=== PATIENT | female | born 2005 | race Caucasian/White ===

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

== ENCOUNTER 2024-05-25 09:30 | Emergency (ER) | payer MEDICAID, SELFPAY ==
[2024-05-25 09:31] VITALS: BP 100/72; PULSE 88; RESP 16; TEMP 36.8; O2SAT 100; BMI 17.6
--- NOTE | 2024-05-25 10:12 | EDS_ITS ---
HPI History of Present Illness Chief Complaint: Dental Narrative Narrative: 18-year-old female who denies significant past medical history presents with chronic pain in her left upper jaw secondary to dental caries. She states that she has had a longstanding pain in her left upper jaw for the last few months. She last saw dentist a year ago. She has not been on antibiotics recently and is taking dgyx-[id number] medications such as Tylenol and ibuprofen. She denies any fevers or chills, no difficulty swallowing, no facial swelling. No exacerbating or alleviating factors. She states she has 2 abscesses in her left upper jaw and a third 1 developing. PFSH PFSH Home Medications ?Medication ?Instructions ?Recorded ?Last Taken ?Type ibuprofen 600 mg tablet 600 mg PO Q8H PRN fever or p ain 05/25/24 Unknown Rx #30 tabs penicillin V potassium 500 mg 500 mg PO Q6H 7 days #28 tabs 05/25/24 Unknown Rx tablet Allergy/AdvReac Type Severity Reaction Status Date / Time No Known Allergies Allergy Verified 07/16/23 19:02 Social History household members: significant other Smoking Status: Never smoker ROS ROS ED ROS Narrative Focused review of systems positive for left upper jaw pain and dental pains. She does have carious teeth. No fevers or chills, no nausea or vomiting, no exacerbating or alleviating factors. She has had dental pain for at least a year. She states that this episode actually started in February of last year, approximately 3 months ago. EXAM Physical Exam Narrative Exam Narrative: Afebrile. Vital signs noted. Nontoxic-appearing. HEENT examination shows PERRL, EOMI. There are carious teeth in the first and third molars. No fluctuance of the gums/gingival abscess. No drooling or trismus. Airway patent. No evidence of Darrel angina. Neck soft and supple. No stridor. Cardiovascular examination regular rate and rhythm. Lungs clear to auscultation bilaterally. Abdomen soft and nontender. Const Vital Signs: 05/25/24 09:31 Temperature 98.3 F Temperature Source Oral Pulse Rate 88 Respiratory Rate 16 Blood Pressure 100/72 Blood Pressure Mean 81 Pulse Ox 100 Oxygen Delivery Method Room Air MDM MDM MDM Narrative Medical decision making narrative: Differential diagnosis includes but not limited to pain secondary to dental caries versus periapical abscess. I reviewed her EMR. She has not had frequent visits for dental pain. I wrote her prescriptions for penicillin VK, and ibuprofen 600 mg and she was given her first doses here in the emergency department. She states she has a dentist with whom she can follow-up. I feel she can be discharged to follow-up. Return instructions to the emergency department reviewed. Disposition is discharged home in stable condition. Discharge Plan Triage Chief Complaint: Dental ED Provider: Ronald Andrew Dx/Rx/DC Orders Clinical Impression: Pain due to dental caries, Pain in upper jaw Instructions: ED Dental Pain, ED Dental Cavity, ED Dental Abscess Prescriptions: New penicillin V potassium 500 mg tablet 500 mg PO Q6H 7 Days Qty: 28 0RF ibuprofen 600 mg tablet 600 mg PO Q8H PRN (Reason: fever or pain) Qty: 30 0RF Primary Care Provider: Care Physician,No Primary Referrals: Care Physician,No Primary [Primary Care Provider] - Activity Restrictions/Additional Instructions: Follow-up with your dentist as soon as possible. Print Language: Kinyarwanda Disposition Disposition: Home, Self Care Discharge Date/Time: 05/25/24 10:22
[2024-05-25] MEDS: Ibuprofen 600 MG Tablet PO (10:20)
--- NOTE | 2024-05-25 10:20 | ED.RN ---
pt resting with eyes closed.
[2024-05-25] MEDS: Penicillin Vk 250 MG Tablet 500 MG PO (10:21)
== END 2024-05-25 10:22 | disposition home or self-care (01) ==
PROVIDERS: Emergency Provider Emergency Medicine; Visit Provider Emergency Medicine
DX: K02.9 Dental caries, unspecified (principal); R68.84 Jaw pain; G89.29 Other chronic pain
CPT/HCPCS: 99282

== ENCOUNTER 2024-09-26 07:08 | Emergency (ER) | payer MEDICAID, SELFPAY ==
[2024-09-26 07:10] VITALS: BP 109/71; PULSE 93; RESP 18; TEMP 36.4; O2SAT 97; BMI 18.8
--- NOTE | 2024-09-26 07:27 | ED.VIS.FEGU ---
HPI HPI - Female History of Present Illness Chief Complaint: Female C/O Informant: patient and spouse/S.O. Narrative Narrative: 18-year-old female states she is 20 weeks , she has an [employer] in [place], but works locally and presents to be seen for vaginal discharge. She has had thick white heterogeneous vaginal discharge for about 1 week along with some external vaginal itching, feels like a yeast infection she has had before. Also, she has had 3 days of rhinorrhea that is at times green, nasal congestion, mild sore throat, occasional earaches and occasional sinus pressure. Her significant other just had the same thing but resolved after 3 to 4 days. She denies any fevers or chills or coughing or dyspnea. No abdominal pain. No vaginal bleeding. States she was treated for BV the 1-2 weeks ago, and this seems a little different than that. Also states that during this she was tested for GC and chlamydia and tested negative, and denies any exposure to it that she knows of, she is monogamous with her significant other. [facility] Medical History Bipolar 1 disorder Medical History no medical history Home Medications ?Medication ?Instructions ?Recorded ?Last Taken ?Type ibuprofen 600 mg tablet 600 mg PO Q8H PRN fever or pain 05/25/24 Unknown Rx #30 tabs penicillin V potassium 500 mg 500 mg PO Q6H 7 days #28 tabs 05/25/24 Unknown Rx tablet miconazole nitrate 2 % vaginal 1 appful vaginal QHS 7 days #45 09/26/24 Unknown Rx cream (Miconazole-7) grams Allergy/AdvReac Type Severity Reaction Status Date / Time No Known Allergies Allergy Verified 09/26/24 07:09 Social History household members: significant other Smoking Status: Never smoker ROS ROS ED Constitutional Constitutional ED: Denies chills or fever(s) ENT ENT ED: Reports ear pain bilateral (off and on), rhinorrhea, sore throat and other Details: sinus pressure at times Cardiovascular Cardiovascular: Denies chest pain Respiratory/Chest Respiratory/Chest: Denies cough or dyspnea Gastrointestinal Gastrointestinal: Denies abdominal pain, nausea or vomiting Genitourinary Genitourinary ED: Denies dysuria or hematuria Integumentary Denies rash EXAM Physical Exam Const Vital Signs: 09/26/24 07:10 Temperature 97.5 F L Temperature Source Temporal Pulse Rate 93 Respiratory Rate 18 Blood Pressure 109/71 Blood Pressure Mean 83 Pulse Ox 97 Oxygen Delivery Method Room Air Positive well nourished and well developed General Appearance ED: well developed and NAD HEENT Reports TM's clear and moist mucous membranes HEENT Narrative: POP clear. no purulent nasal discharge. no sinus tenderness. normocephalic and atraumatic Tympanic Membrane ED: Yes TM's clear Eyes PERRL and EOMs intact bilaterally Neck full ROM, no lymphadenopathy and supple Resp normal respiratory effort and clear to auscultation bilaterally GI non-tender Auscultation: normoactive bowel sounds Palpation: soft Narrative: pelvic deferred Back/Spine General Back: other FROM Extremity normal to inspection General Extremety ED: Negative for edema General Extremity: Negative for edema Neuro oriented x3, CN's II-XII intact bilaterally and no sensory deficits noted Sensorium / Orientation: awake and alert Motor Exam: strength 5/5 throughout Skin no rashes or lesions noted and no wounds MDM MDM MDM Narrative Medical decision making narrative: Given lack of abdominal/systemic symptoms I think reasonable to treat her empirically for vaginal candidiasis without a pelvic which she is comfortable with and prefers. I gave her a list of safe [id number] medications to take during , with regards to the rhinorrhea if it is not allergic it is probably viral. There is no evidence of bacterial infection here, so I do not think she needs any antibiotics I did prescribe her miconazole topical for 7 days, and advised her to follow-up with her coil winder repair. Discharge Plan Triage Chief Complaint: Female C/O Other Complaint: Other, Pain/Inj ED Provider: Reji Garcia Dx/Rx/DC Orders Clinical Impression: Candidiasis of vagina during , Acute rhinitis, Second trimester Instructions: Candidiasis Vaginal Prescriptions: New miconazole nitrate [Miconazole-7] 2 % cream 1 appful vaginal QHS 7 Days Qty: 45 0RF No Action penicillin V potassium 500 mg tablet 500 mg PO Q6H 7 Days Qty: 28 0RF ibuprofen 600 mg tablet 600 mg PO Q8H PRN (Reason: fever or pain) Qty: 30 0RF Primary Care Provider: Care Physician,No Primary Referrals: your [employer] [Other] - 3-5 Days if not improving Activity Restrictions/Additional Instructions: See attached list for safe medications you can take during . Print Language: Turkmen Disposition Disposition: Home, Self Care Discharge Date/Time: 09/26/24 07:46
--- OUTSIDE RECORDS SUMMARY | 2024-09-26 07:29 | XMS RPT_ITS | CCD ---
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 Name Role Phone BRENDAGABY TIDWELL Attending Unavailable Jeremy Vásquez MD Primary Care Provider JEREMY VÁSQUEZ Attending Unavailable REFERRED, SELF Referring Unavailable JEREMY VÁSQUEZ Primary Care Unavailable JEREMY VÁSQUEZ Attending Unavailable JEREMY VÁSQUEZ Referring Unavailable JEREMY VÁSQUEZ Primary Care Unavailable JEREMY VÁSQUEZ Attending Unavailable JEREMY VÁSQUEZ Referring Unavailable JEREMY VÁSQUEZ Primary Care Unavailable BRYSON ALDRIDGE Attending Unavailable LUDIVINA HEIN Referring Unavailable JEREMY VÁSQUEZ Primary Care Unavailable JEREMY VÁSQUEZ Primary Care Unavailable REFERRED, SELF Referring Unavailable GALINA VALDEZ Attending Unavailable JOE FARMER Admitting Unavailable JOE FARMER Primary Care Unavailable JOE FARMER Attending Unavailable JOE FARMER Admitting Unavailable JOE FARMER Primary Care Unavailable JOE FARMER Attending Unavailable JEREMY VÁSQUEZ MD Consulting Unavailable JEREMY VÁSQUEZ MD Referring Unavailable PROVIDER, UNKNOWN Consulting Unavailable Unavailable Primary Care Provider UnavailRonald Jackson Attending Unavailable Care Physician, No Primary Primary Care Unava ilable MessinaUmer Attending Unavailable Care Physician, No Primary Primary Care Unava ilable Jeremy Vásquez Primary Care Provider OVI DELACRUZ Attending Unavailable OVI DELACRUZ Attending Unavailable FAHAD, JEREMY Primary Care Unavailable JEF FABIAN Attending Unavailable JEF FABIAN Admitting Unavailable FAHAD, JEREMY Primary Care Unavailable MARIAN COUGHLIN Attending Unavailable MARIAN COUGHLIN Admitting Unavailable MIKAL WOODSON Attending Unavailable MIKAL WOODSON Referring Unavailable FAHAD, JEREMY Primary Care Unavailable KAITLIN AIKEN Attending Unavailable FAHAD, JEREMY Primary Care Unavailable MAYO MAGUIRE Attending Unavailable KI BREEN Attending Unavailable AUREA RODRIGUEZ Attending Unavailable JEREMY VÁSQUEZ Primary Care Unavailable JEREMY VÁSQUEZ Primary Care Unavailable GLORIA OHARA Attending Unavailable KARRIE VELÁSQUEZ Referring Unavailable KARRIE VELÁSQUEZ Attending Unavailable JEREMY VÁSQUEZ Primary Care Unavailable KI BREEN Referring Unavailable Medications Current Medications Medication Drug Class(es) Dates Sig (Normalized) Sig (Original) [id number] 200 actuat albuterol 0.09 mg/actuat metered dose inhaler (20 sources) beta2-Adrenergic Agonist Start: 05-27-2024 End: 06-26-2024 take 2 puff(s) by inhalation every four hours as needed for wheezing albuterol 108 (90 Base) MCG/ACT inhaler Inhale 2 puffs every 4 hours as needed for wheezing. 18 g 05/27/2024 Active benzonatate 200 mg oral capsule (4 sources) Non-narcotic Antitussive Start: 05-27-2024 End: 06-03-2024 take 1 capsule by mouth every eight hours benzonatate (Tessalon) 200 MG capsule Take 1 capsule (200 mg) by mouth every 8 hours for 7 days. Do not crush or chew. 21 capsule 05/27/2024 06/03/2024 Active cephalexin 500 mg oral capsule (7 sources) Cephalosporin Antibacterial Start: 09-05-2024 End: 09-12-2024 take 1 capsule by mouth four times daily cephalexin (Keflex) 500 MG capsule Take 1 capsule (500 mg) by mouth 4 times daily for 7 days. 28 capsule 09/05/2024 09/12/2024 Active Start: 09-04-2024 End: 09-04-2024 take 500 mg by mouth once 500 mg, Oral, Once, On Tue at 1840, For 1 dose, Suspected Indication (Select all that apply): Urinary Tract Infection Start: 05-06-2024 End: 05-09-2024 take 1 capsule by mouth four times daily cephalexin (Keflex) 500 MG capsule Take 1 capsule (500 mg) by mouth 4 times daily for 3 days. 12 capsule 05/06/2024 05/09/2024 Active clotrimazole 10 mg/ml vaginal cream (3 sources) Azole Antifungal Start: 09-05-2024 End: 09-19-2024 clotrimazole (Lotrimin) 1 % vaginal cream Insert 1 applicator into the vagina Nightly for 14 days. 45 g 09/05/2024 09/19/2024 Active doxylamine succinate 25 mg oral tablet (15 sources) Start: 06-29-2024 End: 12-08-2024 take 1 tablet by mouth once daily as needed for sleep doxylamine (Unisom) 25 MG tablet Take 1 tablet (25 mg) by mouth Nightly as needed for sleep. 30 tablet 3 08/10/2024 12/08/2024 Active ferrous sulfate 325 mg oral tablet (20 sources) Start: 06-16-2024 End: 07-17-2024 take 1 tablet by mouth once daily at breakfast ferrous sulfate 325 (65 Fe) MG tablet Take 1 tablet (325 mg) by mouth daily (with breakfast). 30 tablet 06/17/2024 07/17/2024 Active Start: 07-21-2023 take 1 tablet by jair once daily ferrous sulfate (FEOSOL) 325 (65 FE) MG TABS tablet Take 1 Tablet (65 mg of elemental iron) by mouth daily 30 Tablet 2 07/21/2023 Active metroNIDAZOLE 500 mg oral tablet (3 sources) Nitroimidazole Antimicrobial Start: 09-05-2024 End: 09-12-2024 take 1 tablet by mouth twice daily metroNIDAZOLE (Flagyl) 500 MG tablet Take 1 tablet (500 mg) by mouth 2 times daily for 7 days. 14 tablet 09/05/2024 09/12/2024 Active 24 hr nicotine 0.292 mg/hr transdermal system (14 sources) Cholinergic Nicotinic Agonist Start: 06-29-2024 End: 10-27-2024 nicotine (Nicoderm, Step 3) 7 MG/24HR patch Place 1 patch on the skin Every 24 hours. 30 patch 3 06/29/2024 10/27/2024 Active predniSONE 20 mg oral tablet (4 sources) Start: 05-27-2024 End: 06-01-2024 take 2 tablets by mouth once daily predniSONE (Deltasone) 20 MG tablet Take 2 tablets (40 mg) by mouth daily for 5 days. 10 tablet 05/27/2024 06/01/2024 Active 27-1 MG tablet (20 sources) Start: 06-16-2024 take 1 tablet by mouth once daily 27-1 MG tablet Take 1 tablet by mouth daily. 30 tablet 06/16/2024 Active prochlorperazine 5 mg oral tablet (4 sources) Phenothiazine Start: 06-16-2024 End: 06-23-2024 take 1 tablet by mouth three times daily as needed for nausea prochlorperazine (Compazine) 5 MG tablet Take 1 tablet (5 mg) by mouth 3 times daily as needed for nausea for up to 7 days. 21 tablet 06/16/2024 06/23/2024 Active Start: 06-16-2024 End: 06-16-2024 take 5 mg intravenously every eight hours as needed for nausea and vomiting 5 mg, IntraVENous, Every 8 hours PRN, nausea, vomiting, Starting on 06/16/24 at 0916 pyridoxine hydrochloride 25 mg oral tablet (12 sources) Start: 06-29-2024 End: 09-27-2024 take 1 tablet by mouth every eight hours pyridoxine (Vitamin B-6) 25 MG tablet Take 1 tablet (25 mg) by mouth every 8 hours. 90 tablet 1 06/29/2024 09/27/2024 Active Completed/Discontinued Medications Medication Drug Class(es) Dates Sig (Normalized) Sig (Original) Acetaminophen (2 sources) Start: 06-14-2024 End: 06-16-2024 take 1 tablet by mouth every six hours as needed for pain and fever acetaminophen (Tylenol) tablet 650 mg amoxicillin 875 mg / clavulanate 125 mg oral tablet (5 sources) Penicillin-class Antibacterial Start: 06-16-2024 End: 07-17-2024 take 1 tablet by mouth twice daily amoxicillin-clavul anate (Augmentin) 875-125 MG tablet Take 1 tablet by mouth 2 times daily for 7 days. 14 tablet 06/16/2024 07/17/2024 Discontinued (Therapy completed) cefTRIAXone (Rocephin) 1 g in sodium chloride 0.9 % 50 mL IVPB Mini-Bag Plus (4 sources) Start: 06-15-2024 End: 06-16-2024 1 g, IntraVENous, at 100 mL/hr, Administer over 30 Minutes, Every 24 hours, First dose (after last reorder) on Tue06/15/24 at 0000, For 14 days, Mini-Bag Plus bag, Suspected Indication (Select all that apply): Urinary Tract Infection Start: 06-14-2024 End: 06-14-2024 1 g, IntraVENous, at 100 mL/ hr, Administer over 30 Minutes, Once, On Chastity 06/14/24 at 0200, For 1 dose, Mini-Bag Plus bag, Suspected Indication (Select all that apply): Urinary Tract Infection nitrofurantoin, macrocrystals 25 mg / nitrofurantoin, monohydrate 75 mg oral capsule (11 sources) Nitrofuran Antibacterial Start: 06-26-2024 End: 07-17-2024 take 1 capsule by mouth twice daily nitrofurantoin, macrocrystal-monohydrate, (Macrobid) 100 MG capsule Indications: Uncomplicated Urinary Tract Infection Take 1 capsule (100 mg) by mouth 2 times daily for 7 days. 14 capsule 06/29/2024 07/17/2024 Discontinued (Therapy completed) polyethylene glycol 3350 30698 mg powder for oral solution (2 sources) Osmotic Laxative Start: 06-14-2024 End: 06-16-2024 take 17 g by mouth every twenty-four hours as needed for constipation 17 g, Oral, Daily PRN, constipation, Starting on Chastity 06/14/24 at 0907, 1st line for treatment of constipation - give scheduled if no bowel movement in past 24 hours. vitamin tablet (2 sources) Start: 06-14-2024 End: 06-16-2024 take 1 tablet by mouth once daily 1 tablet, Oral, Daily, First dose on Chastity 06/14/24 at 1120 50 ml sodium chloride 9 mg/ml injection (2 sources) Start: 06-14-2024 End: 06-14-2024 1,000 mL, IntraVENous, at 1,000 mL/hr, Administer over 1 Hours, Once, On Chastity 06/14/24 at 0135, For 1 dose Problems Active Problems Problem Classification Problem Date Documented Da te Episodic/Chronic Bacterial infection; unspecified site (2 sources) Other specified bacterial agents as the cause of diseases classified elsewhere; Translations: [Other specified bacterial agents as the cause of diseases classified elsewhere] Onset: 09-04-2024 Episodic Conditions associated with dizziness or vertigo (2 sources) Dizziness; Translations: [Dizziness] Onset: 08-06-2024 Episodic Deficiency and other anemia (1 source) Microcytic anemia; Translations: [Iron deficiency anemia, unspecified] 07-16-2023 Episodic Deficiency and other anemia (19 sources) Iron deficiency anemia; Translations: [Iron deficiency anemia, unspecified] Onset: 06-25-2024 06-25-2024 Episodic Deficiency and other anemia (1 source) Iron deficiency anemia secondary to inadequate dietary iron intake; Translations: [Other iron deficiency anemias] 08-10-2024 Episodic Deficiency and other anemia (2 sources) Iron deficiency anemia, unspecified; Translations: [Iron deficiency anemia, unspecified] Onset: 06-25-2024 Episodic Disorders of teeth and jaw (1 source) Other specified disorders of teeth and supporting structures; Translations: [Other specified disorders of teeth and supporting structures] Onset: 06-10-2024 Episodic Hemorrhage during ; abruptio placenta; placenta previa (5 sources) Threatened miscarriage; Translations: [Threatened ] Onset: 06-29-2024 06-14-2024 Episodic Inflammatory diseases of female pelvic organs (6 sources) Vaginitis; Translations: [Acute vaginitis] Onset: 09-04-2024 10-12-2022 Episodic Menstrual disorders (3 sources) Amenorrhea; Translations: [Amenorrhea, unspecified] Onset: 06-29-2024 06-29-2024 Chronic Mycoses (2 sources) Candidiasis of vagina; Translations: [Nicki vaginitis] 09-05-2024 Episodic Noninfectious gastroenteritis (1 source) Chronic diarrhea; Translations: [Noninfective gastroenteritis and colitis, unspecified] 07-16-2023 Episodic Open wounds of head; neck; and trunk (4 sources) Laceration - injury; Translations: [Laceration] 12-19-2020 Episodic Other complications of (20 sources) Urinary tract infection in ; Translations: [Unspecified infection of urinary tract in , first trimester] Onset: 06-14-2024 06-14-2024 Episodic Other complications of (2 sources) Pyelonephritis in ; Translations: [Infections of kidney in , unspecified trimester] 06-14-2024 Episodic Other complications of (2 sources) Unspecified infection of urinary tract in , first trimester; Translations: [Unspecified infection of urinary tract in , first trimester] Onset: 06-14-2024 Episodic Other gastrointestinal disorders (3 sources) Diarrhea; Translations: [Diarrhea, unspecified] 10-12-2022 Episodic Other lower respiratory disease (2 sources) Cough; Translations: [Acute cough] 05-27-2024 Episodic Other nutritional; endocrine; and metabolic disorders (2 sources) 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; Translations: [Other disorders of calcium metabolism] 09-04-2024 Chronic Other nutritional; endocrine; and metabolic disorders (2 sources) Other disorders of calcium metabolism; Translations: [Other disorders of calcium metabolism] Onset: 09-04-2024 Chronic Other nutritional; endocrine; and metabolic disorders (1 source) Unintentional weight loss; Translations: [Abnormal weight loss] 07-16-2023 Episodic Other nutritional; endocrine; and metabolic disorders (1 source) Weight loss; Translations: [Abnormal weight loss] 07-20-2023 Episodic Other and delivery including normal (20 sources) ; Translations: [Encounter for supervision of normal first , unspecified trimester] Onset: 07-04-2024 07-17-2024 Episodic Other screening for suspected conditions (not mental disorders or infectious disease) (4 sources) Encounter for other specified screening; Translations: [Encounter for screening for cervical length] Onset: 09-12-2024 Episodic Other upper respiratory disease (2 sources) Allergic rhinitis; Translations: [Allergic rhinitis, unspecified] Onset: 01-30-2012 06-17-2022 Chronic Substance-related disorders (16 sources) Nicotine dependence; Translations: [Nicotine dependence, other tobacco product, uncomplicated] Onset: 07-17-2024 07-17-2024 Chronic Superficial injury; contusion (4 sources) Contusion of hand; Translations: [Contusion of right hand, initial encounter] 01-22-2022 Episodic Syncope (2 sources) Syncope; Translations: [Syncope and collapse] 12-08-2022 Episodic Unclassified (8 sources) OB Reminders Onset: 07-19-2024 07-19-2024 Unclassified (8 sources) Patient Stated Goal Onset: 07-19-2024 07-19-2024 Unclassified (1 source) Acute candidiasis of vulva and vagina; Translations: [Acute candidiasis of vulva and vagina] Onset: 09-04-2024 Unclassified (1 source) Acute cough; Translations: [Acute cough] Onset: 05-27-2024 Past or Other Problems Problem Classification Problem Date Documented Da te Episodic/Chronic Abdominal pain (6 sources) Lower abdominal pain; Translations: [Lower abdominal pain, unspecified] Onset: 05-06-2024 05-06-2024 Episodic Genitourinary symptoms and ill-defined conditions (9 sources) Dysuria; Translations: [Dysuria] Onset: 05-27-2024 05-27-2024 Episodic Malaise and fatigue (2 sources) Fatigue; Translations: [Other fatigue] Onset: 07-21-2023 07-16-2023 Episodic Other complications of (2 sources) Infections of kidney in , unspecified trimester; Translations: [Infections of kidney in , unspecified trimester] Onset: 06-14-2024 Episodic Unclassified (3 sources) Acute cough; Translations: [Acute cough] Onset: 05-27-2024 05-27-2024 Unclassified (1 source) Acute candidiasis of vulva and vagina; Translations: [Acute candidiasis of vulva and vagina] Onset: 09-04-2024 Urinary tract infections (6 sources) Acute cystitis; Translations: [Acute cystitis with hematuria] Onset: 05-06-2024 05-06-2024 Episodic Results Test Name Value Interpretation Reference Range Facil ity 37on 09-12-2024 37 Your Second Trimester: Care Instructions What you can expect During this time, you may start to show, so that you look to people around you. You will also start to feel baby move. At first, these small movements feel like fluttering or butterflies. Some women say that they feel like gas bubbles. As your baby grows, these movements will become stronger. You may also notice that your baby hiccups. Babies at this stage can now suck their thumbs. You may find that your nausea and fatigue are gone. You may feel better overall and have more energy than you did in your first trimester. But you might now also have some new discomforts, like sleep problems or leg cramps. Talk to your doctor about things you can do at home to ease these problems. Proper Weight Gain in Experts recommend that you gain about 1 pound a month during the first 3 months of your . Experts recommend that you gain about 1 pound a week during your last 6 months of , for a total weight gain of 25 to 35 pounds. If you are underweight, you will need to gain more weight (about 28 to 40 pounds). If you are overweight, you may not need to gain as much weight (about 15 to 25 pounds). If you are gaining weight too fast, use common sense. Exercise every day, and limit sweets, fast foods, and fats. Choose lean meats, fruits, and vegetables. Follow-up care is a bustamante part of your treatment and safety. Be sure to make and go to all appointments, and call your doctor if you are having problems. It's also a good idea to know your test results and keep a list of the medicines you take. You can expect an anatomy ultrasound at 18-20 weeks. If your is uncomplicated, this may be the only ultrasound you need Most women are tested for gestational diabetes between weeks 24 and 28. Gestational diabetes occurs when your blood sugar level gets too high when you're . The test is important, because you can have gestational diabetes and not know it. But the condition can cause problems for your baby. Talk to your doctor about getting a flu shot to help keep you healthy during your . When to call your doctor Call 911 anytime you think you may need emergency care. For example, call if: You have severe vaginal bleeding. You have sudden, severe pain in your belly. You passed out (lost consciousness). You have a seizure. You see or feel the umbilical cord. You think you are about to deliver your baby and can't make it safely to the hospital. Call your doctor now or seek immediate medical care if: You have vaginal bleeding. You have belly pain. You have a fever. You have symptoms of preeclampsia, such as: Sudden swelling of your face, hands, or feet. New vision problems (such as dimness, blurring, or seeing spots). A severe headache. You have a sudden release of fluid from your vagina. (You think your water broke.) You think that you may be in labor. This means that you've had at least 6 contractions in an hour. You notice that your baby has stopped moving or is moving much less than normal. You have symptoms of a urinary tract infection. These may include: Pain or burning when you urinate. A frequent need to urinate without being able to pass much urine. Pain in the flank, which is just below the rib cage and above the waist on either side of the back. Blood in your urine. Normal [facility] COMPLETE URINALYSISon 2024 BILIRUBIN, TOTAL PRESENCE IN URINE Negative Normal Negative [facility] Comment on above: Performed By: #### L [id number] #### Rope Twisting Machine Operator: ISABEL YUSUF ([id number]) [facility] [address] [place] [address] Clarity (U) Clear Normal Clear [facility] Comment on above: Performed By: #### L [id number] #### Rope Twisting Machine Operator: ISABEL YUSUF ([id number]) [facility] ([facility]) [address] [place] [address] Color (U) Light Yellow Normal Lt. Yellow [facility] Comment on above: Performed By: #### L [id number] #### Rope Twisting Machine Operator: ISABEL YUSUF ([id number]) [facility] ([facility]) [address] [place] [address] GLUCOSE (MG/DL) IN URINE Normal Normal Normal (<70 ) [facility] Comment on above: Performed By: #### L [id number] #### Rope Twisting Machine Operator: ISABEL YUSUF ([id number]) [facility]) [address] [place] [address] HEMOGLOBIN PRESENCE IN URINE Negative Normal Negative [facility] Comment on above: Performed By: #### L [id number] #### Rope Twisting Machine Operator: ISABEL YUSUF ([id number]) [facility] [address] [place] [address] Ketones Ql (U) 20 mg/dL Abnormal Negative [facility] Comment on above: Performed By: #### L [id number] #### Rope Twisting Machine Operator: ISABEL YUSUF ([id number]) [facility]) [address] [place] [address] LEUKOCYTE ESTERASE PRESENCE IN URINE BY TEST STRIP Negative Normal Negative [facility] Comment on above: Performed By: #### L [id number] #### Rope Twisting Machine Operator: ISABEL YUSUF ([id number]) [facility] ([facility]) [address] [place] [address] NITRITE PRESENCE IN URINE Negative Normal Negative [facility] Comment on above: Performed By: #### L [id number] #### Rope Twisting Machine Operator: ISABEL YUSUF ([id number]) [facility] ([facility]) [address] [place] [address] pH (U) 7.0 [pH] Normal 5.0-8.0 [facility] Comment on above: Performed By: #### L [id number] #### Rope Twisting Machine Operator: ISABEL YUSUF ([id number]) [facility] ([facility]) [address] [place] [address] Protein (U) [Mass/Vol] Negative Normal Negative [facility] Comment on above: Performed By: #### L [id number] #### Rope Twisting Machine Operator: ISABEL YUSUF ([id number]) [facility] ([facility]) [address] [place] [address] Specific gravity (U) [Rel density] 1.010 Normal 1.005-1.030 [facility] Comment on above: Performed By: #### L [id number] #### Rope Twisting Machine Operator: ISABEL YUSUF ([id number]) [facility] ([facility]) [address] [place] [address] UROBILINOGEN (MG/DL) IN URINE Normal Normal Normal (0-1) [facility] Comment on above: Performed By: #### L [id number] #### Rope Twisting Machine Operator: ISABEL YUSUF ([id number]) [facility]) [address] [place] [address] Progress Noteon 09-12-2024 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 Normal [facility] Progress Note ---- Attestation signed by Lynda Neal MD at 09/12/2024 11:23 AM [facility]: This patient was seen [facility] by the resident. I reviewed and agree with the care provided by the resident during or immediately following the visit including the patient's medical history, the resident's finding in the physical exam, patient's diagnosis and treatment plan. ---- Assessment and Plan: Vaping nicotine dependence, tobacco product Patient states she is not using any type of nicotine product at this time she has slowly stopped using the patches continued cessation encouraged , supervision of first Doing well, No OB complaints BP normotensive FHR: 150s Anatomy US today, read pending Reviewed triage precautions GTT and rCBC ordered for 24wk Iron deficiency anemia rCBC ordered for 24wk Recurrent UTI (urinary tract infection) complicating , first trimester Negative urine culture 09/04 Repeat UA and culture today as she feels like she might be having some UTI symptoms and also reports history of kidney stones Chief Complaint Patient presents with Routine Visit Discuss short term disability 18 y.o. yo at 18w0d Here today for MOHIT She has been dealing with a GI infection with E. Coli. States she was seen in the ED for GI symptoms and was not started on any type of antibiotic and that it would run its course. She reports some diarrhea but denies significant nausea/vomiting. Denies DFM/VB/CTX/LOF ROS: No pelvic pain. Some LLQ cramping. PE: Vitals: 09/12/24 1019 BP: 104/65 Pulse: 79 Body mass index is 18.54 kg/m?. PE: Gen: NAD, A&Ox3 HEENT: NC/AT, EOMI Abd: LLQ tenderness to palpation, uterus palpable on exam Skin: warm/dry BLE: without edema, non-tender Follow up in about 4 weeks (around 10/10/2024) for Routine OB. Normal [facility] URINE CULTUREon 09-12-2024 Bacteria identified Cx Nom (U) URINE CULTURE Reference No growth (<1,000 CFU/mL) [ S = SUSCEPTIBLE R = RESISTANT I = INTERMEDIATE S-DD = Susceptible-dose dependent NS = Non-susceptible NO = No Interpretation ] Normal [facility] Comment on above: Performed By: #### L [id number] #### Rope Twisting Machine Operator: ISABEL YUSUF ([id number]) [facility] ([facility]) [address] [place] [address] US OB DETAIL ANATOMY T RANSABDOMINALon 09-12-2024 US OB DETAIL ANATOMY TRANSABDOMINAL OBSTETRICS REPORT (Signed Final 09/12/2024 04:22 pm) PATIENT INFO: ID #: [id number] : [birth year] (18 yrs)(F) Name: SUMIT GREEN Visit Date: 09/12/2024 09:51 am PERFORMED BY: Attending: Tegan Bautista MD, KEVIN, FACOG Performed By: Tracy Sibley RDMS Referred By: KARRIE Layton Phy.: KI BREEN Location: [facility] Visit Type: Outpatient SERVICE(S) PROVIDED: Level II complete (Targeted OB) [id number] US Transvaginal 11234 INDICATIONS: Encounter for supervision of normal first Z34.02 , second trimester Encounter for other specified Z36.89 screening Encounter for screening for Z36.86 cervical length NIPT Low Risk VITAL SIGNS: Weight (lb): 111 Height: 5'5 BMI: 18.47 EVALUATION: Num Of Fetuses: 1 Heart Rate(bpm): 131 Cardiac Activity: Regular rhythm Lie: Longitudinal Presentation: Breech Placenta: Posterior Circumvallate P. Cord Insertion: Normal Amniotic Fluid BETZAIDA FV: Within normal limits Largest Pocket(cm) 3.6 BIOMETRY: BPD: 43.5 mm G.Age: 19w 1d 91 % OFD: 55.9 mm HC: 159.2 mm G.Age: 18w 5d 79 % AC: 150.2 mm G.Age: 20w 2d 97 % FL: 29.8 mm G.Age: 19w 1d 85 % CER: 19.8 mm G.Age: 19w 1d 95 % NFT: 2.81 mm LV: 6.23 mm CM: 3.99 mm CI: 77.8 % 70 - 86 FL/HC: 18.7 % 15.8 - 18 HC/AC: 1.06 1.07 - 1.29 FL/BPD: 68.5 % FL/AC: 19.8 % 20 - 24 Est. FW: 305 gm 0 lb 11 oz GESTATIONAL AGE: LMP: 18w 0d Date: 05/09/24 ARVIND: 02/13/25 U/S Today: 19w 2d ARVIND: 02/04/25 Best: 18w 0d Det. By: LMP (05/09/24) ARVIND: 02/13/25 TARGETED ANATOMY: Central Nervous System Calvarium/Cranial V.: Normal appearance Intracranial Ronda: Normal appearance Cavum: Normal appearance Parenchyma: Normal appearance Lateral Ventricles: Normal appearance Choroid Plexus: Normal appearance Cereb./Vermis: Normal appearance Cisterna Magna: Normal appearance Corpus Callosum: Normal appearance Midline Falx: Normal appearance Spine Cervical: Normal appearance Thoracic: Normal appearance Lumbar: Normal appearance Sacral: Normal appearance Shape/Curvature: Normal appearance Head/Neck Face: Normal appearance Lips: Normal appearance Neck: Normal appearance Nuchal Fold: Normal appearance Nasal Bone: Present Palate: Normal appearance Profile: Normal appearance Orbits/Eyes: Normal appearance Mandible: Normal appearance Maxilla: Normal appearance Thorax Thoracic Contour: Normal appearance Lungs: Normal appearance 4 Chamber View: Normal appearance Cardiac Activity: Observed Cardiac Rhythm: Normal appearance Cardiac Situs: Normal appearance Rt Outflow Tract: Normal appearance Lt Outflow Tract: Normal appearance Aortic Arch: Normal appearance Ductal Arch: Normal appearance SVC: Normal appearance Interventr. Septum: Normal appearance Cardiac Willis: Normal appearance Diaphragm: Normal appearance 3 Vessel View: Normal appearance 3 V Trachea View: Normal appearance IVC: Normal appearance Crossing: Normal appearance Abdomen Ventral Wall: Normal appearance Cord Insertion: Normal appearance Situs: Normal appearance Stomach: Normal appearance Liver: Normal appearance Lt Kidney: Normal appearance Rt Kidney: Normal appearance Bladder: Normal appearance Bowel: Normal appearance Spleen: Normal appearance Extremities Lt Humerus: Normal appearance Rt Humerus: Normal appearance Lt Forearm: Normal appearance Rt Forearm: Normal appearance Lt Hand: Normal appearance Rt Hand: Normal appearance Lt Femur: Normal appearance Rt Femur: Normal appearance Lt Lower Leg: Normal appearance Rt Lower Leg: Normal appearance Lt Foot: Normal appearance Rt Foot: Normal appearance Other Umbilical Cord: Normal 3-vessel Genitalia: Male Comment: Renal arteries and Bilateral Ankles - Normal appearance CERVIX UTERUS ADNEXA: Cervix Length: 4.3 cm. Cervix appears closed and shows no change with fundal pressure. Adnexa Both adnexae appeared unremarkable. ----- (more content not included)... Normal [facility] OB TRANSVAGINALon 09-12- [facility] US OB TRANSVAGINAL OBSTETRICS REPORT (Signed Final 09/12/2024 04:22 pm) PATIENT INFO: ID #: [id number] : [birth year] (18 yrs)(F) Name: SUMIT GREEN Visit Date: 09/12/2024 09:51 am PERFORMED BY: Attending: Tegan Bautista MD, KEVIN, FACOG Performed By: Tracy Sibley RDMS Referred By: KARRIE VELÁSQUEZ [facility] Phy.: KI BREEN Location: [facility] Visit Type: Outpatient SERVICE(S) PROVIDED: US Level II complete (Targeted OB) [id number] US Transvaginal [id number] INDICATIONS: Encounter for supervision of normal first Z34.02 , second trimester Encounter for other specified Z36.89 screening Encounter for screening for Z36.86 cervical length NIPT Low Risk VITAL SIGNS: Weight (lb): 111 Height: 5'5 BMI: 18.47 EVALUATION: Num Of Fetuses: 1 Heart Rate(bpm): 131 Cardiac Activity: Regular rhythm Lie: Longitudinal Presentation: Breech Placenta: Posterior Circumvallate P. Cord Insertion: Normal Amniotic Fluid BETZAIDA FV: Within normal limits Largest Pocket(cm) 3.6 BIOMETRY: BPD: 43.5 mm G.Age: 19w 1d 91 % OFD: 55.9 mm HC: 159.2 mm G.Age: 18w 5d 79 % AC: 150.2 mm G.Age: 20w 2d 97 % FL: 29.8 mm G.Age: 19w 1d 85 % CER: 19.8 mm G.Age: 19w 1d 95 % NFT: 2.81 mm LV: 6.23 mm CM: 3.99 mm CI: 77.8 % 70 - 86 FL/HC: 18.7 % 15.8 - 18 HC/AC: 1.06 1.07 - 1.29 FL/BPD: 68.5 % FL/AC: 19.8 % 20 - 24 Est. FW: 305 gm 0 lb 11 oz GESTATIONAL AGE: LMP: 18w 0d Date: 05/09/24 ARVIND: 02/13/25 U/S Today: 19w 2d ARVIND: 02/04/25 Best: 18w 0d Det. By: LMP (05/09/24) ARVIND: 02/13/25 TARGETED ANATOMY: Central Nervous System Calvarium/Cranial V.: Normal appearance Intracranial Ronda: Normal appearance Cavum: Normal appearance Parenchyma: Normal appearance Lateral Ventricles: Normal appearance Choroid Plexus: Normal appearance Cereb./Vermis: Normal appearance Cisterna Magna: Normal appearance Corpus Callosum: Normal appearance Midline Falx: Normal appearance Spine Cervical: Normal appearance Thoracic: Normal appearance Lumbar: Normal appearance Sacral: Normal appearance Shape/Curvature: Normal appearance Head/Neck Face: Normal appearance Lips: Normal appearance Neck: Normal appearance Nuchal Fold: Normal appearance Nasal Bone: Present Palate: Normal appearance Profile: Normal appearance Orbits/Eyes: Normal appearance Mandible: Normal appearance Maxilla: Normal appearance Thorax Thoracic Contour: Normal appearance Lungs: Normal appearance 4 Chamber View: Normal appearance Cardiac Activity: Observed Cardiac Rhythm: Normal appearance Cardiac Situs: Normal appearance Rt Outflow Tract: Normal appearance Lt Outflow Tract: Normal appearance Aortic Arch: Normal appearance Ductal Arch: Normal appearance SVC: Normal appearance Interventr. Septum: Normal appearance Cardiac Willis: Normal appearance Diaphragm: Normal appearance 3 Vessel View: Normal appearance 3 V Trachea View: Normal appearance IVC: Normal appearance Crossing: Normal appearance Abdomen Ventral Wall: Normal appearance Cord Insertion: Normal appearance Situs: Normal appearance Stomach: Normal appearance Liver: Normal appearance Lt Kidney: Normal appearance Rt Kidney: Normal appearance Bladder: Normal appearance Bowel: Normal appearance Spleen: Normal appearance Extremities Lt Humerus: Normal appearance Rt Humerus: Normal appearance Lt Forearm: Normal appearance Rt Forearm: Normal appearance Lt Hand: Normal appearance Rt Hand: Normal appearance Lt Femur: Normal appearance Rt Femur: Normal appearance Lt Lower Leg: Normal appearance Rt Lower Leg: Normal appearance Lt Foot: Normal appearance Rt Foot: Normal appearance Other Umbilical Cord: Normal 3-vessel Genitalia: Male Comment: Renal arteries and Bilateral Ankles - Normal appearance CERVIX UTERUS ADNEXA: Cervix Length: 4.3 cm. Cervix appears closed and shows no change with fundal pressure. Adnexa Both adnexae appeared unremarkable. ----- (more content not included)... Normal [facility] Urinalysis complete panel (U )Ordered By: Agustina Pena on 09-12-2024 Bilirubin Ql (U) Negative Negative mg/dL [facility] Clarity (U) Clear Clear [facility] Color (U) Light Yellow Lt. Yellow [facility] Glucose Ql (U) Normal Normal (<70) mg/dL [facility] Hemoglobin Ql (U) Negative Negative mg/dL [facility] Interpretation and review of laboratory results Abnormal [facility] Ketones (U) [Mass/Vol] 20 mg/dL Abnormal Negative [facility] Leukocyte esterase Test strip Ql (U) Negative Negative Herrera/uL [facility] Nitrite Ql (U) Negative Negative [facility] pH (U) 7.0 [pH] 5.0 - 8.0 pH [facility] Protein (U) [Mass/Vol] Negative Negative mg/d L [facility] Specific gravity (U) [Rel density] 1.01 1.005 - 1.030 [facility] Urobilinogen (U) [Mass/Vol] Normal Normal (0-1) mg/dL [facility] Progress Noteon 09-10-2024 Progress Note Negative urine culture 09/04 Repeat UA and culture today as she feels like she might be having some UTI symptoms and also reports history of kidney stones Normal [facility] Progress Note rCBC ordered for 24wk Normal [facility] Progress Note Doing well, No OB complaints BP normotensive FHR: 150s Anatomy US today, read pending Reviewed triage precautions GTT and rCBC ordered for 24wk Normal [facility] Progress Note Patient states she is not using any type of nicotine product at this time she has slowly stopped using the patches continued cessation encouraged Normal [facility] Bacteria identified Cx Nom ( U)Ordered By: Love Vergara on 09-05-2024 Interpretation and review of laboratory results Normal [facility] Bacterial vaginosis and vagi nitis rRNA panel Probe (Vag fld)on 09-05-2024 Bacterial vaginosis Ql (Vag fld) [Interp] Detected Abnormal Not Detected [facility] C. glabrata DNA LATRICE+probe Ql (Vag fld) Not detected Not Detected [facility] Nicki sp DNA LATRICE+probe Ql (Vag fld) Detected Abnormal Not Detected [facility] Interpretation and review of laboratory results Abnormal [facility] T. vaginalis DNA LATRICE+probe Ql (Vag fld) Not detected Not Detected [facility] Methodology: real-time PCR A negative result does not preclude a possible infection. This assay can detect the Nicki species C. albicans, C. tropicalis, C. parapsilosis, and C. dubliniensis but does not differentiate among them. The assay also detects C. glabrata and C. krusei, but does not differentiate between them. Results should be interpreted in conjunction with other clinical data. This test has not been validated for use with specimens collected by patients at home. This test is intended for medical purposes only and is not valid for the evaluation of suspected sexual abuse or for other forensic purposes. [facility] ED Nursing Noteon 09-05-2024 ED Nursing Note Discharge instructions reviewed with pt and she had no further questions. Pt walked out with a steady gait observed and no distress noted. Normal [facility] Laboratory - Microbiology an d Antimicrobial susceptibilityOrdered By: Love Vergara on 09-05-2024 Bacteria identified Cx Nom (U) Normal urogenital maira present [facility] N. gonorrhoeae DNA LATRICE+probe Ql (Cervical mucus)on 09-05-2024 C. trachomatis DNA LATRICE+probe Ql (Unsp spec) Not detected Not Detected [facility] Interpretation and review of laboratory results Normal [facility] N gonorrhoeae, DNA Probe Not detected Not Detec génesis [facility] Methodology: real-time PCR This test is intended for medical purposes only and is not intended for the evaluation of suspected sexual abuse or for other forensic purposes. In certain contexts, culture may be required to meet applicable laws and regulations for diagnosis of C. trachomatis and N. gonorrhoeae infections. Per 2014 CDC recommmendations, this test does not include confirmation of positive results by an alternative nucleic acid target. A negative result does not exclude the possibility of infection. A result of invalid indicates that a new specimen should be collected if clinically indicated. [facility] T. vaginalis DNA LATRICE+probe Q l (Genital specimen)on 09-05-2024 Interpretation and review of laboratory results Normal [facility] Trichomonas vaginalis Not detected Not Detected [facility] Methodology: real-time PCR A negative result does not completely rule out infection with T. vaginalis. Results should be interpreted in conjunction with other clinical data. This test has not been validated for use with self-collected vaginal swab specimens from patients. This test is intended for medical purposes only and is not intended for the evaluation of suspected sexual abuse or for other forensic purposes. [facility] US RETROPERITONEALon 025 RETROPERITONEAL Patient Name: SUMIT GREEN : 2005 Exam Date/Time: 09/04/2024 00:45 Procedure: US RETROPERITONEAL Ordering Provider: DAVIS JOSHUA Reason For Exam: Suspected ureteral stone, . US RETROPERITONEAL COMPLETE CLINICAL INDICATION: Suspected ureteral stone, . Pain TECHNIQUE: Complete ultrasound of the genitourinary retroperitoneal structures including color flow imaging and bladder COMPARISON: 06/14/2024 FINDINGS: RIGHT KIDNEY: Size: 11.5 x 4 x 4 cm Echogenicity: normal Parenchymal thickness: normal Contour: smooth Pelvicalyceal dilatation: none Calculus: none Mass: none Cyst: none LEFT KIDNEY: Size: 11.6 x 5.1 x 5.3 cm Echogenicity: normal Parenchymal thickness: normal Contour: smooth Pelvicalyceal dilatation: none Calculus: Within the lower pole is shadowing echogenic focus measuring 0.5 cm corresponding to a calculus Mass: none Cyst: none Bladder: Mostly collapsed. Limited visualization IMPRESSION: 1. Nonobstructing left lower pole renal calculus measuring 0.5 cm. 2. No hydronephrosis. Report Dictated on Electronically Signed By: Dru Caban MD Electronically Signed Date/Time: 09/05/2024 1:30 AM EDT [facility] US Retroperitoneumon 025 1. Nonobstructing left lower pole renal calculus measuring 0.5 cm. 2. No hydronephrosis. Report Dictated on Electronically Signed By: Dru Caban MD Electronically Signed Date/Time: 09/05/2024 1:30 AM T [facility] Patient Name: SUMIT GREEN : 2005 Exam Date/Time: 09/04/2024 00:45 Procedure: US RETROPERITONEAL Ordering Provider: DAVIS JOSHUA Reason For Exam: Suspected ureteral stone, . US RETROPERITONEAL COMPLETE CLINICAL INDICATION: Suspected ureteral stone, . Pain TECHNIQUE: Complete ultrasound of the genitourinary retroperitoneal structures including color flow imaging and bladder COMPARISON: 06/14/2024 FINDINGS: RIGHT KIDNEY: Size: 11.5 x 4 x 4 cm Echogenicity: normal Parenchymal thickness: normal Contour: smooth Pelvicalyceal dilatation: none Calculus: none Mass: none Cyst: none LEFT KIDNEY: Size: 11.6 x 5.1 x 5.3 cm Echogenicity: normal Parenchymal thickness: normal Contour: smooth Pelvicalyceal dilatation: none Calculus: Within the lower pole is shadowing echogenic focus measuring 0.5 cm corresponding to a calculus Mass: none Cyst: none Bladder: Mostly collapsed. Limited visualization [facility] Dru Caban MD - 09/05/2024 Patient Name: SUMIT GREEN : 2005 Exam Date/Time: 09/04/2024 00:45 Procedure: US RETROPERITONEAL Ordering Provider: DAVIS JOSHUA Reason For Exam: Suspected ureteral stone, . US RETROPERITONEAL COMPLETE CLINICAL INDICATION: Suspected ureteral stone, . Pain TECHNIQUE: Complete ultrasound of the genitourinary retroperitoneal structures including color flow imaging and bladder COMPARISON: 06/14/2024 FINDINGS: RIGHT KIDNEY: Size: 11.5 x 4 x 4 cm Echogenicity: normal Parenchymal thickness: normal Contour: smooth Pelvicalyceal dilatation: none Calculus: none Mass: none Cyst: none LEFT KIDNEY: Size: 11.6 x 5.1 x 5.3 cm Echogenicity: normal Parenchymal thickness: normal Contour: smooth Pelvicalyceal dilatation: none Calculus: Within the lower pole is shadowing echogenic focus measuring 0.5 cm corresponding to a calculus Mass: none Cyst: none Bladder: Mostly collapsed. Limited visualization IMPRESSION: 1. Nonobstructing left lower pole renal calculus measuring 0.5 cm. 2. No hydronephrosis. Report Dictated on Electronically Signed By: Dru Caban MD Electronically Signed Date/Time: 09/05/2024 1:30 AM EDT [facility] RetroperitoneumOrdered By : Dru Caban on 09-05-2024 [facility] [employer] Work Phone: CHLAMYDIA/GONORRHEAon 2024 CHLAMYDIA/GONORRHEA NEISSERIA GONORRHOEAE DNA PROBE Reference Not Detected Not Detected CHLAMYDIA TRACHOMATIS DNA PROBE Reference Not Detected Not Detected ORDER COMMENTS: Methodology: real-time PCR This test is intended for medical purposes only and is not intended for the evaluation of suspected sexual abuse or for other forensic purposes. In certain contexts, culture may be required to meet applicable laws and regulations for diagnosis of C. trachomatis and N. gonorrhoeae infections. Per 2014 CDC recommmendations, this test does not include confirmation of positive results by an alternative nucleic acid target. A negative result does not exclude the possibility of infection. A result of invalid indicates that a new specimen should be collected if clinically indicated. Normal [facility] Comment on above: Performed By: #### L [id number] #### Rope Twisting Machine Operator: ISABEL YUSUF ([id number]) [facility] ([facility]) [address] [place] [address] COMPLETE URINALYSIS WITH REF DAMIEN TO CULTUREon 09-04-2024 BACTERIA (#/HPF) IN URINE Many Abnormal Negative [facility] Comment on above: Performed By: #### L [id number] ####Rope Twisting Machine Operator: ISABEL YUSUF ([id number])[facility] ([facility])[address] [place] [address]#### [id number] ####Rope Twisting Machine Operator: ISABEL YUSUF ([id number])[facility] ([facility])[address] [place] [address] BILIRUBIN, TOTAL PRESENCE IN URINE Negative Normal Negative [facility] Comment on above: Performed By: #### L [id number] ####Rope Twisting Machine Operator: ISABEL YUSUF ([id number])[facility] ([facility])[address] [place] [address]#### [id number] ####Rope Twisting Machine Operator: ISABEL YUSUF ([id number])[facility] ([facility])[address] [place] [address] CALCIUM OXALATE CRYSTALS (#/HPF) IN URINE Few Abnormal Negative [facility] Comment on above: Performed By: #### L [id number] ####Rope Twisting Machine Operator: ISABEL YUSUF ([id number])[facility] ([facility])[address] [place] [address]#### [id number] ####Rope Twisting Machine Operator: ISABEL YUSUF ([id number])[facility] ([facility])[address] [place] [address] Clarity (U) Extra Turbid Abnormal Clear [facility] Comment on above: Performed By: #### L [id number] ####Rope Twisting Machine Operator: ISABEL YUSUF ([id number])[facility] ([facility])[address] [place] [address]#### [id number] ####Rope Twisting Machine Operator: ISABEL YUSUF ([id number])[facility] ([facility])[address] [place] [address] Color (U) Yellow Normal Lt. Yellow [facility] Comment on above: Performed By: #### L [id number] ####Rope Twisting Machine Operator: ISABEL YUSUF ([id number])[facility] ([facility])[address] [place] [address] [place]#### [id number] ####Rope Twisting Machine Operator: ISABEL YUSUF ([id number])[facility] ([facility])[address] [place] [address] GLUCOSE (MG/DL) IN URINE Normal Normal Normal (<70 ) [facility] Comment on above: Performed By: #### L [id number] ####Rope Twisting Machine Operator: ISABEL YSUUF ([id number])[facility] ([facility])[address] [place] [address]#### [id number] ####Rope Twisting Machine Operator: ISABEL YUSUF ([id number])[facility] ([facility])[address] [place] [address] HEMOGLOBIN PRESENCE IN URINE Negative Normal Negative [facility] Comment on above: Performed By: #### L [id number] ####Rope Twisting Machine Operator: ISABEL YUSUF ([id number])[facility] ([facility])[address] [place] [address]#### [id number] ####Rope Twisting Machine Operator: ISABEL YUSUF ([id number])[facility] ([facility])[address] [place] [address] Ketones Ql (U) Negative Normal Negative [facility] Comment on above: Performed By: #### L [id number] ####Rope Twisting Machine Operator: ISABEL YUSUF ([id number])[facility] ([facility])[address] [place] [address] [place]#### [id number] ####Rope Twisting Machine Operator: ISABEL YUSUF ([id number])[facility] ([facility])[address] [place] [address] LEUKOCYTE ESTERASE PRESENCE IN URINE BY TEST STRIP 500 Herrera/uL Abnormal Negative [facility] Comment on above: Performed By: #### L [id number] ####Rope Twisting Machine Operator: ISABEL YUSUF ([id number])[facility] ([facility])[address] [place] [address] [place]#### [id number] ####Rope Twisting Machine Operator: ISABEL YUSUF ([id number])[facility] ([facility] [place] [address] NITRITE PRESENCE IN URINE Negative Normal Negative [facility] Comment on above: Performed By: #### L [id number] ####Rope Twisting Machine Operator: ISABEL YUSUF ([id number])[facility] ([facility])[address] [place] [address]#### [id number] ####Rope Twisting Machine Operator: ISABEL YUSUF ([id number])[facility] ([facility] [place] [address] pH (U) 6.0 [pH] Normal 5.0-8.0 [facility] Comment on above: Performed By: #### L [id number] ####Rope Twisting Machine Operator: ISABEL YUSUF ([id number])[facility] ([facility])[address] [place] [address] [place]#### [id number] ####Rope Twisting Machine Operator: ISABEL YUSUF ([id number])[facility] ([facility] [place] [address] Protein (U) [Mass/Vol] 20 mg/dL Abnormal Negative [facility] Comment on above: Performed By: #### L [id number] ####Rope Twisting Machine Operator: ISABLE YUSUF ([id number])[facility] ([facility])[address] [place] [address] [place]#### [id number] ####Rope Twisting Machine Operator: ISABEL YUSUF ([id number])[facility] ([facility])[address] [place] [address] RBC (#/HPF) IN URINE SEDIMENT 3-5 Abnormal 0-2 [facility] Comment on above: Performed By: #### L [id number] ####Rope Twisting Machine Operator: ISABEL YUSUF ([id number])[facility] ([facility])[address] [place] [address]#### [id number] ####Rope Twisting Machine Operator: ISABEL YUSUF ([id number])[facility] ([facility])[address] [place] [address] Specific gravity (U) [Rel density] 1.019 Normal 1.005-1.030 [facility] Comment on above: Result Comment: IRENA Chairez COMMENTS: A specimen with <=10 WBC is not consistent with inflammation. This specimen will not reflex to a urine culture. This specimen has been reflexed to urine culture. Performed By: #### L [id number] ####Rope Twisting Machine Operator: ISABEL YUSUF ([id number])[facility] DIEUDONNEDEBORAH [facility] ([facility])[address] [place] [address]#### [id number] ####Rope Twisting Machine Operator: ISABEL YUSUF ([id number])[facility] ([facility])[address] [place] [address] SQUAMOUS EPITHELIAL CELLS (#/HPF) IN URINE SEDIMENT 11-25 Abnormal 3-5 [facility] Comment on above: Performed By: #### L [id number] ####Rope Twisting Machine Operator: ISABEL YUSUF ([id number])[facility] DIE[facility]NE JUAN DAVIDDENISE (SW[facility])[address] [place] [address]#### [id number] ####Rope Twisting Machine Operator: ISABEL YUSUF ([id number])[facility] [place] [address] UROBILINOGEN (MG/DL) IN URINE Normal Normal Normal (0-1) [facility] Comment on above: Performed By: #### L [id number] ####Rope Twisting Machine Operator: ISABEL YUSUF ([id number])[facility] ([facility])[address] [place] [address] [place]#### [id number] ####Rope Twisting Machine Operator: ISABEL YUSUF ([id number])[facility] ([facility])[address] [place] [address] VOLUME OF URINE 8-12 mL Normal [facility] Comment on above: Performed By: #### L [id number] ####Rope Twisting Machine Operator: ISABEL YUSUF ([id number])[facility] (SWRL[facility])[address] [place] [address]#### [id number] ####Rope Twisting Machine Operator: ISABEL YUSUF ([id number])[facility] ([facility])[address] [place] [address] WBC (LEUKOCYTE) (#/HPF) IN URINE SEDIMENT 11-25 Abnormal 0-5 [facility] Comment on above: Performed By: #### L [id number] ####Rope Twisting Machine Operator: ISABEL YUSUF ([id number])[facility] ([facility])[address] [place] [address]#### [id number] ####Rope Twisting Machine Operator: ISABEL YUSUF ([id number])[facility] ([facility])[address] [place] [address] ED Nursing Noteon 09-04-2024 ED Nursing Note Patient and significant other exited [facility] ED for an ED to ED transfer to [facility] so that patient can get the ordered ultrasound. Patient IV in place upon leaving [facility] as per provider permission. Patient verbalized understanding of instructions and departed without incident. Normal [facility] ED Nursing Note Report called to Charge nurse Yin RN for ED to ED transfer. Pt traveling by private car. Normal [facility] ED Nursing Note heart tones assessed 153 bpm. Normal [facility] ED Nursing Note Pt ambulatory to room 6 with c/o left sided abdominal pain since last night. Pt describes pain as intermittent pain with no modifying factors. Pt reports she is 16 weeks with LMP 05/06/2024. No change in movement. Pt denies any vaginal bleeding or discharge. Pt reports having concerns of yeast infection. Pt denies any dysuria. Pt reports having diarrhea. Normal [facility] ED Provider Noteon ED Provider Note EMERGENCY DEPARTMENT ENCOUNTER Pt Name: Sumit Green Birthdate 2005 Date of evaluation: 09/04/2024 ED Provider: Sanchez Dickey MD CHIEF COMPLAINT Chief Complaint Patient presents with Abdominal Pain HISTORY OF PRESENT ILLNESS (Location/Symptom, Timing/Onset, Context/Setting, Quality, Duration, Modifying Factors, Severity) Note limiting factors. I wore appropriate PPE for the entirety of this encounter. HPI Sumit Green is a 18 y.o. adult who presents to the emergency department with chief complaint of abdominal pain that has been ongoing for 1 month, worsened within the last 24 hours. Patient reports some nausea without emesis and denies diarrhea, recent fevers, chills, chest pain, shortness of breath. Patient denies vaginal spotting, bleeding or hematuria but does report dysuria when urinating. She also describes foul-smelling vaginal discharge that has been ongoing since the start of her . Patient has been following with her [employer] appointments. Patient was seen at [facility] ED and transferred to [facility] to obtain retroperitoneum ultrasound since [facility] does not have those capabilities with concern for kidney stone. Nursing Notes were reviewed. Limitations to history: None Outside historians: None REVIEW OF SYSTEMS Review of Systems Pertinent positives and negatives as per HPI. PAST MEDICAL HISTORY Medical History[1] SURGICAL HISTORY Surgical History[2] CURRENT MEDICATIONS Discharge Medication List as of 09/05/2024 4:23 AM CONTINUE these medications which have NOT CHANGED Details albuterol 108 (90 Base) MCG/ACT inhaler Inhale 2 puffs every 4 hours as needed for wheezing., Starting 05/27/2024, Until 06/26/2024 at 2359, Normal doxylamine (Unisom) 25 MG tablet Take 1 tablet (25 mg) by mouth Nightly as needed for sleep., Starting 08/10/2024, Until 12/08/2024 at 2359, Normal ferrous sulfate 325 (65 Fe) MG tablet Take 325 mg by mouth daily (with breakfast)., Historical Med nicotine (Nicoderm, Step 3) 7 MG/24HR patch Place 1 patch on the skin Every 24 hours., Starting 06/29/2024, Until 10/27/2024, Normal 27-1 MG tablet Take 1 tablet by mouth daily., Starting 06/16/2024, Normal pyridoxine (Vitamin B-6) 25 MG tablet Take 1 tablet (25 mg) by mouth every 8 hours., Starting 06/29/2024, Until Chastity 09/27/2024, Normal ALLERGIES Patient has no known allergies. FAMILY HISTORY Family History[3] SOCIAL HISTORY Social History[4] SCREENINGS El Coma Scale Best Eye Response: Spontaneous Best Verbal Response: Oriented Best Motor Response: Follows commands El Coma Scale Score: 15 PHYSICAL EXAM ED Triage Vitals Temp Heart Rate Resp BP 09/04/24 1332 09/04/24 1332 09/04/24 1332 09/04/24 1332 36.4 ?C (97.6 ?F) 78 16 102/64 SpO2 Temp Source Heart Rate Source Patient Position 09/04/24 1332 09/04/24 1332 09/04/24 2138 09/04/24 1332 100 % Oral Monitor Lying BP Location FiO2 (%) 09/04/24 1332 -- Right arm Physical Exam Constitutional: General: She is not in acute distress. Appearance: She is well-developed and normal weight. She is not ill-appearing. HENT: Head: Normocephalic and atraumatic. Mouth/Throat: Mouth: Mucous membranes are moist. Pharynx: Oropharynx is clear. Cardiovascular: Rate and Rhythm: Normal rate and regular rhythm. Pulmonary: Effort: Pulmonary effort is normal. No respiratory distress. Breath sounds: No wheezing, rhonchi or rales. Abdominal: General: Abdomen is flat. There is no distension. Palpations: Abdomen is soft. Tenderness: There is right CVA tenderness. There is no left CVA tenderness, guarding or rebound. Comments: Mild diffuse tenderness to palpation Skin: General: Skin is warm and dry. Neurological: Mental Status: She is alert and oriented to person, place, and time. DIAGNOSTIC RESULTS RADIOLOGY (Per Emergency Physician): Interpretation per the Radiologist below, if available at the time of this note: US retroperitoneum Final Result 1. Nonobstructing left lower pole renal calculus measuring 0.5 cm. 2. No hydronephrosis. Report Dictated on Electronically Signed By: Dru Caban MD Electronically Signed Date/Time: 09/05/2024 1:30 AM EDT ED BEDSIDE ULTRASOUND: Performed by ED Physician - none LABS: Labs Reviewed VAGINITIS PANEL MVP PCR - Abnormal Result Value Bacterial Vaginosis Detected (*) Nicki spp Detected (*) Nicki glabrata/krusei Not Detected Trichomonas Vaginalis Not Detected Narrative: Methodology: real-time PCR A negative result does not preclude a possible infection. This assay can detect the Nicki species C. albicans, C. tropicalis, C. parapsilosis, and C. dubliniensis but does not differentiate among them. The assay also detects C. glabrata and C. krusei, but does not differentiate between them. Results should be interpreted (more content not included)... Normal [facility] ED Provider Note EMERGENCY DEPARTMENT ENCOUNTER Pt Name: Sumit Green Birthdate 2005 Date of evaluation: 09/04/2024 CHIEF COMPLAINT Chief Complaint Patient presents with ? Abdominal Pain HISTORY OF PRESENT ILLNESS HPI Sumit Green is a 18 y.o. female who presents to the emergency department with abdominal pain mainly on the left side, started less than 16 hours ago, it is improving. He has associated nausea. No vomiting some diarrhea no difficulty urinating no fever. No alcohol use recently. Pain is intermittent now. Nature was lasting for approximately 15 minutes now. Boyfriend reports she needs a work note. Patient's last menstrual period was 05/09/2024. REVIEW OF SYSTEMS Review of Systems Problem List[1] CURRENT MEDICATIONS Previous Medications ALBUTEROL 108 (90 BASE) MCG/ACT INHALER Inhale 2 puffs every 4 hours as needed for wheezing. DOXYLAMINE (UNISOM) 25 MG TABLET Take 1 tablet (25 mg) by mouth Nightly as needed for sleep. FERROUS SULFATE 325 (65 FE) MG TABLET Take 325 mg by mouth daily (with breakfast). NICOTINE (NICODERM, STEP 3) 7 MG/24HR PATCH Place 1 patch on the skin Every 24 hours. 27-1 MG TABLET Take 1 tablet by mouth daily. PYRIDOXINE (VITAMIN B-6) 25 MG TABLET Take 1 tablet (25 mg) by mouth every 8 hours. ALLERGIES Patient has no known allergies. SOCIAL HISTORY Social History[2] PHYSICAL EXAM Vitals: 09/04/24 1332 BP: 102/64 BP Location: Right arm Patient Position: Lying Pulse: 78 Resp: 16 Temp: 36.4 ?C (97.6 ?F) TempSrc: Oral SpO2: 100% Physical Exam Vitals and nursing note reviewed. Constitutional: Appearance: She is not toxic-appearing. Abdominal: General: Bowel sounds are normal. Palpations: Abdomen is soft. Tenderness: There is abdominal tenderness. There is left CVA tenderness. There is no guarding. Negative signs include Morgan's sign. Hernia: No hernia is present. Skin: General: Skin is warm. Coloration: Skin is not jaundiced. Neurological: Mental Status: She is alert. Psychiatric: Behavior: Behavior normal. SCREENINGS El Coma Scale Best Eye Response: Spontaneous Best Verbal Response: Oriented Best Motor Response: Follows commands El Coma Scale Score: 15 Medical decision making DIAGNOSTIC RESULTS Procedures/EKG: Physician EKG interpretation can be found in [facility] if done Radiologist results reviewed: No orders to display LABS: Labs Reviewed COMPLETE URINALYSIS WITH REFLEX TO CULTURE - Abnormal Result Value Color, Urine Yellow Clarity, Urine Extra Turbid (*) pH, Urine 6.0 Leukocytes, Urine 500 (*) Nitrite, Urine Negative Protein, Urine 20 (*) Glucose, Urine Normal Bilirubin, Urine Negative Ketones, Urine Negative Urobilinogen, Urine Normal Blood, Urine Negative Volume, Urine 8-12 mL RBC, Urine 3-5 (*) WBC, Urine 11-25 (*) Squamous Epithelial, Urine 11-25 (*) Bacteria, Urine Many (*) Calcium Oxalate Crystals, Urine Few (*) SPECIFIC GRAVITY OF URINE (NUMERIC) 1.019 Narrative: A specimen with <=10 WBC is not consistent with inflammation. This specimen will not reflex to a urine culture. This specimen has been reflexed to urine culture. URINE CULTURE RADIOLOGY : Medications ordered: Medications acetaminophen (Tylenol) tablet 650 mg (650 mg Oral Not Given 09/04/24 1358) cephalexin (Keflex) capsule 500 mg (has no administration in time range) ED Course as of 09/05/24 0314 Tue September 04, 2024 1341 US OB less than 14 weeks early (06/29/24 1232) Prior medical records were reviewed: Ordered by [employer]EE CONSULTANT IUP [NM] 1342 Urine culture (08/11/24 1125) Prior medical records were reviewed: normal [NM] 1342 Chlamydia/Gonorrhea (06/29/24 1721) Prior medical records were reviewed:ordered by ob, normal [NM] 1342 Trichomonas vaginalis PCR (06/29/24 1656) Prior medical records were reviewed: ordered by ob normal [NM] ED Course User Index [NM] Ovi Delacruz MD Diagnoses as of 09/05/24 0314 Acute cystitis with hematuria Calcium oxalate calculus Bacterial vaginosis Nicki vaginitis * No order type specified * Our workup consisted of ordering/reviewing: Orders Placed This Encounter Procedures ? Urine culture ? Urinalysis complete with reflex to Culture ? Assess heart tones MDM: 18 y.o. presented with abdominal pain. The differential diagnosis considered: UTI, kidney stone, round ligament pain, gastric intestinal virus infection,. Given hematuria and calcium stones in the urine patient needs ultrasound. Cannot have CT secondary to . Diagnostic tests considered but not performed: Ultrasound retroperitoneum. Not available at this facility. REVAL: CRITICAL CARE TIME PROCEDURES: Procedures FINAL IMPRESSION 1. Acute cystitis with hematuria 2. Calcium oxalate calculus DISPOSITION/PLAN DISPOSITION Transfer To [facility] Ed 09/04/2024 06:41:20 PM To [facility] emergency department for renal r (more content not included)... Normal [facility] TRICHOMONAS VAGINALIS PCRon 09-04-2024 TRICHOMONAS VAGINALIS PCR TRICHOMONAS VAGINALIS PCR Reference Not Detected Not Detected ORDER COMMENTS: Methodology: real-time PCR A negative result does not completely rule out infection with T. vaginalis. Results should be interpreted in conjunction with other clinical data. This test has not been validated for use with self-collected vaginal swab specimens from patients. This test is intended for medical purposes only and is not intended for the evaluation of suspected sexual abuse or for other forensic purposes. Normal [facility] Comment on above: Performed By: #### L [id number] #### Rope Twisting Machine Operator: ISAEBL YUSUF ([id number]) [facility] ([facility]) [address] [place] [address] URINE CULTUREon 09-04-2024 Bacteria identified Cx Nom (U) URINE CULTURE Reference Normal urogenital maira present [ S = SUSCEPTIBLE R = RESISTANT I = INTERMEDIATE S-DD = Susceptible-dose dependent NS = Non-susceptible NO = No Interpretation ] Normal [facility] Comment on above: Performed By: #### L [id number] ####Rope Twisting Machine Operator: ISABEL YUSUF ([id number])[facility] (SWRL[facility])[address]#### [id number] ####Rope Twisting Machine Operator: ISABEL YUSUF ([id number])[facility] ([facility])[address] [place] [address] Retroperitoneumon 025 Radiology Study observation (narrative) [facility] Urinalysis complete panel (U )Ordered By: Aurea Crabtree on 09-04-2024 Bacteria LM.HPF (Urine sed) [#/Area] Many Abnormal Negative /HPF [facility] Bilirubin Ql (U) Negative Negative mg/dL [facility] Calcium oxalate crystals LM.HPF (Urine sed) [#/Area] Few Abnormal Negative /HPF [facility] Clarity (U) Extra Turbid Abnormal Clear [facility] h Color (U) Yellow Lt. Yellow [facility] Epithelial cells.squamous LM.HPF (Urine sed) [#/Area] 11-25 [facility] Glucose Ql (U) Normal Normal (<70) mg/dL [facility] Hemoglobin Ql (U) Negative Negative mg/dL [facility] Interpretation and review of laboratory results Abnormal [facility] Ketones (U) [Mass/Vol] Negative Negative mg/d L [facility] Leukocyte esterase Test strip Ql (U) 500 Abnormal Negative Herrera/uL [facility] Nitrite Ql (U) Negative Negative [facility] th pH (U) 6.0 [pH] 5.0 - 8.0 pH [facility] Protein (U) [Mass/Vol] 20 mg/dL Abnormal Negative [facility] RBC LM.HPF (Urine sed) [#/Area] 3-5 Abnormal [facility] Specific gravity (U) [Rel density] 1.019 1.005 - 1.030 [facility] Urobilinogen (U) [Mass/Vol] Normal Normal (0-1) mg/dL [facility] Volume, Urine 8-12 mL [facility] WBC LM.HPF (Urine sed) [#/Area] 11-25 Abnormal [facility] A specimen with <=10 WBC is not consistent with inflammation. This specimen will not reflex to a urine culture. This specimen has been reflexed to urine culture. [facility] VAGINITIS PANEL MVP PCRon VAGINITIS PANEL MVP PCR BACTERIAL VAGINO SIS MVP PCR (A) Reference Detected Not Detected NICKI SPP MVP PCR (A) Reference Detected Not Detected NICKI GLABRATA/KRUSEI MVP PCR Reference Not Detected Not Detected TRICHOMONAS VAGINALIS MVP PCR Reference Not Detected Not Detected ORDER COMMENTS: Methodology: real-time PCR A negative result does not preclude a possible infection. This assay can detect the Nicki species C. albicans, C. tropicalis, C. parapsilosis, and C. dubliniensis but does not differentiate among them. The assay also detects C. glabrata and C. krusei, but does not differentiate between them. Results should be interpreted in conjunction with other clinical data. This test has not been validated for use with specimens collected by patients at home. This test is intended for medical purposes only and is not valid for the evaluation of suspected sexual abuse or for other forensic purposes. Normal [facility] Comment on above: Performed By: #### L [id number] #### Rope Twisting Machine Operator: ISABEL YUSUF ([id number]) [facility] ([facility]) [address] [place] [address] 37on 08-10-2024 37 Your Second Trimester: Care Instructions What you can expect During this time, you may start to show, so that you look to people around you. You will also start to feel baby move. At first, these small movements feel like fluttering or butterflies. Some women say that they feel like gas bubbles. As your baby grows, these movements will become stronger. You may also notice that your baby hiccups. Babies at this stage can now suck their thumbs. You may find that your nausea and fatigue are gone. You may feel better overall and have more energy than you did in your first trimester. But you might now also have some new discomforts, like sleep problems or leg cramps. Talk to your doctor about things you can do at home to ease these problems. Proper Weight Gain in Experts recommend that you gain about 1 pound a month during the first 3 months of your . Experts recommend that you gain about 1 pound a week during your last 6 months of , for a total weight gain of 25 to 35 pounds. If you are underweight, you will need to gain more weight (about 28 to 40 pounds). If you are overweight, you may not need to gain as much weight (about 15 to 25 pounds). If you are gaining weight too fast, use common sense. Exercise every day, and limit sweets, fast foods, and fats. Choose lean meats, fruits, and vegetables. Follow-up care is a bustamante part of your treatment and safety. Be sure to make and go to all appointments, and call your doctor if you are having problems. It's also a good idea to know your test results and keep a list of the medicines you take. You can expect an anatomy ultrasound at 18-20 weeks. If your is uncomplicated, this may be the only ultrasound you need Most women are tested for gestational diabetes between weeks 24 and 28. Gestational diabetes occurs when your blood sugar level gets too high when you're . The test is important, because you can have gestational diabetes and not know it. But the condition can cause problems for your baby. Talk to your doctor about getting a flu shot to help keep you healthy during your . When to call your doctor Call 911 anytime you think you may need emergency care. For example, call if: You have severe vaginal bleeding. You have sudden, severe pain in your belly. You passed out (lost consciousness). You have a seizure. You see or feel the umbilical cord. You think you are about to deliver your baby and can't make it safely to the hospital. Call your doctor now or seek immediate medical care if: You have vaginal bleeding. You have belly pain. You have a fever. You have symptoms of preeclampsia, such as: Sudden swelling of your face, hands, or feet. New vision problems (such as dimness, blurring, or seeing spots). A severe headache. You have a sudden release of fluid from your vagina. (You think your water broke.) You think that you may be in labor. This means that you've had at least 6 contractions in an hour. You notice that your baby has stopped moving or is moving much less than normal. You have symptoms of a urinary tract infection. These may include: Pain or burning when you urinate. A frequent need to urinate without being able to pass much urine. Pain in the flank, which is just below the rib cage and above the waist on either side of the back. Blood in your urine. Normal [facility] Progress Noteon 08-10-2024 Progress Note Hgb 11.0 on NOB labs, plan to repeat around 24 weeks. Normal [facility] Progress Note Patient doing well, having some mild nausea but does not want any stronger medications. She had a dating US but has not gotten NT, will not be able to get her in by 14 weeks. Anatomy scan ordered and message sent to scheduler maintenance. Having a boy. Complaining of dysuria today, she had a E coli UTI in May which was treated with Macrobid. Urine culture sent today. Would like work restrictions as she works at [employer]. Letter in chart. Normal [facility] Progress Note ---- Attestation signed by Ryan Ferrara MD at 08/10/2024 3:44 PM [facility]: This patient [facility] by the resident. I reviewed and agree with the care provided by the resident during or immediately following the visit including the patient's medical history, the resident's finding in the physical exam, patient's diagnosis and treatment plan. Sumit Green was seen in the Obstetrics ED. Please see chart note for details. ---- Assessment and Plan: , supervision of first Patient doing well, having some mild nausea but does not want any stronger medications. She had a dating US but has not gotten NT, will not be able to get her in by 14 weeks. Anatomy scan ordered and message sent to scheduler maintenance. Having a boy. Complaining of dysuria today, she had a E coli UTI in May which was treated with Macrobid. Urine culture sent today. Would like work restrictions as she works at [employer]. Letter in chart. Iron deficiency anemia Hgb 11.0 on NOB labs, plan to repeat around 24 weeks. Chief Complaint Patient presents with Routine Visit 13 weeks, 2 days. No c/o. 18 y.o. yo at 13w2d Here today for MOHIT No acute complaints. Having some mild cramping but not consistent. Denies LOF/VB ROS: No pelvic pain + dysuria PE: Vitals: 08/10/24 1243 BP: 93/64 Pulse: 103 Body mass index is 18.47 kg/m?. PE: Gen: NAD, A&Ox3 HEENT: NC/AT, EOMI Abd: nontender, uterus palpable on exam Skin: warm/dry BLE: without edema, nontender ASA Indications High Risk Indication for Daily ASA: none Two Moderate Risk Indication for Daily ASA: None ASA prescribed: No, Not Indicated Follow up in about 4 weeks (around 09/07/2024) for MOHIT. Normal [facility] URINE CULTUREon 08-10-2024 Bacteria identified Cx Nom (U) URINE CULTURE Reference Normal urogenital maira present [ S = SUSCEPTIBLE R = RESISTANT I = INTERMEDIATE S-DD = Susceptible-dose dependent NS = Non-susceptible NO = No Interpretation ] Normal [facility] Comment on above: Performed By: #### L [id number] #### Rope Twisting Machine Operator: ISABEL YUSUF ([id number]) [facility] ([facility] [address] [place] [address] [id number] 08-07-2024 [id number] Letter sent 08/06 Normal [facility] ECG 12-LEADon 08-07-2024 ECG 12-LEAD IMPRESSION: Sinus rhythm Nonspecific T abnormalities, anterior leads Electronically Signed On 08-07-2024 17:57:20 EDT by Dennis Herman Normal [facility] Laboratory - Chemistry and C hemistry - challengeon 08-06-2024 Glucose [Mass/Vol] 79 mg/dL 70 - 100 mg/dL [facility] No Panel Informationon 08-06 Interpretation and review of laboratory results Normal [facility] Performed by: [facility], [address] [place] [address] CLIA ID: [id number] [facility] Nursing Noteon 08-06-2024 Nursing Note Patient educated on return precautions and discharged home at this time. Pt denies questions Normal [facility] Progress Noteon 08-06-2024 Progress Note ---- Attestation signed by Marian Coughlin DO at 08/06/2024 5:34 PM Hospital Care (Independent): I independently saw and evaluated the patient. I agree with the findings and plan of care as documented in the resident's note. Sumit Green was seen in the Obstetrics ED. Please see chart note for details. Follow up in the next 2-3 days. ---- Department of Obstetrics and Gynecology Labor and Delivery Triage Note CHIEF CONCERN: Syncope HISTORY OF PRESENT ILLNESS: The patient is a 18 y.o. at 12w5d who presents with the above chief concern. Reports she has been noting that when she is standing for long periods of time she will feel faint and almost collapse. States she sits down prior to fully losing consciousness. Cannot quantify how much time it takes prior to her feeling faint. Denies full episode of syncope, denies head trauma, denies seizure like activity. Denies VB and cramping. 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 Estimated Due Date: Estimated Date of Delivery: 02/13/25 CARE: Complicated by: anemia DETAILED OB HISTORY: OB History 1 Para 0 Term AB Living SAB IAB Ectopic Multiple Live Births Obstetric Comments Plans to breastfeed OB History Para Term AB Living 1 0 SAB IAB Ectopic Multiple Live Births # Outcome Date GA Lbr Morales/2nd Weight Sex Type Anes PTL Lv 1 Current Obstetric Comments Plans to breastfeed PAST MEDICAL HISTORY: History reviewed. No pertinent past medical history. PAST SURGICAL HISTORY: History reviewed. No pertinent surgical history. MEDICATIONS: Prior to Admission medications Medication Sig Start Date End Date Taking? Authorizing Provider albuterol 108 (90 Base) MCG/ACT inhaler Inhale 2 puffs every 4 hours as needed for wheezing. Patient not taking: Reported on 07/19/2024 05/27/24 06/26/24 Mikal Woodson MD doxylamine (Unisom) 25 MG tablet Take 1 tablet (25 mg) by mouth Nightly as needed for sleep. 06/29/24 07/29/24 Gloria Ohara MD ferrous sulfate 325 (65 Fe) MG tablet Take 325 mg by mouth daily (with breakfast). Historical Provider, nicotine (Nicoderm, Step 3) 7 MG/24HR patch Place 1 patch on the skin Every 24 hours. 06/29/24 10/27/24 Gloria Ohara MD 27-1 MG tablet Take 1 tablet by mouth daily. 06/16/24 Katia Gee Vo, DO pyridoxine (Vitamin B-6) 25 MG tablet Take 1 tablet (25 mg) by mouth every 8 hours. 06/29/24 09/27/24 Gloria Ohara MD REVIEW OF SYSTEMS: Pertinent items are noted in HPI. APPEARANCE: Pain: No PHYSICAL EXAM: Vital Signs: VS wnl-reviewed/Respir ations normal effort Vitals: 08/06/24 1229 BP: (!) 90/51 Pulse: 82 Resp: 18 Temp: 36.7 ?C (98.1 ?F) TempSrc: Oral General: NAD, resting comfortably Lungs : Normal WOB on RA Abdomen: soft, NT, ND, no rebound/guarding Uterus: gravid/non-tender Speculum Exam: defer LE Edema: trace RESULTS: heart rate: 150s bpm on BSUS GENERAL LABS: No results found for this or any previous visit (from the past 24 hours). TRIAGE COURSE: Pt presented with above. BP NT, slightly low. Urine ketones, POCT G, EKG, orthostatic vitals ordered and pending. Orthostatic BPs normal. Ketones negative. EKG sinus rhythm. BGT 79. Reviewed hydration in , compression stockings, frequent breaks at work, etc. Patient's next OB appointment scheduled for 08/10/24. Will discharge home at this time with return precautions. ESSION: Dizziness Pain assessment and plan: None Patient seen and evaluated and plan discussed with in house Triage Attending Dr. Coughlin SUGAR GRINDER PROVIDER: Dr. Machuca DISPOSITION: Discharge to Home [facility] Progress Noteon 07-19-2024 Progress Note Temp- 97.6 Patient here for OB intake. She arrived with FOB and her friend. This will be her first baby. She is possibly transferring to [facility], but is unsure. She declines wanting to sign ROR at this time. Patient plans to breastfeed. Benefits of and baby friendly reviewed. Folder reviewed with patient and all relevant teaching completed. Proof of printed and instructions given to sign up for [place]. She is aware where the WIC office is in her county. TDAP and Flu vaccination encouraged. Patient is active with [employer]. Informed patient on appropriate use of mychart and to not use for medical emergency questions. Informed patient when to seek emergent care and location of OB triage. Transportation is not an issue getting to appointments. Informed patientof provide a ride services through their insurance company. Patient desires genetic and gender testing. Virtual maternity tour completed and hospital information handout given. Future visit appointment scheduled. All questions answered. Informed pt of [facility] Attendant (C), STEVAN Sandoval LISW at [facility], but she declines at this time. [facility] 37on 07-17-2024 37 Your First Trimester: Care Instructions During the first trimester of (12 weeks), your body goes through many changes. Your baby grows very quickly, even though you can't feel it yet. You may start to feel different, both in your body and your emotions. Because each is unique, there's no right way to feel. You may feel the healthiest you've ever been, or you might feel tired or sick to your stomach (morning sickness). Follow-up care is a bustamante part of your treatment and safety. Be sure to make and go to all appointments, and call your doctor if you are having problems. It's also a good idea to know your test results and keep a list of the medicines you take. What You Can Expect Once you have a positive , you should come to the office for confirmation of , and you will get an ultrasound to confirm when your estimated due date is. Many labs are drawn, and an exam is performed. These include: A pap smear, which is a screening for cervical cancer Screening for sexually transmitted diseases, such as HIV, syphillis, hepatis, chlamydia and gonorrhea. Although you might be low risk, these are very improtant Blood tests to test for anemia, or blood clotting issues Screening for diabetes Genetic screening for defects Screening for diseases that could run in your family You may have a repeat ultrasound between 11 and 13 weeks called a Nuchal Translucency. This is a screening for defects in baby's back or skin, and to look at the baby's heart Generally, patients should have a visit every 4 weeks during this time Eat a Healthy Diet Take a Vitamin every day Avoid foods that could harm your baby. Do not eat raw or undercooked meat, chicken, or fish (such as sushi or raw oysters). Do not eat raw eggs or foods that contain raw eggs, such as Caesar dressing. Do not eat soft cheeses and unpasteurized dairy foods, such as Brie, feta, or blue cheese. Do not eat fish that contains a lot of mercury, such as shark, swordfish, tilefish, or wilfredo mackerel. Limit some other types of fish, such as white (albacore) tuna, to 4 oz (0.1 kg) a week. Do not eat raw sprouts, especially alfalfa sprouts. Cut down on caffeine, such as coffee, tea, and cola. Take care of yourself and your baby Avoid Drugs or alcohol during . There is no safe amount of alcohol during , at any gestational age Exercise is important during . At least 30 minutes of excersize is recommended daily, and can just be a brisk walk Do not touch renaldo litter or cat feces. They can cause an infection that could harm your baby. High body temperature can be harmful to your baby. So if you want to use a sauna or hot tub, be sure to talk to your doctor about how to use it safely. Smoking and those who smoke When you're , everything you put in your body can affect your baby. If you smoke, your baby is exposed to chemicals such as nicotine and carbon monoxide. Smoking during increases the chance of: Placenta problems. (The placenta is an organ that gives the baby oxygen and nutrients from the mother and gets rid of waste.) . The baby is born too soon. Miscarriage or stillbirth. defects, such as a cleft lip. early in life, mainly because of sudden syndrome (SIDS). A baby with a low weight. If you smoke, there are many ways to cut down or quit! Ask your doctor or mechanical maintenance foreman about ways to quit. Carver with morning sickness Sip small amounts of water, juices, or shakes. Try drinking between meals, not with meals. Eat 5 or 6 small meals a day. Try dry toast or crackers when you first get up, and eat breakfast a little later. Avoid spicy, greasy, and fatty foods. When having difficulty eating, try the BRAT Diet to make it easier to eat Bananas Rice Applesauce Experiment Try nausea wristbands. These help some women Try Kayli capsules 250 mg 4 times per day If you are unable to eat or drink anything for 24 hours, you should call your doctor When to call your doctor Call 911 anytime you think you may need emergency care. For example, call if: You passed out (lost consciousness). Call your doctor now or seek immediate medical care if: You have a fever unresolved after taking tylenol (Acetaminophen) at home You have vaginal bleeding. You are dizzy or lightheaded, or you feel like you may faint. You have symptoms of a urinary tract infection. These may include: Pain or burning when you urinate. A frequent need to urinate without being able to pass much urine. Pain in the flank, which is just below the rib cage and above the waist on either side of the back. Blood in your urine. You have persistent belly pain. You think you are having contractions. You have a sudden release of fluid from your vagina. Watch closely for changes in your health, and be rapp (more content not included)... Normal [facility] Progress Noteon 07-17-2024 Progress Note Patient doing well, denies OB sx Reviewed TVUS and NOB labs NIPT and Horizon ordered today Continue routine OB care Discussed return precautions Normal [facility] Progress Note ---- Attestation signed by Lynda Neal MD at 07/17/2024 3:29 PM [facility]: [facility] by the resident. I reviewed and agree with the care provided by the resident during or immediately following the visit including the patient's medical history, the resident's finding in the physical exam, patient's diagnosis and treatment plan. ---- Sumit Peter 07/17/2024 18 y.o. Chief Complaint Patient presents with Follow-up Patient's last menstrual period was 05/09/2024. Primary CarePhysician: Jeremy Nelson OB Visit Subjective: Gestational Age: Unknown Estimated Due Date: Estimated Date of Delivery: None noted. Chief Complaint Patient presents with Follow-up HPI: Sumit Angantoniettajanettaylor is a 18 y.o. female presents today for initial OB appointment at ~9w dated by LMP. Patient doing well without complaints. Nausea and vomiting in first trimester: positive. Patient currently taking vitamin or multivitamin with folic acid: yes. Denies cramping or vaginal bleeding. History of Previous : N/A History of 3rd/4th Degree Laceration: N/A Previous Garcia : N/A Genetic Carrier Screening in Prior : Yes Date of Last Pap Smear: N/A History of STIs: No Cats at Home: Yes. 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 Objective: There were no vitals filed for this visit. There is no height or weight on file to calculate BMI. Physical Exam: General: NAD, A&Ox3 HEENT: Normocephalic, atraumatic Abdomen: Nontender, uterus palpable on exam Skin: Warm/dry LE: No edema bilaterally, no calf tenderness or swelling SSE/SVE: Deferred Assessment/Plan: , supervision of first Patient doing well, denies OB sx Reviewed TVUS and NOB labs NIPT and Horizon ordered today Continue routine OB care Discussed return precautions Vaping nicotine dependence, tobacco product Continue use of nicotine patches Counseling provided and cessation encouraged Follow up in about 4 weeks (around 08/14/2024) for Kaitlin Attila, 07/17/2024, 9:10 AM [facility] Progress Note Vital signs BP 113/73 Weight 117lb Pulse 87 Temp 113/73 Normal [facility] Progress Note Pt had Joselyn drawn from the right arm. Pt tolerated well. Normal [facility] 37on 06-29-2024 37 Medications safe to take during Type of Remedy: Allergy Diphenhydramine (Benadryl?) Loratidine (Claritin?) Cetirizine (Zyrtec?) Type of Remedy: Cold and Flu Diphenhydramine (Benadryl)* Dextromethorphan (Robitussin?)* Guaifenesin (Mucinex? [plain]) * Vicks Vapor Rub? mentholated cream Mentholated or non-mentholated cough drops (Sugar-free cough drops for gestational diabetes should not contain blends of herbs or aspartame) Pseudoephedrine ([Sudafed?] after 1st trimester) Acetaminophen (Tylenol?)* Saline nasal drops or spray Warm salt/water gargle *Note: Do not take the SA (Sustained Action) form of these drugs or the Multi-Symptom form of these drugs. Do not use Nyquil? due to its high alcohol content. Type of Remedy: Diarrhea Loperamide ([Imodium?] after 1st trimester, for 24 hours only) Type of Remedy: Constipation Methylcellulose fiber (Citrucel?) Docusate (Colace?) psyllium (Fiberall?, Metamucil?) polycarbophil (FiberCon?) polyethylene glycol (MiraLAX?)* *Occasional use only Type of Remedy: Headache Acetaminophen (Tylenol) Type of Remedy: Heartburn/Nausea Aluminum hydroxide/magnesium carbonate (Gaviscon?)* Famotidine (Pepcid AC?) Aluminum hydroxide/magnesium hydroxide (Maalox?) Calcium carbonate/magnesium carbonate (Mylanta?) Calcium carbonate (Titralac?, Tums?) Ranitidine (Zantac?) Zofran (ondansetron) Compazine Reglan Benadryl *Occasional use only Type of Remedy: Hemorrhoids Phenylephrine/rating examiner al oil/petrolatum (Preparation H?) Witch sumaya (Tucks? pads or ointment) Type of Remedy: Sleep Diphenhydramine (Unisom SleepGels?, Benadryl) *Please note: No drug can be considered 100% safe to use during . Normal [facility] ABO RH BLOOD TYPEon 06-30-19 25 ABO GROUPING O Normal [facility] Comment on above: Performed By: #### L [id number] #### Rope Twisting Machine Operator: ISABEL YUSUF ([id number]) [facility] [address] [place] [address] RH TYPE IN BLOOD Positive Normal [facility] Comment on above: Performed By: #### L [id number] #### Rope Twisting Machine Operator: ISABEL YUSUF ([id number]) [facility] [address] [place] [address] ABO and Rh group panel (Bld) on 06-29-2024 ABO group Nom (Bld) O [facility] D Ag [facility]l [facility]RBC) [facility] Antibody screenon 06-29-2024 Blood group antibody screen GEL Ql Negative [facility] Blood group antibody screen GEL Qlon 06-29-2024 [facility] CBC (HEMOGRAM)on 06-29-2024 Erythrocyte distribution width (RBC) [Ratio] 15.5 % High 11.5-15.0 [facility] Comment on above: Performed By: #### L [id number] ####Rope Twisting Machine Operator: ISABEL YUSUF ([id number])[facility])[address] [place] [address] Hematocrit (Bld) [Volume fraction] 32.6 % Low 35.0-47.0 [facility] Comment on above: Performed By: #### L [id number] ####Rope Twisting Machine Operator: ISABEL YUSUF ([id number])[facility])[address] [place] [address] MCH (RBC) [Entitic mass] 26.5 pg Normal 26.0-34.0 [facility] Comment on above: Performed By: #### L [id number] ####Rope Twisting Machine Operator: ISABEL YUSUF ([id number])[facility])[address] [place] [address] MCHC 33.7 % Normal 30.5-36.0 [facility] Comment on above: Performed By: #### L [id number] ####Rope Twisting Machine Operator: ISABEL YUSUF ([id number])[facility])[address] [place] [address] MCV (RBC) [Entitic vol] 78.6 fL Normal 77.0-99.0 [facility] Comment on above: Performed By: #### L [id number] ####Rope Twisting Machine Operator: ISABEL YUSUF ([id number])[facility])[address] [place] [address] Platelet mean volume (Bld) [Entitic vol] 8.9 fL Low 9.0-12.7 [facility] Comment on above: Performed By: #### L [id number] ####Rope Twisting Machine Operator: ISABEL YUSUF ([id number])[facility])[address] [place] [address] Platelets (Bld) [#/Vol] 280 10*3/uL Normal 140-440 [facility] Comment on above: Performed By: #### L [id number] ####Rope Twisting Machine Operator: ISABEL YUSUF ([id number])[facility] ([facility])[address] [place] [address] RBC (Bld) [#/Vol] 4.15 10*6/uL Normal 3.80-5.20 [facility] Comment on above: Performed By: #### L [id number] ####Rope Twisting Machine Operator: ISABEL YUSUF ([id number])[facility] ([facility])[address] [place] [address] WBC (Bld) [#/Vol] 7.7 10*3/uL Normal 3.6-10.7 [facility] Comment on above: Performed By: #### L [id number] ####Rope Twisting Machine Operator: ISABEL YUSUF ([id number])[facility])[address] [place] [address] CBC panel Auto (Bld)on 06-29 Erythrocyte distribution width (RBC) [Ratio] 15.5 % High 11.5 - 15.0 % [facility] Hematocrit (Bld) [Volume fraction] 32.6 % Low 35.0 - 47.0 % [facility] Hemoglobin (Bld) [Mass/Vol] 11 g/dL Low 11.7 - 16.0 g/dL [facility] Interpretation and review of laboratory results Abnormal [facility] MCH (RBC) [Entitic mass] 26.5 pg 26.0 - 34.0 pg [facility] MCHC (RBC) [Mass/Vol] 33.7 % 30.5 - 36.0 % [facility] MCV (RBC) [Entitic vol] 78.6 fL 77.0 - 99.0 fL [facility] Platelet mean volume (Bld) [Entitic vol] 8.9 fL Low 9.0 - 12.7 fL [facility] Platelets (Bld) [#/Vol] 280 10*3/uL 140 - 440 10*3/uL [facility] RBC (Bld) [#/Vol] 4.15 10*6/uL 3.80 - 5.2 0 10*6/uL [facility] WBC (Bld) [#/Vol] 7.7 10*3/uL 3.6 - 10.7 10*3/uL [facility] CHLAMYDIA/GONORRHEAon 2024 CHLAMYDIA/GONORRHEA NEISSERIA GONORRHOEAE DNA PROBE Reference Not Detected Not Detected CHLAMYDIA TRACHOMATIS DNA PROBE Reference Not Detected Not Detected ORDER COMMENTS: Methodology: real-time PCR This test is intended for medical purposes only and is not intended for the evaluation of suspected sexual abuse or for other forensic purposes. In certain contexts, culture may be required to meet applicable laws and regulations for diagnosis of C. trachomatis and N. gonorrhoeae infections. Per 2014 CDC recommmendations, this test does not include confirmation of positive results by an alternative nucleic acid target. A negative result does not exclude the possibility of infection. A result of invalid indicates that a new specimen should be collected if clinically indicated. Normal [facility] Comment on above: Performed By: #### L [id number] #### Rope Twisting Machine Operator: ISABEL YUSUF ([id number]) [address] HEMOGLOBINOPATHY EVALon Erythrocyte distribution width (RBC) [Ratio] 15.8 % High 11.0-15.0 [facility] Comment on above: Performed By: #### L [id number] ####[facility] (AMDBEAKER)[address] [place] Hematocrit (Bld) [Volume fraction] 33.7 % Low 35.0-45.0 [facility] Comment on above: Performed By: #### L [id number] ####[facility] (AMDBEAKER)[address] [place] Hemoglobin (Bld) [Mass/Vol] 11.0 g/dL Low 11.7-16.0 [facility] Comment on above: Performed By: #### L [id number] ####[facility] ([place])[address] [place], [place] [facility] Performed By: #### L [id number] ####Rope Twisting Machine Operator: ISABEL YUSUF ([id number])[address] HEMOGLOBIN A 97.7 % Normal >96.0 [facility] Comment on above: Performed By: #### L [id number] ####[facility] (AMDBEAKER)[address] [place] [facility] HEMOGLOBIN A2 2.3 % Normal 2.0-3.2 [facility] Comment on above: Performed By: #### L [id number] ####[facility] (AMDBEAKER)[address] [place] [facility] HEMOGLOBIN C NO RESULT Normal [facility] Comment on above: Performed By: #### L [id number] ####[facility] (AMDBEAKER)[address] [place] [facility] HEMOGLOBIN E NO RESULT Normal [facility] Comment on above: Performed By: #### L [id number] ####[facility] (AMDBEAKER)[address] [place] [facility] HEMOGLOBIN F 0.0 % Normal <2.0 [facility] Comment on above: Performed By: #### L [id number] ####[facility] (AMDBEAKER)[address] [place] [facility] Hemoglobin S Ql (Bld) NO RESULT Normal [facility] Comment on above: Performed By: #### L [id number] ####[facility] (AMDBEAKER)[address] [place] [facility] INTERPRETATION SEE BELOW Normal [facility] Comment on above: Result Comment: NORMAL PATTERN LOW MCV/MCH, R/O IRON DEFICIENCY ANEMIA There is a normal pattern of hemoglobins and normal levels of Hb A2 and Hb F are present. No variant hemoglobins are observed. This is consistent with A/A phenotype. However, since the patient has anemia and low MCV/MCH, studies to exclude iron deficiency are recommended. If iron deficiency is excluded, the patient could have an alpha-thalassemic trait, or (less likely) beta-thalassemia trait. Rare variant hemoglobins have no separation from hemoglobin A by capillary zone electrophoresis (CZE) or high-performance liquid chromatography (HPLC). If clinically indicated, Thalassemia and Hemoglobinopathy Comprehensive ([place] [address]) should be considered. Test Performed by Christina Sood, [facility], [address] [place] [address] Simone Haywood M.D., Ph.D., Director of Laboratories , [facility] [id number] Performed By: #### L [id number] ####[facility] (AMDBEAKER)[address] [place] [address] [facility] MCH (RBC) [Entitic mass] 26.6 pg Low 27.0-33.0 [facility] Comment on above: Performed By: #### L [id number] ####[facility] ([facility]DB[facility])[address] [place] [address] [facility] MCV (RBC) [Entitic vol] 81.4 fL Normal 80.0-100.0 [facility] Comment on above: Performed By: #### L [id number] ####[facility] (AMDBEAKER)[address] [place] [address] [facility] OTHER HEMOGLOBIN 1 NO RESULT Normal [facility] Comment on above: Performed By: #### L [id number] ####[facility] (AMDBEAK[facility])[address] [place] [address] [facility] OTHER HEMOGLOBIN 2 NO RESULT Normal [facility] Comment on above: Performed By: #### L [id number] ####[facility] (AMDBEAK[facility])[address] [place] [address] [facility] RED BLOOD CELL COUNT - [facility] 4.14 Mill/uL Normal 3.80-5.10 [facility] Comment on above: Performed By: #### L [id number] ####[facility] ([facility]DBEAK[facility])[address] [place] [address] [facility] HEPATITIS B SURFACE ANTIGENo n 06-29-2024 HEPATITIS B VIRUS SURFACE AG Not detected Normal Not Detected [facility] Comment on above: Performed By: #### L [id number] #### Rope Twisting Machine Operator: ISABEL YUSUF ([id number]) [facility] ([facility]) [address] [place] [address] HEPATITIS C ANTIBODYon 06-29 HCV Ab IA Ql Not detected Normal Not Detected [facility] Comment on above: Result Comment: Jina ents with DETECTED Hepatitis C Ab results should have a new specimen submitted for supplemental testing with a Hepatitis C Quantitative RNA assay (viral load), if clinically indicated. Performed By: #### L [id number] #### Rope Twisting Machine Operator: ISABEL YUSUF ([id number]) [facility] ([facility]) [address] [place] [address] HIV-1 and HIV-2 Antigen-Anti body Screenon 06-29-2024 HIV 1+2 Ab+HIV1 p24 Ag IA Ql Non-Reactive Nonreactive [facility] Comment on above: The specimen was non -reactive for HIV-1 and HIV-2 antibodies and p24 antigen using an FDA-cleared 4th generation HIV test. Based on this non-reactive screen result, further reflexive testing was not indicated and was, therefore, not performed. HIV1,2 COMBO ANTIGEN-ANTIBOD Y SCREENon 06-29-2024 HIV 1,2 COMBO ANTIGEN/ANTIBODY Non-Reactive Normal Nonreactive [facility] Comment on above: Result Comment: The specimen was non-reactive for HIV-1 and HIV-2 antibodies and p24 antigen using an FDA-cleared 4th generation HIV test. Based on this non-reactive screen result, further reflexive testing was not indicated and was, therefore, not performed. Performed By: #### L [id number], [id number] ####Rope Twisting Machine Operator: ISABEL YUSUF ([id number])[facility] ([facility])[address] [place] [address] Hepatitis B surface antigeno n 06-29-2024 HBV surface Ag IA Ql Not detected Not Detected [facility] Hepatitis C antibodyon 06-29 HCV Ab IA Ql Not detected Not Detected [facility] Comment on above: Patients with DETECT ED Hepatitis C Ab results should have a new specimen submitted for supplemental testing with a Hepatitis C Quantitative RNA assay (viral load), if clinically indicated. N. gonorrhoeae DNA LATRICE+probe Ql (Cervical mucus)on 06-29-2024 C. trachomatis DNA LATRICE+probe Ql (Unsp spec) Not detected Not Detected [facility] Interpretation and review of laboratory results Normal [facility] N gonorrhoeae, DNA Probe Not detected Not Detec génesis [facility] Methodology: real-time PCR This test is intended for medical purposes only and is not intended for the evaluation of suspected sexual abuse or for other forensic purposes. In certain contexts, culture may be required to meet applicable laws and regulations for diagnosis of C. trachomatis and N. gonorrhoeae infections. Per 2014 CDC recommmendations, this test does not include confirmation of positive results by an alternative nucleic acid target. A negative result does not exclude the possibility of infection. A result of invalid indicates that a new specimen should be collected if clinically indicated. [facility] No Panel Informationon 06-29 Interpretation and review of laboratory results Normal [facility] Office Visiton 06-29-2024 Follow-up visit [id number] Sumit Green 2005 F Date Provider Department Center 06/29/2024 [id number], [facility] WOM None Chart Close Cosign Required by: Ryan Ferrara MD[NATHAN] No family history on file Level of Service:13830 [place] OFFICE/OUTPATIENT NEW LOW MDM 30 MINUTES Reason for Visit and Comments: Follow-up [023132] - U/S follow up Normal [facility] Progress Noteon 06-29-2024 Progress Note VITALS- BP-100/68 HR-76 TEMP-98.2 F WEIGHT-105 LBS A dermatology technician was offered to be present during her exam. The patient: DECLINED Normal [facility] Progress Note ---- Attestation signed by Ryan Ferrara MD at 06/29/2024 2:14 PM [facility]: This patient was seen in the [facility] by the resident. I reviewed and agree with the care provided by the resident during or immediately following the visit including the patient's medical history, the resident's finding in the physical exam, patient's diagnosis and treatment plan. ---- Sumit Green 06/29/2025 18 y.o. Chief Complaint Patient presents with Follow-up U/S follow up No LMP recorded. Patient is . Primary CarePhysician: Jeremy Vásquez HPI: Sumit Green is a 18 y.o. female presents for amenorrhea visit. Admitted to medicine for pyelonephritis on 06/14 and also found to be at that time Treated with IV Rocephin then transitioned to PO Augmentin for 7 day out patient course, reports she did complete the treatment in full. She was recently seen on 06/25 in [facility] and endorses continued dysuria with a Ucx positive for 50-14784 CFU of E coli and per patient was not started on any meds. Today she endorses dysuria. Endorses some cramping. Denies fevers, chills, hematuria, flank pain, vaginal bleeding. She reports her LMP was May 09. TVUS on 06/14 demonstrated: gestational sac measuring approximately 13mm with estimated gestational age of 6 weeks 1 day noted a 1.8 cm subchorionic hemorrhage, heart rate not noted on ultrasound today. Patient was to have 2 week follow up US, performed today with read demonstrating FHR with ARVIND of 02/13/2025 at 7w2d P: 0 PMHx: Denies PSHx: Denies Allergies: NKDA Meds: Iron and PNV FamHx: Maternal gma- breast cancer Social Hx: Denies recreational drug use, vapes for two hits daily, trying to cut back. [place] in [employer] and has been given appropriate accomodation for lifiting OB History Para Term AB Living 1 SAB IAB Ectopic Multiple Live Births # Outcome Date GA Lbr Morales/2nd Weight Sex Type Anes PTL Lv 1 Current No past medical history on file. 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 Please contact your purchasing administrator to configure this SmartLink. No family history on file. Social History Socioeconomic History Marital status: Single Spouse name: Not on file Number of children: Not on file Years of education: Not on file Highest education level: Not on file Occupational History Not on file Tobacco Use Smoking status: Never Smokeless tobacco: Never Vaping Use Vaping status: Every Day Substance and Sexual Activity Alcohol use: Never Drug use: Never Sexual activity: Not on file Other Topics Concern Not on file Social History Narrative Not on file Social Drivers of Health Financial Resource Strain: Not on file Food Insecurity: No Food Insecurity (06/14/2024) Hunger Vital Sign Worried About Running Out of Food in the Last Year: Never true Ran Out of Food in the Last Year: Never true Transportation Needs: No Transportation Needs (06/14/2024) PRAPARE - Transportation Lack of Transportation (Medical): No Lack of Transportation (Non-Medical): No Physical Activity: Not on file Stress: Not on file Social Connections: Not on file Intimate Partner Violence: Not At Risk (06/14/2024) Humiliation, Afraid, Rape, and Kick questionnaire Fear of Current or Ex-Partner: No Emotionally Abused: No Physically Abused: No Sexually Abused: No Housing Stability: Low Risk (06/14/2024) Housing Stability Vital Sign Unable to Pay for Housing in the Last Year: No Number of Times Moved in the Last Year: 0 Homeless in the Last Year: No MEDICATIONS: Current Outpatient Medications: albuterol 108 (90 Base) MCG/ACT inhaler, Inhale 2 puffs every 4 hours as needed for wheezing., Disp: 18 g, Rfl: 0 doxylamine (Unisom) 25 MG tablet, Take 1 tablet (25 mg) by mouth Nightly as needed for sleep., Disp: 30 tablet, Rfl: 0 ferrous sulfate 325 (65 Fe) MG tablet, Take 1 tablet (325 mg) by mouth daily (with breakfast)., Disp: 30 tablet, Rfl: 0 nicotine (Nicoderm, Step 3) 7 MG/24HR patch, Place 1 patch on the skin Every 24 hours., Disp: 30 patch, Rfl: 3 nitrofurantoin, macrocrystal-monohy drate, (Macrobid) 100 MG capsule, Take 1 capsule (100 mg) by mouth 2 times daily for 5 days., Disp: 10 capsule, Rfl: 0 nitrofurantoin, macrocrystal-monohy drate, (Macrobid) 100 MG capsule, Take 1 capsule (100 mg) by mouth 2 times daily for 7 days., Disp: 14 capsule, Rfl: 0 27-1 MG tablet, Take 1 tablet by mouth daily., Disp: 30 tablet, Rfl: 0 pyridoxine (Vitamin B-6) 25 MG tablet, Take 1 tablet (25 mg) by mouth every 8 hours., Disp: 90 tablet, Rfl: 1 ALLERGIES: No Known Allergies Review of Systems: Review of Systems Pertinent ROS per HPI Physical Exam: There were no vitals taken for (more content not included)... Normal [facility] RPROrdered By: Mian jacobs on 06-29-2024 Reagin Ab RPR Ql (S) Non-Reactive Nonreactive S [facility] RPR WITH REFLEX QUANTon RPR Non-Reactive Normal Nonreactive [facility] Comment on above: Performed By: #### L [id number], [id number] ####Rope Twisting Machine Operator: ISABEL YUSUF ([id number])[address] RUBELLA ANTIBODY, IGGon 0 RUBELLA IMMUNE STATUS (LIAISON XL) 2.190 Normal >=0.900 [facility] Comment on above: Result Comment: IRENA Chairez COMMENTS: Interpretation Table: <0.900 Antibody NOT Detected >=0.900 AND <1.000 Antibody Equivocal >=1.000 Antibody Detected Performed By: #### L [id number] ####Rope Twisting Machine Operator: ISABEL YUSUF ([id number])[address] Reagin Ab RPR Ql (S)Ordered By: Mian Marks on 06-29-2024 Interpretation and review of laboratory results Normal [facility] Rubella antibody, IgGon 03-0 Interpretation and review of laboratory results Normal [facility] Rubella IgG 2.19 0.900 - PINF [facility] h Interpretation Table: <0.900 Antibody NOT Detected >=0.900 AND <1.000 Antibody Equivocal >=1.000 Antibody Detected [facility] T. vaginalis DNA LATRICE+probe Q l (Genital specimen)on 06-29-2024 Interpretation and review of laboratory results Normal [facility] Trichomonas vaginalis Not detected Not Detected [facility] Methodology: real-time PCR A negative result does not completely rule out infection with T. vaginalis. Results should be interpreted in conjunction with other clinical data. This test has not been validated for use with self-collected vaginal swab specimens from patients. This test is intended for medical purposes only and is not intended for the evaluation of suspected sexual abuse or for other forensic purposes. [facility] TRICHOMONAS VAGINALIS PCRon 06-29-2024 TRICHOMONAS VAGINALIS PCR TRICHOMONAS VAGINALIS PCR Reference Not Detected Not Detected ORDER COMMENTS: Methodology: real-time PCR A negative result does not completely rule out infection with T. vaginalis. Results should be interpreted in conjunction with other clinical data. This test has not been validated for use with self-collected vaginal swab specimens from patients. This test is intended for medical purposes only and is not intended for the evaluation of suspected sexual abuse or for other forensic purposes. Normal [facility] Comment on above: Performed By: #### L [id number] #### Rope Twisting Machine Operator: ISABEL YUSUF ([id number]) [address] URINE CULTUREon 06-29-2024 Bacteria identified Cx Nom (U) URINE CULTURE Reference Insignificant growth based on current clinical guidelines [ S = SUSCEPTIBLE R = RESISTANT I = INTERMEDIATE S-DD = Susceptible-dose dependent NS = Non-susceptible NO = No Interpretation ] Normal [facility] Comment on above: Performed By: #### L [id number] #### Rope Twisting Machine Operator: ISABEL YUSUF ([id number]) [facility]) [address] [place] [address] US OB TRANSVAGINALon 025 US OB TRANSVAGINAL OBSTETRICS REPORT (Signed Final 06/29/2024 01:09 pm) PATIENT INFO: ID #: [id number] : [birth year] (18 yrs)(F) Name: SUMIT GREEN Visit Date: 06/29/2024 12:30 pm PERFORMED BY: Attending: Tegan Bautista MD, KEVIN, FACOG Performed By: Aurelia Morales RDMS Referred By: KARRIE VELÁSQUEZ Location: [facility] Visit Type: Outpatient SERVICE(S) PROVIDED: US < 14 weeks 62075 US Transvaginal 26138 INDICATIONS: Dating/ Viability Z34.91 VITAL SIGNS: Weight (lb): 106 Height: 5'5 BMI: 17.64 EVALUATION: Num Of Fetuses: 1 Preg. Location: Intrauterine Gest. Sac: Seen Yolk Sac: Visualized Pole: Visualized Heart Rate(bpm): 164 Cardiac Activity: Observed Lie: Too early to determine Placenta: Too early to evaluate Amniotic Fluid BETZAIDA FV: Appears WNL BIOMETRY: CRL: 15.5 mm G.Age: 8w 0d ARVIND: 02/08/25 GESTATIONAL AGE: LMP: 7w 2d Date: 05/09/24 ARVIND: 02/13/25 Best: 7w 2d Det. By: LMP (05/09/24) ARVIND: 02/13/25 CERVIX UTERUS ADNEXA: Right Ovary Size(cm) 3.31 x 1.89 x 2.28 Vol(ml): 7.47 Corpus luteal cyst 2.4 x 1.5 x 1.8 cm. Left Ovary Size(cm) 2.8 x 1.42 x 1.57 Vol(ml): 3.27 Normal in size and appearance G Jude Bautista MD, KEVIN, FACOG Electronically Signed Final Report 06/29/2024 01:09 pm IMPRESSION: 1. Garcia live intrauterine with a gestational age of 7w 2d with an ARVIND of 02/13/2025 based on clinically supplied LMP. 2. Clinically supplied ARVIND is confirmed by crown- rump length. 3. Normal early anatomy as noted above. 4. Normal uterus and adnexa as noted above. Recommendations: 1. Recommend NT screening between 11-13 weeks. 2. Aneuploidy screening as ordered per primary OB. MFM/genetics consult is available if desired. 3. Anatomic survey at 18-20 weeks. 4. Additional follow-up as clinically indicated. Ultrasound is not diagnostic for aneuploidy and will not detect all structural abnormalities, even if multiple exams are performed during a given . Normal ultrasound findings do not guarantee normal outcomes. Normal [facility] US Pelvis transvaginalon 1. Garcia live intrauterine with a gestational age of 7w 2d with an ARVIND of 02/13/2025 based on clinically supplied LMP. 2. Clinically supplied ARVIND is confirmed by crown- rump length. 3. Normal early anatomy as noted above. 4. Normal uterus and adnexa as noted above. Recommendations: 1. Recommend NT screening between 11-13 weeks. 2. Aneuploidy screening as ordered per primary OB. MFM/genetics consult is available if desired. 3. Anatomic survey at 18-20 weeks. 4. Additional follow-up as clinically indicated. Ultrasound is not diagnostic for aneuploidy and will not detect all structural abnormalities, even if multiple exams are performed during a given . Normal ultrasound findings do not guarantee normal outcomes. [facility] OBSTETRICS REPORT (Signed Final 06/29/2024 01:09 pm) PATIENT INFO: ID #: [id number] : [birth year] (18 yrs)(F) Name: SUMIT GREEN Visit Date: 06/29/2024 12:30 pm PERFORMED BY: Attending: Tegan Bautista MD, KEVIN, FACOG Performed By: Aurelia Morales RDMS Referred By: KARRIE VELÁSQUEZ Location: [facility] Visit Type: Outpatient SERVICE(S) PROVIDED: US < 14 weeks 53355 US Transvaginal 76270 INDICATIONS: Dating/ Viability Z34.91 VITAL SIGNS: Weight (lb): 106 Height: 5'5 BMI: 17.64 EVALUATION: Num Of Fetuses: 1 Preg. Location: Intrauterine Gest. Sac: Seen Yolk Sac: Visualized Pole: Visualized Heart Rate(bpm): 164 Cardiac Activity: Observed Lie: Too early to determine Placenta: Too early to evaluate Amniotic Fluid BETZAIDA FV: Appears WNL BIOMETRY: CRL: 15.5 mm G.Age: 8w 0d ARVIND: 02/08/25 GESTATIONAL AGE: LMP: 7w 2d Date: 05/09/24 ARVIND: 02/13/25 Best: 7w 2d Det. By: LMP (05/09/24) ARVIND: 02/13/25 CERVIX UTERUS ADNEXA: Right Ovary Size(cm) 3.31 x 1.89 x 2.28 Vol(ml): 7.47 Corpus luteal cyst 2.4 x 1.5 x 1.8 cm. Left Ovary Size(cm) 2.8 x 1.42 x 1.57 Vol(ml): 3.27 Normal in size and appearance Tegan Bautista MD, KEVIN, FACOG Electronically Signed Final Report 06/29/2024 01:09 pm [facility] Mikal Bautista MD - 06/29/2024 OBSTETRICS REPORT (Signed Final 06/29/2024 01:09 pm) PATIENT INFO: ID #: [id number] : [birth year] (18 yrs)(F) Name: SUMIT GREEN Visit Date: 06/29/2024 12:30 pm PERFORMED BY: Attending: Tegan Bautista MD, KEVIN, FACOG Performed By: Aurelia Morales RDMS Referred By: KARRIE VELÁSQUEZ Location: [facility] Visit Type: Outpatient SERVICE(S) PROVIDED: US < 14 weeks 67091 US Transvaginal 85775 INDICATIONS: Dating/ Viability Z34.91 VITAL SIGNS: Weight (lb): 106 Height: 5'5 BMI: 17.64 EVALUATION: Num Of Fetuses: 1 Preg. Location: Intrauterine Gest. Sac: Seen Yolk Sac: Visualized Pole: Visualized Heart Rate(bpm): 164 Cardiac Activity: Observed Lie: Too early to determine Placenta: Too early to evaluate Amniotic Fluid BETZAIDA FV: Appears WNL BIOMETRY: CRL: 15.5 mm G.Age: 8w 0d ARVIND: 02/08/25 GESTATIONAL AGE: LMP: 7w 2d Date: 05/09/24 ARVIND: 02/13/25 Best: 7w 2d Det. By: LMP (05/09/24) ARVIND: 02/13/25 CERVIX UTERUS ADNEXA: Right Ovary Size(cm) 3.31 x 1.89 x 2.28 Vol(ml): 7.47 Corpus luteal cyst 2.4 x 1.5 x 1.8 cm. Left Ovary Size(cm) 2.8 x 1.42 x 1.57 Vol(ml): 3.27 Normal in size and appearance G Jude Bautista MD, KEVIN, FACOG Electronically Signed Final Report 06/29/2024 01:09 pm IMPRESSION: 1. Garcia live intrauterine with a gestational age of 7w 2d with an ARVIND of 02/13/2025 based on clinically supplied LMP. 2. Clinically supplied ARVIND is confirmed by crown- rump length. 3. Normal early anatomy as noted above. 4. Normal uterus and adnexa as noted above. Recommendations: 1. Recommend NT screening between 11-13 weeks. 2. Aneuploidy screening as ordered per primary OB. MFM/genetics consult is available if desired. 3. Anatomic survey at 18-20 weeks. 4. Additional follow-up as clinically indicated. Ultrasound is not diagnostic for aneuploidy and will not detect all structural abnormalities, even if multiple exams are performed during a given . Normal ultrasound findings do not guarantee normal outcomes. [facility] Study observation (narrative) Betty Egan alth US Pelvis transvaginalOrdere d By: Mikal Bautista on 06-29-2024 [facility] Work Phone: Bacteria identified Cx Nom ( U)Ordered By: Meghana Singh on 06-27-2024 Interpretation and review of laboratory results Abnormal [facility] Urine culture (clean catch)O rdered By: Meghana Singh on 06-27-2024 Bacteria identified Cx Nom (U) Normal urogenital maira present [facility] Bacteria identified Cx Nom (U) 50,000-90,000 CFU/mL Escherichia coli Abnormal [facility] Progress Noteon 06-26-2024 Progress Note Based on Urine Culture Results showing growth of 50-90K E. Coli, will send in prescription for PO Macrobid 100 mg BID as this is the most safe in related UTI's. Normal [facility] Progress Note - Patient is starting to notice burning and pain with urination during midstream which is bothersome since a few days after completing Antibiotic Course - As per HPI, no other systemic signs of infection - Will order repeat UA and Urine Culture for further detail and if triple positive for Leukocytes, Nitrites, and Bacteria will decide on best treatment course Normal [facility] COMPLETE URINALYSISon 2024 BACTERIA (#/HPF) IN URINE Negative Normal Negative [facility] Comment on above: Performed By: #### L [id number] #### Rope Twisting Machine Operator: ISABEL YUSUF ([id number]) [facility]) [address] [place] [address] BILIRUBIN, TOTAL PRESENCE IN URINE Negative Normal Negative [facility] Comment on above: Performed By: #### L [id number] #### Rope Twisting Machine Operator: ISABEL YUSUF ([id number]) [facility]) [address] [place] [address] Clarity (U) Clear Normal Clear [facility] Comment on above: Performed By: #### L [id number] #### Rope Twisting Machine Operator: ISABEL YUSUF ([id number]) [facility]) [address] [place] [address] Color (U) Light Yellow Normal Lt. Yellow [facility] Comment on above: Performed By: #### L [id number] #### Rope Twisting Machine Operator: ISABEL YUSUF ([id number]) [facility]) [address] [place] [address] [place] GLUCOSE (MG/DL) IN URINE Normal Normal Normal (<70 ) [facility] Comment on above: Performed By: #### L [id number] #### Rope Twisting Machine Operator: ISABEL YUSUF ([id number]) [facility] [address] [place] [address] HEMOGLOBIN PRESENCE IN URINE Negative Normal Negative [facility] Comment on above: Performed By: #### L [id number] #### Rope Twisting Machine Operator: ISABEL YUSUF ([id number]) [facility] [address] [place] [address] [place] HYALINE CASTS (#/LPF) IN URINE SEDIMENT BY MICROSCOPY Negative Normal Negative [facility] Comment on above: Performed By: #### L [id number] #### Rope Twisting Machine Operator: ISABEL YUSUF ([id number]) [facility] [address] [place] [address] Ketones Ql (U) Negative Normal Negative [facility] Comment on above: Performed By: #### L [id number] #### Rope Twisting Machine Operator: ISABEL YUSUF ([id number]) [facility] [address] [place] [address] [place] LEUKOCYTE ESTERASE PRESENCE IN URINE BY TEST STRIP 75 Herrera/uL Abnormal Negative [facility] Comment on above: Performed By: #### L [id number] #### Rope Twisting Machine Operator: ISABEL YUSUF ([id number]) [facility] [address] [place] [address] [place] MUCUS (#/LPF) IN URINE SEDIMENT Few Normal Negative [facility] Comment on above: Performed By: #### L [id number] #### Rope Twisting Machine Operator: ISABEL YUSUF ([id number]) [facility] ([facility]) [address] [place] [address] [place] NITRITE PRESENCE IN URINE Negative Normal Negative [facility] Comment on above: Performed By: #### L [id number] #### Rope Twisting Machine Operator: ISABEL YUSUF ([id number]) [facility] [address] [place] [address] [place] pH (U) 6.5 [pH] Normal 5.0-8.0 [facility] Comment on above: Performed By: #### L [id number] #### Rope Twisting Machine Operator: ISABEL YUSUF ([id number]) [facility]) [address] [place] [address] Protein (U) [Mass/Vol] Negative Normal Negative [facility] Comment on above: Performed By: #### L [id number] #### Rope Twisting Machine Operator: ISABEL YUSUF ([id number]) [facility] ([facility]) [address] [place] [address] RBC (#/HPF) IN URINE SEDIMENT 0-2 Normal 0-2 [facility] Comment on above: Performed By: #### L [id number] #### Rope Twisting Machine Operator: ISABEL YUSUF ([id number]) [facility]) [address] [place] [address] Specific gravity (U) [Rel density] 1.016 Normal 1.005-1.030 [facility] Comment on above: Performed By: #### L [id number] #### Rope Twisting Machine Operator: ISABEL YUSUF ([id number]) [facility] ([facility]) [address] [place] [address] SQUAMOUS EPITHELIAL CELLS (#/HPF) IN URINE SEDIMENT 6-10 Abnormal 3-5 [facility] Comment on above: Performed By: #### L [id number] #### Rope Twisting Machine Operator: ISABEL YUSUF ([id number]) [facility] ([facility]) [address] [place] [address] [place] UROBILINOGEN (MG/DL) IN URINE Normal Normal Normal (0-1) [facility] Comment on above: Performed By: #### L [id number] #### Rope Twisting Machine Operator: ISABEL YUSUF ([id number]) [facility]) [address] [place] [address] [place] WBC (LEUKOCYTE) (#/HPF) IN URINE SEDIMENT 0-2 Normal 0-5 [facility] Comment on above: Performed By: #### L [id number] #### Rope Twisting Machine Operator: ISABEL YUSUF ([id number]) [facility] [address] [id number] [facility] Office Visiton 06-25-2024 Follow-up visit [id number] Sumit Green 2005 F Date Provider Department Center 06/25/2024 8557-SHERRY VICK [facility] Chart Close Cosign Accepted by: LIZA WHITMAN[[email or web address]] Chart Close Cosign Accepted on: TueJun 27, 2024 8:07 AM No family history on file Level of Service:24315 [place] TRANSJ CARE MGMT MOD MDM F2F 14 JALEESA D DISCHARGE Reason for Visit and Comments: Hospital Follow-up [832] - Uti, yeast infection, Normal [facility] Progress Noteon 06-25-2024 Progress Note Teaching Physician Note Direct Supervision - Modifier GC I performed a history & physical examination of the patient and also discussed the patient's management with the resident. I was present for the bustamante portions of any procedures performed. I reviewed the resident's note and agree with the documented findings and plan of care with any exceptions or corrections noted below. Please see resident?s note for further details. This service has been performed in part by a resident under the direction of a teaching physician (EUGENIO Hunt). Additional comments: Overall feels improved. She has noticed mild burning with urination mainly in evening for last few days so urine will be rechecked. Liza Whitman MD [facility] Progress Note Patient refuses flu vaccine due to: (example reasons in parentheses) [] cost (insurance doesn't cover, less expensive elsewhere) [] risk (I always get sick after flu shots, side effects) [] mistrust (moneymaking conspiracy, dangerous chemicals, not safe, knows someone who got very sick from it) [] susceptibility (I never get the flu) [] inertia (I've never had one, so I don't want one) [x] other MA time with patient 5 minutes TH [facility] Progress Note [facility] [address] [facility] [address] Dept: [phone] Dept Loc: [phone] 06/25/2024 Visit type: inpatient follow up Reason for Visit: Hospital Follow-up (Uti, yeast infection, ) ASSESSMENT/PLAN 1. Recurrent UTI (urinary tract infection) complicating , first trimester Assessment & Plan: - Patient is starting to notice burning and pain with urination during midstream which is bothersome since a few days after completing Antibiotic Course - As per HPI, no other systemic signs of infection - Will order repeat UA and Urine Culture for further detail and if triple positive for Leukocytes, Nitrites, and Bacteria will decide on best treatment course Orders: - Urinalysis with reflex microscopic (clean catch) - Urine culture (clean catch) Follow up in 3 months (on 09/25/2024). Subjective Sumit Green is a 18 y.o. female presenting today for a Transitional Care Management Visit related to her recent hospital stay. HPI Sumit Green is a 18 y.o. female with no significant past medical history that presented to [facility] ED on 06/14/2024 with lightheadedness and nausea/vomiting along with dysuria, burning, increased urinary frequency, and itching. She was found to be 6 weeks and UA showed signs of UTI. She was started on IV ceftriaxone for presumable treatment of complicated UTI. She was admitted for further workup due to concerns of pyelonephritis given . Labs were negative for leukocytosis and she was hemodynamically stable. US retroperitoneal was unremarkable. She was then transitioned to Augmentin 875-125 mg BID for 7 more days and discharged home in stable condition. Patient comes in to the [facility] today for regularly scheduled hospital follow up. She has overall been doing well and does not appear to be in any acute distress. However, patient is starting to notice burning and pain with urination during midstream which is bothersome. She denies any nausea, vomiting, fevers/chills, or BL Flank Abdominal Pain. We talked about repeating a UA and Urine Culture to rule out any abnormalities given that she is currently and we need to be extra careful if any infection were to arise. Date of Hospital discharge: 06/16/2024 Date of non face to face post-discharge phone call: 06/18/2024 Call initiated 2 business days of discharge: yes Complexity of Medical Decision making for this visit: Moderate Detailed post-discharge medication reconciliation Current medication and discharge medication lists were reviewed and reconciled during today's visit - see below Instructed patient to take all discharge medications as prescribed except where otherwise noted in assessment & plan. Medications listed as ordered at the time of discharge from hospital: Outpatient Medications Prior to Visit Medication Sig Dispense Refill albuterol 108 (90 Base) MCG/ACT inhaler Inhale 2 puffs every 4 hours as needed for wheezing. 18 g 0 ferrous sulfate 325 (65 Fe) MG tablet Take 1 tablet (325 mg) by mouth daily (with breakfast). 30 tablet 0 27-1 MG tablet Take 1 tablet by mouth daily. 30 tablet 0 No facility-administer ed medications prior to visit. Reconciled medication list reflecting any changes from today's visit: Current Outpatient Medications: albuterol 108 (90 Base) MCG/ACT inhaler, Inhale 2 puffs every 4 hours as needed for wheezing., Disp: 18 g, Rfl: 0 ferrous sulfate 325 (65 Fe) MG tablet, Take 1 tablet (325 mg) by mouth daily (with breakfast)., Disp: 30 tablet, Rfl: 0 27-1 MG tablet, Take 1 tablet by mouth daily., Disp: 30 tablet, Rfl: 0 Review of Systems Constitutional: Negative for activity change, appetite change, chills, fatigue and fever. HENT: Negative for congestion. Eyes: Negative for visual disturbance. Respiratory: Negative for chest tightness. Cardiovascular: Negative for chest pain and palpitations. Gastrointestinal: Negative for abdominal distention and abdominal pain. Genitourinary: Positive for dysuria. Musculoskeletal: Negative for arthralgias and back pain. Skin: Negative for color change. Neurological: Negative for dizziness and headaches. Psychiatric/Behavio ral: Negative for agitation, behavioral problems and confusion. No Known Allergies No past medical history on file. No past surgical history on file. No family history on file. Social History Tobacco Use Smoking status: Never Smokeless tobacco: Never Substance Use Topics Alcohol use: Never Objective BP 115/78 (BP Location: Left arm, Patient Position: Sitting, BP Cuff Size: Adult) Pulse 79 Temp 36.6 ?C (97.9 ?F) (Temporal) Ht 5' 5 (1.651 m) Wt 106 lb (48.1 kg) SpO2 98% Comment: Ra BMI 17.64 kg/m? Physical Exam Constitutional: Appearance: Normal appearance. HENT: Head: Normocephalic and atraumatic. Cardiovascular (more content not included)... Normal [facility] URINE CULTUREon 06-25-2024 Bacteria identified Cx Nom (U) URINE CULTURE Reference Normal urogenital maiar present ESCHERICHIA COLI 50,000-90,000 CFU/mL Escherichia coli (A) Organism: ESCHERICHIA COLI Antibiotic CLAUDIO Interpretation Status Amoxicillin / Clavulanate <=2 ug/ml S F Ampicillin <=2 ug/ml S F Ampicillin / Sulbactam <=2 ug/ml S F Aztreonam <=1 ug/ml S F Cefazolin <=1 ug/ml S F Cefepime <=0.12 ug/ml S F Ceftriaxone <=0.25 ug/ml S F Ciprofloxacin <=0.06 ug/ml S F Ertapenem <=0.12 ug/ml S F Gentamicin <=1 ug/ml S F Meropenem <=0.25 ug/ml S F Nitrofurantoin <=16 ug/ml S F Piperacillin / Tazobactam <=4 ug/ml S F Trimethoprim / Sulfamethoxazole <=20 ug/ml S F [ S = SUSCEPTIBLE R = RESISTANT I = INTERMEDIATE S-DD = Susceptible-dose dependent NS = Non-susceptible NO = No Interpretation ] Normal [facility] Comment on above: Performed By: #### L [id number] #### Rope Twisting Machine Operator: ISABEL YUSUF ([id number]) [facility] ([facility]) [address] [place] [address] Urinalysis complete panel (U )Ordered By: Starr Simmons on 06-25-2024 Bacteria LM.HPF (Urine sed) [#/Area] Negative Negative /HPF [facility] Bilirubin Ql (U) Negative Negative mg/dL [facility] Clarity (U) Clear Clear [facility] Color (U) Light Yellow Lt. Yellow [facility] Epithelial cells.squamous LM.HPF (Urine sed) [#/Area] 6-10 Abnormal [facility] Glucose Ql (U) Normal Normal (<70) mg/dL [facility] Hemoglobin Ql (U) Negative Negative mg/dL [facility] Hyaline casts Auto (Urine sed) [#/Area] Negative Negative /LPF [facility] Interpretation and review of laboratory results Abnormal [facility] Ketones (U) [Mass/Vol] Negative Negative mg/d L [facility] Leukocyte esterase Test strip Ql (U) 75 Abnormal Negative Herrera/uL [facility] Mucus LM.HPF (Urine sed) [#/Area] Few Negative /LPF [facility] Nitrite Ql (U) Negative Negative [facility] th pH (U) 6.5 [pH] 5.0 - 8.0 pH [facility] Protein (U) [Mass/Vol] Negative Negative mg/d L [facility] RBC LM.HPF (Urine sed) [#/Area] 0-2 [facility] Specific gravity (U) [Rel density] 1.016 1.005 - 1.030 [facility] Urobilinogen (U) [Mass/Vol] Normal Normal (0-1) mg/dL [facility] WBC LM.HPF (Urine sed) [#/Area] 0-2 [facility] Progress Noteon 06-18-2024 Progress Note Initial Post-Hospital Follow Up Call Call within 2 business days of discharge: yes Patient: Sumit Green Patient : 2005 Spoke with: n/a Discharge department/facility : [facility] [id number]-vl-face services provided: Assessment and support for treatment adherence and medication management - Did the patient get her medications filled and are they taking them as instructed from discharge? -Unable to assess as call went unanswered. - Confirmed patient is scheduled for a follow up appointment within 14 days of hospital discharge -Unable to assess transportation needs as call went unanswered / unable to reach patient. Follow Up Future Appointments Date Time Provider Department Center 06/25/2024 2:50 PM Vick Cortez MD [facility] 06/29/2024 12:30 PM [facility] M[facility] RM 2 [facility] 75 [facility]CH MFM 06/29/2024 1:30 PM Gloria Ohara MD [facility] WOM None Yovani Chandra RN [facility] Progress Note Attempted to contact patient via telephone to discuss transition of care from recent hospitalization. Sumit Green did not answer, unable to leave voicemail. Message sent to patient via [employer]. Plan: Attempt to call patient at a later time. If patient were to call back, please transfer call to [place] (Ext. [phone]), thank you. [facility] 36on 06-16-2024 36 Notification of Hospital Discharge Sumit Green was discharged from [facility] to home on 06/16/2024. Sumit Green plans to follow up outpatient with the [facility]. Will route this note to Humberto Chandra (Nate) to initiate Transitional Care Management Process. Prior to patient's discharge, the patient was scheduled an IMC follow up appointment within 14 days of hospital discharge. Future Appointments Date Time Provider Department Center 06/25/2024 2:50 PM Vick Cortez MD [facility] 06/29/2024 12:30 PM [facility] MFM RM 2 [facility] 75 [facility]CH MFM 06/29/2024 1:30 PM Gloria Ohara MD [facility] WOM None Normal [facility] Bacteria identified Cx Nom ( U)Ordered By: Ekaterina Ann on 06-16-2024 Interpretation and review of laboratory results Normal [facility] CBC W Auto Differential pane l (Bld)on 06-16-2024 Basophils (Bld) [#/Vol] 0.1 10*3/uL 0.0 - 0.2 10*3/uL [facility] Basophils/100 WBC (Bld) 1 % 0.0 - 2.0 % [facility] Eosinophils (Bld) [#/Vol] 0.3 10*3/uL 0.0 - 0.5 10*3/uL [facility] Eosinophils/100 WBC (Bld) 4.8 % 0.0 - 6.0 % [facility] Erythrocyte distribution width (RBC) [Ratio] 14.4 % 11.5 - 15.0 % [facility] Hematocrit (Bld) [Volume fraction] 31.9 % Low 35.0 - 47.0 % [facility] Hemoglobin (Bld) [Mass/Vol] 11 g/dL Low 11.7 - 16.0 g/dL [facility] Immature granulocytes (Bld) [#/Vol] 0 10*3/uL NINF - 0.1 10*3/uL [facility] Immature granulocytes/100 WBC (Bld) 0.7 % 0.0 - 2.0 % [facility] [employer] Interpretation and review of laboratory results Abnormal [facility] [employer] Lymphocytes (Bld) [#/Vol] 1.7 10*3/uL 1.0 - 4.3 10*3/uL [facility] [employer] Lymphocytes/100 WBC (Bld) 28.4 % 15.0 - 45.0 % [facility] [employer] MCH (RBC) [Entitic mass] 26.2 pg 26.0 - 34.0 pg [facility] [employer] MCHC (RBC) [Mass/Vol] 34.5 % 30.5 - 36.0 % [facility] [employer] MCV (RBC) [Entitic vol] 76 fL Low 77.0 - 99.0 fL [facility] [employer] Monocytes (Bld) [#/Vol] 0.7 10*3/uL 0.0 - 0.9 10*3/uL [facility] [employer] Monocytes/100 WBC (Bld) 11.5 % 5.0 - 13.0 % [facility] [employer] Neutrophils (Bld) [#/Vol] 3.2 10*3/uL 1.8 - 7.5 10*3/uL [facility] [employer] Neutrophils/100 WBC (Bld) 53.6 % 38.0 - 82.0 % [facility] [employer] Nucleated RBC/100 WBC (Bld) [Ratio] 0 % [facility] [employer] Platelet mean volume (Bld) [Entitic vol] 8.7 fL Low 9.0 - 12.7 fL [facility] [employer] Platelets (Bld) [#/Vol] 299 10*3/uL 140 - 440 10*3/uL [facility] RBC (Bld) [#/Vol] 4.2 10*6/uL 3.80 - 5.2 0 10*6/uL [facility] [employer] WBC (Bld) [#/Vol] 5.9 10*3/uL 3.6 - 10.7 10*3/uL [facility] CBC WITH AUTO DIFFERENTIALon 06-16-2024 Basophils (Bld) [#/Vol] 0.1 10*3/uL Normal 0.0-0.2 [facility] Comment on above: Performed By: #### L [id number] ####Rope Twisting Machine Operator: ISABEL YUSUF ([id number])[facility] ([address] Basophils/100 WBC (Bld) 1.0 % Normal 0.0-2.0 [facility] Comment on above: Performed By: #### L [id number] ####Rope Twisting Machine Operator: ISABEL YUSUF ([id number])[facility])[address] [place] [address] Eosinophils (Bld) [#/Vol] 0.3 10*3/uL Normal 0.0-0.5 [facility] Comment on above: Performed By: #### L [id number] ####Rope Twisting Machine Operator: ISABEL YUSUF ([id number])[facility])[address] [place] [address] Eosinophils/100 WBC (Bld) 4.8 % Normal 0.0-6.0 [facility] Comment on above: Performed By: #### L [id number] ####Rope Twisting Machine Operator: ISABEL YUSUF ([id number])[facility])[address] [place] [address] Erythrocyte distribution width (RBC) [Ratio] 14.4 % Normal 11.5-15.0 [facility] Comment on above: Performed By: #### L [id number] ####Rope Twisting Machine Operator: ISABEL YUSUF ([id number])[facility])[address] [place] [address] Hematocrit (Bld) [Volume fraction] 31.9 % Low 35.0-47.0 [facility] Comment on above: Performed By: #### L [id number] ####Rope Twisting Machine Operator: ISABEL YUSUF ([id number])[facility])[address] [place] [address] Hemoglobin (Bld) [Mass/Vol] 11.0 g/dL Low 11.7-16.0 [facility] Comment on above: Performed By: #### L [id number] ####Rope Twisting Machine Operator: ISABEL YUSUF ([id number])[facility])[address] [place] [address] IMMATURE GRANS % 0.7 % Normal 0.0-2.0 [facility] Comment on above: Performed By: #### L [id number] ####Rope Twisting Machine Operator: ISABEL YUSUF ([id number])[facility])[address] [place] [address] IMMATURE GRANS ABSOLUTE 0.0 10*3/uL Normal <0.1 [facility] Comment on above: Performed By: #### L [id number] ####Rope Twisting Machine Operator: ISABEL YUSUF ([id number])[facility])[address] [place] [address] Lymphocytes (Bld) [#/Vol] 1.7 10*3/uL Normal 1.0-4.3 [facility] Comment on above: Performed By: #### L [id number] ####Rope Twisting Machine Operator: ISABEL YUSUF ([id number])[address] Lymphocytes/100 WBC (Bld) 28.4 % Normal 15.0-45.0 [facility] Comment on above: Performed By: #### L [id number] ####Rope Twisting Machine Operator: ISABEL YUSUF ([id number])[facility])[address] [place] [address] MCH (RBC) [Entitic mass] 26.2 pg Normal 26.0-34.0 [facility] Comment on above: Performed By: #### L [id number] ####Rope Twisting Machine Operator: ISABEL YUSUF ([id number])[address] MCHC 34.5 % Normal 30.5-36.0 [facility] Comment on above: Performed By: #### L [id number] ####Rope Twisting Machine Operator: ISABEL YUSUF ([id number])[address] MCV (RBC) [Entitic vol] 76.0 fL Low 77.0-99.0 S [facility] Comment on above: Performed By: #### L [id number] ####Rope Twisting Machine Operator: ISABEL YUSUF ([id number])[facility] [place] [address] Monocytes (Bld) [#/Vol] 0.7 10*3/uL Normal 0.0-0.9 [facility] Comment on above: Performed By: #### L [id number] ####Rope Twisting Machine Operator: ISABEL YUSUF ([id number])[facility] ([facility])[address] [place] [address] Monocytes/100 WBC (Bld) 11.5 % Normal 5.0-13.0 [facility] Comment on above: Performed By: #### L [id number] ####Rope Twisting Machine Operator: ISABEL YUSUF ([id number])[facility] ([facility])[address] [place] [address] NEUTROPHILS ABSOLUTE 3.2 10*3/uL Normal 1.8-7.5 [facility] Comment on above: Performed By: #### L [id number] ####Rope Twisting Machine Operator: ISABEL YUSUF ([id number])[facility] ([facility])[address] [place] [address] Neutrophils/100 WBC (Bld) 53.6 % Normal 38.0-82.0 [facility] Comment on above: Performed By: #### L [id number] ####Rope Twisting Machine Operator: ISABEL YUSUF ([id number])[facility] ([facility])[address] [place] [address] NRBC 0.0 /100 WBCs Normal 0.0-2.0 [facility] Comment on above: Performed By: #### L [id number] ####Rope Twisting Machine Operator: ISABEL YUSUF ([id number])[facility] ([facility])[address] [place] [address] [place] Platelet mean volume (Bld) [Entitic vol] 8.7 fL Low 9.0-12.7 [facility] Comment on above: Performed By: #### L [id number] ####Rope Twisting Machine Operator: ISABEL YUSUF ([id number])[facility] ([facility])[address] [place] [address] [place] Platelets (Bld) [#/Vol] 299 10*3/uL Normal 140-440 [facility] Comment on above: Performed By: #### L [id number] ####Rope Twisting Machine Operator: ISABEL YUSUF ([id number])[facility] ([facility])[address] [place] [address] RBC (Bld) [#/Vol] 4.20 10*6/uL Normal 3.80-5.20 [facility] Comment on above: Performed By: #### L [id number] ####Rope Twisting Machine Operator: ISABEL YUSUF ([id number])[facility] ([facility])[address] [place] [address] WBC (Bld) [#/Vol] 5.9 10*3/uL Normal 3.6-10.7 [facility] Comment on above: Performed By: #### L [id number] ####Rope Twisting Machine Operator: ISABEL YUSUF ([id number])[facility] ([facility])[address] [place] [address] COMPREHENSIVE METABOLIC PANE Jose Angel 06-16-2024 Albumin [Mass/Vol] 3.8 g/dL Normal 3.5-5.0 [facility] Comment on above: Performed By: #### L [id number] #### Rope Twisting Machine Operator: ISABEL YUSUF ([id number]) [facility] ([facility]) [address] [place] [address] ALP [Catalytic activity/Vol] 53 U/L Normal 40-150 [facility] Comment on above: Performed By: #### L [id number] #### Rope Twisting Machine Operator: ISABEL YUSUF ([id number]) [facility] ([facility]) [address] [place] [address] ALT [Catalytic activity/Vol] 25 U/L Normal <30 [facility] Comment on above: Performed By: #### L [id number] #### Rope Twisting Machine Operator: ISABEL YUSUF ([id number]) [facility] ([facility]) [address] [place] [address] Anion gap [Moles/Vol] 7 mmol/L Normal 3-13 [facility] Comment on above: Performed By: #### L [id number] #### Rope Twisting Machine Operator: ISABEL YUSUF ([id number]) [facility] ([facility]) [address] [place] [address] AST [Catalytic activity/Vol] 17 U/L Normal <34 [facility] Comment on above: Performed By: #### L [id number] #### Rope Twisting Machine Operator: ISABEL YUSUF ([id number]) [facility] [address] [place] [address] Bilirubin [Mass/Vol] 0.4 mg/dL Normal <1.2 [facility] Comment on above: Performed By: #### L [id number] #### Rope Twisting Machine Operator: ISABEL YUSUF ([id number]) [facility] ([facility]) [address] [place] [address] Calcium [Mass/Vol] 8.8 mg/dL Normal 8.4-10.2 [facility] Comment on above: Performed By: #### L [id number] #### Rope Twisting Machine Operator: ISABEL YUSUF ([id number]) [facility] [address] [place] [address] [place] Chloride [Moles/Vol] 110 mmol/L High 98-107 [facility] Comment on above: Performed By: #### L [id number] #### Rope Twisting Machine Operator: ISABEL YUSUF ([id number]) [facility] ([facility]) [address] [place] [address] [place] CO2 [Moles/Vol] 18 mmol/L Low 22-29 [facility] Comment on above: Performed By: #### L [id number] #### Rope Twisting Machine Operator: ISABEL YUSUF ([id number]) [facility] [address] [place] [address] Creatinine [Mass/Vol] 0.63 mg/dL Normal 0.57-1.11 [facility] Comment on above: Performed By: #### L [id number] #### Rope Twisting Machine Operator: ISABEL YUSUF ([id number]) [facility] ([facility]) [address] [place] [address] GLOMERULAR FILTRATION RATE ML/MIN/1.73 SQ M.PREDICTED >90.0 Normal >60.0 [facility] Comment on above: Result Comment: Calc ulation based on the Chronic Kidney Disease Epidemiology Collaboration (CKD-EPI) equation refit without adjustment for race Performed By: #### L [id number] #### Rope Twisting Machine Operator: ISABEL YUSUF ([id number]) [facility] ([facility]) [address] [place] [address] Glucose [Mass/Vol] 86 mg/dL Normal 74-100 [facility] Comment on above: Performed By: #### L [id number] #### Rope Twisting Machine Operator: ISABEL YUSUF ([id number]) [facility]) [address] [place] [address] Potassium [Moles/Vol] 4.0 mmol/L Normal 3.5-5.1 [facility] Comment on above: Result Comment: [facility] potassium values may be up to 0.5 mmol/L lower than serum values. Performed By: #### L [id number] #### Rope Twisting Machine Operator: ISABEL YUSUF ([id number]) [facility] ([facility]) [address] [place] [address] Protein [Mass/Vol] 6.5 g/dL Normal 6.4-8.3 [facility] Comment on above: Performed By: #### L [id number] #### Rope Twisting Machine Operator: ISABEL YUSUF ([id number]) [facility] ([facility]) [address] [place] [address] [place] Sodium [Moles/Vol] 135 mmol/L Low 136-145 [facility] Comment on above: Performed By: #### L [id number] #### Rope Twisting Machine Operator: ISABEL YUSUF ([id number]) [facility]) [address] [place] [address] Urea nitrogen [Mass/Vol] 10 mg/dL Normal 8-21 [facility] Comment on above: Performed By: #### L [id number] #### Rope Twisting Machine Operator: ISABEL YUSUF ([id number]) [facility]) [address] [place] [address] Comprehensive metabolic 1998 panelon 06-16-2024 Albumin [Mass/Vol] 3.8 g/dL 3.5 - 5.0 g/dL [facility] ALP [Catalytic activity/Vol] 53 U/L 40 - 150 U/L [facility] ALT [Catalytic activity/Vol] 25 U/L NINF - 30 U/L [facility] Anion gap [Moles/Vol] 7 mmol/L 3 - 13 mmol/L [facility] AST [Catalytic activity/Vol] 17 U/L NINF - 34 U/L [facility] Bilirubin [Mass/Vol] 0.4 mg/dL NINF - 1.2 mg/dL [facility] Calcium [Mass/Vol] 8.8 mg/dL 8.4 - 10. 2 mg/dL [facility] Chloride [Moles/Vol] 110 mmol/L High 98 - 107 mmol/L [facility] CO2 [Moles/Vol] 18 mmol/L Low 22 - 29 mmol/L [facility] Creatinine [Mass/Vol] 0.63 mg/dL 0.57 - 1.11 mg/dL [facility] GFR/1.73 sq M.predicted (S/P/Bld) [Vol rate/Area] - PINF [facility] Comment on above: Calculation based on the Chronic Kidney Disease Epidemiology Collaboration (CKD-EPI) equation refit without adjustment for race Glucose [Mass/Vol] 86 mg/dL 74 - 100 mg/dL [facility] Interpretation and review of laboratory results Abnormal [facility] Potassium [Moles/Vol] 4 mmol/L 3.5 - 5.1 mmol/L [facility] Comment on above: Plasma potassium jared ues may be up to 0.5 mmol/L lower than serum values. Protein [Mass/Vol] 6.5 g/dL 6.4 - 8.3 g/dL [facility] Sodium [Moles/Vol] 135 mmol/L Low 136 - 145 mmol/L [facility] Urea nitrogen [Mass/Vol] 10 mg/dL 8 - 21 mg/d L [facility] Laboratory - Microbiology an d Antimicrobial susceptibilityOrdered By: Ekaterina Ann on 06-16-2024 Bacteria identified Cx Nom (U) No growth (<1,000 CFU/mL) [facility] Nursing Noteon 06-16-2024 Nursing Note Patients IV removed. This RN asked patient if another IV could be replaced. Patient refused. All risks dicussed with patient. Normal [facility] Progress Noteon 06-16-2024 Progress Note Nutrition rescreen completed. Patient referred to the Dietitian. BMI 17.64. Normal [facility] 30on 06-15-2024 30 Problem: Pain - Adult Goal: Verbalizes/displays adequate comfort level or baseline comfort level Outcome: Progressing Problem: Safety - Adult Goal: Free from fall injury Outcome: Progressing Problem: Discharge Planning Goal: Discharge to home or other facility with appropriate resources Outcome: Progressing Problem: Chronic Conditions and Co-morbidities Goal: Patient's chronic conditions and co-morbidity symptoms are monitored and maintained or improved Outcome: Progressing Normal [facility] CBC W Auto Differential pane l (Bld)on 06-15-2024 Basophils (Bld) [#/Vol] 0 10*3/uL 0.0 - 0.2 10*3/uL [facility] Basophils/100 WBC (Bld) 0.8 % 0.0 - 2.0 % [facility] Eosinophils (Bld) [#/Vol] 0.2 10*3/uL 0.0 - 0.5 10*3/uL [facility] Eosinophils/100 WBC (Bld) 3.7 % 0.0 - 6.0 % [facility] Erythrocyte distribution width (RBC) [Ratio] 14 % 11.5 - 15.0 % [facility] Hematocrit (Bld) [Volume fraction] 32.2 % Low 35.0 - 47.0 % [facility] Hemoglobin (Bld) [Mass/Vol] 10.6 g/dL Low 11.7 - 16.0 g/dL [facility] Immature granulocytes (Bld) [#/Vol] 0 10*3/uL NINF - 0.1 10*3/uL [facility] Immature granulocytes/100 WBC (Bld) 0.8 % 0.0 - 2.0 % [facility] Interpretation and review of laboratory results Abnormal [facility] Lymphocytes (Bld) [#/Vol] 1.2 10*3/uL 1.0 - 4.3 10*3/uL [facility] Lymphocytes/100 WBC (Bld) 22.6 % 15.0 - 45.0 % [facility] MCH (RBC) [Entitic mass] 25.7 pg Low 26.0 - 34.0 pg [facility] MCHC (RBC) [Mass/Vol] 32.9 % 30.5 - 36.0 % [facility] MCV (RBC) [Entitic vol] 78 fL 77.0 - 99.0 fL [facility] Monocytes (Bld) [#/Vol] 0.6 10*3/uL 0.0 - 0.9 10*3/uL [facility] Monocytes/100 WBC (Bld) 11.6 % 5.0 - 13.0 % [facility] Neutrophils (Bld) [#/Vol] 3.1 10*3/uL 1.8 - 7.5 10*3/uL [facility] Neutrophils/100 WBC (Bld) 60.5 % 38.0 - 82.0 % [facility] Nucleated RBC/100 WBC (Bld) [Ratio] 0 % [facility] Platelet mean volume (Bld) [Entitic vol] 8.7 fL Low 9.0 - 12.7 fL [facility] Platelets (Bld) [#/Vol] 295 10*3/uL 140 - 440 10*3/uL [facility] RBC (Bld) [#/Vol] 4.13 10*6/uL 3.80 - 5.2 0 10*6/uL [facility] WBC (Bld) [#/Vol] 5.1 10*3/uL 3.6 - 10.7 10*3/uL [facility] CBC WITH AUTO DIFFERENTIALon 06-15-2024 Basophils (Bld) [#/Vol] 0.0 10*3/uL Normal 0.0-0.2 [facility] Comment on above: Performed By: #### L [id number] #### Rope Twisting Machine Operator: ISABEL YUSUF ([id number]) [facility] [address] [place] [address] Basophils/100 WBC (Bld) 0.8 % Normal 0.0-2.0 [facility] Comment on above: Performed By: #### L [id number] #### Rope Twisting Machine Operator: ISABEL YUSUF ([id number]) [facility] [address] [place] [address] Eosinophils (Bld) [#/Vol] 0.2 10*3/uL Normal 0.0-0.5 [facility] Comment on above: Performed By: #### L [id number] #### Rope Twisting Machine Operator: ISABEL YUSUF ([id number]) [facility]) [address] [place] [address] Eosinophils/100 WBC (Bld) 3.7 % Normal 0.0-6.0 [facility] Comment on above: Performed By: #### L [id number] #### Rope Twisting Machine Operator: ISABEL YUSUF ([id number]) [facility]) [address] [place] [address] Erythrocyte distribution width (RBC) [Ratio] 14.0 % Normal 11.5-15.0 [facility] Comment on above: Performed By: #### L [id number] #### Rope Twisting Machine Operator: ISABEL YUSUF ([id number]) [facility]) [address] [place] [address] Hematocrit (Bld) [Volume fraction] 32.2 % Low 35.0-47.0 [facility] Comment on above: Performed By: #### L [id number] #### Rope Twisting Machine Operator: ISABEL YUSUF ([id number]) [facility]) [address] [place] [address] Hemoglobin (Bld) [Mass/Vol] 10.6 g/dL Low 11.7-16.0 [facility] Comment on above: Performed By: #### L [id number] #### Rope Twisting Machine Operator: ISABEL YUSUF ([id number]) [facility]) [address] [place] [address] IMMATURE GRANS % 0.8 % Normal 0.0-2.0 [facility] Comment on above: Performed By: #### L [id number] #### Rope Twisting Machine Operator: ISABEL YUSUF ([id number]) [address] IMMATURE GRANS ABSOLUTE 0.0 10*3/uL Normal <0.1 [facility] Comment on above: Performed By: #### L [id number] #### Rope Twisting Machine Operator: ISABEL YUSUF ([id number]) [facility]) [address] [place] [address] Lymphocytes (Bld) [#/Vol] 1.2 10*3/uL Normal 1.0-4.3 [facility] Comment on above: Performed By: #### L [id number] #### Rope Twisting Machine Operator: ISABEL YUSUF ([id number]) [facility]) [address] [place] [address] Lymphocytes/100 WBC (Bld) 22.6 % Normal 15.0-45.0 [facility] Comment on above: Performed By: #### L [id number] #### Rope Twisting Machine Operator: ISABEL YUSUF ([id number]) [facility]) [address] [place] [address] MCH (RBC) [Entitic mass] 25.7 pg Low 26.0-34.0 [facility] Comment on above: Performed By: #### L [id number] #### Rope Twisting Machine Operator: ISABEL YUSUF ([id number]) [facility]) [address] [place] [address] MCHC 32.9 % Normal 30.5-36.0 [facility] Comment on above: Performed By: #### L [id number] #### Rope Twisting Machine Operator: ISABEL YUSUF ([id number]) [facility]) [address] [place] [address] MCV (RBC) [Entitic vol] 78.0 fL Normal 77.0-99.0 [facility] Comment on above: Performed By: #### L [id number] #### Rope Twisting Machine Operator: ISABEL YUSUF ([id number]) [facility]) [address] [place] [address] Monocytes (Bld) [#/Vol] 0.6 10*3/uL Normal 0.0-0.9 [facility] Comment on above: Performed By: #### L [id number] #### Rope Twisting Machine Operator: ISABEL YUSUF ([id number]) [facility] [address] [place] [address] Monocytes/100 WBC (Bld) 11.6 % Normal 5.0-13.0 [facility] Comment on above: Performed By: #### L [id number] #### Rope Twisting Machine Operator: ISABEL YUSUF ([id number]) [facility] [address] [place] [address] NEUTROPHILS ABSOLUTE 3.1 10*3/uL Normal 1.8-7.5 [facility] Comment on above: Performed By: #### L [id number] #### Rope Twisting Machine Operator: ISABEL YUSUF ([id number]) [facility] [address] [place] [address] Neutrophils/100 WBC (Bld) 60.5 % Normal 38.0-82.0 [facility] Comment on above: Performed By: #### L [id number] #### Rope Twisting Machine Operator: ISABEL YUSUF ([id number]) [facility] [address] [place] [address] NRBC 0.0 /100 WBCs Normal 0.0-2.0 [facility] Comment on above: Performed By: #### L [id number] #### Rope Twisting Machine Operator: ISABEL YUSUF ([id number]) [facility] ([facility]) [address] [place] [address] Platelet mean volume (Bld) [Entitic vol] 8.7 fL Low 9.0-12.7 [facility] Comment on above: Performed By: #### L [id number] #### Rope Twisting Machine Operator: ISABEL YUSUF ([id number]) [facility] [address] [place] [address] [place] Platelets (Bld) [#/Vol] 295 10*3/uL Normal 140-440 [facility] Comment on above: Performed By: #### L [id number] #### Rope Twisting Machine Operator: ISABEL YUSUF ([id number]) [facility] [address] [place] [address] [place] RBC (Bld) [#/Vol] 4.13 10*6/uL Normal 3.80-5.20 [facility] Comment on above: Performed By: #### L [id number] #### Rope Twisting Machine Operator: ISABEL YUSUF ([id number]) [facility] ([facility]) [address] [place] [address] WBC (Bld) [#/Vol] 5.1 10*3/uL Normal 3.6-10.7 [facility] Comment on above: Performed By: #### L [id number] #### Rope Twisting Machine Operator: ISABEL YUSUF ([id number]) [facility] ([facility]) [address] [place] [address] COMPREHENSIVE METABOLIC PANE Jose Angel 06-15-2024 Albumin [Mass/Vol] 3.6 g/dL Normal 3.5-5.0 [facility] Comment on above: Performed By: #### L [id number] #### Rope Twisting Machine Operator: ISABEL YUSUF ([id number]) [facility] ([facility]) [address] [place] [address] ALP [Catalytic activity/Vol] 51 U/L Normal 40-150 [facility] Comment on above: Performed By: #### L [id number] #### Rope Twisting Machine Operator: ISABEL YUSUF ([id number]) [facility]) [address] [place] [address] ALT [Catalytic activity/Vol] 25 U/L Normal <30 [facility] Comment on above: Performed By: #### L [id number] #### Rope Twisting Machine Operator: ISABEL YUSUF ([id number]) [facility]) [address] [place] [address] Anion gap [Moles/Vol] 7 mmol/L Normal 3-13 [facility] Comment on above: Performed By: #### L [id number] #### Rope Twisting Machine Operator: ISABEL YUSUF ([id number]) [facility]) [address] [place] [address] AST [Catalytic activity/Vol] 21 U/L Normal <34 [facility] Comment on above: Performed By: #### L [id number] #### Rope Twisting Machine Operator: ISABEL YUSUF ([id number]) [facility] ([facility]) [address] [place] [address] Bilirubin [Mass/Vol] 0.3 mg/dL Normal <1.2 [facility] Comment on above: Performed By: #### L [id number] #### Rope Twisting Machine Operator: ISABEL YUSUF ([id number]) [facility] ([facility]) [address] [place] [address] Calcium [Mass/Vol] 8.6 mg/dL Normal 8.4-10.2 [facility] Comment on above: Performed By: #### L [id number] #### Rope Twisting Machine Operator: ISABEL YUSUF ([id number]) [facility] [address] [place] [address] Chloride [Moles/Vol] 110 mmol/L High 98-107 [facility] Comment on above: Performed By: #### L [id number] #### Rope Twisting Machine Operator: ISABEL YUSUF ([id number]) [facility] ([facility]) [address] [place] [address] CO2 [Moles/Vol] 19 mmol/L Low 22-29 [facility] Comment on above: Performed By: #### L [id number] #### Rope Twisting Machine Operator: ISABEL YUSUF ([id number]) [facility] [address] [place] [address] Creatinine [Mass/Vol] 0.72 mg/dL Normal 0.57-1.11 [facility] Comment on above: Performed By: #### L [id number] #### Rope Twisting Machine Operator: ISABEL YUSUF ([id number]) [facility] ([facility]) [address] [place] [address] GLOMERULAR FILTRATION RATE ML/MIN/1.73 SQ M.PREDICTED >90.0 Normal >60.0 [facility] Comment on above: Result Comment: Calc ulation based on the Chronic Kidney Disease Epidemiology Collaboration (CKD-EPI) equation refit without adjustment for race Performed By: #### L [id number] #### Rope Twisting Machine Operator: ISABEL YUSUF ([id number]) [facility] ([facility]) [address] [place] [address] Glucose [Mass/Vol] 130 mg/dL High 74-100 [facility] Comment on above: Performed By: #### L [id number] #### Rope Twisting Machine Operator: ISABEL YUSUF ([id number]) [facility] ([facility]) [address] [place] [address] Potassium [Moles/Vol] 3.7 mmol/L Normal 3.5-5.1 [facility] Comment on above: Result Comment: [facility] potassium values may be up to 0.5 mmol/L lower than serum values. Performed By: #### L [id number] #### Rope Twisting Machine Operator: ISABEL YUSUF ([id number]) [facility] ([facility]) [address] [place] [address] Protein [Mass/Vol] 6.4 g/dL Normal 6.4-8.3 [facility] Comment on above: Performed By: #### L [id number] #### Rope Twisting Machine Operator: ISABEL YUSUF ([id number]) [facility] ([facility]) [address] [place] [address] Sodium [Moles/Vol] 136 mmol/L Normal 136-145 [facility] Comment on above: Performed By: #### L [id number] #### Rope Twisting Machine Operator: ISABEL YUSUF ([id number]) [facility] ([facility]) [address] [place] [address] Urea nitrogen [Mass/Vol] 9 mg/dL Normal 8-21 [facility] Comment on above: Performed By: #### L [id number] #### Rope Twisting Machine Operator: ISABEL YUSUF ([id number]) [facility] [address] [place] [address] Comprehensive metabolic 1998 panelon 06-15-2024 Albumin [Mass/Vol] 3.6 g/dL 3.5 - 5.0 g/dL [facility] ALP [Catalytic activity/Vol] 51 U/L 40 - 150 U/L [facility] ALT [Catalytic activity/Vol] 25 U/L NINF - 30 U/L [facility] Anion gap [Moles/Vol] 7 mmol/L 3 - 13 mmol/L [facility] AST [Catalytic activity/Vol] 21 U/L NINF - 34 U/L [facility] Bilirubin [Mass/Vol] 0.3 mg/dL NINF - 1.2 mg/dL [facility] Calcium [Mass/Vol] 8.6 mg/dL 8.4 - 10. 2 mg/dL [facility] Chloride [Moles/Vol] 110 mmol/L High 98 - 107 mmol/L [facility] CO2 [Moles/Vol] 19 mmol/L Low 22 - 29 mmol/L [facility] Creatinine [Mass/Vol] 0.72 mg/dL 0.57 - 1.11 mg/dL [facility] GFR/1.73 sq M.predicted (S/P/Bld) [Vol rate/Area] - PINF [facility] Comment on above: Calculation based on the Chronic Kidney Disease Epidemiology Collaboration (CKD-EPI) equation refit without adjustment for race Glucose [Mass/Vol] 130 mg/dL High 74 - 100 mg/dL [facility] Interpretation and review of laboratory results Abnormal [facility] Potassium [Moles/Vol] 3.7 mmol/L 3.5 - 5.1 mmol/L [facility] Comment on above: Plasma potassium jared ues may be up to 0.5 mmol/L lower than serum values. Protein [Mass/Vol] 6.4 g/dL 6.4 - 8.3 g/dL [facility] Sodium [Moles/Vol] 136 mmol/L 136 - 145 mmol/L [facility] Urea nitrogen [Mass/Vol] 9 mg/dL 8 - 21 mg/d L [facility] No Panel Informationon 06-15 Extra Tube Hold for add-ons. [facility] Comment on above: Auto resulted. [facility] URINE CULTUREon 06-15-2024 Bacteria identified Cx Nom (U) URINE CULTURE Reference No growth (<1,000 CFU/mL) [ S = SUSCEPTIBLE R = RESISTANT I = INTERMEDIATE S-DD = Susceptible-dose dependent NS = Non-susceptible NO = No Interpretation ] Normal [facility] Comment on above: Performed By: #### L [id number] #### Rope Twisting Machine Operator: ISABEL YUSUF ([id number]) [facility] ([address] 30on 06-14-2024 30 Problem: Pain - Adult Goal: Verbalizes/displays adequate comfort level or baseline comfort level Outcome: Progressing Problem: Safety - Adult Goal: Free from fall injury Outcome: Progressing Problem: Discharge Planning Goal: Discharge to home or other facility with appropriate resources Outcome: Progressing Problem: Chronic Conditions and Co-morbidities Goal: Patient's chronic conditions and co-morbidity symptoms are monitored and maintained or improved Outcome: Progressing Normal [facility] BASIC METABOLIC PANELon - Anion gap [Moles/Vol] 7 mmol/L Normal 3-13 [facility] Comment on above: Performed By: #### L [id number], [id number], [id number] ####Rope Twisting Machine Operator: ISABEL YUSUF ([id number])[facility] ([facility])[address] [place] [address] Calcium [Mass/Vol] 8.8 mg/dL Normal 8.4-10.2 [facility] Comment on above: Performed By: #### L AB15, [id number], [id number] ####Rope Twisting Machine Operator: ISABEL YUSUF ([id number])[facility] ([facility])[address] [place] [address] [place] Chloride [Moles/Vol] 106 mmol/L Normal 98-107 [facility] Comment on above: Performed By: #### L AB15, [id number], [id number] ####Rope Twisting Machine Operator: ISABEL YUSUF ([id number])[facility] ([facility])[address] [place] [address] [place] CO2 [Moles/Vol] 22 mmol/L Normal 22-29 [facility] Comment on above: Performed By: #### L AB15, [id number], [id number] ####Rope Twisting Machine Operator: ISABEL YUSUF ([id number])[facility] ([facility])[address] [place] [address] [place] Creatinine [Mass/Vol] 0.73 mg/dL Normal 0.57-1.11 [facility] Comment on above: Performed By: #### L AB15, [id number], [id number] ####Rope Twisting Machine Operator: ISABEL YUSUF ([id number])[facility] ([facility])[address] GLOMERULAR FILTRATION RATE ML/MIN/1.73 SQ M.PREDICTED >90.0 Normal >60.0 [facility] Comment on above: Result Comment: Calc ulation based on the Chronic Kidney Disease Epidemiology Collaboration (CKD-EPI) equation refit without adjustment for race Performed By: #### L AB15, [id number], [id number] ####Rope Twisting Machine Operator: ISABEL YUSUF ([id number])[facility]A DIEUDONNE RITTMAN ([facility])[address] [place] [address] [place] Glucose [Mass/Vol] 110 mg/dL High 74-100 [facility] Comment on above: Performed By: #### L AB15, [id number], [id number] ####Rope Twisting Machine Operator: ISABEL YUSUF ([id number])[facility] DIEUDONNE [facility]ITTMAN ([facility])[address] [place] [address] Potassium [Moles/Vol] 4.0 mmol/L Normal 3.5-5.1 [facility] Comment on above: Result Comment: [facility] potassium values may be up to 0.5 mmol/L lower than serum values. Performed By: #### L AB15, [id number], [id number] ####Rope Twisting Machine Operator: ISABEL YUSUF ([id number])[facility]ENTERJasmyn CRUZDIEUDONNE RITTMAN ([facility])[address] [place] [address] [place] Sodium [Moles/Vol] 135 mmol/L Low 136-145 [facility] Comment on above: Performed By: #### L AB15, [id number], [id number] ####Rope Twisting Machine Operator: ISABEL YUSUF ([id number])[facility] DIEUDONNE RITTMAN ([facility])[address] [place] [address] [place] Urea nitrogen [Mass/Vol] 10 mg/dL Normal 8-21 [facility] Comment on above: Performed By: #### L AB15, [id number], [id number] ####Rope Twisting Machine Operator: ISABEL YUSUF ([id number])[facility]ITAL[facility] ([facility])[address] Bacterial vaginosis and vagi nitis rRNA panel Probe (Vag fld)on 06-14-2024 Bacterial vaginosis Ql (Vag fld) [Interp] Not detected Not Detected [facility] C. glabrata DNA LATRICE+probe Ql (Vag fld) Not detected Not Detected [facility] Nicki sp DNA LATRICE+probe Ql (Vag fld) Detected Abnormal Not Detected [facility] Interpretation and review of laboratory results Abnormal [facility] T. vaginalis DNA LATRICE+probe Ql (Vag fld) Not detected Not Detected [facility] Methodology: real-time PCR A negative result does not preclude a possible infection. This assay can detect the Nicki species C. albicans, C. tropicalis, C. parapsilosis, and C. dubliniensis but does not differentiate among them. The assay also detects C. glabrata and C. krusei, but does not differentiate between them. Results should be interpreted in conjunction with other clinical data. This test has not been validated for use with specimens collected by patients at home. This test is intended for medical purposes only and is not valid for the evaluation of suspected sexual abuse or for other forensic purposes. [facility] Basic metabolic 1998 panelon 06-14-2024 Anion gap [Moles/Vol] 7 mmol/L 3 - 13 mmol/L [facility] Calcium [Mass/Vol] 8.8 mg/dL 8.4 - 10. 2 mg/dL [facility] Chloride [Moles/Vol] 106 mmol/L 98 - 107 mmol/L [facility] CO2 [Moles/Vol] 22 mmol/L 22 - 29 mmol/L [facility] Creatinine [Mass/Vol] 0.73 mg/dL 0.57 - 1.11 mg/dL [facility] GFR/1.73 sq M.predicted (S/P/Bld) [Vol rate/Area] - PINF [facility] Comment on above: Calculation based on the Chronic Kidney Disease Epidemiology Collaboration (CKD-EPI) equation refit without adjustment for race Glucose [Mass/Vol] 110 mg/dL High 74 - 100 mg/dL [facility] Interpretation and review of laboratory results Abnormal [facility] Potassium [Moles/Vol] 4 mmol/L 3.5 - 5.1 mmol/L [facility] Comment on above: Plasma potassium jared ues may be up to 0.5 mmol/L lower than serum values. Sodium [Moles/Vol] 135 mmol/L Low 136 - 145 mmol/L [facility] Urea nitrogen [Mass/Vol] 10 mg/dL 8 - 21 mg/d L [facility] CBC (HEMOGRAM)on 06-14-2024 Erythrocyte distribution width (RBC) [Ratio] 14.1 % Normal 11.5-15.0 [facility] Comment on above: Performed By: #### L [id number] #### Rope Twisting Machine Operator: ISABEL YUSUF ([id number]) [facility]) [address] [place] [address] Hematocrit (Bld) [Volume fraction] 30.8 % Low 35.0-47.0 [facility] Comment on above: Performed By: #### L [id number] #### Rope Twisting Machine Operator: ISABEL YUSUF ([id number]) [facility]) [address] [place] [address] Hemoglobin (Bld) [Mass/Vol] 10.5 g/dL Low 11.7-16.0 [facility] Comment on above: Performed By: #### L [id number] #### Rope Twisting Machine Operator: ISABEL YUSUF ([id number]) [facility]) [address] [place] [address] MCH (RBC) [Entitic mass] 26.4 pg Normal 26.0-34.0 [facility] [facility] Comment on above: Performed By: #### L [id number] #### Rope Twisting Machine Operator: ISABEL YUSUF ([id number]) [facility]) [address] [place] [address] MCHC 34.1 % Normal 30.5-36.0 [facility] Comment on above: Performed By: #### L [id number] #### Rope Twisting Machine Operator: ISABEL YUSUF ([id number]) [facility] ([facility]) [address] [place] [address] MCV (RBC) [Entitic vol] 77.6 fL Normal 77.0-99.0 [facility] Comment on above: Performed By: #### L [id number] #### Rope Twisting Machine Operator: ISABEL YUSUF ([id number]) [facility]) [address] [place] [address] Platelet mean volume (Bld) [Entitic vol] 8.5 fL Low 9.0-12.7 [facility] Comment on above: Result Comment: MPV is a calculated measurement using platelet volume ratio Performed By: #### L [id number] #### Rope Twisting Machine Operator: ISABEL YUSUF ([id number]) [facility] ([facility]) [address] [place] [address] Platelets (Bld) [#/Vol] 290 10*3/uL Normal 140-440 [facility] Comment on above: Performed By: #### L [id number] #### Rope Twisting Machine Operator: ISABEL YUSUF ([id number]) [facility] ([facility]) [address] [place] [address] RBC (Bld) [#/Vol] 3.97 10*6/uL Normal 3.80-5.20 [facility] Comment on above: Performed By: #### L [id number] #### Rope Twisting Machine Operator: ISABEL YUSUF ([id number]) [facility] ([facility]) [address] [place] [address] WBC (Bld) [#/Vol] 5.6 10*3/uL Normal 3.6-10.7 [facility] Comment on above: Performed By: #### L [id number] #### Rope Twisting Machine Operator: ISABEL YUSUF ([id number]) [facility] ([facility]) [address] [place] [address] CBC panel Auto (Bld)on 06-14 Erythrocyte distribution width (RBC) [Ratio] 14.1 % 11.5 - 15.0 % [facility] Hematocrit (Bld) [Volume fraction] 30.8 % Low 35.0 - 47.0 % [facility] Hemoglobin (Bld) [Mass/Vol] 10.5 g/dL Low 11.7 - 16.0 g/dL [facility] Interpretation and review of laboratory results Abnormal [facility] MCH (RBC) [Entitic mass] 26.4 pg 26.0 - 34.0 pg [facility] MCHC (RBC) [Mass/Vol] 34.1 % 30.5 - 36.0 % [facility] MCV (RBC) [Entitic vol] 77.6 fL 77.0 - 99.0 fL [facility] Platelet mean volume (Bld) [Entitic vol] 8.5 fL Low 9.0 - 12.7 fL [facility] Comment on above: MPV is a calculated measurement using platelet volume ratio Platelets (Bld) [#/Vol] 290 10*3/uL 140 - 440 10*3/uL [facility] RBC (Bld) [#/Vol] 3.97 10*6/uL 3.80 - 5.2 0 10*6/uL [facility] WBC (Bld) [#/Vol] 5.6 10*3/uL 3.6 - 10.7 10*3/uL [facility] CHLAMYDIA/GONORRHEAon 2024 CHLAMYDIA/GONORRHEA NEISSERIA GONORRHOEAE DNA PROBE Reference Not Detected Not Detected CHLAMYDIA TRACHOMATIS DNA PROBE Reference Not Detected Not Detected ORDER COMMENTS: Methodology: real-time PCR This test is intended for medical purposes only and is not intended for the evaluation of suspected sexual abuse or for other forensic purposes. In certain contexts, culture may be required to meet applicable laws and regulations for diagnosis of C. trachomatis and N. gonorrhoeae infections. Per 2014 CDC recommmendations, this test does not include confirmation of positive results by an alternative nucleic acid target. A negative result does not exclude the possibility of infection. A result of invalid indicates that a new specimen should be collected if clinically indicated. Normal [facility] Comment on above: Performed By: #### L [id number] #### Rope Twisting Machine Operator: ISABEL YUSUF ([id number]) [facility] ([facility]) [address] [place] [address] COMPLETE URINALYSISon 2024 BACTERIA (#/HPF) IN URINE Moderate Abnormal Negative [facility] Comment on above: Performed By: #### L [id number] #### Rope Twisting Machine Operator: ISABEL YUSUF ([id number]) [facility] ([facility]) [address] [place] [address] BILIRUBIN, TOTAL PRESENCE IN URINE Negative Normal Negative [facility] Comment on above: Performed By: #### L [id number] #### Rope Twisting Machine Operator: ISABEL YUSUF ([id number]) [facility] ([facility]) [address] [place] [address] Clarity (U) Clear Normal Clear [facility] Comment on above: Performed By: #### L [id number] #### Rope Twisting Machine Operator: ISABEL YUSUF ([id number]) [facility] ([facility]) [address] [place] [address] Color (U) Yellow Normal Lt. Yellow [facility] Comment on above: Performed By: #### L [id number] #### Rope Twisting Machine Operator: ISABEL YUSUF ([id number]) [facility] ([facility]) [address] [place] [address] GLUCOSE (MG/DL) IN URINE Normal Normal Normal (<70 ) [facility] Comment on above: Performed By: #### L [id number] #### Rope Twisting Machine Operator: ISABEL YUSUF ([id number]) [facility] ([facility]) [address] [place] [address] HEMOGLOBIN PRESENCE IN URINE Negative Normal Negative [facility] Comment on above: Performed By: #### L [id number] #### Rope Twisting Machine Operator: ISABEL YUSUF ([id number]) [facility] ([facility]) [address] [place] [address] Ketones Ql (U) Negative Normal Negative [facility] Comment on above: Performed By: #### L [id number] #### Rope Twisting Machine Operator: ISABEL YUSUF ([id number]) [facility] ([facility]) [address] [place] [address] LEUKOCYTE ESTERASE PRESENCE IN URINE BY TEST STRIP 25 Herrera/uL Abnormal Negative [facility] Comment on above: Performed By: #### L [id number] #### Rope Twisting Machine Operator: ISABEL YUSUF ([id number]) [facility] ([facility]) [address] [place] [address] [place] MUCUS (#/LPF) IN URINE SEDIMENT Few Normal Negative [facility] Comment on above: Performed By: #### L [id number] #### Rope Twisting Machine Operator: ISABEL YUSUF ([id number]) [facility] ([facility]) [address] [place] [address] NITRITE PRESENCE IN URINE Negative Normal Negative [facility] Comment on above: Performed By: #### L [id number] #### Rope Twisting Machine Operator: ISABEL YUSUF ([id number]) [facility] ([facility]) [address] [place] [address] pH (U) 6.0 [pH] Normal 5.0-8.0 [facility] Comment on above: Performed By: #### L [id number] #### Rope Twisting Machine Operator: ISABEL YUSUF ([id number]) [facility] ([facility]) [address] [place] [address] Protein (U) [Mass/Vol] 20 mg/dL Abnormal Negative [facility] Comment on above: Performed By: #### L [id number] #### Rope Twisting Machine Operator: ISABEL YUSUF ([id number]) [facility] [address] [place] [address] [place] RBC (#/HPF) IN URINE SEDIMENT Negative Normal 0-2 [facility] Comment on above: Performed By: #### L [id number] #### Rope Twisting Machine Operator: ISABEL YUSUF ([id number]) [facility] ([facility]) [address] [place] [address] Specific gravity (U) [Rel density] 1.024 Normal 1.005-1.030 [facility] Comment on above: Performed By: #### L [id number] #### Rope Twisting Machine Operator: ISABEL YUSUF ([id number]) [facility] ([facility]) [address] [place] [address] Specimen volume (U) 12 mL Normal [facility] Comment on above: Performed By: #### L [id number] #### Rope Twisting Machine Operator: ISABEL YUSUF ([id number]) [facility] ([facility]) [address] [place] [address] SQUAMOUS EPITHELIAL CELLS (#/HPF) IN URINE SEDIMENT 3-5 Normal 3-5 [facility] Comment on above: Performed By: #### L [id number] #### Rope Twisting Machine Operator: ISABEL YUSUF ([id number]) [facility] [address] [place] [address] UROBILINOGEN (MG/DL) IN URINE Normal Normal Normal (0-1) [facility] Comment on above: Performed By: #### L [id number] #### Rope Twisting Machine Operator: ISABEL YUSUF ([id number]) [facility] [address] [place] [address] WBC (LEUKOCYTE) (#/HPF) IN URINE SEDIMENT 0-2 Normal 0-5 [facility] Comment on above: Performed By: #### L [id number] #### Rope Twisting Machine Operator: ISABEL YUSUF ([id number]) [facility] ([facility]) [address] [place] [address] Consulton 06-14-2024 Consult ---- Attestation signed by Karrie Velásquez DO at 06/14/2024 5:52 PM Hospital Care (Present): I was present with the resident during the history and exam. I discussed the case with the resident and agree with the findings and plan as documented in the resident's note. ---- J2EE CONSULTANT Consult Patient Name: Sumit Green Patient : 2005 Room/Bed: 21/21 Admission Date/Time: 06/14/2024 1:25 AM Primary Care Physician: Jeremy Vásquez HPI: Sumit Green is a 18 y.o. female presented to the [place] emergency department after having suprapubic pain for the past 3 to 4 days and new onset flank pain with syncopal episodes at work and home. Patient also having vaginal discharge that she thought was yeast infection. hCG collected with +17,000. UA was positive for moderate bacteria and abdominal exam was positive for suprapubic pain and CVA tenderness. Patient received Rocephin prior to transfer [facility] for further evaluation Patient was transferred to [facility] for transvaginal ultrasound that showed gestational sac measuring approximately 13mm with estimated gestational age of 6 weeks 1 day noted a 1.8 cm subchorionic hemorrhage. Based on clinical exam and urinalysis concern for pyelonephritis and early Patient also reported that she had concerned of a yeast infection and has been using Monistat cream for a few days. Vaginitis panel upon admission was also positive for Nicki. LMP 05/09/24 REVIEW OF SYSTEMS: A minimum of an eleven point review of systems was completed. Review of Systems Constitutional: Negative for chills and fever. Cardiovascular: Negative for chest pain. Gastrointestinal: Negative for abdominal pain, nausea and vomiting. Genitourinary: Positive for dysuria and pelvic pain. Negative for vaginal bleeding, vaginal discharge and vaginal pain. Neurological: Negative for weakness. Social History: TOBACCO: reports that she has never smoked. She has never used smokeless tobacco. ETOH: reports no history of alcohol use. GYNECOLOGICAL HISTORY: Menstrual History: Regular menses, LMP 05/09 Sexually Active: single partner, contraception - none STD History: no past history Pap History: Not applicable Contraception: no method OBSTETRICAL HISTORY: OB History Para Term AB Living 1 0 0 0 0 0 SAB IAB Ectopic Multiple Live Births 0 0 0 0 0 # Outcome Date GA Lbr Morales/2nd Weight Sex Type Anes PTL Lv 1 Current PAST MEDICAL HISTORY: History reviewed. No pertinent past medical history. PAST SURGICAL HISTORY: History reviewed. No pertinent surgical history. ALLERGIES: No Known Allergies MEDICATIONS: No current facility-administer ed medications for this encounter. Current Outpatient Medications: albuterol 108 (90 Base) MCG/ACT inhaler, Inhale 2 puffs every 4 hours as needed for wheezing., Disp: 18 g, Rfl: 0 FAMILY HISTORY: family history is not on file. SOCIAL HISTORY: Social Connections: Not on file Medications: Current Inpatient No current facility-administer ed medications for this encounter. Current Outpatient Medications Medication Sig Dispense Refill albuterol 108 (90 Base) MCG/ACT inhaler Inhale 2 puffs every 4 hours as needed for wheezing. 18 g 0 VITALS: BP 105/74 (BP Location: Right arm, Patient Position: Lying) Pulse 77 Temp 36.7 ?C (98.1 ?F) (Temporal) Resp 16 Ht 5' 5 (1.651 m) Wt 106 lb (48.1 kg) SpO2 99% BMI 17.64 kg/m? PHYSICAL EXAM: Physical Exam Constitutional: Appearance: Normal appearance. HENT: Head: Normocephalic. Eyes: Extraocular Movements: Extraocular movements intact. Cardiovascular: Rate and Rhythm: Normal rate. Pulmonary: Effort: Pulmonary effort is normal. Abdominal: General: Abdomen is flat. There is no distension. Palpations: Abdomen is soft. Tenderness: There is abdominal tenderness. There is no guarding or rebound. Comments: Suprapubic tenderness Musculoskeletal: Cervical back: Normal range of motion. Neurological: General: No focal deficit present. Mental Status: She is alert and oriented to person, place, and time. Psychiatric: Mood and Affect: Mood normal. LAB RESULTS: Lab Results Component Value Date WBC 5.6 06/14/2024 HGB 10.5 (L) 06/14/2024 HCT 30.8 (L) 06/14/2024 MCV 77.6 06/14/2024 PLT 290 06/14/2024 Lab Results Component Value Date NA 135 (L) 06/14/2024 K 4.0 06/14/2024 CL 106 06/14/2024 CO2 22 06/14/2024 BUN 10 06/14/2024 CREATININE 0.73 06/14/2024 GLUCOSE 110 (H) 06/14/2024 CALCIUM 8.8 06/14/2024 Urinalysis: Clarity, Urine Date Value Ref Range Status 06/14/2024 Clear Clear Final Color, Urine Date (more content not included)... Normal [facility] ECG 12-LEADon 06-14-2024 ECG 12-LEAD IMPRESSION: Sinus rhythm Borderline right axis deviation Electronically Signed On 06-14-2024 13:33:02 EST by Omar Dupree [facility] ED Nursing Noteon 06-14-2024 ED Nursing Note Phoned [facility] ED. Hand off report given to charge nurse. Normal [facility] ED Nursing Note Transfer papers given to patient with instructions on how to get to [facility] ED. Patient verbalized understanding. Normal [facility] ED Nursing Note Patient arrived ambulatory to room 2 without difficulty. Patient complains of dizziness yesterday and passed out for a couple of seconds. Patient also complains of vaginal itching, swelling and pain x 3 days. Normal [facility] ED Provider Noteon ED Provider Note Emergency Department Encounter [facility] EMERGENCY DEPT Patient: Sumit Green : 2005 Date of Evaluation: 06/14/2024 ED Supervising Physician: Omar Dupree MD I independently examined and evaluated Sumit Green. This will serve as my Supervisory note and shared attestation. I did perform a substantive portion of the visit including all aspects of the Medical Decision Making. I wore appropriate PPE for the entirety of this encounter. In brief, Sumit Green is a 18 y.o. that presents to the emergency department as a transfer from [facility] for suspected pyelonephritis. Brief ED course/MDM: Patient evaluated here by J2EE CONSULTANT. Recommend admission to medicine and continued antibiotics. Admitted to [facility]. Diagnoses as of 06/14/24 0717 Pyelonephritis affecting , antepartum I personally saw the patient and made/approved the management plan and take responsibility for the patient management. All diagnostic, treatment, and disposition decisions were made by myself in conjunction with the resident. For all further details of the patient's emergency department visit, please see their documentation. (Comment: Please note this report has been produced using speech recognition software and may contain errors related to that system including errors in grammar, punctuation, and spelling, as well as words and phrases that may be inappropriate. If there are any questions or concerns please feel free to contact the dictating provider for clarification.) Omar Dupree MD [employer] Omar Dupree MD 06/14/24 0858 [facility] ED Provider Note EMERGENCY DEPARTMENT ENCOUNTER Pt Name: Sumit Green Birthdate 2005 Date of evaluation: 06/14/2024 ED Provider: Abiodun Whitman DO CHIEF COMPLAINT Chief Complaint Patient presents with Dizziness Vaginal Itching HISTORY OF PRESENT ILLNESS (Location/Symptom, Timing/Onset, Context/Setting, Quality, Duration, Modifying Factors, Severity) Note limiting factors. I wore appropriate PPE for the entirety of this encounter. HPI Sumit Grene is a 18 y.o. female who presents to the emergency department from [facility] with concerns for pyelonephritis in . Went to OSH for syncope x 2 last night. Found to have UA concerning for possible UTI. Urine and serum bHCG positive. Discussed with OB who recommended transfer for pelvic US. Given CFTX prior to transfer. Patient reports suprapubic and LLQ abdominal pain. Also with right sided flank pain. Reports nausea but no vomiting. Denies SOB, chest pain, palpitations, vaginal bleeding, and diarrhea. Nursing Notes were reviewed. Limitations to history: None Outside historians: [facility] REVIEW OF SYSTEMS Review of Systems As noted in HPI PAST MEDICAL HISTORY History reviewed. No pertinent past medical history. SURGICAL HISTORY History reviewed. No pertinent surgical history. CURRENT MEDICATIONS Current Discharge Medication List CONTINUE these medications which have NOT CHANGED Details albuterol 108 (90 Base) MCG/ACT inhaler Inhale 2 puffs every 4 hours as needed for wheezing. Qty: 18 g, Refills: 0 ALLERGIES Patient has no known allergies. FAMILY HISTORY No family history on file. SOCIAL HISTORY Social History Socioeconomic History Marital status: Single Tobacco Use Smoking status: Never Smokeless tobacco: Never Vaping Use Vaping status: Every Day Substance and Sexual Activity Alcohol use: Never Drug use: Never SCREENINGS [place] Coma Scale Best Eye Response: Spontaneous Best Verbal Response: Oriented Best Motor Response: Follows commands [place] Coma Scale Score: 15 PHYSICAL EXAM ED Triage Vitals [06/14/24 0122] Temp Heart Rate Resp BP 36.4 ?C (97.5 ?F) 94 16 114/70 SpO2 Temp Source Heart Rate Source Patient Position 100 % Temporal Monitor Sitting BP Location FiO2 (%) Right arm -- Physical Exam Vitals and nursing note reviewed. Constitutional: General: She is not in acute distress. Appearance: She is normal weight. She is not toxic-appearing. HENT: Head: Normocephalic and atraumatic. Right Ear: External ear normal. Left Ear: External ear normal. Nose: Nose normal. Mouth/Throat: Mouth: Mucous membranes are moist. Pharynx: Oropharynx is clear. Eyes: Extraocular Movements: Extraocular movements intact. Conjunctiva/sclera: Conjunctivae normal. Pupils: Pupils are equal, round, and reactive to light. Cardiovascular: Rate and Rhythm: Normal rate and regular rhythm. Pulses: Normal pulses. Heart sounds: Normal heart sounds. Pulmonary: Effort: Pulmonary effort is normal. Breath sounds: Normal breath sounds. Abdominal: General: Abdomen is flat. There is no distension. Palpations: Abdomen is soft. Tenderness: There is abdominal tenderness (suprapubic and LLQ). There is right CVA tenderness. There is no left CVA tenderness or guarding. Musculoskeletal: General: Normal range of motion. Cervical back: Normal range of motion and neck supple. Skin: General: Skin is warm and dry. Capillary Refill: Capillary refill takes less than 2 seconds. Neurological: General: No focal deficit present. Mental Status: She is alert. DIAGNOSTIC RESULTS Procedures/EKG: EKG was reviewed by myself. Physician EKG interpretation can be found in [facility] RADIOLOG[facility] (Per Emergency Physician): Interpretation per the Radiologist below, if available at the time of this note: US pelvis transvaginal Final Result Probable intrauterine gestational sac at proximal 6 weeks, 1 day gestational age. No pole is visualized. 1.8 cm subchorionic hemorrhage. Ectopic is not entirely excluded and follow-up beta-hCG and pelvic ultrasound are suggested. Report Dictated on Electronically Signed By: Suhail Card DO Electronically Signed Date/Time: 06/14/2024 6:45 AM EST ED BEDSIDE ULTRASOUND: Performed by ED Physician - none LABS: Labs Reviewed VAGINITIS PANEL MVP PCR - Abnormal Result Value Bacterial Vaginosis Not Detected Nicki spp Detected (*) Nicki glabrata/krusei Not Detected Trichomonas Vaginalis Not Detected Narrative: Methodology: real-time PCR A negative result does not preclude a possible infection. This assay can detect the Nicki species C. albicans, C. tropicalis, C. parapsilosis, and C. dubliniensis but does not differentiate among them. The assay also detects C. glabrata and C. krusei, but does not differentiate between them. Results should be interpreted in conjunction with other cl (more content not included)... [facility] ED Provider Note EMERGENCY DEPARTMENT ENCOUNTER Pt Name: Sumit Green Birthdate 2005 Date of evaluation: 06/14/2024 ED Provider: Zahira Graham DO CHIEF COMPLAINT Chief Complaint Patient presents with Dizziness Vaginal Itching HISTORY OF PRESENT ILLNESS (Location/Symptom, Timing/Onset, Context/Setting, Quality, Duration, Modifying Factors, Severity) Note limiting factors. I wore appropriate PPE for the entirety of this encounter. HPI Sumit Green is a 18 y.o. who presents to the emergency department with chief complaint of dysuria, urinary frequency and urgency for the last 3 days. Patient also had an episode of syncope earlier today. States that she was walking up the stairs when she had tunnel vision and felt numb all over. She had ringing in her ears and then lost consciousness in the bathroom while going to the bathroom. Denies any chest pain or shortness of breath. No fevers or chills. No nausea or vomiting. Does have some suprapubic abdominal pain. Also reports some back pain right greater than left. Nursing Notes were reviewed. Limitations to history: None Outside historians: None REVIEW OF SYSTEMS Review of Systems Pertinent positives and negatives as per HPI. PAST MEDICAL HISTORY History reviewed. No pertinent past medical history. SURGICAL HISTORY History reviewed. No pertinent surgical history. CURRENT MEDICATIONS Current Discharge Medication List CONTINUE these medications which have NOT CHANGED Details albuterol 108 (90 Base) MCG/ACT inhaler Inhale 2 puffs every 4 hours as needed for wheezing. Qty: 18 g, Refills: 0 ALLERGIES Patient has no known allergies. FAMILY HISTORY No family history on file. SOCIAL HISTORY Social History Socioeconomic History Marital status: Single Tobacco Use Smoking status: Never Smokeless tobacco: Never Vaping Use Vaping status: Every Day Substance and Sexual Activity Alcohol use: Never Drug use: Never SCREENINGS [place] Coma Scale Best Eye Response: Spontaneous Best Verbal Response: Oriented Best Motor Response: Follows commands [place] Coma Scale Score: 15 PHYSICAL EXAM ED Triage Vitals Temp Pulse Resp BP -- -- -- -- SpO2 Temp src Heart Rate Source Patient Position -- -- -- -- BP Location FiO2 (%) -- -- Physical Exam Constitutional: Well-developed and well-nourished. No distress. HENT: Mucous membranes moist Cardiovascular: Regular rate and rhythm. No abnormal heart sounds heard. Pulmonary/Chest: Effort normal with no conversational dyspnea. Clear to auscultation bilaterally. Abdominal: Soft. Suprapubic abdominal tenderness. No distension or guarding. Bilateral CVA tenderness to palpation, right greater than left Musculoskeletal: Normal range of motion of all extremities Neuro: No focal deficit Skin: Skin is warm and dry. Psychiatric: Normal mood and affect. DIAGNOSTIC RESULTS Procedures/EKG: EKG was reviewed by myself. Physician EKG interpretation can be found in [facility] RADIOLOGY (Per Emergency Physician): Interpretation per the Radiologist below, if available at the time of this note: No orders to display ED BEDSIDE ULTRASOUND: Performed by ED Physician - none LABS: Labs Reviewed BASIC METABOLIC PANEL - Abnormal Result Value SODIUM 135 (*) POTASSIUM 4.0 CHLORIDE 106 CARBON DIOXIDE 22 UREA NITROGEN 10 CREATININE 0.73 GLUCOSE 110 (*) CALCIUM 8.8 ANION GAP 7 eGFR >90.0 CBC (HEMOGRAM) - Abnormal Auto WBC 5.6 RBC 3.97 Hemoglobin 10.5 (*) Hematocrit 30.8 (*) MCV 77.6 MCH 26.4 MCHC 34.1 RDW 14.1 Platelets 290 MPV 8.5 (*) COMPLETE URINALYSIS - Abnormal Color, Urine Yellow Clarity, Urine Clear pH, Urine 6.0 Leukocytes, Urine 25 (*) Nitrite, Urine Negative Protein, Urine 20 (*) Glucose, Urine Normal Bilirubin, Urine Negative Ketones, Urine Negative Urobilinogen, Urine Normal Blood, Urine Negative Volume, Urine 12 mL RBC, Urine Negative WBC, Urine 0-2 Squamous Epithelial, Urine 3-5 Bacteria, Urine Moderate (*) Mucus, Urine Few SPECIFIC GRAVITY OF URINE (NUMERIC) 1.024 VAGINITIS PANEL MVP PCR COMPLETE URINALYSIS WITH REFLEX TO CULTURE Narrative: The following orders were created for panel order Urinalysis complete with reflex to Culture. Procedure Abnormality Status --------- ------ Complete Urinalysis[[id number]] Abnormal Final result Please view results for these tests on the individual orders. HCG QUALITATIVE URINE HCG,URINE QUAL Positive Narrative: is the most common reason for HCG in urine, although choriocarcinoma, hydatidiform mole, and certain nontrophoblastic malignancies also result in detectable urinary HCG levels. Sensitivity = 20mIU/mL. HCG QUANTITATIVE BLOOD HCG QUANTITATIVE 17,685.3 Narrative: Values in should double every 2 to 3 days for the first 6 weeks. Elevated concentrations of human chorionic gonadotr (more content not included)... Normal [facility] HCG QUALITATIVE URINEon 05-27 Beta HCG ( test) Ql (U) Positive Normal Negative [facility] Comment on above: Result Comment: IRENA Chairez COMMENTS: is the most common reason for HCG in urine, although choriocarcinoma, hydatidiform mole, and certain nontrophoblastic malignancies also result in detectable urinary HCG levels. Sensitivity = 20mIU/mL. Performed By: #### L [id number] #### Rope Twisting Machine Operator: ISABEL YUSUF ([id number]) [facility] ([facility]) [address] [place] [address] HCG QUANTITATIVE BLOODon HCG QUANTITATIVE 45622.3 mIU/mL Normal Females <5 [facility] Comment on above: Result Comment: IRENA Chairez COMMENTS: Values in should double every 2 to 3 days for the first 6 weeks. Elevated concentrations of human chorionic gonadotropin (hCG) measured in the first trimester of are observed in normal , but may serve as an indication of chorionic carcinoma, hydatiform mole, or multiple . Decreasing hCG concentrations indicate threatened or missed , recent termination of , ectopic , gestosis or intrauterine . Mel- and postmenopausal females may have detectable hCG concentrations (< or = to 14 mIU/mL) due to pituitary production of hCG. Serum follicle-stimulating hormone measurement may aid in ruling-out in this population. Cutoffs of greater than 20 to 45 mIU/mL have been suggested and are method dependent. False-elevations (called phantom human chorionic gonadotropin: hCG) may occur with patients who have human antianimal or heterophilic antibodies. Some specimens may not dilute linearly due to abnormal forms of hCG. Elevated hCG concentrations not associated with are found in patients with other diseases such as tumors of the germ cells, ovaries, bladder, pancreas, stomach, lungs, and liver. This test is not intended to detect or monitor tumors or gestational trophoblastic disease. Performed By: #### L [id number], [id number], [id number] ####Rope Twisting Machine Operator: ISABEL YUSUF ([id number])[facility] ([facility])[address] [place] [address] HEPATITIS C ANTIBODYon 06-14 HCV Ab IA Ql Not detected Normal Not Detected [facility] Comment on above: Result Comment: Jina ents with DETECTED Hepatitis C Ab results should have a new specimen submitted for supplemental testing with a Hepatitis C Quantitative RNA assay (viral load), if clinically indicated. Performed By: #### L [id number] #### Rope Twisting Machine Operator: ISABEL YUSUF ([id number]) [facility] ([facility]) [address] [place] [address] HIV1,2 COMBO ANTIGEN-ANTIBOD Y SCREENon 06-14-2024 HIV 1,2 COMBO ANTIGEN/ANTIBODY Non-Reactive Normal Nonreactive [facility] Comment on above: Result Comment: The specimen was non-reactive for HIV-1 and HIV-2 antibodies and p24 antigen using an FDA-cleared 4th generation HIV test. Based on this non-reactive screen result, further reflexive testing was not indicated and was, therefore, not performed. Performed By: #### L [id number] #### Rope Twisting Machine Operator: ISABEL YUSUF ([id number]) [facility] ([facility]) [address] [place] [address] Laboratory - Chemistry and C hemistry - challengeon 06-14-2024 Procalcitonin [Mass/Vol] 0.03 ng/mL ZOILA F - 0.07 ng/[place] [address].3 m[IU]/mL Fema les <5 mIU/mL [facility] Laboratory - Chemistry and C hemistry - challengeOrdered By: Melony Woodson on 06-14-2024 Beta HCG ( test) Ql Positive Negative [facility] Beta HCG ( test) Ql (U) is the most common reason for HCG in urine, although choriocarcinoma, hydatidiform mole, and certain nontrophoblastic malignancies also result in detectable urinary HCG levels. Sensitivity = 20mIU/mL. [facility] Laboratory - Microbiology an d Antimicrobial susceptibilityon 06-14-2024 HCV Ab IA Ql Not detected Not Detected [facility] Comment on above: Patients with DETECT ED Hepatitis C Ab results should have a new specimen submitted for supplemental testing with a Hepatitis C Quantitative RNA assay (viral load), if clinically indicated. HIV 1+2 Ab+HIV1 p24 Ag IA Ql Non-Reactive Nonreactive [facility] Comment on above: The specimen was non -reactive for HIV-1 and HIV-2 antibodies and p24 antigen using an FDA-cleared 4th generation HIV test. Based on this non-reactive screen result, further reflexive testing was not indicated and was, therefore, not performed. N. gonorrhoeae DNA LATRICE+probe Ql (Cervical mucus)on 06-14-2024 C. trachomatis DNA LATRICE+probe Ql (Unsp spec) Not detected Not Detected [facility] Interpretation and review of laboratory results Normal [facility] N gonorrhoeae, DNA Probe Not detected Not Detec génesis [facility] Methodology: real-time PCR This test is intended for medical purposes only and is not intended for the evaluation of suspected sexual abuse or for other forensic purposes. In certain contexts, culture may be required to meet applicable laws and regulations for diagnosis of C. trachomatis and N. gonorrhoeae infections. Per 2014 CDC recommmendations, this test does not include confirmation of positive results by an alternative nucleic acid target. A negative result does not exclude the possibility of infection. A result of invalid indicates that a new specimen should be collected if clinically indicated. [facility] No Panel Informationon 06-14 Interpretation and review of laboratory results Normal [facility] P Willis 2 degrees [facility] Interval 116 ms [facility] QRS Willis 96 degrees [facility] QRSD [facility]val [facility]val 390 ms [facility] QTC Interval 444 ms [facility] T Wave Willis 21 degrees [facility] Sinus rhythm Borderline right axis deviation Electronically Signed On 06-14-2024 13:33:02 EST by Omar Omar Westbrook MD - 06/14/2024 IMPRESSION: Sinus rhythm Borderline right axis deviation Electronically Signed On 06-14-2024 13:33:02 EST by Omar Dupree [facility] Values in should double every 2 to 3 days for the first 6 weeks. Elevated concentrations of human chorionic gonadotropin (hCG) measured in the first trimester of are observed in normal , but may serve as an indication of chorionic carcinoma, hydatiform mole, or multiple . Decreasing hCG concentrations indicate threatened or missed , recent termination of , ectopic , gestosis or intrauterine . Mel- and postmenopausal females may have detectable hCG concentrations (< or = to 14 mIU/mL) due to pituitary production of hCG. Serum follicle-stimulatin g hormone measurement may aid in ruling-out in this population. Cutoffs of greater than 20 to 45 mIU/mL have been suggested and are method dependent. False-elevations (called phantom human chorionic gonadotropin: hCG) may occur with patients who have human antianimal or heterophilic antibodies. Some specimens may not dilute linearly due to abnormal forms of hCG. Elevated hCG concentrations not associated with are found in patients with other diseases such as tumors of the germ cells, ovaries, bladder, pancreas, stomach, lungs, and liver. This test is not intended to detect or monitor tumors or gestational trophoblastic disease. [facility] No Panel InformationOrdered By: Melony Woodson on 06-14-2024 [facility] PROCALCITONIN TESTon 025 PROCALCITONIN 0.03 ng/mL Normal <0.07 [facility] Comment on above: Result Comment: IRENA Chairez COMMENTS: PCT <0.50 = Low risk of severe sepsis and/or septic shock. PCT >2.00 = High risk of severe sepsis and/or septic shock. Performed By: #### L [id number], [id number], [id number] ####Rope Twisting Machine Operator: IASBEL YUSUF ([id number])[facility] ([facility])[address] [place] [address] Procalcitonin [Mass/Vol]on 06-14-2024 Interpretation and review of laboratory results Normal [facility] PCT <0.50 = Low risk of severe sepsis and/or septic shock. PCT >2.00 = High risk of severe sepsis and/or septic shock. [facility] US PELVIS TRANSVAGINALon US PELVIS TRANSVAGINAL [facility] 2005 [id number] Exam Date/Time: 06/14/2024 05:38 Procedure: US PELVIS TRANSVAGINAL Ordering Provider: IVAN STEPHEN Reason For Exam: Pain/positive /quant [id number] EXAM TYPE: US PELVIS TRANSVAGINAL EXAM DATE AND TIME: 06/14/2024 5:38 AM EST INDICATION: 18 years Female with . LMP is 05/09/2024. Beta-hCG level is 17,685 mIu/ml. COMPARISON: None. TECHNIQUE: Ultrasonographic evaluation of the pelvis was performed including color flow and spectral Doppler imaging. FINDINGS: UTERUS: Uterus is anteverted and measures 9.3 x 6 x 5.3 cm. Gestation(s): Single, saclike structure containing yolk sac. No pole is identified. Estimated gestational age of 6 weeks, 1 day based on 13 mm gestational sac diameter. No pole is visualized. heart motion: No heart tones. Subchorionic hemorrhage: 1.8 x 0.7 x 0.5 cm. Cervix: 4.6cm in length and closed. ADNEXA / OVARIES: No adnexal mass seen. Right ovary: 2.8 x 2.3 x 2 cm. Normal in size. Normal Doppler flow. Left ovary: 2.7 x 1.8 x 2.2 cm. Normal in size. Normal Doppler flow. FREE FLUID: Trace pelvic free fluid. IMPRESSION: Probable intrauterine gestational sac at proximal 6 weeks, 1 day gestational age. No pole is visualized. 1.8 cm subchorionic hemorrhage. Ectopic is not entirely excluded and follow-up beta-hCG and pelvic ultrasound are suggested. Report Dictated on Electronically Signed By: Suhail Card DO Electronically Signed Date/Time: 06/14/2024 6:45 AM EST Normal [facility] US Pelvis transvaginalon Probable intrauterine gestational sac at proximal 6 weeks, 1 day gestational age. No pole is visualized. 1.8 cm subchorionic hemorrhage. Ectopic is not entirely excluded and follow-up beta-hCG and pelvic ultrasound are suggested. Report Dictated on Electronically Signed By: Suhail Card DO Electronically Signed Date/Time: 06/14/2024 6:45 AM EST [facility] Patient Name: SUMIT GREEN : 2005 Exam Date/Time: 06/14/2024 05:38 Procedure: US PELVIS TRANSVAGINAL Ordering Provider: IVAN STEPHEN Reason For Exam: Pain/positive /quant [id number] EXAM TYPE: US PELVIS TRANSVAGINAL EXAM DATE AND TIME: 06/14/2024 5:38 AM EST INDICATION: 18 years Female with . LMP is 05/09/2024. Beta-hCG level is 17,685 mIu/ml. COMPARISON: None. TECHNIQUE: Ultrasonographic evaluation of the pelvis was performed including color flow and spectral Doppler imaging. FINDINGS: UTERUS: Uterus is anteverted and measures 9.3 x 6 x 5.3 cm. Gestation(s): Single, saclike structure containing yolk sac. No pole is identified. Estimated gestational age of 6 weeks, 1 day based on 13 mm gestational sac diameter. No pole is visualized. heart motion: No heart tones. Subchorionic hemorrhage: 1.8 x 0.7 x 0.5 cm. Cervix: 4.6cm in length and closed. ADNEXA / OVARIES: No adnexal mass seen. Right ovary: 2.8 x 2.3 x 2 cm. Normal in size. Normal Doppler flow. Left ovary: 2.7 x 1.8 x 2.2 cm. Normal in size. Normal Doppler flow. FREE FLUID: Trace pelvic free fluid. [facility] Suhail Card DO - 06/14/2024 Patient Name: SUMIT GREEN : 2005 Exam Date/Time: 06/14/2024 05:38 Procedure: US PELVIS TRANSVAGINAL Ordering Provider: IVAN STEPHEN Reason For Exam: Pain/positive /quant [id number] EXAM TYPE: US PELVIS TRANSVAGINAL EXAM DATE AND TIME: 06/14/2024 5:38 AM EST INDICATION: 18 years Female with . LMP is 05/09/2024. Beta-hCG level is 17,685 mIu/ml. COMPARISON: None. TECHNIQUE: Ultrasonographic evaluation of the pelvis was performed including color flow and spectral Doppler imaging. FINDINGS: UTERUS: Uterus is anteverted and measures 9.3 x 6 x 5.3 cm. Gestation(s): Single, saclike structure containing yolk sac. No pole is identified. Estimated gestational age of 6 weeks, 1 day based on 13 mm gestational sac diameter. No pole is visualized. heart motion: No heart tones. Subchorionic hemorrhage: 1.8 x 0.7 x 0.5 cm. Cervix: 4.6cm in length and closed. ADNEXA / OVARIES: No adnexal mass seen. Right ovary: 2.8 x 2.3 x 2 cm. Normal in size. Normal Doppler flow. Left ovary: 2.7 x 1.8 x 2.2 cm. Normal in size. Normal Doppler flow. FREE FLUID: Trace pelvic free fluid. IMPRESSION: Probable intrauterine gestational sac at proximal 6 weeks, 1 day gestational age. No pole is visualized. 1.8 cm subchorionic hemorrhage. Ectopic is not entirely excluded and follow-up beta-hCG and pelvic ultrasound are suggested. Report Dictated on Electronically Signed By: Suhail Card DO Electronically Signed Date/Time: 06/14/2024 6:45 AM [facility] Radiology Study observation (narrative) [facility] US Pelvis transvaginalOrdere d By: Suhail Card on 06-14-2024 [facility] [employer] Work Phone: US RETROPERITONEALon 025 US RETROPERITONEAL Patient Name: SUMIT GREEN : 2005 Exam Date/Time: 06/14/2024 13:17 Procedure: US RETROPERITONEAL Ordering Provider: DUPREE JONATHAN Reason For Exam: UTI in concerning for pyelonephritis RENAL ULTRASOUND CLINICAL INDICATION: UTI in concerning for pyelonephritis Sonographic images of the bilateral kidneys and bladder were obtained. COMPARISON: None. FINDINGS: RIGHT KIDNEY: Size: 11.0 x 5.0 x 3.8 cm Cortex: Normal cortical thickness and echogenicity. Hydronephrosis: None Calculi or Cysts: None LEFT KIDNEY: Size: 9.2 x 4.5 x 4.8 cm Cortex: Normal cortical thickness and echogenicity. Hydronephrosis: None Calculi or Cysts: None BLADDER: The bladder is nondistended and not well evaluated.. Other: No mass or fluid collection is seen adjacent to the kidneys. IMPRESSION: Within limits of the examination, unremarkable exam Report Dictated on Electronically Signed By: Marcos Faye MD Electronically Signed Date/Time: 06/14/2024 1:53 PM EST [facility] US Retroperitoneumon 025 Within limits of the examination, unremarkable exam Report Dictated on Electronically Signed By: Marcos Faye MD Electronically Signed Date/Time: 06/14/2024 1:53 PM [facility] SUMIT [facility]EN [facility] 2005 [id number] Exam Date/Time: 06/14/2024 13:17 Procedure: US RETROPERITONEAL Ordering Provider: DUPREE JONATHAN Reason For Exam: UTI in concerning for pyelonephritis RENAL ULTRASOUND CLINICAL INDICATION: UTI in concerning for pyelonephritis Sonographic images of the bilateral kidneys and bladder were obtained. COMPARISON: None. FINDINGS: RIGHT KIDNEY: Size: 11.0 x 5.0 x 3.8 cm Cortex: Normal cortical thickness and echogenicity. Hydronephrosis: None Calculi or Cysts: None LEFT KIDNEY: Size: 9.2 x 4.5 x 4.8 cm Cortex: Normal cortical thickness and echogenicity. Hydronephrosis: None Calculi or Cysts: None BLADDER: The bladder is nondistended and not well evaluated.. Other: No mass or fluid collection is seen adjacent to the kidneys. [facility] Marcos Faye MD - 06/14/2024 [facility] Name: SUMIT GREEN [facility] 2005 [id number] Exam Date/Time: 06/14/2024 13:17 Procedure: US RETROPERITONEAL Ordering Provider: DUPREE JONATHAN Reason For Exam: UTI in concerning for pyelonephritis RENAL ULTRASOUND CLINICAL INDICATION: UTI in concerning for pyelonephritis Sonographic images of the bilateral kidneys and bladder were obtained. COMPARISON: None. FINDINGS: RIGHT KIDNEY: Size: 11.0 x 5.0 x 3.8 cm Cortex: Normal cortical thickness and echogenicity. Hydronephrosis: None Calculi or Cysts: None LEFT KIDNEY: Size: 9.2 x 4.5 x 4.8 cm Cortex: Normal cortical thickness and echogenicity. Hydronephrosis: None Calculi or Cysts: None BLADDER: The bladder is nondistended and not well evaluated.. Other: No mass or fluid collection is seen adjacent to the kidneys. IMPRESSION: Within limits of the examination, unremarkable exam Report Dictated on Electronically Signed By: Marcos Faye MD Electronically Signed Date/Time: 06/14/2024 1:53 PM EST [facility] Radiology Study observation (narrative) [facility] US RetroperitoneumOrdered By : Marcos Faye on 06-14-2024 [facility] Work Phone: Urinalysis complete panel (U )on 06-14-2024 Bacteria LM.HPF (Urine sed) [#/Area] Moderate Abnormal Negative /HPF [facility] Bilirubin Ql (U) Negative Negative mg/dL [facility] Clarity (U) Clear Clear [facility] Color (U) Yellow Lt. Yellow [facility] Epithelial cells.squamous LM.HPF (Urine sed) [#/Area] 3-5 [facility] Glucose Ql (U) Normal Normal (<70) mg/dL [facility] Hemoglobin Ql (U) Negative Negative mg/dL [facility] Interpretation and review of laboratory results Abnormal [facility] Ketones (U) [Mass/Vol] Negative Negative mg/d L [facility] Leukocyte esterase Test strip Ql (U) 25 Abnormal Negative Herrera/uL [facility] Mucus LM.HPF (Urine sed) [#/Area] Few Negative /LPF [facility] Nitrite Ql (U) Negative Negative [facility] th pH (U) 6.0 [pH] 5.0 - 8.0 pH [facility] Protein (U) [Mass/Vol] 20 mg/dL Abnormal Negative [facility] RBC LM.HPF (Urine sed) [#/Area] Negative [facility] Specific gravity (U) [Rel density] 1.024 1.005 - 1.030 [facility] Urobilinogen (U) [Mass/Vol] Normal Normal (0-1) mg/dL [facility] Volume, Urine 12 mL [facility] h WBC LM.HPF (Urine sed) [#/Area] 0-2 [facility] VAGINITIS PANEL MVP PCRon VAGINITIS PANEL MVP PCR BACTERIAL VAGINO SIS MVP PCR Reference Not Detected Not Detected NICKI SPP MVP PCR (A) Reference Detected Not Detected NICKI GLABRATA/KRUSEI MVP PCR Reference Not Detected Not Detected TRICHOMONAS VAGINALIS MVP PCR Reference Not Detected Not Detected ORDER COMMENTS: Patient can self swab Methodology: real-time PCR A negative result does not preclude a possible infection. This assay can detect the Nicki species C. albicans, C. tropicalis, C. parapsilosis, and C. dubliniensis but does not differentiate among them. The assay also detects C. glabrata and C. krusei, but does not differentiate between them. Results should be interpreted in conjunction with other clinical data. This test has not been validated for use with specimens collected by patients at home. This test is intended for medical purposes only and is not valid for the evaluation of suspected sexual abuse or for other forensic purposes. Normal [facility] Comment on above: Performed By: #### L [id number] #### Rope Twisting Machine Operator: ISBAEL YUSUF ([id number]) [facility] ([address] Vital signson 06-14-2024 Heart rate 78 /min bpm [facility] COMPLETE URINALYSISon 2024 BACTERIA (#/HPF) IN URINE Many Abnormal Negative [facility] Comment on above: Performed By: #### L [id number] ####Rope Twisting Machine Operator: ISABEL YUSUF ([id number])[facility] ([facility])[address] [place] [address] [place] BILIRUBIN, TOTAL PRESENCE IN URINE Negative Normal Negative [facility] Comment on above: Performed By: #### L [id number] ####Rope Twisting Machine Operator: ISABEL YUSUF ([id number])[facility]ENTER[facility]asm[facility] CRUZDIEUDONNE RITTMAN ([facility])[address] [place] [address] [place] Clarity (U) Turbid Abnormal Clear [facility] Comment on above: Performed By: #### L [id number] ####Rope Twisting Machine Operator: ISABEL YUSUF ([id number])[facility] ([facility])[address] Color (U) Yellow Normal Lt. Yellow [facility] Comment on above: Performed By: #### L [id number] ####Rope Twisting Machine Operator: ISABEL YUSUF ([id number])[facility] ([facility])[address] [place] [address] [place] GLUCOSE (MG/DL) IN URINE Normal Normal Normal (<70 ) [facility] Comment on above: Performed By: #### L [id number] ####Rope Twisting Machine Operator: ISABEL YUSUF ([id number])[facility] ([facility])[address] [place] [address] [place] HEMOGLOBIN PRESENCE IN URINE Negative Normal Negative [facility] Comment on above: Performed By: #### L [id number] ####Rope Twisting Machine Operator: ISABEL YUSUF ([id number])[facility] ([facility])[address] [place] [address] [place] Ketones Ql (U) Negative Normal Negative [facility] Comment on above: Performed By: #### L [id number] ####Rope Twisting Machine Operator: ISABEL YUSUF ([id number])[facility] ([facility])[address] [place] [address] [place] LEUKOCYTE ESTERASE PRESENCE IN URINE BY TEST STRIP Negative Normal Negative [facility] Comment on above: Performed By: #### L [id number] ####Rope Twisting Machine Operator: ISABEL YUSUF ([id number])[facility]asm[facility] ([facility])[address] [place] [address] [place] NITRITE PRESENCE IN URINE Negative Normal Negative [facility] Comment on above: Performed By: #### L [id number] ####Rope Twisting Machine Operator: ISABEL YUSUF ([id number])[facility] ([facility])[address] [place] [address] pH (U) 5.5 [pH] Normal 5.0-8.0 [facility] Comment on above: Performed By: #### L [id number] ####Rope Twisting Machine Operator: ISABEL YUSUF ([id number])[facility] ([facility])[address] [place] [address] Protein (U) [Mass/Vol] Negative Normal Negative [facility] Comment on above: Performed By: #### L [id number] ####Rope Twisting Machine Operator: ISABEL YUSUF ([id number])[facility] ([facility])[address] [place] [address] [place] RBC (#/HPF) IN URINE SEDIMENT 0-2 Normal 0-2 [facility] Comment on above: Performed By: #### L [id number] ####Rope Twisting Machine Operator: ISABEL YUSUF ([id number])[facility]ENTER[facility]asmyn BRO RITTMAN (SWRLAB)[address] [place] [address] Specific gravity (U) [Rel density] 1.022 Normal 1.005-1.030 [facility] Comment on above: Performed By: #### L [id number] ####Rope Twisting Machine Operator: ISABEL YUSUF ([id number])[facility]ENTERJasmyn BRO RITTMAN (SWRLAB)[address] [place] [address] Specimen volume (U) 12 mL Normal [facility] Comment on above: Performed By: #### L [id number] ####Rope Twisting Machine Operator: ISABEL YUSUF ([id number])[facility]A DIEUDONNE RITTMAN (SWRLAB)[address] SQUAMOUS EPITHELIAL CELLS (#/HPF) IN URINE SEDIMENT 6-10 Abnormal 3-5 [facility] Comment on above: Performed By: #### L [id number] ####Rope Twisting Machine Operator: ISABEL YUSUF ([id number])[facility] DIEUDONNE RITTMAN (SWRLAB)[address] [place] [address] UROBILINOGEN (MG/DL) IN URINE Normal Normal Normal (0-1) [facility] Comment on above: Performed By: #### L [id number] ####Rope Twisting Machine Operator: ISABEL YUSUF ([id number])[facility] DIEUDONNE RITTMAN (SWRLAB)[address] [place] [address] WBC (LEUKOCYTE) (#/HPF) IN URINE SEDIMENT 0-2 Normal 0-5 [facility] Comment on above: Performed By: #### L [id number] ####Rope Twisting Machine Operator: ISABEL YUSUF ([id number])[facility] DIEUDONNE RITTMAN (SWRLAB)[address] [place] [address] ED Nursing Noteon 05-27-2024 ED Nursing Note Pt ambulatory to room 6 with c/o flu like symptoms x 2 days with cough, sore throat, congestion . Pt reports having sweats last night that improved after shower. Pt reports having anterior left rib pain x 1 week. Normal [facility] ED Provider Noteon ED Provider Note [facility] ED EMERGENCY DEPARTMENT ENCOUNTER Pt Name: Sumit Green Birthdate 2005 Date of evaluation: 05/27/2024 Provider: Mikal Woodson MD CHIEF COMPLAINT Chief Complaint Patient presents with Flu Symptoms HISTORY OF PRESENT ILLNESS (Location/Symptom, Timing/Onset,Contex t/Setting, Quality, Duration, Modifying Factors, Severity) Note limiting factors. Sumit Green is a 18 y.o. female who presents to the emergency department with multiple complaints. Reports past few days she has had cough congestion but she also reports she is still having dysuria she was has been having intermittent abdominal pain and dysuria since March. She said she was seen on 06 May diagnosed with UTI she was sent home on antibiotics but says she still has symptoms. She does smoke. She reports no dyspnea with exertion. She has had sore throat generalized malaise. The generalized malaise sore throat because been going on greater than 3 days. HPI Historian is the patient Nurse's notes for past medical history, surgical history, social history were reviewed. Medications and allergies reviewed. PAST MEDICAL HISTORY History reviewed. No pertinent past medical history. SURGICALHISTORY History reviewed. No pertinent surgical history. CURRENT MEDICATIONS Previous Medications No medications on file Patient has no known allergies. FAMILY HISTORY No family history on file. SOCIAL HISTORY Social History Socioeconomic History Marital status: Single Tobacco Use Smoking status: Never Smokeless tobacco: Never Vaping Use Vaping status: Every Day Substance and Sexual Activity Alcohol use: Never Drug use: Never SCREENINGS PHYSICAL EXAM (up to 7 for level 4, 8 or more for level 5) @EDTRIAGEVSS@ Appropriate PPE including n 95, gown, gloves, goggles where worn when appropriate with this patient. Physical Exam Vital signs reviewed general: Alert and oriented ?3 head: Atraumatic eyes: Equal round reactive to light and accommodating, pupils are equal, round and reactive to light and accommodation oropharynx: Clear and well hydrated neck: Supple heart: Regular rate and rhythm, no murmurs lungs: Clear to auscultation bilaterally, good air exchange abdomen: Soft nontender, positive bowel sounds, no peritoneal findings. No rebound or guarding Extremities: Moving all fours, no tenderness. Normal capillary refill. Skin: No rash or lesions -to the exposed skin neurologically: Alert and oriented ?3, no focal deficit DIAGNOSTIC RESULTS RADIOLOGY: Interpretation per the Radiologist below, if availableat the time of this note: XR chest 2 views Final Result No acute cardiopulmonary abnormality identified. Report Dictated on Electronically Signed By: Travis Harris MD Electronically Signed Date/Time: 05/27/2024 10:33 AM EST ED BEDSIDE ULTRASOUND: Performed by ED Physician - none LABS: Labs Reviewed COMPLETE URINALYSIS - Abnormal Result Value Color, Urine Yellow Clarity, Urine Turbid (*) pH, Urine 5.5 Leukocytes, Urine Negative Nitrite, Urine Negative Protein, Urine Negative Glucose, Urine Normal Bilirubin, Urine Negative Ketones, Urine Negative Urobilinogen, Urine Normal Blood, Urine Negative Volume, Urine 12 mL RBC, Urine 0-2 WBC, Urine 0-2 Squamous Epithelial, Urine 6-10 (*) Bacteria, Urine Many (*) SPECIFIC GRAVITY OF URINE (NUMERIC) 1.022 URINE CULTURE, ORDERABLE Narrative: The following orders were created for panel order Urine culture. Procedure Abnormality Status --------- ------ Urine culture[[id number]] Urine Hold Cup[[id number]] Please view results for these tests on the individual orders. URINE CULTURE COMPLETE URINALYSIS WITH REFLEX TO CULTURE Narrative: The following orders were created for panel order Urinalysis complete with reflex to Culture. Procedure Abnormality Status --------- ------ Complete Urinalysis[[id number]] Abnormal Final result Please view results for these tests on the individual orders. HCG QUALITATIVE URINE HCG,URINE QUAL Negative Narrative: is the most common reason for HCG in urine, although choriocarcinoma, hydatidiform mole, and certain nontrophoblastic malignancies also result in detectable urinary HCG levels. Sensitivity = 20mIU/mL. URINE HOLD CUP All other labs were within normal range or not returned as of thisdictation. EMERGENCYDEPARTMENT COURSE and DIFFERENTIAL DIAGNOSIS/MDM: Vitals: Vitals: 05/27/24 0956 BP: 116/71 BP Location: Right arm Patient Position: Lying Pulse: 73 Resp: 14 Temp: 36.3 ?C (97.3 ?F) TempSrc: Oral SpO2: 98% Weight: 48.1 kg (106 lb) Height: 1.702 m (5' 7) Medical Decision Making Problems Addressed: Acute cough: complicated acute illness or injury Dysuria: complicated acute illness or injury Amount and/or Complexity of Data Reviewed (more content not included)... Normal [facility] HCG QUALITATIVE URINEon Beta HCG ( test) Ql (U) Negative Normal Negative [facility] Comment on above: Result Comment: Alison hubbard note: Very dilute urine specimens, as indicated by a low specific gravity, may not contain unit support representative levels of hCG. If is still suspected, a first morning urine specimen should be collected 48 hours later and tested. ORDER COMMENTS: is the most common reason for HCG in urine, although choriocarcinoma, hydatidiform mole, and certain nontrophoblastic malignancies also result in detectable urinary HCG levels. Sensitivity = 20mIU/mL. Performed By: #### L [id number] ####Rope Twisting Machine Operator: ISABEL YUSUF ([id number])[facility]PITALDENISE (SWRLAB)[address] [place] [address] Laboratory - Chemistry and C hemistry - challengeOrdered By: Russell Cárdenas on 05-27-2024 Beta HCG ( test) Ql Negative Negative [facility] Comment on above: Please note: Very di lute urine specimens, as indicated by a low specific gravity, may not contain unit support representative levels of hCG. If is still suspected, a first morning urine specimen should be collected 48 hours later and tested. Beta HCG ( test) Ql (U) is the most common reason for HCG in urine, although choriocarcinoma, hydatidiform mole, and certain nontrophoblastic malignancies also result in detectable urinary HCG levels. Sensitivity = 20mIU/mL. [facility] No Panel InformationOrdered By: Russell Cárdenas on 05-27-2024 [facility] Urinalysis complete panel (U )on 05-27-2024 Bacteria LM.HPF (Urine sed) [#/Area] Many Abnormal Negative /HPF [facility] Bilirubin Ql (U) Negative Negative mg/dL [facility] Clarity (U) Turbid Abnormal Clear [facility] Color (U) Yellow Lt. Yellow [facility] Epithelial cells.squamous LM.HPF (Urine sed) [#/Area] 6-10 Abnormal [facility] h Glucose Ql (U) Normal Normal (<70) mg/dL [facility] Hemoglobin Ql (U) Negative Negative mg/dL [facility] Interpretation and review of laboratory results Abnormal [facility] Ketones (U) [Mass/Vol] Negative Negative mg/d L [facility] Leukocyte esterase Test strip Ql (U) Negative Negative Herrera/uL [facility] Nitrite Ql (U) Negative Negative [facility] th pH (U) 5.5 [pH] 5.0 - 8.0 pH [facility] Protein (U) [Mass/Vol] Negative Negative mg/d L [facility] RBC LM.HPF (Urine sed) [#/Area] 0-2 [facility] Specific gravity (U) [Rel density] 1.022 1.005 - 1.030 [facility] Urobilinogen (U) [Mass/Vol] Normal Normal (0-1) mg/dL [facility] Volume, Urine 12 mL [facility] WBC LM.HPF (Urine sed) [#/Area] 0-2 [facility] XR Chest 2 Viewson No acute cardiopulmonary abnormality identified. Report Dictated on Electronically Signed By: Travis Harris MD Electronically Signed Date/Time: 05/27/2024 10:33 AM EST [facility] RADIOLOGY SYSTEM Patient Name: SUMIT GREEN : 2005 Exam Date/Time: 05/27/2024 10:19 Procedure: XR CHEST 2 VIEWS Ordering Provider: WOODSON GREGORY Reason For Exam: Cough congestion left posterior chest wall discomfort EXAMINATION: XR chest PA and lateral. EXAM DATE & TIME: 05/27/2024 10:19 AM EST INDICATION: Cough congestion left posterior chest wall discomfort ADDITIONAL INFORMATION: 18-year-old female with cough, congestion and with posterior left chest wall discomfort presents for evaluation COMPARISON: None TECHNIQUE: Frontal and lateral views of the chest were obtained. FINDINGS: The cardiomediastinal silhouette is within normal limits. No focal consolidation, pleural effusion or pneumothorax. No acute osseous abnormality is demonstrated. [facility] Travis Harris MD - 05/27/2024 Patient Name: SUMIT GREEN : 2005 Exam Date/Time: 05/27/2024 10:19 Procedure: XR CHEST 2 VIEWS Ordering Provider: WOODSON GREGORY Reason For Exam: Cough congestion left posterior chest wall discomfort EXAMINATION: XR chest PA and lateral. EXAM DATE & TIME: 05/27/2024 10:19 AM EST INDICATION: Cough congestion left posterior chest wall discomfort ADDITIONAL INFORMATION: 18-year-old female with cough, congestion and with posterior left chest wall discomfort presents for evaluation COMPARISON: None TECHNIQUE: Frontal and lateral views of the chest were obtained. FINDINGS: The cardiomediastinal silhouette is within normal limits. No focal consolidation, pleural effusion or pneumothorax. No acute osseous abnormality is demonstrated. IMPRESSION: No acute cardiopulmonary abnormality identified. Report Dictated on Electronically Signed By: Travis Harris MD Electronically Signed Date/Time: 05/27/2024 10:33 AM EST [facility] Radiology Study observation (narrative) [facility] alth XR Chest 2 ViewsOrdered By: Travis Harris on 05-27-2024 [facility] [employer] Work Phone: Emergency Department Summary on 05-25-2024 Emergency Department Summary [facility] Medical Records Department [address] [place] [id number] Emergency Department Summary 05/25/24 MR#: [id number] Acct: [id number] Name: SUMIT GREEN Rep #: [id number] : 2005 18 From: Ronald Andrew MD PCP: Care Physician,No Primary Status:DEP ER Location: ED HPI History of Present Illness Chief Complaint: Dental Narrative Narrative: 18-year-old female who denies significant past medical history presents with chronic pain in her left upper jaw secondary to dental caries. She states that she has had a longstanding pain in her left upper jaw for the last few months. She last saw dentist a year ago. She has not been on antibiotics recently and is taking xzbv-tqp-[id number] medications such as Tylenol and ibuprofen. She denies any fevers or chills, no difficulty swallowing, no facial swelling. No exacerbating or alleviating factors. She states she has 2 abscesses in her left upper jaw and a third 1 developing. PFSH PFSH Home Medications ???Medication ???Instructions ???Recorded ???Last Taken ???Type ibuprofen 600 mg tablet 600 mg PO Q8H PRN fever or pain Unknown Rx #30 tabs penicillin V potassium 500 mg 500 mg PO Q6H 7 days #28 tabs 04/27 05/19 Unknown Rx tablet Allergy/AdvReac Type Severity Reaction Status Date / Time No Known Allergies Allergy Verified 07/16/23 19:02 Social History household members: significant other Smoking Status: Never smoker ROS ROS ED ROS Narrative Focused review of systems positive for left upper jaw pain and dental pains. She does have carious teeth. No fevers or chills, no nausea or vomiting, no exacerbating or alleviating factors. She has had dental pain for at least a year. She states that this episode actually started in February of last year, approximately 3 months ago. EXAM Physical Exam Narrative Exam Narrative: Afebrile. Vital signs noted. Nontoxic-appearing. HEENT examination shows PERRL, EOMI. There are carious teeth in the first and third molars. No fluctuance of the gums/gingival abscess. No drooling or trismus. Airway patent. No evidence of Darrel angina. Neck soft and supple. No stridor. Cardiovascular examination regular rate and rhythm. Lungs clear to auscultation bilaterally. Abdomen soft and nontender. Const Vital Signs: 05/25/24 09:31 Temperature 98.3 F Temperature Source Oral Pulse Rate 88 Respiratory Rate 16 Blood Pressure 100/72 Blood Pressure Mean 81 Pulse Ox 100 Oxygen Delivery Method Room Air MDM MDM MDM Narrative Medical decision making narrative: Differential diagnosis includes but not limited to pain secondary to dental caries versus periapical abscess. I reviewed her EMR. She has not had frequent visits for dental pain. I wrote her prescriptions for penicillin VK, and ibuprofen 600 mg and she was given her first doses here in the emergency department. She states she has a dentist with whom she can follow-up. I feel she can be discharged to follow-up. Return instructions to the emergency department reviewed. Disposition is discharged home in stable condition. Discharge Plan Triage Chief Complaint: Dental ED Provider: Ronald Andrew Dx/Rx/DC Orders Clinical Impression: Pain due to dental caries, Pain in upper jaw Instructions: ED Dental Pain, ED Dental Cavity, ED Dental Abscess Prescriptions: New penicillin V potassium 500 mg tablet 500 mg PO Q6H 7 Days Qty: 28 0RF ibuprofen 600 mg tablet 600 mg PO Q8H PRN (Reason: fever or pain) Qty: 30 0RF Primary Care Provider: Care Physician,No Primary Referrals: Care Physician,No Primary [Primary Care Provider] - Activity Restrictions/Additi onal Instructions: Follow-up with your dentist as soon as possible. Print Language: Australian Disposition Disposition: Home, Self Care Discharge Date/Time: 05/25/24 10:22 What to do if you have Problems For any increased pain, shortness of breath, bleeding, nausea or vomiting, chest pain, or any unexpected problems, contact your Primary Care Provider. Call [facility] ([phone]) or report to the closest Emergency Room. Call 911 if necessary. 05/25/24 1232 Cosigner Signature (if applicable): CC: No Primary Care Physician Signed Normal [facility] COMPLETE URINALYSISon 2024 BACTERIA (#/HPF) IN URINE Moderate Abnormal Negative [facility] Comment on above: Performed By: #### L [id number] ####Rope Twisting Machine Operator: ISABEL YUSUF ([id number])[facility] DIEUDONNE RITTMAN (SWRLAB)[address] [place] [address] [place] BILIRUBIN, TOTAL PRESENCE IN URINE Negative Normal Negative [facility] Comment on above: Performed By: #### L [id number] ####Rope Twisting Machine Operator: ISABEL YUSUF ([id number])[facility] DIEUDONNE RITTMAN (SWRLAB)[address] [place] [address] [place] Clarity (U) Clear Normal Clear [facility] Comment on above: Performed By: #### L [id number] ####Rope Twisting Machine Operator: ISABEL YUSUF ([id number])[facility] DIEUDONNE RITTMAN (SWRLAB)[address] [place] [address] [place] Color (U) Yellow Normal Lt. Yellow [facility] Comment on above: Performed By: #### L [id number] ####Rope Twisting Machine Operator: ISABEL YUSUF ([id number])[facility] DIEUDONNE RITTMAN (SWRLAB)[address] [place] [address] [place] GLUCOSE (MG/DL) IN URINE Normal Normal Normal (<70 ) [facility] Comment on above: Performed By: #### L [id number] ####Rope Twisting Machine Operator: ISABEL YUSUF ([id number])[facility] DIEUDONNE RITTMAN (SWRLAB)[address] [place] [address] [place] HEMOGLOBIN PRESENCE IN URINE 0.5 mg/dL Abnormal Negative [facility] Comment on above: Performed By: #### L [id number] ####Rope Twisting Machine Operator: ISABEL YUSUF ([id number])[facility] DIEUDONNE RITTMAN (SWRLAB)[address] [place] [address] Ketones Ql (U) Negative Normal Negative [facility] Comment on above: Performed By: #### L [id number] ####Rope Twisting Machine Operator: ISABEL YUSUF ([id number])[facility] DIEUDONNE RITTMAN (SWRLAB)[address] [place] [address] LEUKOCYTE ESTERASE PRESENCE IN URINE BY TEST STRIP Negative Normal Negative [facility] Comment on above: Performed By: #### L [id number] ####Rope Twisting Machine Operator: ISABEL YUSUF ([id number])[facility] DIEUDONNE RITTMAN (SWRLAB)[address] [place] [address] MUCUS (#/LPF) IN URINE SEDIMENT Few Normal Negative [facility] Comment on above: Performed By: #### L [id number] ####Rope Twisting Machine Operator: ISABEL YUSUF ([id number])[facility] DIEUDONNE RITTMAN (SWRLAB)[address] [place] [address] NITRITE PRESENCE IN URINE Negative Normal Negative [facility] Comment on above: Performed By: #### L [id number] ####Rope Twisting Machine Operator: ISABEL YUSUF ([id number])[facility] DIEUDONNE RITTMAN (SWRLAB)[address] [place] [address] pH (U) 7.0 [pH] Normal 5.0-8.0 [facility] Comment on above: Performed By: #### L [id number] ####Rope Twisting Machine Operator: ISABEL YUSUF ([id number])[facility] DIEUDONNE RITTMAN (SWRLAB)[address] [place] [address] Protein (U) [Mass/Vol] 20 mg/dL Abnormal Negative [facility] Comment on above: Performed By: #### L [id number] ####Rope Twisting Machine Operator: ISABEL YUSUF ([id number])BETTY BRO RITTMAN (SWRLAB)[address] [place] [address] [place] RBC (#/HPF) IN URINE SEDIMENT 0-2 Normal 0-2 [facility] Comment on above: Performed By: #### L [id number] ####Rope Twisting Machine Operator: ISABEL YUSUF ([id number])BETTY BRO RITTMAN (SWRLAB)[address] [place] [address] Specific gravity (U) [Rel density] 1.029 Normal 1.005-1.030 [facility] Comment on above: Performed By: #### L [id number] ####Rope Twisting Machine Operator: ISABEL YUSUF ([id number])[facility]ENTERJasmyn BRO RITTMAN (SWRLAB)[address] [place] [address] Specimen volume (U) 12 mL Normal [facility] Comment on above: Performed By: #### L [id number] ####Rope Twisting Machine Operator: ISABEL YUSUF ([id number])[facility]ENTERJasmyn BRO RITTMAN (SWRLAB)[address] [place] [address] [place] SQUAMOUS EPITHELIAL CELLS (#/HPF) IN URINE SEDIMENT 0-2 Normal 3-5 [facility] Comment on above: Performed By: #### L [id number] ####Rope Twisting Machine Operator: ISABEL YUSUF ([id number])[facility]ENTERJasmyn BRO RITTMAN (SWRLAB)[address] [place] [address] [place] UROBILINOGEN (MG/DL) IN URINE Normal Normal Normal (0-1) [facility] Comment on above: Performed By: #### L [id number] ####Rope Twisting Machine Operator: ISABEL YUSUF ([id number])[facility]ENTERJasmyn CRUZDIEUDONNE RITTMAN (SWRLAB)[address] [place] [address] [place] WBC (LEUKOCYTE) (#/HPF) IN URINE SEDIMENT 0-2 Normal 0-5 [facility] Comment on above: Performed By: #### L [id number] ####Rope Twisting Machine Operator: ISABEL YUSUF ([id number])[facility] JIMMIE (SWRLAB)[address] ED Provider Noteon ED Provider Note EMERGENCY DEPARTMENT ENCOUNTER Pt Name: Sumit Green Birthdate 2005 Date of evaluation: 05/06/2024 CHIEF COMPLAINT Chief Complaint Patient presents with Abdominal Pain Vaginal Bleeding HISTORY OF PRESENT ILLNESS HPI Sumit Green is a 18 y.o. female who presents to the emergency department Reporting lower abdominal pain and cramping. It is intermittent intravillous for approximately 45 minutes. No vomiting no diarrhea no constipation no difficulty, has some urinary hesitancy, no fever. No alcohol use recently. Anti-inflammatory use recently. Lmp 1` month go REVIEW OF SYSTEMS Review of Systems There is no problem list on file for this patient. CURRENT MEDICATIONS Previous Medications No medications on file ALLERGIES Patient has no known allergies. SOCIAL HISTORY Social History Tobacco Use Smoking status: Never Smokeless tobacco: Never Vaping Use Vaping status: Every Day Substance Use Topics Alcohol use: Never Drug use: Never PHYSICAL EXAM Vitals: 05/06/24 1450 BP: 115/68 BP Location: Right arm Patient Position: Sitting Pulse: 78 Resp: 16 Temp: 36.7 ?C (98 ?F) TempSrc: Oral SpO2: 100% Weight: 49.9 kg (110 lb) Height: 1.676 m (5' 6) Physical Exam Vitals and nursing note reviewed. Constitutional: Appearance: She is underweight. She is not toxic-appearing. Abdominal: General: Bowel sounds are normal. Palpations: Abdomen is soft. Tenderness: There is no right CVA tenderness, left CVA tenderness or guarding. Negative signs include Morgan's sign. Hernia: No hernia is present. Skin: General: Skin is warm. Coloration: Skin is not jaundiced. Neurological: Mental Status: She is alert. Psychiatric: Behavior: Behavior normal. SCREENINGS Medical decision making DIAGNOSTIC RESULTS Procedures/EKG: Physician EKG interpretation can be found in [facility] if done RADIOLOGY : Radiologist results reviewed: No orders to display LABS: Labs Reviewed COMPLETE URINALYSIS - Abnormal Result Value Color, Urine Yellow Clarity, Urine Clear pH, Urine 7.0 Leukocytes, Urine Negative Nitrite, Urine Negative Protein, Urine 20 (*) Glucose, Urine Normal Bilirubin, Urine Negative Ketones, Urine Negative Urobilinogen, Urine Normal Blood, Urine 0.5 (*) Volume, Urine 12 mL RBC, Urine 0-2 WBC, Urine 0-2 Squamous Epithelial, Urine 0-2 Bacteria, Urine Moderate (*) Mucus, Urine Few SPECIFIC GRAVITY OF URINE (NUMERIC) 1.029 COMPLETE URINALYSIS WITH REFLEX TO CULTURE Narrative: The following orders were created for panel order Urinalysis complete with reflex to Culture. Procedure Abnormality Status --------- ------ Complete Urinalysis[[id number]] Abnormal Final result Please view results for these tests on the individual orders. HCG QUALITATIVE URINE HCG,URINE QUAL Negative Narrative: is the most common reason for HCG in urine, although choriocarcinoma, hydatidiform mole, and certain nontrophoblastic malignancies also result in detectable urinary HCG levels. Sensitivity = 20mIU/mL. Medications ordered: Medications - No data to display Diagnoses as of 05/06/24 1708 Lower abdominal pain Acute cystitis with hematuria * No order type specified * Our workup consisted of ordering/reviewing: Orders Placed This Encounter Procedures Urinalysis complete with reflex to Culture hCG, urine, qualitative Complete Urinalysis [facility] MDM: 18 y.o. presented with abdominal pain. The differential diagnosis considered: UTI, . Unlikely appendicitis, no fever, . Also, There are no ketones in the urine. Unlikely, diverticulitis as no fever, age <35, . Unlikely, cholecystitis as no RUQ pain, no fever, no morgan's sign, .Unlikely, pancreatitis as no alcohol use in the last 4d. Unlikely, ovarian torsion as patient has no sudden onset of severe pelvic pain with vomiting. Unlikely, AAA as age is< 60, . Unlikely, bowel obstruction as no vomiting,had bowel movements in last 24 hours,, no prior multiple abdominal surgeries. the patient is stable for outpatient management: no Peritoneal signs present no Hemodynamic instability normal bowel sounds no complete ileus no Severe pain at dc. R I discussed with the patient that the workup for abdominal pain did not reveal any acute surgical issue or reason for admission. However I emphasized that they may be early in the course of a disease process and it might be too early to find a surgical process even if it is present. For this reason I advised the patient to follow up for re-evaluation either with their physician or if necessary back here in the ED. I also stressed that they are to return immediately if their symptoms worsen. Patient expressed that they understood and will follow these recommendations. Diagnostic tests considered but not performed: ct abdomen and pelvis. No peritone (more content not included)... Normal [facility] HCG QUALITATIVE URINEon 04-25 Beta HCG ( test) Ql (U) Negative Normal Negative [facility] Comment on above: Result Comment: Alison hubbard note: Very dilute urine specimens, as indicated by a low specific gravity, may not contain unit support representative levels of hCG. If is still suspected, a first morning urine specimen should be collected 48 hours later and tested. ORDER COMMENTS: is the most common reason for HCG in urine, although choriocarcinoma, hydatidiform mole, and certain nontrophoblastic malignancies also result in detectable urinary HCG levels. Sensitivity = 20mIU/mL. Performed By: #### L [id number] ####Rope Twisting Machine Operator: ISABEL YUSUF ([id number])[facility] ([id number] Laboratory - Chemistry and C hemistry - challengeOrdered By: Russell Cárdenas on 05-06-2024 Beta HCG ( test) Ql Negative Negative [facility] Comment on above: Please note: Very di lute urine specimens, as indicated by a low specific gravity, may not contain unit support representative levels of hCG. If is still suspected, a first morning urine specimen should be collected 48 hours later and tested. Beta HCG ( test) Ql (U) is the most common reason for HCG in urine, although choriocarcinoma, hydatidiform mole, and certain nontrophoblastic malignancies also result in detectable urinary HCG levels. Sensitivity = 20mIU/mL. [facility] No Panel InformationOrdered By: Russell Cárdenas on 05-06-2024 [facility] Urinalysis complete panel (U )on 05-06-2024 Bacteria LM.HPF (Urine sed) [#/Area] Moderate Abnormal Negative /HPF [facility] Bilirubin Ql (U) Negative Negative mg/dL [facility] Clarity (U) Clear Clear [facility] Color (U) Yellow Lt. Yellow [facility] Epithelial cells.squamous LM.HPF (Urine sed) [#/Area] 0-[facility]l (U) Normal Normal (<70) mg/dL [facility] Hemoglobin Ql (U) 0.5 mg/dL Abnormal Negative [facility] ealth Interpretation and review of laboratory results Abnormal [facility] Ketones (U) [Mass/Vol] Negative Negative mg/d L [facility] Leukocyte esterase Test strip Ql (U) Negative Negative Herrera/uL [facility] Mucus LM.HPF (Urine sed) [#/Area] Few Negative /LPF [facility] Nitrite Ql (U) Negative Negative [facility] th pH (U) 7.0 [pH] 5.0 - 8.0 pH [facility] Protein (U) [Mass/Vol] 20 mg/dL Abnormal Negative [facility] RBC LM.HPF (Urine sed) [#/Area] 0-2 [facility] Specific gravity (U) [Rel density] 1.029 1.005 - 1.030 [facility] Urobilinogen (U) [Mass/Vol] Normal Normal (0-1) mg/dL [facility] Volume, Urine 12 mL [facility] WBC LM.HPF (Urine sed) [#/Area] 0-2 [facility] EMERGENCY REPORTon 4 EMERGENCY REPORT [facility] EMERGENCY ROOM REPORT NAME ACCOUNT SEX AGE ADMIT DISCHARGE PT MED. RECORD# NUMBER DATE DATE TYPE PETER [id number] F 17 07/25/23 07/25/23 3 SUM[facility] [id number] ROOM: ER DATE OF : 2005 DICTATING PHYSICIAN: Joe Farmer CHIEF COMPLAINT: Nausea, vomiting and abdominal pain. HISTORY OF PRESENT ILLNESS: The patient states that she has had some nausea and vomiting intermittently over the last couple of weeks. She was seen at [facility] and was told she needed more testing. She states that the last couple of days and particularly today it has gotten worse with more vomiting and diffuse abdominal pain. She has not had a fever or chills. No urinary symptoms. She just started her menses. She denies being . PAST MEDICAL HISTORY: Negative for any known medical problems. PAST SURGICAL HISTORY: No previous surgeries. MEDICATIONS: She takes no medications. ALLERGIES: No allergies. SOCIAL HISTORY: The patient goes to school. She does not smoke or drink alcohol. She states that she did use marijuana fairly regularly over spring break in the past week or two but usually does not use it much. REVIEW OF SYSTEMS: As above. No significant weight change. PHYSICAL EXAMINATION: GENERAL: This is an 17-year-old, very thin female who is alert and appropriate. She appears uncomfortable but not toxic. She is somewhat tearful. SKIN: Skin is warm and dry. HEENT: Examination is within normal limits. NECK: Her neck is supple without adenopathy. LUNGS: Lungs are clear without crackles or wheezes. CARDIAC: Cardiac examination is a regular rhythm without any ectopy, murmurs, gallops or rubs. ABDOMEN: Abdomen is thin and soft with mild tenderness diffusely but no guarding or rebound. No masses. Bowel sounds are present but diminished. EXTREMITIES: She moves all extremities appropriately. Good peripheral pulses. Capillary refill is 0 to 1 second. VITAL SIGNS: Temperature is 98.1, pulse 70, respirations 20, blood pressure 121/85, and oxygen saturation 100%. DIAGNOSTIC DATA: Laboratories showed a CBC with a white count of 7800, generally Page 1 of 2 [facility] Emergency Room Report [facility] GREEN : 2005 unremarkable differential, and normal hemoglobin and hematocrit. CMP showed a sodium of 144, potassium 4.1, chloride 108, CO2 of 28, BUN 4, and creatinine 0.73. Lipase is normal. CRP was negligible at 0.06. Anion gap was normal. Urinalysis was generally unremarkable. Abdominal/pelvis CT showed trace pelvic fluid. Urine test was negative. Urine drug screen was positive for THC, otherwise negative. I did proceed to get a gallbladder ultrasound, which showed no acute abnormalities. EMERGENCY DEPARTMENT COURSE AND TREATMENT: An IV of normal saline was placed. She was given a liter of IV fluids. I did give her a dose of Zofran, Protonix, and 0.5 mg of Dilaudid, and she felt much improved with that. A number of laboratory studies and an abdominal/pelvis CT were obtained. She did feel very much improved after the above treatment. DIAGNOSIS: Nausea and vomiting, improved. PLAN/DISPOSITION: She was discharged with ondansetron ODT. She is to follow up with her family physician in 1-2 days, returning if symptoms worsen. Dictated By: Joe Farmer MD 07/25/23 15:06 JOB #: [id number] Transcribed By: randa 07/25/23 15:19 Electronically signed by: DAVID Farmer M.D. 07/30/23 07:03 Page 2 of 2 [facility] Emergency Room Report Normal [facility] C-REACTIVE PROTEINon 024 CRP 0.06 mg/dl Normal 0.00 - 0.90 [facility] Comment on above: Performed By: #### 2 [id number] ####[facility],[address] [place] [address] 12349 CBC + DIFFon 07-25-2023 Baso # 0.02 x10EE3/UL Normal 0.00 - 0.10 [facility] Comment on above: Performed By: #### 2 12389 ####[facility],[address] [place] [address] 80803 Basophils/100 WBC (Bld) 0.3 % Normal 0.0 - 2.0 [facility] Comment on above: Performed By: #### 2 99843 ####[facility],[address] [place] [address] 15284 CBC + DIFF Normal [facility] Comment on above: Result Comment: CBC- COMPLETE BLOOD COUNT Performed By: #### 2 62148 ####[facility],[address] [place] [address] 69378 EO # 0.09 x10EE3/UL Normal 0.00 - 0.50 [facility] Comment on above: Performed By: #### 2 67212 ####[facility],[address] [place] [address] 25518 Eosinophils/100 WBC (Bld) 1.2 % Normal 0.0 - 7.0 [facility] Comment on above: Performed By: #### 2 75952 ####[facility],[address] [place] [address] 62091 Erythrocyte distribution width (RBC) [Ratio] 17.1 % High 12.0 - 15.6 [facility] Comment on above: Performed By: #### 2 56837 ####[facility],[address] [place] [address] 65376 Hematocrit (Bld) [Volume fraction] 36.0 % Normal 34.0 - 46.0 [facility] Comment on above: Performed By: #### 2 49106 ####[facility],[address] [place], [place] [address] Hemoglobin (Bld) [Mass/Vol] 12.0 g/dL Normal 12.0 - 16.0 [facility] Comment on above: Performed By: #### 2 18372 ####[facility],[address] [place], [place] [address] Lymph # 0.85 x10EE3/UL Normal 0.80 - 2.80 [facility] Comment on above: Performed By: #### 2 50138 ####[facility],[address] [place], [place] [address] Lymphocytes/100 WBC (Bld) 10.8 % Low 20.0 - 45.0 [facility] Comment on above: Performed By: #### 2 34648 ####[facility],[address] [place] [address] 48423 MANUAL DIFF N/A Normal [facility] Comment on above: Performed By: #### 2 88168 ####[facility],[address] [place] [address] 14085 MCH (RBC) [Entitic mass] 25 pg Low 27 - 33 [facility] Comment on above: Performed By: #### 2 86781 ####[facility],[address] [place] [address] 61231 MCHC 33 X10 3 Normal 32 - 36 [facility] Comment on above: Performed By: #### 2 65734 ####[facility],[address] [place] [address] 48728 MCV (RBC) [Entitic vol] 74 fL Low 80 - 99 [facility] Comment on above: Performed By: #### 2 67532 ####[facility],[address] [place] [address] 04195 [place] # 0.70 x10EE3/UL Normal 0.20 - 1.00 [facility] Comment on above: Performed By: #### 2 07881 ####[facility],[address] [place] [address] 69706 MONOS % 9.0 % Normal 0.0 - 10.0 [facility] Comment on above: Performed By: #### 2 33852 ####[facility],[address] [place] [address] Morphology Zack (Bld) [Interp] N/A Normal [facility] Comment on above: Performed By: #### 2 98212 ####[facility],[address] [place] [address] Neut # 6.14 x10EE3/UL Normal 1.50 - 7.10 [facility] Comment on above: Performed By: #### 2 26828 ####[facility],[address] [place] [address] Neutrophils/100 WBC (Bld) 78.7 % High 46.0 - 76.0 [facility] Comment on above: Performed By: #### 2 14182 ####[facility],[address] [place] [address] PLATELET 279 x10EE3/UL Normal 150 - 450 [facility] Comment on above: Performed By: #### 2 81850 ####[facility],[address] [place] [address] Platelet mean volume (Bld) [Entitic vol] 7.5 fL Normal 6.6 - 10.5 [facility] Comment on above: Result Comment: AUTO MATED DIFFERENTIAL Performed By: #### 2 29522 ####[facility],[address] [place], [place] [address] RBC 4.87 x 10EE6/UL Normal 4.10 - 5.30 [facility] Comment on above: Performed By: #### 2 61574 ####[facility],[address] [place] [address] 80336 WBC 7.8 x 10EE3/UL Normal 4.5 - 10.8 [facility] Comment on above: Performed By: #### 2 34615 ####[facility],[address] [place] [address] 96452 CMP with eGFRon 07-25-2023 AGE 17 years Normal [facility] Comment on above: Performed By: #### 2 82804 #### [facility],[address] [place] [address] 33349 Albumin [Mass/Vol] 4.2 g/dL Normal 3.4 - 5.0 [facility] Comment on above: Performed By: #### 2 93785 #### [facility],[address] [place] [address] 75630 Albumin/Globulin [Mass ratio] 1.3 {ratio} Normal 0.9 - 1.6 [facility] Comment on above: Performed By: #### 2 82572 #### [facility],[address] [place] [address] 17614 ALK PHOS 64 U/L Normal 46 - 116 [facility] Comment on above: Performed By: #### 2 21315 #### [facility],[address] [place] [address] 74294 ALT [Catalytic activity/Vol] 18 U/L Normal 16 - 63 [facility] Comment on above: Performed By: #### 2 00569 #### [facility],[address] [place] [address] 58286 Anion gap [Moles/Vol] 12 mmol/L Normal 10 - 20 [facility] Comment on above: Performed By: #### 2 80819 #### [facility],[address] [place] [address] 63960 AST [Catalytic activity/Vol] 17 U/L Normal 13 - 39 [facility] Comment on above: Performed By: #### 2 11953 #### [facility],[address] [place] [address] 37595 B/C RATIO 5 ratio Normal 0 - 30 [facility] Comment on above: Performed By: #### 2 09848 #### [facility],[address] [place] [address] 98617 Bilirubin [Mass/Vol] 0.3 mg/dL Normal 0.2 - 1.0 [facility] Comment on above: Performed By: #### 2 18059 #### [facility],[address] [place] [address] 25975 Calcium [Mass/Vol] 8.7 mg/dL Normal 8.5 - 10.1 [facility] Comment on above: Performed By: #### 2 59061 #### [facility],[address] [place] [address] 48875 Chloride [Moles/Vol] 108 mmol/L High 98 - 107 [facility] Comment on above: Performed By: #### 2 50628 #### [facility],[address] [place] [address] 47498 CMP with eGFR Normal [facility] Comment on above: Result Comment: COMP REHENSIVE METABOLIC PANEL Performed By: #### 2 75192 #### [facility],[address] [place] [address] 65374 CO2 [Moles/Vol] 28.3 mmol/L Normal 21.0 - 32.0 [facility] Comment on above: Performed By: #### 2 06604 #### [facility],[address] [place] [address] 02550 Creatinine [Mass/Vol] 0.73 mg/dL Normal 0.55 - 1.02 [facility] Comment on above: Performed By: #### 2 86635 #### [facility],[address] [place] [address] 64500 GFR/1.73 sq M.predicted among non-blacks MDRD (S/P/Bld) [Vol rate/Area] mL/min/{1.73_m2} Normal 60 - 999 [facility] Comment on above: Performed By: #### 2 03329 #### [facility],[address] [place] [address] 82667 Result Comment: ACCO RDING TO THE NATIONAL KIDNEY DISEASE EDUCATION PROGRAM(NKDE), A NORMAL eGFR IS A VALUE GREATER THAN OR EQUAL TO 60 ML/MIN/1.73 SQ METERS. CHRONIC KIDNEY DISEASE: <60mL/MIN/1.73 SQ METERS KIDNEY FAILURE: <15mL/MIN/1.73 SQ METERS THIS TEST SHOULD ONLY BE USED FOR PATIENTS 18 YEARS OF AGE AND OLDER. Globulin (S) [Mass/Vol] 3.2 g/dL Normal 1.5 - 3.8 [facility] Comment on above: Performed By: #### 2 66966 #### [facility],[address] [place] [address] 64155 Glucose [Mass/Vol] 90 mg/dL Normal 74 - 106 [facility] Comment on above: Performed By: #### 2 38358 #### [address] [address] Potassium [Moles/Vol] 4.1 mmol/L Normal 3.5 - 5.1 [facility] Comment on above: Performed By: #### 2 53162 #### [facility],[address] [place] [address] 92700 Protein [Mass/Vol] 7.4 g/dL Normal 6.4 - 8.2 [facility] Comment on above: Performed By: #### 2 77343 #### [address] [address] Sodium [Moles/Vol] 144 mmol/L Normal 136 - 145 [facility] Comment on above: Performed By: #### 2 78020 #### [facility],[address] [place] [address] 95800 Urea nitrogen [Mass/Vol] 4 mg/dL Low 7 - 18 [facility] Comment on above: Performed By: #### 2 57350 #### [facility],[address] [place] [address] ABDOMEN/PELVIS Won 2023 CT ABDOMEN/PELVIS [address] [address] Patient: SUM[facility] GREEN Phone#: : 2005 Age: 17 Gender: F Pt. Type: ER Account: [id number] Location: [facility] Ordering: OJE FARMER Exam Date: 07/25/2023/12:25 Family Phys: Charge Code: [id number] Physician: [place] Order #: [id number] Dose#: 9.00 PROCEDURE: CT ABDOMEN/PELVIS WITH CONTRAST COMPARISON: None. INDICATIONS: Abdominal pain. TECHNIQUE: After obtaining the patient's consent, CT images were created with non-ionic intravenous contrast material. All CT scans at this facility use dose modulation, iterative reconstruction, and/or weight based dosing when appropriate to reduce radiation dose to as low as reasonably achievable. IV CONTRAST: Omnipaque 350,80ml TOTAL DOSE: 9.00 CTDIvol(mGy) FINDINGS: LIVER: Normal. No enlargement, atrophy, abnormal density, or significant focal lesion. BILIARY: Normal. No visible dilatation or calcification. PANCREAS: Normal. No lesion, fluid collection, ductal dilatation, or atrophy. SPLEEN: Normal. No enlargement or focal lesion. KIDNEYS: Normal. No mass, obstruction, or calcification. ADRENALS: Normal. No mass or enlargement. AORTA/VASCULAR: Normal. No aneurysm or dissection. RETROPERITONEUM: Normal. No mass or adenopathy. BOWEL/MESENTERY: Normal. No visible mass, obstruction, or bowel wall thickening. ABDOMINAL WALL: Normal. No mass or hernia. URINARY BLADDER: Normal. No visible focal wall thickening, lesion, or calculus. PELVIC NODES: Normal. No adenopathy. PELVIC ORGANS: The uterus is mildly retroverted. Small amount of free fluid is present in the pelvis. BONES: Normal. No bony lesion or fracture. LUNG BASES: Normal. No visible pulmonary or pleural disease. OTHER: Negative. Continued Report - Page 2 of 2 Patient: SUMIT GREEN Phone#: : 2005 Age: 17 Gender: F Pt. Type: ER Account: [id number] Location: 052 Ordering: JOE FARMER Exam Date: 07/25/2023/12:25 Family Phys: Charge Code: [id number] Physician: [place] Order #: [id number] Dose#: 9.00 CONCLUSION: 1. Small amount of free fluid is present in the pelvis. 2. No other acute abdominal or pelvic abnormality is identified. Dictated by: Dhara Ruano MD on 07/25/2023 at 12:45 Approved by: Dhara Ruano MD on 07/25/2023 at 12:52 Normal [facility] DRUG SCREEN URINE MEDICon AMPHETAMINES Negative Normal [facility] Comment on above: Performed By: #### 2 18975 #### [facility],[address] [place] [address] B-DIAZEPINES Negative Normal [facility] Comment on above: Performed By: #### 2 58147 #### [facility],[address] [place], [place] [phone] BARBITURATES Negative [facility] Comment on above: Performed By: #### 2 28898 #### [facility],[address] [place], [place] [phone] COCAINE Negative [facility] Comment on above: Performed By: #### 2 68701 #### [facility],[address] [place] [address] 71030 DRUG SCREEN URINE MEDIC Normal [facility] Comment on above: Result Comment: DRUG SCREEN - URINE Performed By: #### 2 77263 #### [facility],[address] [place] [address] 45557 METHADONE Negative [facility] Comment on above: Performed By: #### 2 65299 #### [facility],[address] [place] [address] OPIATES Negative Normal [facility] Comment on above: Performed By: #### 2 34325 #### [facility],[address] [place] [address] PCP Negative Normal [facility] Comment on above: Performed By: #### 2 22509 #### [facility],[address] [place] [address] THC Positive Normal [facility] Comment on above: Result Comment: JINA ENTS RECEIVING PROTON PUMP INHIBITORS MAY DEMONSTRATE FALSE POSITIVE THC/CANNABINOID RESULTS. AN ALTERNATIVE CONFIRMATORY METHOD SHOULD BE CONSIDERED TO VERIFY POSITIVE RESULTS. Performed By: #### 2 99038 #### [place] [address] LIPASEon 07-25-2023 Lipase [Catalytic activity/Vol] 15.0 U/L Normal 15.0 - 78.0 [facility] Comment on above: Result Comment: *PLE ASE NOTE THAT RANGES FOR LIPASE HAVE CHANGED OF 04/22/23 DUE TO AN ASSAY UPDATE BY THE HEMODIALYSIS RN.THE NEW ASSAY RANGE IS 6-250 U/L, WITH A REFERENCE RANGE OF 16-77 U/L. Performed By: #### 2 21958 #### [facility],[address] [place] [address] URINEon 07-25-2023 Beta HCG ( test) Ql (U) Negative Normal NEGATIVE [facility] Comment on above: Performed By: #### 2 29927 #### [facility],[address] [place] [address] EXTERNAL QC DONE? YES Normal [facility] Comment on above: Performed By: #### 2 32407 #### [place] [address] INTERNAL QC PASS Normal [facility] Comment on above: Performed By: #### 2 83041 #### [place] [address] URINALYSISon 07-25-2023 Amorphous NONE Normal [facility] Comment on above: Performed By: #### 2 71834 #### [facility],[address] [place] [address] 39685 Bacteria 1+ Normal [facility] Comment on above: Performed By: #### 2 36110 #### [facility],[address] [place] [address] 60069 Bilirubin Ql (U) Negative Normal NORMAL: NEGATIVE [facility] Comment on above: Performed By: #### 2 28496 #### [facility],[address] [place] [address] 24188 Casts NONE Normal [facility] Comment on above: Performed By: #### 2 46105 #### [facility],[address] [place] [address] 58607 Clarity (U) clear Normal NORMAL: CLEAR [facility] Comment on above: Performed By: #### 2 09435 #### [facility],[address] [place] [address] 32768 Color (U) yellow Normal NORMAL: YELLOW [facility] Comment on above: Performed By: #### 2 92311 #### [facility],[address] [place] [address] 44302 Crystals LM Nom (Urine sed) NONE Normal [facility] Comment on above: Performed By: #### 2 48322 #### [facility],[address] [place] [address] 60938 Epi Cells FEW Normal [facility] Comment on above: Performed By: #### 2 64186 #### [facility],[address] [place] [address] 81126 Glucose Ql (U) NORM Normal NORMAL: NORMAL [facility] Comment on above: Performed By: #### 2 60480 #### [facility],[address] [place] [address] 44215 Hemoglobin Ql (U) 250 Abnormal NORMAL: NEGATIVE [facility] Comment on above: Performed By: #### 2 03697 #### [facility],[address] [place] [address] 87624 Ketone Negative Normal NORMAL: NEGATIVE [facility] Comment on above: Performed By: #### 2 25971 #### [facility],[address] [place] [address] 95354 Leukocytes Negative Normal NORMAL: NEGATIVE [facility] Comment on above: Performed By: #### 2 67180 #### [facility],[address] [place] [address] Mucous 2+ Normal [facility] Comment on above: Performed By: #### 2 34096 #### [facility],[address] [place], [place] [phone] Nitrite Ql (U) Negative Normal NORMAL: NEGATIVE [facility] Comment on above: Performed By: #### 2 [id number] #### [facility],[address] [place] [address] pH (U) 5 [pH] Normal NORMAL: 5.0-8.0 [facility] Comment on above: Performed By: #### 2 [id number] #### [facility],[address] [place] [address] Protein Ql (U) 30 Abnormal NORMAL: NEGATIVE [facility] Comment on above: Performed By: #### 2 86145 #### [facility],[address] [place] [address] Rbc 5-10 Normal 0-3/hpf [facility] Comment on above: Performed By: #### 2 85610 #### [facility],[address] [place], [place] [id number] Sp [place] 1.025 Normal NORMAL: 1.010-1.030 [facility] Comment on above: Performed By: #### 2 86378 #### [facility],[address] [place] [address] Specimen Type Clean catch Normal [facility] Comment on above: Performed By: #### 2 47190 #### [facility],[address] [place] [address] Urinalysis dipstick W Reflex Microscopic panel (U) SEE BELOW Normal [facility] Comment on above: Result Comment: MICR OSCOPIC Performed By: #### 2 70553 #### [facility],[address] [place] [address] Urobilinog NORM Normal NORMAL: NORMAL [facility] Comment on above: Performed By: #### 2 [id number] #### [facility],[address] [place] [address] Wbc 1-5 Normal 0-5/hpf [facility] Comment on above: Performed By: #### 2 80989 #### [facility],[address] [place] [address] Yeast NONE Normal [facility] Comment on above: Performed By: #### 2 22648 #### [facility],[address] [place], [place] [id number] US RUQ (GB/PANCREAS)on 07-24 US RUQ (GB/PANCREAS) [place] [address] Patient: SUMIT GREEN Phone#: : 2005 Age: 17 Gender: F Pt. Type: ER Account: [id number] Location: [facility] Ordering: JOE FARMER Exam Date: 07/25/2023/13:39 Family Phys: JEREMY VÁSQUEZ Charge Code: 114500 Physician: [place] Order #: [id number] Dose#: PROCEDURE: RUQ (GB) ULTRASOUND COMPARISON: None. INDICATIONS: Abdominal pain. FINDINGS: LIVER: Normal. Normal size and echotexture. No significant masses. BILIARY: Normal. Normal appearing gallbladder and biliary tree. Common bile duct diameter 4 mm. Gallbladder wall measures 0.1 cm in thickness. PANCREAS: Visualized portion is unremarkable. RIGHT KIDNEY: Normal renal parenchymal echogenicity. No hydronephrosis. Right kidney measures 10.7 x 4.0 x 4.4 cm. OTHER: Negative. CONCLUSION: 1. Unremarkable right upper quadrant ultrasound. DICTATED BY: BARBY JASSO MD ON 07/25/2023 AT 14:26 APPROVED BY: BARBY JASSO MD ON 07/25/2023 AT 14:29 Normal [facility] Enteric Cultureon 07-22-2023 Enteric Culture Release to patient->Automatic 32995&Stool Enteric Culture: No Salmonella or Shigella isolated. Source: STOOL Collected: 07/22/23 13:58 Site: Received : 07/22/23 20:50 Shiga Toxin, stool FINAL 07/23/23 14:33 NEGATIVE Test for SHIGA TOXINS 1 and 2 - Immunochromatograph ic assay - Shiga toxin 1 and 2 are produced by enterohemorrhagic E. coli infections. A negative test is evidence for the absence of E. coli 0157:H7 or other toxin producing E. coli. - The presence or absence of Shigella spp. is reported with the enteric pathogen culture result. - Normal Result: Negative Campylobacter Culture FINAL 07/25/23 09:42 Culture negative for Campylobacter Enteric Culture FINAL 07/24/23 08:19 No Salmonella or Shigella isolated. - Culture was examined for pathogens Salmonella, Shigella, Campylobacter and Shiga-toxin positive E.coli. Normal [facility] Comment on above: Performed By: #### S TOOL #### [place] [address] Giardia and Cryptosporidia S creenon 07-22-2023 Giardia and Cryptosporidia Screen Release to patient->Automatic 78744&Stool Giardia and Cryptosporidia Screen: Giardia lamblia Ag: NEGATIVE Source: STOOL Collected: 07/22/23 13:58 Site: Received : 07/22/23 20:50 Giardia and Cryptosporidia Screen FINAL 07/23/23 12:22 Giardia lamblia Ag: NEGATIVE Enzyme Immunoassay - Normal Result: Negative - Cryptosporidium Ag: NEGATIVE Enzyme Immunoassay - Normal Result: Negative Normal [facility] Comment on above: Performed By: #### C TNG #### [place] [address] Ironon 07-21-2023 %Saturation 8 % Low 13-59 [facility] Comment on above: Order Comment: Pleas e include TIBC. Release to patient->Automatic 23298&Blood Performed By: #### I CAR #### [address] [address] TIBC 427 ug/dL Normal 228-428 [facility] Comment on above: Order Comment: Pleas e include TIBC. Release to patient->Automatic 06459&Blood Performed By: #### I CAR #### [address] [address] Transglutaminase IgAon 07-20 Transglutaminase IgA <1.60 Normal 0.00-8.99 [facility] Comment on above: Order Comment: Relea se to patient->Automatic 81013&Blood Result Comment: NEGATIVE Interpretation of Results: Negative: <9.0 AU/mL Equivocal: 9.0-16.0 AU/mL Positive: >16.0 AU/mL Method: The anti-tTG antibodies were determined using an KARAN-based commercially available kit (Eu-tTG [employer], [facility]). Performed By: #### T RGLA #### [place] [address] C-Reactive Proteinon 024 CRP [Mass/Vol] mg/L Normal 0.0-1.0 [facility] Comment on above: Order Comment: Pleas e include TIBC. Release to patient->Automatic 16165&Blood Result Comment: CRP determinations in neonates should be interpreted with caution. CRP may be elevated in circumstances not associated with inflammation (e.g. difficult delivery, pneumothorax). In premature neonates CRP levels may not rise to abnormal levels even if sepsis is present; some speculate that immature liver function decreases the ability to generate a CRP response. Performed By: #### C RP #### [address] [address] C-reactive protein (Lab Jeannie ect)on 07-20-2023 CRP [Mass/Vol] mg/L 0.0 - 1.0 mg/dL [facility] Comment on above: CRP determinations i n neonates should be interpreted with caution. CRP may be elevated in circumstances not associated with inflammation (e.g. difficult delivery, pneumothorax). In premature neonates CRP levels may not rise to abnormal levels even if sepsis is present; some speculate that immature liver function decreases the ability to generate a CRP response. C. trachomatis/GC PCR Panel on GeneXperton 07-20-2023 C. trachomatis/GC PCR Panel on GeneXpert Reason for preventing automatic release->Other Is this specimen being sent to an external lab?->No Release to patient->Manual release only 83655&Urine-First Void^^^Urine&Urine C. trachomatis PCR on GeneXpert: NEGATIVE-Chlamydia trachomatis DNA: NOT DETECTED. Source: [facility] Collected: 07/20/23 15:16 Site: Urine Received : 07/20/23 21:24 C. trachomatis PCR on GeneXpert FINAL 07/21/23 10:01 NEGATIVE-Chlamydia trachomatis DNA: NOT DETECTED. - GC PCR on GeneXpert FINAL 07/21/23 10:01 NEGATIVE-Neisseria gonorrhea DNA: NOT DETECTED. - Method: DNA detection by RT PCR on a GeneXpert analyzer. - NOTE: This Amplified DNA Assay should not be used for the evaluation of suspected sexual abuse or for other medico-legal indications. - Screening urine specimens for Chlamydia trachomatis and Neisseria gonorrhoeae using nucleic acid amplification is an accurate and sensitive method compared to standard techniques of detection of these pathogens. Because the pathogen is diluted in urine, it is somewhat less sensitive than a direct swab specimen evaluated by nucleic acid amplification techniques. Interpret results with caution! Volume of urine submitted for testing was greater than 50mL, which may result in reduced assay sensitivity. Normal [facility] Comment on above: Performed By: #### C [facility] #### [place] [address] Comp Metabolic Panelon 07-19 Glucose [Mass/Vol] 84 mg/dL Normal 70-99 [facility] Comment on above: Order Comment: Pleas e include TIBC. Release to patient->Automatic 43240&Blood Result Comment: Yet otto for Diagnosis of Diabetes: Fasting Specimen (no caloric intake for at least 8 hours): <100 mg/dL Normal 100-125 mg/dL Increased risk for Diabetes >125 mg/dL Diagnostic for Diabetes Random Glucose (any time of day without regard to last meal): > or = 200 mg/dL plus Classic Symptoms of Diabetes Performed By: #### C MP #### [address] [address] Protein [Mass/Vol] 7.6 g/dL Normal 5.9-8.4 [facility] Comment on above: Order Comment: Pleas e include TIBC. Release to patient->Automatic 04322&Blood Performed By: #### C MP #### [address] [address] Urea nitrogen [Mass/Vol] 7 mg/dL Normal 4-19 [facility] Comment on above: Order Comment: Pleas e include TIBC. Release to patient->Automatic 26572&Blood Performed By: #### C MP #### [address] [address] Albumin [Mass/Vol] 4.8 g/dL Normal 3.5-5.0 [facility] Comment on above: Order Comment: Pleas e include TIBC. Release to patient->Automatic 13472&Blood Performed By: #### C MP #### [address] [address] ALP [Catalytic activity/Vol] 59 U/L Normal 43-83 [facility] Comment on above: Order Comment: Pleas e include TIBC. Release to patient->Automatic 98943&Blood Performed By: #### C MP #### [address] [address] ALT [Catalytic activity/Vol] 9 U/L Normal 0-34 [facility] Comment on above: Order Comment: Pleas e include TIBC. Release to patient->Automatic 34491&Blood Performed By: #### C MP #### [address] [address] AST [Catalytic activity/Vol] 21 U/L Normal 0-31 [facility] Comment on above: Order Comment: Pleas e include TIBC. Release to patient->Automatic 18406&Blood Performed By: #### C MP #### [address] [address] Bili,Total 0.2 mg/dL Normal 0.0-1.0 [facility] Comment on above: Order Comment: Pleas e include TIBC. Release to patient->Automatic 15568&Blood Performed By: #### C MP #### [address] [address] Calcium [Mass/Vol] 9.5 mg/dL Normal 7.6-11.0 [facility] Comment on above: Order Comment: Pleas e include TIBC. Release to patient->Automatic 41618&Blood Performed By: #### C MP #### [address] [address] CO2 [Moles/Vol] 21.9 mmol/L Low 22.0-29.0 [facility] Comment on above: Order Comment: Pleas e include TIBC. Release to patient->Automatic 85686&Blood Performed By: #### C MP #### [address] [address] Creatinine [Mass/Vol] 0.66 mg/dL Normal 0.50-1.00 [facility] Comment on above: Order Comment: Pleas e include TIBC. Release to patient->Automatic 67285&Blood Performed By: #### C MP #### [address] [address] Chloride [Moles/Vol] 104 mmol/L Normal 96-108 [facility] Comment on above: Order Comment: Pleas e include TIBC. Release to patient->Automatic 79800&Blood Performed By: #### C MP #### [address] [address] Potassium [Moles/Vol] 3.9 mmol/L Normal 3.3-5.1 [facility] Comment on above: Order Comment: Pleas e include TIBC. Release to patient->Automatic 32256&Blood Performed By: #### C MP #### [address] [address] Sodium [Moles/Vol] 138 mmol/L Normal 133-145 [facility] Comment on above: Order Comment: Pleas e include TIBC. Release to patient->Automatic 14406&Blood Performed By: #### C MP #### [address] [address] Complete Blood Counton 07-19 Differential Complete Automated Normal [facility] Comment on above: Order Comment: Relea se to patient->Automatic 44519&Blood Performed By: #### C BC #### [address] [address] Basophils/100 WBC (Bld) 0.50 % Normal 0.00-1.00 [facility] Comment on above: Order Comment: Relea se to patient->Automatic 64430&Blood Performed By: #### C BC #### [address] [address] Eosinophils/100 WBC (Bld) 2.00 % Normal 0.00-3.00 [facility] Comment on above: Order Comment: Relea se to patient->Automatic 53590&Blood Performed By: #### C BC #### [address] [address] Erythrocyte distribution width (RBC) [Ratio] 15.7 % High 0.0-14.4 [facility] Comment on above: Order Comment: Relea se to patient->Automatic 13979&Blood Performed By: #### C BC #### [address] [address] Hematocrit (Bld) [Volume fraction] 36.7 % Low 37.0-46.0 [facility] Comment on above: Order Comment: Relea se to patient->Automatic 91062&Blood Performed By: #### C BC #### [address] [address] Hemoglobin (Bld) [Mass/Vol] 11.7 g/dL Low 12.0-15.0 [facility] Comment on above: Order Comment: Relea se to patient->Automatic 70900&Blood Performed By: #### C BC #### [address] [address] Immature granulocytes/100 WBC (Bld) 0.50 % Normal [facility] Comment on above: Order Comment: Relea se to patient->Automatic 20393&Blood Result Comment: Melissa ture Granulocyte Percent includes promyelocytes, myelocytes, and metamyelocytes. IG% > 1.0 indicates a left shift is present. With automated differentials, bands are included in the neutrophil count and not in the Immature Granulocyte Percent. Performed By: #### C BC #### [address] [address] Lymphocytes/100 WBC (Bld) 35.5 % Normal 25.0-45.0 [facility] Comment on above: Order Comment: Relea se to patient->Automatic 35796&Blood Performed By: #### C BC #### [address] [address] MCH (RBC) [Entitic mass] 24.6 pg Low 25.0-35.0 [facility] Comment on above: Order Comment: Relea se to patient->Automatic 55270&Blood Performed By: #### C BC #### [address] [address] MCHC 31.9 % Normal 31.0-37.0 [facility] Comment on above: Order Comment: Relea se to patient->Automatic 44552&Blood Performed By: #### C BC #### [address] [address] MCV (RBC) [Entitic vol] 77.3 fL Low 78.0-96.0 [facility] Comment on above: Order Comment: Relea se to patient->Automatic 45371&Blood Performed By: #### C BC #### [address] [address] Monocytes/100 WBC (Bld) 12.30 % High 3.00-6.00 [facility] Comment on above: Order Comment: Relea se to patient->Automatic 20146&Blood Performed By: #### C BC #### [address] [address] Neutrophils (Bld) [#/Vol] 2.7 10*3/uL Normal 2.0-7.2 [facility] Comment on above: Order Comment: Relea se to patient->Automatic 59228&Blood Performed By: #### C BC #### [address] [address] Neutrophils/100 WBC (Bld) 49.2 % Normal 34.0-64.0 [facility] Comment on above: Order Comment: Relea se to patient->Automatic 37669&Blood Performed By: #### C BC #### [address] [address] Nucleated RBC/100 WBC (Bld) [Ratio] 0.0 % Normal -1.0-0.0 [facility] Comment on above: Order Comment: Relea se to patient->Automatic 38993&Blood Performed By: #### C BC #### [address] [address] Platelet mean volume (Bld) [Entitic vol] 9.8 fL Normal [facility] Comment on above: Order Comment: Relea se to patient->Automatic 40106&Blood Result Comment: MPV is platelet range and age dependent Performed By: #### C BC #### [address] [id number] Platelets (Bld) [#/Vol] 266 10*3/uL Normal 150-450 [facility] Comment on above: Order Comment: Relea se to patient->Automatic 30520&Blood Performed By: #### C BC #### [address] [address] RBC 4.75 10E12/L Normal 4.10-4.80 [facility] Comment on above: Order Comment: Relea se to patient->Automatic 48536&Blood Performed By: #### C BC #### [address] [id number] WBC (Bld) [#/Vol] 5.5 10*3/uL Normal 4.5-13.0 [facility] Comment on above: Order Comment: Relea se to patient->Automatic 36455&Blood Performed By: #### C BC #### [address] [address] Complete Blood Count with Di fferentialon 07-20-2023 Basophils/100 WBC (Bld) 0.50 % 0.00 - 1.00 % [facility] Differential Complete Automated [facility] Eosinophils/100 WBC (Bld) 2.00 % 0.00 - 3.00 % [facility] Erythrocyte distribution width (RBC) [Ratio] 15.7 % High 0.0 - 14.4 % [facility] Hematocrit (Bld) [Volume fraction] 36.7 % Low 37.0 - 46.0 % [facility] Hemoglobin (Bld) [Mass/Vol] 11.7 g/dL Low 12.0 - 15.0 g/dl [facility] Immature granulocytes/100 WBC (Bld) 0.50 % [facility] Comment on above: Immature Granulocyte Percent includes promyelocytes, myelocytes, and metamyelocytes. IG% > 1.0 indicates a left shift is present. With automated differentials, bands are included in the neutrophil count and not in the Immature Granulocyte Percent. Interpretation and review of laboratory results Abnormal [facility] Lymphocytes/100 WBC (Bld) 35.5 % 25.0 - 45.0 % [facility] MCH (RBC) [Entitic mass] 24.6 pg Low 25.0 - 35.0 pg [facility] MCHC 31.9 % 31.0 - 37.0 % [facility] MCV (RBC) [Entitic vol] 77.3 fL Low 78.0 - 96.0 fl [facility] Monocytes/100 WBC (Bld) 12.30 % High 3.00 - 6.00 % [facility] Neutrophils (Bld) [#/Vol] 2.7 10*3/uL [facility] Neutrophils/100 WBC (Bld) 49.2 % 34.0 - 64.0 % [facility] Nucleated RBC/100 WBC (Bld) [Ratio] 0.0 % -1.0 - 0.0 % [facility] Platelet mean volume (Bld) [Entitic vol] 9.8 fL [facility] Comment on above: MPV is platelet range and age dependent Platelets (Bld) [#/Vol] 266 10*3/uL [facility] RBC (Bld) [#/Vol] 4.75 10*6/uL [facility] WBC (Bld) [#/Vol] 5.5 10*3/uL [facility] Release to patient->Automatic ACH LAB [facility] Comprehensive metabolic pane l (Lab Collect)on 07-20-2023 Albumin [Mass/Vol] 4.8 g/dL 3.5 - 5.0 g/dL [facility] ALP [Catalytic activity/Vol] 59 U/L 43 - 83 U/L [facility] ALT [Catalytic activity/Vol] 9 U/L 0 - 34 U/L [facility] AST [Catalytic activity/Vol] 21 U/L 0 - 31 U/L [facility] Bilirubin [Mass/Vol] 0.2 mg/dL 0.0 - 1.0 mg/dL [facility] Calcium [Mass/Vol] 9.5 mg/dL 7.6 - 11. 0 mg/dL [facility] Chloride [Moles/Vol] 104 mmol/L 96 - 108 mmol/L [facility] CO2 [Moles/Vol] 21.9 mmol/L Low 22.0 - 29.0 mmol/L [facility] Creatinine [Mass/Vol] 0.66 mg/dL 0.50 - 1.00 mg/dL [facility] Glucose [Mass/Vol] 84 mg/dL 70 - 99 mg/dL [facility] Comment on above: Criteria for Diagnos is of Diabetes: Fasting Specimen (no caloric intake for at least 8 hours): <100 mg/dL Normal 100-125 mg/dL Increased risk for Diabetes >125 mg/dL Diagnostic for Diabetes Random Glucose (any time of day without regard to last meal): > or = 200 mg/dL plus Classic Symptoms of Diabetes Potassium [Moles/Vol] 3.9 mmol/L 3.3 - 5.1 mmol/L [facility] Protein [Mass/Vol] 7.6 g/dL 5.9 - 8.4 g/dL [facility] Sodium [Moles/Vol] 138 mmol/L 133 - 145 mmol/L [facility] Urea nitrogen [Mass/Vol] 7 mg/dL 4 - 19 mg/d L [facility] Ferritinon 07-20-2023 Ferritin [Mass/Vol] 18 ng/mL Low 25-207 [facility] Comment on above: Order Comment: Pleas e include TIBC. Release to patient->Automatic 50506&Blood Performed By: #### F ERTN #### [place] [address] Ferritin (Lab Collect)on Ferritin [Mass/Vol] 18 ng/mL Low 25 - 207 ng/mL A [facility] Immunoglobulin Aon 4 Immunoglobulin A 131 mg/dL Normal 61-348 [facility] Comment on above: Order Comment: Pleas e include TIBC. Release to patient->Automatic 34219&Blood Performed By: #### I GA #### [address] [address] Immunoglobulin A 131 mg/dL 61 - 348 mg/dL [facility] Ironon 07-20-2023 Iron [Mass/Vol] 34 ug/dL Normal 30-160 [facility] Comment on above: Order Comment: Pleas e include TIBC. Release to patient->Automatic 83773&Blood Performed By: #### I CAR #### [address] [address] Iron & TIBC (Lab Collect)on 07-20-2023 % Saturation 8 % Low 13 - 59 % [facility] Interpretation and review of laboratory results Abnormal [facility] Iron [Mass/Vol] 34 ug/dL 30 - 160 ug/dL [facility] TIBC 427 ug/dL 228 - 428 ug/dL [facility] Please include TIBC. Release to patient->Automatic ACH LAB [facility] No Panel Informationon 07-19 Interpretation and review of laboratory results Abnormal [facility] Please include TIBC. Release to patient->Automatic ACH LAB [facility] Progress Noteon 07-20-2023 [employer] Authentication Interface Message Text Patient ID: Sumit Green is a 17 y.o. female. Her chief complaint(s) include: Follow Up Assessment 1. Weight loss 2. Chronic abdominal pain 3. Diarrhea, unspecified type Plan Sumit was seen today for follow up. Diagnoses and associated orders for this visit: Weight loss - Immunoglobulin A; Future - Transglutaminase IgA; Future - Complete Blood Count with Differential; Future - C-reactive protein (Lab Collect); Future - Comprehensive metabolic panel (Lab Collect); Future - TSH with Reflex to T4, Free (Lab Collect); Future - AMB Referral To Gastroenterology; Future - Iron & TIBC (Lab Collect); Future - Ferritin (Lab Collect); Future Chronic abdominal pain - C.trachomatis/GC PCR Panel - POCT urinalysis dipstick - AMB Referral To Gastroenterology; Future Diarrhea, unspecified type - Stool Enteric culture (Lab Collect); Future - Stool Giardia and Cryptosporidium Screen; Future - AMB Referral To Gastroenterology; Future Want referral to Lucas Pisano (GI) Sees Mary Melton for anxiety in [place] Subjective HPI Comments: In ED 5 days--> was worried about weight loss- 125--> 98 lbs Had some anemia on blood tests per Mom. Does have loose stools. Has not noticed blood in She is accompanied by her mother. Independent history obtained from mother. Follow Up Primary Care Review of Systems Objective Vital Signs 07/20/23 1404 Temp: 36.9 C (98.5 F) Weight: (!) 46.3 kg There is no height or weight on file to calculate BMI. Physical Exam Constitutional: She appears well. She is active. No distress. HENT: Head: Atraumatic. Ears: Right Ear: Tympanic membrane normal. Left Ear: Tympanic membrane normal. Mouth/Throat: Mucous membranes are moist. Cardiovascular: Normal rate and regular rhythm. Heart murmur not heard. Pulmonary/Chest: Breath sounds normal. There is normal air entry. Abdominal: She exhibits no distension. There is no hepatosplenomegaly. There is no abdominal tenderness. Neurological: She is alert. Last Result POCT urinalysis dipstick Collection Time: 07/20/23 3:24 PM Result Value Ref Range POCT, Leukocytes, Urine Negative Negative POCT Nitrite, Urine Negative Negative POCT Protein, Urine Negative Negative - Trace mg/dl POCT Urine,pH 6.5 5.0 - 8.0 POCT Blood, Urine Negative Negative POCT Urine Specific [place] 1.015 1.005 - 1.030 POCT Ketones, Urine Negative Negative mg/dl POCT Glucose, Urine Negative Negative mg/dl Normal [facility] TSH with Reflex to T4, Free (Lab Collect)on 07-20-2023 TSH with reflex to T4, Free 1.420 [facility] TSH with reflex T4FRon 07-19 TSH with reflex T4FR 1.420 uIU/mL Normal 0.500-4.300 A [facility] Comment on above: Order Comment: Pleas e include TIBC. Release to patient->Automatic 62036&Blood Performed By: #### T [facility] #### [facility] [address] [place] [id number] Absolute lymphocyte countOrd ered By: Umer Messina on 07-16-2023 Lymphocytes Auto (Unsp spec) [#/Vol] 1.69 10*3/uL 0.83-4.51 [facility] Automated blood erythrocyte count (number/volume)Ordered By: Umer Messina on 07-16-2023 RBC (Bld) [#/Vol] 4.52 10*6/uL Normal 4.1-4.8 [facility] Comment on above: Performed By: #### L 100.0100, L700.5500, L500.4050, L101.9900 #### [facility] [address] [place], [place], [id number] Automated blood hematocrit ( percentage)Ordered By: Umer Messina on 07-16-2023 Hematocrit (Bld) [Volume fraction] 35.1 % Low 37-46 [facility] Comment on above: Performed By: #### L 100.0100, L700.5500, L500.4050, L101.9900 #### [facility] [address] [place] [place], [place], [id number] Automated lymphocyte count a s percentage of total leukocytesOrdered By: Umer Messina on 07-16-2023 Lymphocytes/100 WBC Auto (Unsp spec) 36.4 % 25-45 [facility] Basophil percentageOrdered B y: Umer Messina on 07-16-2023 Basophils/100 WBC (Bld) 1.1 % High 0-1 [facility] Comment on above: Performed By: #### L 100.0100, L700.5500, L500.4050, L101.9900 #### [facility] [address] [place], [place], [id number] Bilirubin [Mass/Vol] 0.20 mg/dL 0.20-1.00 [facility] Comment on above: For patients on eltr ombopag therapy, use of Dimension [place] TBIL is not recommended. Chloride [Moles/Vol] 109 mmol/L 98-107 [facility] Eosinophils/100 WBC (Bld) 2.6 % Normal 0-3 [facility] Comment on above: Performed By: #### L 100.0100, L700.5500, L500.4050, L101.9900 #### [facility] [address] [place], [address] Glucose [Mass/Vol] 90 mg/dL 74-106 [facility] Hemoglobin (Bld) [Mass/Vol] 11.2 g/dL Low 12.0-15.0 [facility] Comment on above: Performed By: #### L 100.0100, L700.5500, L500.4050, L101.9900 #### [facility] [address] [place], [address] Monocytes/100 WBC (Bld) 9.5 % High 3-6 [facility] Comment on above: Performed By: #### L 100.0100, L700.5500, L500.4050, L101.9900 #### [facility] [address] [place], [address] Neutrophils (Bld) [#/Vol] 2.3 10*3/uL 2.0-7.7 [facility] Neutrophils/100 WBC (Bld) 50.2 % Normal 34-64 [facility] Comment on above: Performed By: #### L 100.0100, L700.5500, L500.4050, L101.9900 #### [facility] [address] [place], [address] Potassium [Moles/Vol] 3.5 mmol/L 3.5-5.1 [facility] Protein [Mass/Vol] 7.4 g/dL 6.4-8.2 [facility] Sodium [Moles/Vol] 141 mmol/L 136-145 [facility] WBC (Bld) [#/Vol] 4.6 10*3/uL Normal 4.5-13.0 [facility] Comment on above: Performed By: #### L 100.0100, L700.5500, L500.4050, L101.9900 #### [facility] [address] [place], [address] CBC W/Diff, Automatedon 06-24 Absolute Lymph 1.69 X10 3/uL Normal 0.83-4.51 [facility] Comment on above: Performed By: #### L 100.0100, L700.5500, L500.4050, L101.9900 #### [facility] [address] [place], [address] Absolute Neut 2.3 X10 3/uL Normal 2.0-7.7 [facility] Comment on above: Performed By: #### L 100.0100, L700.5500, L500.4050, L101.9900 #### [facility] [address] [place], [address] IG% 0.200 Normal 0.0-0.9 [facility] Comment on above: Result Comment: IG% - Immature Granulocytes (promyelocytes, myelocytes and metamyelocytes) > 1% indicates that a LEFT SHIFT is Present. Performed By: #### L 100.0100, L700.5500, L500.4050, L101.9900 #### [facility] [address] [place], [address] Lymphocytes/100 WBC (Bld) 36.4 % Normal 25-45 [facility] Comment on above: Performed By: #### L 100.0100, L700.5500, L500.4050, L101.9900 #### [facility] [address] [place], [address] Nucleated RBC (Bld) [#/Vol] 0 10*3/uL Normal 0-5 [facility] Comment on above: Performed By: #### L 100.0100, L700.5500, L500.4050, L101.9900 #### [facility] [address] [place], [address] RDW SD 41.9 fl Normal 35.1-43.9 [facility] Comment on above: Performed By: #### L 100.0100, L700.5500, L500.4050, L101.9900 #### [facility] [address] [place], [address] CBC W/Diff, AutomatedOrdered By: Umer Messina on 07-16-2023 MCH (RBC) [Entitic mass] 24.8 pg Low 25.0-35.0 [facility] Comment on above: Performed By: #### L 100.0100, L700.5500, L500.4050, L101.9900 #### [facility] [address] [place], [address] MCHC (RBC) [Mass/Vol] 31.9 g/dL Low 32-36 [facility] Comment on above: Performed By: #### L 100.0100, L700.5500, L500.4050, L101.9900 #### [facility] [address] [place], [address] Platelet mean volume (Bld) [Entitic vol] 9.2 fL Normal 6.2-12.0 [facility] Comment on above: Performed By: #### L 100.0100, L700.5500, L500.4050, L101.9900 #### [facility] [address] [place], [address] Platelets (Bld) [#/Vol] 212 10*3/uL Normal 150-450 [facility] Comment on above: Performed By: #### L 100.0100, L700.5500, L500.4050, L101.9900 #### [facility] [address] [place], [address] Comprehensive Metabolic Prof ilon 07-16-2023 Albumin [Mass/Vol] 4.1 g/dL Normal 3.2-5.0 [facility] Comment on above: Performed By: #### L 100.0100,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 Normal [facility] CHEST 2 VIEWSon 04-05-2023 CHEST 2 VIEWS [place] [address] Patient: SUMIT GREEN Phone#: : 2005 Age: 17 Gender: F Pt. Type: ER Account: [id number] Location: 052 Ordering: JOE FARMER Exam Date: 04/05/2023/16:38 Family Phys: Charge Code: [id number] Physician: [place] Order #: [id number] Dose#: PROCEDURE: X-RAY CHEST 2 VIEWS COMPARISON: None. INDICATIONS: Chest pain. FINDINGS: LUNGS: Normal. No significant pulmonary parenchymal abnormalities. VASCULATURE: Normal. Unremarkable pulmonary vasculature. CARDIAC: Normal. No cardiac silhouette abnormality or cardiomegaly. MEDIASTINUM: Normal. No visible mass or adenopathy. PLEURA: Normal. No effusion or pleural thickening. BONES: Normal. No fracture or visible bony lesion. OTHER: Negative. CONCLUSION: No acute disease. Dictated by: Barby Jasso MD on 04/05/2023 at 16:49 Approved by: Barby Jasso MD on 04/05/2023 at 16:52 Normal [facility] CT BRAIN W/O CONTRAST 03-25 CT BRAIN W/O CONTRAST [place] [address] Patient: SUMIT GREEN Phone#: : 2005 Age: 17 Gender: F Pt. Type: ER Account: [id number] Location: 052 Ordering: JOE FARMER Exam Date: 04/05/2023/16:36 Family Phys: Charge Code: [id number] Physician: [place] Order #: [id number] Dose#: 52.3 mGy PROCEDURE: CT BRAIN WITHOUT CONTRAST COMPARISON: None. INDICATIONS: Trauma. TECHNIQUE: CT images were obtained without contrast material. All CT scans at this facility use dose modulation, iterative reconstruction, and/or weight based dosing when appropriate to reduce radiation dose to as low as reasonably achievable. IV CONTRAST: No IV contrast used,0ml TOTAL DOSE: 52.3 CTDIvol(mGy) FINDINGS: CEREBRUM: No edema, hemorrhage, mass, or inappropriate atrophy. CEREBELLUM: No edema, hemorrhage, mass, or inappropriate atrophy. BRAINSTEM: No edema, hemorrhage, mass, or inappropriate atrophy. CSF SPACES: Ventricles, cisterns, and sulci are appropriate for age. No hydrocephalus, subarachnoid hemorrhage, or mass. SKULL: No mass or other significant visible lesion. SINUSES: Mucous retention cyst in left maxillary sinus. Mucosal thickening in the right maxillary sinus. ORBITS: Limited views are unremarkable. OTHER: Negative. CONCLUSION: 1. No appreciable acute intracranial abnormality. Dictated by: Barby Jasso MD on 04/05/2023 at 16:52 Approved by: Barby Jasso MD on 04/05/2023 at 16:57 Normal [facility] CT CERVICAL W/O CONTRASTon 1 06-06-2022 CT CERVICAL W/O CONTRAST [place] [address] Patient: SUMIT GREEN Phone#: : 2005 Age: 17 Gender: F Pt. Type: ER Account: [id number] Location: [facility] Ordering: JOE FARMER Exam Date: 04/05/2023/16:36 Family Phys: Charge Code: [id number] Physician: [place] Order #: [id number] Dose#: 6.0 mGy PROCEDURE: CT CERVICAL WITHOUT CONTRAST COMPARISON: None. INDICATIONS: Trauma. TECHNIQUE: Multi-planar CT images were created without intravenous contrast. All CT scans at this facility use dose modulation, iterative reconstruction, and/or weight-based dosing when appropriate to reduce radiation dose to as low as reasonably achievable. IV CONTRAST: No IV contrast used,0ml TOTAL DOSE: 6.0 CTDIvol(mGy) FINDINGS: CRANIOCERVICAL AREA: Normal foramen magnum with no Chiari malformation. PARASPINAL AREA: Normal with no visible mass. BONES: Vertebral bodies are maintained in height and alignment. No fracture or subluxation. The dens is intact. The lateral masses are symmetric. There is straightening of the normal cervical lordosis, this may be positional or due to muscle spasm. CERVICAL DISC LEVELS: C2-C3 to C7-T1: No significant disc/facet abnormality, spinal stenosis, or foraminal stenosis. CONCLUSION: 1. No acute osseous abnormality 2. Straightening of the normal cervical lordosis this may be positional or due to muscle spasm. Dictated by: Barby Jasso MD on 04/05/2023 at 16:57 Approved by: Barby Jasso MD on 04/05/2023 at 17:01 Normal [facility] Absolute lymphocyte countOrd ered By: Ludivina Hein on 12-08-2022 Lymphocytes Auto (Unsp spec) [#/Vol] 0.99 10*3/uL 0.83-4.51 [facility] Basophil percentageOrdered B y: Ludivina Hein on 12-08-2022 Basophil percentage 0-5 SEEN /hpf 0-5 [facility] Basophils/100 WBC (Bld) 0.5 % 0-1 [facility] Chloride [Moles/Vol] 111 mmol/L 98-107 [facility] Eosinophils/100 WBC (Bld) 0.5 % 0-3 [facility] Glucose [Mass/Vol] 72 mg/dL 74-106 [facility] Neutrophils (Bld) [#/Vol] 4.4 10*3/uL 2.0-7.7 [facility] Neutrophils/100 WBC (Bld) 73.4 % 34-64 [facility] Potassium [Moles/Vol] 3.7 mmol/L 3.5-5.1 [facility] Sodium [Moles/Vol] 137 mmol/L 136-145 [facility] WBC (Bld) [#/Vol] 6.0 10*3/uL 4.5-13.0 [facility] Beta hCG serum qualOrdered B y: Ludivina Hein on 12-08-2022 Beta HCG ( test) Ql Negative [facility] Bilirubin Test strip Ql (U)O rdered By: Ludivina Hein on 12-08-2022 Bilirubin Ql (U) Negative Negative [facility] Blood erythrocytes count (nu mber/volume)Ordered By: Ludivina Hein on 12-08-2022 RBC (Bld) [#/Vol] 4.50 10*6/uL 4.1-4.8 [facility] Blood hemoglobin measurement (mass/volume)Ordered By: Ludivina Hein on 12-08-2022 Hemoglobin (Bld) [Mass/Vol] 11.6 g/dL 12.0-15.0 [facility] Blood lymphocytes/100 leukoc ytesOrdered By: Ludivina Hein on 12-08-2022 Lymphocytes/100 WBC (Bld) 16.4 % 25-45 [facility] Blood monocytes/100 leukocyt esOrdered By: Ludivina Hein on 12-08-2022 Monocytes/100 WBC (Bld) 9.0 % 3-6 [facility] Blood platelet mean volumeOr dered By: Ludivina Hein on 12-08-2022 Platelet mean volume (Bld) [Entitic vol] 9.6 fL 6.2-12.0 [facility] Calcium oxalate crystals det ection in urine sediment by light microscopyOrdered By: Ludivina Hein on 12-08-2022 Calcium oxalate crystals LM Ql (Urine sed) 1+ /hpf [facility] Determination of erythrocyte mean corpuscular volume (MCV)Ordered By: Ludivina Hein on 12-08-2022 MCV (RBC) [Entitic vol] 82.2 fL 78-96 [facility] Hematocrit Auto (Bld) [Volum e fraction]Ordered By: Ludivina Hein on 12-08-2022 Hematocrit (Bld) [Volume fraction] 37.0 % 37-46 [facility] Ketones Test strip Ql (U)Ord ered By: Ludivina Hein on 12-08-2022 Ketones Ql (U) 5 mg/dl Negative [facility] Laboratory - Chemistry and C hemistry - challengeOrdered By: Ludivina Hein on 12-08-2022 CO2 [Moles/Vol] 20.0 mmol/L 21.0-32.0 [facility] Urea nitrogen/Creatinine [Mass ratio] 12.1 mg/mg 10-20 [facility] - Hematology and Cell countsOrdered By: Ludivina Hein on 12-08-2022 Erythrocyte distribution width (RBC) [Entitic vol] 46.0 fL 35.1-43.9 [facility] Erythrocyte distribution width (RBC) [Ratio] 15.2 % 11.6-14.6 [facility] Immature granulocytes/100 WBC (Bld) 0.200 % 0.0-0.9 [facility] Comment on above: IG% - Immature Granu locytes (promyelocytes, myelocytes and metamyelocytes) > 1% indicates that a LEFT SHIFT is Present. MCH (RBC) [Entitic mass] 25.8 pg 25.0-35.0 [facility] Nucleated RBC/100 WBC (Bld) [Ratio] 0 % 0-5 [facility] MCHC Auto (RBC) [Mass/Vol]Or dered By: Ludivina Hein on 12-08-2022 MCHC (RBC) [Mass/Vol] 31.4 g/dL 32-36 [facility] Mucus LM Ql (Urine sed)Order ed By: Ludivina Hein on 12-08-2022 Mucus Ql (Urine sed) 2+ /hpf [facility] Nitrite Test strip Ql (U)Ord ered By: Ludivina Hein on 12-08-2022 Nitrite Ql (U) Negative Negative [facility] No Panel InformationOrdered By: Ludivina Hein on 12-08-2022 Estimated Creatinine Clearance Calc 92.66 ml/min [facility] Estimated GFR (MDRD) [facility] Comment on above: Test not performedAf rican [place] GFR Calc Estimated GFR (MDRD) Non-Af [facility] Comment on above: Test not performedNo n- GFR Calc Platelets bldOrdered By: Danielle Hein on 12-08-2022 Platelets (Bld) [#/Vol] 251 10*3/uL 150-450 [facility] Protein Test strip Ql (U)Ord ered By: Ludivina Hein on 12-08-2022 Protein Ql (U) 30 mg/dl Negative [facility] Serum or plasma calcium brea urement (mass/volume)Ordered By: Ludivina Hein on 12-08-2022 Calcium [Mass/Vol] 9.0 mg/dL 8.5-10.1 [facility] Serum or plasma creatinine m easurement (mass/volume)Ordered By: Ludivina Hein on 12-08-2022 Creatinine [Mass/Vol] 0.74 mg/dL 0.55-1.02 [facility] Comment on above: The validity of the calculated GFR & GFRAA in patients over 70 years has not been determined. Clinical correlation is essential. Serum or plasma urea nitroge n measurement (mass/volume)Ordered By: Ludivina Hein on 12-08-2022 Urea nitrogen [Mass/Vol] 9 mg/dL 7-18 [facility] Squamous epithelial cells de tection in urine sediment by light microscopyOrdered By: Ludivina Hein on 12-08-2022 Epithelial cells.squamous LM Ql (Urine sed) 0-5 SEEN /hpf 5-10 [facility] Thin prep Papanicolaou smear with manual screeningOrdered By: Ludivina Hein on 12-08-2022 Thin prep Papanicolaou smear with manual screening 6 5-15 [facility] Urine blood detectionOrdered By: Ludivina Hein on 12-08-2022 RBC Ql (U) 250 /ul Negative [facility] RBC Ql (U) 0 SEEN /hpf 0-5 [facility] Urine clarityOrdered By: Danielle Hein on 12-08-2022 Clarity (U) Clear Clear [facility] Urine color determinationOrd ered By: Ludivina Hein on 12-08-2022 Color (U) Yellow Yellow [facility] Urine glucose detectionOrder ed By: Ludivina Hein on 12-08-2022 Glucose Ql (U) Normal mg/dl Normal [facility] Urine leukocyte esterase det ection by dipstickOrdered By: Ludivina Hein on 12-08-2022 Leukocyte esterase Test strip Ql (U) 25 /ul Negative [facility] Urine pHOrdered By: Ludivina Hein on 12-08-2022 pH (U) 7.0 [pH] 5.0 - 8.0 [facility] Urine sediment bacteria coun t by microscopy (number/high power field)Ordered By: Ludivina Hein on 12-08-2022 Bacteria LM.HPF (Urine sed) [#/Area] 0 /[HPF] None Seen [facility] Urine specific gravity measu rementOrdered By: Ludivina Hein on 12-08-2022 Specific gravity (U) [Rel density] 1.020 1.002-1.030 [facility] Urobilinogen Auto test strip Ql (U)Ordered By: Ludivina Hein on 12-08-2022 Urobilinogen Ql (U) 1 mg/dl Normal [facility] Basophil percentageOrdered B y: Humphrey Tapia on 10-04-2022 Basophil percentage 50-100 SEEN /hpf 0-5 [facility] Bilirubin Test strip Ql (U)O rdered By: Humphrey Tapia on 10-04-2022 Bilirubin Ql (U) Negative Negative [facility] Culture, urineOrdered By: Stefani Tapia on 10-04-2022 Bacteria identified Cx Nom (U) Positive [facility] Ketones Test strip Ql (U)Ord ered By: Humphrey Tapia on 10-04-2022 Ketones Ql (U) Negative Negative [facility] Laboratory - Chemistry and C hemistry - challengeOrdered By: Humphrey Tapia on 10-04-2022 HCG ( test) Ql (U) Negative [facility] Comment on above: Very dilute urine sp ecimens, as indicated by a low specificgravity, may not contain unit support representative levels of hCG. If is still suspected, a first morning urinespecimen should be collected 48 hours later and tested. Mucus LM Ql (Urine sed)Order ed By: Humphrey Tapia on 10-04-2022 Mucus Ql (Urine sed) 0 SEEN /hpf [facility] Nitrite Test strip Ql (U)Ord ered By: Humphrey Tapia on 10-04-2022 Nitrite Ql (U) Negative Negative [facility] Protein Test strip Ql (U)Ord ered By: Humphrey Tapia on 10-04-2022 Protein Ql (U) 30 mg/dl Negative [facility] Squamous epithelial cells de tection in urine sediment by light microscopyOrdered By: Humphrey Tapia on 10-04-2022 Epithelial cells.squamous LM Ql (Urine sed) 10-25 SEEN /hpf 5-10 [facility] Trichomonas vaginalis detect ion by wet preparationOrdered By: Humphrey Tapia on 10-04-2022 T. vaginalis Wet prep Ql (Unsp spec) [facility] Urine blood detectionOrdered By: Humphrey Tapia on 10-04-2022 RBC Ql (U) 250 /ul Negative [facility] RBC Ql (U) 0 SEEN /hpf 0-5 [facility] Urine clarityOrdered By: Jr Tapia on 10-04-2022 Clarity (U) Cloudy Clear [facility] Urine color determinationOrd ered By: Humphrey Tapia on 10-04-2022 Color (U) Yellow Yellow [facility] Urine glucose detectionOrder ed By: Humphrey Tapia on 10-04-2022 Glucose Ql (U) Normal mg/dl Normal [facility] Urine leukocyte esterase det ection by dipstickOrdered By: Humphrey Tapia on 10-04-2022 Leukocyte esterase Test strip Ql (U) 500 /ul Negative [facility] Urine pHOrdered By: Humphrey correa on 10-04-2022 pH (U) 6.0 [pH] 5.0 - 8.0 [facility] Urine sediment bacteria coun t by microscopy (number/high power field)Ordered By: Humphrey Tapia on 10-04-2022 Bacteria LM.HPF (Urine sed) [#/Area] 2 /[HPF] None Seen [facility] Urine specific gravity measu rementOrdered By: Humphrey Tapia on 10-04-2022 Specific gravity (U) [Rel density] 1.020 1.002-1.030 [facility] Urobilinogen Auto test strip Ql (U)Ordered By: Humphrey Tapia on 10-04-2022 Urobilinogen Ql (U) Normal mg/dl Normal [facility] Progress Noteon 08-13-2022 [employer] Operator Authentication Interface Message Text Patient ID: Sumit Green is a 16 y.o. female. Her chief complaint(s) include: Lumps (Sx onset March of last year, was not painful until recently. 2 lumps, one on Rt breast and the second is on the left side under arm. States that pain is a burning/throbbing pain) Assessment 1. Bilateral breast lump 2. Lump in axillary tail of breast Plan Sumit was seen today for lumps. Diagnoses and associated orders for this visit: Bilateral breast lump - Mammogram; Future Lump in axillary tail of breast No follow-ups on file. Subjective She is accompanied by her mother. The onset has been acute. The duration has been 6 months. The pattern is persistent. The course is increasing. The symptoms are described as moderate. The location of symptoms have included the axillary region. Lumps The patient's associated symptoms include: tenderness and pain. The patient has no fatigue, no malaise, no fever, no bone pain, no weight loss, no cold symptoms, no sore throat, no cough, no scalp problems, no swelling, no joint pain, no warmth, no rash, no redness and no pallor. Primary Care Review of Systems Objective Vital Signs 08/13/22 1158 Temp: 36.9 C (98.5 F) TempSrc: Temporal Weight: 51 kg There is no height or weight on file to calculate BMI. Physical Exam Nursing note reviewed. Constitutional: She appears well. She is active. No distress. HENT: Head: Atraumatic. Ears: Right Ear: External ear normal. Left Ear: External ear normal. Mouth/Throat: Mucous membranes are moist. Cardiovascular: Normal rate and regular rhythm. Heart murmur not heard. Pulmonary/Chest: Effort normal and breath sounds normal. There is normal air entry. No respiratory distress. She has no rales. Neurological: She is alert. Skin: Capillary refill takes less than 3 seconds. Skin is warm. Vitals reviewed: Temperature 36.9 C (98.5 F), temperature source Temporal, weight 51 kg. Normal [facility] Vital Signs Date Time Vital Sign Value Performing Clinician Facility 09-12-2024 10:19040 Body mass index (BMI) [Ratio] 18.54 kg/m2 Aurea MelendezCeQur Work Phone: [facility] 09-12-2024 10:19040 Body weight 50.53 kg Aurea MelendezBypass Mobile Phone: [facility] 09-12-2024 10:[id number] Diastolic blood pressure 65 mm[Hg] Aurea [employer] Phone: [facility] 09-12-2024 10:19040 Heart rate 79 /min Aurea MelendezBypass Mobile Phone: [facility] 09-12-2024 10:19040 Systolic blood pressure 104 mm[Hg] Aurea MelendezBypass Mobile Phone: [facility] 09-05-2024 03:57-0400 Body temperature 97.39 [degF] Ovi Delacruz MD Work Phone: [facility] 09-05-2024 03:57-0400 Diastolic blood pressure 72 mm[Hg] Ovi Delacruz MD Work Phone: [facility] 09-05-2024 03:57-0400 Heart rate 80 /min Ovi Delacruz MD Work Phone: [facility] 09-05-2024 03:57-0400 Respiratory rate 17 /min Ovi Delacruz MD Work Phone: [facility] 09-05-2024 03:57-0400 SaO2% (BldA) [Mass fraction] 97 % Ovi Delacruz MD Work Phone: [facility] 09-05-2024 03:57-0400 Systolic blood pressure 100 mm[Hg] Ovi Delacruz MD Work Phone: [facility] 08-10-2024 12:43-0400 Body mass index (BMI) [Ratio] 18.47 kg/m2 Ki Jackovic DO Work Phone: [facility] 08-10-2024 12:43-0400 Body weight 50.35 kg Ki Shaheenovic DO Work Phone: [facility] [employer] 08-10-2024 12:43-0400 Diastolic blood pressure 64 mm[Hg] Ki Jackovic DO Work Phone: [facility] [employer] 08-10-2024 12:43-0400 Heart rate 103 /min Ki Jackovic DO Work Phone: [facility] [employer] 08-10-2024 12:43-0400 Systolic blood pressure 93 mm[Hg] Ki Jackovic DO Work Phone: [facility] [employer] 08-06-2024 13:00-0400 Diastolic blood pressure 63 mm[Hg] Marian Coughlin DO Work Phone: [facility] [employer] 08-06-2024 13:00-0400 Heart rate 97 /min Marian Coughlin DO Work Phone: [employer] 08-06-2024 13:00-0400 SaO2% (BldA) [Mass fraction] 100 % Marian Coughlin DO Work Phone: [facility] [employer] 08-06-2024 13:00-0400 Systolic blood pressure 94 mm[Hg] Marian Coughlin DO Work Phone: [facility] [employer] 08-06-2024 12:29-0400 Body temperature 98.1 [degF] Marian Coughlin DO Work Phone: [facility] [employer] 08-06-2024 12:29-0400 Respiratory rate 18 /min Marian Coughlin DO Work Phone: [facility] [employer] 06-25-2024 15:08-0500 Body height 165.1 cm Vick Cortez MD Work Phone: [facility] [employer] 06-25-2024 15:08-0500 Body mass index (BMI) [Ratio] 17.64 kg/m2 Vick Cortez MD Work Phone: [facility] [employer] 06-25-2024 15:08-0500 Body temperature 97.9 [degF] Vick Cortez MD Work Phone: [facility] [employer] 06-25-2024 15:08-0500 Body weight 48.08 kg Vick Cortez MD Work Phone: [facility] [employer] 06-25-2024 15:08-0500 Diastolic blood pressure 78 mm[Hg] Vick Cortez MD Work Phone: [facility] [employer] 06-25-2024 15:08-0500 Heart rate 79 /min Vick Cortez MD Work Phone: [facility] [employer] 06-25-2024 15:08-0500 SaO2% (BldA) [Mass fraction] 98 % Vick Cortez MD Work Phone: [facility] [employer] Comment on above: 06-25-2024 15:08-0500 Systolic blood pressure 115 mm[Hg] Vick Cortez MD Work Phone: [employer] 06-16-2024 08:11-0500 Body temperature 98.6 [degF] Zahira [employer] Solarjojo DO Work Phone: [employer] 06-16-2024 08:11-0500 Diastolic blood pressure 63 mm[Hg] Zahira Pixelatedmarcos-Adayanauever DO Work Phone: [employer] 06-16-2024 08:11-0500 Heart rate 77 /min [employer]-Adayanauever DO Work Phone: [employer] 06-16-2024 08:11-0500 Respiratory rate 16 /min [employer] Solarver DO Work Phone: [employer] 06-16-2024 08:11-0500 SaO2% (BldA) [Mass fraction] 100 % [employer] DO Work Phone: [employer] 06-16-2024 08:11-0500 Systolic blood pressure 100 mm[Hg] [employer]-Adayanazane DO Work Phone: [employer] 06-14-2024 18:44-0500 Body height 165.1 cm [employer] Solar[employer] DO Work Phone: [employer] 06-14-2024 18:44-0500 Body mass index (BMI) [Ratio] 17.64 kg/m2 [employer]Adayanazane DO Work Phone: [employer] 06-14-2024 18:44-0500 Body weight 48.08 kg Roamlerzane DO Work Phone: [employer] 05-27-2024 11:07-0500 Diastolic blood pressure 62 mm[Hg] Mikal Woodson MD Work Phone: [employer] 05-27-2024 11:07-0500 Heart rate 74 /min Mikal Woodson MD Work Phone: [employer] 05-27-2024 11:07-0500 Respiratory rate 16 /min Mikal Woodson MD Work Phone: [facility] 05-27-2024 11:07-0500 SaO2% (BldA) [Mass fraction] 98 % Mikal Woodson MD Work Phone: [facility] 05-27-2024 11:07-0500 Systolic blood pressure 108 mm[Hg] Mikal Woodson MD Work Phone: [facility] 05-27-2024 09:56-0500 Body height 170.2 cm Mikal Woodson MD Work Phone: [facility] 05-27-2024 09:56-0500 Body mass index (BMI) [Ratio] 16.6 kg/m2 Mikal Woodson MD Work Phone: [facility] 05-27-2024 09:56-0500 Body temperature 97.3 [degF] Mikal Woodson MD Work Phone: [facility] 05-27-2024 09:56-0500 Body weight 48.08 kg Mikal Woodson MD Work Phone: [facility] [employer] 05-06-2024 14:50-0500 Body height 167.6 cm Ovi Delacruz MD Work Phone: [facility] 05-06-2024 14:50-0500 Body mass index (BMI) [Ratio] 17.75 kg/m2 Ovi Delacruz MD Work Phone: [facility] 05-06-2024 14:50-0500 Body temperature 98.01 [degF] Ovi Delacruz MD Work Phone: [facility] 05-06-2024 14:50-0500 Body weight 49.9 kg Ovi Delacruz MD Work Phone: [employer] 05-06-2024 14:50-0500 Diastolic blood pressure 68 mm[Hg] Ovi Delacruz MD Work Phone: [facility] 05-06-2024 14:50-0500 Heart rate 78 /min Ovi Delacruz MD Work Phone: [facility] 05-06-2024 14:50-0500 Respiratory rate 16 /min Ovi Delacruz MD Work Phone: [facility] 05-06-2024 14:50-0500 SaO2% (BldA) [Mass fraction] 100 % Ovi Delacruz MD Work Phone: [facility] 05-06-2024 14:50-0500 Systolic blood pressure 115 mm[Hg] Ovi Delacruz MD Work Phone: [facility] 07-16-2023 20:45-0400 Body temperature 97.6 [degF] [facility] 07-16-2023 20:45-0400 Diastolic blood pressure 65 mm[Hg] [facility] 07-16-2023 20:45-0400 Heart rate 87 /min [facility] 07-16-2023 20:45-0400 Respiratory rate 16 /min [facility] 07-16-2023 20:45-0400 SaO2% (BldA) [Mass fraction] 97 % [facility] 07-16-2023 20:45-0400 Systolic blood pressure 100 mm[Hg] [facility] 07-16-2023 18:58-0400 Body height 167.64 cm [facility] 07-16-2023 18:58-0400 Body mass index (BMI) [Percentile] Per age and sex 0.7 % [facility] 07-16-2023 18:58-0400 Body mass index (BMI) [Ratio] 16.5 kg/m2 [facility] 07-16-2023 18:58-0400 Body weight 46.43 kg [facility] 12-08-2022 19:58-0400 Diastolic blood pressure 71 mm[Hg] [facility] 12-08-2022 19:58-0400 Heart rate 82 /min [facility] 12-08-2022 19:58-0400 Respiratory rate 14 /min [facility] 12-08-2022 19:58-0400 SaO2% (BldA) [Mass fraction] 98 % [facility] 12-08-2022 19:58-0400 Systolic blood pressure 101 mm[Hg] [facility] 12-08-2022 17:18-0400 Body height 167.64 cm [facility] 12-08-2022 17:18-0400 Body mass index (BMI) [Percentile] Per age and sex 1.4 % [facility] 12-08-2022 17:18-0400 Body mass index (BMI) [Ratio] 16.7 kg/m2 [facility] 12-08-2022 17:18-0400 Body temperature 97.5 [degF] [facility] 12-08-2022 17:18-0400 Body weight 47.21 kg [facility] 10-04-2022 12:36-0400 Body mass index (BMI) [Percentile] Per age and sex 3 % [facility] 10-04-2022 12:36-0400 Body mass index (BMI) [Ratio] 17.1 kg/m2 [facility] 10-04-2022 12:36-0400 Body temperature 96.9 [degF] [facility] 10-04-2022 12:36-0400 Body weight 48.2 kg [facility] 10-04-2022 12:36-0400 Diastolic blood pressure 68 mm[Hg] [facility] 10-04-2022 12:36-0400 Heart rate 70 /min [facility] 10-04-2022 12:36-0400 Respiratory rate 14 /min [facility] 10-04-2022 12:36-0400 SaO2% (BldA) [Mass fraction] 100 % [facility] 10-04-2022 12:36-0400 Systolic blood pressure 115 mm[Hg] [facility] 01-14-2022 22:17-0400 Heart rate 84 /min [facility] Work Phone: 01-14-2022 22:17-0400 Respiratory rate 17 /min [facility] Work Phone: 01-14-2022 22:17-0400 SaO2% (BldA) [Mass fraction] 97 % [facility] Work Phone: 01-14-2022 20:48-0400 Body height 167.64 cm [facility] Work Phone: 01-14-2022 20:48-0400 Body mass index (BMI) [Percentile] Per age and sex 19.5 % [facility] Work Phone: 01-14-2022 20:48-0400 Body mass index (BMI) [Ratio] 18.7 kg/m2 [facility] Work Phone: 01-14-2022 20:48-0400 Body temperature 98.4 [degF] [facility] Work Phone: 01-14-2022 20:48-0400 Body weight 52.6 kg [facility] Work Phone: 01-14-2022 20:48-0400 Diastolic blood pressure 79 mm[Hg] [facility] Work Phone: 01-14-2022 20:48-0400 Systolic blood pressure 118 mm[Hg] [facility] Work Phone: Encounters Encounter Date Encounter Type Care Provider Facility Start: 09-12-2024 End: 09-12-2024 Office outpatient visit 15 minutes Aurea Rodriguez DO Work Phone: [facility] Comment on above: care, first in second trimester (Primary Dx); Recurrent UTI (urinary tract infection) complicating , first trimester; Iron deficiency anemia, unspecified iron deficiency anemia type Start: 09-12-2024 End: 09-12-2024 ambulatory KI BREEN [facility] Start: 09-04-2024 End: 09-05-2024 Emergency department patient visit Ovi Delacruz MD Work Phone: [facility] EM[facility]Y [facility]PT Comment on above: Acute cystitis with hematuria (Primary Dx); Calcium oxalate calculus; Bacterial vaginosis; Nicki vaginitis Start: 08-10-2024 End: 08-10-2024 ambulatory KI BREEN [facility] Start: 08-10-2024 End: 08-10-2024 Office outpatient visit 15 minutes Ki Breen DO Work Phone: [facility] Comment on above: Dysuria (Primary Dx) ; Encounter for supervision of normal first , first trimester; care, first in second trimester; Iron deficiency anemia secondary to inadequate dietary iron intake Start: 08-06-2024 End: 08-06-2024 Telephone encounter Gloria Ohara MD Work Phone: [facility] [employer] Start: 08-06-2024 End: 08-06-2024 ambulatory [facility] Start: 08-06-2024 End: 08-06-2024 Subsequent hospital visit by physician Marian Coughlin DO Work Phone: [facility] OB Triage H2 Start: 07-19-2024 End: 07-19-2024 ambulatory [facility] Start: 07-17-2024 End: 07-17-2024 Office outpatient visit 15 minutes Kaitlin Aiken DO Work Phone: [facility] Comment on above: Encounter for superv ision in primigravida, antepartum (Primary Dx); Vaping nicotine dependence, tobacco product Start: 07-17-2024 End: 07-17-2024 [facility] Start: 06-29-2024 End: 06-29-2024 Office outpatient new 30 minutes Gloria Ohara MD Work Phone: [facility] Comment on above: Recurrent UTI (urina ry tract infection) complicating , first trimester (Primary Dx); Amenorrhea Start: 06-29-2024 End: 06-29-2024 Subsequent hospital visit by physician Karrie Velásquez DO Work Phone: [facility] Comment on above: Threatened Start: 06-29-2024 End: 06-29-2024 ambulatory [facility] Start: 06-26-2024 End: 06-26-2024 Orders Only Vick Cortez MD Work Phone: [facility] Comment on above: Recurrent UTI (urina ry tract infection) complicating , first trimester (Primary Dx) Start: 06-25-2024 End: 06-25-2024 [facility] Start: 06-25-2024 End: 06-25-2024 Transitional care manage srvc 14 day discharge Mayo Maguire MD Work Phone: [facility] Comment on above: Recurrent UTI (urina ry tract infection) complicating , first trimester (Primary Dx) Start: 06-14-2024 End: 06-14-2024 Orders Only Alli Sharif DO Work Phone: [facility] [employer] Comment on above: Threatened (Primary Dx) Start: 06-14-2024 End: 06-16-2024 [facility] Start: 06-14-2024 End: 06-16-2024 Emergency department patient visit Zahira Graham DO Work Phone: [facility] Observation Unit 5E Comment on above: Pyelonephritis affec ting , antepartum (Primary Dx) Start: 05-27-2024 End: 05-27-2024 Subsequent hospital visit by physician [facility] [employer] [facility] Radiology Comment on above: Arrived Start: 05-27-2024 End: 05-27-2024 Emergency department patient visit Mikal Woodson MD Work Phone: [facility] ED Comment on above: Acute cough (Primary Dx); Dysuria Start: 05-25-2024 End: 05-25-2024 Emergency department patient visit Ronald Burleson Facility:[facility] Start: 05-06-2024 End: 05-06-2024 Emergency department patient visit Ovi Delacruz MD Work Phone: [facility] ED Comment on above: Lower abdominal pain (Primary Dx); Acute cystitis with hematuria Start: 07-25-2023 End: 07-25-2023 Emergency department patient visit JOE FARMER [facility] Start: 07-22-2023 End: 07-23-2023 ambulatory [facility] Start: 07-22-2023 End: 07-22-2023 Subsequent hospital visit by physician Jeremy Vásquez MD Work Phone: [facility] Comment on above: Diarrhea, unspecifie d type Start: 07-20-2023 End: 07-21-2023 ambulatory [facility] Start: 07-20-2023 End: 07-20-2023 ambulatory [facility] Start: 07-20-2023 End: 07-20-2023 Subsequent hospital visit by physician Jeremy Vásquez MD Work Phone: [facility] Comment on above: Weight loss Start: 07-16-2023 End: 07-16-2023 Emergency department patient visit [facility] Work Phone: Start: 04-29-2023 End: 04-29-2023 ambulatory [facility] Facility:[facility] Start: 04-05-2023 End: 04-05-2023 Emergency department patient visit JOE FARMER [facility] Start: 12-09-2022 End: 12-09-2022 ambulatory BRYSON L [facility] Start: 12-08-2022 End: 12-08-2022 Emergency department patient visit [facility] Work Phone: Start: 10-04-2022 End: 10-04-2022 Emergency department patient visit [facility] Work Phone: Start: 08-18-2022 End: 08-18-2022 ambulatory [facility] Work Phone: Start: 08-18-2022 End: 08-18-2022 Patient encounter procedure [facility] Ul[facility]ound Start: 08-13-2022 End: 08-13-2022 ambulatory [facility] Start: 01-14-2022 End: 01-14-2022 Emergency department patient visit [facility] Procedures Date Procedure Procedure Detail Performing Clinician Start: 09-12-2024 Urnls dip stick/tabl et rgnt auto w/o microscopy Aurea Rodriguez DO Work Phone: Start: 09-05-2024 Us retroperitoneal r eal time w/image complete Marcio Davis MD Work Phone: Start: 09-04-2024 Bacterial vaginosis and vaginitis rRNA panel - Vaginal fluid by Probe Sanchez Dickey MD Work Phone: Start: 09-04-2024 Iadna chlamydia trac homatis amplified probe tq Sanchez Dickey MD Work Phone: Start: 09-04-2024 Culture bacterial quanttative colony count urine Ovi Delacruz MD Work Phone: Start: 08-06-2024 Ecg routine ecg w/le ast 12 lds trcg only w/o i&r Gloria Ohara MD Work Phone: Start: 08-06-2024 Glucose quantitative blood xcpt reagent strip Marian Coughlin DO Work Phone: Start: 06-29-2024 Antibody screen OVI DELACRUZ Comment on above: Performed By: #### L [id number] #### Rope Twisting Machine Operator: ISABEL YUSUF ([id number]) [facility] ([address] Start: 06-29-2024 End: 06-29-2024 Antibody screen rbc each serum technique Gloria Ohara MD Work Phone: Start: 06-29-2024 Blood count complete automated Gloria Ohara MD Work Phone: Start: 06-29-2024 Iaad ia hepatitis b surface antigen Gloria Ohara MD Work Phone: Start: 06-29-2024 Us preg uterus real time w/image dcmtn transvag Alli Sharif DO Work Phone: Start: 06-25-2024 Culture bacterial quanttative colony count urine Vick Cortez MD Work Phone: Start: 06-16-2024 Comprehensive metabo lic panel Katia Kaylee Soliman DO Work Phone: Start: 06-15-2024 Culture bacterial quanttative colony count urine Katia Soliman DO Work Phone: Start: 06-15-2024 URINE HOLD CUP Katia Soliman DO Work Phone: Start: 06-15-2024 Comprehensive metabo lic panel Katia Soliman DO Work Phone: Start: 06-14-2024 Us retroperitoneal r eal time w/image complete Katia Soliman DO Work Phone: Start: 06-14-2024 Iadna chlamydia trac homatis amplified probe tq Katia Soliman DO Work Phone: Start: 06-14-2024 Ecg routine ecg w/le ast 12 lds trcg only w/o i&r Katia Soliman DO Work Phone: Start: 06-14-2024 Us transvaginal Jamari Ivan ELECTRONICS TECHNICIAN - NIGHT CLERK AUDITOR Work Phone: Start: 06-14-2024 Bacterial vaginosis and vaginitis rRNA panel - Vaginal fluid by Probe Zahira Vines [email or web address] DO Work Phone: Start: 06-14-2024 Basic metabolic pane l calcium total Zahira Vines [email or web address] DO Work Phone: Start: 06-14-2024 Hepatitis c antibody Ph yvette Soliman DO Work Phone: Start: 06-14-2024 Urinalysis complete panel - Urine Zahira Vines [email or web address] DO Work Phone: Start: 06-14-2024 Urine test visual color cmprsn meths Zahira Vines [email or web address] DO Work Phone: Start: 06-14-2024 Urnls dip stick/tabl et reagent auto microscopy Zahira Vines [email or web address] DO Work Phone: Start: 05-27-2024 Radiologic exam ches t 2 views Mikal Woodson MD Work Phone: Start: 05-27-2024 Urinalysis complete panel - Urine Mikal Woodson MD Work Phone: Start: 05-27-2024 Urine test visual color cmprsn meths Mikal Woodson MD Work Phone: Start: 05-27-2024 Urnls dip stick/tabl et reagent auto microscopy Mikal Woodson MD Work Phone: Start: 05-06-2024 Urinalysis complete panel - Urine Ovi Delacruz MD Work Phone: Start: 05-06-2024 Urine test visual color cmprsn jaz Ovi Delacruz MD Work Phone: Start: 05-06-2024 Urnls dip stick/tabl et reagent auto microscopy Ovi Delacruz MD Work Phone: Start: 07-25-2023 Urinalysis JOE FARMER Comment on above: Result Comment: URIN ALYSIS Performed By: #### [id number] #### [facility],[address] [place] [address] Start: 07-20-2023 C-reactive protein Jeremy Vásquez MD Work Phone: Start: 07-20-2023 COMPLETE BLOOD COUNT WITH DIFFERENTIAL Jeremy Vásquez MD Work Phone: Start: 07-20-2023 Comprehensive metabo lic 2000 panel - Serum or Plasma Jeremy Vásquez MD Work Phone: Start: 07-20-2023 Ferritin [Mass/volum e] in Serum or Plasma Jeremy Vásquez MD Work Phone: Start: 07-20-2023 IMMUNOGLOBULIN A Jeremy Vásquez MD Work Phone: Start: 07-20-2023 Iron [Mass/volume] i n Serum or Plasma Jeremy Vásquez MD Work Phone: Start: 07-20-2023 TSH WITH REFLEX TO T4, FREE Jeremy Vásquez MD Work Phone: Start: 07-16-2023 SARS-CoV-2, Influenz a & RSV (PCR) Start: 10-04-2022 Trichomonas vaginali s detection Start: 10-04-2022 Urine culture Start: 08-18-2022 Ultrasonography of breast Start: 01-14-2022 Plain x-ray of hand Plan of Treatment Date Care Activity Detail Author Start: 12-25-2079 RSV Immunization for Adults (1 - 1-dose 75+ series) RSV Immunization for Adults (1 - 1-dose 75+ series) [facility] Start: 2054 Zoster Vaccines (1 of 2) Zoster Vacc rosendo (1 of 2) [facility] Start: 01-12-2026 DTaP/Tdap/Td Vaccine s (7 - Td or Tdap) DTaP/Tdap/Td Vaccines (7 - Td or Tdap) [facility] Start: 01-12-2026 Tetanus Diphtheria a nd Pertussis Vaccines (7 - Td or Tdap) Tetanus Diphtheria and Pertussis Vaccines (7 - Td or Tdap) [facility] Start: 09-04-2025 Screening for Chlamy demar trachomatis Chlamydia and Gonorrhea Screening [facility] Start: 06-29-2025 Screening for Chlamy demar trachomatis Chlamydia and Gonorrhea Screening [facility] Start: 2024 Influenza vaccination Influenz a Vaccine (Season Ended) [facility] Start: 2024 RSV Immunization for Adults (1 - Risk 1-dose series) RSV Immunization for Adults (1 - Risk 1-dose series) [facility] Start: 10-24-2024 End: 12-11-2024 CBC panel - Blood by Automated count CBC Lab Routine care, first in second trimester Iron deficiency anemia, unspecified iron deficiency anemia type Expected: 10/24/2024 (Approximate), Expires: 12/11/2024 [facility] Comment on above: Expected: 10/24/2024 (Approximate), Expires: 12/11/2024 Start: 10-24-2024 End: 12-11-2024 Glucose Challenge Screen, Glucose Challenge Screen, Lab Routine care, first in second trimester Expected: 10/24/2024 (Approximate), Expires: 12/11/2024 [facility] Work Phone: Comment on above: Expected: 10/24/2024 (Approximate), Expires: 12/11/2024 Start: 10-10-2024 End: 10-10-2024 Patient encounter procedure 10/10/2024 8:40 AM EDT Routine [facility] [address] [place] [id number] Modesto Cano DO [address] [facility] [place] [address] [facility] Start: 09-12-2024 End: 09-12-2024 Patient encounter procedure [facility] Start: 09-12-2024 Subsequent hospital visit by physician 09/12/2024 9:00 AM EDT Hospital Encounter [facility] [address] [place] [phone] [facility] Start: 08-14-2024 End: 08-14-2024 Patient encounter procedure 08/14/2024 8:30 AM EDT Routine [facility] [address] [place] [address] Karo Delcid, DO [address] [place] [address] [facility] Start: 08-10-2024 End: 08-10-2025 US for US OB 14+ weeks anatomy scan Imaging Routine Encounter for supervision of normal first , first trimester Expected: 08/10/2024, Expires: 08/10/2025 [facility] Work Phone: Comment on above: Expected: 08/10/2024 , Expires: 08/10/2025 Start: 08-10-2024 End: 08-10-2024 Patient encounter procedure 08/10/2024 12:30 PM EDT Routine [facility] [address] [place] [id number] [facility] Start: 07-19-2024 End: 07-19-2024 ambulatory 07/19/2024 9:00 AM EDT Initial [facility] [address] [place] [phone] [facility] Start: 07-17-2024 End: 07-17-2024 Patient encounter procedure 07/17/2024 8:40 AM EDT Routine [facility] [address] [place] [phone] Kaitlin Aiken DO [address] [place] [address] [address] [facility] Start: 06-29-2024 End: 06-29-2024 Patient encounter procedure [facility] Start: 06-29-2024 Subsequent hospital visit by physician 06/29/2024 12:30 PM EST Hospital Encounter [facility] [address] [place] [phone] Karrie Velásquez DO [address] [facility] [place] [address] [place] [address] [facility] Start: 06-25-2024 End: 06-25-2024 Patient encounter procedure 06/25/2024 2:50 PM EST Office Visit [facility] [place] [address] [place] [phone] Vick Cortez MD [address] [place] [address] [facility] Start: 06-14-2024 End: 06-14-2025 US for US OB less than 14 weeks early Imaging Routine Threatened Expected: 06/14/2024, Expires: 06/14/2025 [facility] Work Phone: Comment on above: Expected: 06/14/2024 , Expires: 06/14/2025 Start: 12-25-2023 COVID-19 Vaccine ( season) COVID-19 Vaccine ( season) [facility] Start: 12-25-2023 Influenza vaccination Influenza Vacc ine (#1) [facility] Start: 07-16-2023 [facility] Start: 2022 COVID-19 (2022- 4 season) COVID-19 (2022- season) [facility] Start: 2022 FLU (#1) FLU (#1) [facility] Start: 2022 Hearing Screening Hearing Screening [facility] Start: 2022 Hepatitis C screening Hepatitis C Sc reening [facility] Start: 07-14-2022 Well Visit Well Visit [facility] Start: 01-14-2022 Meningococcal B Vacc ine (2 of 2 - Bexsero SCDM 2-dose series) Meningococcal B Vaccine (2 of 2 - Bexsero SCDM 2-dose series) [facility] Start: 08-11-2021 MenB (2 of 2 - MenB 2-Dose Series Bexsero) MenB (2 of 2 - MenB 2-Dose Series Bexsero) [facility] Start: 12-25-2019 Vision Screening Vision Screening [facility] Start: 2016 Depression Screening Depression Scre ening [facility] Start: 08-23-2005 Application of denta l fluoride varnish Fluoride Varnish [facility] Start: 2004 HIV screening HIV Screening [facility] End: 05-27-2024 Bacteria identified in Urine by Culture [facility] Work Phone: Comment on above: STAT (Lab) for 1 Occ urrences starting 05/27/2024 until 05/27/2024 Once for 1 Occurrenc es starting 05/27/2024 until 05/27/2024 End: 06-15-2024 Bacteria identified in Urine by Culture [facility] Work Phone: Comment on above: Once (Lab) for 1 Occ urrences starting 06/15/2024 until 06/15/2024 Once for 1 Occurrenc es starting 06/15/2024 until 06/15/2024 Bacteria identified in Urine by Culture Urine culture (clean catch) Microbiology Routine Recurrent UTI (urinary tract infection) complicating , first trimester 06/25/2024 3:33 PM EST [employer] Work Phone: Bacteria identified in Urine by Culture Urine culture Microbiology Routine Recurrent UTI (urinary tract infection) complicating , first trimester 06/29/2024 1:54 PM EST [employer] Work Phone: Bacteria identified in Urine by Culture Urine culture Microbiology Routine Dysuria 08/10/2024 2:53 PM EDT [facility] Bacteria identified in Urine by Culture Urine culture Microbiology Routine care, first in second trimester Recurrent UTI (urinary tract infection) complicating , first trimester 09/12/2024 11:09 AM EDT [facility] ECG 12 lead ECG 12 lead CV E CG STAT 08/06/2024 12:55 PM EDT [facility] Hemoglobinopathy evaluation Hemoglobinopathy evaluation Lab Routine Amenorrhea 06/29/2024 1:54 PM EST [facility] Horizon 14 (Morel-Ethn ic Standard) Horizon 14 (Morel-Ethnic Standard) Lab Routine Encounter for supervision in primigravida, antepartum 07/17/2024 9:03 AM EDT [facility] Work Phone: PANORAMA TEST PANORAMA TEST Lab Routine Encounter for supervision in primigravida, antepartum 07/17/2024 9:03 AM EDT [facility] Patient Education [facility] Work Phone: Patient referral [facility] Work Phone: End: 08-06-2024 POCT Ketone, urine manually resulted [facility] Work Phone: Comment on above: Once (Lab) for 1 Occ urrences starting 08/06/2024 until 08/06/2024 End: 07-22-2023 Stool Enteric culture (Lab Collect) [facility] Work Phone: Comment on above: 1 Occurrences starti ng 07/22/2023 until 07/22/2023 End: 07-22-2023 Stool Giardia and Cryptosporidium Screen [facility] Comment on above: 1 Occurrences starti ng 07/22/2023 until 07/22/2023 End: 07-20-2023 Transglutaminase IgA [facility] Work Phone: Comment on above: 1 Occurrences starti ng 07/20/2023 until 07/20/2023 End: 05-27-2024 Urine Hold Cup Urine Hold Cup Lab Timed Once for 1 Occurrences starting 05/27/2024 until 05/27/2024 [facility] Comment on above: Once for 1 Occurrenc es starting 05/27/2024 until 05/27/2024 End: 06-15-2024 Urine Hold Cup Urine Hold Cup Lab Timed Once for 1 Occurrences starting 06/15/2024 until 06/15/2024 [facility] Comment on above: Once for 1 Occurrenc es starting 06/15/2024 until 06/15/2024 End: 06-29-2024 US for [facility] [employer] Work Phone: Comment on above: Once for 1 Occurrenc es starting 06/29/2024 until 06/29/2024 Immunizations Immunization Date Immunization Notes Care Provider Roxanna thomas 07-14-2021 influenza, injectabl e, quadrivalent, preservative free Jeremy Vásquez MD Work Phone: [facility] 07-14-2021 meningococcal B vacc ine, recombinant, OMV, adjuvanted Jeremy Vásquez MD Work Phone: [facility] 07-14-2021 meningococcal polysaccharide (groups A, C, Y and W-135) diphtheria toxoid conjugate vaccine (MCV4P) Jeremy Vásquez MD Work Phone: [facility] 07-14-2021 influenza virus vacc ine, unspecified formulation Ovi Delacruz MD Work Phone: [facility] [employer] 04-08-2020 influenza, injectabl e, quadrivalent, preservative free Jeremy Vásquez MD Work Phone: [facility] 03-19-2019 influenza, injectabl e, quadrivalent, preservative free Jeremy Vásquez MD Work Phone: [facility] 03-09-2018 hepatitis A vaccine, pediatric/adolescent dosage, 2 dose schedule Jeremy Vásquez MD Work Phone: [facility] 03-09-2018 influenza, injectabl e, quadrivalent, preservative free Jeremy Vásquez MD Work Phone: [facility] 01-17-2017 Human Papillomavirus 9-valent vaccine Jeremy Vásquez MD Work Phone: [facility] 01-17-2017 influenza, injectabl e, quadrivalent, preservative free Jeremy Vásquez MD Work Phone: [facility] 01-13-2016 Human Papillomavirus 9-valent vaccine Jeremy Vásquez MD Work Phone: [facility] 01-13-2016 meningococcal polysaccharide (groups A, C, Y and W-135) diphtheria toxoid conjugate vaccine (MCV4P) Jeremy Vásquez MD Work Phone: [facility] 01-13-2016 tetanus toxoid, redu nadja diphtheria toxoid, and acellular pertussis vaccine, adsorbed Jeremy Vásquez MD Work Phone: [facility] 04-10-2013 influenza, injectabl e, quadrivalent, preservative free Jeremy Vásquez MD Work Phone: [facility] 01-28-2012 influenza virus vacc ine, split virus (incl. purified surface antigen) Jeremy Vásquez MD Work Phone: [facility] 09-25-2009 diphtheria, tetanus toxoids and acellular pertussis vaccine Jeremy Vásquez MD Work Phone: [facility] 09-25-2009 measles, mumps, rube lla, and varicella virus vaccine Jeremy Vásquez MD Work Phone: [facility] 09-25-2009 poliovirus vaccine, inactivated Jeremy Vásquez MD Work Phone: [facility] 03-14-2007 influenza virus vacc ine, unspecified formulation Jeremy Vásquez MD Work Phone: [facility] 09-28-2006 hepatitis A vaccine, adult dosage Jeremy Vásquez MD Work Phone: [facility] 04-15-2006 diphtheria, tetanus toxoids and acellular pertussis vaccine Jeremy Vásquez MD Work Phone: [facility] 04-15-2006 hepatitis A vaccine, adult dosage Jeremy Vásquez MD Work Phone: [facility] 04-15-2006 influenza virus vacc ine, unspecified formulation Jeremy Vásquez MD Work Phone: [facility] 04-15-2006 pneumococcal conjuga te vaccine, 7 valent Jeremy Vásquez MD Work Phone: [facility] 01-10-2006 haemophilus influenz ae type b vaccine, PRP-T conjugate Jeremy Vásquez MD Work Phone: [facility] 01-10-2006 measles, mumps and rubella virus vaccine Jeremy Vásquez MD Work Phone: [facility] 01-10-2006 varicella virus vaccine Jeremy Vásquez MD Work Phone: [facility] 09-29-2005 diphtheria, tetanus toxoids and acellular pertussis vaccine Jeremy Vásquez MD Work Phone: [facility] 09-29-2005 haemophilus influenz ae type b vaccine, PRP-T conjugate Jeremy Vásquez MD Work Phone: [facility] 09-29-2005 hepatitis B vaccine, pediatric or pediatric/adolescent dosage Jeremy Vásquez MD Work Phone: [facility] 09-29-2005 pneumococcal conjuga te vaccine, 7 valent Jeremy Vásquez MD Work Phone: [facility] 09-29-2005 poliovirus vaccine, inactivated Jeremy Vásquez MD Work Phone: [facility] 06-29-2005 diphtheria, tetanus toxoids and acellular pertussis vaccine Jeremy Vásquez MD Work Phone: [facility] 06-29-2005 haemophilus influenz ae type b vaccine, PRP-T conjugate Jeermy Vásquez MD Work Phone: [facility] 06-29-2005 hepatitis B vaccine, pediatric or pediatric/adolescent dosage Jeremy Vásquez MD Work Phone: [facility] 06-29-2005 pneumococcal conjuga te vaccine, 7 valent Jeremy Vásquez MD Work Phone: [facility] 06-29-2005 poliovirus vaccine, inactivated Jeremy Vásquez MD Work Phone: [facility] 05-16-2005 influenza virus vacc ine, unspecified formulation Jeremy Vásquez MD Work Phone: [facility] 03-08-2005 diphtheria, tetanus toxoids and acellular pertussis vaccine Jeremy Vásquez MD Work Phone: [facility] 03-08-2005 haemophilus influenz ae type b vaccine, PRP-T conjugate Jeremy Vásquez MD Work Phone: [facility] 03-08-2005 hepatitis B vaccine, pediatric or pediatric/adolescent dosage Jeremy Vásquez MD Work Phone: [facility] 03-08-2005 pneumococcal conjuga te vaccine, 7 valent Jeremy Vásquez MD Work Phone: [facility] 03-08-2005 poliovirus vaccine, inactivated Jeremy Vásquez MD Work Phone: [facility] 2004 hepatitis B vaccine, pediatric or pediatric/adolescent dosage Jeremy Vásquez MD Work Phone: [facility] Payers Date Payer Category Payer Medicaid [id number] 2024 Medicaid HMO [facility] [id number] 2023 Self-pay [id number] 2023 Unknown [id number] 2021 Unknown [employer] [facility] [id number] 2021-Present [address] [place] [address] [id number] 2004 Unknown [id number] 2004 Unknown [id number] 2004 Unknown [id number] 2004 Unknown [id number] 1979 Unknown [id number] 1979 Unknown [id number] Unknown [employer] [id number] Unknown [id number] Unknown [id number] Social History Date Type Detail Facility Start: 01-14-2022 End: 07-16-2023 Tobacco smoking status NHIS Unknown if ever smoked [facility] Start: 2005 Sex Assigned At Female [facility] Start: 04-06-2022 End: 07-19-2024 Tobacco smoking status NHIS Never smoked tobacco [facility] History of tobacco use Passive smoker [facility] Start: 04-06-2022 Tobacco use and exposure User of smokeless tobacco [facility] Start: 07-20-2023 Alcoholic beverage intake Not Asked [facility] Start: 07-20-2023 End: 07-19-2024 History of Social function [facility] Start: 07-20-2023 End: 07-19-2024 Tobacco use panel [facility] Adolescent depressio n screening assessment 3 [facility] Start: 2004 Sex assigned at Not on file A [facility] Start: 05-06-2024 End: 07-19-2024 Tobacco use and exposure Smokeless tobacco non-user [facility] Start: 05-06-2024 End: 07-17-2024 Alcoholic beverage intake Lifetime non-drinker (finding) [facility] How often to you hav e a drink containing alcohol? Never [facility] Start: 05-06-2024 Sex Female (finding) [facility] Has the [employer], or [employer] threatened to shut off services in your home in past 12Mo No [facility] (I/We) worried fco er (my/our) food would run out before (I/we) got money to buy more. Never true [facility] Start: 08-06-2024 End: 09-12-2024 Alcoholic beverage intake Ex-drinker (finding) [facility] Are you now , , , , never or living with a partner? Never [facility] How hard is it for y ou to pay for the very basics like food, housing, medical care, and heating Not very hard [facility] Do you feel stress - tense, restless, nervous, or anxious, or unable to sleep at night because your mind is troubled all the time - these days [OSQ] To some extent [facility] Start: 07-19-2024 Alcohol Comment socially befor e [facility] Start: 05-23-2024 [facility] NEGATED: Highlighted row [facility] Work Phone: NEGATED: Highlighted row [facility] Goals Date Patient Goal Desired Activity /State Personal health goal Functional Status Date Assessment Result Facility 09-04-2024 Total score [AUDIT-C] 0 09/05/19 25 1:36 PM EDT Ami Palacios RN [facility] Mental Status Date Assessment Result Facility 07-16-2023 Cognitive function Level Of Cons ciousness Awake;Alert;Appropriate;Follow s Commands [facility] Work Phone: 12-08-2022 Cognitive function Level Of Cons ciousness Awake;Alert;Appropriate;Follow s Commands [facility] Work Phone: Clinical Notes 04-29-2023 to 09-12-2024 Aurea Rodriguez DO - 09/12/2024 10:00 AM EDTJenndale Alfonso MA - 09/12/2024 10:00 AM EDTPatient InstructionsAssessment & Plan Note - Aurea Rodriguez DO - 09/10/2024 6:50 PM EDTDischarge Instructions Note Date & Type Note Facility 09-12-2024 History of Presen t illness Narrative Images from the original note were not included. Assessment and Plan: Vaping nicotine dependence, tobacco product Patient states she is not using any type of nicotine product at this time she has slowly stopped using the patches continued cessation encouraged , supervision of first Doing well, No OB complaints BP normotensive FHR: 150s Anatomy US today, read pending Reviewed triage precautions GTT and rCBC ordered for 24wk Iron deficiency anemia rCBC ordered for 24wk Recurrent UTI (urinary tract infection) complicating , first trimester Negative urine culture 09/04 Repeat UA and culture today as she feels like she might be having some UTI symptoms and also reports history of kidney stones Chief Complaint Patient presents with Routine Visit Discuss short term disability 18 y.o. yo at 18w0d Here today for MOHIT She has been dealing with a GI infection with E. Coli. States she was seen in the ED for GI symptoms and was not started on any type of antibiotic and that it would run its course. She reports some diarrhea but denies significant nausea/vomiting. Denies DFM/VB/CTX/LOF ROS: No pelvic pain. Some LLQ cramping. PE: Vitals: 09/12/24 1019 BP: 104/65 Pulse: 79 Body mass index is 18.54 kg/m . PE: Gen: NAD, A&Ox3 HEENT: NC/AT, EOMI Abd: LLQ tenderness to palpation, uterus palpable on exam Skin: warm/dry BLE: without edema, non-tender Follow up in about 4 weeks (around 10/10/2024) for Routine OB. Cosigned by Lynda Neal MD at 09/12/2024 11:23 AM EDT Associated attestation - Lynda Neal MD - 09/12/2024 11:23 AM EDT [facility]: This patient was [facility] by the resident. I reviewed and agree with the care provided by the resident during or immediately following the visit including the patient's medical history, the resident's finding in the physical exam, patient's diagnosis and treatment plan. [employer]- declined Pt had a bout with kidney stones recently and is asking about short term disability per her job. documented in this encounter [facility] 09-12-2024 Instructions Aurea Rodriguez DO - 09/12/2024 10:00 AM EDT Your Second Trimester: Care Instructions What you can expect During this time, you may start to show, so that you look to people around you. You will also start to feel baby move. At first, these small movements feel like fluttering or butterflies. Some women say that they feel like gas bubbles. As your baby grows, these movements will become stronger. You may also notice that your baby hiccups. Babies at this stage can now suck their thumbs. You may find that your nausea and fatigue are gone. You may feel better overall and have more energy than you did in your first trimester. But you might now also have some new discomforts, like sleep problems or leg cramps. Talk to your doctor about things you can do at home to ease these problems. Proper Weight Gain in Experts recommend that you gain about 1 pound a month during the first 3 months of your . Experts recommend that you gain about 1 pound a week during your last 6 months of , for a total weight gain of 25 to 35 pounds. If you are underweight, you will need to gain more weight (about 28 to 40 pounds). If you are overweight, you may not need to gain as much weight (about 15 to 25 pounds). If you are gaining weight too fast, use common sense. Exercise every day, and limit sweets, fast foods, and fats. Choose lean meats, fruits, and vegetables. Follow-up care is a bustamante part of your treatment and safety. Be sure to make and go to all appointments, and call your doctor if you are having problems. It's also a good idea to know your test results and keep a list of the medicines you take. You can expect an anatomy ultrasound at 18-20 weeks. If your is uncomplicated, this may be the only ultrasound you need Most women are tested for gestational diabetes between weeks 24 and 28. Gestational diabetes occurs when your blood sugar level gets too high when you're . The test is important, because you can have gestational diabetes and not know it. But the condition can cause problems for your baby. Talk to your doctor about getting a flu shot to help keep you healthy during your . When to call your doctor Call 911 anytime you think you may need emergency care. For example, call if: You have severe vaginal bleeding. You have sudden, severe pain in your belly. You passed out (lost consciousness). You have a seizure. You see or feel the umbilical cord. You think you are about to deliver your baby and can't make it safely to the hospital. Call your doctor now or seek immediate medical care if: You have vaginal bleeding. You have belly pain. You have a fever. You have symptoms of preeclampsia, such as: Sudden swelling of your face, hands, or feet. New vision problems (such as dimness, blurring, or seeing spots). A severe headache. You have a sudden release of fluid from your vagina. (You think your water broke.) You think that you may be in labor. This means that you've had at least 6 contractions in an hour. You notice that your baby has stopped moving or is moving much less than normal. You have symptoms of a urinary tract infection. These may include: Pain or burning when you urinate. A frequent need to urinate without being able to pass much urine. Pain in the flank, which is just below the rib cage and above the waist on either side of the back. Blood in your urine. documented in this encounter [facility] 09-10-2024 Evaluation + Plan note Associated Problem(s): Recurrent UTI (urinary tract infection) complicating , first trimester Negative urine culture 09/04 Repeat UA and culture today as she feels like she might be having some UTI symptoms and also reports history of kidney stones [facility] 09-10-2024 Evaluation + Plan note Associated Problem(s): Iron deficiency anemia rCBC ordered for 24wk [facility] 09-10-2024 Miscellaneous Notes Associated Problem(s): Recurrent UTI (urinary tract infection) complicating , first trimester Negative urine culture 09/04 Repeat UA and culture today as she feels like she might be having some UTI symptoms and also reports history of kidney stones Associated Problem(s): Iron deficiency anemia rCBC ordered for 24wk Associated Problem(s): , supervision of first Doing well, No OB complaints BP normotensive FHR: 150s Anatomy US today, read pending Reviewed triage precautions GTT and rCBC ordered for 24wk Associated Problem(s): Vaping nicotine dependence, tobacco product Patient states she is not using any type of nicotine product at this time she has slowly stopped using the patches continued cessation encouraged documented in this encounter [facility] 09-10-2024 Evaluation + Plan note Associated Problem(s): , supervision of first Doing well, No OB complaints BP normotensive FHR: 150s Anatomy US today, read pending Reviewed triage precautions GTT and rCBC ordered for 24wk [facility] 09-10-2024 Evaluation + Plan note Associated Problem(s): Vaping nicotine dependence, tobacco product Patient states she is not using any type of nicotine product at this time she has slowly stopped using the patches continued cessation encouraged [facility] 09-05-2024 Emergency department Note Discharge instructions reviewed with pt and she had no further questions. Pt walked out with a steady gait observed and no distress noted. [facility] 09-05-2024 Emergency department Note Discharge instructions reviewed with pt and she had no further questions. Pt walked out with a steady gait observed and no distress noted. Patient and significant other exited [facility] ED for an ED to ED transfer to [facility] so that patient can get the ordered ultrasound. Patient IV in place upon leaving [facility] as per provider permission. Patient verbalized understanding of instructions and departed without incident. Report called to Charge nurse Yin RN for ED to ED transfer. Pt traveling by private car. heart tones assessed 153 bpm. EMERGENCY DEPARTMENT ENCOUNTER Pt Name: Sumit Green Birthdate 2005 Date of evaluation: 09/04/2024 CHIEF COMPLAINT Chief Complaint Patient presents with Abdominal Pain HISTORY OF PRESENT ILLNESS HPI Sumit Green is a 18 y.o. female who presents to the emergency department with abdominal pain mainly on the left side, started less than 16 hours ago, it is improving. He has associated nausea. No vomiting some diarrhea no difficulty urinating no fever. No alcohol use recently. Pain is intermittent now. Nature was lasting for approximately 15 minutes now. Boyfriend reports she needs a work note. Patient's last menstrual period was 05/09/2024. REVIEW OF SYSTEMS Review of Systems Problem List[1] CURRENT MEDICATIONS Previous Medications ALBUTEROL 108 (90 BASE) MCG/ACT INHALER Inhale 2 puffs every 4 hours as needed for wheezing. DOXYLAMINE (UNISOM) 25 MG TABLET Take 1 tablet (25 mg) by mouth Nightly as needed for sleep. FERROUS SULFATE 325 (65 FE) MG TABLET Take 325 mg by mouth daily (with breakfast). NICOTINE (NICODERM, STEP 3) 7 MG/24HR PATCH Place 1 patch on the skin Every 24 hours. 27-1 MG TABLET Take 1 tablet by mouth daily. PYRIDOXINE (VITAMIN B-6) 25 MG TABLET Take 1 tablet (25 mg) by mouth every 8 hours. ALLERGIES Patient has no known allergies. SOCIAL HISTORY Social History[2] PHYSICAL EXAM Vitals: 09/04/24 1332 BP: 102/64 BP Location: Right arm Patient Position: Lying Pulse: 78 Resp: 16 Temp: 36.4 C (97.6 F) TempSrc: Oral SpO2: 100% Physical Exam Vitals and nursing note reviewed. Constitutional: Appearance: She is not toxic-appearing. Abdominal: General: Bowel sounds are normal. Palpations: Abdomen is soft. Tenderness: There is abdominal tenderness. There is left CVA tenderness. There is no guarding. Negative signs include Morgan's sign. Hernia: No hernia is present. Skin: General: Skin is warm. Coloration: Skin is not jaundiced. Neurological: Mental Status: She is alert. Psychiatric: Behavior: Behavior normal. SCREENINGS [place] Com[place] Scale Best Eye Response: Spontaneous Best Verbal Response: Oriented Best Motor Response: Follows commands [place] Coma Scale Score: 15 Medical decision making DIAGNOSTIC RESULTS Procedures/EKG: Physician EKG interpretation can be found in [facility] if done Radiologist results reviewed: No orders to display LABS: Labs Reviewed COMPLETE URINALYSIS WITH REFLEX TO CULTURE - Abnormal Result Value Color, Urine Yellow Clarity, Urine Extra Turbid (*) pH, Urine 6.0 Leukocytes, Urine 500 (*) Nitrite, Urine Negative Protein, Urine 20 (*) Glucose, Urine Normal Bilirubin, Urine Negative Ketones, Urine Negative Urobilinogen, Urine Normal Blood, Urine Negative Volume, Urine 8-12 mL RBC, Urine 3-5 (*) WBC, Urine 11-25 (*) Squamous Epithelial, Urine 11-25 (*) Bacteria, Urine Many (*) Calcium Oxalate Crystals, Urine Few (*) SPECIFIC GRAVITY OF URINE (NUMERIC) 1.019 Narrative: A specimen with <=10 WBC is not consistent with inflammation. This specimen will not reflex to a urine culture. This specimen has been reflexed to urine culture. URINE CULTURE RADIOLOGY : Medications ordered: Medications acetaminophen (Tylenol) tablet 650 mg (650 mg Oral Not Given 09/04/24 1358) cephalexin (Keflex) capsule 500 mg (has no administration in time range) ED Course as of 09/05/24 0314 Tue September 04, 2024 1341 US OB less than 14 weeks early (06/29/24 1232) Prior medical records were reviewed: Ordered by J2EE CONSULTANT IUP [NM] 1342 Urine culture (08/11/24 1125) Prior medical records were reviewed: normal [NM] 1342 Chlamydia/Gonorrhea (06/29/24 1721) Prior medical records were reviewed:ordered by ob, normal [NM] 1342 Trichomonas vaginalis PCR (06/29/24 1656) Prior medical records were reviewed: ordered by ob normal [NM] ED Course User Index [NM] Ovi Delacruz MD Diagnoses as of 09/05/24 0314 Acute cystitis with hematuria Calcium oxalate calculus Bacterial vaginosis Nicki vaginitis * No order type specified * Our workup consisted of ordering/reviewing: Orders Placed This Encounter Procedures Urine culture Urinalysis complete with reflex to Culture Assess heart tones MDM: 18 y.o. presented with abdominal pain. The differential diagnosis considered: UTI, kidney stone, round ligament pain, gastric intestinal virus infection,. Given hematuria and calcium stones in the urine patient needs ultrasound. Cannot have CT secondary to . Diagnostic tests considered but not performed: Ultrasound retroperitoneum. Not available at this facility. REVAL: CRITICAL CARE TIME PROCEDURES: Procedures FINAL IMPRESSION 1. Acute cystitis with hematuria 2. Calcium oxalate calculus DISPOSITION/PLAN DISPOSITION Transfer To [facility] Ed 09/04/2024 06:41:20 PM To [facility] emergency department for renal retroperitoneal ultrasound to evaluate for hydronephrosis kidney stone. PATIENT REFERRED TO: No follow-up provider specified. I prescribed: New Prescriptions No medications on file (Comment: this report has been produced using speech recognition software and may contain errors related to that system including errors in grammar, punctuation, and spelling, as well as words and phrases that may be inappropriate) Ovi Delacruz MD (electronically signed) Ovi Delacruz MD 09/04/24 9738 [1] Patient Active Problem List Diagnosis Recurrent UTI (urinary tract infection) complicating , first trimester Iron deficiency anemia , supervision of first Vaping nicotine dependence, tobacco product [2] Social History Tobacco Use Smoking status: Never Passive exposure: Current (education given) Smokeless tobacco: Never Vaping Use Vaping status: Every Day Substance Use Topics Alcohol use: Not Currently Comment: socially before Drug use: Never Pt ambulatory to room 6 with c/o left sided abdominal pain since last night. Pt describes pain as intermittent pain with no modifying factors. Pt reports she is 16 weeks with LMP 05/06/2024. No change in movement. Pt denies any vaginal bleeding or discharge. Pt reports having concerns of yeast infection. Pt denies any dysuria. Pt reports having diarrhea. documented in this encounter [facility] 09-05-2024 Hospital Discharg e instructions Sanchez Dickey MD - 09/05/2024 3:21 AM EDT You were diagnosed with a kidney stone, please take tylenol as needed for pain. You will also be sent home with a referral to Urology, please call and make an appointment. You were also diagnosed with a Uti and bacterial vaginosis, please scrap picker antibiotics from your pharmacy and take as prescribed. You were also diagnosed with nicki vaginitis, a yeast infection, please use antifungal cream and apply as prescribed. Please follow up with your PCP and your OBGYN within the next 1 week. If Symptoms worsen, please return to ER. The following attachments cannot be sent through Care Everywhere.Kidney Stone, Adult ED (Australian)documented in this encounter [facility] 09-04-2024 Emergency department Note Patient and significant other exited [facility] ED for an ED to ED transfer to [facility] so that patient can get the ordered ultrasound. Patient IV in place upon leaving [facility] as per provider permission. Patient verbalized understanding of instructions and departed without incident. [facility] 09-04-2024 Emergency department Note Report called to Charge nurse Yin RN for ED to ED transfer. Pt traveling by private car. [facility] 09-04-2024 Emergency department Note heart tones assessed 153 bpm. [facility] 09-04-2024 Emergency department Triage note Pt ambulatory to room 6 with c/o left sided abdominal pain since last night. Pt describes pain as intermittent pain with no modifying factors. Pt reports she is 16 weeks with LMP 05/06/2024. No change in movement. Pt denies any vaginal bleeding or discharge. Pt reports having concerns of yeast infection. Pt denies any dysuria. Pt reports having diarrhea. [facility] 09-04-2024 Physician Emergency department Note EMERGENCY DEPARTMENT ENCOUNTER Pt Name: Sumit Green Birthdate 2005 Date of evaluation: 09/04/2024 CHIEF COMPLAINT Chief Complaint Patient presents with Abdominal Pain HISTORY OF PRESENT ILLNESS HPI Sumit Green is a 18 y.o. female who presents to the emergency department with abdominal pain mainly on the left side, started less than 16 hours ago, it is improving. He has associated nausea. No vomiting some diarrhea no difficulty urinating no fever. No alcohol use recently. Pain is intermittent now. Nature was lasting for approximately 15 minutes now. Boyfriend reports she needs a work note. Patient's last menstrual period was 05/09/2024. REVIEW OF SYSTEMS Review of Systems Problem List[1] CURRENT MEDICATIONS Previous Medications ALBUTEROL 108 (90 BASE) MCG/ACT INHALER Inhale 2 puffs every 4 hours as needed for wheezing. DOXYLAMINE (UNISOM) 25 MG TABLET Take 1 tablet (25 mg) by mouth Nightly as needed for sleep. FERROUS SULFATE 325 (65 FE) MG TABLET Take 325 mg by mouth daily (with breakfast). NICOTINE (NICODERM, STEP 3) 7 MG/24HR PATCH Place 1 patch on the skin Every 24 hours. 27-1 MG TABLET Take 1 tablet by mouth daily. PYRIDOXINE (VITAMIN B-6) 25 MG TABLET Take 1 tablet (25 mg) by mouth every 8 hours. ALLERGIES Patient has no known allergies. SOCIAL HISTORY Social History[2] PHYSICAL EXAM Vitals: 09/04/24 1332 BP: 102/64 BP Location: Right arm Patient Position: Lying Pulse: 78 Resp: 16 Temp: 36.4 C (97.6 F) TempSrc: Oral SpO2: 100% Physical Exam Vitals and nursing note reviewed. Constitutional: Appearance: She is not toxic-appearing. Abdominal: General: Bowel sounds are normal. Palpations: Abdomen is soft. Tenderness: There is abdominal tenderness. There is left CVA tenderness. There is no guarding. Negative signs include Morgan's sign. Hernia: No hernia is present. Skin: General: Skin is warm. Coloration: Skin is not jaundiced. Neurological: Mental Status: She is alert. Psychiatric: Behavior: Behavior normal. SCREENINGS [place] Coma Scale Best Eye Response: Spontaneous Best Verbal Response: Oriented Best Motor Response: Follows commands [place] Coma Scale Score: 15 Medical decision making DIAGNOSTIC RESULTS Procedures/EKG: Physician EKG interpretation can be found in [facility] if done Radiologist results reviewed: No orders to display LABS: Labs Reviewed COMPLETE URINALYSIS WITH REFLEX TO CULTURE - Abnormal Result Value Color, Urine Yellow Clarity, Urine Extra Turbid (*) pH, Urine 6.0 Leukocytes, Urine 500 (*) Nitrite, Urine Negative Protein, Urine 20 (*) Glucose, Urine Normal Bilirubin, Urine Negative Ketones, Urine Negative Urobilinogen, Urine Normal Blood, Urine Negative Volume, Urine 8-12 mL RBC, Urine 3-5 (*) WBC, Urine 11-25 (*) Squamous Epithelial, Urine 11-25 (*) Bacteria, Urine Many (*) Calcium Oxalate Crystals, Urine Few (*) SPECIFIC GRAVITY OF URINE (NUMERIC) 1.019 Narrative: A specimen with <=10 WBC is not consistent with inflammation. This specimen will not reflex to a urine culture. This specimen has been reflexed to urine culture. URINE CULTURE RADIOLOGY : Medications ordered: Medications acetaminophen (Tylenol) tablet 650 mg (650 mg Oral Not Given 09/04/24 1358) cephalexin (Keflex) capsule 500 mg (has no administration in time range) ED Course as of 09/05/24 0314 TueSeptember 04, 2024 134 US OB less than 14 weeks early (06/29/24 1232) Prior medical records were reviewed: Ordered by J2EE CONSULTANT IUP [NM] 1342 Urine culture (08/11/24 1125) Prior medical records were reviewed: normal [NM] 1342 Chlamydia/Gonorrhea (06/29/24 1721) Prior medical records were reviewed:ordered by ob, normal [NM] 1342 Trichomonas vaginalis PCR (06/29/24 1656) Prior medical records were reviewed: ordered by ob normal [NM] ED Course User Index [NM] Ovi Delacruz MD Diagnoses as of 09/05/24 0314 Acute cystitis with hematuria Calcium oxalate calculus Bacterial vaginosis Nicki vaginitis * No order type specified * Our workup consisted of ordering/reviewing: Orders Placed This Encounter Procedures Urine culture Urinalysis complete with reflex to Culture Assess heart tones MDM: 18 y.o. presented with abdominal pain. The differential diagnosis considered: UTI, kidney stone, round ligament pain, gastric intestinal virus infection,. Given hematuria and calcium stones in the urine patient needs ultrasound. Cannot have CT secondary to . Diagnostic tests considered but not performed: Ultrasound retroperitoneum. Not available at this facility. REVAL: CRITICAL CARE TIME PROCEDURES: Procedures FINAL IMPRESSION 1. Acute cystitis with hematuria 2. Calcium oxalate calculus DISPOSITION/PLAN DISPOSITION Transfer To [facility] 09/04/2024 06:41:20 PM To [facility] emergency department for renal retroperitoneal ultrasound to evaluate for hydronephrosis kidney stone. PATIENT REFERRED TO: No follow-up provider specified. I prescribed: New Prescriptions No medications on file (Comment: this report has been produced using speech recognition software and may contain errors related to that system including errors in grammar, punctuation, and spelling, as well as words and phrases that may be inappropriate) Ovi Delacruz MD (electronically signed) Ovi Delacruz MD 09/04/24 1843 [1] Patient Active Problem List Diagnosis Recurrent UTI (urinary tract infection) complicating , first trimester Iron deficiency anemia , supervision of first Vaping nicotine dependence, tobacco product [2] Social History Tobacco Use Smoking status: Never Passive exposure: Current (education given) Smokeless tobacco: Never Vaping Use Vaping status: Every Day Substance Use Topics Alcohol use: Not Currently Comment: socially before Drug use: Never [facility] 08-10-2024 Evaluation + Plan note Associated Problem(s): Iron deficiency anemia Hgb 11.0 on NOB labs, plan to repeat around 24 weeks. [facility] 08-10-2024 Miscellaneous Notes Associated Problem(s): Iron deficiency anemia Hgb 11.0 on NOB labs, plan to repeat around 24 weeks. Associated Problem(s): , supervision of first Patient doing well, having some mild nausea but does not want any stronger medications. She had a dating US but has not gotten NT, will not be able to get her in by 14 weeks. Anatomy scan ordered and message sent to scheduler maintenance. Having a boy. Complaining of dysuria today, she had a E coli UTI in May which was treated with Macrobid. Urine culture sent today. Would like work restrictions as she works at [employer]. Letter in chart. documented in this encounter [facility] 08-10-2024 Evaluation + Plan note Associated Problem(s): , supervision of first Patient doing well, having some mild nausea but does not want any stronger medications. She had a dating US but has not gotten NT, will not be able to get her in by 14 weeks. Anatomy scan ordered and message sent to scheduler maintenance. Having a boy. Complaining of dysuria today, she had a E coli UTI in May which was treated with Macrobid. Urine culture sent today. Would like work restrictions as she works at [employer]. Letter in chart. [facility] 08-10-2024 History of Presen t illness Narrative Assessment and Plan: , supervision of first Patient doing well, having some mild nausea but does not want any stronger medications. She had a dating US but has not gotten NT, will not be able to get her in by 14 weeks. Anatomy scan ordered and message sent to scheduler maintenance. Having a boy. Complaining of dysuria today, she had a E coli UTI in May which was treated with Macrobid. Urine culture sent today. Would like work restrictions as she works at [employer]. Letter in chart. Iron deficiency anemia Hgb 11.0 on NOB labs, plan to repeat around 24 weeks. Chief Complaint Patient presents with Routine Visit 13 weeks, 2 days. No c/o. 18 y.o. yo at 13w2d Here today for MOHIT No acute complaints. Having some mild cramping but not consistent. Denies LOF/VB ROS: No pelvic pain + dysuria PE: Vitals: 08/10/24 1243 BP: 93/64 Pulse: 103 Body mass index is 18.47 kg/m . PE: Gen: NAD, A&Ox3 HEENT: NC/AT, EOMI Abd: nontender, uterus palpable on exam Skin: warm/dry BLE: without edema, nontender ASA Indications High Risk Indication for Daily ASA: none Two Moderate Risk Indication for Daily ASA: None ASA prescribed: No, Not Indicated Follow up in about 4 weeks (around 09/07/2024) for MOHIT. Cosigned by Ryan Ferrara MD at 08/10/2024 3:44 PM EDT Associated attestation - Ryan Ferrara MD - 08/10/2024 3:44 PM EDT [facility]: This patient was seen in [facility] by the resident. I reviewed and agree with the care provided by the resident during or immediately following the visit including the patient's medical history, the resident's finding in the physical exam, patient's diagnosis and treatment plan. Sumit Green was seen in the Obstetrics ED. Please see chart note for details. documented in this encounter [facility] 08-10-2024 Instructions Ki Breen DO - 08/10/2024 12:30 PM EDT Your Second Trimester: Care Instructions What you can expect During this time, you may start to show, so that you look to people around you. You will also start to feel baby move. At first, these small movements feel like fluttering or butterflies. Some women say that they feel like gas bubbles. As your baby grows, these movements will become stronger. You may also notice that your baby hiccups. Babies at this stage can now suck their thumbs. You may find that your nausea and fatigue are gone. You may feel better overall and have more energy than you did in your first trimester. But you might now also have some new discomforts, like sleep problems or leg cramps. Talk to your doctor about things you can do at home to ease these problems. Proper Weight Gain in Experts recommend that you gain about 1 pound a month during the first 3 months of your . Experts recommend that you gain about 1 pound a week during your last 6 months of , for a total weight gain of 25 to 35 pounds. If you are underweight, you will need to gain more weight (about 28 to 40 pounds). If you are overweight, you may not need to gain as much weight (about 15 to 25 pounds). If you are gaining weight too fast, use common sense. Exercise every day, and limit sweets, fast foods, and fats. Choose lean meats, fruits, and vegetables. Follow-up care is a bustamante part of your treatment and safety. Be sure to make and go to all appointments, and call your doctor if you are having problems. It's also a good idea to know your test results and keep a list of the medicines you take. You can expect an anatomy ultrasound at 18-20 weeks. If your is uncomplicated, this may be the only ultrasound you need Most women are tested for gestational diabetes between weeks 24 and 28. Gestational diabetes occurs when your blood sugar level gets too high when you're . The test is important, because you can have gestational diabetes and not know it. But the condition can cause problems for your baby. Talk to your doctor about getting a flu shot to help keep you healthy during your . When to call your doctor Call 911 anytime you think you may need emergency care. For example, call if: You have severe vaginal bleeding. You have sudden, severe pain in your belly. You passed out (lost consciousness). You have a seizure. You see or feel the umbilical cord. You think you are about to deliver your baby and can't make it safely to the hospital. Call your doctor now or seek immediate medical care if: You have vaginal bleeding. You have belly pain. You have a fever. You have symptoms of preeclampsia, such as: Sudden swelling of your face, hands, or feet. New vision problems (such as dimness, blurring, or seeing spots). A severe headache. You have a sudden release of fluid from your vagina. (You think your water broke.) You think that you may be in labor. This means that you've had at least 6 contractions in an hour. You notice that your baby has stopped moving or is moving much less than normal. You have symptoms of a urinary tract infection. These may include: Pain or burning when you urinate. A frequent need to urinate without being able to pass much urine. Pain in the flank, which is just below the rib cage and above the waist on either side of the back. Blood in your urine. documented in this encounter [facility] 08-06-2024 Nurse Note Patient educated on return precautions and discharged home at this time. Pt denies questions [facility] 08-06-2024 Nurse Note Patient educated on return precautions and discharged home at this time. 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 Treatment Verification: Sumit Green was assessed on Labor and Delivery for a related visit on 08/06/24 . PETRA MACHUCA DO [facility] documented in this encounter [facility] 08-06-2024 History of Presen t illness Narrative Department of Obstetrics and Gynecology Labor and Delivery Triage Note CHIEF CONCERN: Syncope HISTORY OF PRESENT ILLNESS: The patient is a 18 y.o. at 12w5d who presents with the above chief concern. Reports she has been noting that when she is standing for long periods of time she will feel faint and almost collapse. States she sits down prior to fully losing consciousness. Cannot quantify how much time it takes prior to her feeling faint. Denies full episode of syncope, denies head trauma, denies seizure like activity. Denies VB and cramping. 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 Estimated Due Date: Estimated Date of Delivery: 02/13/25 CARE: Complicated by: anemia DETAILED OB HISTORY: OB History 1 Para 0 Term AB Living SAB IAB Ectopic Multiple Live Births Obstetric Comments Plans to breastfeed OB History Para Term AB Living 1 0 SAB IAB Ectopic Multiple Live Births # Outcome Date GA Lbr Morales/2nd Weight Sex Type Anes PTL Lv 1 Current Obstetric Comments Plans to breastfeed PAST MEDICAL HISTORY: History reviewed. No pertinent past medical history. PAST SURGICAL HISTORY: History reviewed. No pertinent surgical history. MEDICATIONS: Prior to Admission medications Medication Sig Start Date End Date Taking? Authorizing Provider albuterol 108 (90 Base) MCG/ACT inhaler Inhale 2 puffs every 4 hours as needed for wheezing. Patient not taking: Reported on 07/19/2024 05/27/24 06/26/24 Mikal Woodson MD doxylamine (Unisom) 25 MG tablet Take 1 tablet (25 mg) by mouth Nightly as needed for sleep. 06/29/24 07/29/24 Gloria Ohara MD ferrous sulfate 325 (65 Fe) MG tablet Take 325 mg by mouth daily (with breakfast). Historical Provider, nicotine (Nicoderm, Step 3) 7 MG/24HR patch Place 1 patch on the skin Every 24 hours. 06/29/24 10/27/24 Gloria Ohara MD 27-1 MG tablet Take 1 tablet by mouth daily. 06/16/24 Katia Soliman DO pyridoxine (Vitamin B-6) 25 MG tablet Take 1 tablet (25 mg) by mouth every 8 hours. 06/29/24 09/27/24 Gloria Ohara MD REVIEW OF SYSTEMS: Pertinent items are noted in HPI. APPEARANCE: Pain: No PHYSICAL EXAM: Vital Signs: VS wnl-reviewed/Respirations normal effort Vitals: 08/06/24 1229 BP: (!) 90/51 Pulse: 82 Resp: 18 Temp: 36.7 C (98.1 F) TempSrc: Oral General: NAD, resting comfortably Lungs : Normal WOB on RA Abdomen: soft, NT, ND, no rebound/guarding Uterus: gravid/non-tender Speculum Exam: defer LE Edema: trace RESULTS: heart rate: 150s bpm on BSUS GENERAL LABS: No results found for this or any previous visit (from the past 24 hours). TRIAGE COURSE: Pt presented with above. BP NT, slightly low. Urine ketones, POCT G, EKG, orthostatic vitals ordered and pending. Orthostatic BPs normal. Ketones negative. EKG sinus rhythm. BGT 79. Reviewed hydration in , compression stockings, frequent breaks at work, etc. Patient's next OB appointment scheduled for 08/10/24. Will discharge home at this time with return precautions. ESSION: Dizziness Pain assessment and plan: None Patient seen and evaluated and plan discussed with in house Triage Attending Dr. Coughlin SUGAR GRINDER PROVIDER: Dr. Machuca DISPOSITION: Discharge to Home Cosigned by Marian Coughlin DO at 08/06/2024 5:34 PM EDT Associated attestation - Marian Coughlin DO - 08/06/2024 5:34 PM EDT Hospital Care (Independent): I independently saw and evaluated the patient. I agree with the findings and plan of care as documented in the resident's note. Sumit Green was seen in the Obstetrics ED. Please see chart note for details. Follow up in the next 2-3 days. documented in this encounter [facility] 08-06-2024 Note Attempted to call [employer] to discuss her syncopal episodes and recommend evaluation in OB Triage. She did not respond, returned message on [employer]. Reached out to [facility] to get patient scheduled for MOHIT early this week. [facility] 08-06-2024 Telephone encounter Note Attempted to call patient to discuss her syncopal episodes and recommend evaluation in OB Triage. She did not respond, returned message on [employer]. Reached out to [facility] to get patient scheduled for MOHIT early this week. [facility] 08-06-2024 Miscellaneous Notes Attempted to call patient to discuss her syncopal episodes and recommend evaluation in OB Triage. She did not respond, returned message on [employer]. Reached out to [facility] to get patient scheduled for MOHIT early this week. documented in this encounter [facility] 07-17-2024 Evaluation + Plan note Associated Problem(s): Vaping nicotine dependence, tobacco product Continue use of nicotine patches Counseling provided and cessation encouraged [facility] 07-17-2024 Note Continue use of иван elvia patches Counseling provided and cessation encouraged [facility] 07-17-2024 Miscellaneous Notes Associated Problem(s): Vaping nicotine dependence, tobacco product Continue use of nicotine patches Counseling provided and cessation encouraged Associated Problem(s): , supervision of first Patient doing well, denies OB sx Reviewed TVUS and NOB labs NIPT and Horizon ordered today Continue routine OB care Discussed return precautions documented in this encounter [facility] 07-17-2024 Evaluation + Plan note Associated Problem(s): , supervision of first Patient doing well, denies OB sx Reviewed TVUS and NOB labs NIPT and Horizon ordered today Continue routine OB care Discussed return precautions [facility] 07-17-2024 History of Presen t illness Narrative Vital signs BP 113/73 Weight 117lb Pulse 87 Temp 113/73 Images from the original note were not included. Sumit Green 07/17/2024 18 y.o. Chief Complaint Patient presents with Follow-up Patient's last menstrual period was 05/09/2024. Primary CarePhysician: Jeremy Nelson OB Visit Subjective: Gestational Age: Unknown Estimated Due Date: Estimated Date of Delivery: None noted. Chief Complaint Patient presents with Follow-up HPI: Sumit Green is a 18 y.o. female presents today for initial OB appointment at ~9w dated by LMP. Patient doing well without complaints. Nausea and vomiting in first trimester: positive. Patient currently taking vitamin or multivitamin with folic acid: yes. Denies cramping or vaginal bleeding. History of Previous : N/A History of 3rd/4th Degree Laceration: N/A Previous Garcia : N/A Genetic Carrier Screening in Prior : Yes Date of Last Pap Smear: N/A History of STIs: No Cats at Home: Yes. 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 Objective: There were no vitals filed for this visit. There is no height or weight on file to calculate BMI. Physical Exam: General: NAD, A&Ox3 HEENT: Normocephalic, atraumatic Abdomen: Nontender, uterus palpable on exam Skin: Warm/dry LE: No edema bilaterally, no calf tenderness or swelling SSE/SVE: Deferred Assessment/Plan: , supervision of first Patient doing well, denies OB sx Reviewed TVUS and NOB labs NIPT and Horizon ordered today Continue routine OB care Discussed return precautions Vaping nicotine dependence, tobacco product Continue use of nicotine patches Counseling provided and cessation encouraged Follow up in about 4 weeks (around 08/14/2024) for MOHITIssa Aiken DO 07/17/2024, 9:10 AM Cosigned by Lynda Neal MD at 07/17/2024 3:29 PM EDT Associated attestation - Lynda Neal MD - 07/17/2024 3:29 PM EDT [facility]: [facility] by the resident. I reviewed and agree with the care provided by the resident during or immediately following the visit including the patient's medical history, the resident's finding in the physical exam, patient's diagnosis and treatment plan. Pt had Joselyn drawn from the right arm. Pt tolerated well. documented in this encounter [facility] 07-17-2024 Instructions Kaitlin Aiken DO - 07/17/2024 8:40 AM EDT Images from the original note were not included. Your First Trimester: Care Instructions During the first trimester of (12 weeks), your body goes through many changes. Your baby grows very quickly, even though you can't feel it yet. You may start to feel different, both in your body and your emotions. Because each is unique, there's no right way to feel. You may feel the healthiest you've ever been, or you might feel tired or sick to your stomach (morning sickness). Follow-up care is a bustamante part of your treatment and safety. Be sure to make and go to all appointments, and call your doctor if you are having problems. It's also a good idea to know your test results and keep a list of the medicines you take. What You Can Expect Once you have a positive , you should come to the office for confirmation of , and you will get an ultrasound to confirm when your estimated due date is. Many labs are drawn, and an exam is performed. These include: A pap smear, which is a screening for cervical cancer Screening for sexually transmitted diseases, such as HIV, syphillis, hepatis, chlamydia and gonorrhea. Although you might be low risk, these are very improtant Blood tests to test for anemia, or blood clotting issues Screening for diabetes Genetic screening for defects Screening for diseases that could run in your family You may have a repeat ultrasound between 11 and 13 weeks called a Nuchal Translucency. This is a screening for defects in baby's back or skin, and to look at the baby's heart Generally, patients should have a visit every 4 weeks during this time Eat a Healthy Diet Take a Vitamin every day Avoid foods that could harm your baby. Do not eat raw or undercooked meat, chicken, or fish (such as sushi or raw oysters). Do not eat raw eggs or foods that contain raw eggs, such as Caesar dressing. Do not eat soft cheeses and unpasteurized dairy foods, such as Brie, feta, or blue cheese. Do not eat fish that contains a lot of mercury, such as shark, swordfish, tilefish, or wilfredo mackerel. Limit some other types of fish, such as white (albacore) tuna, to 4 oz (0.1 kg) a week. Do not eat raw sprouts, especially alfalfa sprouts. Cut down on caffeine, such as coffee, tea, and cola. Take care of yourself and your baby Avoid Drugs or alcohol during . There is no safe amount of alcohol during , at any gestational age Exercise is important during . At least 30 minutes of excersize is recommended daily, and can just be a brisk walk Do not touch renaldo litter or cat feces. They can cause an infection that could harm your baby. High body temperature can be harmful to your baby. So if you want to use a sauna or hot tub, be sure to talk to your doctor about how to use it safely. Smoking and those who smoke When you're , everything you put in your body can affect your baby. If you smoke, your baby is exposed to chemicals such as nicotine and carbon monoxide. Smoking during increases the chance of: Placenta problems. (The placenta is an organ that gives the baby oxygen and nutrients from the mother and gets rid of waste.) . The baby is born too soon. Miscarriage or stillbirth. defects, such as a cleft lip. early in life, mainly because of sudden infant syndrome (SIDS). A baby with a low weight. If you smoke, there are many ways to cut down or quit! Ask your doctor or mechanical maintenance foreman about ways to quit. Carver with morning sickness Sip small amounts of water, juices, or shakes. Try drinking between meals, not with meals. Eat 5 or 6 small meals a day. Try dry toast or crackers when you first get up, and eat breakfast a little later. Avoid spicy, greasy, and fatty foods. When having difficulty eating, try the BRAT Diet to make it easier to eat Bananas Rice Applesauce Experiment Try nausea wristbands. These help some women Try Kayli capsules 250 mg 4 times per day If you are unable to eat or drink anything for 24 hours, you should call your doctor When to call your doctor Call 911 anytime you think you may need emergency care. For example, call if: You passed out (lost consciousness). Call your doctor now or seek immediate medical care if: You have a fever unresolved after taking tylenol (Acetaminophen) at home You have vaginal bleeding. You are dizzy or lightheaded, or you feel like you may faint. You have symptoms of a urinary tract infection. These may include: Pain or burning when you urinate. A frequent need to urinate without being able to pass much urine. Pain in the flank, which is just below the rib cage and above the waist on either side of the back. Blood in your urine. You have persistent belly pain. You think you are having contractions. You have a sudden release of fluid from your vagina. Watch closely for changes in your health, and be sure to contact your doctor if: You have vaginal discharge that smells bad. You have other concerns about your . Where Can I Learn More? [email or web address]://[email or web address].org/womens-heal th Medications safe to take during Type of Remedy: Allergy Diphenhydramine (Benadryl ) Loratidine (Claritin ) Cetirizine (Zyrtec ) Type of Remedy: Cold and Flu Diphenhydramine (Benadryl)* Dextromethorphan (Robitussin )* Guaifenesin (Mucinex [plain]) * Vicks Vapor Rub mentholated cream Mentholated or non-mentholated cough drops (Sugar-free cough drops for gestational diabetes should not contain blends of herbs or aspartame) Pseudoephedrine ([Sudafed ] after 1st trimester) Acetaminophen (Tylenol )* Saline nasal drops or spray Warm salt/water gargle *Note: Do not take the SA (Sustained Action) form of these drugs or the Multi-Symptom form of these drugs. Do not use Nyquil due to its high alcohol content. Type of Remedy: Diarrhea Loperamide ([Imodium ] after 1st trimester, for 24 hours only) Type of Remedy: Constipation Methylcellulose fiber (Citrucel ) Docusate (Colace ) psyllium (Fiberall , Metamucil ) polycarbophil (FiberCon ) polyethylene glycol (MiraLAX )* *Occasional use only Type of Remedy: Headache Acetaminophen (Tylenol) Type of Remedy: Heartburn Aluminum hydroxide/magnesium carbonate (Gaviscon )* Famotidine (Pepcid AC ) Aluminum hydroxide/magnesium hydroxide (Maalox ) Calcium carbonate/magnesium carbonate (Mylanta ) Calcium carbonate (Titralac , Tums ) Ranitidine (Zantac ) *Occasional use only Type of Remedy: Hemorrhoids Phenylephrine/mineral oil/petrolatum (Preparation H ) Witch sumaya (Tucks pads or ointment) Type of Remedy: Sleep Diphenhydramine (Unisom SleepGels , Benadryl) *Please note: No drug can be considered 100% safe to use during . documented in this encounter [facility] 06-29-2024 History of Presen t illness Narrative Images from the original note were not included. Sumit Green 06/29/2024 18 y.o. Chief Complaint Patient presents with Follow-up U/S follow up No LMP recorded. Patient is . Primary CarePhysician: Jeremy Vásquez HPI: Sumit Green is a 18 y.o. female presents for amenorrhea visit. Admitted to medicine for pyelonephritis on 06/14 and also found to be at that time Treated with IV Rocephin then transitioned to PO Augmentin for 7 day out patient course, reports she did complete the treatment in full. She was recently seen on 06/25 in [facility] and endorses continued dysuria with a Ucx positive for [id number] CFU of E coli and per patient was not started on any meds. Today she endorses dysuria. Endorses some cramping. Denies fevers, chills, hematuria, flank pain, vaginal bleeding. She reports her LMP was May 09. TVUS on 06/14 demonstrated: gestational sac measuring approximately 13mm with estimated gestational age of 6 weeks 1 day noted a 1.8 cm subchorionic hemorrhage, heart rate not noted on ultrasound today. Patient was to have 2 week follow up US, performed today with read demonstrating FHR with ARVIND of 02/13/2025 at 7w2d P: 0 PMHx: Denies PSHx: Denies Allergies: NKDA Meds: Iron and PNV FamHx: Maternal gma- breast cancer Social Hx: Denies recreational drug use, vapes for two hits daily, trying to cut back. Works in [employer] and has been given appropriate accomodation for lifiting OB History Para Term AB Living 1 SAB IAB Ectopic Multiple Live Births # Outcome Date GA Lbr Morales/2nd Weight Sex Type Anes PTL Lv 1 Current No past medical history on file. 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 Please contact your purchasing administrator to configure this SmartLink. No family history on file. Social History Socioeconomic History Marital status: Single Spouse name: Not on file Number of children: Not on file Years of education: Not on file Highest education level: Not on file Occupational History Not on file Tobacco Use Smoking status: Never Smokeless tobacco: Never Vaping Use Vaping status: Every Day Substance and Sexual Activity Alcohol use: Never Drug use: Never Sexual activity: Not on file Other Topics Concern Not on file Social History Narrative Not on file Social Drivers of Health Financial Resource Strain: Not on file Food Insecurity: No Food Insecurity (06/14/2024) Hunger Vital Sign Worried About Running Out of Food in the Last Year: Never true Ran Out of Food in the Last Year: Never true Transportation Needs: No Transportation Needs (06/14/2024) PRAPARE - Transportation Lack of Transportation (Medical): No Lack of Transportation (Non-Medical): No Physical Activity: Not on file Stress: Not on file Social Connections: Not on file Intimate Partner Violence: Not At Risk (06/14/2024) Humiliation, Afraid, Rape, and Kick questionnaire Fear of Current or Ex-Partner: No Emotionally Abused: No Physically Abused: No Sexually Abused: No Housing Stability: Low Risk (06/14/2024) Housing Stability Vital Sign Unable to Pay for Housing in the Last Year: No Number of Times Moved in the Last Year: 0 Homeless in the Last Year: No MEDICATIONS: Current Outpatient Medications: albuterol 108 (90 Base) MCG/ACT inhaler, Inhale 2 puffs every 4 hours as needed for wheezing., Disp: 18 g, Rfl: 0 doxylamine (Unisom) 25 MG tablet, Take 1 tablet (25 mg) by mouth Nightly as needed for sleep., Disp: 30 tablet, Rfl: 0 ferrous sulfate 325 (65 Fe) MG tablet, Take 1 tablet (325 mg) by mouth daily (with breakfast)., Disp: 30 tablet, Rfl: 0 nicotine (Nicoderm, Step 3) 7 MG/24HR patch, Place 1 patch on the skin Every 24 hours., Disp: 30 patch, Rfl: 3 nitrofurantoin, macrocrystal-monohydrate, (Macrobid) 100 MG capsule, Take 1 capsule (100 mg) by mouth 2 times daily for 5 days., Disp: 10 capsule, Rfl: 0 nitrofurantoin, macrocrystal-monohydrate, (Macrobid) 100 MG capsule, Take 1 capsule (100 mg) by mouth 2 times daily for 7 days., Disp: 14 capsule, Rfl: 0 27-1 MG tablet, Take 1 tablet by mouth daily., Disp: 30 tablet, Rfl: 0 pyridoxine (Vitamin B-6) 25 MG tablet, Take 1 tablet (25 mg) by mouth every 8 hours., Disp: 90 tablet, Rfl: 1 ALLERGIES: No Known Allergies Review of Systems: Review of Systems Pertinent ROS per HPI Physical Exam: There were no vitals taken for this visit. Physical Exam Constitutional: Appearance: Normal appearance. Pulmonary: Effort: Pulmonary effort is normal. Abdominal: General: Abdomen is flat. Palpations: Abdomen is soft. Genitourinary: General: Normal vulva. Exam position: Supine. Vagina: Normal. Cervix: Normal. No discharge, lesion or cervical bleeding. Comments: No dilation of os Skin: General: Skin is warm and dry. Neurological: Mental Status: She is alert. ASSESSMENT & PLAN: No problem-specific Assessment & Plan notes found for this encounter. - Patient was to have 2 week follow up US, performed today with read demonstrating FHR with ARVIND of 02/13/2025 at 7w2d - NOB labs ordered today - Started patient on Macrobid for positive Ucx, Ucx repeated today - Speculum exam benign - Patient on PNV, prescribed B6 and Unisom for nausea with instructions to take before bed due to side effect profile - Provided safe meds list at check out - Follow up for RN OB intake and NOB in 2 weeks - Discussed location of OB triage and triage precautions - Sent in nicotine patch Follow up in about 2 weeks (around 07/13/2024) for MOHIT. Gloria Ohara MD 06/29/2024 12:06 PM Cosigned by Ryan Ferrara MD at 06/29/2024 2:14 PM EST Associated attestation - Ryan Ferrara MD - 06/29/2024 2:14 PM EST [facility]: This patient was seen in the [facility] by the resident. I reviewed and agree with the care provided by the resident during or immediately following the visit including the patient's medical history, the resident's finding in the physical exam, patient's diagnosis and treatment plan. VITALS- BP-100/68 HR-76 TEMP-98.2 F WEIGHT-105 LBS A dermatology technician was offered to be present during her exam. The patient: DECLINED documented in this encounter [facility] 06-29-2024 Instructions Gloria Ohara MD - 06/29/2024 1:30 PM EST Medications safe to take during Type of Remedy: Allergy Diphenhydramine (Benadryl ) Loratidine (Claritin ) Cetirizine (Zyrtec ) Type of Remedy: Cold and Flu Diphenhydramine (Benadryl)* Dextromethorphan (Robitussin )* Guaifenesin (Mucinex [plain]) * Vicks Vapor Rub mentholated cream Mentholated or non-mentholated cough drops (Sugar-free cough drops for gestational diabetes should not contain blends of herbs or aspartame) Pseudoephedrine ([Sudafed ] after 1st trimester) Acetaminophen (Tylenol )* Saline nasal drops or spray Warm salt/water gargle *Note: Do not take the SA (Sustained Action) form of these drugs or the Multi-Symptom form of these drugs. Do not use Nyquil due to its high alcohol content. Type of Remedy: Diarrhea Loperamide ([Imodium ] after 1st trimester, for 24 hours only) Type of Remedy: Constipation Methylcellulose fiber (Citrucel ) Docusate (Colace ) psyllium (Fiberall , Metamucil ) polycarbophil (FiberCon ) polyethylene glycol (MiraLAX )* *Occasional use only Type of Remedy: Headache Acetaminophen (Tylenol) Type of Remedy: Heartburn/Nausea Aluminum hydroxide/magnesium carbonate (Gaviscon )* Famotidine (Pepcid AC ) Aluminum hydroxide/magnesium hydroxide (Maalox ) Calcium carbonate/magnesium carbonate (Mylanta ) Calcium carbonate (Titralac , Tums ) Ranitidine (Zantac ) Zofran (ondansetron) Compazine Reglan Benadryl *Occasional use only Type of Remedy: Hemorrhoids Phenylephrine/mineral oil/petrolatum (Preparation H ) Witch sumaya (Tucks pads or ointment) Type of Remedy: Sleep Diphenhydramine (Unisom SleepGels , Benadryl) *Please note: No drug can be considered 100% safe to use during . documented in this encounter [facility] 06-26-2024 History of Presen t illness Narrative Based on Urine Culture Results showing growth of 50-90K E. Coli, will send in prescription for PO Macrobid 100 mg BID as this is the most safe in related UTI's. documented in this encounter [facility] 06-26-2024 Evaluation + Plan note Associated Problem(s): Recurrent UTI (urinary tract infection) complicating , first trimester - Patient is starting to notice burning and pain with urination during midstream which is bothersome since a few days after completing Antibiotic Course - As per HPI, no other systemic signs of infection - Will order repeat UA and Urine Culture for further detail and if triple positive for Leukocytes, Nitrites, and Bacteria will decide on best treatment course [facility] 06-26-2024 Miscellaneous Notes Associated Problem(s): Recurrent UTI (urinary tract infection) complicating , first trimester - Patient is starting to notice burning and pain with urination during midstream which is bothersome since a few days after completing Antibiotic Course - As per HPI, no other systemic signs of infection - Will order repeat UA and Urine Culture for further detail and if triple positive for Leukocytes, Nitrites, and Bacteria will decide on best treatment course documented in this encounter [facility] 06-26-2024 Miscellaneous Notes Associated Problem(s): Recurrent UTI (urinary tract infection) complicating , first trimester - Patient is starting to notice burning and pain with urination during midstream which is bothersome since a few days after completing Antibiotic Course - As per HPI, no other systemic signs of infection - Will order repeat UA and Urine Culture for further detail and if triple positive for Leukocytes, Nitrites, and Bacteria will decide on best treatment course documented in this encounter [facility] 06-25-2024 History of Presen t illness Narrative Patient refuses flu vaccine due to: (example reasons in parentheses) [] cost (insurance doesn't cover, less expensive elsewhere) [] risk (I always get sick after flu shots, side effects) [] mistrust (moneymaking conspiracy, dangerous chemicals, not safe, knows someone who got very sick from it) [] susceptibility (I never get the flu) [] inertia (I've never had one, so I don't want one) [x] other MA time with patient 5 minutes Images from the original note were not included. [facility] - [address] [facility] [address] Dept: [phone] Dept Loc: [phone] 06/25/2024 Visit type: inpatient follow up Reason for Visit: Hospital Follow-up (Uti, yeast infection, ) ASSESSMENT/PLAN 1. Recurrent UTI (urinary tract infection) complicating , first trimester Assessment & Plan: - Patient is starting to notice burning and pain with urination during midstream which is bothersome since a few days after completing Antibiotic Course - As per HPI, no other systemic signs of infection - Will order repeat UA and Urine Culture for further detail and if triple positive for Leukocytes, Nitrites, and Bacteria will decide on best treatment course Orders: - Urinalysis with reflex microscopic (clean catch) - Urine culture (clean catch) Follow up in 3 months (on 09/25/2024). Subjective Sumit Green is a 18 y.o. female presenting today for a Transitional Care Management Visit related to her recent hospital stay. MEGAN Green is a 18 y.o. female with no significant past medical history that presented to [facility] ED on 06/14/2024 with lightheadedness and nausea/vomiting along with dysuria, burning, increased urinary frequency, and itching. She was found to be 6 weeks and UA showed signs of UTI. She was started on IV ceftriaxone for presumable treatment of complicated UTI. She was admitted for further workup due to concerns of pyelonephritis given . Labs were negative for leukocytosis and she was hemodynamically stable. US retroperitoneal was unremarkable. She was then transitioned to Augmentin 875-125 mg BID for 7 more days and discharged home in stable condition. Patient comes in to the [facility] today for regularly scheduled hospital follow up. She has overall been doing well and does not appear to be in any acute distress. However, patient is starting to notice burning and pain with urination during midstream which is bothersome. She denies any nausea, vomiting, fevers/chills, or BL Flank Abdominal Pain. We talked about repeating a UA and Urine Culture to rule out any abnormalities given that she is currently and we need to be extra careful if any infection were to arise. Date of Hospital discharge: 06/16/2024 Date of non face to face post-discharge phone call: 06/18/2024 Call initiated 2 business days of discharge: yes Complexity of Medical Decision making for this visit: Moderate Detailed post-discharge medication reconciliation Current medication and discharge medication lists were reviewed and reconciled during today's visit - see below Instructed patient to take all discharge medications as prescribed except where otherwise noted in assessment & plan. Medications listed as ordered at the time of discharge from hospital: Outpatient Medications Prior to Visit Medication Sig Dispense Refill albuterol 108 (90 Base) MCG/ACT inhaler Inhale 2 puffs every 4 hours as needed for wheezing. 18 g 0 ferrous sulfate 325 (65 Fe) MG tablet Take 1 tablet (325 mg) by mouth daily (with breakfast). 30 tablet 0 27-1 MG tablet Take 1 tablet by mouth daily. 30 tablet 0 No facility-administered medications prior to visit. Reconciled medication list reflecting any changes from today's visit: Current Outpatient Medications: albuterol 108 (90 Base) MCG/ACT inhaler, Inhale 2 puffs every 4 hours as needed for wheezing., Disp: 18 g, Rfl: 0 ferrous sulfate 325 (65 Fe) MG tablet, Take 1 tablet (325 mg) by mouth daily (with breakfast)., Disp: 30 tablet, Rfl: 0 27-1 MG tablet, Take 1 tablet by mouth daily., Disp: 30 tablet, Rfl: 0 Review of Systems Constitutional: Negative for activity change, appetite change, chills, fatigue and fever. HENT: Negative for congestion. Eyes: Negative for visual disturbance. Respiratory: Negative for chest tightness. Cardiovascular: Negative for chest pain and palpitations. Gastrointestinal: Negative for abdominal distention and abdominal pain. Genitourinary: Positive for dysuria. Musculoskeletal: Negative for arthralgias and back pain. Skin: Negative for color change. Neurological: Negative for dizziness and headaches. Psychiatric/Behavioral: Negative for agitation, behavioral problems and confusion. No Known Allergies No past medical history on file. No past surgical history on file. No family history on file. Social History Tobacco Use Smoking status: Never Smokeless tobacco: Never Substance Use Topics Alcohol use: Never Objective BP 115/78 (BP Location: Left arm, Patient Position: Sitting, BP Cuff Size: Adult) Pulse 79 Temp 36.6 C (97.9 F) (Temporal) Ht 5' 5 (1.651 m) Wt 106 lb (48.1 kg) SpO2 98% Comment: Ra BMI 17.64 kg/m Physical Exam Constitutional: Appearance: Normal appearance. HENT: Head: Normocephalic and atraumatic. Cardiovascular: Rate and Rhythm: Normal rate and regular rhythm. Pulses: Normal pulses. Heart sounds: Normal heart sounds. Pulmonary: Effort: Pulmonary effort is normal. Breath sounds: Normal breath sounds. Abdominal: General: Bowel sounds are normal. There is no distension. Palpations: Abdomen is soft. Tenderness: There is no abdominal tenderness. Skin: General: Skin is warm. Neurological: General: No focal deficit present. Mental Status: She is alert and oriented to person, place, and time. Psychiatric: Mood and Affect: Mood normal. Behavior: Behavior normal. Data Reviewed and Summarized: Medical decision making including: See Assessment/Plan Goals [facility] Staffed with Dr. Natanael Cortez MD PGY : 3 06/26/2024 documented in this encounter [facility] 06-25-2024 History of Presen t illness Narrative Patient refuses flu vaccine due to: (example reasons in parentheses) [] cost (insurance doesn't cover, less expensive elsewhere) [] risk (I always get sick after flu shots, side effects) [] mistrust (moneymaking conspiracy, dangerous chemicals, not safe, knows someone who got very sick from it) [] susceptibility (I never get the flu) [] inertia (I've never had one, so I don't want one) [x] other MA time with patient 5 minutes TH Images from the original note were not included. [facility] - [address] [facility] [address] Dept: [phone] Dept Loc: [phone] 06/25/2024 Visit type: inpatient follow up Reason for Visit: Hospital Follow-up (Uti, yeast infection, ) ASSESSMENT/PLAN 1. Recurrent UTI (urinary tract infection) complicating , first trimester Assessment & Plan: - Patient is starting to notice burning and pain with urination during midstream which is bothersome since a few days after completing Antibiotic Course - As per HPI, no other systemic signs of infection - Will order repeat UA and Urine Culture for further detail and if triple positive for Leukocytes, Nitrites, and Bacteria will decide on best treatment course Orders: - Urinalysis with reflex microscopic (clean catch) - Urine culture (clean catch) Follow up in 3 months (on 09/25/2024). Subjective Sumit Green is a 18 y.o. female presenting today for a Transitional Care Management Visit related to her recent hospital stay. HPI Sumit Green is a 18 y.o. female with no significant past medical history that presented to [facility] ED on 06/14/2024 with lightheadedness and nausea/vomiting along with dysuria, burning, increased urinary frequency, and itching. She was found to be 6 weeks and UA showed signs of UTI. She was started on IV ceftriaxone for presumable treatment of complicated UTI. She was admitted for further workup due to concerns of pyelonephritis given . Labs were negative for leukocytosis and she was hemodynamically stable. US retroperitoneal was unremarkable. She was then transitioned to Augmentin 875-125 mg BID for 7 more days and discharged home in stable condition. Patient comes in to the [facility] today for regularly scheduled hospital follow up. She has overall been doing well and does not appear to be in any acute distress. However, patient is starting to notice burning and pain with urination during midstream which is bothersome. She denies any nausea, vomiting, fevers/chills, or BL Flank Abdominal Pain. We talked about repeating a UA and Urine Culture to rule out any abnormalities given that she is currently and we need to be extra careful if any infection were to arise. Date of Hospital discharge: 06/16/2024 Date of non face to face post-discharge phone call: 06/18/2024 Call initiated 2 business days of discharge: yes Complexity of Medical Decision making for this visit: Moderate Detailed post-discharge medication reconciliation Current medication and discharge medication lists were reviewed and reconciled during today's visit - see below Instructed patient to take all discharge medications as prescribed except where otherwise noted in assessment & plan. Medications listed as ordered at the time of discharge from hospital: Outpatient Medications Prior to Visit Medication Sig Dispense Refill albuterol 108 (90 Base) MCG/ACT inhaler Inhale 2 puffs every 4 hours as needed for wheezing. 18 g 0 ferrous sulfate 325 (65 Fe) MG tablet Take 1 tablet (325 mg) by mouth daily (with breakfast). 30 tablet 0 27-1 MG tablet Take 1 tablet by mouth daily. 30 tablet 0 No facility-administered medications prior to visit. Reconciled medication list reflecting any changes from today's visit: Current Outpatient Medications: albuterol 108 (90 Base) MCG/ACT inhaler, Inhale 2 puffs every 4 hours as needed for wheezing., Disp: 18 g, Rfl: 0 ferrous sulfate 325 (65 Fe) MG tablet, Take 1 tablet (325 mg) by mouth daily (with breakfast)., Disp: 30 tablet, Rfl: 0 27-1 MG tablet, Take 1 tablet by mouth daily., Disp: 30 tablet, Rfl: 0 Review of Systems Constitutional: Negative for activity change, appetite change, chills, fatigue and fever. HENT: Negative for congestion. Eyes: Negative for visual disturbance. Respiratory: Negative for chest tightness. Cardiovascular: Negative for chest pain and palpitations. Gastrointestinal: Negative for abdominal distention and abdominal pain. Genitourinary: Positive for dysuria. Musculoskeletal: Negative for arthralgias and back pain. Skin: Negative for color change. Neurological: Negative for dizziness and headaches. Psychiatric/Behavioral: Negative for agitation, behavioral problems and confusion. No Known Allergies No past medical history on file. No past surgical history on file. No family history on file. Social History Tobacco Use Smoking status: Never Smokeless tobacco: Never Substance Use Topics Alcohol use: Never Objective BP 115/78 (BP Location: Left arm, Patient Position: Sitting, BP Cuff Size: Adult) Pulse 79 Temp 36.6 C (97.9 F) (Temporal) Ht 5' 5 (1.651 m) Wt 106 lb (48.1 kg) SpO2 98% Comment: Ra BMI 17.64 kg/m Physical Exam Constitutional: Appearance: Normal appearance. HENT: Head: Normocephalic and atraumatic. Cardiovascular: Rate and Rhythm: Normal rate and regular rhythm. Pulses: Normal pulses. Heart sounds: Normal heart sounds. Pulmonary: Effort: Pulmonary effort is normal. Breath sounds: Normal breath sounds. Abdominal: General: Bowel sounds are normal. There is no distension. Palpations: Abdomen is soft. Tenderness: There is no abdominal tenderness. Skin: General: Skin is warm. Neurological: General: No focal deficit present. Mental Status: She is alert and oriented to person, place, and time. Psychiatric: Mood and Affect: Mood normal. Behavior: Behavior normal. Data Reviewed and Summarized: Medical decision making including: See Assessment/Plan Goals None Internal Medicine Center Staffed with Dr. Natanael Cortez MD PGY : 3 06/26/2024 Teaching Physician Note Direct Supervision - Modifier GC I performed a history & physical examination of the patient and also discussed the patient's management with the resident. I was present for the bustamante portions of any procedures performed. I reviewed the resident's note and agree with the documented findings and plan of care with any exceptions or corrections noted below. Please see resident s note for further details. This service has been performed in part by a resident under the direction of a teaching physician (EUGENIO Hunt). Additional comments: Overall feels improved. She has noticed mild burning with urination mainly in evening for last few days so urine will be rechecked. Liza Whitman MD documented in this encounter [facility] 06-18-2024 Note Hospital discharge t o home noted. Please see separate patient outreach encounter. [facility] 06-16-2024 Note Internal Medicine: M ed Team Discharge Summary Sumit Green : 2005 ADMIT DATE: 06/14/2024 DISCHARGE DATE: 06/16/24 PCP: Jeremy Vásquez Visit Status: Admission Code Status: FULL CODE Primary Discharge Diagnosis: Complicated UTI Secondary Discharge Diagnoses: Nicki infection on UA 1st Trimester Subchorionic hemorrhage on US pelvic Hx of recurrent yeast infectio Iron deficiency anemia Reason for Admission & Hospital Course: Sumit Green is a 18 y.o. female with no significant past medical history that presented to [facility] ED on 06/14/2024 with lightheadedness and nausea/vomiting along with dysuria, burning, increased urinary frequency, and itching. She was found to be 6 weeks and UA showed signs of UTI. She was started on IV ceftriaxone for presumable treatment of complicated UTI. She was admitted for further workup due to concerns of pyelonephritis given . Labs were negative for leukocytosis and she was hemodynamically stable. US retroperitoneal was unremarkable. Continue to improve clinically and did not have any systemic infectious sign. She was stable for discharge of 7 day course of Augmentin and close follow up with OB and IMC to establish care. Disposition: Home Activity: No restriction. up with assist Diet: Adult diet Regular Discharge Medications: Medication List START taking these medications amoxicillin-clavulanate 875-125 MG tablet Commonly known as: Augmentin Take 1 tablet by mouth 2 times daily for 7 days. ferrous sulfate 325 (65 Fe) MG tablet Take 1 tablet (325 mg) by mouth daily (with breakfast). Start taking on: June 17, 2024 27-1 MG tablet Take 1 tablet by mouth daily. prochlorperazine 5 MG tablet Commonly known as: Compazine Take 1 tablet (5 mg) by mouth 3 times daily as needed for nausea for up to 7 days. CONTINUE taking these medications albuterol 108 (90 Base) MCG/ACT inhaler Inhale 2 puffs every 4 hours as needed for wheezing. Where to Get Your Medications These medications were sent to [facility] - [place], [place] [address] [place] [id number] amoxicillin-clavulanate 875-125 MG tablet ferrous sulfate 325 (65 Fe) MG tablet 27-1 MG tablet prochlorperazine 5 MG tablet Notable Medication Changes & Reasoning: - Start vitamins - Start iron supplement - Oral antibiotics with Agumentin BID x 7 days - Compazine prn for nausea [facility] [employer] Procedures Performed None Significant Laboratory/Radiographic Data: UA showed leukocytes and moderate bacteria 06/14/2024 US PELVIS TRANSVAGINAL IMPRESSION: Probable intrauterine gestational sac at proximal 6 weeks, 1 day gestational age. No pole is visualized. 1.8 cm subchorionic hemorrhage. Ectopic is not entirely excluded and follow-up beta-hCG and pelvic ultrasound are suggested. 06/14/2024 US RETROPERITONEAL IMPRESSION: Within limits of the examination, unremarkable exam Pending Results at Time of Discharge Urine cultures Follow Up Appointment(s): Future Appointments Date Time Provider Department Center 06/25/2024 2:50 PM Vick Cortez MD [facility] 06/29/2024 12:30 PM [facility] M[facility] 2 [facility] [address] [facility] 06/29/2024 1:30 PM Gloria Ohara MD [facility] W[facility] None Items to Address at Followup Visit: - Ensure finish Augmentin 7 day course - establish care appt with [facility] afterwards - reassess yeast infection and prescribe terazol if needed - reassess UTI symptoms resolution - follow up on iron deficiency anemia Patient seen & examined on day of discharge. Please refer to note dated on the day of discharge (06/16/2024) for associated attestation, exam, and plan. My personal highlights or additions below noted in Green. [facility] 06-16-2024 Hospital course Narrative Internal Medicine: Med Team Discharge Summary Sumit Green : 2005 ADMIT DATE: 06/14/2024 DISCHARGE DATE: 06/16/24 PCP: Jeremy Vásquez Visit Status: Admission Code Status: FULL CODE Primary Discharge Diagnosis: Complicated UTI Secondary Discharge Diagnoses: Nicki infection on UA 1st Trimester Subchorionic hemorrhage on US pelvic Hx of recurrent yeast infectio Iron deficiency anemia Reason for Admission & Hospital Course: Sumit Green is a 18 y.o. female with no significant past medical history that presented to [facility] ED on 06/14/2024 with lightheadedness and nausea/vomiting along with dysuria, burning, increased urinary frequency, and itching. She was found to be 6 weeks and UA showed signs of UTI. She was started on IV ceftriaxone for presumable treatment of complicated UTI. She was admitted for further workup due to concerns of pyelonephritis given . Labs were negative for leukocytosis and she was hemodynamically stable. US retroperitoneal was unremarkable. Continue to improve clinically and did not have any systemic infectious sign. She was stable for discharge of 7 day course of Augmentin and close follow up with OB and IMC to establish care. Disposition: Home Activity: No restriction. up with assist Diet: Adult diet Regular Discharge Medications: Medication List START taking these medications amoxicillin-clavulanate 875-125 MG tablet Commonly known as: Augmentin Take 1 tablet by mouth 2 times daily for 7 days. ferrous sulfate 325 (65 Fe) MG tablet Take 1 tablet (325 mg) by mouth daily (with breakfast). Start taking on: June 17, 2024 27-1 MG tablet Take 1 tablet by mouth daily. prochlorperazine 5 MG tablet Commonly known as: Compazine Take 1 tablet (5 mg) by mouth 3 times daily as needed for nausea for up to 7 days. CONTINUE taking these medications albuterol 108 (90 Base) MCG/ACT inhaler Inhale 2 puffs every 4 hours as needed for wheezing. Where to Get Your Medications These medications were sent to [facility] - [place], [place] - [address] [place] [id number] amoxicillin-clavulanate 875-125 MG tablet ferrous sulfate 325 (65 Fe) MG tablet 27-1 MG tablet prochlorperazine 5 MG tablet Notable Medication Changes & Reasoning: - Start vitamins - Start iron supplement - Oral antibiotics with Agumentin BID x 7 days - Compazine prn for nausea [employer] [employer] Procedures Performed None Significant Laboratory/Radiographic Data: UA showed leukocytes and moderate bacteria 06/14/2024 US PELVIS TRANSVAGINAL IMPRESSION: Probable intrauterine gestational sac at proximal 6 weeks, 1 day gestational age. No pole is visualized. 1.8 cm subchorionic hemorrhage. Ectopic is not entirely excluded and follow-up beta-hCG and pelvic ultrasound are suggested. 06/14/2024 US RETROPERITONEAL IMPRESSION: Within limits of the examination, unremarkable exam Pending Results at Time of Discharge Urine cultures Follow Up Appointment(s): Future Appointments Date Time Provider Department Center 06/25/2024 2:50 PM Vick Cortez MD [facility] 06/29/2024 12:30 PM [facility] 2 [facility] 06/29/2024 1:30 PM Gloria Ohara MD [facility] None Items to Address at Followup Visit: - Ensure finish Augmentin 7 day course - establish care appt with [facility] afterwards - reassess yeast infection and prescribe terazol if needed - reassess UTI symptoms resolution - follow up on iron deficiency anemia Patient seen & examined on day of discharge. Please refer to note dated on the day of discharge (06/16/2024) for associated attestation, exam, and plan. My personal highlights or additions below noted in Green. documented in this encounter [facility] 06-16-2024 Hospital Discharg e instructions Katia Soliman DO - 06/16/2024 12:30 PM EST Fax number of [facility] [phone] documented in this encounter [facility] 06-16-2024 Note Med Team Progress No jose j Sumit Peter : 2005(18 y.o.) Date: June 16, 2024 Med Team: Jasmyn Attending: Dr. Jef Fabian Chief Complaint: UTI, abdominal pain Subjective: - No acute events overnight. IV fell out and pt refused replacement. - Currently, patient states she reports she is feeling okay. Has not had any more vaginal bleeding or abdominal cramping. Has had some lower abdominal pain with bowel movements. Denies any flank pain, pain with urination, nausea, or vomiting. Reported some lightheadedness upon waking, but had not eaten yet and said she believes it could be from her anemia (has been lightheaded before too). Encouraged her to increase fluid and fiber intake for the trouble with bowel movements & plan to start iron on alternating days for anemia. 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 Pt also asked about letter for work excuse and fax # for office, both of which we discussed would be included in her paperwork on discharge. PRN meds used in last 24hrs: tylenol 650 mg x2 Review of Systems Constitutional: Positive for appetite change (1st trimester). Negative for chills and fatigue. Respiratory: Negative for shortness of breath. Cardiovascular: Negative for chest pain. Gastrointestinal: Positive for abdominal pain (lower ab pain with bowel movements). Negative for nausea and vomiting. Genitourinary: Negative for dysuria and urgency. Neurological: Positive for light-headedness. Negative for headaches. Scheduled Meds: cefTRIAXone, 1 g, IntraVENous, q24h ferrous sulfate, 325 mg, Oral, Daily with breakfast , 1 tablet, Oral, Daily Continuous Infusions: Objective: BP 100/63 (BP Location: Left arm, Patient Position: Lying) Pulse 77 Temp 37 ?C (98.6 ?F) (Temporal) Resp 16 Ht 5' 5 (1.651 m) Wt 106 lb (48.1 kg) SpO2 100% BMI 17.64 kg/m? Physical Exam Constitutional: General: She is not in acute distress. Cardiovascular: Rate and Rhythm: Normal rate and regular rhythm. Pulses: Normal pulses. Pulmonary: Effort: Pulmonary effort is normal. No respiratory distress. Breath sounds: Normal breath sounds. Abdominal: Tenderness: There is no abdominal tenderness. There is no right CVA tenderness or left CVA tenderness. Musculoskeletal: Right lower leg: No edema. Left lower leg: No edema. Skin: General: Skin is warm and dry. Neurological: General: No focal deficit present. Mental Status: She is alert. Mental status is at baseline. Psychiatric: Mood and Affect: Mood normal. Select Recent Labs BMP: Recent Labs 06/14/24 0136 06/15/2453106/16/246 NA 135* 136 135* K 4.0 3.7 4.0 CL 106 110* 110* CO2 22 19* 18* BUN 10 9 10 CREATININE 0.73 0.72 0.63 CALCIUM 8.8 8.6 8.8 LFTs: Recent Labs 06/14/2413506/15/2453106/16/246 AST -- ALT -- PROT -- 6.4 6.5 ALBUMIN -- 3.6 3.8 BILITOT -- 0.3 0.4 BILIRUBINU Negative -- -- ALKPHOS -- 51 53 Glucose: Recent Labs 06/14/2413506/15/2453106/16/246 GLUCOSE 110* 130* 86 Procal: Recent Labs 06/14/24135 PROCAL 0.03 CBC: Recent Labs 06/14/2413506/15/2453106/16/246 WBC 5.6 5.1 5.9 HGB 10.5* 10.6* 11.0* HCT 30.8* 32.2* 31.9* PLT 290 295 299 MCV 77.6 78.0 76.0* RDW 14.1 14.0 14.4 ABGs: No results for input(s): PHART, IFM1YKF, PO2ART, UWB6QCI, SO2ART, K7LMYYXH in the last 72 hours. Lactic Acid: No results for input(s): LACTATE in the last 72 hours. INR: No results for input(s): INR in the last 72 hours. Cardiac Injury Profile: No results for input(s): CKTOTAL, CKMB, TROPONINI, TROPHSBASE, TROPHS2, BNP in the last 72 hours. Labs in Last 3 months: No results found for: TSH, VITD25, PSA, INR, GLUF Imagin06/14/2024 US PELVIS TRANSVAGINAL IMPRESSION: Probable intrauterine gestational sac at proximal 6 weeks, 1 day gestational age. No pole is visualized. 1.8 cm subchorionic hemorrhage. Ectopic is not entirely excluded and follow-up beta-hCG and pelvic ultrasound are suggested. 06/14/2024 US RETROPERITONEAL FINDINGS: RIGHT KIDNEY: Size: 11.0 x 5.0 x 3.8 cm Cortex: Normal cortical thickness and echogenicity. Hydronephrosis: None Calculi or Cysts: None LEFT KIDNEY: Size: 9.2 x 4.5 x 4.8 cm Cortex: Normal cortical thickness and echogenicity. Hydronephrosis: None Calculi or Cysts: None BLADDER: The bladder is nondistended and not well evaluated.. Other: No mass or fluid collection is seen adjacent to the kidneys. IMPRESSION: Within limits of the examination, unremarkable exam Assessment and Plan: Complicated UTI during 1st trimester (2nd episode in 2 months) vs Pyelonephritis Nicki infection on UA - Previously treated outpatient with penicillin - Procalcitonin 0.03, (more content not included)... [facility] 06-16-2024 History of Presen t illness Narrative Med Team Progress Note Sumit Green : 2005(18 y.o.) Date: June 16, 2024 Med Team: A Attending: Dr. Jef Fabian Chief Complaint: UTI, abdominal pain Subjective: - No acute events overnight. IV fell out and pt refused replacement. - Currently, patient states she reports she is feeling okay. Has not had any more vaginal bleeding or abdominal cramping. Has had some lower abdominal pain with bowel movements. Denies any flank pain, pain with urination, nausea, or vomiting. Reported some lightheadedness upon waking, but had not eaten yet and said she believes it could be from her anemia (has been lightheaded before too). Encouraged her to increase fluid and fiber intake for the trouble with bowel movements & plan to start iron on alternating days for anemia. 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 Pt also asked about letter for work excuse and fax # for office, both of which we discussed would be included in her paperwork on discharge. PRN meds used in last 24hrs: tylenol 650 mg x2 Review of Systems Constitutional: Positive for appetite change (1st trimester). Negative for chills and fatigue. Respiratory: Negative for shortness of breath. Cardiovascular: Negative for chest pain. Gastrointestinal: Positive for abdominal pain (lower ab pain with bowel movements). Negative for nausea and vomiting. Genitourinary: Negative for dysuria and urgency. Neurological: Positive for light-headedness. Negative for headaches. Scheduled Meds: cefTRIAXone, 1 g, IntraVENous, q24h ferrous sulfate, 325 mg, Oral, Daily with breakfast , 1 tablet, Oral, Daily Continuous Infusions: Objective: BP 100/63 (BP Location: Left arm, Patient Position: Lying) Pulse 77 Temp 37 C (98.6 F) (Temporal) Resp 16 Ht 5' 5 (1.651 m) Wt 106 lb (48.1 kg) SpO2 100% BMI 17.64 kg/m Physical Exam Constitutional: General: She is not in acute distress. Cardiovascular: Rate and Rhythm: Normal rate and regular rhythm. Pulses: Normal pulses. Pulmonary: Effort: Pulmonary effort is normal. No respiratory distress. Breath sounds: Normal breath sounds. Abdominal: Tenderness: There is no abdominal tenderness. There is no right CVA tenderness or left CVA tenderness. Musculoskeletal: Right lower leg: No edema. Left lower leg: No edema. Skin: General: Skin is warm and dry. Neurological: General: No focal deficit present. Mental Status: She is alert. Mental status is at baseline. Psychiatric: Mood and Affect: Mood normal. Select Recent Labs BMP: Recent Labs 06/14/2413506/15/2453106/16/246 NA 135* 136 135* K 4.0 3.7 4.0 CL 106 110* 110* CO2 22 19* 18* BUN 10 9 10 CREATININE 0.73 0.72 0.63 CALCIUM 8.8 8.6 8.8 LFTs: Recent Labs 06/14/2413506/15/2453106/16/246 AST -- 21 17 ALT -- PROT -- 6.4 6.5 ALBUMIN -- 3.6 3.8 BILITOT -- 0.3 0.4 BILIRUBINU Negative -- -- ALKPHOS -- 51 53 Glucose: Recent Labs 06/14/2413506/15/2453106/16/246 GLUCOSE 110* 130* 86 Procal: Recent Labs 06/14/24135 PROCAL 0.03 CBC: Recent Labs 06/14/2413506/15/2453106/16/246 WBC 5.6 5.1 5.9 HGB 10.5* 10.6* 11.0* HCT 30.8* 32.2* 31.9* PLT 290 295 299 MCV 77.6 78.0 76.0* RDW 14.1 14.0 14.4 ABGs: No results for input(s): PHART, VIY8TLF, PO2ART, LMY0SHL, SO2ART, L6QKYTUK in the last 72 hours. Lactic Acid: No results for input(s): LACTATE in the last 72 hours. INR: No results for input(s): INR in the last 72 hours. Cardiac Injury Profile: No results for input(s): CKTOTAL, CKMB, TROPONINI, TROPHSBASE, TROPHS2, BNP in the last 72 hours. Labs in Last 3 months: No results found for: TSH, VITD25, PSA, INR, GLUF Imagin06/14/2024 US PELVIS TRANSVAGINAL IMPRESSION: Probable intrauterine gestational sac at proximal 6 weeks, 1 day gestational age. No pole is visualized. 1.8 cm subchorionic hemorrhage. Ectopic is not entirely excluded and follow-up beta-hCG and pelvic ultrasound are suggested. 06/14/2024 US RETROPERITONEAL FINDINGS: RIGHT KIDNEY: Size: 11.0 x 5.0 x 3.8 cm Cortex: Normal cortical thickness and echogenicity. Hydronephrosis: None Calculi or Cysts: None LEFT KIDNEY: Size: 9.2 x 4.5 x 4.8 cm Cortex: Normal cortical thickness and echogenicity. Hydronephrosis: None Calculi or Cysts: None BLADDER: The bladder is nondistended and not well evaluated.. Other: No mass or fluid collection is seen adjacent to the kidneys. IMPRESSION: Within limits of the examination, unremarkable exam Assessment and Plan: Complicated UTI during 1st trimester (2nd episode in 2 months) vs Pyelonephritis Nicki infection on UA - Previously treated outpatient with penicillin - Procalcitonin 0.03, no leukocytosis - UA showed 25 leukocytes and moderate bacteria - Negative for HIV, Hep C - Urine negative for gonorrhea/chlamydia - US retroperitoneum was unremarkable but unable to rule out pyelonephritis because cannot obtain CT given - Though patient is at elevated risk of pyelonephritis due to , she does not have any leukocytosis/fever/tachycardia, does have mild flank tenderness now Plan: - Ucx: inadequate leukocytes - Discussed with Dr. Ridley (abx stewardship): will switch to oral abx for 7 days (Augmentin) and discharge home (received 3 d IV ceftriaxone during admission) - Daily CBC - Discussed with OB, will hold off nicki treatment at this time until antibiotic course completes. Patient stated that genital sores resolved with OTC Vagisil cream 1st Trimester Subchorionic hemorrhage on US pelvic - OBGYN evaluated - Per OB team, pelvic US is unconcerning and subchorionic hemorrhage unlikely to contribute to back/suprapubic pain --> will follow up outpt for viability (had 1 ep of 1 drop of blood during admission) - Started vitamin and folic acid daily Chronic anemia - Will start iron supplementation every other day to not worsen constipation Nausea - Will start on compazine, as safer than zofran at <10 wk age Resolved Problems: N/A Chronic Problems and Follow Up Items: N/A Dispo and Barriers to Discharge: - Ok for discharge today - Goals of Care: FULL CODE - DVT Prophylaxis: SCD's or Sequential Compression Device - GI Prophylaxis: Not Indicated - Diet: General I saw and evaluated the patient. I agree with the findings and plan of care as documented in the resident's note, except as noted in Green text. Patient seen and examined personally at bedside (Date of Service: 06/16/24) 7AM-5PM: contact resident on [facility] Med A (find by hovering over attending's name on left side of patient's chart) 5PM-7AM: contact AI3 res Nutrition rescreen completed. Patient referred to the Dietitian. BMI 17.64. Med Team Progress Note Sumit Green : 2005(18 y.o.) Date: June 15, 2024 Med Team: A Attending: Dr. Jef Fabian Chief Complaint: UTI Subjective: - No acute events overnight. - Currently, patient states she feels better than yesterday. She states her pain is a 2/10 and she mostly feels it around her left lower quadrant and suprapubic region. She endorses chills and fatigue but denies new SOB or GUTIERREZ. Denies N/V today. She notes vaginal itching and burning but states symptoms improved with tylenol. Patient also has increased urinary urgency. During team rounds, she endorsed flank tenderness bilaterally, which was not present yesterday. PRN meds used in last 24hrs: Zofran 4 mg x1, tylenol Review of Systems Constitutional: Positive for appetite change (1st trimester), chills and fatigue. Respiratory: Positive for shortness of breath (recovering from recent bronchitis). Cardiovascular: Negative for chest pain. Gastrointestinal: Positive for abdominal pain (worse near LLQ). Negative for nausea and vomiting. Genitourinary: Positive for dysuria and urgency. Suprapubic pain Neurological: Negative for light-headedness and headaches. Scheduled Meds: cefTRIAXone, 1 g, IntraVENous, q24h , 1 tablet, Oral, Daily Continuous Infusions: Objective: BP 106/62 (BP Location: Left arm, Patient Position: Sitting) Pulse 67 Temp 36.9 C (98.4 F) (Temporal) Resp 16 Ht 5' 5 (1.651 m) Wt 106 lb (48.1 kg) SpO2 100% BMI 17.64 kg/m Physical Exam Constitutional: General: She is not in acute distress. Cardiovascular: Rate and Rhythm: Normal rate and regular rhythm. Pulses: Normal pulses. Pulmonary: Effort: Pulmonary effort is normal. No respiratory distress. Breath sounds: Normal breath sounds. Abdominal: Tenderness: There is abdominal tenderness. There is right CVA tenderness (mild) and left CVA tenderness (mild; L>R). Genitourinary: Comments: Suprapubic tenderness Musculoskeletal: Right lower leg: No edema. Left lower leg: No edema. Neurological: General: No focal deficit present. Mental Status: She is alert. Mental status is at baseline. Psychiatric: Mood and Affect: Mood normal. Select Recent Labs BMP: Recent Labs 06/14/24 0136 06/15/24 0532 NA 135* 136 K 4.0 3.7 CL 106 110* CO2 22 19* BUN 10 9 CREATININE 0.73 0.72 CALCIUM 8.8 8.6 LFTs: Recent Labs 06/14/24 0136 06/15/24 0532 AST -- 21 ALT -- 25 PROT -- 6.4 ALBUMIN -- 3.6 BILITOT -- 0.3 BILIRUBINU Negative -- ALKPHOS -- 51 Glucose: Recent Labs 06/14/24 0136 06/15/24 0532 GLUCOSE 110* 130* Procal: Recent Labs 06/14/24135 PROCAL 0.03 CBC: Recent Labs 06/14/2413506/15/24 0532 WBC 5.6 5.1 HGB 10.5* 10.6* HCT 30.8* 32.2* PLT 290 295 MCV 77.6 78.0 RDW 14.1 14.0 ABGs: No results for input(s): PHART, BYA7LFZ, PO2ART, DHW3QFK, SO2ART, N1PMLYKG in the last 72 hours. Lactic Acid: No results for input(s): LACTATE in the last 72 hours. INR: No results for input(s): INR in the last 72 hours. Cardiac Injury Profile: No results for input(s): CKTOTAL, CKMB, TROPONINI, TROPHSBASE, TROPHS2, BNP in the last 72 hours. Labs in Last 3 months: No results found for: TSH, VITD25, PSA, INR, GLUF Imagin06/14/2024 US PELVIS TRANSVAGINAL IMPRESSION: Probable intrauterine gestational sac at proximal 6 weeks, 1 day gestational age. No pole is visualized. 1.8 cm subchorionic hemorrhage. Ectopic is not entirely excluded and follow-up beta-hCG and pelvic ultrasound are suggested. 06/14/2024 US RETROPERITONEAL FINDINGS: RIGHT KIDNEY: Size: 11.0 x 5.0 x 3.8 cm Cortex: Normal cortical thickness and echogenicity. Hydronephrosis: None Calculi or Cysts: None LEFT KIDNEY: Size: 9.2 x 4.5 x 4.8 cm Cortex: Normal cortical thickness and echogenicity. Hydronephrosis: None Calculi or Cysts: None BLADDER: The bladder is nondistended and not well evaluated.. Other: No mass or fluid collection is seen adjacent to the kidneys. IMPRESSION: Within limits of the examination, unremarkable exam Assessment and Plan: Complicated UTI during 1st trimester (2nd episode in 2 months) vs Pyelonephritis Nicki infection on UA - Previously treated outpatient with penicillin - Procalcitonin 0.03, no leukocytosis - UA showed 25 leukocytes and moderate bacteria - Negative for HIV, Hep C - Urine negative for gonorrhea/chlamydia - US retroperitoneum was unremarkable but unable to rule out pyelonephritis because cannot obtain CT given - Though patient is at elevated risk of pyelonephritis due to , she does not have any leukocytosis/fever/tachycardia, does have mild flank tenderness now Plan: - Ucx: inadequate leukocytes - Discussed with Dr. Ridley (abx stewardship) and will continue IV ceftriaxone through tomorrow (total 3 days IV abx). If pt continues to show clinical improvement, will switch to oral abx for 7 days (cefdinir) and discharge home - Daily CBC - Discussed with OB, will hold off nicki treatment at this time until antibiotic course completes. Patient stated that genital sores resolved with OTC Vagisil cream 1st Trimester Subchorionic hemorrhage on US pelvic - OBGYN evaluated - Per OB team, pelvic US is unconcerning and subchorionic hemorrhage unlikely to contribute to back/suprapubic pain --> will follow up outpt for viability - Started vitamin and folic acid daily Resolved Problems: N/A Chronic Problems and Follow Up Items: N/A Dispo and Barriers to Discharge: - IV antibiotics - Goals of Care: FULL CODE - DVT Prophylaxis: SCD's or Sequential Compression Device - GI Prophylaxis: Not Indicated - Diet: General I saw and evaluated the patient. I agree with the findings and plan of care as documented in the resident's note, except as noted in Green text. Patient seen and examined personally during bedside teaching rounds (Date of Service: 06/15/24) 7AM-5PM: contact resident on [facility] Med A (find by hovering over attending's name on left side of patient's chart) 5PM-7AM: contact SANDRA res documented in this encounter [facility] 06-16-2024 Nurse Note Patients IV removed. This RN asked patient if another IV could be replaced. Patient refused. All risks dicussed with patient. [facility] 06-16-2024 Nurse Note Patients IV removed. This RN asked patient if another IV could be replaced. Patient refused. All risks dicussed with patient. documented in this encounter [facility] 06-15-2024 Plan of care note Problem: Pain - Adult Goal: Verbalizes/displays adequate comfort level or baseline comfort level Outcome: Progressing Problem: Safety - Adult Goal: Free from fall injury Outcome: Progressing Problem: Discharge Planning Goal: Discharge to home or other facility with appropriate resources Outcome: Progressing Problem: Chronic Conditions and Co-morbidities Goal: Patient's chronic conditions and co-morbidity symptoms are monitored and maintained or improved Outcome: Progressing [facility] 06-15-2024 Miscellaneous Notes Problem: Pain - Adult Goal: Verbalizes/displays adequate comfort level or baseline comfort level Outcome: Progressing Problem: Safety - Adult Goal: Free from fall injury Outcome: Progressing Problem: Discharge Planning Goal: Discharge to home or other facility with appropriate resources Outcome: Progressing Problem: Chronic Conditions and Co-morbidities Goal: Patient's chronic conditions and co-morbidity symptoms are monitored and maintained or improved Outcome: Progressing Pt admitted for tx/evaluation of recurrent UTI in . OB note- 6 weeks 1 day. Pyelonephritis- urine culture pending. Vaginitis panel- nicki. IV rocephin continued. Anticipate discharge home with no needs. Problem: Pain - Adult Goal: Verbalizes/displays adequate comfort level or baseline comfort level Outcome: Progressing Problem: Safety - Adult Goal: Free from fall injury Outcome: Progressing Problem: Discharge Planning Goal: Discharge to home or other facility with appropriate resources Outcome: Progressing Problem: Chronic Conditions and Co-morbidities Goal: Patient's chronic conditions and co-morbidity symptoms are monitored and maintained or improved Outcome: Progressing documented in this encounter [facility] 06-15-2024 Note Formatting of this n ote might be different from the original. Pt admitted for tx/evaluation of recurrent UTI in . OB note- 6 weeks 1 day. Pyelonephritis- urine culture pending. Vaginitis panel- nicki. IV rocephin continued. Anticipate discharge home with no needs. [facility] 06-15-2024 Note Formatting of this n ote might be different from the original. Pt admitted for tx/evaluation of recurrent UTI in . OB note- 6 weeks 1 day. Pyelonephritis- urine culture pending. Vaginitis panel- nicki. IV rocephin continued. Anticipate discharge home with no needs. [facility] 06-15-2024 Note Pt admitted for tx/e valuation of recurrent UTI in . OB note- 6 weeks 1 day. Pyelonephritis- urine culture pending. Vaginitis panel- nicki. IV rocephin continued. Anticipate discharge home with no needs. [facility] 06-15-2024 Note Med Team Progress No te Sumit Green : 2005(18 y.o.) Date: June 15, 2024 Med Team: A Attending: Dr. Jef Fabian Chief Complaint: UTI Subjective: - No acute events overnight. - Currently, patient states she feels better than yesterday. She states her pain is a 2/10 and she mostly feels it around her left lower quadrant and suprapubic region. She endorses chills and fatigue but denies new SOB or GUTIERREZ. Denies N/V today. She notes vaginal itching and burning but states symptoms improved with tylenol. Patient also has increased urinary urgency. During team rounds, she endorsed flank tenderness bilaterally, which was not present yesterday. PRN meds used in last 24hrs: Zofran 4 mg x1, tylenol Review of Systems Constitutional: Positive for appetite change (1st trimester), chills and fatigue. Respiratory: Positive for shortness of breath (recovering from recent bronchitis). Cardiovascular: Negative for chest pain. Gastrointestinal: Positive for abdominal pain (worse near LLQ). Negative for nausea and vomiting. Genitourinary: Positive for dysuria and urgency. Suprapubic pain Neurological: Negative for light-headedness and headaches. Scheduled Meds: cefTRIAXone, 1 g, IntraVENous, q24h , 1 tablet, Oral, Daily Continuous Infusions: Objective: BP 106/62 (BP Location: Left arm, Patient Position: Sitting) Pulse 67 Temp 36.9 ?C (98.4 ?F) (Temporal) Resp 16 Ht 5' 5 (1.651 m) Wt 106 lb (48.1 kg) SpO2 100% BMI 17.64 kg/m? Physical Exam Constitutional: General: She is not in acute distress. Cardiovascular: Rate and Rhythm: Normal rate and regular rhythm. Pulses: Normal pulses. Pulmonary: Effort: Pulmonary effort is normal. No respiratory distress. Breath sounds: Normal breath sounds. Abdominal: Tenderness: There is abdominal tenderness. There is right CVA tenderness (mild) and left CVA tenderness (mild; L>R). Genitourinary: Comments: Suprapubic tenderness Musculoskeletal: Right lower leg: No edema. Left lower leg: No edema. Neurological: General: No focal deficit present. Mental Status: She is alert. Mental status is at baseline. Psychiatric: Mood and Affect: Mood normal. Select Recent Labs BMP: Recent Labs 06/14/246 06/15/24 0532 NA 135* 136 K 4.0 3.7 CL 106 110* CO2 22 19* BUN 10 9 CREATININE 0.73 0.72 CALCIUM 8.8 8.6 LFTs: Recent Labs 06/14/2413506/15/24 0532 AST -- 21 ALT -- 25 PROT -- 6.4 ALBUMIN -- 3.6 BILITOT -- 0.3 BILIRUBINU Negative -- ALKPHOS -- 51 Glucose: Recent Labs 06/14/2413506/15/24 0532 GLUCOSE 110* 130* Procal: Recent Labs 06/14/24135 PROCAL 0.03 CBC: Recent Labs 06/14/2413506/15/24 0532 WBC 5.6 5.1 HGB 10.5* 10.6* HCT 30.8* 32.2* PLT 290 295 MCV 77.6 78.0 RDW 14.1 14.0 ABGs: No results for input(s): PHART, NKU1URL, PO2ART, XFB4EJA, SO2ART, I9EHTCKL in the last 72 hours. Lactic Acid: No results for input(s): LACTATE in the last 72 hours. INR: No results for input(s): INR in the last 72 hours. Cardiac Injury Profile: No results for input(s): CKTOTAL, CKMB, TROPONINI, TROPHSBASE, TROPHS2, BNP in the last 72 hours. Labs in Last 3 months: No results found for: TSH, VITD25, PSA, INR, GLUF Imagin06/14/2024 US PELVIS TRANSVAGINAL IMPRESSION: Probable intrauterine gestational sac at proximal 6 weeks, 1 day gestational age. No pole is visualized. 1.8 cm subchorionic hemorrhage. Ectopic is not entirely excluded and follow-up beta-hCG and pelvic ultrasound are suggested. 06/14/2024 US RETROPERITONEAL FINDINGS: RIGHT KIDNEY: Size: 11.0 x 5.0 x 3.8 cm Cortex: Normal cortical thickness and echogenicity. Hydronephrosis: None Calculi or Cysts: None LEFT KIDNEY: Size: 9.2 x 4.5 x 4.8 cm Cortex: Normal cortical thickness and echogenicity. Hydronephrosis: None Calculi or Cysts: None BLADDER: The bladder is nondistended and not well evaluated.. Other: No mass or fluid collection is seen adjacent to the kidneys. IMPRESSION: Within limits of the examination, unremarkable exam Assessment and Plan: Complicated UTI during 1st trimester (2nd episode in 2 months) vs Pyelonephritis Nicki infection on UA - Previously treated outpatient with penicillin - Procalcitonin 0.03, no leukocytosis - UA showed 25 leukocytes and moderate bacteria - Negative for HIV, Hep C - Urine negative for gonorrhea/chlamydia - US retroperitoneum was unremarkable but unable to rule out pyelonephritis because cannot obtain CT given - Though patient is at elevated risk of pyelonephritis due to , she does not have any leukocytosis/fever/tachycardia, does have mild flank tenderness now Plan: - Ucx: inadequate leukocytes - Discussed with Dr. Ridley (abx stewardship) and will continue IV ceftriaxone through tomorrow (total 3 days IV (more content not included)... [facility] 06-14-2024 Plan of care note Problem: Pain - Adult Goal: Verbalizes/displays adequate comfort level or baseline comfort level Outcome: Progressing Problem: Safety - Adult Goal: Free from fall injury Outcome: Progressing Problem: Discharge Planning Goal: Discharge to home or other facility with appropriate resources Outcome: Progressing Problem: Chronic Conditions and Co-morbidities Goal: Patient's chronic conditions and co-morbidity symptoms are monitored and maintained or improved Outcome: Progressing [facility] 06-14-2024 History and physical note Internal Medicine: Med Team Initial History and Physical Sumit Green : 2005(18 y.o.) Date: June 14, 2024 TEAM: A Attending: Dr. Fabian Subjective: Chief Complaint: lightheaded/UTI Dizziness Associated symptoms include nausea. Pertinent negatives include no chest pain, chills, fatigue, fever, headaches, rash, vomiting or weakness. Vaginal Itching Associated symptoms include back pain (intermittent on left side), dysuria, nausea and urgency. Pertinent negatives include no chills, diarrhea, fever, flank pain, headaches, hematuria, rash or vomiting. Sumit Green is a 18 y.o. female with no significant Pmhx that presented to [facility] on 06/14/2024 from home after feeling lightheaded and nauseaous at work yesterday. During this visit, she was found to be 6 week and evidence of urinary tract infection on UA. She was given one dose of ceftriaxone and was evaluated by OB and underwent US pelvic ultrasound that showed 1.8 cm subchorionic hemorrhage. Denied any systemic symptoms of fever, chills, SOB, abdominal pain. Stated that she does have some nausea but no vomit and some suprapubic and back pain on the left side. However pain completely resolved at the time of my encounter. Patient stated that most of her symptoms are dysuria, burning, increase urine frequency. Stated that she also had previous episode of UTI last month that was treated with penicillin outpatient. In addition, also had hx of kidney stones that naturally passed and hx of yeast infection that resolved with Vagisil OTC cream. Patient denied smoking, etoh use, or drug use. Endorsed sexually active with her fiance and occasionally used protection. Patient was hemodynamically stable. Labs showed no leukocytosis. UA showed 25 leukocytes and moderate bacteria. Review of Systems Constitutional: Negative for activity change, appetite change, chills, fatigue and fever. HENT: Negative for nosebleeds. Respiratory: Negative for shortness of breath. Cardiovascular: Negative for chest pain and leg swelling. Gastrointestinal: Positive for nausea. Negative for blood in stool, diarrhea and vomiting. Genitourinary: Positive for dysuria and urgency. Negative for flank pain, genital sores (had this a week ago due to yeast infection but now resolved) and hematuria. Musculoskeletal: Positive for back pain (intermittent on left side). Skin: Negative for rash. Neurological: Positive for dizziness and light-headedness. Negative for weakness and headaches. Hematological: Does not bruise/bleed easily. History reviewed. No pertinent past medical history. History reviewed. No pertinent surgical history. No family history on file. Social History Tobacco Use Smoking Status Never Smokeless Tobacco Never Social History Substance and Sexual Activity Alcohol Use Never Social History Substance and Sexual Activity Drug Use Never No Known Allergies Prior to Admission medications Medication Sig Start Date End Date Taking? Authorizing Provider albuterol 108 (90 Base) MCG/ACT inhaler Inhale 2 puffs every 4 hours as needed for wheezing. 05/27/24 06/26/24 Mikal Woodson MD Objective: Vitals: 06/14/24 0406 06/14/24 0505 06/14/24 0707 06/14/24 1110 BP: 116/72 105/68 105/74 108/77 BP Location: Right arm Patient Position: Lying Sitting Pulse: 82 90 77 85 Resp: 16 17 16 16 Temp: 36.7 C (98.1 F) 36.7 C (98.1 F) TempSrc: Temporal Oral SpO2: 99% 98% 99% 100% Weight: Height: Physical Exam Constitutional: General: She is not in acute distress. Appearance: Normal appearance. She is not ill-appearing or toxic-appearing. HENT: Head: Normocephalic and atraumatic. Eyes: General: No scleral icterus. Cardiovascular: Rate and Rhythm: Normal rate and regular rhythm. Pulses: Normal pulses. Heart sounds: Normal heart sounds. No murmur heard. Pulmonary: Effort: Pulmonary effort is normal. No respiratory distress. Breath sounds: Normal breath sounds. No wheezing or rales. Abdominal: General: Bowel sounds are normal. There is no distension. Palpations: Abdomen is soft. There is no mass. Tenderness: There is no abdominal tenderness. There is no guarding. Musculoskeletal: General: Normal range of motion. Right lower leg: No edema. Left lower leg: No edema. Skin: General: Skin is warm and dry. Findings: No rash. Neurological: Mental Status: She is alert and oriented to person, place, and time. Psychiatric: Mood and Affect: Mood normal. Behavior: Behavior normal. Select Recent Labs BMP: Recent Labs 06/14/24135 NA 135* K 4.0 CL 106 CO2 22 BUN 10 CREATININE 0.73 CALCIUM 8.8 LFTs: Recent Labs 06/14/24135 BILIRUBINU Negative Glucose: Recent Labs 06/14/24135 GLUCOSE 110* Procal: No results for input(s): PROCAL in the last 72 hours. CBC: Recent Labs 06/14/24 0136 WBC 5.6 HGB 10.5* HCT 30.8* PLT 290 MCV 77.6 RDW 14.1 ABGs: No results for input(s): PHART, RTX7XCK, PO2ART, YOD6DGL, SO2ART, M1DOUGHB in the last 72 hours. Lactic Acid: No results for input(s): LACTATE in the last 72 hours. INR: No results for input(s): INR in the last 72 hours. Cardiac Injury Profile: No results for input(s): CKTOTAL, CKMB, TROPONINI, TROPHSBASE, TROPHS2, BNP in the last 72 hours. Labs in Last 3 months: No results found for: TSH, VITD25, PSA, INR, GLUF Assessment and Plan: Principal Problem: Recurrent UTI (urinary tract infection) complicating , first trimester Complicated UTI during first trimester (2nd episode in 2 months) Nicki infection on UA - Previously treated outpatient with penicillin - Though patient is at elevated risk of pyelonephritis due to , she does not have any leukocytosis and systemic symptoms. - UA showed leukocytes and bacteria --> Ucx pending, - Given one dose of Ceftriaxone IV in the ED, will continue daily ceftriaxone IV 1g for complicated UTI and likely transition to oral antibiotics depending on Ucx microbiology result. - Checked and trend procalcitonin - Will order US retroperitoneum to check for pyelonephritis though she does not have symptoms suggested it and US may not be the best modality to detect but CT is unfavorable due to exposure to radiation. - Daily CBC - Checked STD labs of HIV, Gonorrhea/chlamydia, Hep C - Discussed with OB, will hold off nicki treatment at this time until antibiotic course completes. Patient stated that genital sores resolved with OTC Vagisil cream 1st Trimester Subchorionic hemorrhage on US pelvic - OBGYN evaluated and followed - Per OB team, pelvic US is unconcerning and subchorionic hemorrhage unlikely to contribute to back/suprapubic pain - Started vitamin and folic acid daily. - Goals of Care: FULL CODE - DVT Prophylaxis: SCD's or Sequential Compression Device - GI Prophylaxis: Not Indicated - Diet: General - BMI Classification: Body mass index is 17.64 kg/m . Normal (BMI 18.5-24.9) - Disposition: Admit to F. - Given the signs and symptoms associated with her primary diagnosis in the setting of her comorbid conditions, she is expected to require >48 hrs of hospital care (i.e. inpatient level care). I saw and evaluated the patient. I agree with the findings and plan of care as documented in the resident's note, except as noted in Green text. Patient seen and examined personally during bedside teaching rounds (Date of Service: 06/14/24) [place] Changes to Care Plan: -seems more likely complicated UTI rather than pyelonephritis. -no systemic symptoms (no leukocytosis, fever, tachycardia) -no flank pain. -will likely wait for sensitivities and discharge tomorrow on oral antibiotics. 7AM-5PM: contact resident on [facility] Med A (find by hovering over attending's name on left side of patient's chart) 5PM-7AM: contact AI3 res [facility] [employer] 06-14-2024 Note Internal Medicine: M ed Team Initial History and Physical Sumit Green : 2005(18 y.o.) Date: June 14, 2024 TEAM: A Attending: Dr. Fabian Subjective: Chief Complaint: lightheaded/UTI Dizziness Associated symptoms include nausea. Pertinent negatives include no chest pain, chills, fatigue, fever, headaches, rash, vomiting or weakness. Vaginal Itching Associated symptoms include back pain (intermittent on left side), dysuria, nausea and urgency. Pertinent negatives include no chills, diarrhea, fever, flank pain, headaches, hematuria, rash or vomiting. Sumit Green is a 18 y.o. female with no significant Pmhx that presented to [facility] on 06/14/2024 from home after feeling lightheaded and nauseaous at work yesterday. During this visit, she was found to be 6 week and evidence of urinary tract infection on UA. She was given one dose of ceftriaxone and was evaluated by OB and underwent US pelvic ultrasound that showed 1.8 cm subchorionic hemorrhage. Denied any systemic symptoms of fever, chills, SOB, abdominal pain. Stated that she does have some nausea but no vomit and some suprapubic and back pain on the left side. However pain completely resolved at the time of my encounter. Patient stated that most of her symptoms are dysuria, burning, increase urine frequency. Stated that she also had previous episode of UTI last month that was treated with penicillin outpatient. In addition, also had hx of kidney stones that naturally passed and hx of yeast infection that resolved with Vagisil OTC cream. Patient denied smoking, etoh use, or drug use. Endorsed sexually active with her fiance and occasionally used protection. Patient was hemodynamically stable. Labs showed no leukocytosis. UA showed 25 leukocytes and moderate bacteria. Review of Systems Constitutional: Negative for activity change, appetite change, chills, fatigue and fever. HENT: Negative for nosebleeds. Respiratory: Negative for shortness of breath. Cardiovascular: Negative for chest pain and leg swelling. Gastrointestinal: Positive for nausea. Negative for blood in stool, diarrhea and vomiting. Genitourinary: Positive for dysuria and urgency. Negative for flank pain, genital sores (had this a week ago due to yeast infection but now resolved) and hematuria. Musculoskeletal: Positive for back pain (intermittent on left side). Skin: Negative for rash. Neurological: Positive for dizziness and light-headedness. Negative for weakness and headaches. Hematological: Does not bruise/bleed easily. History reviewed. No pertinent past medical history. History reviewed. No pertinent surgical history. No family history on file. Social History Tobacco Use Smoking Status Never Smokeless Tobacco Never Social History Substance and Sexual Activity Alcohol Use Never Social History Substance and Sexual Activity Drug Use Never No Known Allergies Prior to Admission medications Medication Sig Start Date End Date Taking? Authorizing Provider albuterol 108 (90 Base) MCG/ACT inhaler Inhale 2 puffs every 4 hours as needed for wheezing. 05/27/24 06/26/24 Mikal Woodson MD Objective: Vitals: 06/14/24 0406 06/14/24 0505 06/14/24 0707 06/14/24 1110 BP: 116/72 105/68 105/74 108/77 BP Location: Right arm Patient Position: Lying Sitting Pulse: 82 90 77 85 Resp: 16 17 16 16 Temp: 36.7 ?C (98.1 ?F) 36.7 ?C (98.1 ?F) TempSrc: Temporal Oral SpO2: 99% 98% 99% 100% Weight: Height: Physical Exam Constitutional: General: She is not in acute distress. Appearance: Normal appearance. She is not ill-appearing or toxic-appearing. HENT: Head: Normocephalic and atraumatic. Eyes: General: No scleral icterus. Cardiovascular: Rate and Rhythm: Normal rate and regular rhythm. Pulses: Normal pulses. Heart sounds: Normal heart sounds. No murmur heard. Pulmonary: Effort: Pulmonary effort is normal. No respiratory distress. Breath sounds: Normal breath sounds. No wheezing or rales. Abdominal: General: Bowel sounds are normal. There is no distension. Palpations: Abdomen is soft. There is no mass. Tenderness: There is no abdominal tenderness. There is no guarding. Musculoskeletal: General: Normal range of motion. Right lower leg: No edema. Left lower leg: No edema. Skin: General: Skin is warm and dry. Findings: No rash. Neurological: Mental Status: She is alert and oriented to person, place, and time. Psychiatric: Mood and Affect: Mood normal. Behavior: Behavior normal. Select Recent Labs BMP: Recent Labs 06/14/24 013 NA 135* K 4.0 CL 106 CO2 22 BUN 10 CREATININE 0.73 CALCIUM 8.8 LFTs: Recent Labs 06/14/24 013 BILIRUBINU Negative Glucose: Recent Labs 06/14/24 013 GLUCOSE 110* Procal: No results for input(s): PROCAL in the last 72 hours. CBC: Recent Labs 06/14/24135 WBC 5.6 HGB 10.5* HCT 30.8* PLT 290 MCV 77. (more content not included)... [facility] 06-14-2024 History and physical note Internal Medicine: Med Team Initial History and Physical Sumit Peter : 2005(18 y.o.) Date: June 14, 2024 TEAM: A Attending: Dr. Fabian Subjective: Chief Complaint: lightheaded/UTI Dizziness Associated symptoms include nausea. Pertinent negatives include no chest pain, chills, fatigue, fever, headaches, rash, vomiting or weakness. Vaginal Itching Associated symptoms include back pain (intermittent on left side), dysuria, nausea and urgency. Pertinent negatives include no chills, diarrhea, fever, flank pain, headaches, hematuria, rash or vomiting. Sumit Green is a 18 y.o. female with no significant Pmhx that presented to [facility] on 06/14/2024 from home after feeling lightheaded and nauseaous at work yesterday. During this visit, she was found to be 6 week and evidence of urinary tract infection on UA. She was given one dose of ceftriaxone and was evaluated by OB and underwent US pelvic ultrasound that showed 1.8 cm subchorionic hemorrhage. Denied any systemic symptoms of fever, chills, SOB, abdominal pain. Stated that she does have some nausea but no vomit and some suprapubic and back pain on the left side. However pain completely resolved at the time of my encounter. Patient stated that most of her symptoms are dysuria, burning, increase urine frequency. Stated that she also had previous episode of UTI last month that was treated with penicillin outpatient. In addition, also had hx of kidney stones that naturally passed and hx of yeast infection that resolved with Vagisil OTC cream. Patient denied smoking, etoh use, or drug use. Endorsed sexually active with her fiance and occasionally used protection. Patient was hemodynamically stable. Labs showed no leukocytosis. UA showed 25 leukocytes and moderate bacteria. Review of Systems Constitutional: Negative for activity change, appetite change, chills, fatigue and fever. HENT: Negative for nosebleeds. Respiratory: Negative for shortness of breath. Cardiovascular: Negative for chest pain and leg swelling. Gastrointestinal: Positive for nausea. Negative for blood in stool, diarrhea and vomiting. Genitourinary: Positive for dysuria and urgency. Negative for flank pain, genital sores (had this a week ago due to yeast infection but now resolved) and hematuria. Musculoskeletal: Positive for back pain (intermittent on left side). Skin: Negative for rash. Neurological: Positive for dizziness and light-headedness. Negative for weakness and headaches. Hematological: Does not bruise/bleed easily. History reviewed. No pertinent past medical history. History reviewed. No pertinent surgical history. No family history on file. Social History Tobacco Use Smoking Status Never Smokeless Tobacco Never Social History Substance and Sexual Activity Alcohol Use Never Social History Substance and Sexual Activity Drug Use Never No Known Allergies Prior to Admission medications Medication Sig Start Date End Date Taking? Authorizing Provider albuterol 108 (90 Base) MCG/ACT inhaler Inhale 2 puffs every 4 hours as needed for wheezing. 05/27/24 06/26/24 Mikal Woodson MD Objective: Vitals: 06/14/24 0406 06/14/24 0505 06/14/24 0707 06/14/24 1110 BP: 116/72 105/68 105/74 108/77 BP Location: Right arm Patient Position: Lying Sitting Pulse: 82 90 77 85 Resp: 16 17 16 16 Temp: 36.7 C (98.1 F) 36.7 C (98.1 F) TempSrc: Temporal Oral SpO2: 99% 98% 99% 100% Weight: Height: Physical Exam Constitutional: General: She is not in acute distress. Appearance: Normal appearance. She is not ill-appearing or toxic-appearing. HENT: Head: Normocephalic and atraumatic. Eyes: General: No scleral icterus. Cardiovascular: Rate and Rhythm: Normal rate and regular rhythm. Pulses: Normal pulses. Heart sounds: Normal heart sounds. No murmur heard. Pulmonary: Effort: Pulmonary effort is normal. No respiratory distress. Breath sounds: Normal breath sounds. No wheezing or rales. Abdominal: General: Bowel sounds are normal. There is no distension. Palpations: Abdomen is soft. There is no mass. Tenderness: There is no abdominal tenderness. There is no guarding. Musculoskeletal: General: Normal range of motion. Right lower leg: No edema. Left lower leg: No edema. Skin: General: Skin is warm and dry. Findings: No rash. Neurological: Mental Status: She is alert and oriented to person, place, and time. Psychiatric: Mood and Affect: Mood normal. Behavior: Behavior normal. Select Recent Labs BMP: Recent Labs 06/14/24135 NA 135* K 4.0 CL 106 CO2 22 BUN 10 CREATININE 0.73 CALCIUM 8.8 LFTs: Recent Labs 06/14/24135 BILIRUBINU Negative Glucose: Recent Labs 06/14/24 013 GLUCOSE 110* Procal: No results for input(s): PROCAL in the last 72 hours. CBC: Recent Labs 06/14/24135 WBC 5.6 HGB 10.5* HCT 30.8* PLT 290 MCV 77.6 RDW 14.1 ABGs: No results for input(s): PHART, WCC2OFB, PO2ART, APF9ZUA, SO2ART, I9XYONCC in the last 72 hours. Lactic Acid: No results for input(s): LACTATE in the last 72 hours. INR: No results for input(s): INR in the last 72 hours. Cardiac Injury Profile: No results for input(s): CKTOTAL, CKMB, TROPONINI, TROPHSBASE, TROPHS2, BNP in the last 72 hours. Labs in Last 3 months: No results found for: TSH, VITD25, PSA, INR, GLUF Assessment and Plan: Principal Problem: Recurrent UTI (urinary tract infection) complicating , first trimester Complicated UTI during first trimester (2nd episode in 2 months) Nicki infection on UA - Previously treated outpatient with penicillin - Though patient is at elevated risk of pyelonephritis due to , she does not have any leukocytosis and systemic symptoms. - UA showed leukocytes and bacteria --> Ucx pending, - Given one dose of Ceftriaxone IV in the ED, will continue daily ceftriaxone IV 1g for complicated UTI and likely transition to oral antibiotics depending on Ucx microbiology result. - Checked and trend procalcitonin - Will order US retroperitoneum to check for pyelonephritis though she does not have symptoms suggested it and US may not be the best modality to detect but CT is unfavorable due to exposure to radiation. - Daily CBC - Checked STD labs of HIV, Gonorrhea/chlamydia, Hep C - Discussed with OB, will hold off nicki treatment at this time until antibiotic course completes. Patient stated that genital sores resolved with OTC Vagisil cream 1st Trimester Subchorionic hemorrhage on US pelvic - OBGYN evaluated and followed - Per OB team, pelvic US is unconcerning and subchorionic hemorrhage unlikely to contribute to back/suprapubic pain - Started vitamin and folic acid daily. - Goals of Care: FULL CODE - DVT Prophylaxis: SCD's or Sequential Compression Device - GI Prophylaxis: Not Indicated - Diet: General - BMI Classification: Body mass index is 17.64 kg/m . Normal (BMI 18.5-24.9) - Disposition: Admit to [facility]. - Given the signs and symptoms associated with her primary diagnosis in the setting of her comorbid conditions, she is expected to require >48 hrs of hospital care (i.e. inpatient level care). I saw and evaluated the patient. I agree with the findings and plan of care as documented in the resident's note, except as noted in Green text. Patient seen and examined personally during bedside teaching rounds (Date of Service: 06/14/24) [place] Changes to Care Plan: -seems more likely complicated UTI rather than pyelonephritis. -no systemic symptoms (no leukocytosis, fever, tachycardia) -no flank pain. -will likely wait for sensitivities and discharge tomorrow on oral antibiotics. 7AM-5PM: contact resident on [facility] Med A (find by hovering over attending's name on left side of patient's chart) 5PM-7AM: contact AI3 res documented in this encounter [facility] 06-14-2024 Consult note Formatting of th is note is different from the original. Images from the original note were not included. [employer]EE CONSULTANT Consult Patient Name: Sumit Green Patient : 2005 Room/Bed: Admission Date/Time: 06/14/2024 1:25 AM Primary Care Physician: Jeremy Vásquez HPI: Sumit Green is a 18 y.o. female presented to the [place] emergency department after having suprapubic pain for the past 3 to 4 days and new onset flank pain with syncopal episodes at work and home. Patient also having vaginal discharge that she thought was yeast infection. hCG collected with +17,000. UA was positive for moderate bacteria and abdominal exam was positive for suprapubic pain and CVA tenderness. Patient received Rocephin prior to transfer [facility] for further evaluation Patient was transferred to [facility] for transvaginal ultrasound that showed gestational sac measuring approximately 13mm with estimated gestational age of 6 weeks 1 day noted a 1.8 cm subchorionic hemorrhage. Based on clinical exam and urinalysis concern for pyelonephritis and early Patient also reported that she had concerned of a yeast infection and has been using Monistat cream for a few days. Vaginitis panel upon admission was also positive for Nicki. LMP 05/09/24 REVIEW OF SYSTEMS: A minimum of an eleven point review of systems was completed. Review of Systems Constitutional: Negative for chills and fever. Cardiovascular: Negative for chest pain. Gastrointestinal: Negative for abdominal pain, nausea and vomiting. Genitourinary: Positive for dysuria and pelvic pain. Negative for vaginal bleeding, vaginal discharge and vaginal pain. Neurological: Negative for weakness. Social History: TOBACCO: reports that she has never smoked. She has never used smokeless tobacco. ETOH: reports no history of alcohol use. GYNECOLOGICAL HISTORY: Menstrual History: Regular menses, LMP 05/09 Sexually Active: single partner, contraception - none STD History: no past history Pap History: Not applicable Contraception: no method OBSTETRICAL HISTORY: OB History Para Term AB Living 1 0 0 0 0 0 SAB IAB Ectopic Multiple Live Births 0 0 0 0 0 # Outcome Date GA Lbr Morales/2nd Weight Sex Type Anes PTL Lv 1 Current PAST MEDICAL HISTORY: History reviewed. No pertinent past medical history. PAST SURGICAL HISTORY: History reviewed. No pertinent surgical history. ALLERGIES: No Known Allergies MEDICATIONS: No current facility-administered medications for this encounter. Current Outpatient Medications: albuterol 108 (90 Base) MCG/ACT inhaler, Inhale 2 puffs every 4 hours as needed for wheezing., Disp: 18 g, Rfl: 0 FAMILY HISTORY: family history is not on file. SOCIAL HISTORY: Social Connections: Not on file Medications: Current Inpatient No current facility-administered medications for this encounter. Current Outpatient Medications Medication Sig Dispense Refill albuterol 108 (90 Base) MCG/ACT inhaler Inhale 2 puffs every 4 hours as needed for wheezing. 18 g 0 VITALS: BP 105/74 (BP Location: Right arm, Patient Position: Lying) Pulse 77 Temp 36.7 C (98.1 F) (Temporal) Resp 16 Ht 5' 5 (1.651 m) Wt 106 lb (48.1 kg) SpO2 99% BMI 17.64 kg/m PHYSICAL EXAM: Physical Exam Constitutional: Appearance: Normal appearance. HENT: Head: Normocephalic. Eyes: Extraocular Movements: Extraocular movements intact. Cardiovascular: Rate and Rhythm: Normal rate. Pulmonary: Effort: Pulmonary effort is normal. Abdominal: General: Abdomen is flat. There is no distension. Palpations: Abdomen is soft. Tenderness: There is abdominal tenderness. There is no guarding or rebound. Comments: Suprapubic tenderness Musculoskeletal: Cervical back: Normal range of motion. Neurological: General: No focal deficit present. Mental Status: She is alert and oriented to person, place, and time. Psychiatric: Mood and Affect: Mood normal. LAB RESULTS: Lab Results Component Value Date WBC 5.6 06/14/2024 HGB 10.5 (L) 06/14/2024 HCT 30.8 (L) 06/14/2024 MCV 77.6 06/14/2024 PLT 290 06/14/2024 Lab Results Component Value Date NA 135 (L) 06/14/2024 K 4.0 06/14/2024 CL 106 06/14/2024 CO2 22 06/14/2024 BUN 10 06/14/2024 CREATININE 0.73 06/14/2024 GLUCOSE 110 (H) 06/14/2024 CALCIUM 8.8 06/14/2024 Urinalysis: Clarity, Urine Date Value Ref Range Status 06/14/2024 Clear Clear Final Color, Urine Date Value Ref Range Status 06/14/2024 Yellow Lt. Yellow Final Blood, Urine Date Value Ref Range Status 06/14/2024 Negative Negative mg/dL Final Glucose, Urine Date Value Ref Range Status 06/14/2024 Normal Normal (<70) mg/dL Final DIAGNOSTICS: US pelvis transvaginal Result Date: 06/14/2024 [facility] 2005 [id number] Exam Date/Time: 06/14/2024 05:38 Procedure: US PELVIS TRANSVAGINAL Ordering Provider: IVAN STEPHEN Reason For Exam: Pain/positive /quant [id number] EXAM TYPE: US PELVIS TRANSVAGINAL EXAM DATE AND TIME: 06/14/2024 5:38 AM EST INDICATION: 18 years Female with . LMP is 05/09/2024. Beta-hCG level is 17,685 mIu/ml. COMPARISON: None. TECHNIQUE: Ultrasonographic evaluation of the pelvis was performed including color flow and spectral Doppler imaging. FINDINGS: UTERUS: Uterus is anteverted and measures 9.3 x 6 x 5.3 cm. Gestation(s): Single, saclike structure containing yolk sac. No pole is identified. Estimated gestational age of 6 weeks, 1 day based on 13 mm gestational sac diameter. No pole is visualized. heart motion: No heart tones. Subchorionic hemorrhage: 1.8 x 0.7 x 0.5 cm. Cervix: 4.6cm in length and closed. ADNEXA / OVARIES: No adnexal mass seen. Right ovary: 2.8 x 2.3 x 2 cm. Normal in size. Normal Doppler flow. Left ovary: 2.7 x 1.8 x 2.2 cm. Normal in size. Normal Doppler flow. FREE FLUID: Trace pelvic free fluid. Probable intrauterine gestational sac at proximal 6 weeks, 1 day gestational age. No pole is visualized. 1.8 cm subchorionic hemorrhage. Ectopic is not entirely excluded and follow-up beta-hCG and pelvic ultrasound are suggested. Report Dictated on Electronically Signed By: Suhail Card DO Electronically Signed Date/Time: 06/14/2024 6:45 AM EST ASSESSMENT & PLAN: Sumit Green is a 18 y.o. female Pyelonephritis - Presented to the [place] emergency department after having suprapubic pain for the past 3 to 4 days and new onset flank pain with syncopal episodes at work and home. Patient also having vaginal discharge that she thought was yeast infection. - hCG collected with +17,000. - UA was positive for moderate bacteria and abdominal exam was positive for suprapubic pain and CVA tenderness. - Patient received Rocephin prior to transfer [facility] for further evaluation - Patient was transferred to [facility] for transvaginal ultrasound that showed gestational sac measuring approximately 13mm with estimated gestational age of 6 weeks 1 day noted a 1.8 cm subchorionic hemorrhage. - Based on clinical exam and urinalysis concern for pyelonephritis and early - Recommend patient be admitted for IV antibiotics in the setting of pyelonephritis Early Subchorionic Hemorrhage - Patient was transferred to [facility] for transvaginal ultrasound that showed gestational sac measuring approximately 13mm with estimated gestational age of 6 weeks 1 day noted a 1.8 cm subchorionic hemorrhage. - heart rate not noted on ultrasound today -Plan for repeat ultrasound in 2 weeks to assess for viability -Also provided patient with bleeding precautions if patient were to have any vaginal bleeding passing clots intense lower abdominal cramping to follow-up with her office or come to the emergency department - Recommended safe medications for Medications safe to take during Type of Remedy: Allergy Diphenhydramine (Benadryl ) Loratidine (Claritin ) Cetirizine (Zyrtec ) Type of Remedy: Cold and Flu Diphenhydramine (Benadryl)* Dextromethorphan (Robitussin )* Guaifenesin (Mucinex [plain]) * Vicks Vapor Rub mentholated cream Mentholated or non-mentholated cough drops (Sugar-free cough drops for gestational diabetes should not contain blends of herbs or aspartame) Pseudoephedrine ([Sudafed ] after 1st trimester) Acetaminophen (Tylenol )* Saline nasal drops or spray Warm salt/water gargle *Note: Do not take the SA (Sustained Action) form of these drugs or the Multi-Symptom form of these drugs. Do not use Nyquil due to its high alcohol content. Type of Remedy: Diarrhea Loperamide ([Imodium ] after 1st trimester, for 24 hours only) Type of Remedy: Constipation Methylcellulose fiber (Citrucel ) Docusate (Colace ) psyllium (Fiberall , Metamucil ) polycarbophil (FiberCon ) polyethylene glycol (MiraLAX )* *Occasional use only Type of Remedy: Headache Acetaminophen (Tylenol) Type of Remedy: Heartburn/Nausea Aluminum hydroxide/magnesium carbonate (Gaviscon )* Famotidine (Pepcid AC ) Aluminum hydroxide/magnesium hydroxide (Maalox ) Calcium carbonate/magnesium carbonate (Mylanta ) Calcium carbonate (Titralac , Tums ) Ranitidine (Zantac ) Zofran (ondansetron) after 10 weeks Compazine Reglan Benadryl *Occasional use only Type of Remedy: Hemorrhoids Phenylephrine/mineral oil/petrolatum (Preparation H ) Witch sumaya (Tucks pads or ointment) Type of Remedy: Sleep Diphenhydramine (Unisom SleepGels , Benadryl) *Please note: No drug can be considered 100% safe to use during . Yeast Infection -Recommend Terazol cream vaginally nightly for 3 days Chief Complaint Patient presents with Dizziness Vaginal Itching 1. Pyelonephritis affecting , antepartum Plan discussed with Dr. Velásquez, who is agreeable. Please page the [facility] OBGYN Call RES group via Secure Chat for any questions or concerns. Mindy Soriano DO 06/14/2024, 8:33 AM Cosigned by Karrie Velásquez DO at 06/14/2024 5:52 PM EST Associated attestation - Karrie Velásquez DO - 06/14/2024 5:52 PM EST Hospital Care (Present): I was present with the resident during the history and exam. I discussed the case with the resident and agree with the findings and plan as documented in the resident's note. [facility] Phone: 06-14-2024 Consult note Formatting of th is note is different from the original. Images from the original note were not included. J2EE CONSULTANT Consult Patient Name: Sumit Green Patient : 2005 Room/Bed: Admission Date/Time: 06/14/2024 1:25 AM Primary Care Physician: Jeremy Vásquez HPI: Sumit Green is a 18 y.o. female presented to the [place] emergency department after having suprapubic pain for the past 3 to 4 days and new onset flank pain with syncopal episodes at work and home. Patient also having vaginal discharge that she thought was yeast infection. hCG collected with +17,000. UA was positive for moderate bacteria and abdominal exam was positive for suprapubic pain and CVA tenderness. Patient received Rocephin prior to transfer [facility] for further evaluation Patient was transferred to [facility] for transvaginal ultrasound that showed gestational sac measuring approximately 13mm with estimated gestational age of 6 weeks 1 day noted a 1.8 cm subchorionic hemorrhage. Based on clinical exam and urinalysis concern for pyelonephritis and early Patient also reported that she had concerned of a yeast infection and has been using Monistat cream for a few days. Vaginitis panel upon admission was also positive for Nicki. LMP 05/09/24 REVIEW OF SYSTEMS: A minimum of an eleven point review of systems was completed. Review of Systems Constitutional: Negative for chills and fever. Cardiovascular: Negative for chest pain. Gastrointestinal: Negative for abdominal pain, nausea and vomiting. Genitourinary: Positive for dysuria and pelvic pain. Negative for vaginal bleeding, vaginal discharge and vaginal pain. Neurological: Negative for weakness. Social History: TOBACCO: reports that she has never smoked. She has never used smokeless tobacco. ETOH: reports no history of alcohol use. GYNECOLOGICAL HISTORY: Menstrual History: Regular menses, LMP 05/09 Sexually Active: single partner, contraception - none STD History: no past history Pap History: Not applicable Contraception: no method OBSTETRICAL HISTORY: OB History Para Term AB Living 1 0 0 0 0 0 SAB IAB Ectopic Multiple Live Births 0 0 0 0 0 # Outcome Date GA Lbr Morales/2nd Weight Sex Type Anes PTL Lv 1 Current PAST MEDICAL HISTORY: History reviewed. No pertinent past medical history. PAST SURGICAL HISTORY: History reviewed. No pertinent surgical history. ALLERGIES: No Known Allergies MEDICATIONS: No current facility-administered medications for this encounter. Current Outpatient Medications: albuterol 108 (90 Base) MCG/ACT inhaler, Inhale 2 puffs every 4 hours as needed for wheezing., Disp: 18 g, Rfl: 0 FAMILY HISTORY: family history is not on file. SOCIAL HISTORY: Social Connections: Not on file Medications: Current Inpatient No current facility-administered medications for this encounter. Current Outpatient Medications Medication Sig Dispense Refill albuterol 108 (90 Base) MCG/ACT inhaler Inhale 2 puffs every 4 hours as needed for wheezing. 18 g 0 VITALS: BP 105/74 (BP Location: Right arm, Patient Position: Lying) Pulse 77 Temp 36.7 C (98.1 F) (Temporal) Resp 16 Ht 5' 5 (1.651 m) Wt 106 lb (48.1 kg) SpO2 99% BMI 17.64 kg/m PHYSICAL EXAM: Physical Exam Constitutional: Appearance: Normal appearance. HENT: Head: Normocephalic. Eyes: Extraocular Movements: Extraocular movements intact. Cardiovascular: Rate and Rhythm: Normal rate. Pulmonary: Effort: Pulmonary effort is normal. Abdominal: General: Abdomen is flat. There is no distension. Palpations: Abdomen is soft. Tenderness: There is abdominal tenderness. There is no guarding or rebound. Comments: Suprapubic tenderness Musculoskeletal: Cervical back: Normal range of motion. Neurological: General: No focal deficit present. Mental Status: She is alert and oriented to person, place, and time. Psychiatric: Mood and Affect: Mood normal. LAB RESULTS: Lab Results Component Value Date WBC 5.6 06/14/2024 HGB 10.5 (L) 06/14/2024 HCT 30.8 (L) 06/14/2024 MCV 77.6 06/14/2024 PLT 290 06/14/2024 Lab Results Component Value Date NA 135 (L) 06/14/2024 K 4.0 06/14/2024 CL 106 06/14/2024 CO2 22 06/14/2024 BUN 10 06/14/2024 CREATININE 0.73 06/14/2024 GLUCOSE 110 (H) 06/14/2024 CALCIUM 8.8 06/14/2024 Urinalysis: Clarity, Urine Date Value Ref Range Status 06/14/2024 Clear Clear Final Color, Urine Date Value Ref Range Status 06/14/2024 Yellow Lt. Yellow Final Blood, Urine Date Value Ref Range Status 06/14/2024 Negative Negative mg/dL Final Glucose, Urine Date Value Ref Range Status 06/14/2024 Normal Normal (<70) mg/dL Final DIAGNOSTICS: US pelvis transvaginal Result Date: 06/14/2024 [facility] 2005 [id number] Exam Date/Time: 06/14/2024 05:38 Procedure: US PELVIS TRANSVAGINAL Ordering Provider: IVAN STEPHEN Reason For Exam: Pain/positive /quant [id number] EXAM TYPE: US PELVIS TRANSVAGINAL EXAM DATE AND TIME: 06/14/2024 5:38 AM EST INDICATION: 18 years Female with . LMP is 05/09/2024. Beta-hCG level is 17,685 mIu/ml. COMPARISON: None. TECHNIQUE: Ultrasonographic evaluation of the pelvis was performed including color flow and spectral Doppler imaging. FINDINGS: UTERUS: Uterus is anteverted and measures 9.3 x 6 x 5.3 cm. Gestation(s): Single, saclike structure containing yolk sac. No pole is identified. Estimated gestational age of 6 weeks, 1 day based on 13 mm gestational sac diameter. No pole is visualized. heart motion: No heart tones. Subchorionic hemorrhage: 1.8 x 0.7 x 0.5 cm. Cervix: 4.6cm in length and closed. ADNEXA / OVARIES: No adnexal mass seen. Right ovary: 2.8 x 2.3 x 2 cm. Normal in size. Normal Doppler flow. Left ovary: 2.7 x 1.8 x 2.2 cm. Normal in size. Normal Doppler flow. FREE FLUID: Trace pelvic free fluid. Probable intrauterine gestational sac at proximal 6 weeks, 1 day gestational age. No pole is visualized. 1.8 cm subchorionic hemorrhage. Ectopic is not entirely excluded and follow-up beta-hCG and pelvic ultrasound are suggested. Report Dictated on Electronically Signed By: Suhail Card DO Electronically Signed Date/Time: 06/14/2024 6:45 AM EST ASSESSMENT & PLAN: Sumit Green is a 18 y.o. female Pyelonephritis - Presented to the [place] emergency department after having suprapubic pain for the past 3 to 4 days and new onset flank pain with syncopal episodes at work and home. Patient also having vaginal discharge that she thought was yeast infection. - hCG collected with +17,000. - UA was positive for moderate bacteria and abdominal exam was positive for suprapubic pain and CVA tenderness. - Patient received Rocephin prior to transfer [facility] for further evaluation - Patient was transferred to [facility] for transvaginal ultrasound that showed gestational sac measuring approximately 13mm with estimated gestational age of 6 weeks 1 day noted a 1.8 cm subchorionic hemorrhage. - Based on clinical exam and urinalysis concern for pyelonephritis and early - Recommend patient be admitted for IV antibiotics in the setting of pyelonephritis Early Subchorionic Hemorrhage - Patient was transferred to [facility] for transvaginal ultrasound that showed gestational sac measuring approximately 13mm with estimated gestational age of 6 weeks 1 day noted a 1.8 cm subchorionic hemorrhage. - heart rate not noted on ultrasound today -Plan for repeat ultrasound in 2 weeks to assess for viability -Also provided patient with bleeding precautions if patient were to have any vaginal bleeding passing clots intense lower abdominal cramping to follow-up with her office or come to the emergency department - Recommended safe medications for Medications safe to take during Type of Remedy: Allergy Diphenhydramine (Benadryl ) Loratidine (Claritin ) Cetirizine (Zyrtec ) Type of Remedy: Cold and Flu Diphenhydramine (Benadryl)* Dextromethorphan (Robitussin )* Guaifenesin (Mucinex [plain]) * Vicks Vapor Rub mentholated cream Mentholated or non-mentholated cough drops (Sugar-free cough drops for gestational diabetes should not contain blends of herbs or aspartame) Pseudoephedrine ([Sudafed ] after 1st trimester) Acetaminophen (Tylenol )* Saline nasal drops or spray Warm salt/water gargle *Note: Do not take the SA (Sustained Action) form of these drugs or the Multi-Symptom form of these drugs. Do not use Nyquil due to its high alcohol content. Type of Remedy: Diarrhea Loperamide ([Imodium ] after 1st trimester, for 24 hours only) Type of Remedy: Constipation Methylcellulose fiber (Citrucel ) Docusate (Colace ) psyllium (Fiberall , Metamucil ) polycarbophil (FiberCon ) polyethylene glycol (MiraLAX )* *Occasional use only Type of Remedy: Headache Acetaminophen (Tylenol) Type of Remedy: Heartburn/Nausea Aluminum hydroxide/magnesium carbonate (Gaviscon )* Famotidine (Pepcid AC ) Aluminum hydroxide/magnesium hydroxide (Maalox ) Calcium carbonate/magnesium carbonate (Mylanta ) Calcium carbonate (Titralac , Tums ) Ranitidine (Zantac ) Zofran (ondansetron) after 10 weeks Compazine Reglan Benadryl *Occasional use only Type of Remedy: Hemorrhoids Phenylephrine/mineral oil/petrolatum (Preparation H ) Witch sumaya (Tucks pads or ointment) Type of Remedy: Sleep Diphenhydramine (Unisom SleepGels , Benadryl) *Please note: No drug can be considered 100% safe to use during . Yeast Infection -Recommend Terazol cream vaginally nightly for 3 days Chief Complaint Patient presents with Dizziness Vaginal Itching 1. Pyelonephritis affecting , antepartum Plan discussed with Dr. Velásquez, who is agreeable. Please page the [facility] OBGYN Call RES group via Secure Chat for any questions or concerns. Mindy Soriano DO 06/14/2024, 8:33 AM Cosigned by Karrie Velásquez DO at 06/14/2024 5:52 PM EST Associated attestation - Karrie Velásquez DO - 06/14/2024 5:52 PM EST Hospital Care (Present): I was present with the resident during the history and exam. I discussed the case with the resident and agree with the findings and plan as documented in the resident's note. documented in this encounter [facility] 06-14-2024 Emergency department Note Transfer papers given to patient with instructions on how to get to [facility] ED. Patient verbalized understanding. [facility] 06-14-2024 Emergency department Note Phoned [facility] ED. Hand off report given to charge nurse. [facility] 06-14-2024 Emergency department Note Transfer papers given to patient with instructions on how to get to [facility] ED. Patient verbalized understanding. Phoned [facility] ED. Hand off report given to charge nurse. EMERGENCY DEPARTMENT ENCOUNTER Pt Name: Sumit Green Birthdate 2005 Date of evaluation: 06/14/2024 ED Provider: Zahira Graham DO CHIEF COMPLAINT Chief Complaint Patient presents with Dizziness Vaginal Itching HISTORY OF PRESENT ILLNESS (Location/Symptom, Timing/Onset, Context/Setting, Quality, Duration, Modifying Factors, Severity) Note limiting factors. I wore appropriate PPE for the entirety of this encounter. HPI Sumit Green is a 18 y.o. who presents to the emergency department with chief complaint of dysuria, urinary frequency and urgency for the last 3 days. Patient also had an episode of syncope earlier today. States that she was walking up the stairs when she had tunnel vision and felt numb all over. She had ringing in her ears and then lost consciousness in the bathroom while going to the bathroom. Denies any chest pain or shortness of breath. No fevers or chills. No nausea or vomiting. Does have some suprapubic abdominal pain. Also reports some back pain right greater than left. Nursing Notes were reviewed. Limitations to history: None Outside historians: None REVIEW OF SYSTEMS Review of Systems Pertinent positives and negatives as per HPI. PAST MEDICAL HISTORY History reviewed. No pertinent past medical history. SURGICAL HISTORY History reviewed. No pertinent surgical history. CURRENT MEDICATIONS Current Discharge Medication List CONTINUE these medications which have NOT CHANGED Details albuterol 108 (90 Base) MCG/ACT inhaler Inhale 2 puffs every 4 hours as needed for wheezing. Qty: 18 g, Refills: 0 ALLERGIES Patient has no known allergies. FAMILY HISTORY No family history on file. SOCIAL HISTORY Social History Socioeconomic History Marital status: Single Tobacco Use Smoking status: Never Smokeless tobacco: Never Vaping Use Vaping status: Every Day Substance and Sexual Activity Alcohol use: Never Drug use: Never SCREENINGS [place] Coma Scale Best Eye Response: Spontaneous Best Verbal Response: Oriented Best Motor Response: Follows commands [place] Coma Scale Score: 15 PHYSICAL EXAM ED Triage Vitals Temp Pulse Resp BP -- -- -- -- SpO2 Temp src Heart Rate Source Patient Position -- -- -- -- BP Location FiO2 (%) -- -- Physical Exam Constitutional: Well-developed and well-nourished. No distress. HENT: Mucous membranes moist Cardiovascular: Regular rate and rhythm. No abnormal heart sounds heard. Pulmonary/Chest: Effort normal with no conversational dyspnea. Clear to auscultation bilaterally. Abdominal: Soft. Suprapubic abdominal tenderness. No distension or guarding. Bilateral CVA tenderness to palpation, right greater than left Musculoskeletal: Normal range of motion of all extremities Neuro: No focal deficit Skin: Skin is warm and dry. Psychiatric: Normal mood and affect. DIAGNOSTIC RESULTS Procedures/EKG: EKG was reviewed by myself. Physician EKG interpretation can be found in [facility] RADIOLOGY (Per Emergency Physician): Interpretation per the Radiologist below, if available at the time of this note: No orders to display ED BEDSIDE ULTRASOUND: Performed by ED Physician - none LABS: Labs Reviewed BASIC METABOLIC PANEL - Abnormal Result Value SODIUM 135 (*) POTASSIUM 4.0 CHLORIDE 106 CARBON DIOXIDE 22 UREA NITROGEN 10 CREATININE 0.73 GLUCOSE 110 (*) CALCIUM 8.8 ANION GAP 7 eGFR >90.0 CBC (HEMOGRAM) - Abnormal Auto WBC 5.6 RBC 3.97 Hemoglobin 10.5 (*) Hematocrit 30.8 (*) MCV 77.6 MCH 26.4 MCHC 34.1 RDW 14.1 Platelets 290 MPV 8.5 (*) COMPLETE URINALYSIS - Abnormal Color, Urine Yellow Clarity, Urine Clear pH, Urine 6.0 Leukocytes, Urine 25 (*) Nitrite, Urine Negative Protein, Urine 20 (*) Glucose, Urine Normal Bilirubin, Urine Negative Ketones, Urine Negative Urobilinogen, Urine Normal Blood, Urine Negative Volume, Urine 12 mL RBC, Urine Negative WBC, Urine 0-2 Squamous Epithelial, Urine 3-5 Bacteria, Urine Moderate (*) Mucus, Urine Few SPECIFIC GRAVITY OF URINE (NUMERIC) 1.024 VAGINITIS PANEL MVP PCR COMPLETE URINALYSIS WITH REFLEX TO CULTURE Narrative: The following orders were created for panel order Urinalysis complete with reflex to Culture. Procedure Abnormality Status --------- ------ Complete Urinalysis[[id number]] Abnormal Final result Please view results for these tests on the individual orders. HCG QUALITATIVE URINE HCG,URINE QUAL Positive Narrative: is the most common reason for HCG in urine, although choriocarcinoma, hydatidiform mole, and certain nontrophoblastic malignancies also result in detectable urinary HCG levels. Sensitivity = 20mIU/mL. HCG QUANTITATIVE BLOOD HCG QUANTITATIVE 17,685.3 Narrative: Values in should double every 2 to 3 days for the first 6 weeks. Elevated concentrations of human chorionic gonadotropin (hCG) measured in the first trimester of are observed in normal , but may serve as an indication of chorionic carcinoma, hydatiform mole, or multiple . Decreasing hCG concentrations indicate threatened or missed , recent termination of , ectopic , gestosis or intrauterine . Mel- and postmenopausal females may have detectable hCG concentrations (< or = to 14 mIU/mL) due to pituitary production of hCG. Serum follicle-stimulating hormone measurement may aid in ruling-out in this population. Cutoffs of greater than 20 to 45 mIU/mL have been suggested and are method dependent. False-elevations (called phantom human chorionic gonadotropin: hCG) may occur with patients who have human antianimal or heterophilic antibodies. Some specimens may not dilute linearly due to abnormal forms of hCG. Elevated hCG concentrations not associated with are found in patients with other diseases such as tumors of the germ cells, ovaries, bladder, pancreas, stomach, lungs, and liver. This test is not intended to detect or monitor tumors or gestational trophoblastic disease. All other labs were within normal range or not returned as of this dictation. EMERGENCY DEPARTMENT COURSE and DIFFERENTIAL DIAGNOSIS/MDM: Vitals: Vitals: 06/14/24 0122 BP: 114/70 BP Location: Right arm Patient Position: Sitting Pulse: 94 Resp: 16 Temp: 36.4 C (97.5 F) TempSrc: Temporal SpO2: 100% Weight: 48.1 kg (106 lb) Height: 1.651 m (5' 5) Diagnoses as of 06/14/24 0348 Pyelonephritis affecting , antepartum The patient presented with chief complaint of dizziness, vaginal itching. The differential diagnosis associated with this patient's presentation includes anemia versus electrolyte abnormalities versus hypoglycemia versus UTI versus yeast infection versus . Our workup consisted of ordering/reviewing: Labs. Labs notable for anemia with hemoglobin of 10.5, no prior for comparison. Patient's urine test was positive so blood test was ordered to confirm. Patient was given a liter of fluids. Beta quant was elevated at 17,695. There is no acute electrolyte abnormalities or MAYO. Urinalysis concerning for infection with moderate bacteria and 25 leukocyte esterases. Patient was given 1 g Rocephin. Given CVA tenderness right greater than left there is concern for pyelonephritis.. I discussed their care with [facility] [employer], recommended ED to ED transfer for transvaginal ultrasound to confirm . Given the pyelonephritis, would likely be a medical admit with OB consult.. The patient will be Transferred. Patient is in agreement with this plan. Medications sodium chloride 0.9 % bolus 1,000 mL (0 mL IntraVENous Stopped 06/14/24 0310) cefTRIAXone (Rocephin) 1 g in sodium chloride 0.9 % 50 mL IVPB Mini-Bag Plus (0 g IntraVENous Stopped 06/14/24 0309) REVAL: CRITICAL CARE TIME None CONSULTS: None PROCEDURES: Unless otherwise noted below, none Procedures Patients symptoms are consistent with sepsis, severe sepsis, or septic shock (If yes use .sepsiscoremeasure): FINAL IMPRESSION 1. Pyelonephritis affecting , antepartum DISPOSITION Transfer To [facility] Ed 06/14/2024 03:42:53 AM PATIENT REFERRED TO: [facility] EMERGENCY DEPT [address] [id number] Go today DISCHARGE MEDICATIONS: Current Discharge Medication List (Comment: Please note this report has been produced using speech recognition software and may contain errors related to that system including errors in grammar, punctuation, and spelling, as well as words and phrases that may be inappropriate. If there are any questions or concerns please feel free to contact the dictating provider for clarification.) Zahira Graham DO (electronically signed) Emergency Medicine Provider Zahira Graham DO 06/14/24 0349 EMERGENCY DEPARTMENT ENCOUNTER Pt Name: Sumit Green Birthdate 2005 Date of evaluation: 06/14/2024 ED Provider: Abiodun Whitman DO CHIEF COMPLAINT Chief Complaint Patient presents with Dizziness Vaginal Itching HISTORY OF PRESENT ILLNESS (Location/Symptom, Timing/Onset, Context/Setting, Quality, Duration, Modifying Factors, Severity) Note limiting factors. I wore appropriate PPE for the entirety of this encounter. HPI Sumit Green is a 18 y.o. female who presents to the emergency department from OSH with concerns for pyelonephritis in . Went to OSH for syncope x 2 last night. Found to have UA concerning for possible UTI. Urine and serum bHCG positive. Discussed with OB who recommended transfer for pelvic US. Given CFTX prior to transfer. Patient reports suprapubic and LLQ abdominal pain. Also with right sided flank pain. Reports nausea but no vomiting. Denies SOB, chest pain, palpitations, vaginal bleeding, and diarrhea. Nursing Notes were reviewed. Limitations to history: None Outside historians: OSH REVIEW OF SYSTEMS Review of Systems As noted in HPI PAST MEDICAL HISTORY History reviewed. No pertinent past medical history. SURGICAL HISTORY History reviewed. No pertinent surgical history. CURRENT MEDICATIONS Current Discharge Medication List CONTINUE these medications which have NOT CHANGED Details albuterol 108 (90 Base) MCG/ACT inhaler Inhale 2 puffs every 4 hours as needed for wheezing. Qty: 18 g, Refills: 0 ALLERGIES Patient has no known allergies. FAMILY HISTORY No family history on file. SOCIAL HISTORY Social History Socioeconomic History Marital status: Single Tobacco Use Smoking status: Never Smokeless tobacco: Never Vaping Use Vaping status: Every Day Substance and Sexual Activity Alcohol use: Never Drug use: Never SCREENINGS [place] Scale Best Eye Response: Spontaneous Best Verbal Response: Oriented Best Motor Response: Follows commands [place] Scale Score: 15 PHYSICAL EXAM ED Triage Vitals [06/14/24 0122] Temp Heart Rate Resp BP 36.4 C (97.5 F) 94 16 114/70 SpO2 Temp Source Heart Rate Source Patient Position 100 % Temporal Monitor Sitting BP Location FiO2 (%) Right arm -- Physical Exam Vitals and nursing note reviewed. Constitutional: General: She is not in acute distress. Appearance: She is normal weight. She is not toxic-appearing. HENT: Head: Normocephalic and atraumatic. Right Ear: External ear normal. Left Ear: External ear normal. Nose: Nose normal. Mouth/Throat: Mouth: Mucous membranes are moist. Pharynx: Oropharynx is clear. Eyes: Extraocular Movements: Extraocular movements intact. Conjunctiva/sclera: Conjunctivae normal. Pupils: Pupils are equal, round, and reactive to light. Cardiovascular: Rate and Rhythm: Normal rate and regular rhythm. Pulses: Normal pulses. Heart sounds: Normal heart sounds. Pulmonary: Effort: Pulmonary effort is normal. Breath sounds: Normal breath sounds. Abdominal: General: Abdomen is flat. There is no distension. Palpations: Abdomen is soft. Tenderness: There is abdominal tenderness (suprapubic and LLQ). There is right CVA tenderness. There is no left CVA tenderness or guarding. Musculoskeletal: General: Normal range of motion. Cervical back: Normal range of motion and neck supple. Skin: General: Skin is warm and dry. Capillary Refill: Capillary refill takes less than 2 seconds. Neurological: General: No focal deficit present. Mental Status: She is alert. DIAGNOSTIC RESULTS Procedures/EKG: EKG was reviewed by myself. Physician EKG interpretation can be found in [facility] RADIOLOGY (Per Emergency Physician): Interpretation per the Radiologist below, if available at the time of this note: US pelvis transvaginal Final Result Probable intrauterine gestational sac at proximal 6 weeks, 1 day gestational age. No pole is visualized. 1.8 cm subchorionic hemorrhage. Ectopic is not entirely excluded and follow-up beta-hCG and pelvic ultrasound are suggested. Report Dictated on Electronically Signed By: Suhail Card DO Electronically Signed Date/Time: 06/14/2024 6:45 AM EST ED BEDSIDE ULTRASOUND: Performed by ED Physician - none LABS: Labs Reviewed VAGINITIS PANEL MVP PCR - Abnormal Result Value Bacterial Vaginosis Not Detected Nicki spp Detected (*) Nicki glabrata/krusei Not Detected Trichomonas Vaginalis Not Detected Narrative: Methodology: real-time PCR A negative result does not preclude a possible infection. This assay can detect the Nicki species C. albicans, C. tropicalis, C. parapsilosis, and C. dubliniensis but does not differentiate among them. The assay also detects C. glabrata and C. krusei, but does not differentiate between them. Results should be interpreted in conjunction with other clinical data. This test has not been validated for use with specimens collected by patients at home. This test is intended for medical purposes only and is not valid for the evaluation of suspected sexual abuse or for other forensic purposes. BASIC METABOLIC PANEL - Abnormal SODIUM 135 (*) POTASSIUM 4.0 CHLORIDE 106 CARBON DIOXIDE 22 UREA NITROGEN 10 CREATININE 0.73 GLUCOSE 110 (*) CALCIUM 8.8 ANION GAP 7 eGFR >90.0 CBC (HEMOGRAM) - Abnormal Auto WBC 5.6 RBC 3.97 Hemoglobin 10.5 (*) Hematocrit 30.8 (*) MCV 77.6 MCH 26.4 MCHC 34.1 RDW 14.1 Platelets 290 MPV 8.5 (*) COMPLETE URINALYSIS - Abnormal Color, Urine Yellow Clarity, Urine Clear pH, Urine 6.0 Leukocytes, Urine 25 (*) Nitrite, Urine Negative Protein, Urine 20 (*) Glucose, Urine Normal Bilirubin, Urine Negative Ketones, Urine Negative Urobilinogen, Urine Normal Blood, Urine Negative Volume, Urine 12 mL RBC, Urine Negative WBC, Urine 0-2 Squamous Epithelial, Urine 3-5 Bacteria, Urine Moderate (*) Mucus, Urine Few SPECIFIC GRAVITY OF URINE (NUMERIC) 1.024 COMPLETE URINALYSIS WITH REFLEX TO CULTURE Narrative: The following orders were created for panel order Urinalysis complete with reflex to Culture. Procedure Abnormality Status --------- ------ Complete Urinalysis[[id number]] Abnormal Final result Please view results for these tests on the individual orders. HCG QUALITATIVE URINE HCG,URINE QUAL Positive Narrative: is the most common reason for HCG in urine, although choriocarcinoma, hydatidiform mole, and certain nontrophoblastic malignancies also result in detectable urinary HCG levels. Sensitivity = 20mIU/mL. HCG QUANTITATIVE BLOOD HCG QUANTITATIVE 17,685.3 Narrative: Values in should double every 2 to 3 days for the first 6 weeks. Elevated concentrations of human chorionic gonadotropin (hCG) measured in the first trimester of are observed in normal , but may serve as an indication of chorionic carcinoma, hydatiform mole, or multiple . Decreasing hCG concentrations indicate threatened or missed , recent termination of , ectopic , gestosis or intrauterine . Mel- and postmenopausal females may have detectable hCG concentrations (< or = to 14 mIU/mL) due to pituitary production of hCG. Serum follicle-stimulating hormone measurement may aid in ruling-out in this population. Cutoffs of greater than 20 to 45 mIU/mL have been suggested and are method dependent. False-elevations (called phantom human chorionic gonadotropin: hCG) may occur with patients who have human antianimal or heterophilic antibodies. Some specimens may not dilute linearly due to abnormal forms of hCG. Elevated hCG concentrations not associated with are found in patients with other diseases such as tumors of the germ cells, ovaries, bladder, pancreas, stomach, lungs, and liver. This test is not intended to detect or monitor tumors or gestational trophoblastic disease. All other labs were within normal range or not returned as of this dictation. EMERGENCY DEPARTMENT COURSE and DIFFERENTIAL DIAGNOSIS/MDM: Vitals: Vitals: 06/14/24 0122 06/14/24 0406 06/14/24 0505 BP: 114/70 116/72 105/68 BP Location: Right arm Patient Position: Sitting Pulse: 94 82 90 Resp: 16 16 17 Temp: 36.4 C (97.5 F) 36.7 C (98.1 F) TempSrc: Temporal Temporal SpO2: 100% 99% 98% Weight: 48.1 kg (106 lb) Height: 1.651 m (5' 5) 18yo F presenting from OSH with concerns for + test with concurrent pyelonephritis. Well-appearing and well-hydrated on exam. Review of outside labs with UA showing moderate bacteria and 25 leuks. No leukocytosis. Received abx for pyelonephritis. Quant HCG of 17,685. Also vaginal swab + for nicki. On my exam continues to have ongoing abdominal pain and CVA tenderness. Pelvic US performed showing most likely intrauterine ~ 6 weeks as well as a 1.8 cm subchorionic hemorrhage without full ability to exclude ectopic . 7:52 AM Discussed with OB. Awaiting recommendations. 9:00 AM Admit to AR for IV antibiotics. OB consult on the floor. Medications sodium chloride 0.9 % bolus 1,000 mL (0 mL IntraVENous Stopped 06/14/24 0310) cefTRIAXone (Rocephin) 1 g in sodium chloride 0.9 % 50 mL IVPB Mini-Bag Plus (0 g IntraVENous Stopped 06/14/24 0309) CONSULTS: None PROCEDURES: Unless otherwise noted below, none Procedures Patients symptoms are consistent with sepsis, severe sepsis, or septic shock (If yes use .sepsiscoremeasure): No FINAL IMPRESSION 1. Pyelonephritis affecting , antepartum DISPOSITION Transfer To [facility] Ed 06/14/2024 03:42:53 AM PATIENT REFERRED TO: [facility] EMERGENCY DEPT [address] [place] [phone] Go today DISCHARGE MEDICATIONS: Current Discharge Medication List (Comment: Please note this report has been produced using speech recognition software and may contain errors related to that system including errors in grammar, punctuation, and spelling, as well as words and phrases that may be inappropriate. If there are any questions or concerns please feel free to contact the dictating provider for clarification.) Abiodun Whitman DO (electronically signed) Emergency Medicine Provider Abiodun Whitman DO Resident 06/14/24 0927 Cosigned by Omar Dupree MD at 06/14/2024 1:15 PM EST Emergency Department Encounter [facility] EMERGENCY DEPT Patient: Sumit Green : 2005 Date of Evaluation: 06/14/2024 ED Supervising Physician: Omar Dupree MD I independently examined and evaluated Sumit Green. This will serve as my Supervisory note and shared attestation. I did perform a substantive portion of the visit including all aspects of the Medical Decision Making. I wore appropriate PPE for the entirety of this encounter. In brief, Sumit Green is a 18 y.o. that presents to the emergency department as a transfer from [facility] for suspected pyelonephritis. Brief ED course/MDM: Patient evaluated here by [employer] CONSULTANT. Recommend admission to medicine and continued antibiotics. Admitted to AR. Diagnoses as of 06/14/24 0717 Pyelonephritis affecting , antepartum I personally saw the patient and made/approved the management plan and take responsibility for the patient management. All diagnostic, treatment, and disposition decisions were made by myself in conjunction with the resident. For all further details of the patient's emergency department visit, please see their documentation. (Comment: Please note this report has been produced using speech recognition software and may contain errors related to that system including errors in grammar, punctuation, and spelling, as well as words and phrases that may be inappropriate. If there are any questions or concerns please feel free to contact the dictating provider for clarification.) Omar Dupree MD Acute Care [facility] Omar Dupree MD 06/14/24 0858 Patient arrived ambulatory to room 2 without difficulty. Patient complains of dizziness yesterday and passed out for a couple of seconds. Patient also complains of vaginal itching, swelling and pain x 3 days. documented in this encounter [facility] 06-14-2024 Emergency department Triage note Patient arrived ambulatory to room 2 without difficulty. Patient complains of dizziness yesterday and passed out for a couple of seconds. Patient also complains of vaginal itching, swelling and pain x 3 days. [facility] 06-14-2024 Physician Emergency department Note EMERGENCY DEPARTMENT ENCOUNTER Pt Name: Sumit Green Birthdate 2005 Date of evaluation: 06/14/2024 ED Provider: Zahira Graham DO CHIEF COMPLAINT Chief Complaint Patient presents with Dizziness Vaginal Itching HISTORY OF PRESENT ILLNESS (Location/Symptom, Timing/Onset, Context/Setting, Quality, Duration, Modifying Factors, Severity) Note limiting factors. I wore appropriate PPE for the entirety of this encounter. HPI Sumit Green is a 18 y.o. who presents to the emergency department with chief complaint of dysuria, urinary frequency and urgency for the last 3 days. Patient also had an episode of syncope earlier today. States that she was walking up the stairs when she had tunnel vision and felt numb all over. She had ringing in her ears and then lost consciousness in the bathroom while going to the bathroom. Denies any chest pain or shortness of breath. No fevers or chills. No nausea or vomiting. Does have some suprapubic abdominal pain. Also reports some back pain right greater than left. Nursing Notes were reviewed. Limitations to history: None Outside historians: None REVIEW OF SYSTEMS Review of Systems Pertinent positives and negatives as per HPI. PAST MEDICAL HISTORY History reviewed. No pertinent past medical history. SURGICAL HISTORY History reviewed. No pertinent surgical history. CURRENT MEDICATIONS Current Discharge Medication List CONTINUE these medications which have NOT CHANGED Details albuterol 108 (90 Base) MCG/ACT inhaler Inhale 2 puffs every 4 hours as needed for wheezing. Qty: 18 g, Refills: 0 ALLERGIES Patient has no known allergies. FAMILY HISTORY No family history on file. SOCIAL HISTORY Social History Socioeconomic History Marital status: Single Tobacco Use Smoking status: Never Smokeless tobacco: Never Vaping Use Vaping status: Every Day Substance and Sexual Activity Alcohol use: Never Drug use: Never SCREENINGS El Coma Scale Best Eye Response: Spontaneous Best Verbal Response: Oriented Best Motor Response: Follows commands El Coma Scale Score: 15 PHYSICAL EXAM ED Triage Vitals Temp Pulse Resp BP -- -- -- -- SpO2 Temp src Heart Rate Source Patient Position -- -- -- -- BP Location FiO2 (%) -- -- Physical Exam Constitutional: Well-developed and well-nourished. No distress. HENT: Mucous membranes moist Cardiovascular: Regular rate and rhythm. No abnormal heart sounds heard. Pulmonary/Chest: Effort normal with no conversational dyspnea. Clear to auscultation bilaterally. Abdominal: Soft. Suprapubic abdominal tenderness. No distension or guarding. Bilateral CVA tenderness to palpation, right greater than left Musculoskeletal: Normal range of motion of all extremities Neuro: No focal deficit Skin: Skin is warm and dry. Psychiatric: Normal mood and affect. DIAGNOSTIC RESULTS Procedures/EKG: EKG was reviewed by myself. Physician EKG interpretation can be found in [facility] RADIOLOGY (Per Emergency Physician): Interpretation per the Radiologist below, if available at the time of this note: No orders to display ED BEDSIDE ULTRASOUND: Performed by ED Physician - none LABS: Labs Reviewed BASIC METABOLIC PANEL - Abnormal Result Value SODIUM 135 (*) POTASSIUM 4.0 CHLORIDE 106 CARBON DIOXIDE 22 UREA NITROGEN 10 CREATININE 0.73 GLUCOSE 110 (*) CALCIUM 8.8 ANION GAP 7 eGFR >90.0 CBC (HEMOGRAM) - Abnormal Auto WBC 5.6 RBC 3.97 Hemoglobin 10.5 (*) Hematocrit 30.8 (*) MCV 77.6 MCH 26.4 MCHC 34.1 RDW 14.1 Platelets 290 MPV 8.5 (*) COMPLETE URINALYSIS - Abnormal Color, Urine Yellow Clarity, Urine Clear pH, Urine 6.0 Leukocytes, Urine 25 (*) Nitrite, Urine Negative Protein, Urine 20 (*) Glucose, Urine Normal Bilirubin, Urine Negative Ketones, Urine Negative Urobilinogen, Urine Normal Blood, Urine Negative Volume, Urine 12 mL RBC, Urine Negative WBC, Urine 0-2 Squamous Epithelial, Urine 3-5 Bacteria, Urine Moderate (*) Mucus, Urine Few SPECIFIC GRAVITY OF URINE (NUMERIC) 1.024 VAGINITIS PANEL MVP PCR COMPLETE URINALYSIS WITH REFLEX TO CULTURE Narrative: The following orders were created for panel order Urinalysis complete with reflex to Culture. Procedure Abnormality Status --------- ------ Complete Urinalysis[[id number]] Abnormal Final result Please view results for these tests on the individual orders. HCG QUALITATIVE URINE HCG,URINE QUAL Positive Narrative: is the most common reason for HCG in urine, although choriocarcinoma, hydatidiform mole, and certain nontrophoblastic malignancies also result in detectable urinary HCG levels. Sensitivity = 20mIU/mL. HCG QUANTITATIVE BLOOD HCG QUANTITATIVE 17,685.3 Narrative: Values in should double every 2 to 3 days for the first 6 weeks. Elevated concentrations of human chorionic gonadotropin (hCG) measured in the first trimester of are observed in normal , but may serve as an indication of chorionic carcinoma, hydatiform mole, or multiple . Decreasing hCG concentrations indicate threatened or missed , recent termination of , ectopic , gestosis or intrauterine . Mel- and postmenopausal females may have detectable hCG concentrations (< or = to 14 mIU/mL) due to pituitary production of hCG. Serum follicle-stimulating hormone measurement may aid in ruling-out in this population. Cutoffs of greater than 20 to 45 mIU/mL have been suggested and are method dependent. False-elevations (called phantom human chorionic gonadotropin: hCG) may occur with patients who have human antianimal or heterophilic antibodies. Some specimens may not dilute linearly due to abnormal forms of hCG. Elevated hCG concentrations not associated with are found in patients with other diseases such as tumors of the germ cells, ovaries, bladder, pancreas, stomach, lungs, and liver. This test is not intended to detect or monitor tumors or gestational trophoblastic disease. All other labs were within normal range or not returned as of this dictation. EMERGENCY DEPARTMENT COURSE and DIFFERENTIAL DIAGNOSIS/MDM: Vitals: Vitals: 06/14/24 0122 BP: 114/70 BP Location: Right arm Patient Position: Sitting Pulse: 94 Resp: 16 Temp: 36.4 C (97.5 F) TempSrc: Temporal SpO2: 100% Weight: 48.1 kg (106 lb) Height: 1.651 m (5' 5) Diagnoses as of 06/14/24 0348 Pyelonephritis affecting , antepartum The patient presented with chief complaint of dizziness, vaginal itching. The differential diagnosis associated with this patient's presentation includes anemia versus electrolyte abnormalities versus hypoglycemia versus UTI versus yeast infection versus . Our workup consisted of ordering/reviewing: Labs. Labs notable for anemia with hemoglobin of 10.5, no prior for comparison. Patient's urine test was positive so blood test was ordered to confirm. Patient was given a liter of fluids. Beta quant was elevated at 17,695. There is no acute electrolyte abnormalities or MAYO. Urinalysis concerning for infection with moderate bacteria and 25 leukocyte esterases. Patient was given 1 g Rocephin. Given CVA tenderness right greater than left there is concern for pyelonephritis.. I discussed their care with [facility] [employer] [facility] [employer] CONSULTANT, recommended ED to ED transfer for transvaginal ultrasound to confirm . Given the pyelonephritis, would likely be a medical admit with OB consult.. The patient will be Transferred. Patient is in agreement with this plan. Medications sodium chloride 0.9 % bolus 1,000 mL (0 mL IntraVENous Stopped 06/14/24 0310) cefTRIAXone (Rocephin) 1 g in sodium chloride 0.9 % 50 mL IVPB Mini-Bag Plus (0 g IntraVENous Stopped 06/14/24 0309) REVAL: CRITICAL CARE TIME None CONSULTS: None PROCEDURES: Unless otherwise noted below, none Procedures Patients symptoms are consistent with sepsis, severe sepsis, or septic shock (If yes use .sepsiscoremeasure): FINAL IMPRESSION 1. Pyelonephritis affecting , antepartum DISPOSITION Transfer To [facility] 06/14/2024 03:42:53 AM PATIENT REFERRED TO: [facility] EMERGENCY DEPT [address] [place] [phone] Go today DISCHARGE MEDICATIONS: Current Discharge Medication List (Comment: Please note this report has been produced using speech recognition software and may contain errors related to that system including errors in grammar, punctuation, and spelling, as well as words and phrases that may be inappropriate. If there are any questions or concerns please feel free to contact the dictating provider for clarification.) Zahira Graham DO (electronically signed) Emergency Medicine Provider Zahira Graham DO 06/14/24 0349 [facility] 06-14-2024 Physician Emergency department Note EMERGENCY DEPARTMENT ENCOUNTER Pt Name: Sumit Green Birthdate 2005 Date of evaluation: 06/14/2024 ED Provider: Abiodun Whitman DO CHIEF COMPLAINT Chief Complaint Patient presents with Dizziness Vaginal Itching HISTORY OF PRESENT ILLNESS (Location/Symptom, Timing/Onset, Context/Setting, Quality, Duration, Modifying Factors, Severity) Note limiting factors. I wore appropriate PPE for the entirety of this encounter. HPI Sumit Green is a 18 y.o. female who presents to the emergency department from OSH with concerns for pyelonephritis in . Went to OSH for syncope x 2 last night. Found to have UA concerning for possible UTI. Urine and serum bHCG positive. Discussed with OB who recommended transfer for pelvic US. Given CFTX prior to transfer. Patient reports suprapubic and LLQ abdominal pain. Also with right sided flank pain. Reports nausea but no vomiting. Denies SOB, chest pain, palpitations, vaginal bleeding, and diarrhea. Nursing Notes were reviewed. Limitations to history: None Outside historians: OSH REVIEW OF SYSTEMS Review of Systems As noted in HPI PAST MEDICAL HISTORY History reviewed. No pertinent past medical history. SURGICAL HISTORY History reviewed. No pertinent surgical history. CURRENT MEDICATIONS Current Discharge Medication List CONTINUE these medications which have NOT CHANGED Details albuterol 108 (90 Base) MCG/ACT inhaler Inhale 2 puffs every 4 hours as needed for wheezing. Qty: 18 g, Refills: 0 ALLERGIES Patient has no known allergies. FAMILY HISTORY No family history on file. SOCIAL HISTORY Social History Socioeconomic History Marital status: Single Tobacco Use Smoking status: Never Smokeless tobacco: Never Vaping Use Vaping status: Every Day Substance and Sexual Activity Alcohol use: Never Drug use: Never SCREENINGS El Coma Scale Best Eye Response: Spontaneous Best Verbal Response: Oriented Best Motor Response: Follows commands [place] Coma Scale Score: 15 PHYSICAL EXAM ED Triage Vitals [06/14/24 0122] Temp Heart Rate Resp BP 36.4 C (97.5 F) 94 16 114/70 SpO2 Temp Source Heart Rate Source Patient Position 100 % Temporal Monitor Sitting BP Location FiO2 (%) Right arm -- Physical Exam Vitals and nursing note reviewed. Constitutional: General: She is not in acute distress. Appearance: She is normal weight. She is not toxic-appearing. HENT: Head: Normocephalic and atraumatic. Right Ear: External ear normal. Left Ear: External ear normal. Nose: Nose normal. Mouth/Throat: Mouth: Mucous membranes are moist. Pharynx: Oropharynx is clear. Eyes: Extraocular Movements: Extraocular movements intact. Conjunctiva/sclera: Conjunctivae normal. Pupils: Pupils are equal, round, and reactive to light. Cardiovascular: Rate and Rhythm: Normal rate and regular rhythm. Pulses: Normal pulses. Heart sounds: Normal heart sounds. Pulmonary: Effort: Pulmonary effort is normal. Breath sounds: Normal breath sounds. Abdominal: General: Abdomen is flat. There is no distension. Palpations: Abdomen is soft. Tenderness: There is abdominal tenderness (suprapubic and LLQ). There is right CVA tenderness. There is no left CVA tenderness or guarding. Musculoskeletal: General: Normal range of motion. Cervical back: Normal range of motion and neck supple. Skin: General: Skin is warm and dry. Capillary Refill: Capillary refill takes less than 2 seconds. Neurological: General: No focal deficit present. Mental Status: She is alert. DIAGNOSTIC RESULTS Procedures/EKG: EKG was reviewed by myself. Physician EKG interpretation can be found in [facility] RADIOLOGY (Per Emergency Physician): Interpretation per the Radiologist below, if available at the time of this note: US pelvis transvaginal Final Result Probable intrauterine gestational sac at proximal 6 weeks, 1 day gestational age. No pole is visualized. 1.8 cm subchorionic hemorrhage. Ectopic is not entirely excluded and follow-up beta-hCG and pelvic ultrasound are suggested. Report Dictated on Electronically Signed By: Suhail Card DO Electronically Signed Date/Time: 06/14/2024 6:45 AM EST ED BEDSIDE ULTRASOUND: Performed by ED Physician - none LABS: Labs Reviewed VAGINITIS PANEL MVP PCR - Abnormal Result Value Bacterial Vaginosis Not Detected Nicki spp Detected (*) Nicki glabrata/krusei Not Detected Trichomonas Vaginalis Not Detected Narrative: Methodology: real-time PCR A negative result does not preclude a possible infection. This assay can detect the Nicki species C. albicans, C. tropicalis, C. parapsilosis, and C. dubliniensis but does not differentiate among them. The assay also detects C. glabrata and C. krusei, but does not differentiate between them. Results should be interpreted in conjunction with other clinical data. This test has not been validated for use with specimens collected by patients at home. This test is intended for medical purposes only and is not valid for the evaluation of suspected sexual abuse or for other forensic purposes. BASIC METABOLIC PANEL - Abnormal SODIUM 135 (*) POTASSIUM 4.0 CHLORIDE 106 CARBON DIOXIDE 22 UREA NITROGEN 10 CREATININE 0.73 GLUCOSE 110 (*) CALCIUM 8.8 ANION GAP 7 eGFR >90.0 CBC (HEMOGRAM) - Abnormal Auto WBC 5.6 RBC 3.97 Hemoglobin 10.5 (*) Hematocrit 30.8 (*) MCV 77.6 MCH 26.4 MCHC 34.1 RDW 14.1 Platelets 290 MPV 8.5 (*) COMPLETE URINALYSIS - Abnormal Color, Urine Yellow Clarity, Urine Clear pH, Urine 6.0 Leukocytes, Urine 25 (*) Nitrite, Urine Negative Protein, Urine 20 (*) Glucose, Urine Normal Bilirubin, Urine Negative Ketones, Urine Negative Urobilinogen, Urine Normal Blood, Urine Negative Volume, Urine 12 mL RBC, Urine Negative WBC, Urine 0-2 Squamous Epithelial, Urine 3-5 Bacteria, Urine Moderate (*) Mucus, Urine Few SPECIFIC GRAVITY OF URINE (NUMERIC) 1.024 COMPLETE URINALYSIS WITH REFLEX TO CULTURE Narrative: The following orders were created for panel order Urinalysis complete with reflex to Culture. Procedure Abnormality Status --------- ------ Complete Urinalysis[[id number]] Abnormal Final result Please view results for these tests on the individual orders. HCG QUALITATIVE URINE HCG,URINE QUAL Positive Narrative: is the most common reason for HCG in urine, although choriocarcinoma, hydatidiform mole, and certain nontrophoblastic malignancies also result in detectable urinary HCG levels. Sensitivity = 20mIU/mL. HCG QUANTITATIVE BLOOD HCG QUANTITATIVE 17,685.3 Narrative: Values in should double every 2 to 3 days for the first 6 weeks. Elevated concentrations of human chorionic gonadotropin (hCG) measured in the first trimester of are observed in normal , but may serve as an indication of chorionic carcinoma, hydatiform mole, or multiple . Decreasing hCG concentrations indicate threatened or missed , recent termination of , ectopic , gestosis or intrauterine . Mel- and postmenopausal females may have detectable hCG concentrations (< or = to 14 mIU/mL) due to pituitary production of hCG. Serum follicle-stimulating hormone measurement may aid in ruling-out in this population. Cutoffs of greater than 20 to 45 mIU/mL have been suggested and are method dependent. False-elevations (called phantom human chorionic gonadotropin: hCG) may occur with patients who have human antianimal or heterophilic antibodies. Some specimens may not dilute linearly due to abnormal forms of hCG. Elevated hCG concentrations not associated with are found in patients with other diseases such as tumors of the germ cells, ovaries, bladder, pancreas, stomach, lungs, and liver. This test is not intended to detect or monitor tumors or gestational trophoblastic disease. All other labs were within normal range or not returned as of this dictation. EMERGENCY DEPARTMENT COURSE and DIFFERENTIAL DIAGNOSIS/MDM: Vitals: Vitals: 06/14/24 0122 06/14/24 0406 06/14/24 0505 BP: 114/70 116/72 105/68 BP Location: Right arm Patient Position: Sitting Pulse: 94 82 90 Resp: 16 16 17 Temp: 36.4 C (97.5 F) 36.7 C (98.1 F) TempSrc: Temporal Temporal SpO2: 100% 99% 98% Weight: 48.1 kg (106 lb) Height: 1.651 m (5' 5) 18yo F presenting from OSH with concerns for + test with concurrent pyelonephritis. Well-appearing and well-hydrated on exam. Review of outside labs with UA showing moderate bacteria and 25 leuks. No leukocytosis. Received abx for pyelonephritis. Quant HCG of 17,685. Also vaginal swab + for nicki. On my exam continues to have ongoing abdominal pain and CVA tenderness. Pelvic US performed showing most likely intrauterine ~ 6 weeks as well as a 1.8 cm subchorionic hemorrhage without full ability to exclude ectopic . 7:52 AM Discussed with OB. Awaiting recommendations. 9:00 AM Admit to AR for IV antibiotics. OB consult on the floor. Medications sodium chloride 0.9 % bolus 1,000 mL (0 mL IntraVENous Stopped 06/14/24 0310) cefTRIAXone (Rocephin) 1 g in sodium chloride 0.9 % 50 mL IVPB Mini-Bag Plus (0 g IntraVENous Stopped 06/14/24 6808) CONSULTS: None PROCEDURES: Unless otherwise noted below, none Procedures Patients symptoms are consistent with sepsis, severe sepsis, or septic shock (If yes use .sepsiscoremeasure): No FINAL IMPRESSION 1. Pyelonephritis affecting , antepartum DISPOSITION Transfer To [facility] Ed 06/14/2024 03:42:53 AM PATIENT REFERRED TO: [facility] EMERGENCY DEPT [address] [place], [place] [id number] Go today DISCHARGE MEDICATIONS: Current Discharge Medication List (Comment: Please note this report has been produced using speech recognition software and may contain errors related to that system including errors in grammar, punctuation, and spelling, as well as words and phrases that may be inappropriate. If there are any questions or concerns please feel free to contact the dictating provider for clarification.) Abiodun Whitman DO (electronically signed) Emergency Medicine Provider Abiodun Whitman DO Resident 06/14/24 0927 Cosigned by Omar Dupree MD at 06/14/2024 1:15 PM EST [employer] Phone: 06-14-2024 Physician Emergency department Note Emergency Department Encounter [facility] EMERGENCY DEPT Patient: Sumit Green : 2005 Date of Evaluation: 06/14/2024 ED Supervising Physician: Omar Dupree MD I independently examined and evaluated Sumit Green. This will serve as my Supervisory note and shared attestation. I did perform a substantive portion of the visit including all aspects of the Medical Decision Making. I wore appropriate PPE for the entirety of this encounter. In brief, Sumit Green is a 18 y.o. that presents to the emergency department as a transfer from [facility] for suspected pyelonephritis. Brief ED course/MDM: Patient evaluated here by [facility]. Recommend admission to medicine and continued antibiotics. Admitted to [facility]. Diagnoses as of 06/14/24 0717 Pyelonephritis affecting , antepartum I personally saw the patient and made/approved the management plan and take responsibility for the patient management. All diagnostic, treatment, and disposition decisions were made by myself in conjunction with the resident. For all further details of the patient's emergency department visit, please see their documentation. (Comment: Please note this report has been produced using speech recognition software and may contain errors related to that system including errors in grammar, punctuation, and spelling, as well as words and phrases that may be inappropriate. If there are any questions or concerns please feel free to contact the dictating provider for clarification.) Omar Dupree MD [employer] Omar Dupree MD 06/14/24 0858 [employer] Phone: 05-27-2024 Emergency department Note [facility] ED EMERGENCY DEPARTMENT ENCOUNTER Pt Name: Sumit Green Birthdate 2005 Date of evaluation: 05/27/2024 Provider: Mikal Woodson MD CHIEF COMPLAINT Chief Complaint Patient presents with Flu Symptoms HISTORY OF PRESENT ILLNESS (Location/Symptom, Timing/Onset,Context/Setting, Quality, Duration, Modifying Factors, Severity) Note limiting factors. Sumit Green is a 18 y.o. female who presents to the emergency department with multiple complaints. Reports past few days she has had cough congestion but she also reports she is still having dysuria she was has been having intermittent abdominal pain and dysuria since March. She said she was seen on 06 May diagnosed with UTI she was sent home on antibiotics but says she still has symptoms. She does smoke. She reports no dyspnea with exertion. She has had sore throat generalized malaise. The generalized malaise sore throat because been going on greater than 3 days. HPI Historian is the patient Nurse's notes for past medical history, surgical history, social history were reviewed. Medications and allergies reviewed. PAST MEDICAL HISTORY History reviewed. No pertinent past medical history. SURGICALHISTORY History reviewed. No pertinent surgical history. CURRENT MEDICATIONS Previous Medications No medications on file Patient has no known allergies. FAMILY HISTORY No family history on file. SOCIAL HISTORY Social History Socioeconomic History Marital status: Single Tobacco Use Smoking status: Never Smokeless tobacco: Never Vaping Use Vaping status: Every Day Substance and Sexual Activity Alcohol use: Never Drug use: Never SCREENINGS PHYSICAL EXAM (up to 7 for level 4, 8 or more for level 5) @EDTRIAGEVSS@ Appropriate PPE including n 95, gown, gloves, goggles where worn when appropriate with this patient. Physical Exam Vital signs reviewed general: Alert and oriented 3 head: Atraumatic eyes: Equal round reactive to light and accommodating, pupils are equal, round and reactive to light and accommodation oropharynx: Clear and well hydrated neck: Supple heart: Regular rate and rhythm, no murmurs lungs: Clear to auscultation bilaterally, good air exchange abdomen: Soft nontender, positive bowel sounds, no peritoneal findings. No rebound or guarding Extremities: Moving all fours, no tenderness. Normal capillary refill. Skin: No rash or lesions -to the exposed skin neurologically: Alert and oriented 3, no focal deficit DIAGNOSTIC RESULTS RADIOLOGY: Interpretation per the Radiologist below, if availableat the time of this note: XR chest 2 views Final Result No acute cardiopulmonary abnormality identified. Report Dictated on Electronically Signed By: Travis Harris MD Electronically Signed Date/Time: 05/27/2024 10:33 AM EST ED BEDSIDE ULTRASOUND: Performed by ED Physician - none LABS: Labs Reviewed COMPLETE URINALYSIS - Abnormal Result Value Color, Urine Yellow Clarity, Urine Turbid (*) pH, Urine 5.5 Leukocytes, Urine Negative Nitrite, Urine Negative Protein, Urine Negative Glucose, Urine Normal Bilirubin, Urine Negative Ketones, Urine Negative Urobilinogen, Urine Normal Blood, Urine Negative Volume, Urine 12 mL RBC, Urine 0-2 WBC, Urine 0-2 Squamous Epithelial, Urine 6-10 (*) Bacteria, Urine Many (*) SPECIFIC GRAVITY OF URINE (NUMERIC) 1.022 URINE CULTURE, ORDERABLE Narrative: The following orders were created for panel order Urine culture. Procedure Abnormality Status --------- ------ Urine culture[[id number]] Urine Hold Cup[[id number]] Please view results for these tests on the individual orders. URINE CULTURE COMPLETE URINALYSIS WITH REFLEX TO CULTURE Narrative: The following orders were created for panel order Urinalysis complete with reflex to Culture. Procedure Abnormality Status --------- ------ Complete Urinalysis[[id number]] Abnormal Final result Please view results for these tests on the individual orders. HCG QUALITATIVE URINE HCG,URINE QUAL Negative Narrative: is the most common reason for HCG in urine, although choriocarcinoma, hydatidiform mole, and certain nontrophoblastic malignancies also result in detectable urinary HCG levels. Sensitivity = 20mIU/mL. URINE HOLD CUP All other labs were within normal range or not returned as of thisdictation. EMERGENCYDEPARTMENT COURSE and DIFFERENTIAL DIAGNOSIS/MDM: Vitals: Vitals: 05/27/24 0956 BP: 116/71 BP Location: Right arm Patient Position: Lying Pulse: 73 Resp: 14 Temp: 36.3 C (97.3 F) TempSrc: Oral SpO2: 98% Weight: 48.1 kg (106 lb) Height: 1.702 m (5' 7) Medical Decision Making Problems Addressed: Acute cough: complicated acute illness or injury Dysuria: complicated acute illness or injury Amount and/or Complexity of Data Reviewed Labs: ordered. Radiology: ordered. Risk Prescription drug management. EMERGENCY DEPARTMENT COURSE and DIFFERENTIAL DIAGNOSIS/MDM: Vitals: Vitals: 05/27/24 0956 BP: 116/71 BP Location: Right arm Patient Position: Lying Pulse: 73 Resp: 14 Temp: 36.3 C (97.3 F) TempSrc: Oral SpO2: 98% Weight: 48.1 kg (106 lb) Height: 1.702 m (5' 7) The patient presented with a chief complaint of dysuria flank pain cough. The differential diagnosis associated with this patient's presentation includes kidney stone UTI pyelonephritis pneumonia bronchitis cough viral illness . Our workup consisted of ordering/reviewing urine urine and chest x-ray. Clinically I do not believe blood work is needed. I do not believe this is kidney stone. I do want to make sure she does not have pneumonia. Will check to make sure she does not have a UTI. If her chest x-ray and urine is negative anticipate should go home on inhaler and steroids. She is out of the window for treatment for influenza. She is not toxic. ED Course as of 05/27/24 1102 Sun May 27, 2024 1102 Shows contamination bacteria no signs of infection otherwise. Urine sent for culture. hCG is negative. I do not believe blood work is needed do not believe antibiotics are needed. She is nontoxic. I believe she needs to try to decrease smoking. Will treat with prednisone Tessalon Perles and albuterol inhaler. Off work tonight. [GS] ED Course User Index [GS] Mikal Woodson MD Diagnoses as of 05/27/24 1102 Acute cough Dysuria Diagnostics considered but not indicated based on history, physical, testing: CT blood work however not clinically indicated External records reviewed: Testing reviewed from visit on 05/06/2024. Otherwise she has had visits in 2023 with [facility]. Radiologic diagnostics interpreted by me: film images such as CT, Ultrasound and MRI are read by the radiologist. Plain radiographic images are visualized and preliminarily interpreted by the emergency physician with the below findings: Xray(s) chest x-ray per my interpretation no acute process. Discussions with other clinicians: none Chronic conditions impacting care: none Social determinants of health affecting care: Patient smokes Shared decision making: Patient agrees to treatment plan ED Medications managed: Medications - No data to display Prescription drugs prescribed: Albuterol, Tessalon Perles, prednisone PROCEDURES: Unless otherwise noted below, none Procedures IMPRESSION 1. Acute cough 2. Dysuria DISPOSITION/PLAN DISPOSITION Discharge 05/27/2024 11:00:20 AM PATIENT REFERRED TO: [place] [id number] In 1 week DISCHARGE MEDICATIONS: New Prescriptions ALBUTEROL 108 (90 BASE) MCG/ACT INHALER Inhale 2 puffs every 4 hours as needed for wheezing. BENZONATATE (TESSALON) 200 MG CAPSULE Take 1 capsule (200 mg) by mouth every 8 hours for 7 days. Do not crush or chew. PREDNISONE (DELTASONE) 20 MG TABLET Take 2 tablets (40 mg) by mouth daily for 5 days. @[id number]:LAST:1)@ (Comment: Please notethis report has been produced using speech recognition software and may contain errors related to that system including errors in grammar, punctuation, and spelling, as well as words and phrases that may be inappropriate.If there is any questions or concerns please feel free to contact the dictating provider for clarification). Mikal Woodson MD (electronically signed) Attending Emergency Physician Mikal Woodson MD 05/27/24 110 Pt ambulatory to room 6 with c/o flu like symptoms x 2 days with cough, sore throat, congestion . Pt reports having sweats last night that improved after shower. Pt reports having anterior left rib pain x 1 week. documented in this encounter [facility] 05-27-2024 Emergency department Triage note Pt ambulatory to room 6 with c/o flu like symptoms x 2 days with cough, sore throat, congestion . Pt reports having sweats last night that improved after shower. Pt reports having anterior left rib pain x 1 week. [facility] 05-27-2024 Physician Emergency department Note [facility] ED EMERGENCY DEPARTMENT ENCOUNTER Pt Name: Sumit Green Birthdate 2005 Date of evaluation: 05/27/2024 Provider: Mikal Woodson MD CHIEF COMPLAINT Chief Complaint Patient presents with Flu Symptoms HISTORY OF PRESENT ILLNESS (Location/Symptom, Timing/Onset,Context/Setting, Quality, Duration, Modifying Factors, Severity) Note limiting factors. Sumit Green is a 18 y.o. female who presents to the emergency department with multiple complaints. Reports past few days she has had cough congestion but she also reports she is still having dysuria she was has been having intermittent abdominal pain and dysuria since March. She said she was seen on 06 May diagnosed with UTI she was sent home on antibiotics but says she still has symptoms. She does smoke. She reports no dyspnea with exertion. She has had sore throat generalized malaise. The generalized malaise sore throat because been going on greater than 3 days. HPI Historian is the patient Nurse's notes for past medical history, surgical history, social history were reviewed. Medications and allergies reviewed. PAST MEDICAL HISTORY History reviewed. No pertinent past medical history. SURGICALHISTORY History reviewed. No pertinent surgical history. CURRENT MEDICATIONS Previous Medications No medications on file Patient has no known allergies. FAMILY HISTORY No family history on file. SOCIAL HISTORY Social History Socioeconomic History Marital status: Single Tobacco Use Smoking status: Never Smokeless tobacco: Never Vaping Use Vaping status: Every Day Substance and Sexual Activity Alcohol use: Never Drug use: Never SCREENINGS PHYSICAL EXAM (up to 7 for level 4, 8 or more for level 5) @EDTRIAGEVSS@ Appropriate PPE including n 95, gown, gloves, goggles where worn when appropriate with this patient. Physical Exam Vital signs reviewed general: Alert and oriented 3 head: Atraumatic eyes: Equal round reactive to light and accommodating, pupils are equal, round and reactive to light and accommodation oropharynx: Clear and well hydrated neck: Supple heart: Regular rate and rhythm, no murmurs lungs: Clear to auscultation bilaterally, good air exchange abdomen: Soft nontender, positive bowel sounds, no peritoneal findings. No rebound or guarding Extremities: Moving all fours, no tenderness. Normal capillary refill. Skin: No rash or lesions -to the exposed skin neurologically: Alert and oriented 3, no focal deficit DIAGNOSTIC RESULTS RADIOLOGY: Interpretation per the Radiologist below, if availableat the time of this note: XR chest 2 views Final Result No acute cardiopulmonary abnormality identified. Report Dictated on Electronically Signed By: Travis Harris MD Electronically Signed Date/Time: 05/27/2024 10:33 AM EST ED BEDSIDE ULTRASOUND: Performed by ED Physician - none LABS: Labs Reviewed COMPLETE URINALYSIS - Abnormal Result Value Color, Urine Yellow Clarity, Urine Turbid (*) pH, Urine 5.5 Leukocytes, Urine Negative Nitrite, Urine Negative Protein, Urine Negative Glucose, Urine Normal Bilirubin, Urine Negative Ketones, Urine Negative Urobilinogen, Urine Normal Blood, Urine Negative Volume, Urine 12 mL RBC, Urine 0-2 WBC, Urine 0-2 Squamous Epithelial, Urine 6-10 (*) Bacteria, Urine Many (*) SPECIFIC GRAVITY OF URINE (NUMERIC) 1.022 URINE CULTURE, ORDERABLE Narrative: The following orders were created for panel order Urine culture. Procedure Abnormality Status --------- ------ Urine culture[[id number]] Urine Hold Cup[[id number]] Please view results for these tests on the individual orders. URINE CULTURE COMPLETE URINALYSIS WITH REFLEX TO CULTURE Narrative: The following orders were created for panel order Urinalysis complete with reflex to Culture. Procedure Abnormality Status --------- ------ Complete Urinalysis[[id number]] Abnormal Final result Please view results for these tests on the individual orders. HCG QUALITATIVE URINE HCG,URINE QUAL Negative Narrative: is the most common reason for HCG in urine, although choriocarcinoma, hydatidiform mole, and certain nontrophoblastic malignancies also result in detectable urinary HCG levels. Sensitivity = 20mIU/mL. URINE HOLD CUP All other labs were within normal range or not returned as of thisdictation. EMERGENCYDEPARTMENT COURSE and DIFFERENTIAL DIAGNOSIS/MDM: Vitals: Vitals: 05/27/24 0956 BP: 116/71 BP Location: Right arm Patient Position: Lying Pulse: 73 Resp: 14 Temp: 36.3 C (97.3 F) TempSrc: Oral SpO2: 98% Weight: 48.1 kg (106 lb) Height: 1.702 m (5' 7) Medical Decision Making Problems Addressed: Acute cough: complicated acute illness or injury Dysuria: complicated acute illness or injury Amount and/or Complexity of Data Reviewed Labs: ordered. Radiology: ordered. Risk Prescription drug management. EMERGENCY DEPARTMENT COURSE and DIFFERENTIAL DIAGNOSIS/MDM: Vitals: Vitals: 05/27/24 0956 BP: 116/71 BP Location: Right arm Patient Position: Lying Pulse: 73 Resp: 14 Temp: 36.3 C (97.3 F) TempSrc: Oral SpO2: 98% Weight: 48.1 kg (106 lb) Height: 1.702 m (5' 7) The patient presented with a chief complaint of dysuria flank pain cough. The differential diagnosis associated with this patient's presentation includes kidney stone UTI pyelonephritis pneumonia bronchitis cough viral illness . Our workup consisted of ordering/reviewing urine urine and chest x-ray. Clinically I do not believe blood work is needed. I do not believe this is kidney stone. I do want to make sure she does not have pneumonia. Will check to make sure she does not have a UTI. If her chest x-ray and urine is negative anticipate should go home on inhaler and steroids. She is out of the window for treatment for influenza. She is not toxic. ED Course as of 05/27/24 1102 Sun May 27, 2024 1102 Shows contamination bacteria no signs of infection otherwise. Urine sent for culture. hCG is negative. I do not believe blood work is needed do not believe antibiotics are needed. She is nontoxic. I believe she needs to try to decrease smoking. Will treat with prednisone Tessalon Perles and albuterol inhaler. Off work tonight. [GS] ED Course User Index [GS] Mikal Woodson MD Diagnoses as of 05/27/24 1102 Acute cough Dysuria Diagnostics considered but not indicated based on history, physical, testing: CT blood work however not clinically indicated External records reviewed: Testing reviewed from visit on 05/06/2024. Otherwise she has had visits in 2023 with [facility]. Radiologic diagnostics interpreted by me: film images such as CT, Ultrasound and MRI are read by the radiologist. Plain radiographic images are visualized and preliminarily interpreted by the emergency physician with the below findings: Xray(s) chest x-ray per my interpretation no acute process. Discussions with other clinicians: none Chronic conditions impacting care: none Social determinants of health affecting care: Patient smokes Shared decision making: Patient agrees to treatment plan ED Medications managed: Medications - No data to display Prescription drugs prescribed: Albuterol, Tessalon Perles, prednisone PROCEDURES: Unless otherwise noted below, none Procedures IMPRESSION 1. Acute cough 2. Dysuria DISPOSITION/PLAN DISPOSITION Discharge 05/27/2024 11:00:20 AM PATIENT REFERRED TO: [place] [id number] In 1 week DISCHARGE MEDICATIONS: New Prescriptions ALBUTEROL 108 (90 BASE) MCG/ACT INHALER Inhale 2 puffs every 4 hours as needed for wheezing. BENZONATATE (TESSALON) 200 MG CAPSULE Take 1 capsule (200 mg) by mouth every 8 hours for 7 days. Do not crush or chew. PREDNISONE (DELTASONE) 20 MG TABLET Take 2 tablets (40 mg) by mouth daily for 5 days. @[facility]([id number]:LAST:1)@ (Comment: Please notethis report has been produced using speech recognition software and may contain errors related to that system including errors in grammar, punctuation, and spelling, as well as words and phrases that may be inappropriate.If there is any questions or concerns please feel free to contact the dictating provider for clarification). Mikal Woodson MD (electronically signed) Attending Emergency Physician Mikal Woodson MD 05/27/24 1102 [facility] 05-06-2024 Hospital Discharg e instructions Ovi Delacruz MD - 05/06/2024 5:04 PM EST Extra strength Tylenol every 6 hours as needed for pain The following attachments cannot be sent through Care Everywhere.Acute Cystitis Discharge Instructions ([place])documented in this encounter [facility] 05-06-2024 Emergency department Note EMERGENCY DEPARTMENT ENCOUNTER Pt Name: Sumit Green Birthdate 2005 Date of evaluation: 05/06/2024 CHIEF COMPLAINT Chief Complaint Patient presents with Abdominal Pain Vaginal Bleeding HISTORY OF PRESENT ILLNESS HPI Sumit Green is a 18 y.o. female who presents to the emergency department Reporting lower abdominal pain and cramping. It is intermittent intravillous for approximately 45 minutes. No vomiting no diarrhea no constipation no difficulty, has some urinary hesitancy, no fever. No alcohol use recently. Anti-inflammatory use recently. Lmp 1` month go REVIEW OF SYSTEMS Review of Systems There is no problem list on file for this patient. CURRENT MEDICATIONS Previous Medications No medications on file ALLERGIES Patient has no known allergies. SOCIAL HISTORY Social History Tobacco Use Smoking status: Never Smokeless tobacco: Never Vaping Use Vaping status: Every Day Substance Use Topics Alcohol use: Never Drug use: Never PHYSICAL EXAM Vitals: 05/06/24 1450 BP: 115/68 BP Location: Right arm Patient Position: Sitting Pulse: 78 Resp: 16 Temp: 36.7 C (98 F) TempSrc: Oral SpO2: 100% Weight: 49.9 kg (110 lb) Height: 1.676 m (5' 6) Physical Exam Vitals and nursing note reviewed. Constitutional: Appearance: She is underweight. She is not toxic-appearing. Abdominal: General: Bowel sounds are normal. Palpations: Abdomen is soft. Tenderness: There is no right CVA tenderness, left CVA tenderness or guarding. Negative signs include Morgan's sign. Hernia: No hernia is present. Skin: General: Skin is warm. Coloration: Skin is not jaundiced. Neurological: Mental Status: She is alert. Psychiatric: Behavior: Behavior normal. SCREENINGS Medical decision making DIAGNOSTIC RESULTS Procedures/EKG: Physician EKG interpretation can be found in [facility] if done RADIOLOGY : Radiologist results reviewed: No orders to display LABS: Labs Reviewed COMPLETE URINALYSIS - Abnormal Result Value Color, Urine Yellow Clarity, Urine Clear pH, Urine 7.0 Leukocytes, Urine Negative Nitrite, Urine Negative Protein, Urine 20 (*) Glucose, Urine Normal Bilirubin, Urine Negative Ketones, Urine Negative Urobilinogen, Urine Normal Blood, Urine 0.5 (*) Volume, Urine 12 mL RBC, Urine 0-2 WBC, Urine 0-2 Squamous Epithelial, Urine 0-2 Bacteria, Urine Moderate (*) Mucus, Urine Few SPECIFIC GRAVITY OF URINE (NUMERIC) 1.029 COMPLETE URINALYSIS WITH REFLEX TO CULTURE Narrative: The following orders were created for panel order Urinalysis complete with reflex to Culture. Procedure Abnormality Status --------- ------ Complete Urinalysis[[id number]] Abnormal Final result Please view results for these tests on the individual orders. HCG QUALITATIVE URINE HCG,URINE QUAL Negative Narrative: is the most common reason for HCG in urine, although choriocarcinoma, hydatidiform mole, and certain nontrophoblastic malignancies also result in detectable urinary HCG levels. Sensitivity = 20mIU/mL. Medications ordered: Medications - No data to display Diagnoses as of 05/06/24 1708 Lower abdominal pain Acute cystitis with hematuria * No order type specified * Our workup consisted of ordering/reviewing: Orders Placed This Encounter Procedures Urinalysis complete with reflex to Culture hCG, urine, qualitative Complete Urinalysis [facility] MDM: 18 y.o. presented with abdominal pain. The differential diagnosis considered: UTI, . Unlikely appendicitis, no fever, . Also, There are no ketones in the urine. Unlikely, diverticulitis as no fever, age <35, . Unlikely, cholecystitis as no RUQ pain, no fever, no morgan's sign, .Unlikely, pancreatitis as no alcohol use in the last 4d. Unlikely, ovarian torsion as patient has no sudden onset of severe pelvic pain with vomiting. Unlikely, AAA as age is< 60, . Unlikely, bowel obstruction as no vomiting,had bowel movements in last 24 hours,, no prior multiple abdominal surgeries. the patient is stable for outpatient management: no Peritoneal signs present no Hemodynamic instability normal bowel sounds no complete ileus no Severe pain at dc. R I discussed with the patient that the workup for abdominal pain did not reveal any acute surgical issue or reason for admission. However I emphasized that they may be early in the course of a disease process and it might be too early to find a surgical process even if it is present. For this reason I advised the patient to follow up for re-evaluation either with their physician or if necessary back here in the ED. I also stressed that they are to return immediately if their symptoms worsen. Patient expressed that they understood and will follow these recommendations. Diagnostic tests considered but not performed: ct abdomen and pelvis. No peritoneal signs on exam. Consideration for escalation of care with: diagnostics us pelvis, however, it is not available hence not ordered . REVAL: CRITICAL CARE TIME PROCEDURES: Procedures FINAL IMPRESSION 1. Lower abdominal pain 2. Acute cystitis with hematuria DISPOSITION/PLAN DISPOSITION Discharge 05/06/2024 05:03:48 PM PATIENT REFERRED TO: [place] [id number] I prescribed: New Prescriptions CEPHALEXIN (KEFLEX) 500 MG CAPSULE Take 1 capsule (500 mg) by mouth 4 times daily for 3 days. (Comment: this report has been produced using speech recognition software and may contain errors related to that system including errors in grammar, punctuation, and spelling, as well as words and phrases that may be inappropriate) Ovi Delacruz MD (electronically signed) Ovi Delacruz MD 05/06/24 1708 documented in this encounter [facility] 05-06-2024 Physician Emergency department Note EMERGENCY DEPARTMENT ENCOUNTER Pt Name: Sumit Green Birthdate 2005 Date of evaluation: 05/06/2024 CHIEF COMPLAINT Chief Complaint Patient presents with Abdominal Pain Vaginal Bleeding HISTORY OF PRESENT ILLNESS HPI Sumit Green is a 18 y.o. female who presents to the emergency department Reporting lower abdominal pain and cramping. It is intermittent intravillous for approximately 45 minutes. No vomiting no diarrhea no constipation no difficulty, has some urinary hesitancy, no fever. No alcohol use recently. Anti-inflammatory use recently. Lmp 1` month go REVIEW OF SYSTEMS Review of Systems There is no problem list on file for this patient. CURRENT MEDICATIONS Previous Medications No medications on file ALLERGIES Patient has no known allergies. SOCIAL HISTORY Social History Tobacco Use Smoking status: Never Smokeless tobacco: Never Vaping Use Vaping status: Every Day Substance Use Topics Alcohol use: Never Drug use: Never PHYSICAL EXAM Vitals: 05/06/24 1450 BP: 115/68 BP Location: Right arm Patient Position: Sitting Pulse: 78 Resp: 16 Temp: 36.7 C (98 F) TempSrc: Oral SpO2: 100% Weight: 49.9 kg (110 lb) Height: 1.676 m (5' 6) Physical Exam Vitals and nursing note reviewed. Constitutional: Appearance: She is underweight. She is not toxic-appearing. Abdominal: General: Bowel sounds are normal. Palpations: Abdomen is soft. Tenderness: There is no right CVA tenderness, left CVA tenderness or guarding. Negative signs include Morgan's sign. Hernia: No hernia is present. Skin: General: Skin is warm. Coloration: Skin is not jaundiced. Neurological: Mental Status: She is alert. Psychiatric: Behavior: Behavior normal. SCREENINGS Medical decision making DIAGNOSTIC RESULTS Procedures/EKG: Physician EKG interpretation can be found in [facility] if done RADIOLOGY : Radiologist results reviewed: No orders to display LABS: Labs Reviewed COMPLETE URINALYSIS - Abnormal Result Value Color, Urine Yellow Clarity, Urine Clear pH, Urine 7.0 Leukocytes, Urine Negative Nitrite, Urine Negative Protein, Urine 20 (*) Glucose, Urine Normal Bilirubin, Urine Negative Ketones, Urine Negative Urobilinogen, Urine Normal Blood, Urine 0.5 (*) Volume, Urine 12 mL RBC, Urine 0-2 WBC, Urine 0-2 Squamous Epithelial, Urine 0-2 Bacteria, Urine Moderate (*) Mucus, Urine Few SPECIFIC GRAVITY OF URINE (NUMERIC) 1.029 COMPLETE URINALYSIS WITH REFLEX TO CULTURE Narrative: The following orders were created for panel order Urinalysis complete with reflex to Culture. Procedure Abnormality Status --------- ------ Complete Urinalysis[[id number]] Abnormal Final result Please view results for these tests on the individual orders. HCG QUALITATIVE URINE HCG,URINE QUAL Negative Narrative: is the most common reason for HCG in urine, although choriocarcinoma, hydatidiform mole, and certain nontrophoblastic malignancies also result in detectable urinary HCG levels. Sensitivity = 20mIU/mL. Medications ordered: Medications - No data to display Diagnoses as of 05/06/24 1708 Lower abdominal pain Acute cystitis with hematuria * No order type specified * Our workup consisted of ordering/reviewing: Orders Placed This Encounter Procedures Urinalysis complete with reflex to Culture hCG, urine, qualitative Complete Urinalysis [facility] MDM: 18 y.o. presented with abdominal pain. The differential diagnosis considered: UTI, . Unlikely appendicitis, no fever, . Also, There are no ketones in the urine. Unlikely, diverticulitis as no fever, age <35, . Unlikely, cholecystitis as no RUQ pain, no fever, no morgan's sign, .Unlikely, pancreatitis as no alcohol use in the last 4d. Unlikely, ovarian torsion as patient has no sudden onset of severe pelvic pain with vomiting. Unlikely, AAA as age is< 60, . Unlikely, bowel obstruction as no vomiting,had bowel movements in last 24 hours,, no prior multiple abdominal surgeries. the patient is stable for outpatient management: no Peritoneal signs present no Hemodynamic instability normal bowel sounds no complete ileus no Severe pain at dc. R I discussed with the patient that the workup for abdominal pain did not reveal any acute surgical issue or reason for admission. However I emphasized that they may be early in the course of a disease process and it might be too early to find a surgical process even if it is present. For this reason I advised the patient to follow up for re-evaluation either with their physician or if necessary back here in the ED. I also stressed that they are to return immediately if their symptoms worsen. Patient expressed that they understood and will follow these recommendations. Diagnostic tests considered but not performed: ct abdomen and pelvis. No peritoneal signs on exam. Consideration for escalation of care with: diagnostics us pelvis, however, it is not available hence not ordered . REVAL: CRITICAL CARE TIME PROCEDURES: Procedures FINAL IMPRESSION 1. Lower abdominal pain 2. Acute cystitis with hematuria DISPOSITION/PLAN DISPOSITION Discharge 05/06/2024 05:03:48 PM PATIENT REFERRED TO: [address] [facility] [id number] I prescribed: New Prescriptions CEPHALEXIN (KEFLEX) 500 MG CAPSULE Take 1 capsule (500 mg) by mouth 4 times daily for 3 days. (Comment: this report has been produced using speech recognition software and may contain errors related to that system including errors in grammar, punctuation, and spelling, as well as words and phrases that may be inappropriate) Ovi Delacruz MD (electronically signed) Ovi Delacruz MD 05/06/24 1708 [facility] [place] 07-16-2023 Discharge summary Note Date/Time July 16, 2023 8:10pm [facility] Medical Records Department [address] [place] [address] Emergency Department Summary 07/16/23 MR#: [id number] Acct: [id number] Name: SUMIT GREEN Rep #:[id number] : 2005 17 From: Umer Messina MD PCP: Care Physician,No Primary Status :REG ER Location: ED HPI History of Present Illness Chief Complaint: Fatigue Detail of Chief Complaint: Fatigue, weight loss, diarrhea Informant: patient and spouse/S.O. Onset/Context/Timing Onset: Month(s) Context: Gradual Onset Timing: Continuous and Waxes and wanes Quality: Generalized fatigue, 20 pound weight loss since the fall 2022, chronic diar Location: Multiple Current Severity: Mild Maximum Severity: Moderate Worsened by: Nothing Relieved by: Nothing Associated Symptoms Associated Symptoms: Per HPI narrative Narrative Narrative: Patient is a 19-year-old female who is sexually active with women only. She states there is no concern for . She presents because of fatigue and generalized weakness that is been going on since the fall 2022. Since March 2023 she has had diarrhea. She has not told anyone. She has not noted any blood or mucus in her diarrhea. She does endorse weight loss. When asked how much significant other informed a 20 pound since summer 2022. Patient only weighs 46 kg. Prior similar symptoms: Yes Recent Illness/Hospitalization: No PFSH PFSH Medical History no medical history no medical history Allergy/AdvReac Type Severity Reaction Status Date / Time No Known Allergies Allergy Verified 07/16/23 19:02 Surgical History no surgical history no surgical history Social History (Updated 07/16/23 @ 20:[address] Umer Messina MD) household members: significant other Smoking Status: Never smoker ROS ROS ED Constitutional Constitutional ED: Reports weight loss; Denies chills, fever(s), subjective or sweats Eyes Eyes: Denies blurry vision, change in vision or diplopia ENT ENT ED: Reports rhinorrhea; Denies ear pain or sore throat Cardiovascular Cardiovascular: Denies chest pain, orthopnea, palpitations, paroxysmal nocturnaldyspnea or racing heartbeat Respiratory/Chest Respiratory/Chest: Denies cough, dyspnea, dyspnea on exertion, orthopnea or paroxysmal nocturnal dyspnea Gastrointestinal Gastrointestinal: Reports nausea; Denies constipation, diarrhea, melena or vomiting Genitourinary Genitourinary ED: Denies dysuria, hematuria or urinary frequency Musculoskeletal Musculoskeletal: Denies arthralgias, back pain, myalgias or neck pain Integumentary Denies rash Neurologic Neurologic: Reports weakness; Denies headache(s) or paresthesias Psychiatric Psychiatric: Denies anxiety or depression Endocrine Endocrinology: Denies cold intolerance or heat intolerance Hematologic/Lymphatic Hematologic/Lymphatic: Reports systems reviewed and no addt'l complaints, exceptas documented EXAM Physical Exam Const Vital Signs: 07/16/23 18:58 07/16/23 19:27 Temperature 97.6 F L Temperature Source Temporal Pulse Rate 77 Respiratory Rate 16 Respiratory Pattern Normal Blood Pressure 98/68 L Blood Pressure Mean 78 Pulse Ox 100 Oxygen Delivery Method Room Air Positive well nourished and well developed General Appearance ED: well developed, NAD and pallor; Negative for cyanotic or diaphoretic HEENT Reports dry mucous membranes HEENT Narrative: Head is atraumatic normocephalic. Ears normal. Nares patent. Posterior pharynx unremarkable. Mouth ED: Yes dry mucous membranes Mouth: dry mucous membranes Neck No no lymphadenopathy, supple and no JVD Neck Narrative: Patient has shotty anterior bilateral cervical lymphadenopathy Chest Wall inspection of chest normal and palpation of chest normal Resp normal respiratory effort and clear to auscultation bilaterally Cardio regular rate, regular rhythm, S1 normal heart sound and S2 normal heart sound GI normal to inspection, nondistended, normoactive bowel sounds, non-tender and hepatosplenomegaly; Negative for non-distended GI Narrative: Abdomen is tympanitic. Back/Spine no CVA tenderness Extremity normal to inspection Extremity Narrative: There is bilateral axillary lymphadenopathy as well as bilateral inguinal lymphadenopathy Neuro oriented x3, CN's II-XII intact bilaterally and no sensory deficits noted Sensorium / Orientation: alert Psych mental status grossly normal Skin no rashes or lesions noted, no wounds and skin turgor normal General Skin Exam: elasticity normal and pallor; Negative for jaundice MDM MDM MDM Narrative Medical decision making narrative: Differential diagnosis would include viral illness, malignancy, autoimmune disorder with her being different respiratory like symptoms will also rule out COVID influenza. She has had COVID in the past. She has not been in the ER forapproximately 1 year. CBC was to evaluate for anemia as well as differential. Competence metabolic panel to assess calcium, alkaline phosphatase and liver enzymes. Monospot was obtained and she has been fatigued for the past 2 months. History & Record Review Additional record(s) reviewed:: Prior ED visit (Patient was seen for syncope November 2022 and seen for diarrhea September 2022) and Prior labs Lab Data Attestation: I reviewed the patient's lab results. Lab results narrative: CBC is remarkable for microcytic anemia. There is no change since prior CBC. Comprehensive metabolic panel is normal. Monospot negative. Sed rate normal. Labs: Laboratory Results - last 24 hr 07/16/23 19:50 WBC 4.6 RBC 4.52 Hgb 11.2 L Hct 35.1 L MCV 77.7 L MCH 24.8 L MCHC 31.9 L RDW Std Deviation 41.9 RDW Coeff of Nubia 15.2 H Plt Count 212 MPV 9.2 Immature Gran % (Auto) 0.200 Neut % (Auto) 50.2 Lymph % (Auto) 36.4 [place] % (Auto) 9.5 H Eos % (Auto) 2.6 Baso % (Auto) 1.1 H Absolute Neuts (auto) 2.3 Absolute Lymphs (auto) 1.69 Nucleated RBC % 0 ESR 4 Sodium 141 Potassium 3.5 Chloride 109 H Carbon Dioxide 26.0 Anion Gap 6 BUN 9 Creatinine 0.68 Estim Creat Clear Calc 98.36 Est GFR (MDRD) Af Amer 144 Est GFR (MDRD) Non-Af 119 BUN/Creatinine Ratio 13.2 Glucose 90 Calcium 8.9 Total Bilirubin 0.20 AST 14 L ALT 13 Alkaline Phosphatase 64 Total Protein 7.4 Albumin 4.1 Globulin 3.3 Albumin/Globulin Ratio 1.2 Monoscreen Negative Discharge Plan Triage Chief Complaint: Fatigue ED Provider: Umer Messina Dx/Rx/DC Orders Clinical Impression: Fatigue, Unintentional weight loss of 10% body weight within 6 months, Microcytic anemia, Chronic diarrhea Instructions: ED Weakness (Uncertain Cause) Primary Care Provider: Care Physician,No Primary Referrals: Ravi Maloney DO [Med Staff - Active Staff] - 1-2 Weeks Care Physician,No Primary [Primary Care Provider] - Activity Restrictions/Additional Instructions: The name of your primary care doctor is located on your insurance card issued toy by care source. In light of your constellation of symptoms and chronic diarrhea refer to Dr. Maloney who is the GI specialist on-call Disposition Disposition: Home, Self Care What to do if you have Problems For any increased pain, shortness of breath, bleeding, nausea or vomiting, chestpain, or any unexpected problems, contact your Primary Care Provider. Call [facility] ([phone]) or report to the closest Emergency Room. Call 911 if necessary. 07/16/232044 <Electronically signed by Umer Messina MD> Cosigner Signature (if applicable): CC: No Primary Care Physician ~ Signed [facility] Work Phone: [phone]) 129-358801-05-2024 NoteHNO ID: [id number] Author: GABY GONZALEZ APRN.NIGHT CLERK AUDITOR Service: ? Author Type: Nurse Practitioner Type: Progress Notes Filed: 04/29/2023 15:59 Note Text: Sumit is a 17 year old No obstetric history on file. who presents for an annual gynecologic exam with complaints, missed March period and vaginal burning . Presents: alone Menses: cycles every 30 days and 6-7 days of flow. Contraception: none HPV vaccine: Unknown Last pap smear: never Sexually active: Not currently History of STDS: None Pain with intercourse: No Postcoital bleeding: No OB History No obstetric history on file. [employer] Worker History LMP: Age at Menarche: Age at First : Age at Menopause: [employer] Worker History Comments: Sexual Activity: No sexual activity data on record; No partner data on record Contraception: No contraception data on record No past medical history on file.No past surgical history on file.No family history on file.SOCIAL HISTORY REVIEW OF SYSTEMS Abdomen: No bloating, early satiety, indigestion, or increased flatulence. No abdominal pain, nausea, vomiting, diarrhea, or constipation. Bladder: No dysuria, gross hematuria, urinary frequency, urinary urgency, or incontinence. Breast: No breast lumps, nipple d/c, overlying skin changes, redness or skin retraction. Allergies and current medication updated:Yes EXAM: BP 98/58 Ht 5' 5 (1.65m) Wt 106 lb (48.1kg) LMP 04/28/2023 BMI 17.64 kg/(m2). GENERAL: pleasant, in no apparent distress HEENT: Normocephalic, atraumatic, mucus membranes moist, and no lesions NECK: Supple, full range of motion, no adenopathy, and thyroid normal DERMATOLOGY: Normal, without lesions, non-icteric, and non-hirsute BREAST: soft, non-tender, symmetric, no dominant mass, normal nipple-areolar complex, no lymphadenopathy, and no nipple discharge + fibrocystic changes to left upper outer breast CHEST: Normal inspiratory effort ABDOMEN: soft, non-tender, and no masses PELVIC: external genitalia normal, normal Bartholin's glands, urethra, Dunstan's glands, no vulvar lesions, no cervical lesions, good vaginal support, physiologic discharge present, normal appearing perineal body and perianal region + mild tenderness upon palpation to mid pelvis, on menses BIMANUAL: uterus normal size, shape and consistency, no adnexal masses, and non-tender NEURO: alert and oriented x3,exam grossly non-focal EXTREMITIES: normal ASSESSMENT/PLAN: 1) Health maintenance: Pap starting at the age of 21. Safe sex practices reviewed. Nutrition, exercise, and routine health maintenance exams reviewed. Mammograms starting at age 40. Uncertain of whether she had HPV vaccine. Encouraged to call pediatric office to determine vaccination status. 2) Contraception: none. Contraceptive options reviewed and information provided. 3) Follow up one year or sooner as needed. Acute vaginitis - ICD9: 616.10, ICD10: N76.0 - Patient notes burning - NICKI/TRICHOMONAS NAAT - BACTERIAL VAGINOSIS NAAT - GONORRHEA/CHLAMYDIA NAAT Amenorrhea - ICD9: 626.0, ICD10: N91.2 - Missed March period - Denies chance of , not sexually active at this time - Reports that weight was in 120s, recently lost due to GI symptoms she experienced with COVID - Discussed that weight changes can cause missed menses, in addition to stress - To notify if she continues to miss menses - Patient reports she is getting enough to eat - Considering Nexplanon for control. Pamphlet given. To notify if she would like to proceed Gaby Gonzalez APRN.[facility] noteNo assessment information availableWHocking Valley Community Hospital Work Phone: Evaluation note* Diagnosis Weight loss Loss of weight documented in this encounter [facility] note* Diagnosis Diarrhea, unspecified type [facility] Diagnosis Lower abdominal pain- Primary Abdominal pain, other specified site Acute cystitis with hematuria [facility]* Diagnosis Acute cough- Primary Dysuria [facility]* Diagnosis Threatened - Primary [facility]* Diagnosis Recurrent UTI (urinary tract infection) complicating , first trimester- Primary Pyelonephritis affecting , antepartum [facility]* Diagnosis Recurrent UTI (urinary tract infection) complicating , first trimester- Primary [facility]* Diagnosis Recurrent UTI (urinary tract infection) complicating , first trimester- Primary Recurrent UTI (urinary tract infection) complicating , first trimester- Primary [facility]* Diagnosis Recurrent UTI (urinary tract infection) complicating , first trimester- Primary Recurrent UTI (urinary tract infection) complicating , first trimester- Primary Amenorrhea Absence of menstruation documented [facility]* Diagnosis Recurrent UTI (urinary tract infection) complicating , first trimester- Primary Threatened [facility]* Diagnosis Recurrent UTI (urinary tract infection) complicating , first trimester- Primary Encounter for supervision in primigravida, antepartum- Primary Vaping nicotine dependence, tobacco product [facility]* Diagnosis Recurrent UTI (urinary tract infection) complicating , first trimester- Primary Encounter for supervision in primigravida, antepartum- Primary Vaping nicotine dependence, tobacco product Dysuria- Primary Encounter for supervision of normal first , first trimester care, first in second trimester Iron deficiency anemia secondary to inadequate dietary iron intake documented in [facility]* Diagnosis Recurrent UTI (urinary tract infection) complicating , first trimester- Primary Encounter for supervision in primigravida, antepartum- Primary Vaping nicotine dependence, tobacco product Dysuria- Primary Encounter for supervision of normal first , first trimester care, first in second trimester Iron deficiency anemia secondary to inadequate dietary iron intake Acute cystitis with hematuria- Primary Calcium oxalate calculus Bacterial vaginosis Unspecified vaginitis and vulvovaginitis Nicki vaginitis Candidiasis of vulva and vagina documented in this [facility]* Diagnosis Recurrent UTI (urinary tract infection) complicating , first trimester- Primary Encounter for supervision in primigravida, antepartum- Primary Vaping nicotine dependence, tobacco product Dysuria- Primary Encounter for supervision of normal first , first trimester care, first in second trimester Iron deficiency anemia secondary to inadequate dietary iron intake care, first in second trimester- Primary Recurrent UTI (urinary tract infection) complicating , first trimester Iron deficiency anemia, unspecified iron deficiency anemia type [facility] Additional Instructions The name of your primary care doctor is located on your insurance card issued to you by care source. In light of your constellation of symptoms and chronic diarrhea refer to Dr. Maloney who [facility] Hospital Discharge instructions* Attachments The following attachments cannot be sent through Care Everywhere. * Dysuria Discharge Instructions, Adult (Australian) * Cough Discharge Instructions, Adult (Australian) documented in this [facility] Chief Complaint and Reason for Visit Chief Complaint R HAND Chief Complaint BILAT BREAST PAIN SUSAN MPS Chief Complaint BILAT BREAST PAIN SUSAN MPS vaginal syncope Chief Complaint FATIGUE Summary Purpose Family History No Family History Records FoundNo Family History Records FoundNo Family History Records FoundNo Family History Records FoundNo Family History Records Found Advance Directives No Advanced Directives Records Found Advance Directive Response Recorded Date/ Time Living Will No July 16, 2023 6:58pm Power of Tableau Administrator No July 15 6:58pm Date Activated Date Inactivated Comments 06/14/2024 9:08 AM Date Activated Date Inactivated Comments 06/14/2024 9:08 AM 06/16/2024 5:12 PM Date Activated Date Inactivated Comments 06/14/2024 9:08 AM 06/16/2024 5:12 PM Additional Source Comments Goals (unrecognized section and content) Goals may be documented in a n alternate sectionGoals may be documented in an alternate sectionGoals may be documented in an alternate sectionGoals may be documented in an alternate section Care Teams (unrecognized sec tion and content) Team Status: Active Member Role Status Dates No Primary Care Physician Primary Care Provider Active Team Status: Inactive Member Role Status Dates No Primary Care Physician Primary Care Provider Active Galina Valdez INTERFACE ENGINEER, INTERFACE ENGINEER-C Attending Provider, Referring Provider Active Team Status: Active Member Role Status Dates Dr. Jeremy Vásquez MD Primary Care Provider Active Team Status: Inactive Member Role Status Dates Dr. Humphrey Tapia DO Attending Provider, Emergency P oralia Active Dr. Jeremy Vásquez MD Primary Care Provider Active Team Status: Inactive Member Role Status Dates Dr. Jeremy Vásquez MD Primary Care Provider Active Dr. Ludivina Hein MD Emergency Provider Active Team Status: Inactive Member Role Status Dates Dr. 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 Relationship Specialty Start Date End Date Jeremy Vásquez MD [address] [place] [address] PCP - General Pediatrics 04/03/20 Track Vehicle Repairer Relationship Specialty Start Date End Date Jeremy Vásquez MD [address] [place] [address] PCP - General Pediatrics 04/03/20 [employer] Relationship Specialty Start Date End Date Jeremy Vásquez [address] [place] [address] PCP - General Pediatrics 06/14/24 [employer] Vehicle Rep[employer]r Relationship Specialty Start Date End Date Jeremy V[facility]quez [facility] [place] [address] PCP - General Pediatrics 06/14/24 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 Vehicle 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 Relationship Specialty Start Date End Date Jeremy Vásquez [address] [place] [id number] PCP - General Pediatrics 06/14/24 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 Vehicle 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 Relationship Specialty Start Date End Date Jeremy Vásquez [address] [place] [address] [id number] PCP - General Pediatrics 06/14/24 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 Vehicle 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 Relationship Specialty Start Date End Date Jeremy Vásquez [address] [place] [address] [id number] PCP - General Pediatrics 06/14/24 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 Vehicle 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 Relationship Specialty Start Date End Date Jeremy Vásquez [address] [place] [address] [id number] PCP - General Pediatrics 06/14/24 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 Vehicle 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 Relationship Specialty Start Date End Date Jeremy Vásquez [address] [place] [address] [id number] PCP - General Pediatrics 06/14/24 INFORMATION SOURCE (unrecogn ized section and content) DATE CREATED AUTHOR 05/22/2023 [facility] DATE CREATED AUTHOR AUTHOR'S ORGANIZ ATION 07/29/2023 [facility] DATE CREATED AUTHOR AUTHOR'S ORGANIZ ATION 07/30/2023 [facility] DATE CREATED AUTHOR AUTHOR'S ORGANIZ ATION 06/11/2024 [facility] DATE CREATED AUTHOR AUTHOR'S ORGANIZ ATION 09/19/2024 [facility] Reason for Visit (unrecogniz ed section and content) Reason Comments Abdominal Pain Vaginal Bleeding Reason Comments Flu Symptoms Reason Comments Dizziness Vaginal Itching Specialty Diagnoses / Procedures Referred By Contac t Referred To Contact Diagnoses Pyelonephritis affecting , antepartum Recurrent UTI (urinary tract infection) complicating , first trimester Procedures . Jef Fabian, [address] [address] Phone: tel: fax: [facility] [address] [place] [address] Phone: tel: Referral ID Status Reason Start Date Expiration Date Visits Re quested Visits Authorized [id number] 1 Reason Comments Hospital Follow-up Uti, yeast infection , Reason Comments Follow-up U/S follow up Reason Comments Follow-up Reason Comments Dizziness Fainting Reason Comments Routine Visit 13 weeks, 2 days. No c/o. Reason Comments Abdominal Pain Reason Comments Routine Visit Discuss short ter m disability Scheduled Active and Recently Administ ered Medications (unrecognized section and content) Medication Order 06/14/2024 06/15/2024 06/16/2024 cefTRIAXone (Rocephin) 1 g in sodium chloride 0.9 % 50 mL IVPB Mini-Bag Plus (COMPLETED) 1 g, IntraVENous, at 100 mL/hr, Administer over 30 Minutes, Once, On Chastity 06/14/24 at 0200, For 1 dose, Mini-Bag Plus bag, Suspected Indication (Select all that apply): Urinary Tract Infection 0205 (New Bag - Provider: Nereyda Woodson, YUDI)0309 (Stopped - Provider: Nereyda Woodson, YUDI) cefTRIAXone (Rocephin) 1 g in sodium chloride 0.9 % 50 mL IVPB Mini-Bag Plus 1 g, IntraVENous, at 100 mL/hr, Administer over 30 Minutes, Every 24 hours, First dose (after last reorder) on Tue06/15/24 at 0000, For 14 days, Mini-Bag Plus bag, Suspected Indication (Select all that apply): Urinary Tract Infection 0004 (New Bag - Provider: Cecelia Santos RN)0034 (Stopped - Provider: Cecelia Santos RN) 0014 (New Bag - Provider: Bella Quiroz RN)0044 (Stopped - Provider: Cecelia Santos RN) ferrous sulfate tablet 325 mg 325 mg, Oral, Daily with breakfast, First dose on 06/16/24 at 0930 0927 (Given - Provider: Bella Gunn, RN) vitamin tablet 1 tablet, Oral, Daily, First dose on Chastity 06/14/24 at 1120 1313 (Given - Provider: Gaby Acuna RN) 1231 (Given - Provider: Shamar Estes, RN) 0925 (Given - Provider: Bella Gunn, RN) sodium chloride 0.9 % bolus 1,000 mL (COMPLETED) 1,000 mL, IntraVENous, at 1,000 mL/hr, Administer over 1 Hours, Once, On Chastity 06/14/24 at 0135, For 1 dose 0135 (New Bag - Provider: Nereyda Woodson, RN)0310 (Stopped - Provider: Nereyda Woodson, RN) PRN Medication Order 06/14/2024 06/15/2024 06/16/2024 acetaminophen (Tylenol) suppository 650 mg(Linked Group 1) 650 mg, Rectal, Every 6 hours PRN, fever, For temp greater than 100.4 F (38 C), Starting on Chastity 06/14/24 at 0907, Administer if oral route cannot be used. Maximum dose of acetaminophen is 4000 mg from all sources in 24 hours. 0543 (See Alternative - Provider: Cecelia Santos RN)1601 (See Alternative - Provider: Shamar Estes RN) 0105 (See Alternative - Provider: Cecelia Santos, RN) acetaminophen (Tylenol) tablet 650 mg(Linked Group 1) 650 mg, Oral, Every 6 hours PRN, mild pain (1-3), fever, For temp greater than 100.4 F (38 C), Starting on Chastity 06/14/24 at 0907, Maximum dose of acetaminophen is 4000 mg from all sources in 24 hours. 0543 (Given - Provider: Cecelia Santos RN)1601 (Given - Provider: Shamar Estes, RN) 0105 (Given - Provider: Cecelia Santos, RN) ondansetron (Zofran) injection 4 mg (CANCELED)(Linked Group 2) 4 mg, IntraVENous, Every 6 hours PRN, nausea, vomiting, Starting on Chastity 06/14/24 at 0907, 1st Line. Give IV if patient is unable to take orally. If inadequate response within 60 minutes, proceed to next-line agent or contact provider if no further options ordered. 1647 (Given - Provider: Raysa Garcia RN) polyethylene glycol (PEG) 3350 (Miralax) packet 17 g 17 g, Oral, Daily PRN, constipation, Starting on Chastity 06/14/24 at 0907, 1st line for treatment of constipation - give scheduled if no bowel movement in past 24 hours. prochlorperazine (Compazine) injection 5 mg 5 mg, IntraVENous, Every 8 hours PRN, nausea, vomiting, Starting on 06/16/24 at 0916 Linked Groups Order Group 1: acetaminophen (Tylenol) tablet 650 mgJump to med 650 mg, Oral, Every 6 hours PRN, mild pain (1-3), fever, For temp greater than 100.4 F (38 C), Starting on Chastity 06/14/24 at 0907, Maximum dose of acetaminophen is 4000 mg from all sources in 24 hours. Or acetaminophen (Tylenol) suppository 650 mgJump to med 650 mg, Rectal, Every 6 hours PRN, fever, For temp greater than 100.4 F (38 C), Starting on Chastity 06/14/24 at 0907, Administer if oral route cannot be used. Maximum dose of acetaminophen is 4000 mg from all sources in 24 hours. Group 2: ondansetron ODT (Zofran-ODT) disintegrating tablet 4 mg (CANCELED) 4 mg, Oral, Every 8 hours PRN, nausea, vomiting, Starting on Chastity 06/14/24 at 0907, 1st Line. If inadequate response within 60 minutes, proceed to next-line agent or contact provider if no further options ordered. Patient should allow tablet to dissolve on tongue. Do not remove from blister pack until just before administering. Or ondansetron (Zofran) injection 4 mg (CANCELED)Jump to med 4 mg, IntraVENous, Every 6 hours PRN, nausea, vomiting, Starting on Chastity 06/14/24 at 0907, 1st Line. Give IV if patient is unable to take orally. If inadequate response within 60 minutes, proceed to next-line agent or contact provider if no further options ordered. Scheduled Medication Order 09/03/2024 09/04/2024 09/05/2024 acetaminophen (Tylenol) tablet 650 mg 650 mg, Oral, Once, On Tue09/04/24 at 1350, For 1 dose, Maximum dose of acetaminophen is 4000 mg from all sources in 24 hours. 1358 (Not Given - Provider: Dulce Lanza RN - Reason: Patient/family refused) cephalexin (Keflex) capsule 500 mg (COMPLETED) 500 mg, Oral, Once, On Tue09/04/24 at 1840, For 1 dose, Suspected Indication (Select all that apply): Urinary Tract Infection 1843 (Given - Provider: Vania Palacios RN) FOR RECORDS PERTAINING TO PATIENTS WHO ARE OR HAVE BEEN ENROLLED IN A CHEMICAL DEPENDENCY/SUBSTANCEABUSE PROGRAM, SOME INFORMATION MAY BE OMITTED. This clinical summary was aggregated from multiple sources. Caution should be exercised in using it in the provision of clinical care. This summary normalizes information from multiple sources, and as a consequence, information in this document may materially change the coding, format and clinical context of patient data. In addition, data may be omitted in some cases. CLINICAL DECISIONS SHOULD BE BASED ON THE PRIMARY CLINICAL RECORDS. [employer] provides no warranty or guarantee of the accuracy or completeness of information in this document.
[2024-09-26 07:46] VITALS: BP 101/60; PULSE 88; RESP 18; TEMP 36.8; O2SAT 99
== END 2024-09-26 07:46 | disposition home or self-care (01) ==
PROVIDERS: Emergency Provider Emergency Medicine; Visit Provider Emergency Medicine
DX: O23.592 Infection of other part of genital tract in pregnancy, second trimester (principal); B37.31 Acute candidiasis of vulva and vagina; O99.512 Diseases of the respiratory system complicating pregnancy, second trimester; J00 Acute nasopharyngitis [common cold]; O99.891 Other specified diseases and conditions complicating pregnancy; H92.03 Otalgia, bilateral; Z3A.20 20 weeks gestation of pregnancy
CPT/HCPCS: 99283

== ENCOUNTER 2024-11-22 23:30 | Outpatient (CLI) | payer MEDICAID, SELFPAY ==
--- OUTSIDE RECORDS SUMMARY | 2024-11-22 23:34 | XMS RPT_ITS | CCD ---
Author Organization [facility] Care Team Providers Care Primary Grade Teacher Name Role Phone GABY GONZALEZ Attending Unavailable Jeremy Vásquez MD Primary Care Provider JEREMY VÁSQUEZ Attending Unavailable REFERRED, SELF Referring Unavailable JEREMY VÁSQUEZ Primary Care Unavailable JEREMY VÁSQUEZ Attending Unavailable JEREMY VÁSQUEZ Referring Unavailable JEREMY VÁSQUEZ Primary Care Unavailable JEREMY VÁSQUEZ Attending Unavailable JEREMY VÁSQUEZ Referring Unavailable JEREMY VÁSQUEZ Primary Care Unavailable STACEY ALDRIDGE Attending Unavailable LUDIVINA HEIN Referring Unavailable [...] UNKNOWN Consulting Unavailable Unavailable Primary Care Provider Unavailabl e Jeremy Vásquez Primary Care Provider [phone] Ronald Andrew Attending Unavailable Care Physician, No Primary Primary Care Unava Reji Morales Attending Unavailable Care Physician, No Primary Primary Care Unava david Garcia MD, Dr. Mendoza Emergency Provider Care Physician, No Primary Primary Care Provider Unavailable MODESTO CATES Attending Unavailable MAYO MAGUIRE Attending Unavailable FAHAD, JEREMY Primary Care Unavailable KAITLIN AIKEN Attending Unavailable FAHAD, JEREMY Primary Care Unavailable MIKAL WOODSON Attending Unavailable MARIAN COUGHLIN Admitting Unavailable MARIAN COUGHLIN Attending Unavailable FAHAD, JEREMY Primary Care Unavailable FAHAD, JEREMY Primary Care Unavailable JEF FABIAN Admitting Unavailable JEF FABIAN Attending Unavailable OVI DELACRUZ Attending Unavailable OVI DELACRUZ Attending Unavailable GLORIA OHARA Attending Unavailable JEREMY VÁSQUEZ Primary Care Unavailable AUREA RODRIGUEZ Attending Unavailable MIKAL WOODSON Referring Unavailable KARRIE VELÁSQUEZ Attending Unavailable KARRIE VELÁSQUEZ Referring Unavailable JEREMY VÁSQUEZ Primary Care Unavailable STACEY CROUCH Attending Unavailable KI BREEN Referring Unavailable KI BREEN Referring Unavailable FAHADJEREMY ESTRADA [facility] Care Unavailable KI BREEN Attending Unavailable MODESTO CATES Attending Unavailable Medications Current Medications Medication Drug Class(es) Dates Sig (Normalized) Sig (Original) [id number] 200 actuat albuterol 0.09 mg/actuat metered dose [...] Active doxylamine succinate 25 mg oral tablet (20 sources) Start: 06-29-2024 End: 12-08-2024 take 1 tablet by mouth once daily as needed for sleep doxylamine (Unisom) 25 MG tablet Take 1 tablet (25 mg) by mouth Nightly as needed for sleep. 30 tablet 3 08/10/2024 12/08/2024 Active ferrous sulfate 325 mg oral tablet (20 sources) Start: 11-09-2024 End: 01-08-2025 take 1 tablet by mouth every other day ferrous sulfate 325 (65 Fe) MG tablet Indications: Iron deficiency anemia, unspecified iron deficiency anemia type Take 1 tablet (325 mg) by mouth every other day. 15 tablet 1 11/09/2024 01/08/2025 Active Start: 06-16-2024 End: 11-09-2024 take 1 tablet by mouth once daily at breakfast ferrous sulfate 325 (65 Fe) MG tablet Take 1 tablet (325 mg) by mouth daily (with breakfast). 30 tablet 06/17/2024 07/17/2024 Active Start: 07-21-2023 take 1 tablet by mouth once da dustin ferrous sulfate (FEOSOL) 325 (65 FE) MG TABS tablet Take 1 Tablet (65 mg of elemental iron) by mouth daily 30 Tablet 2 07/21/2023 Active ibuprofen 600 mg oral tablet (1 source) Nonsteroidal Anti-inflammatory Drug Start: 05-25-2024 take 1 tablet by mouth every eight hours as needed for pain Ibuprofen 600 mg tablet Active 600 mg PO Q8H as needed for fever or pain May 25, 2024 1:00am metroNIDAZOLE 500 mg oral tablet (3 sources) Nitroimidazole Antimicrobial Start: 09-05-2024 End: 09-12-2024 take 1 tablet by mouth twice daily metroNIDAZOLE (Flagyl) 500 MG tablet Take 1 tablet (500 mg) by mouth 2 times daily for 7 days. 14 tablet 09/05/2024 09/12/2024 Active miconazole nitrate 20 mg/ml vaginal cream (1 source) Azole Antifungal Start: 09-26-2024 Miconazole Nitrate (Miconazole-7) 2 % cream Active 1 NMA VAGINAL AT BEDTIME 45 7 September 26, 2024 12:00am Nerve Stimulator (Standard TENS) device (8 sources) Start: 10-10-2024 Nerve Stimulator (Standard TENS) device 1 Units as needed (hip pain). 1 each 10/10/2024 Active Nerve Stimulator (TENS Therapy Replace Back Pads) misc (8 sources) Start: 10-10-2024 Nerve Stimulator (TENS Therapy Replace Back Pads) misc 2 Units as needed (hip pain). 10 each 2 10/10/2024 Active 24 hr nicotine 0.292 mg/hr transdermal system (20 sources) Cholinergic Nicotinic Agonist Start: 06-29-2024 End: 10-27-2024 nicotine (Nicoderm, Step 3) 7 MG/24HR patch Place 1 patch on the skin Every 24 hours. 30 patch 3 06/29/2024 Active penicillin v potassium 500 mg oral tablet (1 source) Start: 05-25-2024 take 1 tablet by mouth every six hours Penicillin V Potassium 500 mg tablet Active 500 mg PO EVERY 6 HOURS 28 7 May 25, 2024 1:00am predniSONE 20 mg oral tablet (4 sources) [...] hours. 90 tablet 1 06/29/2024 09/27/2024 Active [facility] Comment on above: Performed By: #### 2 00503 ####[facility],[address] [place] [address] Erythrocyte distribution width (RBC) [Ratio] 17.1 % High 12.0 - 15.6 [facility] Comment on above: Performed By: #### 2 21061 ####[facility],[address] [place] [address] Hematocrit (Bld) [Volume fraction] 36.0 % Normal 34.0 - 46.0 [facility] Comment on above: Performed By: #### 2 30249 ####[facility],[address] [place], [place] [address] Hemoglobin (Bld) [Mass/Vol] 12.0 g/dL Normal 12.0 - 16.0 [facility] Comment on above: Performed By: #### 2 13081 ####[facility],[address] [place], [place] [address] Lymph # 0.85 x10EE3/UL Normal 0.80 - 2.80 [facility] Comment on above: Performed By: #### 2 90290 ####[facility],[address] [place], [place] [address] Lymphocytes/100 WBC (Bld) 10.8 % Low 20.0 - 45.0 [facility] Comment on above: Performed By: #### 2 82065 ####[facility],[address] [place] [address] MANUAL DIFF N/A Normal [facility] Comment on above: Performed By: #### 2 56838 ####[facility],[address] [place] [address] MCH (RBC) [Entitic mass] 25 pg Low 27 - 33 [facility] Comment on above: Performed By: #### 2 93156 ####[facility],[address] [place] [address] MCHC 33 X10 3 Normal 32 - 36 [facility] Comment on above: Performed By: #### 2 76627 ####[facility],[address] [place] [address] MCV (RBC) [Entitic vol] 74 fL Low 80 - 99 [facility] Comment on above: Performed By: #### 2 78634 ####[facility],[address] [place] [address] Milam # 0.70 x10EE3/UL Normal 0.20 - 1.00 [facility] Comment on above: Performed By: #### 2 02200 ####[facility],[address] [place] [address] MONOS % 9.0 % Normal 0.0 - 10.0 [facility] Comment on above: Performed By: #### 2 26649 ####[facility],[address] [place] [address] Morphology Zack (Bld) [Interp] N/A Normal [facility] Comment on above: Performed By: #### 2 10795 ####[facility],[address] [place] [address] Neut # 6.14 x10EE3/UL Normal 1.50 - 7.10 [facility] Comment on above: Performed By: #### 2 67016 ####[facility],[address],[place] [address] Neutrophils/100 WBC (Bld) 78.7 % High 46.0 - 76.0 [facility] Comment on above: Performed By: #### 2 58292 ####[facility],[address] [place] [address] PLATELET 279 x10EE3/UL Normal 150 - 450 [facility] Comment on above: Performed By: #### 2 18751 ####[facility],[address] [place] [address] Platelet mean volume (Bld) [Entitic vol] 7.5 fL Normal 6.6 - 10.5 [facility] Comment on above: Result Comment: AUTO MATED DIFFERENTIAL Performed By: #### 2 57894 ####[facility],[address] [place], [place] [address] RBC 4.87 x 10EE6/UL Normal 4.10 - 5.30 [facility] Comment on above: Performed By: #### 2 60354 ####[facility],[address] [place], [place] [address] WBC 7.8 x 10EE3/UL Normal 4.5 - 10.8 [facility] Comment on above: Performed By: #### 2 70975 ####[facility],[address] [place] [address] CMP with eGFRon 07-25-2023 AGE 17 years Normal [facility] Comment on above: Performed By: #### 2 43614 #### [facility],[address] [place] [address] 52794 Albumin [Mass/Vol] 4.2 g/dL Normal 3.4 - 5.0 [facility] Comment on above: Performed By: #### 2 64970 #### [facility],[address] [place] [address] Albumin/Globulin [Mass ratio] 1.3 {ratio} Normal 0.9 - 1.6 [facility] Comment on above: Performed By: #### 2 31664 #### [facility],[address] [place] [address]26 ALK PHOS 64 U/L Normal 46 - 116 [facility] Comment on above: Performed By: #### 2 38515 #### [facility],[address] [place] [address] 33814 ALT [Catalytic activity/Vol] 18 U/L Normal 16 - 63 [facility] Comment on above: Performed By: #### 2 97847 #### [facility],[address] [place] [address] Anion gap [Moles/Vol] 12 mmol/L Normal 10 - 20 [facility] Comment on above: Performed By: #### 2 20681 #### [facility],[address] [place] [address]1934 AST [Catalytic activity/Vol] 17 U/L Normal 13 - 39 [facility] Comment on above: Performed By: #### 2 97523 #### [facility],[address] [place] [address]2630 B/C RATIO 5 ratio Normal 0 - 30 [facility] Comment on above: Performed By: #### 2 29611 #### [facility],[address] [place] [address] 66143 Bilirubin [Mass/Vol] 0.3 mg/dL Normal 0.2 - 1.0 [facility] Comment on above: Performed By: #### 2 31256 #### [facility],[address] [place] [address]4928 Calcium [Mass/Vol] 8.7 mg/dL Normal 8.5 - 10.1 [facility] Comment on above: Performed By: #### 2 67942 #### [facility],[address] [place] [address] 87012 Chloride [Moles/Vol] 108 mmol/L High 98 - 107 [facility] Comment on above: Performed By: #### 2 22251 #### [facility],[address] [place] [address] 66700 CMP with eGFR Normal [facility] Comment on above: Result Comment: COMP REHENSIVE METABOLIC PANEL Performed By: #### 2 88433 #### [facility],[address] [place] [address] 66783 CO2 [Moles/Vol] 28.3 mmol/L Normal 21.0 - 32.0 [facility] Comment on above: Performed By: #### 2 69396 #### [facility],[address] [place] [address]86 Creatinine [Mass/Vol] 0.73 mg/dL Normal 0.55 - 1.02 [facility] Comment on above: Performed By: #### 2 83752 #### [facility],[address] [place] [address] GFR/1.73 sq M.predicted among non-blacks MDRD (S/P/Bld) [Vol rate/Area] mL/min/{1.73_m2} Normal 60 - 999 [facility] Comment on above: Performed By: #### 2 84422 #### [facility],[address] [place] [address] 32267 Result Comment: ACCO RDING TO THE NATIONAL KIDNEY DISEASE EDUCATION PROGRAM(NKDE), A NORMAL eGFR IS A VALUE GREATER THAN OR EQUAL TO 60 ML/MIN/1.73 SQ METERS. CHRONIC KIDNEY DISEASE: <60mL/MIN/1.73 SQ METERS KIDNEY FAILURE: <15mL/MIN/1.73 SQ METERS THIS TEST SHOULD ONLY BE USED FOR PATIENTS 18 YEARS OF AGE AND OLDER. Globulin (S) [Mass/Vol] 3.2 g/dL Normal 1.5 - 3.8 [facility] Comment on above: Performed By: #### 2 62475 #### [facility],[address] [place] [address] 23063 Glucose [Mass/Vol] 90 mg/dL Normal 74 - 106 [facility] Comment on above: Performed By: #### 2 50469 #### [facility],[address] [place] [address]2374 Potassium [Moles/Vol] 4.1 mmol/L Normal 3.5 - 5.1 [facility] Comment on above: Performed By: #### 2 58230 #### [facility],[address] [place] [address] 75290 Protein [Mass/Vol] 7.4 g/dL Normal 6.4 - 8.2 [facility] Comment on above: Performed By: #### 2 45922 #### [facility],[address] [place] [address]34 Sodium [Moles/Vol] 144 mmol/L Normal 136 - 145 [facility] Comment on above: Performed By: #### 2 03685 #### [facility],[address] [place] [address] 78414 Urea nitrogen [Mass/Vol] 4 mg/dL Low 7 - 18 [facility] Comment on above: Performed By: #### 2 12681 #### [facility],[address] [place] [address] ABDOMEN/PELVIS [facility] 2023 CT ABDOMEN/PELVIS [address] [address] Patient: SUMIT GREEN Phone#: : 2005 Age: 17 Gender: F Pt. Type: ER Account: [id number] Location: 052 Ordering: JOE FARMER Exam Date: 07/25/2023/12:25 Family Phys: Charge Code: 220236 Physician: Carver Order #: [id number] Dose#: 9.00 PROCEDURE: CT ABDOMEN/PELVIS WITH CONTRAST [...] 17 Gender: F Pt. Type: ER Account: [id number] Location: [facility] Ordering: JOE FARMER Exam Date: 07/25/2023/12:25 Family Phys: Charge Code: 248197 Physician: Carver Order #: [id number] Dose#: 9.00 CONCLUSION: 1. Small amount of free fluid is present in the pelvis. 2. No other acute abdominal or pelvic abnormality is identified. Dictated by: Dhara Ruano MD on 07/25/2023 at 12:45 Approved by: Dhara Ruano MD on 07/25/2023 at 12:52 Normal [facility] DRUG SCREEN URINE MEDICon AMPHETAMINES Negative Normal [facility] Comment on above: Performed By: #### 2 72076 #### [facility],[address] [place] [address] B-DIAZEPINES Negative Normal [facility] Comment on above: Performed By: #### 2 62157 #### [facility],[address] [place] [address],[facility] [address] BARBITURATES Negative Normal [facility] Comment on above: Performed By: #### 2 80607 #### [facility],[address] [place] [address],[facility] [address] COCAINE Negative Normal [facility] Comment on above: Performed By: #### 2 37869 #### [facility],[address] [place] [address],[facility] [address] DRUG SCREEN URINE MEDIC Normal [facility] Comment on above: Result Comment: DRUG SCREEN - URINE Performed By: #### 2 60087 #### [facility],[address] [place] [address],[facility] [address] METHADONE Negative [facility] Comment on above: Performed By: #### 2 02520 #### [facility],[address] [place] [address] OPIATES Negative [facility] Comment on above: Performed By: #### 2 79425 #### [facility],[address] [place] [address] PCP Negative [facility] Comment on above: Performed By: #### 2 30631 #### [facility],[address] [place] [address] 56469 THC Positive Normal [facility] Comment on above: Result Comment: JINA ENTS RECEIVING PROTON PUMP INHIBITORS MAY DEMONSTRATE FALSE POSITIVE THC/CANNABINOID RESULTS. AN ALTERNATIVE CONFIRMATORY METHOD SHOULD BE CONSIDERED TO VERIFY POSITIVE RESULTS. Performed By: #### 2 79157 #### [facility],[address] [place] [address] LIPASEon 07-25-2023 Lipase [Catalytic activity/Vol] 15.0 U/L Normal 15.0 - 78.0 [facility] Comment on above: Result Comment: *PLE ASE NOTE THAT RANGES FOR LIPASE HAVE CHANGED OF 04/22/23 DUE TO AN ASSAY UPDATE BY THE FABRIC NORMALIZER.THE NEW ASSAY RANGE IS 6-250 U/L, WITH A REFERENCE RANGE OF 16-77 U/L. Performed By: #### 2 26993 #### [facility],[address] [place] [address] URINEon 07-25-2023 Beta HCG ( test) Ql (U) Negative Normal NEGATIVE [facility] Comment on above: Performed By: #### 2 80547 #### [facility],[address] [place] [address] EXTERNAL QC DONE? YES Normal [facility] Comment on above: Performed By: #### 2 04576 #### [facility],[address] [place] [address] INTERNAL QC PASS Normal [facility] Comment on above: Performed By: #### 2 45203 #### [facility],[address] [place] [address] URINALYSISon 07-25-2023 Amorphous NONE Normal [facility] Comment on above: Performed By: #### 2 57348 #### [facility],[address] [place] [address] Bacteria 1+ Normal [facility] Comment on above: Performed By: #### 2 47183 #### [facility],[address] [place], [place] [address] Bilirubin Ql (U) Negative Normal NORMAL: NEGATIVE [facility] Comment on above: Performed By: #### 2 68747 #### [facility],[address] [place] [address] Casts NONE Normal [facility] Comment on above: Performed By: #### 2 53101 #### [facility],[address] [place], [place] [address] Clarity (U) clear Normal NORMAL: CLEAR [facility] Comment on above: Performed By: #### 2 71505 #### [facility],[address] [place] [address] Color (U) yellow Normal NORMAL: YELLOW [facility] Comment on above: Performed By: #### 2 02866 #### [facility],[address] [place] [address]3548 Crystals LM Nom (Urine sed) NONE Normal [facility] Comment on above: Performed By: #### 2 85474 #### [facility],[address] [place] [address]3225 Epi Cells FEW Normal [facility] Comment on above: Performed By: #### 2 56217 #### [facility],[address] [place] [address] 55050 Glucose Ql (U) NORM Normal NORMAL: NORMAL [facility] Comment on above: Performed By: #### 2 66550 #### [facility],[address] [place] [address]6613 Hemoglobin Ql (U) 250 Abnormal NORMAL: NEGATIVE [facility] Comment on above: Performed By: #### 2 89267 #### [facility],[address] [place] [address] 70804 Ketone Negative Normal NORMAL: NEGATIVE [facility] Comment on above: Performed By: #### 2 10478 #### [facility],[address] [place] [address]656 Leukocytes Negative Normal NORMAL: NEGATIVE [facility] Comment on above: Performed By: #### 2 08237 #### [facility],[address] [place] [address] 17628 Mucous 2+ Normal [facility] Comment on above: Performed By: #### 2 52344 #### [facility],[address] [place] [address] 57592 Nitrite Ql (U) Negative Normal NORMAL: NEGATIVE [facility] Comment on above: Performed By: #### 2 13833 #### [facility],[address] [place] [address] 05513 pH (U) 5 [pH] Normal NORMAL: 5.0-8.0 [facility] Comment on above: Performed By: #### 2 02389 #### [facility],[address] [place] [address] Protein Ql (U) 30 Abnormal NORMAL: NEGATIVE [facility] Comment on above: Performed By: #### 2 89271 #### [facility],[address] [place] [address] Rbc 5-10 Normal 0-3/hpf [facility] Comment on above: Performed By: #### 2 73517 #### [facility],[address] [place] [address] Sp [place] 1.025 Normal NORMAL: 1.010-1.030 [facility] Comment on above: Performed By: #### 2 19959 #### [facility],[address] [place] [address] Specimen Type Clean catch Normal [facility] Comment on above: Performed By: #### 2 32936 #### [facility],[address] [place] [address] Urinalysis dipstick W Reflex Microscopic panel (U) SEE BELOW Normal [facility] Comment on above: Result Comment: MICR OSCOPIC Performed By: #### 2 07157 #### [facility],[address] [place] [address] Urobilinog NORM Normal NORMAL: NORMAL [facility] Comment on above: Performed By: #### 2 63336 #### [facility],[address] [place] [address] Wbc 1-5 Normal 0-5/hpf [facility] Comment on above: Performed By: #### 2 53664 #### [facility],[address] [place] [address] Yeast NONE Normal [facility] Comment on above: Performed By: #### 2 82746 #### [facility],[address] [place] [address] US RUQ (GB/PANCREAS)on 07-24 RUQ (GB/PANCREAS) [place] [address] Patient: SUMIT GREEN Phone#: : 2005 Age: 17 Gender: F Pt. Type: ER Account: [id number] Location: 2 Ordering: JOE FARMER Exam Date: 07/25/2023/13:39 Family Phys: JEREMY VÁSQUEZ Charge Code: [id number] Physician: Carver Order #: [id number] Dose#: PROCEDURE: RUQ (GB) ULTRASOUND COMPARISON: None. [...] JASSO MD ON 07/25/2023 AT 14:29 Normal [facility] Enteric Cultureon 07-22-2023 Enteric Culture Release to patient->Automatic 80558&Stool Enteric Culture: No Salmonella or Shigella isolated. [...] Shigella, Campylobacter and Shiga-toxin positive E.coli. Normal [facility] Comment on above: Performed By: #### S TOOL #### [address] [address] Giardia and Cryptosporidia S creenon 07-22-2023 Giardia and Cryptosporidia Screen Release to patient->Automatic 22273&Stool Giardia and Cryptosporidia Screen: Giardia lamblia Ag: NEGATIVE Source: STOOL Collected: 07/22/23 13:58 Site: Received : 07/22/23 20:50 Giardia and Cryptosporidia Screen FINAL 07/23/23 12:22 Giardia lamblia Ag: NEGATIVE Enzyme Immunoassay - Normal Result: Negative - Cryptosporidium Ag: NEGATIVE Enzyme Immunoassay - Normal Result: Negative Normal [facility] Comment on above: Performed By: #### C TNG #### [address] [address] Ironon 07-21-2023 %Saturation 8 % Low 13-59 [facility] Comment on above: Order Comment: Pleas e include TIBC. Release to patient->Automatic 08778&Blood Performed By: #### I CAR #### [address] [address] TIBC 427 ug/dL Normal 228-428 [facility] Comment on above: Order Comment: Pleas e include TIBC. Release to patient->Automatic 32191&Blood Performed By: #### I CAR #### [address] [address] Transglutaminase IgAon 07-20 Transglutaminase IgA <1.60 Normal 0.00-8.99 [facility] Comment on above: Order Comment: Relea se to patient->Automatic 16194&Blood Result Comment: NEGATIVE Interpretation of Results: Negative: <9.0 AU/mL Equivocal: 9.0-16.0 AU/mL Positive: >16.0 AU/mL Method: The anti-tTG antibodies were determined using an KARAN-based commercially available kit (Eu-tTG [facility]). Performed By: #### T RGLA #### [address] [address] C-Reactive Proteinon 024 CRP [Mass/Vol] mg/L Normal 0.0-1.0 [facility] Comment on above: Order Comment: Pleas e include TIBC. Release to patient->Automatic 26522&Blood Result Comment: CRP determinations in neonates should be interpreted with caution. CRP may be elevated in circumstances not associated with inflammation (e.g. difficult delivery, pneumothorax). In premature neonates CRP levels may not rise to abnormal levels even if sepsis is present; some speculate that immature liver function decreases the ability to generate a CRP response. Performed By: #### C RP #### [address] [address] C-reactive protein (Lab Jeannie ect)on 07-20-2023 CRP [Mass/Vol] mg/L 0.0 - 1.0 mg/dL [facility] Comment on above: CRP determinations i [...] external lab?->No Release to patient->Manual release only 00063&Urine-First Void^^^Urine&Urine C. trachomatis PCR on GeneXpert: NEGATIVE-Chlamydia trachomatis DNA: NOT DETECTED. Source: [facility] Collected: 07/20/23 15:16 Site: Urine Received : 07/20/23 21:24 C. trachomatis PCR on GeneXpert FINAL 07/21/23 10:01 NEGATIVE-Chlamydia trachomatis DNA: NOT DETECTED. - GC PCR on GeneXpert FINAL 07/21/23 10:01 NEGATIVE-Neisseria gonorrhea DNA: NOT DETECTED. - Method: DNA detection by RT PCR on a GeneYieldMo analyzer. - NOTE: This Amplified DNA Assay [...] may result in reduced assay sensitivity. Normal [facility] Comment on above: Performed By: #### C TNG #### [place] [address] Comp Metabolic Panelon 07-19 Glucose [Mass/Vol] 84 mg/dL Normal 70-99 [facility] Comment on above: Order Comment: Pleas e include TIBC. Release to patient->Automatic 26271&Blood Result Comment: Yet otto for Diagnosis of Diabetes: Fasting Specimen (no caloric intake for at least 8 hours): <100 mg/dL Normal 100-125 mg/dL Increased risk for Diabetes >125 mg/dL Diagnostic for Diabetes Random Glucose (any time of day without regard to last meal): > or = 200 mg/dL plus Classic Symptoms of Diabetes Performed By: #### C MP #### [place] [address] Protein [Mass/Vol] 7.6 g/dL Normal 5.9-8.4 [facility] Comment on above: Order Comment: Pleas e include TIBC. Release to patient->Automatic 93660&Blood Performed By: #### C MP #### [place] [address] Urea nitrogen [Mass/Vol] 7 mg/dL Normal 4-19 [facility] Comment on above: Order Comment: Pleas e include TIBC. Release to patient->Automatic 23001&Blood Performed By: #### C MP #### [place] [address] Albumin [Mass/Vol] 4.8 g/dL Normal 3.5-5.0 [facility] Comment on above: Order Comment: Pleas e include TIBC. Release to patient->Automatic 30304&Blood Performed By: #### C MP #### [address] [address] ALP [Catalytic activity/Vol] 59 U/L Normal 43-83 [facility] Comment on above: Order Comment: Pleas e include TIBC. Release to patient->Automatic 61590&Blood Performed By: #### C MP #### [address] [address] ALT [Catalytic activity/Vol] 9 U/L Normal 0-34 [facility] Comment on above: Order Comment: Pleas e include TIBC. Release to patient->Automatic 47887&Blood Performed By: #### C MP #### [address] [address] AST [Catalytic activity/Vol] 21 U/L Normal 0-31 [facility] Comment on above: Order Comment: Pleas e include TIBC. Release to patient->Automatic 86708&Blood Performed By: #### C MP #### [address] [address] Bili,Total 0.2 mg/dL Normal 0.0-1.0 [facility] Comment on above: Order Comment: Pleas e include TIBC. Release to patient->Automatic 05789&Blood Performed By: #### C MP #### [address] [address] Calcium [Mass/Vol] 9.5 mg/dL Normal 7.6-11.0 [facility] Comment on above: Order Comment: Pleas e include TIBC. Release to patient->Automatic 94352&Blood Performed By: #### C MP #### [address] [address] CO2 [Moles/Vol] 21.9 mmol/L Low 22.0-29.0 [facility] Comment on above: Order Comment: Pleas e include TIBC. Release to patient->Automatic 27722&Blood Performed By: #### C MP #### [address] [address] Creatinine [Mass/Vol] 0.66 mg/dL Normal 0.50-1.00 [facility] Comment on above: Order Comment: Pleas e include TIBC. Release to patient->Automatic 94854&Blood Performed By: #### C MP #### [address] [address] Chloride [Moles/Vol] 104 mmol/L Normal 96-108 [facility] Comment on above: Order Comment: Pleas e include TIBC. Release to patient->Automatic 78437&Blood Performed By: #### C MP #### [address] [address] Potassium [Moles/Vol] 3.9 mmol/L Normal 3.3-5.1 [facility] Comment on above: Order Comment: Pleas e include TIBC. Release to patient->Automatic 83125&Blood Performed By: #### C MP #### [address] [address] Sodium [Moles/Vol] 138 mmol/L Normal 133-145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 02-19-2025 End: 02-19-2025 Patient encounter procedure 02/19/2025 10:30 AM EDT Appointment [facility] [address] [phone] Stacey Crouch MD [address] [place] [address] [facility] Start: 01-22-2025 End: 01-22-2025 Patient encounter procedure 01/22/2025 10:30 AM EDT Appointment [facility] [address] [phone] Stacey Crouch MD [address] [facility] [address] [place] [address] [facility] Start: 12-25-2024 End: 12-25-2024 Patient encounter procedure 12/25/2024 11:00 AM EDT Appointment [facility] [address] [phone] Stacey Crouch MD [address] [facility] [address] [place] [address] [facility] Start: 2024 Influenza vaccination [facility] Start: 2024 RSV Immunization for Adults (1 - Risk 1-dose series) RSV Immunization for Adults (1 - Risk 1-dose series) [facility] Start: 12-05-2024 End: 12-05-2024 Patient encounter procedure 12/05/2024 8:15 AM EDT Routine [facility] - [address] [phone] Eli Barrera, DO [address] [place] [address] [facility] [place] [facility] Start: 11-27-2024 End: 11-27-2024 Patient encounter procedure 11/27/2024 11:00 AM EDT Appointment [facility] [address] [phone] Stacey Crouch MD [address] [facility] [address] [place] [address] [facility] Start: 11-08-2024 End: 11-08-2024 Patient encounter procedure 11/08/2024 12:45 PM EDT Routine [facility] [address] [place] [address] Modesto Cates, DO [address] [place] [address] [facility] Start: 10-30-2024 End: 10-30-2024 Patient encounter procedure 10/30/2024 10:30 AM EDT Appointment [facility] [address] [place] [phone] Stacey Crouch MD [address] [place] [address] [facility] Start: 10-24-2024 End: 12-11-2024 CBC panel - Blood by Automated count CBC Lab Routine care, first in second trimester Iron deficiency anemia, unspecified iron deficiency anemia type Expected: 10/24/2024 (Approximate), Expires: 12/11/2024 [facility] Comment on above: Expected: 10/24/2024 (Approximate), Expires: 12/11/2024 Start: 10-24-2024 End: 12-11-2024 Glucose Challenge Screen, Glucose Challenge Screen, Lab Routine care, first in second trimester Expected: 10/24/2024 (Approximate), Expires: 12/11/2024 [facility] Work Phone: Comment on above: Expected: 10/24/2024 (Approximate), Expires: 12/11/2024 Start: 10-10-2024 End: 10-10-2024 Patient encounter procedure 10/10/2024 8:40 AM EDT Routine [facility] [place] [address] [place] [phone] Modesto Cates DO [address], [place] [id number] [facility] Start: 09-26-2024 [facility] Start: 09-12-2024 End: 09-12-2024 Patient encounter procedure [facility] Start: 09-12-2024 Subsequent hospital visit by physician 09/12/2024 9:00 AM EDT Hospital Encounter [facility] [address] [place] [phone] [facility] Start: 08-14-2024 End: 08-14-2024 Patient encounter procedure 08/14/2024 8:30 AM EDT Routine [facility] [place] [facility] [address] [place] [phone] Karo Delcid DO [address] [place] [address] [place] [address] [facility] Start: 08-10-2024 End: 08-10-2025 US for US OB 14+ weeks anatomy scan Imaging Routine Encounter for supervision of normal first , first trimester Expected: 08/10/2024, Expires: 08/10/2025 [facility] Work Phone: Comment on above: Expected: 08/10/2024 , Expires: 08/10/2025 Start: 08-10-2024 End: 08-10-2024 Patient encounter procedure 08/10/2024 12:30 PM EDT Routine [facility] [address] [place] [phone] [facility] Start: 07-19-2024 End: 07-19-2024 ambulatory 07/19/2024 9:00 AM EDT Initial [facility] [address] [place] [phone] [facility] Start: 07-17-2024 End: 07-17-2024 Patient encounter procedure 07/17/2024 8:40 AM EDT Routine [facility] [place] [facility] [address] [place] [phone] Kaitlin Aiken DO [address] [place] [address] [place] [address] [facility] Start: 06-29-2024 End: 06-29-2024 Patient encounter procedure [facility] Start: 06-29-2024 Subsequent hospital visit by physician 06/29/2024 12:30 PM EST Hospital Encounter [facility] [address] [place] [phone] Karrie Velásquez DO [address] [facility] [place] [address] [place] [address] [facility] Start: 06-25-2024 End: 06-25-2024 Patient encounter procedure 06/25/2024 2:50 PM EST Office Visit [facility] [place] [address] [place] [address] Lex Cortez MD [address] [place], [place] [id number] [facility] Start: 06-14-2024 End: 06-14-2025 US for US OB less than 14 weeks early Imaging Routine Threatened Expected: 06/14/2024, Expires: 06/14/2025 [facility] Work Phone: Comment on above: Expected: 06/14/2024 , Expires: 06/14/2025 Start: 12-25-2023 COVID-19 Vaccine ( season) COVID-19 Vaccine ( season) [facility] Start: 12-25-2023 Influenza vaccination Influenza Vacc ine (#1) [facility] Start: 07-16-2023 [facility] Start: 2022 COVID-19 (2022- 4 season) COVID-19 ( season) [facility] Start: 2022 FLU (#1) FLU (#1) [facility] Start: 2022 Hearing Screening Hearing Screening [facility] Start: 2022 Hepatitis C screening Hepatitis C Sc reening [facility] Start: 07-14-2022 Well Visit Well Visit [facility] Start: 01-14-2022 Meningococcal B Vacc ine (2 of 2 - Bexsero SCDM 2-dose series) Meningococcal B Vaccine (2 of 2 - Bexsero SCDM 2-dose series) [facility] Start: 08-11-2021 MenB (2 of 2 - MenB 2-Dose Series Bexsero) MenB (2 of 2 - MenB 2-Dose Series Bexsero) [facility] Start: 12-25-2019 Vision Screening Vision Screening [facility] Start: 2016 Depression Screening Depression Scre ening [facility] Start: 08-23-2005 Application of denta l fluoride varnish Fluoride Varnish [facility] Start: 2004 HIV screening HIV Screening [facility] End: 05-27-2024 Bacteria identified in Urine by Culture [facility] Work Phone: Comment on above: STAT (Lab) for 1 Occ urrences starting 05/27/2024 until 05/27/2024 Once for 1 Occurrenc es starting 05/27/2024 until 05/27/2024 End: 06-15-2024 Bacteria identified in Urine by Culture [facility] Work Phone: Comment on above: Once (Lab) for 1 Occ urrences starting 06/15/2024 until 06/15/2024 Once for 1 Occurrenc es starting 06/15/2024 until 06/15/2024 Bacteria identified in Urine by Culture Urine culture (clean catch) Microbiology Routine Recurrent UTI (urinary tract infection) complicating , first trimester 06/25/2024 3:33 PM [employer] [facility] Work Phone: Bacteria identified in Urine by Culture Urine culture Microbiology Routine Recurrent UTI (urinary tract infection) complicating , first trimester 06/29/2024 1:54 PM [employer] [facility] Work Phone: Bacteria identified in Urine by Culture Urine culture Microbiology Routine Dysuria 08/10/2024 2:53 PM EDT [facility] Bacteria identified in Urine by Culture Urine culture Microbiology Routine care, first in second trimester Recurrent UTI (urinary tract infection) complicating , first trimester 09/12/2024 11:09 AM EDT [facility] ECG 12 lead ECG 12 lead CV E CG STAT 08/06/2024 12:55 PM EDT [facility] Hemoglobinopathy evaluation Hemoglobinopathy evaluation Lab Routine Amenorrhea 06/29/2024 1:54 PM EST [facility] Horizon 14 (Morel-Ethn ic Standard) Horizon 14 (Morel-Ethnic Standard) Lab Routine Encounter for supervision in primigravida, antepartum 07/17/2024 9:03 AM EDT [facility] Work Phone: [facility] TEST Lab Routine Encounter for supervision in primigravida, antepartum 07/17/2024 9:03 AM EDT [facility] Patient Education [facility] Work Phone: Patient referral [facility] Work Phone: End: 08-06-2024 POCT Ketone, urine manually resulted [facility] Work Phone: Comment on above: Once (Lab) for 1 Occ urrences starting 08/06/2024 until 08/06/2024 End: 07-22-2023 Stool Enteric culture (Lab Collect) [facility] Work Phone: Comment on above: 1 Occurrences starti ng 07/22/2023 until 07/22/2023 End: 07-22-2023 Stool Giardia and Cryptosporidium Screen [facility] Comment on above: 1 Occurrences starti ng 07/22/2023 until 07/22/2023 End: 07-20-2023 Transglutaminase IgA [facility] Work Phone: Comment on above: 1 Occurrences starti ng 07/20/2023 until 07/20/2023 End: 05-27-2024 Urine Hold Cup Urine Hold Cup Lab Timed Once for 1 Occurrences starting 05/27/2024 until 05/27/2024 [facility] Comment on above: Once for 1 Occurrenc es starting 05/27/2024 until 05/27/2024 End: 06-15-2024 Urine Hold Cup Urine Hold Cup Lab Timed Once for 1 Occurrences starting 06/15/2024 until 06/15/2024 [facility] Comment on above: Once for 1 Occurrenc es starting 06/15/2024 until 06/15/2024 End: 06-29-2024 US for [facility] [employer] Work Phone: Comment on above: Once for 1 Occurrenc es starting 06/29/2024 until 06/29/2024 End: 10-30-2024 US for [facility] Work Phone: Comment on above: Once for 1 Occurrenc es starting 10/30/2024 until 10/30/2024 Immunizations Immunization Date Immunization Notes Care Provider Fa louie 07-14-2021 influenza, injectabl e, quadrivalent, preservative free Jeremy Vásquez MD Work Phone: [facility] 07-14-2021 meningococcal B vacc ine, recombinant, OMV, adjuvanted Jeremy Vásquez MD Work Phone: [facility] 07-14-2021 meningococcal polysaccharide (groups A, C, Y and W-135) diphtheria toxoid conjugate vaccine (MCV4P) Jeremy Vásquez MD Work Phone: [facility] 07-14-2021 influenza virus vacc ine, unspecified formulation Ovi Delacruz MD Work Phone: [facility] 04-08-2020 influenza, injectabl e, quadrivalent, preservative free Jeremy Vásquez MD Work Phone: [facility] 03-19-2019 influenza, injectabl e, quadrivalent, preservative free Jeremy Vásquez MD Work Phone: [facility] 03-09-2018 hepatitis A vaccine, pediatric/adolescent dosage, 2 dose schedule Jeremy Vásuqez MD Work Phone: [facility] 03-09-2018 influenza, injectabl e, quadrivalent, preservative free Jeremy Vásquez MD Work Phone: [facility] 01-17-2017 Human Papillomavirus 9-valent vaccine Jeremy Vásquez MD Work Phone: [facility] 01-17-2017 influenza, injectabl e, quadrivalent, preservative free Jeremy Vásquez MD Work Phone: [facility] 01-13-2016 Human Papillomavirus 9-valent vaccine Jeremy Vásquez MD Work Phone: [facility] 01-13-2016 meningococcal polysaccharide (groups A, C, Y and W-135) diphtheria toxoid conjugate vaccine (MCV4P) Jeremy Vásquez MD Work Phone: [facility] 01-13-2016 tetanus toxoid, redu nadja diphtheria toxoid, and acellular pertussis vaccine, adsorbed Jeremy Vásquez MD Work Phone: [facility] 04-10-2013 influenza, injectabl e, quadrivalent, preservative free Jeremy Vásquez MD Work Phone: [facility] 01-28-2012 influenza virus vacc ine, split virus (incl. purified surface antigen) Jeremy Vásquez MD Work Phone: [facility] 09-25-2009 diphtheria, tetanus toxoids and acellular pertussis vaccine Jeremy Vásquez MD Work Phone: [facility] 09-25-2009 measles, mumps, rube lla, and varicella virus vaccine Jeremy Vásquez MD Work Phone: [facility] 09-25-2009 poliovirus vaccine, inactivated Jeremy Vásquez MD Work Phone: [facility] 03-14-2007 influenza virus vacc ine, unspecified formulation Jeremy Vásquez MD Work Phone: [facility] 09-28-2006 hepatitis A vaccine, adult dosage Jeremy Vásquez MD Work Phone: [facility] 04-15-2006 diphtheria, tetanus toxoids and acellular pertussis vaccine Jeremy Vásquez MD Work Phone: [facility] 04-15-2006 hepatitis A vaccine, adult dosage Jeremy Vásquez MD Work Phone: [facility] 04-15-2006 influenza virus vacc ine, unspecified formulation Jeremy Vásquez MD Work Phone: [facility] 04-15-2006 pneumococcal conjuga te vaccine, 7 valent Jeremy Vásquez MD Work Phone: [facility] 01-10-2006 haemophilus influenz ae type b vaccine, PRP-T conjugate Jeremy Vásquez MD Work Phone: [facility] 01-10-2006 measles, mumps and rubella virus vaccine Jeremy Vásquez MD Work Phone: [facility] 01-10-2006 varicella virus vaccine Jeremy Vásquez MD Work Phone: [facility] 09-29-2005 diphtheria, tetanus toxoids and acellular pertussis vaccine Jeremy Vásquez MD Work Phone: [facility] 09-29-2005 haemophilus influenz ae type b vaccine, PRP-T conjugate Jeremy Vásquez MD Work Phone: [facility] 09-29-2005 hepatitis B vaccine, pediatric or pediatric/adolescent dosage Jeremy Vásquez MD Work Phone: [facility] 09-29-2005 pneumococcal conjuga te vaccine, 7 valent Jeremy Vásquez MD Work Phone: [facility] 09-29-2005 poliovirus vaccine, inactivated Jeremy Vásquez MD Work Phone: [facility] 06-29-2005 diphtheria, tetanus toxoids and acellular pertussis vaccine Jeremy Vásquez MD Work Phone: [facility] 06-29-2005 haemophilus influenz ae type b vaccine, PRP-T conjugate Jeremy Vásquez MD Work Phone: [facility] 06-29-2005 hepatitis B vaccine, pediatric or pediatric/adolescent dosage Jeremy Vásquez MD Work Phone: [facility] 06-29-2005 pneumococcal conjuga te vaccine, 7 valent Jeremy Vásquez MD Work Phone: [facility] 06-29-2005 poliovirus vaccine, inactivated Jeremy Vásquez MD Work Phone: [facility] 05-16-2005 influenza virus vacc ine, unspecified formulation Jeremy Vásquez MD Work Phone: [facility] 03-08-2005 diphtheria, tetanus toxoids and acellular pertussis vaccine Jeremy Vásquez MD Work Phone: [facility] 03-08-2005 haemophilus influenz ae type b vaccine, PRP-T conjugate Jeremy Vásquez MD Work Phone: [facility] 03-08-2005 hepatitis B vaccine, pediatric or pediatric/adolescent dosage Jeremy Vásquez MD Work Phone: [facility] 03-08-2005 pneumococcal conjuga te vaccine, 7 valent Jeremy Vásquez MD Work Phone: [facility] 03-08-2005 poliovirus vaccine, inactivated Jeremy Vásquez MD Work Phone: [facility] 2004 hepatitis B vaccine, pediatric or pediatric/adolescent dosage Jeremy Vásquez MD Work Phone: [facility] Payers Date Payer Category Payer Medicaid [id number] 2024 Self-pay [id number] 2022 Medicaid HMO [id number] 2022 Unknown [id number] 2021 Unknown [facility] [id number] 2021-Present [address] [place] [address] [id number] 2004 Unknown [id number] 2004 Unknown [id number] 2004 Unknown [id number] 2004 Unknown [id number] 1979 Unknown [id number] 1979 Unknown [id number] Unknown [facility] [id number] Unknown [id number] Unknown [id number] Social History Date Type Detail Facility Start: 01-14-2022 End: 07-16-2023 Tobacco smoking status AZIS Unknown if ever smoked [facility] Start: 2005 Sex Assigned At Female W [facility] Start: 04-06-2022 End: 07-19-2024 Tobacco smoking status AZIS Never smoked tobacco [facility] History of tobacco use Passive smoker [facility] Start: 04-06-2022 Tobacco use and exposure User of smokeless tobacco [facility] Start: 07-20-2023 Alcoholic beverage intake Not Asked [facility] Start: 07-20-2023 End: 07-19-2024 History of Social function [facility] Start: 07-20-2023 End: 07-19-2024 Tobacco use panel [facility] Adolescent depressio n screening assessment 3 [facility] Start: 2004 Sex assigned at Not on file [facility] Start: 05-06-2024 End: 07-19-2024 Tobacco use and exposure Smokeless tobacco non-user [facility] Start: 05-06-2024 End: 07-17-2024 Alcoholic beverage intake Lifetime non-drinker (finding) [facility] How often to you hav e a drink containing alcohol? Never [facility] Start: 05-06-2024 Sex Female (finding) [facility] Has the [employer]ma, [employer], or water Opt[employer]curity threatened to shut off services in your home in past 12Mo No [facility] (I/We) worried wheth er (my/our) food would run out before (I/we) got money to buy more. Never true [facility] Start: 08-06-2024 End: 09-12-2024 Alcoholic beverage intake Ex-drinker (finding) [facility] Are you now , , , , never or living with a partner? Never [facility] How hard is it for y ou to pay for the very basics like food, housing, medical care, and heating Not very hard [facility] Do you feel stress - tense, restless, nervous, or anxious, or unable to sleep at night because your mind is troubled all the time - these days [OSQ] To some extent [facility] Start: 07-19-2024 Alcohol Comment socially befor e [facility] Start: 05-23-2024 [facility] Start: 09-26-2024 [facility]finding[facility] NEGATED: Highlighted row [facility] Work Phone: NEGATED: Highlighted row [facility] Goals Date Patient Goal Desired Activity /State Personal health goal Functional Status Date Assessment Result Facility 09-04-2024 Total score [AUDIT-C] 0 09/05/19 25 1:36 PM EDT Ami Palacios, YUDI [facility] Mental Status Date Assessment Result Facility 09-26-2024 Cognitive function Level Of Cons ciousness Awake;Alert;Appropriate;Follow s Commands [facility] Work Phone: 07-16-2023 Cognitive function Level Of Cons ciousness Awake;Alert;Appropriate;Follow s Commands [facility] Work Phone: 12-08-2022 Cognitive function Level Of Cons ciousness Awake;Alert;Appropriate;Follow s Commands [facility] Work Phone: Clinical Notes 04-29-2023 to 11-08-2024 Assessment & Plan Note - Modesto Cates DO - 11/08/2024 12:56 PM EDTAssessment & Plan Note - Modesto Cates DO - 11/08/2024 12:56 PM EDTJenndale Alfonso, JOCELYNE - 11/08/2024 12:45 PM EDTAttachments Note Date & Type Note Facility 11-08-2024 Evaluation + Plan note Associated Problem(s): Iron deficiency anemia Cbc today [facility] 11-08-2024 Miscellaneous Notes Associated Problem(s): Iron deficiency anemia Cbc today Associated Problem(s): Hx of anorexia nervosa Patient has been doing Okay with diet Reassurance provided Weight today ___ Associated Problem(s): Circumvallate placenta in second trimester 10/30 US: Est. FW: 899 gm 2 lb 66 % AC 86% Associated Problem(s): , supervision of first Doing well with no OB complaints Will get Gtt done today Right SI pain is better but now having upper back pain due to excessive strain at work Plan to get tens unit from [employer] Declines PT at this time FHR 130 FH 26 10/30 US reviewed with patient, Est. 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 The patient: DECLINED Pt had blood drawn from her left arm. Pt tolerated well. (Bright and purple tubes) documented in this encounter [facility] 11-08-2024 Instructions Modesto Cates DO - 11/08/2024 12:45 PM EDT Your Second Trimester: Care Instructions [...] in your urine. documented in this encounter [facility] 11-07-2024 Evaluation + Plan note Associated Problem(s): Hx of anorexia nervosa Patient has been doing Okay with diet Reassurance provided Weight today ___ [facility] 11-07-2024 Evaluation + Plan note Associated Problem(s): Circumvallate placenta in second trimester 10/30 US: Est. FW: 899 gm 2 lb 66 % AC 86% [facility] 11-07-2024 Evaluation + Plan note Associated Problem(s): , supervision of first Doing well with no OB complaints Will get Gtt done today Right SI pain is better but now having upper back pain due to excessive strain at work Plan to get tens unit from [employer] Declines PT at this time FHR 130 FH 26 10/30 US reviewed with patient, Est. FW: 899 gm 2 lb 66 % AC 86% Continue PNV RTO 4 wks [facility] 10-30-2024 History of Presen t illness Narrative Patient presents for obstetrical ultrasound 24w6d for Nurse visit Sumit denies Headache Right upper quadrant pain Vision changes Chest pain Shortness of breath Vaginal bleeding Leaking of fluid Contractions LMP 05/09/2024 18 y.o. with no concerns today Sumit was instructed to keep her scheduled visit documented in this encounter [facility] 10-10-2024 Evaluation + Plan note Associated Problem(s): Hx of anorexia nervosa Discussed healthy eating in No longer in that toxic relationship [facility] 10-10-2024 Miscellaneous Notes Associated Problem(s): Hx of anorexia nervosa Discussed healthy eating in No longer in that toxic relationship Associated Problem(s): Circumvallate placenta in second trimester Discussed with patient what circumvallate placenta is Associated Problem(s): , supervision of first Doing well no Ob complaints Right SI pain and tenderness on palpation Discussed physiology and conservative measures Recommended Tylenol and ambulatory care nurse Tens unit sent to pharmacy, patient to order on [employer] if not covered by insurance and too expensive Continue PNV Discussed healthy diet documented in this encounter [facility] 10-10-2024 Evaluation + Plan note Associated Problem(s): Circumvallate placenta in second trimester Discussed with patient what circumvallate placenta is [facility] 10-10-2024 Evaluation + Plan note Associated Problem(s): , supervision of first Doing well no Ob complaints Right SI pain and tenderness on palpation Discussed physiology and conservative measures Recommended Tylenol and ambulatory care nurse Tens unit sent to pharmacy, patient to order on [employer] if not covered by insurance and too expensive Continue PNV Discussed healthy diet [facility] 10-10-2024 History of Presen t illness Narrative 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 Assessment and Plan: , supervision of first Doing well no Ob complaints Right SI pain and tenderness on palpation Discussed physiology and conservative measures Recommended Tylenol and ambulatory care nurse Tens unit sent to pharmacy, patient to order on [employer] if not covered by insurance and too expensive Continue PNV Discussed healthy diet Circumvallate placenta in second trimester Discussed with patient what circumvallate placenta is Hx of anorexia nervosa Discussed healthy eating in No longer in that toxic relationship Chief Complaint Patient presents with Routine Visit 18 y.o. yo at 22w0d Here today for MOHIT No acute complaints. Denies DFM/VB/CTX/LOF ROS: No pelvic pain PE: Vitals: 10/10/24 0846 BP: 107/71 Pulse: 102 Body mass index is 19.4 kg/m . PE: Gen: NAD, A&Ox3 HEENT: NC/AT, EOMI Abd: nontender, uterus palpable on exam Skin: warm/dry BLE: without edema, non-tender Follow up in about 4 weeks (around 11/07/2024) for Routine OB, FU w/[facility]. Cosigned by Lynda Neal MD at 10/10/2024 1:15 PM EDT Associated attestation - Lynda Neal MD - 10/10/2024 1:15 PM EDT [facility]: This patient was seen in [facility] by the resident. I reviewed and agree with the care provided by the resident during or immediately following the visit including the patient's medical history, the resident's finding in the physical exam, patient's diagnosis and treatment plan. documented in this encounter [facility] 10-10-2024 Instructions Modesto Cates DO - 10/10/2024 8:40 AM EDT Your Second Trimester: Care Instructions [...] in your urine. documented in this encounter [facility] 09-12-2024 History of Presen t illness Narrative [...] Neal MD - 09/12/2024 11:23 AM EDT [facility]: This patient was seen in the [facility] by the resident. I reviewed and agree with the care provided by the resident during or immediately following the visit including the patient's medical history, the resident's finding in the physical exam, patient's diagnosis and treatment plan. 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 documented in this encounter [facility] 09-12-2024 Instructions Aurea Rodriguez DO - 09/12/2024 [...] in your urine. documented in this encounter [facility] 09-10-2024 Evaluation + Plan note Associated Problem(s): Recurrent UTI (urinary tract infection) complicating , first trimester Negative urine culture / Repeat UA and culture today as she feels like she might be having some UTI symptoms and also reports history of kidney stones [facility] 09-10-2024 Evaluation + Plan note Associated Problem(s): Iron deficiency anemia rCBC ordered for 24wk [facility] 09-10-2024 Miscellaneous Notes Associated Problem(s): Recurrent UTI (urinary tract infection) complicating , first trimester Negative urine culture / Repeat UA and culture today as she [...] continued cessation encouraged documented in this encounter [facility] 09-10-2024 Evaluation + Plan note Associated Problem(s): , supervision of first Doing well, No OB complaints BP normotensive FHR: 150s Anatomy US today, read pending Reviewed triage precautions GTT and rCBC ordered for 24wk [facility] 09-10-2024 Evaluation + Plan note Associated Problem(s): Vaping nicotine dependence, tobacco product Patient states she is not using any type of nicotine product at this time she has slowly stopped using the patches continued cessation encouraged [facility] 09-05-2024 Emergency department Note Discharge instructions reviewed with pt and she had no further questions. Pt walked out with a steady gait observed and no distress noted. [facility] 09-05-2024 Emergency department Note Discharge instructions reviewed with pt and she had no further questions. Pt walked out with a steady gait observed and no distress noted. Patient and significant other exited [facility] ED for an ED to ED transfer to [facility] so that patient can get the ordered ultrasound. Patient IV in place upon leaving [facility] as per provider permission. Patient verbalized understanding [...] is alert. Psychiatric: Behavior: Behavior normal. SCREENINGS [facility] Coma Scale Best Eye Response: Spontaneous Best [...] as of 09/05/24 0314 TueSeptember 04, 2024 1341 US OB less than 14 weeks early (06/29/24 1232) Prior medical records were reviewed: Ordered by DIGITAL COMPOSER IUP [NM] 1342 Urine culture (08/11/24 1125) [...] Calcium oxalate calculus DISPOSITION/PLAN DISPOSITION Transfer To [facility] 09/04/2024 06:41:20 PM To [facility] emergency department for renal retroperitoneal ultrasound to [...] MD (electronically signed) Ovi Delacruz MD 09/04/24 2983 [1] Patient Active Problem List Diagnosis Recurrent [...] reports having diarrhea. documented in this encounter [facility] 09-05-2024 Hospital Discharg erasto Dickey MD - 09/05/2024 3:21 AM EDT You were diagnosed with a kidney stone, please take tylenol as needed for pain. You will also be sent home with a referral to Urology, please call and make an appointment. You were also diagnosed with a Uti and bacterial vaginosis, please olive picker antibiotics from your pharmacy and take as prescribed. You were also diagnosed with nicki vaginitis, a yeast infection, please use antifungal cream and apply as prescribed. Please follow up with your PCP and your OBGYN within the next 1 week. If Symptoms worsen, please return to ER. The following attachments cannot be sent through Care Everywhere.Kidney Stone, Adult ED ([place]jib[place])documented in this encounter [facility] 09-04-2024 Emergency department Note Patient and significant other exited [facility] ED for an ED to ED transfer to [facility] so that patient can get the ordered ultrasound. Patient IV in place upon leaving [facility] as per provider permission. Patient verbalized understanding of instructions and departed without incident. [facility] 09-04-2024 Emergency department Note Report called to Charge nurse Yin RN for ED to ED transfer. Pt traveling by private car. [facility] 09-04-2024 Emergency department Note heart tones assessed 153 bpm. [facility] 09-04-2024 Emergency department Triage note Pt ambulatory [...] denies any dysuria. Pt reports having diarrhea. [facility] 09-04-2024 Physician Emergency department Note EMERGENCY DEPARTMENT [...] Response: Oriented Best Motor Response: Follows commands [place] Coma Scale Score: 15 Medical decision making [...] in time range) ED Course as of 09/05/24313September 04, 2024 1341 US OB less than 14 weeks early (06/29/24 1232) Prior medical records were reviewed: Ordered by DIGITAL COMPOSER IUP [NM] 1342 Urine culture (08/11/24 1125) Prior medical records were reviewed: normal [NM] 1342 Chlamydia/Gonorrhea (06/29/24 1721) Prior medical records were reviewed:ordered by ob, normal [NM] 1342 Trichomonas vaginalis PCR (06/29/24 1656) Prior medical records were reviewed: ordered by ob normal [NM] ED Course User Index [NM] Ovi Delacruz MD Diagnoses as of 09/05/24313 Acute cystitis with hematuria Calcium oxalate calculus [...] Calcium oxalate calculus DISPOSITION/PLAN DISPOSITION Transfer To [facility] 09/04/2024 06:41:20 PM To [facility] emergency department for renal retroperitoneal ultrasound to [...] MD (electronically signed) Ovi Delacruz MD 09/04/24 6917 [1] Patient Active Problem List Diagnosis Recurrent UTI (urinary tract infection) complicating , first trimester Iron deficiency anemia , supervision of first Vaping nicotine dependence, tobacco product [2] Social History Tobacco Use Smoking status: Never Passive exposure: Current (education given) Smokeless tobacco: Never Vaping Use Vaping status: Every Day Substance Use Topics Alcohol use: Not Currently Comment: socially before Drug use: Never [facility] 08-10-2024 Evaluation + Plan note Associated Problem(s): Iron deficiency anemia Hgb 11.0 on NOB labs, plan to repeat around 24 weeks. [facility] 08-10-2024 Miscellaneous Notes Associated Problem(s): Iron deficiency [...] Anatomy scan ordered and message sent to outsole scheduler. Having a boy. Complaining of dysuria today, she had a E coli UTI in May which was treated with Macrobid. Urine culture sent today. Would like work restrictions as she works at [employer]. Letter in chart. documented in this encounter [facility] 08-10-2024 Evaluation + Plan note Associated Problem(s): , supervision of first Patient doing well, having some mild nausea but does not want any stronger medications. She had a dating US but has not gotten NT, will not be able to get her in by 14 weeks. Anatomy scan ordered and message sent to outsole scheduler. Having a boy. Complaining of dysuria today, she had a E coli UTI in May which was treated with Macrobid. Urine culture sent today. Would like work restrictions as she works at [employer]. Letter in chart. [facility] 08-10-2024 History of Presen t illness Narrative Assessment and Plan: , supervision of first Patient doing well, having some mild nausea but does not want any stronger medications. She had a dating US but has not gotten NT, will not be able to get her in by 14 weeks. Anatomy scan ordered and message sent to outsole scheduler. Having a boy. Complaining of dysuria today, she had a E coli UTI in May which was treated with Macrobid. Urine culture sent today. Would like work restrictions as she works at [facility]. Letter in chart. Iron deficiency anemia Hgb [...] Ferrara MD - 08/10/2024 3:44 PM EDT [facility]: This patient was seen in the [facility] by the resident. I reviewed and agree with the care provided by the resident during or immediately following the visit including the patient's medical history, the resident's finding in the physical exam, patient's diagnosis and treatment plan. Sumit Green was seen in the Obstetrics ED. Please see chart note for details. documented in this encounter [facility] 08-10-2024 Instructions Ki Breen DO - 08/10/2024 [...] in your urine. documented in this encounter [facility] 08-06-2024 Nurse Note Patient educated on return precautions and discharged home at this time. Pt denies questions [facility] 08-06-2024 Nurse Note Patient educated on return precautions and discharged home at this time. Pt denies questions documented in this encounter [facility] 08-06-2024 Hospital Discharg e instructions Petra Machuca DO - 08/06/2024 1:20 PM EDT Follow up appointment with your doctor/train conductor - Keep next scheduled appointment Activity - Normal Activity Call your doctor/train conductor if you have: - leaking fluid - [...] visit on 08/06/24 . PETRA MACHUCA DO [facility] documented in this encounter [facility] 08-06-2024 History of Presen t illness Narrative [...] 1 tablet by mouth daily. 06/16/24 Katia Soliman, DO pyridoxine (Vitamin B-6) 25 MG tablet [...] with in house Triage Attending Dr. Coughlin SAP DIRECTOR PROVIDER: Dr. Machuca DISPOSITION: Discharge to Home [...] next 2-3 days. documented in this encounter [facility] 08-06-2024 Note Attempted to call efrain swanson to discuss her syncopal episodes and recommend evaluation in OB Triage. She did not respond, returned message on Wibiyahart. Reached out to [facility] to get patient scheduled for MOHIT early this week. [facility] 08-06-2024 Telephone encounter Note Attempted to call patient to discuss her syncopal episodes and recommend evaluation in OB Triage. She did not respond, returned message on Wibiyahart. Reached out to [facility] to get patient scheduled for MOHIT early this week. [facility] 08-06-2024 Miscellaneous Notes Attempted to call patient to discuss her syncopal episodes and recommend evaluation in OB Triage. She did not respond, returned message on [employer]ib[employer]ahart. Reached out to [facility] to get patient scheduled for MOHIT early this week. documented in this encounter [facility] 07-17-2024 Evaluation + Plan note Associated Problem(s): Vaping nicotine dependence, tobacco product Continue use of nicotine patches Counseling provided and cessation encouraged [facility] 07-17-2024 Note Continue use of иван elvia patches Counseling provided and cessation encouraged [facility] 07-17-2024 Miscellaneous Notes Associated Problem(s): Vaping nicotine dependence, tobacco product Continue use of nicotine patches Counseling provided and cessation encouraged Associated Problem(s): , supervision of first Patient doing well, denies OB sx Reviewed TVUS and NOB labs NIPT and Horizon ordered today Continue routine OB care Discussed return precautions documented in this encounter [facility] 07-17-2024 Evaluation + Plan note Associated Problem(s): , supervision of first Patient doing well, denies OB sx Reviewed TVUS and NOB labs NIPT and Horizon ordered today Continue routine OB care Discussed return precautions [facility] 07-17-2024 History of Presen t illness Narrative [...] No Drug Use: No 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 Kaitlin Aiken DO 07/17/2024, 9:10 AM Cosigned by Lynda Neal MD at 07/17/2024 3:29 PM EDT Associated attestation - Lynda Neal MD - 07/17/2024 3:29 PM EDT [facility]: This patient was seen in the [facility] by the resident. I reviewed and agree with the care provided by the resident during or immediately following the visit including the patient's medical history, the resident's finding in the physical exam, patient's diagnosis and treatment plan. Pt had Joselyn drawn from the right arm. Pt tolerated well. documented in this encounter [facility] 07-17-2024 Instructions Kaitlin Aiken DO - 07/17/2024 [...] down or quit! Ask your doctor or train conductor about ways to quit. Markle with morning sickness Sip small amounts of [...] it easier to eat Bananas Rice Applesauce [place] Try nausea wristbands. These help some women [...] Remedy: Hemorrhoids Phenylephrine/mineral oil/petrolatum (Preparation H ) Witdalia sumaya (Tucks pads or ointment) Type of Remedy: Sleep Diphenhydramine (Unisom SleepGels , Benadryl) *Please note: No drug can be considered 100% safe to use during . documented in this encounter [facility] 06-29-2024 History of Presen t illness Narrative [...] She was recently seen on 06/25 in [facility] and endorses continued dysuria with a Ucx positive for [id number] CFU of E coli and per patient [...] daily, trying to cut back. Works in [employer] and has been given appropriate accomodation for lifiting OB History Para Term AB Living 1 SAB IAB Ectopic Multiple Live Births # Outcome Date GA Lbr Morales/2nd Weight Sex Type Anes PTL Lv 1 Current No past medical history on file. CUT IN WORKER is required. Please contact your mysql database administrator to configure this SmartLink. No family [...] in about 2 weeks (around 07/13/2024) for ROB. Gloria Ohara MD 06/29/2024 12:06 PM Cosigned by Ryan Ferrara MD at 06/29/2024 2:14 PM EST Associated attestation - Ryan Ferrara MD - 06/29/2024 2:14 PM EST [facility]: This patient was seen in the [facility] by the resident. I reviewed and agree with the care provided by the resident during or immediately following the visit including the patient's medical history, the resident's finding in the physical exam, patient's diagnosis and treatment plan. VITALS- BP-100/68 HR-76 TEMP-98.2 F WEIGHT-105 LBS A pre sales technical engineer was offered to be present during her exam. The patient: DECLINED documented in this encounter [facility] 06-29-2024 Instructions Gloria Ohara MD - 06/29/2024 [...] use during . documented in this encounter [facility] 06-26-2024 History of Presen t illness Narrative Based on Urine Culture Results showing growth of 50-90K E. Coli, will send in prescription for PO Macrobid 100 mg BID as this is the most safe in related UTI's. documented in this encounter [facility] 06-26-2024 Evaluation + Plan note Associated Problem(s): [...] Bacteria will decide on best treatment course [facility] 06-26-2024 Miscellaneous Notes Associated Problem(s): Recurrent UTI [...] best treatment course documented in this encounter [facility] 06-26-2024 Miscellaneous Notes Associated Problem(s): Recurrent UTI [...] best treatment course documented in this encounter [facility] 06-25-2024 History of Presen t illness Narrative [...] from the original note were not included. [facility] - [address] [facility] [address] Dept: [phone] Dept Loc: [phone] 06/25/2024 Visit type: inpatient follow up Reason [...] significant past medical history that presented to [facility] ED on 06/14/2024 with lightheadedness and nausea/vomiting [...] stable condition. Patient comes in to the [facility] today for regularly scheduled hospital follow up. [...] : 3 06/26/2024 documented in this encounter [facility] 06-25-2024 History of Presen t illness Narrative [...] from the original note were not included. [facility] - [address] [facility] [address] Dept: [phone] Dept Loc: [phone] 06/25/2024 Visit type: inpatient follow up Reason [...] significant past medical history that presented to [facility] ED on 06/14/2024 with lightheadedness and nausea/vomiting [...] stable condition. Patient comes in to the [facility] today for regularly scheduled hospital follow up. [...] days so urine will be rechecked. Liza Hughes MD documented in this encounter [facility] 06-18-2024 Note Hospital discharge t o home noted. Please see separate patient outreach encounter. [facility] 06-16-2024 Note Internal Medicine: M ed [...] significant past medical history that presented to [facility] ED on 06/14/2024 with lightheadedness and nausea/vomiting [...] Your Medications These medications were sent to [facility] - [place], [place] - [address] [place] [id number] amoxicillin-clavulanate 875-125 MG tablet ferrous sulfate 325 (65 Fe) MG tablet 27-1 MG tablet prochlorperazine 5 MG tablet Notable Medication Changes & Reasoning: - Start vitamins - Start iron supplement - Oral antibiotics with Agumentin BID x 7 days - Compazine prn for nausea Consultants DIGITAL COMPOSER Procedures Performed None Significant Laboratory/Radiographic Data: UA [...] Time Provider Department Center 06/25/2024 2:50 PM Lex Cortez MD [facility] 06/29/2024 12:[address] [facility] [address] 06/29/2024 1:30 PM Gloria Ohara MD [facility] None Items to Address at Followup Visit: - Ensure finish Augmentin 7 day course - establish care appt with IMC afterwards - reassess yeast infection and prescribe terazol if needed - reassess UTI symptoms resolution - follow up on iron deficiency anemia Patient seen & examined on day of discharge. Please refer to note dated on the day of discharge (06/16/2024) for associated attestation, exam, and plan. My personal highlights or additions below noted in Green. [facility] 06-16-2024 Hospital course Narrative Internal Medicine: [...] significant past medical history that presented to [facility] ED on 06/14/2024 with lightheadedness and nausea/vomiting [...] Your Medications These medications were sent to [facility] - [place], [place] - [address] [place] [address] amoxicillin-clavulanate 875-125 MG tablet ferrous sulfate 325 (65 Fe) MG tablet 27-1 MG tablet prochlorperazine 5 MG tablet Notable Medication Changes & Reasoning: - Start vitamins - Start iron supplement - Oral antibiotics with Agumentin BID x 7 days - Compazine prn for nausea Consultants DIGITAL COMPOSER Procedures Performed None Significant Laboratory/Radiographic Data: UA [...] Time Provider Department Center 06/25/2024 2:[address] [facility] 06/29/2024 12:30 PM [facility] [address] [facility] 06/29/2024 1:30 PM Gloria Ohara MD [facility] WO None Items to Address at Followup Visit: - Ensure finish Augmentin 7 day course - establish care appt with IMC afterwards - reassess yeast infection and prescribe terazol if needed - reassess UTI symptoms resolution - follow up on iron deficiency anemia Patient seen & examined on day of discharge. Please refer to note dated on the day of discharge (06/16/2024) for associated attestation, exam, and plan. My personal highlights or additions below noted in Green. 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 Select Recent Labs BMP: Recent Labs 06/14/2413506/15/24 0532 06/16/24 0007 NA 135* 136 135* K 4.0 3.7 4.0 CL 106 110* 110* CO2 22 19* 18* BUN 10 9 10 CREATININE 0.73 0.72 0.63 CALCIUM 8.8 8.6 8.8 LFTs: Recent Labs 06/14/2413506/15/24 0532 06/16/24 0007 AST -- 17 ALT -- PROT -- 6.4 6.5 ALBUMIN -- 3.6 3.8 BILITOT -- 0.3 0.4 BILIRUBINU Negative -- -- ALKPHOS -- 51 53 Glucose: Recent Labs 06/14/24 0136 06/15/24 0532 06/16/24 0007 GLUCOSE 110* 130* 86 Procal: Recent Labs 06/14/24 013 PROCAL 0.03 CBC: Recent Labs 06/14/24 0136 06/15/24 0532 06/16/24 0007 WBC 5.6 5.1 5.9 HGB 10.5* 10.6* 11.0* HCT 30.8* 32.2* 31.9* PLT 290 295 299 MCV 77.6 78.0 76.0* RDW 14.1 14.0 14.4 ABGs: No results for input(s): PHART, MOV4ZTI, PO2ART, QJJ0DNS, SO2ART, E4NIWHSQ in the last 72 hours. Lactic Acid: [...] - Procalcitonin 0.03, (more content not included)... 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 Select Recent Labs BMP: Recent Labs 06/14/2413506/15/24 0506/16/246 NA 135* 136 135* K 4.0 3.7 4.0 CL 106 110* 110* CO2 22 19* 18* BUN 10 9 10 CREATININE 0.73 0.72 0.63 CALCIUM 8.8 8.6 8.8 LFTs: Recent Labs 06/14/2413506/15/24 0506/16/246 AST -- 17 ALT -- PROT -- 6.4 6.5 ALBUMIN -- 3.6 3.8 BILITOT -- 0.3 0.4 BILIRUBINU Negative -- -- ALKPHOS -- 51 53 Glucose: Recent Labs 06/14/2413506/15/24 0532 06/16/246 GLUCOSE 110* 130* 86 Procal: Recent Labs 06/14/24135 PROCAL 0.03 CBC: Recent Labs 06/14/2413506/15/24 0532 06/16/246 WBC 5.6 5.1 5.9 HGB 10.5* 10.6* 11.0* HCT 30.8* 32.2* 31.9* PLT 290 295 299 MCV 77.6 78.0 76.0* RDW 14.1 14.0 14.4 ABGs: No results for input(s): PHART, WOW5FRD, PO2ART, ONH3GPR, SO2ART, Y8ELFXXC in the last 72 hours. Lactic Acid: [...] of Service: 06/16/24) 7AM-5PM: contact resident on [facility] A (find by hovering over attending's name on left side of patient's chart) 5PM-7AM: contact AI3 res Nutrition rescreen completed. Patient referred to the Dietitian. BMI 17.64. Med Team Progress Note Sumit Peter : 2005(18 y.o.) Date: June 15, 2024 [...] normal. Select Recent Labs BMP: Recent Labs 06/14/2413506/15/24 0532 NA 135* 136 K 4.0 3.7 CL 106 110* CO2 22 19* BUN 10 9 CREATININE 0.73 0.72 CALCIUM 8.8 8.6 LFTs: Recent Labs 06/14/2413506/15/24 0532 AST -- 21 ALT -- 25 PROT -- 6.4 ALBUMIN -- 3.6 BILITOT -- 0.3 BILIRUBINU Negative -- ALKPHOS -- 51 Glucose: Recent Labs 06/14/2413506/15/24 0532 GLUCOSE 110* 130* Procal: Recent Labs 06/14/24 0136 PROCAL 0.03 CBC: Recent Labs 06/14/24 0136 06/15/24 0532 WBC 5.6 5.1 HGB 10.5* 10.6* HCT 30.8* 32.2* PLT 290 295 MCV 77.6 78.0 RDW 14.1 14.0 ABGs: No results for input(s): PHART, IUJ4ALL, PO2ART, MBR3PKS, SO2ART, M4XBUSAJ in the last 72 hours. Lactic Acid: [...] of Service: 06/15/24) 7AM-5PM: contact resident on [facility] Med A (find by hovering over attending's name on left side of patient's chart) 5PM-7AM: contact AI3 res documented in this encounter [facility] 06-16-2024 Nurse Note Patients IV removed. This RN asked patient if another IV could be replaced. Patient refused. All risks dicussed with patient. [facility] 06-16-2024 Nurse Note Patients IV removed. This RN asked patient if another IV could be replaced. Patient refused. All risks dicussed with patient. documented in this encounter [facility] 06-15-2024 Plan of care note Problem: Pain [...] monitored and maintained or improved Outcome: Progressing [facility] 06-15-2024 Miscellaneous Notes Problem: Pain - Adult [...] improved Outcome: Progressing documented in this encounter [facility] 06-15-2024 Note Formatting of this n ote might be different from the original. Pt admitted for tx/evaluation of recurrent UTI in . OB note- 6 weeks 1 day. Pyelonephritis- urine culture pending. Vaginitis panel- nicki. IV rocephin continued. Anticipate discharge home with no needs. [facility] 06-15-2024 Note Formatting of this n ote might be different from the original. Pt admitted for tx/evaluation of recurrent UTI in . OB note- 6 weeks 1 day. Pyelonephritis- urine culture pending. Vaginitis panel- nicki. IV rocephin continued. Anticipate discharge home with no needs. [facility] 06-15-2024 Note Pt admitted for tx/e valuation of recurrent UTI in . OB note- 6 weeks 1 day. Pyelonephritis- urine culture pending. Vaginitis panel- nicki. IV rocephin continued. Anticipate discharge home with no needs. [facility] 06-15-2024 Note Med Team Progress No [...] Labs 06/14/24135 PROCAL 0.03 CBC: Recent Labs 06/14/24 0136 06/15/24 0532 WBC 5.6 5.1 HGB 10.5* 10.6* HCT 30.8* 32.2* PLT 290 295 MCV 77.6 78.0 RDW 14.1 14.0 ABGs: No results for input(s): PHART, SJT0SLC, PO2ART, DOF0HDY, SO2ART, G0MSYMQT in the last 72 hours. Lactic Acid: [...] 3 days IV (more content not included)... [facility] 06-14-2024 Plan of care note Problem: [...] monitored and maintained or improved Outcome: Progressing [facility] 06-14-2024 History and physical note Internal Medicine: [...] with no significant Pmhx that presented to [facility] on 06/14/2024 from home after feeling lightheaded [...] 14.1 ABGs: No results for input(s): PHART, PIG6DDV, PO2ART, QVH7YXA, SO2ART, I0ZTTYTU in the last 72 hours. Lactic Acid: [...] on oral antibiotics. 7AM-5PM: contact resident on [facility] Med A (find by hovering over attending's name on left side of patient's chart) 5PM-7AM: contact AI3 res [facility] 06-14-2024 Note Internal Medicine: M ed Team [...] with no significant Pmhx that presented to [facility] on 06/14/2024 from home after feeling lightheaded [...] 290 MCV 77. (more content not included)... [facility] 06-14-2024 History and physical note Internal [...] with no significant Pmhx that presented to [facility] on 06/14/2024 from home after feeling lightheaded [...] 14.1 ABGs: No results for input(s): PHART, NBT8QHV, PO2ART, TZN7PFY, SO2ART, U1HVALEG in the last 72 hours. Lactic Acid: [...] on oral antibiotics. 7AM-5PM: contact resident on [facility] Med A (find by hovering over attending's name on left side of patient's chart) 5PM-7AM: contact AI3 res documented in this encounter [facility] 06-14-2024 Consult note Formatting of th is note is different from the original. Images from the original note were not included. DIGITAL COMPOSER Consult Patient Name: Sumit Green Patient : 2005 Room/Bed: Admission Date/Time: 06/14/2024 1:25 AM Primary Care Physician: Jeremy Vásquez HPI: Sumit Green is a 18 y.o. female presented to the [place] emergency department after having suprapubic pain for the past 3 to 4 days and new onset flank pain with syncopal episodes at work and home. Patient also having vaginal discharge that she thought was yeast infection. hCG collected with +17,000. UA was positive for moderate bacteria and abdominal exam was positive for suprapubic pain and CVA tenderness. Patient received Rocephin prior to transfer [facility] for further evaluation Patient was transferred to [facility] for transvaginal ultrasound that showed gestational sac [...] IVAN STEPHEN Reason For Exam: Pain/positive /quant [id number] EXAM TYPE: US PELVIS TRANSVAGINAL EXAM DATE [...] y.o. female Pyelonephritis - Presented to the [place] emergency department after having suprapubic pain for [...] - Patient received Rocephin prior to transfer [facility] for further evaluation - Patient was transferred to [facility] for transvaginal ultrasound that showed gestational sac measuring approximately 13mm with estimated gestational age of 6 weeks 1 day noted a 1.8 cm subchorionic hemorrhage. - Based on clinical exam and urinalysis concern for pyelonephritis and early - Recommend patient be admitted for IV antibiotics in the setting of pyelonephritis Early Subchorionic Hemorrhage - Patient was transferred to [facility] for transvaginal ultrasound that showed gestational sac [...] Velásquez, who is agreeable. Please page the [facility] O[facility]YN Call RES group via Secure Chat [...] plan as documented in the resident's note. [facility] Phone: 06-14-2024 Consult note Formatting of th is note is different from the original. Images from the original note were not included. DIGITAL COMPOSER Consult Patient Name: Sumit Green Patient : 2005 Room/Bed: Admission Date/Time: 06/14/2024 1:25 AM Primary Care Physician: Jeremy Vásquez HPI: Sumit Green is a 18 y.o. female presented to the [place] emergency department after having suprapubic pain for the past 3 to 4 days and new onset flank pain with syncopal episodes at work and home. Patient also having vaginal discharge that she thought was yeast infection. hCG collected with +17,000. UA was positive for moderate bacteria and abdominal exam was positive for suprapubic pain and CVA tenderness. Patient received Rocephin prior to transfer [facility] for further evaluation Patient was transferred to [facility] for transvaginal ultrasound that showed gestational sac [...] 06/14/2024 Patient Name: SUMIT GREEN : [address] [facility]#: [id number] Exam Date/Time: 06/14/2024 05:38 Procedure: US PELVIS TRANSVAGINAL Ordering Provider: IVAN STEPHEN Reason For Exam: Pain/positive /quant [id number] EXAM TYPE: US PELVIS TRANSVAGINAL EXAM DATE [...] y.o. female Pyelonephritis - Presented to the [place] emergency department after having suprapubic pain for [...] - Patient received Rocephin prior to transfer [facility] for further evaluation - Patient was transferred to [facility] for transvaginal ultrasound that showed gestational sac measuring approximately 13mm with estimated gestational age of 6 weeks 1 day noted a 1.8 cm subchorionic hemorrhage. - Based on clinical exam and urinalysis concern for pyelonephritis and early - Recommend patient be admitted for IV antibiotics in the setting of pyelonephritis Early Subchorionic Hemorrhage - Patient was transferred to [facility] for transvaginal ultrasound that showed gestational sac [...] Velásquez, who is agreeable. Please page the [facility] O[facility] Call RES group via Secure Chat [...] the resident's note. documented in this encounter [facility] 06-14-2024 Emergency department Note Transfer papers given to patient with instructions on how to get to [facility] ED. Patient verbalized understanding. [facility] 06-14-2024 Emergency department Note Phoned [facility] ED. Hand off report given to charge nurse. [facility] 06-14-2024 Emergency department Note Transfer papers given to patient with instructions on how to get to [facility] ED. Patient verbalized understanding. Phoned [facility] ED. Hand off report given to charge [...] Culture. Procedure Abnormality Status --------- ------ Complete Urinalysis[[id number]] Abnormal Final result Please view results for [...] for pyelonephritis.. I discussed their care with Expressive Therapist DIGITAL COMPOSER, recommended ED to ED transfer for transvaginal [...] Pyelonephritis affecting , antepartum DISPOSITION Transfer To [facility] Ed 06/14/2024 03:42:53 AM PATIENT REFERRED TO: [facility] EMERGENCY DEPT [address] [place] [phone] Go today DISCHARGE MEDICATIONS: Current Discharge [...] Date of evaluation: 06/14/2024 ED Provider: Abiodun Hughes DO CHIEF COMPLAINT Chief Complaint Patient presents [...] Physician EKG interpretation can be found in [facility] RADIOLOGY (Per Emergency Physician): Interpretation per the [...] Culture. Procedure Abnormality Status --------- ------ Complete Urinalysis[[id number]] Abnormal Final result Please view results for these tests on the individual orders. HCG QUALITATIVE URINE HCG,URINE QUAL Positive Narrative: is the most common reason for HCG in urine, although choriocarcinoma, hydatidiform mole, and certain nontrophoblastic malignancies also result in detectable urinary HCG levels. Sensitivity = 20mIU/mL. HCG QUANTITATIVE BLOOD HCG QUANTITATIVE 17,805.3 Narrative: Values in should double every 2 [...] Pyelonephritis affecting , antepartum DISPOSITION Transfer To [facility] Ed 06/14/2024 03:42:53 AM PATIENT REFERRED TO: [facility] EMERGENCY DEPT [address] [place] [phone] Go today DISCHARGE MEDICATIONS: Current Discharge [...] contact the dictating provider for clarification.) Abiodun Hughes DO (electronically signed) Emergency Medicine Provider Abiodun Hughes DO Resident 06/14/24 0927 Cosigned by Omar Dupree MD at 06/14/2024 1:15 PM EST Emergency Department Encounter [facility] EMERGENCY DEPT Patient: Sumit Green : 2005 [...] the emergency department as a transfer from [facility] for suspected pyelonephritis. Brief ED course/MDM: Patient evaluated here by DIGITAL COMPOSER. Recommend admission to medicine and continued antibiotics. [...] dictating provider for clarification.) Omar Dupree MD [facility] Omar Dupree MD 06/14/24 0858 Patient arrived ambulatory to room 2 without difficulty. Patient complains of dizziness yesterday and passed out for a couple of seconds. Patient also complains of vaginal itching, swelling and pain x 3 days. documented in this encounter [facility] 06-14-2024 Emergency department Triage note Patient arrived ambulatory to room 2 without difficulty. Patient complains of dizziness yesterday and passed out for a couple of seconds. Patient also complains of vaginal itching, swelling and pain x 3 days. [facility] 06-14-2024 Physician Emergency department Note EMERGENCY DEPARTMENT [...] Alcohol use: Never Drug use: Never SCREENINGS [place]ont Coma Scale Best Eye Response: Spontaneous Best [...] Culture. Procedure Abnormality Status --------- ------ Complete Urinalysis[[id number]] Abnormal Final result Please view results for [...] for pyelonephritis.. I discussed their care with Expressive Therapist DIGITAL COMPOSER, recommended ED to ED transfer for transvaginal [...] Pyelonephritis affecting , antepartum DISPOSITION Transfer To [facility] 06/14/2024 03:42:53 AM PATIENT REFERRED TO: [facility] EMERGENCY DEPT [address] [place] [phone] Go today DISCHARGE MEDICATIONS: Current Discharge [...] Medicine Provider Zahira Graham DO 06/14/24 0349 [facility] 06-14-2024 Physician Emergency department Note EMERGENCY DEPARTMENT ENCOUNTER Pt Name: Sumit Green Birthdate 2005 Date of evaluation: 06/14/2024 ED Provider: Abiodun Hughes DO CHIEF COMPLAINT Chief Complaint Patient presents [...] Physician EKG interpretation can be found in [facility] RADIOLOGY (Per Emergency Physician): Interpretation per the [...] Culture. Procedure Abnormality Status --------- ------ Complete Urinalysis[[id number]] Abnormal Final result Please view results for [...] Pyelonephritis affecting , antepartum DISPOSITION Transfer To [facility] Ed 06/14/2024 03:42:53 AM PATIENT REFERRED TO: [facility] EMERGENCY DEPT [address] [place] [phone] Go today DISCHARGE MEDICATIONS: Current Discharge [...] contact the dictating provider for clarification.) Abiodun Hughes DO (electronically signed) Emergency Medicine Provider Abiodun Hughes DO Resident 06/14/24 0927 Cosigned by Omar Dupree MD at 06/14/2024 1:15 PM EST [employer] Phone: 06-14-2024 Physician Emergency department Note Emergency Department Encounter [facility] EMERGENCY DEPT Patient: Sumit Green : 2005 [...] the emergency department as a transfer from [facility] for suspected pyelonephritis. Brief ED course/MDM: Patient evaluated here by DIGITAL COMPOSER. Recommend admission to medicine and continued antibiotics. [...] [employer] Omar Dupree MD 06/14/24 0858 [employer] Phone: 05-27-2024 Emergency department Note [facility] ED EMERGENCY DEPARTMENT ENCOUNTER Pt Name: [...] MD Electronically Signed Date/Time: 05/27/2024 10:33 AM [facility] ED BEDSIDE ULTRASOUND: Performed by ED Physician [...] culture. Procedure Abnormality Status --------- ------ Urine culture[[id number]] Urine Hold Cup[[id number]] Please view results for these tests on the individual orders. URINE CULTURE COMPLETE URINALYSIS WITH REFLEX TO CULTURE Narrative: The following orders were created for panel order Urinalysis complete with reflex to Culture. Procedure Abnormality Status --------- ------ Complete Urinalysis[[id number]] Abnormal Final result Please view results for [...] she has had visits in 2023 with DIGITAL COMPOSER. Radiologic diagnostics interpreted by me: film images [...] Discharge 05/27/2024 11:00:20 AM PATIENT REFERRED TO: [place] [id number] In 1 week DISCHARGE MEDICATIONS: New Prescriptions ALBUTEROL 108 (90 BASE) MCG/ACT INHALER Inhale 2 puffs every 4 hours as needed for wheezing. BENZONATATE (TESSALON) 200 MG CAPSULE Take 1 capsule (200 mg) by mouth every 8 hours for 7 days. Do not crush or chew. PREDNISONE (DELTASONE) 20 MG TABLET Take 2 tablets (40 mg) by mouth daily for 5 days. @[facility]7940,[id number]:LAST:1)@ (Comment: Please notethis report has been produced [...] Emergency Physician Mikal Woodson MD 05/27/24 1102 Pt ambulatory to room 6 with c/o flu like symptoms x 2 days with cough, sore throat, congestion . Pt reports having sweats last night that improved after shower. Pt reports having anterior left rib pain x 1 week. documented in this encounter [facility] 05-27-2024 Emergency department Triage note Pt ambulatory to room 6 with c/o flu like symptoms x 2 days with cough, sore throat, congestion . Pt reports having sweats last night that improved after shower. Pt reports having anterior left rib pain x 1 week. [facility] 05-27-2024 Physician Emergency department Note [facility] ED EMERGENCY DEPARTMENT ENCOUNTER Pt Name: [...] culture. Procedure Abnormality Status --------- ------ Urine culture[[id number]] Urine Hold Cup[[id number]] Please view results for these tests on the individual orders. URINE CULTURE COMPLETE URINALYSIS WITH REFLEX TO CULTURE Narrative: The following orders were created for panel order Urinalysis complete with reflex to Culture. Procedure Abnormality Status --------- ------ Complete Urinalysis[[id number]] Abnormal Final result Please view results for [...] she has had visits in 2023 with DIGITAL COMPOSER. Radiologic diagnostics interpreted by me: film images [...] Discharge 05/27/2024 11:00:20 AM PATIENT REFERRED TO: [place] [id number] In 1 week DISCHARGE MEDICATIONS: New Prescriptions ALBUTEROL 108 (90 BASE) MCG/ACT INHALER Inhale 2 puffs every 4 hours as needed for wheezing. BENZONATATE (TESSALON) 200 MG CAPSULE Take 1 capsule (200 mg) by mouth every 8 hours for 7 days. Do not crush or chew. PREDNISONE (DELTASONE) 20 MG TABLET Take 2 tablets (40 mg) by mouth daily for 5 days. @[facility](7943,[id number]:LAST:1)@ (Comment: Please notethis report has been produced [...] Emergency Physician Mikal Woodson MD 05/27/24 1102 [facility] 05-06-2024 Hospital Discharg e instructions Ovi Delacruz MD - 05/06/2024 5:04 PM EST Extra strength Tylenol every 6 hours as needed for pain The following attachments cannot be sent through Care Everywhere.Acute Cystitis Discharge Instructions (Djiboutian)documented in this encounter [facility] 05-06-2024 Emergency department Note EMERGENCY DEPARTMENT ENCOUNTER [...] Culture. Procedure Abnormality Status --------- ------ Complete Urinalysis[[id number]] Abnormal Final result Please view results for [...] hCG, urine, qualitative Complete Urinalysis [facility] MDM: 18 y.o. presented with abdominal pain. [...] Discharge 05/06/2024 05:03:48 PM PATIENT REFERRED TO: [place] [id number] I prescribed: New Prescriptions CEPHALEXIN (KEFLEX) 500 [...] MD 05/06/24 1708 documented in this encounter [facility] 05-06-2024 Physician Emergency department Note EMERGENCY DEPARTMENT [...] Culture. Procedure Abnormality Status --------- ------ Complete Urinalysis[[id number]] Abnormal Final result Please view results for [...] hCG, urine, qualitative Complete Urinalysis [facility] MDM: 18 y.o. presented with abdominal pain. [...] Discharge 05/06/2024 05:03:48 PM PATIENT REFERRED TO: [facility] [place] [id number] I prescribed: New Prescriptions CEPHALEXIN (KEFLEX) 500 [...] MD (electronically signed) Ovi Delacruz MD 05/06/24 3251 [facility] 07-16-2023 Discharge summary Note Date/Time July 16, 2023 8:10pm [facility] Medical Records Department [address] [place] [address] Emergency Department Summary 07/16/23 MR#: [id number] Acct: [id number] Name: SUMIT GREEN Rep #:[id number] : 2005 17 From: Umer Messina MD [...] % (Auto) 50.2 Lymph % (Auto) 36.4 Milam % (Auto) 9.5 H Eos % (Auto) [...] Primary Care Provider: Care Physician,No Primary Referrals: FriendRavi DO [Med Staff - Active Staff] - 1-2 Weeks Care Physician,No Primary [Primary Care Provider] - Activity Restrictions/Additional Instructions: The name of your primary care doctor is located on your insurance card issued toyou by care source. In light of your constellation of symptoms and chronic diarrhea refer to Dr. Maloney who is the GI specialist on-call Disposition Disposition: Home, Self Care What to do if you have Problems For any increased pain, shortness of breath, bleeding, nausea or vomiting, chestpain, or any unexpected problems, contact your Primary Care Provider. Call [facility] ([phone]) or report to the closest Emergency Room. Call 911 if necessary. 07/16/232044 <Electronically signed by Umer Messina MD> Cosigner Signature (if applicable): CC: No Primary Care Physician ~ Signed [facility] Work Phone: 1(100) 824-624101-05-2024 NoteHNO ID: [id number] Author: GABY GONZALEZ APRN.MOTORIZED SQUAD CAPTAIN Service: ? Author Type: Nurse Practitioner Type: Progress Notes Filed: 04/29/2023 15:59 Note Text: Sumit is a 17 year old No obstetric history on file. who presents for an annual gynecologic exam with complaints, missed Keron period and vaginal burning . Presents: alone Menses: cycles every 30 days and 6-7 days of flow. Contraception: none HPV vaccine: Unknown Last pap smear: never Sexually active: Not currently History of STDS: None Pain with intercourse: No Postcoital bleeding: No OB History No obstetric history on file. 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 LMP: Age at Menarche: Age at First : Age at Menopause: 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 Comments: Sexual Activity: No sexual activity [...] external genitalia normal, normal Bartholin's glands, urethra, [place]'s glands, no vulvar lesions, no cervical lesions, [...] she would like to proceed Gaby Gonzalez APRN.CNPMercy Health [facility] HospitalEvdale medical centeration noteNo assessment information availableWOhioHealth Dublin [facility] Hospital Work Phone: [facility] note* Diagnosis Weight loss Loss of weight documented in this encounter [facility] note* Diagnosis Diarrhea, unspecified type documented in this encounter [facility] note* Diagnosis Lower abdominal pain- Primary Abdominal pain, other specified site Acute cystitis with hematuria documented in this encounter [facility] note* Diagnosis Acute cough- Primary Dysuria documented in this encounter [facility] note* Diagnosis Threatened - Primary documented in this encounter [facility] note* Diagnosis Recurrent UTI (urinary tract infection) complicating , first trimester- Primary Pyelonephritis affecting , antepartum documented in this encounter [facility] note* Diagnosis Recurrent UTI (urinary tract infection) complicating , first trimester- Primary documented in this encounter [facility] note* Diagnosis Recurrent UTI (urinary tract infection) complicating , first trimester- Primary Recurrent UTI (urinary tract infection) complicating , first trimester- Primary documented in this encounter [facility] note* Diagnosis Recurrent UTI (urinary tract infection) complicating , first trimester- Primary Recurrent UTI (urinary tract infection) complicating , first trimester- Primary Amenorrhea Absence of menstruation documented in this encounter [facility] note* Diagnosis Recurrent UTI (urinary tract infection) complicating , first trimester- Primary Threatened documented in this encounter [facility] note* Diagnosis Recurrent UTI (urinary tract infection) complicating , first trimester- Primary Encounter for supervision in primigravida, antepartum- Primary Vaping nicotine dependence, tobacco product documented in this encounter [facility] note* Diagnosis Recurrent UTI (urinary tract infection) complicating , first trimester- Primary Encounter for supervision in primigravida, antepartum- Primary Vaping nicotine dependence, tobacco product Dysuria- Primary Encounter for supervision of normal first , first trimester care, first in second trimester Iron deficiency anemia secondary to inadequate dietary iron intake documented in this encounter [facility] note* Diagnosis Recurrent UTI (urinary tract infection) [...] vulva and vagina [facility]* Diagnosis Recurrent UTI (urinary tract [...] deficiency anemia type [facility]* Diagnosis Recurrent UTI (urinary tract [...] deficiency anemia, unspecified iron deficiency anemia type care, first in second trimester- Primary Circumvallate placenta in second trimester Vaping nicotine dependence, tobacco product Hx of anorexia nervosa [facility]* Diagnosis Recurrent UTI (urinary tract [...] deficiency anemia, unspecified iron deficiency anemia type care, first in second trimester- Primary Circumvallate placenta in second trimester Vaping nicotine dependence, tobacco product Hx of anorexia nervosa Circumvallate placenta in second trimester [facility]* Diagnosis Encounter for supervision in primigravida, antepartum- Primary Vaping nicotine dependence, tobacco product Dysuria- Primary Encounter for supervision of normal first , first trimester care, first in second trimester Iron deficiency anemia secondary to inadequate dietary iron intake care, first in second trimester- Primary Recurrent UTI (urinary tract infection) complicating , first trimester Iron deficiency anemia, unspecified iron deficiency anemia type care, first in second trimester- Primary Circumvallate placenta in second trimester Vaping nicotine dependence, tobacco product Hx of anorexia nervosa care, first in second trimester- Primary Circumvallate placenta in second trimester Hx of anorexia nervosa Iron deficiency anemia, unspecified iron deficiency anemia type [facility] Diagnosis Encounter for supervision in primigravida, antepartum- Primary Vaping nicotine dependence, tobacco product Dysuria- Primary Encounter for supervision of normal first , first trimester care, first in second trimester Iron deficiency anemia secondary to inadequate dietary iron intake care, first in second trimester- Primary Recurrent UTI (urinary tract infection) complicating , first trimester Iron deficiency anemia, unspecified iron deficiency anemia type Iron deficiency anemia, unspecified iron deficiency anemia type- Primary care, first in second trimester- Primary Circumvallate placenta in second trimester Vaping nicotine dependence, tobacco product Hx of anorexia nervosa care, first in second trimester- Primary Circumvallate placenta in second trimester Hx of anorexia nervosa Iron deficiency anemia, unspecified iron deficiency anemia type [facility] Additional Instructions The name of your primary care doctor is located on your insurance card issued to you by care source. In light of your constellation of symptoms and chronic diarrhea refer to Dr. Maloney who is the GI specialist on-callWOhioHealth Dublin Methodist Hospital Work Phone: Hospital Discharge instructions* Attachments The following attachments cannot be sent through Care Everywhere. * Dysuria Discharge Instructions, Adult (Djiboutian) * Cough Discharge Instructions, Adult (Djiboutian) [facility] instructions Additional Instructions See attached list for safe medications you can take during .[facility] Work Phone: Reason for referral (narrative)No reason for referral information availableWOhioHealth [facility] Hospital Work Phone: Chief Complaint and Reason for Visit Chief Complaint R HAND Chief Complaint BILAT BREAST PAIN SUSAN MPS Chief Complaint BILAT BREAST PAIN SUSAN MPS vaginal syncope Chief Complaint FATIGUE Chief Complaint Admit Date vaginal discharge, congestion September 26, 2024 7:08am Summary Purpose Family History No Family History Records FoundNo Family History Records FoundNo Family History Records FoundNo Family History Records FoundNo Family History Records Found Advance Directives No Advanced Directives Records Found Advance Directive Response Recorded Date/ Time Living Will No July 16, 2023 6:58pm Power of Setter Up No July 15 6:58pm Date Activated Date Inactivated Comments 06/14/2024 9:08 AM Date Activated Date Inactivated Comments 06/14/2024 9:08 AM 06/16/2024 5:12 PM Date Activated Date Inactivated Comments 06/14/2024 9:08 AM 06/16/2024 5:12 PM Advance Directive Response Recorded Date/ Time Do you have a Healthcare Power of Setter Up? No September 26, 2024 7:30am Additional Source Comments Goals (unrecognized section and [...] Physician Primary Care Provider Active Galina Valdez EDGE ROLLER, EDGE ROLLER-C Attending Provider, Referring Provider Active Team Status: [...] Primary Care Physician Primary Care Provider Active Primary Grade Teacher Relationship Specialty Start Date End Date Jeremy Vásquez MD [facility] [place] [address] PCP - General Pediatrics 04/03/20 Primary Grade Teacher Relationship Specialty Start Date End Date Jeremy Vásquez MD [address] [place] [phone] PCP - General Pediatrics 04/03/20 Primary Grade Teacher Relationship Specialty Start Date End Date Jeremy Vásquez [address] [place] [phone] PCP - General Pediatrics 06/14/24 Primary Grade Teacher Relationship Specialty Start Date End Date FahadJeremy estrada [address] [place] [phone] (Fax) PCP - General Pediatrics 06/14/24 Primary Grade Teacher Relationship Specialty Start Date End Date FahadJeremy estrada [address] [place], [place] [phone] (Fax) PCP - General Pediatrics 06/14/24 Primary Grade Teacher Relationship Specialty Start Date End Date FahadJeremy [address] [place], [place] [phone] (Fax) PCP - General Pediatrics 06/14/24 Primary Grade Teacher Relationship Specialty Start Date End Date Jeremy Vásquez [address] [place] [phone] (Fax) PCP - General Pediatrics 06/14/24 Primary Grade Teacher Relationship Specialty Start Date End Date Fahad, Jeremy [address] [place], [place] [phone] (Fax) PCP - General Pediatrics 06/14/24 Primary Grade Teacher Relationship Specialty Start Date End Date Fahad Jeremy [address] [place] [phone] (Fax) PCP - General Pediatrics 06/14/24 Team Status: Inactive Member Role Status Dates Dr. Reji Garcia MD Emergency Provider Active Start: September 26, 2024 End: September 26, 2024 No Primary Care Physician Primary Care Provider Active Start: September 26, 2024 End: September 26, 2024 INFORMATION SOURCE (unrecogn ized section and content) DATE CREATED AUTHOR 05/22/2023 [facility] DATE CREATED AUTHOR AUTHOR'S ORGANIZ ATION 07/29/2023 [facility] DATE CREATED AUTHOR AUTHOR'S ORGANIZ ATION 07/30/2023 [facility] DATE CREATED AUTHOR AUTHOR'S ORGANIZ ATION 10/03/[address] [facility] DATE CREATED AUTHOR AUTHOR'S ORGANIZ ATION 11/11/2024 [facility] Reason for Visit (unrecogniz ed section and content) Reason Comments Abdominal Pain Vaginal Bleeding Reason Comments Flu Symptoms Reason Comments Dizziness Vaginal Itching Specialty Diagnoses / Procedures Referred By Contmarcelina t Referred To Contact Diagnoses Pyelonephritis affecting , antepartum Recurrent UTI (urinary tract infection) complicating , first trimester Procedures . Jef Fabian, [address] [address] Phone: tel: fax: [facility] EMERGENCY DEPT [address] [place] [address] Phone: tel: Referral ID Status Reason Start Date Expiration Date Visits Re quested Visits Authorized [id number] 1 Reason Comments Hospital Follow-up Uti, yeast infection , Reason Comments Follow-up U/S follow up Reason Comments Follow-up Reason Comments Dizziness Fainting Reason Comments Routine Visit 13 weeks, 2 days. No c/o. Reason Comments Abdominal Pain Reason Comments Routine Visit Discuss short ter m disability Reason Comments Routine Visit Reason Comments Follow-up Nurse visit Scheduled Active and Recently Administ ered Medications [...] Infection 0205 (New Bag - Provider: Nereyda Woodson RN)0309 (Stopped - Provider: Nereyda Woodson RN) cefTRIAXone (Rocephin) 1 g in sodium chloride [...] 0930 0927 (Given - Provider: Bella Gunn, YUDI) vitamin tablet 1 tablet, Oral, Daily, First dose on Chastity 06/14/24 at 1120 1313 (Given - Provider: Gaby Acuna RN) 1231 (Given - Provider: Shamar Estes RN) 0925 (Given - Provider: Bella Gunn, YUDI) sodium chloride 0.9 % bolus 1,000 mL (COMPLETED) 1,000 mL, IntraVENous, at 1,000 mL/hr, Administer over 1 Hours, Once, On Chastity 06/14/24 at 0135, For 1 dose 0135 (New Bag - Provider: Nereyda Woodson RN)0310 (Stopped - Provider: Nereyda Woodson RN) PRN Medication Order 06/14/2024 06/15/2024 06/16/2024 [...] RN) 0105 (See Alternative - Provider: Cecelia Santos RN) acetaminophen (Tylenol) tablet 650 mg(Linked Group 1) 650 mg, Oral, Every 6 hours PRN, mild pain (1-3), fever, For temp greater than 100.4 F (38 C), Starting on Chastity 06/14/24 at 0907, Maximum dose of acetaminophen is 4000 mg from all sources in 24 hours. 0543 (Given - Provider: Cecelia Santos, RN)1601 (Given - Provider: Shamar Estes RN) 0105 (Given - Provider: Cecelia Santos RN) ondansetron (Zofran) injection 4 mg (CANCELED)(Linked Group 2) 4 mg, IntraVENous, Every 6 hours PRN, nausea, vomiting, Starting on [place]ast[place] 06/14/24 at 0907, 1st Line. Give IV if patient is unable to take orally. If inadequate response within 60 minutes, proceed to next-line agent or contact provider if no further options ordered. 1647 (Given - Provider: Rayas Garcia RN) polyethylene glycol (PEG) 3350 (Miralax) [...] BE BASED ON THE PRIMARY CLINICAL RECORDS. [facility]. provides no warranty or guarantee of the accuracy or completeness of information in this document.
[2024-11-22 23:43] VITALS: RESP 15; TEMP 37.1
[2024-11-22 23:44] VITALS: BP 100/66; PULSE 80
[2024-11-23 00:33] LABS: Mucous, Urine 0 SEEN /hpf (<or=2+)
[2024-11-23 00:35] LABS: Hematocrit 29.6 % (37-47); Hemoglobin 9.7 g/dL (12.0-15.0); Immature Granulocytes Count 0.130 X10^3/uL (0.0-0.0); Mean Corp Hgb Conc 32.8 g/dL (32-36); Mean Corpuscular Volume 82.9 fL (81-99); Mean Platelet Vol. 9.2 fl (6.2-12.0); NRBC Flagged by Analyzer 0 % (0-5); Platelet Count 205 K/mm3 (150-450); RBC Distribution Width CV 12.8 % (11.6-14.6); RBC Distribution Width SD 39.1 fl (35.1-43.9); Red Blood Count 3.57 M/mm3 (4.2-5.4); White Blood Count 7.2 K/mm3 (4.4-11.0)
[2024-11-23 00:36] LABS: Glucose, Dipstick Normal (Normal); Ketone-Dipstick Negative (Negative); Leukocyte Esterase-Dipstick 500 /ul (Negative); Nitrite-Dipstick Negative (Negative); Occult Blood-Urine Negative /ul (Negative); Protein-Dipstick 15 mg/dl (Negative); Specific Gravity, Urine 1.015 (1.002-1.030); Urine Bilirubin Dipstick Negative (Negative)
[2024-11-23 00:38] LABS: Color, Urine Straw (Yellow)
[2024-11-23 00:53] LABS: Creatinine, Urine (random) 86.70 mg/dL (28.00-217.00); Protein, Urine (Random) 15.0 mg/dL (0.0-12.0); Protein:Creat Ratio 173 mg/g CRE (0-200)
[2024-11-23 00:54] LABS: AST(SGOT) 15 U/L (<=31); Alanine Aminotransfer ALT/SGPT 11 U/L (<=34); Albumin, Serum 3.4 g/dL (3.5-5.0); Alkaline Phosphatase 105 U/L (35-104); Anion Gap 11 (5-15); BUN 5 mg/dL (4-19); BUN/Creat Ratio 9.1 RATIO (10-20); Calcium,Total 8.8 mg/dL (7.6-11.0); Carbon Dioxide 22.0 mmol/L (21.0-32.0); Chloride 106 mmol/L (98-108); Globulin 2.6 g/dL (2.2-4.2); Glucose 78 mg/dL (70-99); Potassium 3.6 mmol/L (3.3-5.1)
[2024-11-23 01:10] LABS: Fetal Fibronectin Negative; Record Kit Lot#, fFN J4938
[2024-11-23 01:28] LABS: Red Blood Cells-Urine 0-5 SEEN /hpf (0-5); Squamous Epithelial Cells - UA 5-10 SEEN /hpf (5-10)
[2024-11-23 02:16] LABS: ROM Internal Control Test YES-OK TO RESULT pt. (Internal QC)
[2024-11-23 02:17] LABS: ROM Patient Test Negative (Negative); Record Kit Lot#, ROM+ K3358
--- NOTE | 2024-11-26 12:45 | OB.TRI.NOTE ---
HPI - General General Date of Admission: 11/22/24 Date of Service: 11/22/24 Chief Complaint: cramping HPI Narrative SUMIT GREEN, is a 18 F who presents at 28 weeks with cramping. Feels she is leaking urine and having urinary frequency. No vb. Good FM. PFSH PFSH Medical History Bipolar 1 disorder Medical History no medical history Home Medications ?Medication ?Instructions ?Recorded ?Last Taken ?Type ibuprofen 600 mg tablet 600 mg PO Q8H PRN fever or pain 05/25/24 Unknown Rx #30 tabs miconazole nitrate 2 % vaginal 1 appful vaginal QHS 7 days #45 09/26/24 Unknown Rx cream (Miconazole-7) grams vit no.95-ferrous 1 tab PO DAILY 11/22/24 Unknown History fumarate 28 mg-folic acid 800 mcg tablet () amoxicillin 875 mg-potassium 1 tab PO BID 7 days #14 tabs 11/25/24 Unknown Rx clavulanate 125 mg tablet cyclobenzaprine 5 mg tablet 5 mg PO TID PRN PRN muscle spasm 11/25/24 Unknown History lidocaine 5 % topical patch 2 patch topical DAILY 11/25/24 Unknown History terconazole 0.4 % vaginal cream 1 appful vaginal QHS 11/25/24 Unknown History Allergy/AdvReac Type Severity Reaction Status Date / Time No Known Allergies Allergy Verified 11/25/24 12:34 Social History household members: significant other Smoking Status: Former smoker Physical Exam Const alert and no apparent distress Constitutional Narrative: sleeping per RN General Appearance: comfortable GI soft to palpation, non-tender and non-distended NST FHR Rate Baby A Baseline: 125 Variability:: Moderate Accelerations:: 15 x 15 Decelerations:: None NST Reactive:: Yes FHR Category:: Category I Uterine Activity:: irregular Assessment & Plan (1) 28 weeks gestation of : PLAN: Cvx closed upon presentation and recheck. FFN and ROM plus negative. Patient sleeping and pain improved with Tylenol. D/c home with return precautions. Urine cx sent. (2) Abdominal cramping affecting :
== END 2024-11-23 03:30 | disposition home or self-care (01) ==
LOC: WPOUT 23:30 → WP 23:31
PROVIDERS: Referring Provider Obstetrics & Gynecology; Visit Provider Obstetrics & Gynecology
DX: O99.891 Other specified diseases and conditions complicating pregnancy (principal); R25.2 Cramp and spasm; R10.9 Unspecified abdominal pain; Z3A.28 28 weeks gestation of pregnancy
CPT/HCPCS: 36415; 59025; 59050; 80053; 81001; 82570; 82731; 84112; 84156; 85025; 99221; G0378

== ENCOUNTER 2024-11-25 12:30 | Emergency (ER) | payer MEDICAID, SELFPAY ==
[2024-11-25 12:31] VITALS: BP 110/70; PULSE 113; RESP 16; TEMP 37.2; O2SAT 98; BMI 19.8
--- OUTSIDE RECORDS SUMMARY | 2024-11-25 13:13 | XMS RPT_ITS | CCD ---
Author Organization [facility] CliniSyct Care Team Providers Care Personal Fitness Manager Name Role Phone GABY GONZALEZ Attending Unavailable [...] Unavailabl e Jeremy Vásquez Primary Care Provider [phone] Dr. Reji Garcia MD Emergency Provider Care Physician, No Primary Primary Care Provider Unavailable Dr. Reji Garcia MD Attending Provider Dr. Alyx Navarro DO Attending Provider [phone] Dr. Alyx Navarro DO Referring Provider MODESTO CATES Attending Unavailable MAYO MAGUIRE Attending Unavailable FAHAD, JEREMY Primary Care Unavailable GLORIA OHARA Attending Unavailable FAHAD, JEREMY Primary Care Unavailable OVI DELACRUZ Attending Unavailable MARIAN COUGHLIN Admitting Unavailable MARIAN COUGHLIN Attending Unavailable FAHAD, JEREMY Primary Care Unavailable FAHAD, JEREMY Primary Care Unavailable JEF FABIAN Admitting Unavailable JEF FABIAN Attending Unavailable MIKAL WOODSON Attending Unavailable OVI DELACRUZ Attending Unavailable KAITLIN AIKEN Attending Unavailable FAHAD, JEREMY Primary Care Unavailable AUREA RODRIGUEZ Attending Unavailable MIKAL WOODSON Referring Unavailable KARRIE VELÁSQUEZ Attending Unavailable VELÁSQUEZ, KARRIE Referring Unavailable FAHAD, JEREMY Primary Care Unavailable JAMSHID, KI Referring Unavailable STACEY CROUCH Attending Unavailable JACKOVIC, KI Referring Unavailable FAHAD, JEREMY Primary Care Unavailable JACKCLAY KI Attending Unavailable MODESTO CATES Attending Unavailable Alyx Navarro Referring Unavailable Alyx Navarro Attending Unavailable Care Physician, No Primary Primary Care Unava ilable Ronald Andrew Attending Unavailable Care Physician, No Primary Primary Care Unava ilable Reji Garcia Attending Unavailable Care Physician, No Primary Primary Care Unava ilable Medications Current Medications Medication Drug Class(es) Dates Sig (Normalized) Sig (Original) [id number] 200 actuat albuterol 0.09 mg/actuat metered dose [...] 06/03/2024 Active cephalexin 500 mg oral capsule (9 sources) Cephalosporin Antibacterial Start: 11-23-2024 End: 11-30-2024 take 1 capsule by mouth four times daily cephalexin (Keflex) 500 MG capsule Indications: Genitourinary Infection Take 1 capsule (500 mg) by mouth 4 times daily for 7 days. 28 capsule 11/23/2024 11/30/2024 Active Start: 09-05-2024 End: 09-12-2024 take 1 capsule [...] 07/21/2023 Active ibuprofen 600 mg oral tablet (2 sources) Nonsteroidal Anti-inflammatory Drug Start: 05-25-2024 take 1 tablet by mouth every eight hours as needed for pain Ibuprofen 600 mg tablet Active 600 mg PO Q8H as needed for fever or pain 30 0 May 25, 2024 1:00am metroNIDAZOLE 500 mg oral tablet (3 sources) Nitroimidazole Antimicrobial Start: 09-05-2024 End: 09-12-2024 take 1 tablet by mouth twice daily metroNIDAZOLE (Flagyl) 500 MG tablet Take 1 tablet (500 mg) by mouth 2 times daily for 7 days. 14 tablet 09/05/2024 09/12/2024 Active miconazole nitrate 20 mg/ml vaginal cream (2 sources) Azole Antifungal Start: 09-26-2024 Miconazole Nitrate (Miconazole-7) 2 % cream Active 1 NMA VAGINAL AT BEDTIME 45 7 0 September 26, 2024 12:00am Nerve Stimulator (Standard TENS) device (11 sources) Start: 10-10-2024 Nerve Stimulator (Standard TENS) device 1 Units as needed (hip pain). 1 each 10/10/2024 Active Nerve Stimulator (TENS Therapy Replace Back Pads) misc (11 sources) Start: 10-10-2024 Nerve Stimulator (TENS Therapy [...] penicillin v potassium 500 mg oral tablet (2 sources) Start: 05-25-2024 take 1 tablet by mouth every six hours Penicillin V Potassium 500 mg tablet Active 500 mg PO EVERY 6 HOURS 28 7 0 May 25, 2024 1:00am Pnv Cmb#95-Ferrous Fumarate-Fa () 28 mg iron- 800 mcg tablet (1 source) Start: 11-22-2024 Pnv Cmb#95-Ferrous Fumarate-Fa () 28 mg iron- 800 mcg tablet Active 1 {tbl} PO DAILY November 22, 2024 12:00am predniSONE 20 mg oral tablet (4 sources) [...] Drug Class(es) Dates Sig (Normalized) Sig (Original) acetaminophen 500 mg oral tablet (6 sources) Start: 11-23-2024 End: 11-23-2024 1,000 mg, Oral, Once, On Tue11/23/24 at 1845, For 1 dose, Maximum dose of acetaminophen is 4000 mg from all sources in 24 hours. Start: 11-23-2024 End: 12-03-2024 take 2 tablets by mouth every eight hours as needed for pain and pain acetaminophen (Tylenol Extra Strength) 500 MG tablet Take 2 tablets (1,000 mg) by mouth every 8 hours as needed for mild pain (1-3) or moderate pain (4-6) for up to 10 days. 30 tablet 11/23/2024 12/03/2024 Active Start: 06-14-2024 End: 06-16-2024 take 1 tablet by mouth every six hours as needed for pain and fever acetaminophen (Tylenol) tablet 650 mg amoxicillin 875 mg / clavulanate 125 mg oral tablet (5 sources) Penicillin-class Antibacterial Start: 06-16-2024 End: 07-17-2024 take 1 tablet by mouth twice daily amoxicillin-clavulanate (Augmentin) 875-125 MG tablet Take 1 tablet [...] hr, Administer over 30 Minutes, Once, On Tue06/14/24 at 0200, For 1 dose, Mini-Bag Plus bag, Suspected Indication (Select all that apply): Urinary Tract Infection cyclobenzaprine hydrochloride 10 mg oral tablet (4 sources) Muscle Relaxant Start: 11-23-2024 End: 11-23-2024 take 5 mg by mouth once 5 mg, Oral, Once, On Tue11/23/24 at 1845, For 1 dose Start: 11-23-2024 End: 12-03-2024 take 1 tablet by mouth three times daily as needed for muscle spasms cyclobenzaprine (Flexeril) 5 MG tablet Take 1 tablet (5 mg) by mouth 3 times daily as needed for muscle spasms for up to 10 days. 30 tablet 11/23/2024 12/03/2024 Active lidocaine 0.04 mg/mg medicated patch (4 sources) Antiarrhythmic, Amide Local Anesthetic Start: 11-23-2024 End: 11-23-2024 apply 1 dose transdermal route once daily, then apply 1 dose transdermal route every twelve hours 1 patch, TransDERmal, Administer over 12 Hours, Daily, First dose on Tue11/23/24 at 1845, Apply patch to area of pain. Patch may remain in place for up to 12 hours in any 24 hour period. Start: 11-23-2024 apply 1 dose transde rmal route once daily, then apply 1 dose transdermal route every twelve hours lidocaine (Lidoderm) 5 % patch Apply 1 patch topically daily. Remove & discard patch within 12 hours or as directed by MD. 10 patch 11/23/2024 Active nitrofurantoin, macrocrystals 25 mg / nitrofurantoin, monohydrate 75 mg oral capsule (11 sources) Nitrofuran Antibacterial Start: 06-26-2024 End: 07-17-2024 take 1 capsule by mouth twice daily nitrofurantoin, macrocrystal-monohydrate, (Macrobid) 100 MG capsule Indications: Uncomplicated Urinary Tract Infection Take 1 capsule (100 mg) by mouth 2 times daily for 7 days. 14 capsule 06/29/2024 07/17/2024 Discontinued (Therapy completed) polyethylene glycol 3350 [id number] mg powder for oral solution (2 sources) Osmotic Laxative Start: 06-14-2024 End: 06-16-2024 take 17 g by mouth every twenty-four hours as needed for constipation 17 g, Oral, Daily PRN, constipation, Starting on Tue06/14/24 at 0907, 1st line for treatment of constipation - give scheduled if no bowel movement in past 24 hours. vitamin tablet (2 sources) Start: 06-14-2024 End: 06-16-2024 take 1 tablet by mouth once daily 1 tablet, Oral, Daily, First dose on Tue06/14/24 at 1120 50 ml sodium chloride 9 mg/ml injection (2 sources) Start: 06-14-2024 End: 06-14-2024 1,000 mL, IntraVENous, at 1,000 mL/hr, Administer over 1 Hours, Once, On Tue06/14/24 at 0135, For 1 dose Problems Active Problems Problem Classification Problem Date Documented Da te Episodic/Chronic Bacterial infection; unspecified site (2 sources) Other specified bacterial agents as the cause of diseases classified elsewhere; Translations: [Other specified bacterial agents as the cause of diseases classified elsewhere] Onset: 09-04-2024 Episodic Deficiency and other anemia (3 sources) Microcytic anemia; Translations: [Iron deficiency anemia, unspecified] 07-16-2023 Episodic Deficiency and other anemia (1 source) Iron deficiency anemia secondary to inadequate dietary iron intake; Translations: [Other iron deficiency anemias] 08-10-2024 Episodic Deficiency and other anemia (2 sources) Iron deficiency anemia, unspecified; Translations: [Iron deficiency anemia, unspecified] Onset: 06-25-2024 Episodic Inflammatory diseases of female pelvic organs (8 sources) Vaginitis; Translations: [Acute vaginitis] Onset: 09-04-2024 10-12-2022 Episodic Malaise and fatigue (3 sources) Fatigue; Translations: [Other fatigue] 07-16-2023 Episodic Menstrual disorders (3 sources) Amenorrhea; Translations: [Amenorrhea, unspecified] Onset: 06-29-2024 06-29-2024 Chronic Mycoses (2 sources) Candidiasis of vagina; Translations: [Nicki vaginitis] 09-05-2024 Episodic Noninfectious gastroenteritis (3 sources) Chronic diarrhea; Translations: [Noninfective gastroenteritis and colitis, unspecified] 07-16-2023 Episodic Open wounds of head; neck; and trunk (6 sources) Laceration - injury; Translations: [Laceration] 12-19-2020 Episodic Other complications of (2 sources) Pyelonephritis in ; Translations: [Infections of kidney in , unspecified trimester] 06-14-2024 Episodic Other complications of (2 sources) Candidiasis of vagina in ; Translations: [Other maternal infectious and parasitic diseases complicating , unspecified trimester] 09-26-2024 Episodic Other complications of (20 sources) Placenta circumvallata; Translations: [Circumvallate placenta, second trimester] Onset: 10-02-2024 10-10-2024 Episodic Other complications of (2 sources) Circumvallate placenta, second trimester; Translations: [Circumvallate placenta, second trimester] Onset: 11-07-2024 Episodic Other female genital disorders (1 source) Other specified noninflammatory disorders of vagina; Translations: [Other specified noninflammatory disorders of vagina] Onset: 10-02-2024 Episodic Other gastrointestinal disorders (5 sources) Diarrhea; Translations: [Diarrhea, unspecified] 10-12-2022 Episodic [...] Chronic Other nutritional; endocrine; and metabolic disorders (3 sources) Unintentional weight loss; Translations: [Abnormal weight loss] 07-16-2023 Episodic Other nutritional; endocrine; and metabolic disorders (1 source) Weight loss; Translations: [Abnormal weight loss] 07-20-2023 Episodic Other screening for suspected conditions (not mental disorders or infectious disease) (4 sources) Encounter for other specified screening; Translations: [Encounter for screening for cervical length] Onset: 09-12-2024 Episodic Other upper respiratory disease (2 sources) Allergic rhinitis; Translations: [Allergic rhinitis, unspecified] Onset: 01-30-2012 06-17-2022 Chronic Other upper respiratory infections (2 sources) Rhinitis; Translations: [Acute nasopharyngitis [common cold]] 09-26-2024 Episodic Screening and history of mental health and substance abuse codes (20 sources) H/O: anorexia nervosa; Translations: [Personal history of other mental and behavioral disorders] Onset: 10-10-2024 10-10-2024 Episodic Superficial injury; contusion (6 sources) Contusion of hand; Translations: [Contusion of right hand, initial encounter] 01-22-2022 Episodic Syncope (4 sources) Syncope; Translations: [Syncope and collapse] 12-08-2022 Episodic Unclassified (20 sources) OB Reminders Onset: 07-19-2024 07-19-2024 Unclassified (20 sources) Patient Stated Goal Onset: 07-19-2024 07-19-2024 Unclassified (1 source) Acute candidiasis of vulva and vagina; Translations: [Acute candidiasis of vulva and vagina] Onset: 09-04-2024 Unclassified (1 source) Acute cough; Translations: [Acute cough] Onset: 05-27-2024 Past or Other Problems Problem Classification Problem Date Documented Da te Episodic/Chronic Abdominal pain (6 sources) Lower abdominal pain; Translations: [Lower abdominal pain, unspecified] Onset: 05-06-2024 05-06-2024 Episodic Conditions associated with dizziness or vertigo (2 sources) Dizziness; Translations: [Dizziness] Onset: 08-06-2024 Episodic Deficiency and other anemia (20 sources) Iron deficiency anemia; Translations: [Iron deficiency anemia, unspecified] Onset: 06-25-2024 06-25-2024 Episodic Disorders of teeth and jaw (5 sources) Pain; Translations: [Dental caries, unspecified] Onset: 06-10-2024 06-02-2024 Episodic Genitourinary symptoms and ill-defined conditions (9 sources) Dysuria; Translations: [Dysuria] Onset: 05-27-2024 05-27-2024 Episodic Hemorrhage during ; abruptio placenta; placenta previa (5 sources) Threatened miscarriage; Translations: [Threatened ] Onset: 06-29-2024 06-14-2024 Episodic Other complications of (20 sources) Urinary tract infection in ; Translations: [Unspecified infection of urinary tract in , first trimester] Onset: 06-14-2024 Resolved: 11-07-2024 06-14-2024 Episodic Other complications of (2 sources) Unspecified infection of urinary tract in , first trimester; Translations: [Unspecified infection of urinary tract in , first trimester] Onset: 06-14-2024 Episodic Other complications of (2 sources) Infections of kidney in , unspecified trimester; Translations: [Infections of kidney in , unspecified trimester] Onset: 06-14-2024 Episodic Other and delivery including normal (20 sources) ; Translations: [Encounter for supervision of normal first , unspecified trimester] Onset: 07-04-2024 07-17-2024 Episodic Substance-related disorders (20 sources) Nicotine dependence; Translations: [Nicotine dependence, other tobacco product, uncomplicated] Onset: 07-17-2024 Resolved: 10-10-2024 07-17-2024 Chronic Unclassified (3 sources) Acute cough; Translations: [Acute cough] Onset: 05-27-2024 05-27-2024 Unclassified (1 source) Acute candidiasis of vulva and vagina; Translations: [Acute candidiasis of vulva and vagina] Onset: 09-04-2024 Urinary tract infections (6 sources) Acute cystitis; Translations: [Acute cystitis with hematuria] Onset: 05-06-2024 05-06-2024 Episodic Results Test Name Value Interpretation Reference Range Facil ity (ROM) Rupture Of Membraneson 11-23-2024 ROM Negative Normal Negative [facility] Comment on above: Result Comment: Amni otic fluid not present indicates No Rupture of Membranes at time of specimen collection. Performed By: #### L 205.1000 #### [facility] [address] [place], [address] Absolute lymphocyte countOrd ered By: Alyx Navarro on 11-23-2024 Lymphocytes Auto (Unsp spec) [#/Vol] 1.30 10*3/uL 0.83-4.51 [facility] Absolute neutrophil countOrd ered By: Alyx Navarro on 11-23-2024 Neutrophils (Bld) [#/Vol] 4.8 10*3/uL 2.0-7.7 [facility] Anion gap in Serum or Plasma Ordered By: Alyx Navarro on 11-23-2024 Anion gap [Moles/Vol] 11 mmol/L 5-15 [facility] Automated lymphocyte count a s percentage of total leukocytesOrdered By: Alyx Navarro on 11-23-2024 Lymphocytes/100 WBC Auto (Unsp spec) 18.0 % Low 19-41 [facility] BUN/creatinine ratioOrdered By: Alyxjasmyn Navarro on 11-23-2024 Urea nitrogen/Creatinine [Mass ratio] 9.1 mg/mg Low 10-20 [facility] Bacterial vaginosis and vagi nitis rRNA panel Probe (Vag fld)on 11-23-2024 Bacterial vaginosis Ql (Vag fld) [Interp] Not detected Not Detected [facility] C. glabrata DNA LATRICE+probe Ql (Vag fld) Not detected Not Detected [facility] Nicki sp DNA LATRICE+probe Ql (Vag fld) Detected Abnormal Not Detected [facility] Interpretation and review of laboratory results Abnormal [facility] T. vaginalis DNA LATRICE+probe Ql (Vag fld) Not detected Not Detected [facility] Methodology: real-time PCR A negative result does [...] sexual abuse or for other forensic purposes. [facility] Basophil percentageOrdered B y: Alyx Ramon on 11-23-2024 Basophils/100 WBC (Bld) 0.4 % 0-1 [facility] Bilirubin Test strip Ql (U)O rdered By: Alyxjasmyn Navarro on 11-23-2024 Bilirubin Ql (U) Negative Negative [facility] Bilirubin, totalOrdered By: Alyx Moreaujulio c on 11-23-2024 Bilirubin [Mass/Vol] mg/dL 0.00-1.30 [facility] CBC W/Diff, Automatedon Absolute Lymph 1.30 X10 3/uL Normal 0.83-4.51 [facility] Comment on above: Performed By: #### L 100.0100 #### [facility] [address] [place], [address] Absolute Neut 4.8 X10 3/uL Normal 2.0-7.7 [facility] Comment on above: Performed By: #### L 100.0100 #### [facility] [address] [place], [address] Basophils/100 WBC (Bld) 0.4 % Normal 0-1 [facility] Comment on above: Performed By: #### L 100.0100 #### [facility] [address] [place], [address] Eosinophils/100 WBC (Bld) 1.9 % Normal 0-5 [facility] Comment on above: Performed By: #### L 100.0100 #### [facility] [address] [place], [address] Erythrocyte distribution width (RBC) [Ratio] 12.8 % Normal 11.6-14.6 [facility] Comment on above: Performed By: #### L 100.0100 #### [facility] [address] [place], [address] Hematocrit (Bld) [Volume fraction] 29.6 % Low 37-47 [facility] Comment on above: Performed By: #### L 100.0100 #### [facility] [address] [place], [address] Hemoglobin (Bld) [Mass/Vol] 9.7 g/dL Low 12.0-15.0 [facility] Comment on above: Performed By: #### L 100.0100 #### [facility] [address] [place], [address] IG% 1.800 High 0.0-0.9 [facility] Comment on above: Result Comment: IG% - Immature Granulocytes (promyelocytes, myelocytes and metamyelocytes) > 1% indicates that a LEFT SHIFT is Present. Performed By: #### L 100.0100 #### [facility] [address] [place], [address] Lymphocytes/100 WBC (Bld) 18.0 % Low 19-41 [facility] Comment on above: Performed By: #### L 100.0100 #### [facility] [address] [place], [address] MCH (RBC) [Entitic mass] 27.2 pg Normal 27.0-32.0 [facility] Comment on above: Performed By: #### L 100.0100 #### [facility] [address] [place], [address] MCHC (RBC) [Mass/Vol] 32.8 g/dL Normal 32-36 [facility] Comment on above: Performed By: #### L 100.0100 #### [facility] [address] [place], [address] MCV (RBC) [Entitic vol] 82.9 fL Normal 81-99 [facility] Comment on above: Performed By: #### L 100.0100 #### [facility] [address] [place], [address] Monocytes/100 WBC (Bld) 11.1 % High 0-10 [facility] Comment on above: Performed By: #### L 100.0100 #### [facility] [address] [place], [address] Neutrophils/100 WBC (Bld) 66.8 % Normal 47-70 [facility] Comment on above: Performed By: #### L 100.0100 #### [facility] [address] [place], [address] Nucleated RBC (Bld) [#/Vol] 0 10*3/uL Normal 0-5 [facility] Comment on above: Performed By: #### L 100.0100 #### [facility] [address] [place], [address] Platelet mean volume (Bld) [Entitic vol] 9.2 fL Normal 6.2-12.0 [facility] Comment on above: Performed By: #### L 100.0100 #### [facility] [address] [place], [address] Platelets (Bld) [#/Vol] 205 10*3/uL Normal 150-450 [facility] Comment on above: Performed By: #### L 100.0100 #### [facility] [address] [place], [address] RBC (Bld) [#/Vol] 3.57 10*6/uL Low 4.2-5.4 [facility] Comment on above: Performed By: #### L 100.0100 #### [facility] [address] [place], [address] RDW SD 39.1 fl Normal 35.1-43.9 [facility] Comment on above: Performed By: #### L 100.0100 #### [facility] [address] [place], [address] WBC (Bld) [#/Vol] 7.2 10*3/uL Normal 4.4-11.0 [facility] Comment on above: Performed By: #### L 100.0100 #### [facility] [address] [place], [address] Carbon dioxide, total [Moles /volume] in Central venous bloodOrdered By: Alyx Navarro on 11-23-2024 CO2 [Moles/Vol] 22.0 mmol/L 21.0-32.0 [facility] Chloride assayOrdered By: Sa ra Navarro on 11-23-2024 Chloride [Moles/Vol] 106 mmol/L 98-108 [facility] Comprehensive Metabolic Prof ilon 11-23-2024 Albumin [Mass/Vol] 3.4 g/dL Low 3.5-5.0 [facility] Comment on above: Performed By: #### L 500.4050, L501.0900, L205.0000, L400.0001 #### [facility] [address] [place], [address] Albumin/Globulin [Mass ratio] 1.3 {ratio} Normal 0.9-2.4 [facility] Comment on above: Performed By: #### L 500.4050, L501.0900, L205.0000, L400.0001 #### [facility] [address] [place], [address] ALK PHOS 105 U/L High 35-104 [facility] Comment on above: Performed By: #### L 500.4050, L501.0900, L205.0000, L400.0001 #### [facility] [address] [place], [address] ALT [Catalytic activity/Vol] 11 U/L Normal <=34 [facility] Comment on above: Performed By: #### L 500.4050, L501.0900, L205.0000, L400.0001 #### [facility] [address] [place], [address] AST [Catalytic activity/Vol] 15 U/L Normal <=31 [facility] Comment on above: Performed By: #### L 500.4050, L501.0900, L205.0000, L400.0001 #### [facility] [address] [place], [address] BUN/CRE 9.1 RATIO Low 10-20 [facility] Comment on above: Performed By: #### L 500.4050, L501.0900, L205.0000, L400.0001 #### [facility] [address] [place], [address] Calcium [Mass/Vol] 8.8 mg/dL Normal 7.6-11.0 [facility] Comment on above: Performed By: #### L 500.4050, L501.0900, L205.0000, L400.0001 #### [facility] [address] [place], [address] Chloride [Moles/Vol] 106 mmol/L Normal 98-108 [facility] Comment on above: Performed By: #### L 500.4050, L501.0900, L205.0000, L400.0001 #### [facility] [address] [place], [address] CO2 [Moles/Vol] 22.0 mmol/L Normal 21.0-32.0 [facility] Comment on above: Performed By: #### L 500.4050, L501.0900, L205.0000, L400.0001 #### [facility] [address] [place], [address] Creatinine [Mass/Vol] 0.55 mg/dL Low 0.70-1.20 [facility] Comment on above: Performed By: #### L 500.4050, L501.0900, L205.0000, L400.0001 #### [facility] [address] [place], [address] GAP 11 Normal 5-15 [facility] Comment on above: Performed By: #### L 500.4050, L501.0900, L205.0000, L400.0001 #### [facility] [address] [place], [address] GFR/1.73 sq M.predicted among non-blacks MDRD (S/P/Bld) [Vol rate/Area] 135 mL/min/{1.73_m2} Normal >60 [facility] Comment on above: Result Comment: mL/m in/1.73m2 CKD-EPI Creatinine Equation (2020) Performed By: #### L 500.4050, L501.0900, L205.0000, L400.0001 #### [facility] [address] [place], [address] Globulin (S) [Mass/Vol] 2.6 g/dL Normal 2.2-4.2 [facility] Comment on above: Performed By: #### L 500.4050, L501.0900, L205.0000, L400.0001 #### [facility] [address] [place], [address] Glucose [Mass/Vol] 78 mg/dL Normal 70-99 [facility] Comment on above: Performed By: #### L 500.4050, L501.0900, L205.0000, L400.0001 #### [facility] [address] [place], [address] Potassium [Moles/Vol] 3.6 mmol/L Normal 3.3-5.1 [facility] Comment on above: Performed By: #### L 500.4050, L501.0900, L205.0000, L400.0001 #### [facility] [address] [place], [address] Sodium [Moles/Vol] 139 mmol/L Normal 133-145 [facility] Comment on above: Performed By: #### L 500.4050, L501.0900, L205.0000, L400.0001 #### [facility] [address] [place], [address] T BILI < 0.15 Normal 0.00-1.30 [facility] Comment on above: Performed By: #### L 500.4050, L501.0900, L205.0000, L400.0001 #### [facility] [address] [place], [address] T PROT 6.0 g/dL Normal 5.9-8.4 [facility] Comment on above: Performed By: #### L 500.4050, L501.0900, L205.0000, L400.0001 #### [facility] [address] [place], [address] Urea nitrogen [Mass/Vol] 5 mg/dL Normal 4-19 [facility] Comment on above: Performed By: #### L 500.4050, L501.0900, L205.0000, L400.0001 #### [facility] [address] [place], [address] Eosinophil percentageOrdered By: Alyx Navarro on 11-23-2024 Eosinophils/100 WBC (Bld) 1.9 % 0-5 [facility] Erythrocyte distribution wid th ratioOrdered By: Alyx Navarro on 11-23-2024 Erythrocyte distribution width (RBC) [Ratio] 12.8 % 11.6-14.6 [facility] Erythrocyte distribution wid th standard deviationOrdered By: Alyx Navarro on 11-23-2024 Erythrocyte distribution width (RBC) [Ratio] 39.1 fl 35.1-43.9 [facility] Fibronectinon 11-24-19 25 fFIBRONECTIN Negative Normal [facility] Comment on above: Performed By: #### L 500.4050, L501.0900, L205.0000, L400.0001 #### [facility] [address] [place], [address] fibronectinOrdered By: Alyx Navarro on 11-23-2024 Fibronectin. (Vag fld) [Mass/Vol] Negative [facility] Glomerular filtration rate ( GFR) estimation/1.73 sq m using serum, plasma, or whole bOrdered By: Alyx Navarro on 11-23-2024 GFR/1.73 sq M.predicted among non-blacks MDRD (S/P/Bld) [Vol rate/Area] 135 mL/min/{1.73_m2} >60 [facility] Comment on above: mL/min/1.73m2 CKD-EP I Creatinine Equation (2020) Hematocrit Auto (Bld) [Volum e fraction]Ordered By: Alyx Navarro on 11-23-2024 Hematocrit (Bld) [Volume fraction] 29.6 % Low 37-47 [facility] Hemoglobin measurementOrdere d By: Alyx Navarro on 11-23-2024 Hemoglobin (Bld) [Mass/Vol] 9.7 g/dL Low 12.0-15.0 [facility] Immature granulocytes/100 WB C Auto (Bld)Ordered By: Alyx Navarro on 11-23-2024 Immature granulocytes/100 WBC (Bld) 1.800 % High 0.0-0.9 [facility] Comment on above: IG% - Immature Granu locytes (promyelocytes, myelocytes and metamyelocytes) > 1% indicates that a LEFT SHIFT is Present. Ketones Test strip Ql (U)Ord ered By: Alyx Navarro on 11-23-2024 Ketones Ql (U) Negative Negative [facility] - Chemistry and C hemistry - challengeOrdered By: Alyx Navarro on 11-23-2024 AST [Catalytic activity/Vol] 15 U/L <32 [facility] MCV (mean corpuscular volume ) determinationOrdered By: Alyx Navarro on 11-23-2024 MCV (RBC) [Entitic vol] 82.9 fL 81-99 [facility] Mean corpuscular hemoglobin (MCH) determinationOrdered By: Alyx Navarro on 11-23-2024 MCH (RBC) [Entitic mass] 27.2 pg 27.0-32.0 [facility] Mean corpuscular hemoglobin concentration (MCHC) determinationOrdered By: Alyx Navarro on 11-23-2024 MCHC (RBC) [Mass/Vol] 32.8 g/dL 32-36 [facility] Mean platelet volume determi nationOrdered By: Alyx Navarro on 11-23-2024 Platelet mean volume (Bld) [Entitic vol] 9.2 fL 6.2-12.0 [facility] Microscopic analysis of urin e for red blood cells (RBC)Ordered By: Alyx Navarro on 11-23-2024 Microscopic analysis of urine for red blood cells (RBC) 0-5 SEEN /hpf 0-5 [facility] Monocyte percentageOrdered B y: Alyx Navarro on 11-23-2024 Monocytes/100 WBC (Bld) 11.1 % High 0-10 [facility] Mucus LM Ql (Urine sed)Order ed By: Alyx Navarro on 11-23-2024 Mucus Ql (Urine sed) 0 SEEN /hpf [facility] Neutrophil percentageOrdered By: Alyx Navarro on 11-23-2024 Neutrophils/100 WBC (Bld) 66.8 % 47-70 [facility] Nitrite Test strip Ql (U)Ord ered By: Alyx Navarro on 11-23-2024 Nitrite Ql (U) Negative Negative [facility] No Panel Informationon 11-23 Extra Tube Hold for add-ons. [facility] ramakrishna Comment on above: Auto resulted. [facility] FERN PATTERN Fern pattern absent [facility] Interpretation and review of laboratory results Normal [facility] Interpretation and review of laboratory results Normal [facility] Nitrazine Paper Test POC Negative [facility] POC Nitrazine Lot Number [id number] [facility] Nucleated red blood cell per centageOrdered By: Alyx Navarro on 11-23-2024 Nucleated RBC/100 WBC (Bld) [Ratio] 0 % 0-5 [facility] Platelet countOrdered By: Sa ra Navarro on 11-23-2024 Platelets (Bld) [#/Vol] 205 10*3/uL 150-450 [facility] Potassium measurement (mass/ volume)Ordered By: Alyx Navarro on 11-23-2024 Potassium (Unsp spec) [Mass/Vol] 3.6 mmol/L 3.3-5.1 [facility] Protein Test strip Ql (U)Ord ered By: Alyx Navarro on 11-23-2024 Protein Ql (U) 15 mg/dl High Negative [facility] Protein+Creatinine Ratio,Uri neon 11-23-2024 PROT:CRE RATIO 173 mg/g CRE Normal 0-200 [facility] Comment on above: Performed By: #### L 500.4050, L501.0900, L205.0000, L400.0001 #### [facility] [address] [place], [address] Protein (U) [Mass/Vol] 15.0 mg/dL High 0.0-12.0 [facility] Comment on above: Performed By: #### L 500.4050, L501.0900, L205.0000, L400.0001 #### [facility] [address] [place], [address] UR CREAT 86.70 mg/dL Normal 28.00-217.00 [facility] Comment on above: Performed By: #### L 500.4050, L501.0900, L205.0000, L400.0001 #### [facility] [address] [place], [address] RBC Auto (Bld) [#/Vol]Ordere d By: Alyx Navarro on 11-23-2024 RBC (Bld) [#/Vol] 3.57 10*6/uL Low 4.2-5.4 [facility] Random urine creatinine brea urement (mass/volume)Ordered By: Alyx Navarro on 11-23-2024 Creatinine Unsp time (U) [Mass/Vol] 86.70 mg/dL 28.00-217.00 [facility] Serum creatinine measurement (mass/volume)Ordered By: Alyx Navarro on 11-23-2024 Creatinine [Mass/Vol] 0.55 mg/dL Low 0.70-1.20 [facility] Serum globulin measurementOr dered By: Alyx Navarro on 11-23-2024 Globulin (S) [Mass/Vol] 2.6 g/dL 2.2-4.2 [facility] Serum glucose measurement (m ass/volume)Ordered By: Alyx Navarro on 11-23-2024 Glucose [Mass/Vol] 78 mg/dL 70-99 [facility] Serum or plasma alanine corral otransferase (ALT) measurementOrdered By: Alyx Navarro on 11-23-2024 ALT [Catalytic activity/Vol] 11 U/L <35 [facility] Serum or plasma albumin brea urement (mass/volume)Ordered By: Alyx Navarro on 11-23-2024 Albumin [Mass/Vol] 3.4 g/dL Low 3.5-5.0 [facility] Serum or plasma albumin/glob ulin mass ratioOrdered By: Alyx Navarro on 11-23-2024 Albumin/Globulin [Mass ratio] 1.3 {ratio} 0.9-2.4 [facility] Serum or plasma alkaline kevin sphatase measurementOrdered By: Alyx Navarro on 11-23-2024 ALP [Catalytic activity/Vol] 105 U/L High 35-104 [facility] Serum or plasma calcium brea urement (mass/volume)Ordered By: Alyx Navarro on 11-23-2024 Calcium [Mass/Vol] 8.8 mg/dL 7.6-11.0 [facility] Serum or plasma urea nitroge n measurement (mass/volume)Ordered By: Alyx Navarro on 11-23-2024 Urea nitrogen [Mass/Vol] 5 mg/dL 4-19 [facility] Sodium levelOrdered By: Alyx Navarro on 11-23-2024 Sodium [Moles/Vol] 139 mmol/L 133-145 [facility] Squamous epithelial cells de tection in urine sediment by light microscopyOrdered By: Alyx Navarro on 11-23-2024 Epithelial cells.squamous LM Ql (Urine sed) 5-10 SEEN /hpf 5-10 [facility] Total proteinOrdered By: Veronique Navarro on 11-23-2024 Protein [Mass/Vol] 6.0 g/dL 5.9-8.4 [facility] Urinalysis complete panel (U )Ordered By: Guadalupe Olsen on 11-23-2024 Bacteria LM.HPF (Urine sed) [#/Area] Few Abnormal Negative /HPF [facility] Bilirubin Ql (U) Negative Negative mg/dL [facility] Clarity (U) Turbid Abnormal Clear [facility] Color (U) Yellow Lt. Yellow [facility] Epithelial cells.squamous LM.HPF (Urine sed) [#/Area] 26-50 [facility] Gl[facility]l (U) Normal Normal (<70) mg/dL [facility] Hemoglobin Ql (U) Negative Negative mg/dL [facility] Hyaline casts Auto (Urine sed) [#/Area] Negative Negative /LPF [facility] Interpretation and review of laboratory results Abnormal [facility] Ketones (U) [Mass/Vol] Negative Negative mg/d L [facility] Leukocyte esterase Test strip Ql (U) 500 Abnormal Negative Herrera/uL [facility] Mucus LM.HPF (Urine sed) [#/Area] Few Negative /LPF [facility] Nitrite Ql (U) Negative Negative [facility] pH (U) 6.5 [pH] 5.0 - 8.0 pH [facility] Protein (U) [Mass/Vol] 30 mg/dL Abnormal Negative [facility] RBC LM.HPF (Urine sed) [#/Area] 3-5 Abnormal [facility] Specific gravity (U) [Rel density] 1.026 1.005 - 1.030 [facility] Urobilinogen (U) [Mass/Vol] Normal Normal (0-1) mg/dL [facility] WBC LM.HPF (Urine sed) [#/Area] 11-25 Abnormal [facility] This specimen has been reflexed to urine culture. [facility] Urinalysis, Completeon 11-23 BACTERIA 1+ /hpf Normal None Seen [facility] Comment on above: Order Comment: Urine , Random Performed By: #### L 500.4050, L501.0900, L205.0000, L400.0001 #### [facility] [address] [place], [address] EPI,SQUAMOUS 5-10 SEEN Normal 5-10 [facility] Comment on above: Order Comment: Urine , Random Performed By: #### L 500.4050, L501.0900, L205.0000, L400.0001 #### [facility] [address] [place], [address] RBC 0-5 SEEN Normal 0-5 [facility] Comment on above: Order Comment: Urine , Random Performed By: #### L 500.4050, L501.0900, L205.0000, L400.0001 #### [facility] [address] [place], [address] WBC 25-50 SEEN Normal 0-5 [facility] Comment on above: Order Comment: Urine , Random Performed By: #### L 500.4050, L501.0900, L205.0000, L400.0001 #### [facility] [address] [place], [address] Mucus Ql (Urine sed) 0 SEEN Normal [facility] Comment on above: Order Comment: Urine , Random Performed By: #### L 500.4050, L501.0900, L205.0000, L400.0001 #### [facility] [address] [place], [address] Urine clarityOrdered By: Veronique Navarro on 11-23-2024 Clarity (U) Sl Cldy Clear [facility] Urine color determinationOrd ered By: Alyx Navarro on 11-23-2024 Color (U) Straw Yellow [facility] Urine glucose detectionOrder ed By: Alyx Navarro on 11-23-2024 Glucose Ql (U) Normal mg/dl Normal [facility] Urine leukocyte esterase det ection by dipstickOrdered By: Alyx Navarro on 11-23-2024 Leukocyte esterase Test strip Ql (U) 500 /ul High Negative [facility] Urine pHOrdered By: Alyx bunch on 11-23-2024 pH (U) 7.0 [pH] 5.0 - 8.0 [facility] Urine protein measurement (m ass/volume)Ordered By: Alyx Navarro on 11-23-2024 Protein (U) [Mass/Vol] 15.0 mg/dL High 0.0-12.0 [facility] Urine protein/creatinine mas s ratioOrdered By: Alyx Navarro on 11-23-2024 Protein/Creatinine (U) [Mass ratio] 173 mg/g CRE 0-200 [facility] Urine sediment bacteria coun t by microscopy (number/high power field)Ordered By: Alyx Navarro on 11-23-2024 Bacteria LM.HPF (Urine sed) [#/Area] 1 /[HPF] None Seen [facility] Urine specific gravity measu rementOrdered By: Alyx Navarro on 11-23-2024 Specific gravity (U) [Rel density] 1.015 1.002-1.030 [facility] Urine urobilinogen measureme ntOrdered By: Alyx Navarro on 11-23-2024 Urobilinogen Ql (U) Normal mg/dl Normal [facility] White blood cell (WBC) count Ordered By: Alyx Navarro on 11-23-2024 WBC (Bld) [#/Vol] 7.2 10*3/uL 4.4-11.0 [facility] White blood cell countOrdere d By: Alyx Navarro on 11-23-2024 White blood cell count 25-50 SEEN /hpf 0-5 [facility] 36on 11-22-2024 36 S: [facility] with complaints of abdominal pain during . B: Symptoms began one day prior to call. Patient is 27W1D . A: Patient reporting 9/10 abdominal cramping pain, nausea, subjective fever, intermittent headaches, 5/10 urinary pain, and contractions. Pain is severe, and patient is lying on the floor at work during triage in an attempt to find relief. Patient reports contractions are fairly rare, estimates about one an hour. Patient states she used antacids, which provided relief yesterday, but not today. Denies reduced activity, vomiting, fever, vaginal bleeding, or vaginal discharge. R: Patient instructed to L&D for evaluation. Patient verbalizes understanding. Reason for Disposition MODERATE-SEVERE abdominal pain (e.g., interferes with normal activities, awakens from sleep) Protocols used: - Abdominal Pain Greater Than 20 Weeks [id number] [id number] 11-21-2024 [id number] Printed [facility] 37on 11-08-2024 37 Your Second Trimester: Care Instructions What [...] the back. Blood in your urine. Normal [facility] CBC (HEMOGRAM)on 11-08-2024 Erythrocyte distribution width (RBC) [Ratio] 13.2 % Normal 11.5-15.0 [facility] Comment on above: Performed By: #### L [id number] ####Application Security Specialist: ISABEL YUSUF ([phone])[facility] ([facility])[address] [place] [address] Hematocrit (Bld) [Volume fraction] 27.4 % Low 35.0-47.0 [facility] Comment on above: Performed By: #### L [id number] ####Application Security Specialist: ISABEL YUSUF ([phone])[facility])[address] [place] [address] Hemoglobin (Bld) [Mass/Vol] 9.0 g/dL Low 11.7-16.0 [facility] Comment on above: Performed By: #### L [id number] ####Application Security Specialist: ISABEL YUSUF ([phone])[facility])[address] [place] [address] MCH (RBC) [Entitic mass] 27.5 pg Normal 26.0-34.0 [facility] Comment on above: Performed By: #### L [id number] ####Application Security Specialist: ISABLE YUSUF ([phone])[facility] ([facility])[address] [place] [address] MCHC 32.8 % Normal 30.5-36.0 [facility] Comment on above: Performed By: #### L [id number] ####Application Security Specialist: ISABEL YUSUF ([phone])[facility] ([facility])[address] [place] [address] MCV (RBC) [Entitic vol] 83.8 fL Normal 77.0-99.0 [facility] Comment on above: Performed By: #### L [id number] ####Application Security Specialist: ISABEL YUSUF ([phone])[facility] ([facility])[address] [place] [address] Platelet mean volume (Bld) [Entitic vol] 9.4 fL Normal 9.0-12.7 [facility] Comment on above: Performed By: #### L [id number] ####Application Security Specialist: ISABEL YUSUF ([phone])[facility] ([facility])[address] [place] [address] Platelets (Bld) [#/Vol] 201 10*3/uL Normal 140-440 [facility] Comment on above: Performed By: #### L [id number] ####Application Security Specialist: ISABEL YUSUF ([phone])[facility])[address] [place] [address] RBC (Bld) [#/Vol] 3.27 10*6/uL Low 3.80-5.20 [facility] Comment on above: Performed By: #### L [id number] ####Application Security Specialist: ISABEL YUSUF ([phone])[facility])[address] [place] [address] WBC (Bld) [#/Vol] 7.6 10*3/uL Normal 3.6-10.7 [facility] Comment on above: Performed By: #### L [id number] ####Application Security Specialist: ISABEL YUSUF ([phone])[facility])[address] [place] [address] CBC panel Auto (Bld)on 11-08 Erythrocyte distribution width (RBC) [Ratio] 13.2 % 11.5 - 15.0 % [facility] Hematocrit (Bld) [Volume fraction] 27.4 % Low 35.0 - 47.0 % [facility] Hemoglobin (Bld) [Mass/Vol] 9 g/dL Low 11.7 - 16.0 g/dL [facility] Interpretation and review of laboratory results Abnormal [facility] MCH (RBC) [Entitic mass] 27.5 pg 26.0 - 34.0 pg [facility] MCHC (RBC) [Mass/Vol] 32.8 % 30.5 - 36.0 % [facility] MCV (RBC) [Entitic vol] 83.8 fL 77.0 - 99.0 fL [facility] Platelet mean volume (Bld) [Entitic vol] 9.4 fL 9.0 - 12.7 fL [facility] Platelets (Bld) [#/Vol] 201 10*3/uL 140 - 440 10*3/uL [facility] RBC (Bld) [#/Vol] 3.27 10*6/uL Low 3.80 - 5.2 0 10*6/uL [employer] [facility] WBC (Bld) [#/Vol] 7.6 10*3/uL 3.6 - 10.7 10*3/uL [facility] GLUCOSE CHALLENGE SCREEN, [place] EGNANCYon 11-08-2024 Glucose [Mass/Vol] 97 mg/dL Normal <=140 [facility] Comment on above: Result Comment: IRENA Chairez COMMENTS: Values >140 mg/dL constitute a positive screen. Positive screens on patients should be followed by a diagnostic three-hour glucose tolerance test (Glucose Tolerance Test; [id number]). Performed By: #### L [id number] ####Application Security Specialist: ISABEL YUSUF ([phone])[facility] ([facility] Laboratory - Chemistry and C hemistry - challengeon 11-08-2024 Glucose 1 Hr post dose glucose [Mass/Vol] 97 mg/dL NINF - 140 mg/dL [facility] No Panel Informationon 11-08 Interpretation and review of laboratory results Normal [facility] Values >140 mg/dL constitute a positive screen. Positive screens on patients should be followed by a diagnostic three-hour glucose tolerance test (Glucose Tolerance Test; [id number]). [facility] Progress Noteon 11-08-2024 Progress Note Cbc today Normal [facility] Progress Note ---- Attestation signed by Lynda Neal MD at 11/09/2024 10:49 PM [facility]: [facility] by the resident. I reviewed and agree with the care provided by the resident during or immediately following the visit including the patient's medical history, the resident's finding in the physical exam, patient's diagnosis and treatment plan. ---- Assessment and Plan: , supervision of first Doing well with no OB complaints Will get Gtt done today Right SI pain is better but now having upper back pain due to excessive strain at work Plan to get tens unit from [employer] [facility] at this time FHR 130 FH 26 10/30 US reviewed with patient, Est. FW: 899 gm 2 lb 66 % AC 86% Continue PNV RTO 4 wks Circumvallate placenta in second trimester 10/30 US: Est. FW: 899 gm 2 lb 66 % AC 86% Hx of anorexia nervosa Patient has been doing Okay with diet Reassurance provided Weight today ___ Iron deficiency anemia Cbc today Chief Complaint Patient presents with Routine Visit 18 y.o. yo at 26w1d Here today for MOHIT No acute complaints. Denies DFM/VB/CTX/LOF ROS: No pelvic pain PE: Vitals: 11/08/24 1245 BP: 101/66 Pulse: 90 Body mass index is 19.67 kg/m?. PE: Gen: NAD, A&Ox3 HEENT: NC/AT, EOMI Abd: nontender, uterus palpable on exam Skin: warm/dry BLE: without edema, non-tender Fundal Height: 26cm FHR: 130 Follow up in about 4 weeks (around 12/06/2024) for Routine OB, FU w/Cates. Normal [facility] Progress Note A smoking pipe coater was offered to be present during her exam. The patient: DECLINED Normal [facility] Progress Note Pt had blood drawn from her left arm. Pt tolerated well. (Bright and purple tubes) Normal [facility] Progress Noteon 11-07-2024 Progress Note Patient has been doing Okay with diet Reassurance provided Weight today ___ Normal [facility] Progress Note 10/30 US: Est. FW: 899 gm 2 lb 66 % AC 86% Normal [facility] Progress Note Doing well with no OB complaints Will get Gtt done today Right SI pain is better but now having upper back pain due to excessive strain at work Plan to get tens unit from [employer] [facility] at this time FHR 130 FH 26 7 US reviewed with patient, FW: 899 gm 2 lb 66 % AC 86% Continue PNV RTO 4 wks Normal [facility] US OB FOLLOW UP TRANSABDOMIN AL BENEDICTOon 11-01-2024 US OB FOLLOW UP TRANSABDOMINAL APPROACH OBSTETRICS REPORT (Signed Final 11/01/2024 07:22 pm) PATIENT INFO: ID #: [id number] : [birth year] (18 yrs)(F) Name: SUMIT GREEN Visit Date: 10/30/2024 10:48 am PERFORMED BY: Attending: Viji Self MD, FACOG Performed By: Fabian VALLADARES, RDMS Referred By: KARRIE VELÁSQUEZ [facility] Phy.: KI BREEN Location: [facility] Visit Type: Outpatient SERVICE(S) PROVIDED: [place] [address] INDICATIONS: Circumvallate placenta, second trimester O43.112 VITAL SIGNS: Weight (lb): 116 Height: 5'5 BMI: 19.3 EVALUATION: Num Of Fetuses: 1 Heart Rate(bpm): 137 Cardiac Activity: Regular rhythm Lie: Longitudinal Presentation: Cephalic Placenta: Posterior Circumvallate Amniotic Fluid BETZAIDA FV: Appropriate for gestational age BETZAIDA Sum(cm) %Tile Largest Pocket(cm) 20.7 87 6.3 RUQ(cm) RLQ(cm) LUQ(cm) LLQ(cm) 6.3 4.31 5.91 4.18 BIOMETRY: BPD: 66.2 mm G.Age: 26w 5d 93 % OFD: 85 mm HC: 242.1 mm G.Age: 26w 2d 80 % AC: 220.2 mm G.Age: 26w 3d 86 % FL: 46.8 mm G.Age: 25w 4d 60 % LV: 5.02 mm CI: 77.9 % 70 - 86 FL/HC: 19.3 % 18.7 - 20.3 HC/AC: 1.10 1.04 - 1.22 FL/BPD: 70.7 % 71 - 87 FL/AC: 21.3 % - 24 Est. FW: 899 gm 2 lb 66 % GESTATIONAL AGE: LMP: 24w 6d Date: 05/09/24 ARVIND: 02/13/25 U/S Today: w 2d ARVIND: 02/03/25 Best: w 6d Det. By: LMP (05/09/24) ARVIND: 02/13/25 ANATOMY: Cranium: Normal appearance Cavum: Normal appearance Ventricles: Normal appearance Choroid Plexus: Normal appearance Cerebellum: Normal appearance Posterior Fossa: Normal appearance Nuchal Fold: Previously visualized Face: Previously visualized Lips: Previously visualized Palate: Previously visualized Thoracic: Normal appearance Heart: Normal appearing 4 chamber RVOT: Visualized LVOT: Suboptimal views Aortic Arch: Normal appearance Ductal Arch: Normal appearance Diaphragm: Normal appearance Stomach: Normal appearance Abdomen: Normal appearance Abdominal Wall: Normal appearance Cord Vessels: 3-Vessel Cord Kidneys: Normal appearance Bladder: Normal appearance Spine: Previously visualized Upper Extremities: Present Lower Extremities: Present Viji Self MD, FACOG Electronically Signed Final Report 11/01/2024 07:22 pm IMPRESSION: 1. Garcia live intrauterine at 24w 6d. 2. Normal growth; EFW 899 grams, which is at the 66%tile for gestational age. The AC measures at the %tile for gestational age. 3. The amniotic fluid index is 20.7cm, which is within normal limits. 4. Visualized anatomy appears normal as noted above. RECOMMENDATIONS: Follow-up as clinically indicated. Ultrasound is not diagnostic for aneuploidy and will not detect all structural abnormalities, even if multiple exams are performed during a given . Normal ultrasound findings do not guarantee normal outcomes. [facility] Progress Noteon 10-30-2024 Progress Note Patient presents for obstetrical ultrasound 24w6d for Nurse visit Sumit denies Headache Right upper quadrant pain Vision changes Chest pain Shortness of breath Vaginal bleeding Leaking of fluid Contractions LMP 05/09/2024 18 y.o. with no concerns today Sumit was instructed to keep her scheduled visit [facility] 37on 10-10-2024 37 Your Second Trimester: Care Instructions What [...] the back. Blood in your urine. 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 I reviewed and agree with the care provided by the resident during or immediately following the visit including the patient's medical history, the resident's finding in the physical exam, patient's diagnosis and treatment plan. 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 PE: Gen: NAD, A&Ox3 HEENT: NC/AT, EOMI Abd: nontender, uterus palpable on exam Skin: warm/dry BLE: without edema, non-tender Follow up in about 4 weeks (around 11/07/2024) for Routine OB, FU w/Cates,GCT. Normal [facility] Progress Note Shipping And Receiving Coordinator- declined Normal [facility] Emergency Department Summary on 09-26-2024 Emergency Department Summary [facility] Medical Records Department [address] [place] [address] Emergency Department Summary 09/26/24 MR#: [id number] Acct: [id number] Name: SUMIT GREEN Rep #: [id number] : 2005 18 From: Reji Garcia MD PCP: Care Physician,No Primary Status:DEP ER Location: ED HPI HPI - Female History of Present Illness Chief Complaint: Female C/O Informant: patient and spouse/S.O. 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 She has had thick white heterogeneous vaginal discharge for about 1 week along with some external vaginal itching, feels like a yeast infection she has had before. Also, she has had 3 days of rhinorrhea that is at times green, nasal congestion, mild sore throat, occasional earaches and occasional sinus pressure. Her significant other just had the same thing but resolved after 3 to 4 days. She denies any fevers or chills or coughing or dyspnea. No abdominal pain. No vaginal bleeding. States she was treated for BV the 1- 2 weeks ago, and this seems a little different than that. Also states that during this she was tested for GC and chlamydia and tested negative, and denies any exposure to it that she knows of, she is monogamous with her significant other. [facility] Medical History Bipolar 1 disorder Medical History no medical history Home Medications ???Medication ???Instructions ???Recorded ???Last Taken ???Type ibuprofen 600 mg tablet 600 mg PO Q8H PRN fever or pain Unknown Rx #30 tabs penicillin V potassium 500 mg 500 mg PO Q6H 7 days #28 tabs 04/27 05/19 Unknown Rx tablet miconazole nitrate 2 % vaginal 1 appful vaginal QHS 7 days #45 Unknown Rx cream (Miconazole-7) grams Allergy/AdvReac Type Severity Reaction Status Date / Time No Known Allergies Allergy Verified 09/26/24 07:09 Social History household members: significant other Smoking Status: Never smoker ROS ROS ED Constitutional Constitutional ED: Denies chills or fever(s) ENT ENT ED: Reports ear pain bilateral (off and on), rhinorrhea, sore throat and other Details: sinus pressure at times Cardiovascular Cardiovascular: Denies chest pain Respiratory/Chest Respiratory/Chest: Denies cough or dyspnea Gastrointestinal Gastrointestinal: Denies abdominal pain, nausea or vomiting Genitourinary Genitourinary ED: Denies dysuria or hematuria Integumentary Denies rash EXAM Physical Exam Const Vital Signs: 09/26/24 07:10 Temperature 97.5 F L Temperature Source Temporal Pulse Rate 93 Respiratory Rate 18 Blood Pressure 109/71 Blood Pressure Mean 83 Pulse Ox 97 Oxygen Delivery Method Room Air Positive well nourished and well developed General Appearance ED: well developed and NAD HEENT Reports TM's clear and moist mucous membranes HEENT Narrative: POP clear. no purulent nasal discharge. no sinus tenderness. normocephalic and atraumatic Tympanic Membrane ED: Yes TM's clear Eyes PERRL and EOMs intact bilaterally Neck full ROM, no lymphadenopathy and supple Resp normal respiratory effort and clear to auscultation bilaterally GI non-tender Auscultation: normoactive bowel sounds Palpation: soft Narrative: pelvic deferred Back/Spine General Back: other FROM Extremity normal to inspection General Extremety ED: Negative for edema General Extremity: Negative for edema Neuro oriented x3, CN's II-XII intact bilaterally and no sensory deficits noted Sensorium / Orientation: awake and alert Motor Exam: strength 5/5 throughout Skin no rashes or lesions noted and no wounds MDM MDM MDM Narrative Medical decision making narrative: Given lack of abdominal/systemic symptoms I think reasonable to treat her empirically for vaginal candidiasis without a pelvic which she is comfortable with and prefers. I gave her a list of safe raea-skk-ulnjtaa medications to take during , with regards to the rhinorrhea if it is not allergic it is probably viral. There is no evidence of bacterial infection here, so I do not think she needs any antibiotics I did prescribe her miconazole topical for 7 days, and advised her to follow-up with her machine trimmer. Discharge Plan Triage Chief Complaint: Female C/O Other Complaint: Other, Pain/Inj ED Provider: Reji Garcia Dx/Rx/DC Orders Clinical Impression: Candidiasis of vagina during , Acute rhinitis, Second trimester Instructions: Candidiasis Vaginal Prescriptions: New miconazole nitrate [Miconazole-7] 2 % cream (more content not included)... Normal [facility] 37on 09-12-2024 37 Your Second Trimester: Care [...] the back. Blood in your urine. Normal [facility] COMPLETE URINALYSISon 2024 BILIRUBIN, TOTAL PRESENCE IN URINE Negative Normal Negative [facility] Comment on above: Performed By: #### L [id number] ####Application Security Specialist: ISABEL YUSUF ([phone])[facility] ([facility])[address] [place] [address] Clarity (U) Clear Normal Clear [facility] Comment on above: Performed By: #### L [id number] ####Application Security Specialist: ISABEL YUSUF ([phone])[facility])[address] [place] [address] Color (U) Light Yellow Normal Lt. Yellow [facility] Comment on above: Performed By: #### L [id number] ####Application Security Specialist: ISABEL YUSUF ([phone])[facility])[address] [place] [address] GLUCOSE (MG/DL) IN URINE Normal Normal Normal (<70 ) [facility] Comment on above: Performed By: #### L [id number] ####Application Security Specialist: ISABEL YUSUF ([phone])[facility] ([facility])[address] [place] [address] HEMOGLOBIN PRESENCE IN URINE Negative Normal Negative [facility] Comment on above: Performed By: #### L [id number] ####Application Security Specialist: ISABEL YUSUF ([phone])[facility])[address] [place] [address] Ketones Ql (U) 20 mg/dL Abnormal Negative [facility] Comment on above: Performed By: #### L [id number] ####Application Security Specialist: ISABEL YUSUF ([phone])[facility] ([facility])[address] [place] [address] LEUKOCYTE ESTERASE PRESENCE IN URINE BY TEST STRIP Negative Normal Negative [facility] Comment on above: Performed By: #### L [id number] ####Application Security Specialist: ISABEL YUSUF ([phone])[facility])[address] [place] [address] NITRITE PRESENCE IN URINE Negative Normal Negative [facility] Comment on above: Performed By: #### L [id number] ####Application Security Specialist: ISABEL YUSUF ([phone])[facility] ([facility])[address] [place] [address] pH (U) 7.0 [pH] Normal 5.0-8.0 [facility] Comment on above: Performed By: #### L [id number] ####Application Security Specialist: ISABEL YUSUF ([phone])[facility])[address] [place] [address] Protein (U) [Mass/Vol] Negative Normal Negative [facility] Comment on above: Performed By: #### L [id number] ####Application Security Specialist: ISABEL YUSUF ([phone])[facility])[address] [place] [address] Specific gravity (U) [Rel density] 1.010 Normal 1.005-1.030 [facility] Comment on above: Performed By: #### L [id number] ####Application Security Specialist: ISABEL YUSUF ([phone])[facility] ([facility])[address] [place] [address] UROBILINOGEN (MG/DL) IN URINE Normal Normal Normal (0-1) [facility] Comment on above: Performed By: #### L [id number] ####Application Security Specialist: ISABEL YUSUF ([phone])[facility])[address] [place] [address] Progress Noteon 09-12-2024 Progress Note ---- Attestation signed by Lynda Neal MD at 09/12/2024 11:23 AM [facility]: This patient was seen in the [facility] by the resident. I reviewed [...] weeks (around 10/10/2024) for Routine OB. 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 Normal [facility] URINE CULTUREon 09-12-2024 Bacteria identified Cx Nom (U) URINE CULTURE Reference No growth (<1,000 CFU/mL) [ S = SUSCEPTIBLE R = RESISTANT I = INTERMEDIATE S-DD = Susceptible-dose dependent NS = Non-susceptible NO = No Interpretation ] Normal [facility] Comment on above: Performed By: #### L [id number] #### Application Security Specialist: ISABEL YUSUF ([phone]) [facility] ([facility]) [address] [place] [address] US OB DETAIL ANATOMY T RANSABDOMINALon 09-12-2024 US OB DETAIL ANATOMY TRANSABDOMINAL OBSTETRICS REPORT (Signed Final 09/12/2024 04:22 pm) PATIENT INFO: ID #: [id number] : [birth year] (18 yrs)(F) Name: SUMIT GREEN Visit Date: 09/12/2024 09:51 am PERFORMED BY: Attending: Tegan Bautista MD, KEVIN, FACOG Performed By: Tracy Sibley RDMS Referred By: KARRIE Layton Phy.: KI BREEN Location: [facility] Visit Type: Outpatient SERVICE(S) PROVIDED: Level II complete (Targeted OB) 08185 US Transvaginal 08215 INDICATIONS: Encounter for supervision of normal first [...] Normal appearance Interventr. Septum: Normal appearance Cardiac Ethel: Normal appearance Diaphragm: Normal appearance 3 Vessel [...] unremarkable. ----- (more content not included)... Normal [facility] OB TRANSVAGINALon 025 OB TRANSVAGINAL OBSTETRICS REPORT (Signed Final 09/12/2024 04:22 pm) PATIENT INFO: ID #: [id number] : [birth year] (18 yrs)(F) Name: SUMIT GREEN Visit Date: 09/12/2024 09:51 am PERFORMED BY: Attending: Tegan Bautista MD, KEVIN, FACOG Performed By: Tracy Sibley RDMS Referred By: KARRIE VELÁSQUEZ [facility] Phy.: KI BREEN Location: [facility] Visit Type: Outpatient SERVICE(S) PROVIDED: US Level II complete (Targeted OB) 88209 US Transvaginal 15004 INDICATIONS: Encounter for supervision of normal first [...] Normal appearance Interventr. Septum: Normal appearance Cardiac Ethel: Normal appearance Diaphragm: Normal appearance 3 Vessel [...] unremarkable. ----- (more content not included)... Normal [facility] Urinalysis complete panel (U )Ordered By: Agustina Pena on 09-12-2024 Bilirubin Ql (U) Negative Negative mg/dL [facility] Clarity (U) Clear Clear [facility] Color (U) Light Yellow Lt. Yellow [facility] Glucose Ql (U) Normal Normal (<70) mg/dL [facility] Hemoglobin Ql (U) Negative Negative mg/dL [facility] Interpretation and review of laboratory results Abnormal [facility] Ketones (U) [Mass/Vol] 20 mg/dL Abnormal Negative [facility] Leukocyte esterase Test strip Ql (U) Negative Negative Herrera/uL [facility] Nitrite Ql (U) Negative Negative [facility] pH (U) 7.0 [pH] 5.0 - 8.0 pH [facility] Protein (U) [Mass/Vol] Negative Negative mg/d L [facility] Specific gravity (U) [Rel density] 1.01 1.005 - 1.030 [facility] Urobilinogen (U) [Mass/Vol] Normal Normal (0-1) mg/dL [facility] Progress Noteon 09-10-2024 Progress Note Negative urine culture 09/04 Repeat UA and culture today as she feels like she might be having some UTI symptoms and also reports history of kidney stones Normal [facility] Progress Note rCBC ordered for 24wk Normal [facility] Progress Note Doing well, No OB complaints BP normotensive FHR: 150s Anatomy US today, read pending Reviewed triage precautions GTT and rCBC ordered for 24wk Normal [facility] Progress Note Patient states she is not using any type of nicotine product at this time she has slowly stopped using the patches continued cessation encouraged Normal [facility] Bacteria identified Cx Nom ( U)Ordered By: Love Vergara on 09-05-2024 Interpretation and review of laboratory results Normal [facility] Bacterial vaginosis and vagi nitis rRNA panel Probe (Vag fld)on 09-05-2024 Bacterial vaginosis Ql (Vag fld) [Interp] Detected Abnormal Not Detected [facility] C. glabrata DNA LATRICE+probe Ql (Vag fld) Not detected Not Detected [facility] Nicki sp DNA LATRICE+probe Ql (Vag fld) Detected Abnormal Not Detected [facility] Interpretation and review of laboratory results Abnormal [facility] T. vaginalis DNA LATRICE+probe Ql (Vag fld) Not detected Not Detected [facility] Methodology: real-time PCR A negative result does [...] sexual abuse or for other forensic purposes. [facility] ED Nursing Noteon 09-05-2024 ED Nursing Note Discharge instructions reviewed with pt and she had no further questions. Pt walked out with a steady gait observed and no distress noted. Normal [facility] Laboratory - Microbiology an d Antimicrobial susceptibilityOrdered By: Love Vergara on 09-05-2024 Bacteria identified Cx Nom (U) Normal urogenital maira present [facility] N. gonorrhoeae DNA LATRICE+probe Ql (Cervical mucus)on 09-05-2024 C. trachomatis DNA LATRICE+probe Ql (Unsp spec) Not detected Not Detected [facility] Interpretation and review of laboratory results Normal [facility] N gonorrhoeae, DNA Probe Not detected Not Detec génesis [facility] Methodology: real-time PCR This test is intended [...] specimen should be collected if clinically indicated. [facility] T. vaginalis DNA LATRICE+probe Q l (Genital specimen)on 09-05-2024 Interpretation and review of laboratory results Normal [facility] Trichomonas vaginalis Not detected Not Detected [facility] Methodology: real-time PCR A negative result does [...] sexual abuse or for other forensic purposes. [facility] US RETROPERITONEALon 025 RETROPERITONEAL [facility] 2005 [id number] Exam Date/Time: 09/04/2024 00:45 Procedure: US RETROPERITONEAL [...] Electronically Signed Date/Time: 09/05/2024 1:30 AM EDT [facility] US Retroperitoneumon 025 1. Nonobstructing left lower pole renal calculus measuring 0.5 cm. 2. No hydronephrosis. Report Dictated on Electronically Signed By: Dru Caban MD Electronically Signed Date/Time: 09/05/2024 1:30 AM T [facility] Patient Name: SUMIT GREEN : 2005 [...] Cyst: none Bladder: Mostly collapsed. Limited visualization [facility] Dru Caban MD - 09/05/2024 [...] Electronically Signed Date/Time: 09/05/2024 1:30 AM EDT [facility] RetroperitoneumOrdered By : Dru Caban on 09-05-2024 [facility] truedash Work Phone: CHLAMYDIA/GONORRHEAon 2024 CHLAMYDIA/GONORRHEA NEISSERIA GONORRHOEAE [...] should be collected if clinically indicated. Normal [facility] Comment on above: Performed By: #### L [id number] ####Application Security Specialist: ISABEL YUSUF ([phone])[address] COMPLETE URINALYSIS WITH REF DAMIEN TO CULTUREon 09-04-2024 BACTERIA (#/HPF) IN URINE Many Abnormal Negative [facility] Comment on above: Performed By: #### L [id number] ####Application Security Specialist: ISABEL YUSUF ([phone])[facility] ([facility])[address] [place] [address] [place]#### [id number] ####Application Security Specialist: ISABEL YUSUF ([phone])[facility] ([facility])[address] [place] [address] BILIRUBIN, TOTAL PRESENCE IN URINE Negative Normal Negative [facility] Comment on above: Performed By: #### L [id number] ####Application Security Specialist: ISABEL YUSUF ([id number])[facility] ([facility])[address] [place] [address]#### [id number] ####Application Security Specialist: ISABEL YUSUF ([phone])[facility] ([facility])[address] [place] [address] CALCIUM OXALATE CRYSTALS (#/HPF) IN URINE Few Abnormal Negative [facility] Comment on above: Performed By: #### L [id number] ####Application Security Specialist: ISABEL YUSUF ([phone])[facility] ([facility])[address] [place] [address]#### [id number] ####Application Security Specialist: ISABEL YUSUF ([phone])[facility] ([facility])[address] [place] [address] Clarity (U) Extra Turbid Abnormal Clear [facility] Comment on above: Performed By: #### L [id number] ####Application Security Specialist: ISABEL YUSUF ([phone])[facility] ([facility])[address] [place] [address] [place]#### [id number] ####Application Security Specialist: ISABEL YUSUF ([phone])[facility] ([facility])[address] [place] [address] Color (U) Yellow Normal Lt. Yellow [facility] Comment on above: Performed By: #### L [id number] ####Application Security Specialist: ISABEL YUSUF ([phone])[facility] ([facility])[address] [place] [address] [place]#### [id number] ####Application Security Specialist: ISABEL YUSUF ([phone])[facility] ([facility])[address] [place] [address] GLUCOSE (MG/DL) IN URINE Normal Normal Normal (<70 ) [facility] Comment on above: Performed By: #### L [id number] ####Application Security Specialist: ISABEL YUSUF ([phone])[facility] ([facility])[address] [place] [address]#### [id number] ####Application Security Specialist: ISABEL YUSUF ([phone])[facility] ([facility])[address] [place] [address] HEMOGLOBIN PRESENCE IN URINE Negative Normal Negative [facility] Comment on above: Performed By: #### L [id number] ####Application Security Specialist: ISABEL YUSUF ([phone])[facility] ([facility])[address] [place] [address]#### [id number] ####Application Security Specialist: ISABEL YUSUF ([id number])[facility] ([facility])[address] [place] [address] Ketones Ql (U) Negative Normal Negative [facility] Comment on above: Performed By: #### L [id number] ####Application Security Specialist: ISABEL YUSUF ([phone])[facility] ([facility])[address] [place] [address] [place]#### [id number] ####Application Security Specialist: ISABEL YUSUF ([phone])[facility] ([facility])[address] [place] [address] LEUKOCYTE ESTERASE PRESENCE IN URINE BY TEST STRIP 500 Herrera/uL Abnormal Negative [facility] Comment on above: Performed By: #### L [id number] ####Application Security Specialist: ISABEL YUSUF ([phone])[facility] ([facility])[address] [place] [address]#### [id number] ####Application Security Specialist: ISABEL YUSUF ([phone])[facility] ([facility])[address] [place] [address] NITRITE PRESENCE IN URINE Negative Normal Negative [facility] Comment on above: Performed By: #### L [id number] ####Application Security Specialist: ISABEL YUSUF ([phone])[facility]ITALJasmyn IRA [facility]TMAN (SWRLAB)[address] [place] [address]#### [id number] ####Application Security Specialist: ISABEL YUSUF ([phone])[facility] (SACLAB)[address] [place] [address] pH (U) 6.0 [pH] Normal 5.0-8.0 [facility] Comment on above: Performed By: #### L [id number] ####Application Security Specialist: ISABEL YUSUF ([phone])[facility]OS[facility]ITALJasmyn DIEUDONNE RITTMAN (SWRLAB)[address] [place] [address]#### [id number] ####Application Security Specialist: ISABEL YUSUF ([phone])[facility] (SACLAB)[address] [place] [address] Protein (U) [Mass/Vol] 20 mg/dL Abnormal Negative [facility] Comment on above: Performed By: #### L [id number] ####Application Security Specialist: ISABEL YUSUF ([phone])[facility]OS[facility]ITALJasmyn DIEUDONNE RITTMAN (SWRLAB)[address] [place] [address] [place]#### [id number] ####Application Security Specialist: ISABEL YUSUF ([phone])[facility] (SACLAB)[address] [place] [address] [place] RBC (#/HPF) IN URINE SEDIMENT 3-5 Abnormal 0-2 [facility] Comment on above: Performed By: #### L [id number] ####Application Security Specialist: ISABEL YUSUF ([phone])[facility]PITALDIEUDONNECENTRAL [facility] HOSPITALAN (SWRLAB)[address] [place] [address]#### [id number] ####Application Security Specialist: ISABEL YUSUF ([phone])[facility] (SACLAB)[address] [place] [address] Specific gravity (U) [Rel density] 1.019 Normal 1.005-1.030 [facility] Comment on above: Result Comment: IRENA Chairez COMMENTS: A specimen with <=10 WBC is not consistent with inflammation. This specimen will not reflex to a urine culture. This specimen has been reflexed to urine culture. Performed By: #### L [id number] ####Application Security Specialist: ISABEL YUSUF ([phone])[facility]OSPITALDIEUDONNECENTRAL PARK HOSPITALDENISE (SWRLAB)[address] [place] [address]#### [id number] ####Application Security Specialist: ISABEL YUSUF ([phone])[facility] ([facility])[address] [place] [address] SQUAMOUS EPITHELIAL CELLS (#/HPF) IN URINE SEDIMENT 11-25 Abnormal 3-5 [facility] Comment on above: Performed By: #### L [id number] ####Application Security Specialist: ISABEL YUSUF ([phone])[facility]ITALDIEUDONNECENTR[facility]PITALAN (SWRLAB)[address] [place] [address]#### [id number] ####Application Security Specialist: ISABEL YUSUF ([phone])[facility] ([facility])[address] [place] [address] UROBILINOGEN (MG/DL) IN URINE Normal Normal Normal (0-1) [facility] Comment on above: Performed By: #### L [id number] ####Application Security Specialist: ISABEL YUSUF ([phone])[facility]PITALDIEUDONNECENTR[facility]OSPITALAN (SWRLAB)[address] [place] [address]#### [id number] ####Application Security Specialist: ISABEL YUSUF ([phone])[facility] ([facility])[address] [place] [address] VOLUME OF URINE 8-12 mL Normal [facility] Comment on above: Performed By: #### L [id number] ####Application Security Specialist: ISABEL YUSUF ([phone])[facility] (SWRLAB)[address] [place] [address] [place]#### [id number] ####Application Security Specialist: ISABEL YUSUF ([phone])[facility] (SACLAB)[address] [place] [address] WBC (LEUKOCYTE) (#/HPF) IN URINE SEDIMENT 11-25 Abnormal 0-5 [facility] Comment on above: Performed By: #### L [id number] ####Application Security Specialist: ISABEL YUSUF ([phone])[facility] (SWRLAB)[address] [place] [address]#### [id number] ####Application Security Specialist: ISABEL YUSUF ([phone])[facility] (SACLAB)[address] [place] [address] ED Nursing Noteon 09-04-2024 ED Nursing Note Patient and significant other exited [facility] ED for an ED to ED transfer to [facility] so that patient can get the ordered ultrasound. Patient IV in place upon leaving [facility] as per provider permission. Patient verbalized understanding of instructions and departed without incident. Normal [facility] ED Nursing Note Report called to Charge nurse Yin RN for ED to ED transfer. Pt traveling by private car. Normal [facility] ED Nursing Note heart tones assessed 153 bpm. Normal [facility] ED Nursing Note Pt ambulatory to [...] any dysuria. Pt reports having diarrhea. Normal [facility] ED Provider Noteon ED Provider Note EMERGENCY DEPARTMENT ENCOUNTER Pt Name: Sumit PAZN: [id number] Birthdate 2005 Date of evaluation: 09/04/2024 ED [...] . Patient has been following with her ENTERER appointments. Patient was seen at [facility] ED and transferred to [facility] to obtain retroperitoneum ultrasound since [facility] does not have those capabilities with [...] as needed for wheezing., Starting 05/27/2024, Until Tu06/26/2024 at 2359, Normal doxylamine (Unisom) 25 MG tablet Take 1 tablet (25 mg) by mouth Nightly as needed for sleep., Starting Tue08/10/2024, Until 12/08/2024 at 2359, Normal ferrous sulfate 325 (65 Fe) MG tablet Take 325 mg by mouth daily (with breakfast)., Historical Med nicotine (Nicoderm, Step 3) 7 MG/24HR patch Place 1 patch on the skin Every 24 hours., Starting Tue06/29/2024, Until 10/27/2024, Normal 27-1 MG tablet Take 1 tablet by mouth daily., Starting 06/16/2024, Normal pyridoxine (Vitamin B-6) 25 MG tablet Take 1 tablet (25 mg) by mouth every 8 hours., Starting Tue06/29/2024, Until Chastity 09/27/2024, Normal ALLERGIES Patient has no known allergies. FAMILY HISTORY Family History[3] SOCIAL HISTORY Social History[4] SCREENINGS Broseley Coma Scale Best Eye Response: Spontaneous Best [...] be interpreted (more content not included)... Normal [facility] ED Provider Note EMERGENCY DEPARTMENT ENCOUNTER [...] is alert. Psychiatric: Behavior: Behavior normal. SCREENINGS Broseley Coma Scale Best Eye Response: Spontaneous Best Verbal Response: Oriented Best Motor Response: Follows commands Broseley Coma Scale Score: 15 Medical decision making [...] Prior medical records were reviewed: Ordered by ENTERER IUP [NM] 1342 Urine culture (08/11/24 1125) [...] Calcium oxalate calculus DISPOSITION/PLAN DISPOSITION Transfer To [facility] Ed 09/04/2024 06:41:20 PM To [facility] emergency department for renal r (more content not included)... Normal [facility] TRICHOMONAS VAGINALIS PCRon 09-04-2024 TRICHOMONAS VAGINALIS [...] abuse or for other forensic purposes. Normal [facility] Comment on above: Performed By: #### L [id number] ####Application Security Specialist: ISABEL YUSUF ([phone])[address] URINE CULTUREon 09-04-2024 Bacteria identified Cx Nom (U) URINE CULTURE Reference Normal urogenital maira present [ S = SUSCEPTIBLE R = RESISTANT I = INTERMEDIATE S-DD = Susceptible-dose dependent NS = Non-susceptible NO = No Interpretation ] [facility] Comment on above: Performed By: #### L [id number] ####Application Security Specialist: ISABEL YUSUF ([phone])[facility] JUAN DAVIDDENISE (SWRLAB)[address]#### [id number] ####Application Security Specialist: ISABEL YUSUF ([phone])[facility] (SACLAB)[address] [place] [address] Retroperitoneumon 025 Radiology Study observation (narrative) [facility] Urinalysis complete panel (U )Ordered By: Aurea Crabtree on 09-04-2024 Bacteria LM.HPF (Urine sed) [#/Area] Many Abnormal Negative /HPF [facility] Bilirubin Ql (U) Negative Negative mg/dL [facility] Calcium oxalate crystals LM.HPF (Urine sed) [#/Area] Few Abnormal Negative /HPF [facility] Clarity (U) Extra Turbid Abnormal Clear [facility] h Color (U) Yellow Lt. Yellow [facility] Epithelial cells.squamous LM.HPF (Urine sed) [#/Area] 11-25 Abnormal [facility] Glucose Ql (U) Normal Normal (<70) mg/dL [facility] Hemoglobin Ql (U) Negative Negative mg/dL [facility] Interpretation and review of laboratory results Abnormal [facility] Ketones (U) [Mass/Vol] Negative Negative mg/d L [facility] Leukocyte esterase Test strip Ql (U) 500 Abnormal Negative Herrera/uL [facility] Nitrite Ql (U) Negative Negative [facility] th pH (U) 6.0 [pH] 5.0 - 8.0 pH [facility] Protein (U) [Mass/Vol] 20 mg/dL Abnormal Negative [facility] RBC LM.HPF (Urine sed) [#/Area] 3-5 Abnormal [facility] Specific gravity (U) [Rel density] 1.019 1.005 - 1.030 [facility] Urobilinogen (U) [Mass/Vol] Normal Normal (0-1) mg/dL [facility] Volume, Urine 8-12 mL [facility] WBC LM.HPF (Urine sed) [#/Area] 11-25 Abnormal [facility] A specimen with <=10 WBC is not consistent with inflammation. This specimen will not reflex to a urine culture. This specimen has been reflexed to urine culture. [facility] VAGINITIS PANEL MVP PCRon VAGINITIS PANEL MVP [...] abuse or for other forensic purposes. Normal [facility] Comment on above: Performed By: #### L [id number] ####Application Security Specialist: ISABEL YUSUF ([phone])[facility] (SAC[address] 37on 08-10-2024 37 Your Second Trimester: Care [...] the back. Blood in your urine. Normal [facility] Progress Noteon 08-10-2024 Progress Note Hgb 11.0 on NOB labs, plan to repeat around 24 weeks. Normal [facility] Progress Note Patient doing well, having some mild nausea but does not want any stronger medications. She had a dating US but has not gotten NT, will not be able to get her in by 14 weeks. Anatomy scan ordered and message sent to nut grinder. Having a boy. Complaining of dysuria today, she had a E coli UTI in May which was treated with Macrobid. Urine culture sent today. Would like work restrictions as she works at [employer]. Letter in chart. Normal [facility] Progress Note ---- Attestation signed by Ryan Ferrara MD at 08/10/2024 3:44 PM [facility]: This patient was seen in the [facility] by the resident. I reviewed [...] Anatomy scan ordered and message sent to nut grinder. Having a boy. Complaining of dysuria today, she had a E coli UTI in May which was treated with Macrobid. Urine culture sent today. Would like work restrictions as she works at [employer]. Letter in chart. Iron deficiency anemia Hgb [...] 4 weeks (around 09/07/2024) for MOHIT. Normal [facility] URINE CULTUREon 08-10-2024 Bacteria identified Cx Nom (U) URINE CULTURE Reference Normal urogenital maira present [ S = SUSCEPTIBLE R = RESISTANT I = INTERMEDIATE S-DD = Susceptible-dose dependent NS = Non-susceptible NO = No Interpretation ] Normal [facility] Comment on above: Performed By: #### L [id number] #### Application Security Specialist: ISABEL YUSUF ([phone]) [facility]) [address] [place] [address] [id number] 08-07-2024 [id number] Letter sent 08/06 Normal [facility] ECG 12-LEADon 08-07-2024 ECG 12-LEAD IMPRESSION: Sinus rhythm Nonspecific T abnormalities, anterior leads Electronically Signed On 08-07-2024 17:57:20 EDT by Dennis Herman Normal [facility] Laboratory - Chemistry and C hemistry - challengeon 08-06-2024 Glucose [Mass/Vol] 79 mg/dL 70 - 100 mg/dL [facility] No Panel Informationon 08-06 Interpretation and review of laboratory results Normal [facility] Performed by: [facility], [address] [place] [address], [place] [address] CLIA ID: [id number] [facility] Nursing Noteon 08-06-2024 Nursing Note Patient educated on return precautions and discharged home at this time. Pt denies questions Normal [facility] Progress Noteon 08-06-2024 Progress Note [...] with in house Triage Attending Dr. Coughlin BLASTING WORKER PROVIDER: Dr. Machuca DISPOSITION: Discharge to Home [facility] Progress Noteon 07-19-2024 Progress Note Temp- 97.6 Patient here for OB intake. She arrived with FOB and her friend. This will be her first baby. She is possibly transferring to [place], but is unsure. She declines wanting to sign ROR at this time. Patient plans to breastfeed. Benefits of and baby friendly reviewed. Folder reviewed with patient and all relevant teaching completed. Proof of printed and instructions given to sign up for [facility]. She is aware where the [place] office is in her county. TDAP and Flu vaccination encouraged. Patient is active with Mychart. Informed patient on appropriate use of mychart [...] scheduled. All questions answered. Informed pt of [facility] Baggage Security Checker ([facility]), STEVAN Sandoval, NANI at [facility], but she declines at this time. [facility] 37on 07-17-2024 37 Your First Trimester: [...] down or quit! Ask your doctor or district ranger about ways to quit. [place] with morning sickness Sip small amounts of [...] it easier to eat Bananas Rice Applesauce Elma Try nausea wristbands. These help some women [...] be rapp (more content not included)... Normal [facility] Progress Noteon 07-17-2024 Progress Note Patient doing well, denies OB sx Reviewed TVUS and NOB labs NIPT and Horizon ordered today Continue routine OB care Discussed return precautions Normal [facility] Progress Note ---- Attestation signed by Lynda Neal MD at 07/17/2024 3:29 PM [facility]: This patient was seen in [facility] by the resident. I reviewed and agree with the care provided by the resident during or immediately following the visit including the patient's medical history, the resident's finding in the physical exam, patient's diagnosis and treatment plan. ---- Sumit Johnsontaylor 07/17/2024 18 y.o. 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 Gaspar Attila, DO 07/17/2024, 9:10 AM Normal [facility] Progress Note Vital signs BP 113/73 Weight 117lb Pulse 87 Temp 113/73 Normal [facility] Progress Note Pt had Joselyn drawn from the right arm. Pt tolerated well. Normal [facility] 37on 06-29-2024 37 Medications safe to [...] *Occasional use only Type of Remedy: Hemorrhoids Phenylephrine/blasting gang miner al oil/petrolatum (Preparation H?) Witch sumaya (Tucks? pads or ointment) Type of Remedy: Sleep Diphenhydramine (Unisom SleepGels?, Benadryl) *Please note: No drug can be considered 100% safe to use during . Normal [facility] ABO RH BLOOD TYPEon 06-30-19 ABO GROUPING O Normal [facility] Comment on above: Performed By: #### Augustine [id number], [id number] ####Application Security Specialist: ISABEL YUSUF ([phone])[facility] BLOOD [facility] ([facility])[address] [place] [address] RH TYPE IN BLOOD Positive Normal [facility] Comment on above: Performed By: #### L [id number], [id number] ####Application Security Specialist: ISABEL YUSUF ([phone])[facility] ([facility])[address] [place] [address] ABO and Rh group panel (Bld) on 06-29-2024 ABO group Nom (Bld) O [facility] D Ag Ql (RBC) Positive [facility] Antibody screenon 06-29-2024 Blood group antibody screen GEL Ql Negative [facility] Blood group antibody screen GEL Qlon 06-29-2024 [facility] CBC (HEMOGRAM)on 06-29-2024 Erythrocyte distribution width (RBC) [Ratio] 15.5 % High 11.5-15.0 [facility] Comment on above: Performed By: #### L [id number] ####Application Security Specialist: ISABEL YUSUF ([phone])[facility])[address] [place] [address] Hematocrit (Bld) [Volume fraction] 32.6 % Low 35.0-47.0 [facility] Comment on above: Performed By: #### L [id number] ####Application Security Specialist: ISABEL YUSUF ([phone])[facility])[address] [place] [address] Hemoglobin (Bld) [Mass/Vol] 11.0 g/dL Low 11.7-15.5 [facility] Comment on above: Performed By: #### L [id number] ####Application Security Specialist: ISABEL YUSUF ([phone])[facility])[address] [place] [address] Performed By: #### L [id number] ####[employer] (AMDBEAKER)[address] [place], [place] [facility] MCH (RBC) [Entitic mass] 26.5 pg Normal 26.0-34.0 [facility] Comment on above: Performed By: #### L [id number] ####Application Security Specialist: ISABEL YUSUF ([phone])[facility])[address] [place] [address] MCHC 33.7 % Normal 30.5-36.0 [facility] Comment on above: Performed By: #### L [id number] ####Application Security Specialist: ISABEL YUSUF ([phone])[address] MCV (RBC) [Entitic vol] 78.6 fL Normal 77.0-99.0 [facility] Comment on above: Performed By: #### L [id number] ####Application Security Specialist: ISABEL YUSUF ([phone])[facility])[address] [place] [address] Platelet mean volume (Bld) [Entitic vol] 8.9 fL Low 9.0-12.7 [facility] Comment on above: Performed By: #### L [id number] ####Application Security Specialist: ISABEL YUSUF ([phone])[facility] ([facility])[address] [place] [address] Platelets (Bld) [#/Vol] 280 10*3/uL Normal 140-440 [facility] Comment on above: Performed By: #### L [id number] ####Application Security Specialist: ISABEL YUSUF ([phone])[facility])[address] [place] [address] RBC (Bld) [#/Vol] 4.15 10*6/uL Normal 3.80-5.20 [facility] Comment on above: Performed By: #### L [id number] ####Application Security Specialist: ISABEL YUSUF ([phone])[facility])[address] [place] [address] WBC (Bld) [#/Vol] 7.7 10*3/uL Normal 3.6-10.7 [facility] Comment on above: Performed By: #### L [id number] ####Application Security Specialist: ISABEL YUSUF ([phone])[facility])[address] [place] [address] CBC panel Auto (Bld)on 06-29 Erythrocyte distribution width (RBC) [Ratio] 15.5 % High 11.5 - 15.0 % [facility] Hematocrit (Bld) [Volume fraction] 32.6 % Low 35.0 - 47.0 % [facility] Hemoglobin (Bld) [Mass/Vol] 11 g/dL Low 11.7 - 16.0 g/dL [facility] Interpretation and review of laboratory results Abnormal [facility] MCH (RBC) [Entitic mass] 26.5 pg 26.0 - 34.0 pg [facility] MCHC (RBC) [Mass/Vol] 33.7 % 30.5 - 36.0 % [facility] MCV (RBC) [Entitic vol] 78.6 fL 77.0 - 99.0 fL [facility] Platelet mean volume (Bld) [Entitic vol] 8.9 fL Low 9.0 - 12.7 fL [facility] Platelets (Bld) [#/Vol] 280 10*3/uL 140 - 440 10*3/uL [facility] RBC (Bld) [#/Vol] 4.15 10*6/uL 3.80 - 5.2 0 10*6/uL [facility] WBC (Bld) [#/Vol] 7.7 10*3/uL 3.6 - 10.7 10*3/uL [facility] CHLAMYDIA/GONORRHEAon 2024 CHLAMYDIA/GONORRHEA NEISSERIA GONORRHOEAE DNA PROBE [...] should be collected if clinically indicated. Normal [facility] Comment on above: Performed By: #### L [id number] ####Application Security Specialist: ISABEL YUSUF ([phone])[facility] ([address] HEMOGLOBINOPATHY EVALon Erythrocyte distribution width (RBC) [Ratio] 15.8 % High 11.0-15.0 [facility] Comment on above: Performed By: #### L [id number] ####[facility] (AMDBEAKER)[address] [place] [facility] Hematocrit (Bld) [Volume fraction] 33.7 % Low 35.0-45.0 [facility] Comment on above: Performed By: #### L [id number] ####[facility] (AMDBEAKER)[address] [place] [facility] HEMOGLOBIN A 97.7 % Normal >96.0 [facility] Comment on above: Performed By: #### L [id number] ####[facility] (AMDBEAKER)[id number] [place] [address] [facility] HEMOGLOBIN A2 2.3 % Normal 2.0-3.2 [facility] Comment on above: Performed By: #### L [id number] ####[facility] (AMDBEAKER)[address] [place] [address] [facility] HEMOGLOBIN C NO RESULT Normal [facility] Comment on above: Performed By: #### L [id number] ####[facility] (AMDBEAKER)[id number] [place] [address] [facility] HEMOGLOBIN E NO RESULT Normal [facility] Comment on above: Performed By: #### L [id number] ####[facility] (AMDBEAKER)[address] [place] [address] [facility] HEMOGLOBIN F 0.0 % Normal <2.0 [facility] Comment on above: Performed By: #### L [id number] ####[facility] (AMDBEAKER)[address] [place] [address] [facility] Hemoglobin S Ql (Bld) NO RESULT Normal [facility] Comment on above: Performed By: #### L [id number] ####[facility] (AMDBEAKER)[address] [place] [address] [facility] INTERPRETATION SEE BELOW Normal [facility] Comment on above: Result Comment: NORMAL PATTERN [...] clinically indicated, Thalassemia and Hemoglobinopathy Comprehensive ([place] [address]) should be considered. Test Performed by Christina Sood, [facility], [address] [place] [address] Simone Haywood M.D., Ph.D., Director of Laboratories , CLIA [id number] Performed By: #### L [id number] ####[facility] (AMDBEAKER)[address] [place] [address] [facility] MCH (RBC) [Entitic mass] 26.6 pg Low 27.0-33.0 [facility] Comment on above: Performed By: #### L [id number] ####[facility] ([employer])[address] [place] [address] [facility] MCV (RBC) [Entitic vol] 81.4 fL Normal 80.0-100.0 S [facility] Comment on above: Performed By: #### L [id number] ####[facility] ([employer])[address] [place] [address] [facility] OTHER HEMOGLOBIN 1 NO RESULT Normal [facility] Comment on above: Performed By: #### L [id number] ####[facility] ([employer])[address] [place] [address] [facility] OTHER HEMOGLOBIN 2 NO RESULT Normal [facility] Comment on above: Performed By: #### L [id number] ####[facility] ([employer])[address] [place] [address] [facility] RED BLOOD CELL COUNT - QUEST 4.14 Mill/uL Normal 3.80-5.10 [facility] Comment on above: Performed By: #### L [id number] ####[facility] ([employer])[address] [place] [address] [facility] HEPATITIS B SURFACE ANTIGENo n 06-29-2024 HEPATITIS B VIRUS SURFACE AG Not detected Normal Not Detected [facility] Comment on above: Performed By: #### L [id number], [id number] ####Application Security Specialist: ISABEL YUSUF ([phone])[facility] ([facility])[address] [place] [address] HEPATITIS C ANTIBODYon 06-29 HCV Ab IA Ql Not detected Normal Not Detected [facility] Comment on above: Result Comment: Jina ents with DETECTED Hepatitis C Ab results should have a new specimen submitted for supplemental testing with a Hepatitis C Quantitative RNA assay (viral load), if clinically indicated. Performed By: #### L [id number], [id number] ####Application Security Specialist: ISABEL YUSUF ([phone])[facility] ([facility])[address] [place] [address] HIV-1 and HIV-2 Antigen-Anti body Screenon 06-29-2024 HIV 1+2 Ab+HIV1 p24 Ag IA Ql Non-Reactive Nonreactive [facility] Comment on above: The specimen was non -reactive for HIV-1 and HIV-2 antibodies and p24 antigen using an FDA-cleared 4th generation HIV test. Based on this non-reactive screen result, further reflexive testing was not indicated and was, therefore, not performed. HIV1,2 COMBO ANTIGEN-ANTIBOD Y SCREENon 06-29-2024 HIV 1,2 COMBO ANTIGEN/ANTIBODY Non-Reactive Normal Nonreactive [facility] Comment on above: Result Comment: The specimen was non-reactive for HIV-1 and HIV-2 antibodies and p24 antigen using an FDA-cleared 4th generation HIV test. Based on this non-reactive screen result, further reflexive testing was not indicated and was, therefore, not performed. Performed By: #### L [id number], [id number] ####Application Security Specialist: ISABEL YUSUF ([phone])[facility] [place] [address] Hepatitis B surface antigeno n 06-29-2024 HBV surface Ag IA Ql Not detected Not Detected [facility] Hepatitis C antibodyon 06-29 HCV Ab IA Ql Not detected Not Detected [facility] Comment on above: Patients with DETECT ED Hepatitis C Ab results should have a new specimen submitted for supplemental testing with a Hepatitis C Quantitative RNA assay (viral load), if clinically indicated. N. gonorrhoeae DNA LATRICE+probe Ql (Cervical mucus)on 06-29-2024 C. trachomatis DNA LATRICE+probe Ql (Unsp spec) Not detected Not Detected [facility] Interpretation and review of laboratory results Normal [facility] N gonorrhoeae, DNA Probe Not detected Not Detec génesis [facility] Methodology: real-time PCR This test is intended [...] specimen should be collected if clinically indicated. [facility] No Panel Informationon 06-29 Interpretation and review of laboratory results Normal [facility] Office Visiton 06-29-2024 Follow-up visit [id number] AngjaymetaylorReganSumit 2005 F Date Provider Department Center 06/29/2024 [id number] OHARA [facility] WOM None Chart Close Cosign Required by: Ryan Ferrara MD[NATHAN] No family history on file Level of Service:67067 [place] OFFICE/OUTPATIENT NEW LOW MDM 30 MINUTES Reason for Visit and Comments: Follow-up [993558] - U/S follow up Normal [facility] Progress Noteon 06-29-2024 Progress Note VITALS- BP-100/68 HR-76 TEMP-98.2 F WEIGHT-105 LBS A smoking pipe coater was offered to be present during her exam. The patient: DECLINED Normal [facility] Progress Note ---- Attestation signed by Ryan Ferrara MD at 06/29/2024 2:14 PM [facility]: This patient was seen in the [facility] by the resident. I reviewed [...] She was recently seen on 06/25 in [facility] and endorses continued dysuria with a Ucx positive for 50-94854 CFU of E coli and per patient [...] daily, trying to cut back. Works in [employer] and has been given appropriate accomodation for lifiting OB History Para Term AB Living 1 SAB IAB Ectopic Multiple Live Births # Outcome Date GA Lbr Morales/2nd Weight Sex Type Anes PTL Lv 1 Current No past medical history on file. [employer] REP is required. Please contact your construction administrator to configure this SmartLink. No family [...] taken for (more content not included)... Normal [facility] RPROrdered By: Mian jacobs on 06-29-2024 Reagin Ab RPR Ql (S) Non-Reactive Nonreactive S [facility] RPR WITH REFLEX QUANTon RPR Non-Reactive Normal Nonreactive [facility] Comment on above: Performed By: #### L [id number], [id number] ####Application Security Specialist: ISABEL YUSUF ([phone])[facility])[address] [place] [address] [place] RUBELLA ANTIBODY, IGGon RUBELLA IMMUNE STATUS (LIAISON XL) 2.190 Normal >=0.900 [facility] Comment on above: Result Comment: IRENA Chairez COMMENTS: Interpretation Table: <0.900 Antibody NOT Detected >=0.900 AND <1.000 Antibody Equivocal >=1.000 Antibody Detected Performed By: #### L [id number] ####Application Security Specialist: ISABEL YUSUF ([phone])[facility] ([facility])[address] [place] [address] Reagin Ab RPR Ql (S)Ordered By: Mian Marks on 06-29-2024 Interpretation and review of laboratory results Normal [facility] Rubella antibody, IgGon Interpretation and review of laboratory results Normal [facility] Rubella IgG 2.19 0.900 - PINF [facility] Interpretation Table: <0.900 Antibody NOT Detected >=0.900 AND <1.000 Antibody Equivocal >=1.000 Antibody Detected [facility] T. vaginalis DNA LATRICE+probe Q l (Genital specimen)on 06-29-2024 Interpretation and review of laboratory results Normal [facility] Trichomonas vaginalis Not detected Not Detected [facility] Methodology: real-time PCR A negative result does [...] sexual abuse or for other forensic purposes. [facility] TRICHOMONAS VAGINALIS PCRon 06-29-2024 TRICHOMONAS VAGINALIS PCR [...] abuse or for other forensic purposes. Normal [facility] Comment on above: Performed By: #### L [id number] #### Application Security Specialist: ISABEL YUSUF ([phone]) [facility] ([facility]) [address] [place] [address] URINE CULTUREon 06-29-2024 Bacteria identified Cx Nom (U) URINE CULTURE Reference Insignificant growth based on current clinical guidelines [ S = SUSCEPTIBLE R = RESISTANT I = INTERMEDIATE S-DD = Susceptible-dose dependent NS = Non-susceptible NO = No Interpretation ] Normal [facility] Comment on above: Performed By: #### L [id number] ####Application Security Specialist: ISABEL YUSUF ([phone])[facility] ([facility] [place] [address] US OB TRANSVAGINALon 025 US OB TRANSVAGINAL OBSTETRICS REPORT (Signed Final 06/29/2024 01:09 pm) PATIENT INFO: ID #: [id number] : [birth year] (18 yrs)(F) Name: SUMIT GREEN Visit Date: 06/29/2024 12:30 pm PERFORMED BY: Attending: Tegan Bautista MD, KEVIN, FACOG Performed By: Aurelia Morales RDMS Referred By: KARRIE VELÁSQUEZ Location: [facility] Visit Type: Outpatient SERVICE(S) PROVIDED: US < 14 weeks 75071 US Transvaginal 09418 INDICATIONS: Dating/ Viability Z34.91 VITAL SIGNS: Weight [...] findings do not guarantee normal outcomes. Normal [facility] US Pelvis transvaginalon 1. Garcia live [...] ultrasound findings do not guarantee normal outcomes. [facility] OBSTETRICS REPORT (Signed Final 06/29/2024 01:09 pm) PATIENT INFO: ID #: [id number] : [birth year] (18 yrs)(F) Name: SUMIT GREEN Visit Date: 06/29/2024 12:30 pm PERFORMED BY: Attending: Tegan Bautista MD, MBA, FACOG Performed By: Aurelia Morales RDMS Referred By: KARRIE VELÁSQUEZ Location: [facility] Visit Type: Outpatient SERVICE(S) PROVIDED: US < 14 weeks 11478 US Transvaginal 85374 INDICATIONS: Dating/ Viability Z34.91 VITAL SIGNS: Weight [...] in size and appearance Tegan Bautista MD, MBA, [facility] Electron[facility] Signed Final Report 06/29/2024 01:09 pm [facility] Mikal Bautista MD - 06/29/2024 OBSTETRICS REPORT (Signed Final 06/29/2024 01:09 pm) PATIENT INFO: ID #: [id number] : [birth year] (18 yrs)(F) Name: SUMIT GREEN Visit Date: 06/29/2024 12:30 pm PERFORMED BY: Attending: Tegan Bautista MD, KEVIN, FACOG Performed By: Aurelia Morales RDMS Referred By: KARRIE VELÁSQUEZ Location: [facility] Visit Type: Outpatient SERVICE(S) PROVIDED: US < 14 weeks 72937 US Transvaginal 24324 INDICATIONS: Dating/ Viability Z34.91 VITAL SIGNS: Weight [...] ultrasound findings do not guarantee normal outcomes. [facility] Study observation (narrative) Betty Egan alth US Pelvis transvaginalOrdere d By: Mikal Bautista on 06-29-2024 [facility] Work Phone: Bacteria identified Cx Nom ( U)Ordered By: Meghana Singh on 06-27-2024 Interpretation and review of laboratory results Abnormal [facility] Urine culture (clean catch)O rdered By: Meghana Singh on 06-27-2024 Bacteria identified Cx Nom (U) Normal urogenital maira present [facility] Bacteria identified Cx Nom (U) 50,000-90,000 CFU/mL Escherichia coli Abnormal [facility] Progress Noteon 06-26-2024 Progress Note Based on Urine Culture Results showing growth of 50-90K E. Coli, will send in prescription for PO Macrobid 100 mg BID as this is the most safe in related UTI's. Normal [facility] Progress Note - Patient is starting [...] will decide on best treatment course Normal [facility] COMPLETE URINALYSISon 2024 BACTERIA (#/HPF) IN URINE Negative Normal Negative [facility] Comment on above: Performed By: #### L [id number] ####Application Security Specialist: ISABEL YUSUF ([phone])[facility] ([facility])[address] [place] [address] BILIRUBIN, TOTAL PRESENCE IN URINE Negative Normal Negative [facility] Comment on above: Performed By: #### L [id number] ####Application Security Specialist: ISABEL YUSUF ([phone])[facility] ([facility])[address] [place] [address] Clarity (U) Clear Normal Clear [facility] Comment on above: Performed By: #### L [id number] ####Application Security Specialist: ISABEL YUSUF ([phone])[facility] ([facility])[address] [place] [address] Color (U) Light Yellow Normal Lt. Yellow [facility] Comment on above: Performed By: #### L [id number] ####Application Security Specialist: ISABEL YUSUF ([phone])[facility] ([facility])[address] [place] [address] [place] GLUCOSE (MG/DL) IN URINE Normal Normal Normal (<70 ) [facility] Comment on above: Performed By: #### L [id number] ####Application Security Specialist: ISABEL YUSUF ([phone])[facility] ([facility])[address] [place] [address] HEMOGLOBIN PRESENCE IN URINE Negative Normal Negative [facility] Comment on above: Performed By: #### L [id number] ####Application Security Specialist: ISABEL YUSUF ([phone])[facility] ([facility])[address] [place] [address] [place] HYALINE CASTS (#/LPF) IN URINE SEDIMENT BY MICROSCOPY Negative Normal Negative [facility] Comment on above: Performed By: #### L [id number] ####Application Security Specialist: ISABEL YUSUF ([phone])[facility] ([facility])[address] [place] [address] Ketones Ql (U) Negative Normal Negative [facility] Comment on above: Performed By: #### L [id number] ####Application Security Specialist: ISABEL YUSUF ([phone])[facility] ([facility])[address] [place] [address] LEUKOCYTE ESTERASE PRESENCE IN URINE BY TEST STRIP 75 Herrera/uL Abnormal Negative [facility] Comment on above: Performed By: #### L [id number] ####Application Security Specialist: ISABEL YUSUF ([phone])[facility] ([facility])[address] [place] [address] [place] MUCUS (#/LPF) IN URINE SEDIMENT Few Normal Negative [facility] Comment on above: Performed By: #### L [id number] ####Application Security Specialist: ISABEL YUSUF ([phone])[facility] ([facility])[address] [place] [address] NITRITE PRESENCE IN URINE Negative Normal Negative [facility] Comment on above: Performed By: #### L [id number] ####Application Security Specialist: ISABEL YUSUF ([phone])[facility] ([facility])[address] [place] [address] pH (U) 6.5 [pH] Normal 5.0-8.0 [facility] Comment on above: Performed By: #### L [id number] ####Application Security Specialist: ISABEL YUSUF ([phone])[facility] ([facility])[address] [place] [address] Protein (U) [Mass/Vol] Negative Normal Negative [facility] Comment on above: Performed By: #### L [id number] ####Application Security Specialist: ISABEL YUSUF ([phone])[facility] ([facility])[address] [place] [address] [place] RBC (#/HPF) IN URINE SEDIMENT 0-2 Normal 0-2 [facility] Comment on above: Performed By: #### L [id number] ####Application Security Specialist: ISABEL YUSUF ([phone])[facility])[address] [place] [address] Specific gravity (U) [Rel density] 1.016 Normal 1.005-1.030 [facility] Comment on above: Performed By: #### L [id number] ####Application Security Specialist: ISABEL YUSUF ([phone])[facility])[address] [place] [address] SQUAMOUS EPITHELIAL CELLS (#/HPF) IN URINE SEDIMENT 6-10 Abnormal 3-5 [facility] Comment on above: Performed By: #### L [id number] ####Application Security Specialist: ISABEL YUSUF ([phone])[facility])[address] [place] [address] UROBILINOGEN (MG/DL) IN URINE Normal Normal Normal (0-1) [facility] Comment on above: Performed By: #### L [id number] ####Application Security Specialist: ISABEL YUSUF ([phone])[facility])[address] [place] [address] WBC (LEUKOCYTE) (#/HPF) IN URINE SEDIMENT 0-2 Normal 0-5 [facility] Comment on above: Performed By: #### L [id number] ####Application Security Specialist: ISABEL YUSUF ([phone])[facility])[address] [place] [address] Office Visiton 03-03-2025 Follow-up visit [id number] Sumit Green 2005 F Date Provider Department Center 06/25/2024 8557-VICK CORTEZ [facility] Chart Close Cosign Accepted by: LIZA WHITMAN[[id number]] Chart Close Cosign Accepted on: TueJun 27, 2024 8:07 AM No family history on file Level of Service:10752 [place] TRANSJ CARE MGMT MOD MDM F2F 14 JALEESA D DISCHARGE Reason for Visit and Comments: Hospital Follow-up [832] - Uti, yeast infection, Normal [facility] Progress Noteon 06-25-2024 Progress Note Patient refuses flu vaccine due [...] MA time with patient 5 minutes TH Normal [facility] Progress Note [facility] - [address] [address] Dept: [phone] Dept Loc: [phone] 06/25/2024 Visit type: inpatient follow up Reason [...] significant past medical history that presented to [facility] ED on 06/14/2024 with lightheadedness and nausea/vomiting [...] stable condition. Patient comes in to the [facility] today for regularly scheduled hospital follow up. [...] and atraumatic. Cardiovascular (more content not included)... [facility] Progress Note Teaching Physician Note Direct Supervision - Modifier EUGENIO I performed a history & physical examination [...] under the direction of a teaching physician (GC Modifier). Additional comments: Overall feels improved. She has noticed mild burning with urination mainly in evening for last few days so urine will be rechecked. Liza Whitman MD [facility] URINE CULTUREon 03-03-2025 Bacteria identified Cx Nom (U) URINE CULTURE Reference Normal urogenital maira present ESCHERICHIA COLI 50,000-90,000 CFU/mL Escherichia coli [...] Non-susceptible NO = No Interpretation ] Normal [facility] Comment on above: Performed By: #### L [id number] #### Application Security Specialist: ISABEL YUSUF ([phone]) [address] Urinalysis complete panel (U )Ordered By: Starr Simmons on 06-25-2024 Bacteria LM.HPF (Urine sed) [#/Area] Negative Negative /HPF [facility] Bilirubin Ql (U) Negative Negative mg/dL [facility] Clarity (U) Clear Clear [facility] Color (U) Light Yellow Lt. Yellow [facility] Epithelial cells.squamous LM.HPF (Urine sed) [#/Area] 6-10 Abnormal [facility] Glucose Ql (U) Normal Normal (<70) mg/dL [facility] Hemoglobin Ql (U) Negative Negative mg/dL [facility] Hyaline casts Auto (Urine sed) [#/Area] Negative Negative /LPF [facility] Interpretation and review of laboratory results Abnormal [facility] Ketones (U) [Mass/Vol] Negative Negative mg/d L [facility] Leukocyte esterase Test strip Ql (U) 75 Abnormal Negative Herrera/uL [facility] Mucus LM.HPF (Urine sed) [#/Area] Few Negative /LPF [facility] Nitrite Ql (U) Negative Negative [facility] th pH (U) 6.5 [pH] 5.0 - 8.0 pH [facility] Protein (U) [Mass/Vol] Negative Negative mg/d L [facility] RBC LM.HPF (Urine sed) [#/Area] 0-2 [facility] Specific gravity (U) [Rel density] 1.016 1.005 - 1.030 [facility] Urobilinogen (U) [Mass/Vol] Normal Normal (0-1) mg/dL [facility] WBC LM.HPF (Urine sed) [#/Area] 0-2 [facility] Progress Noteon 06-18-2024 Progress Note Initial Post-Hospital Follow Up Call Call within 2 business days of discharge: yes Patient: Sumit Green Patient : 2005 Spoke with: n/a Discharge department/facility : [facility] Wld-idtt-ne-face services provided: Assessment and support for treatment [...] MFM 06/29/2024 1:30 PM Gloria Ohara MD [facility] None Yovani Chandra RN [facility] Progress Note Attempted to contact patient via telephone to discuss transition of care from recent hospitalization. Sumit Green did not answer, unable to leave voicemail. Message sent to patient via [employer]. Plan: Attempt to call patient at a later time. If patient were to call back, please transfer call to [place] (Ext. *[phone]), thank you. [facility] 36on 06-16-2024 36 Notification of Hospital Discharge Sumit Green was discharged from [facility] to home on 06/16/2024. Sumit Green plans to follow up outpatient with the [facility]. Will route this note to Humberto Chandra (Nate) to initiate Transitional Care Management Process. Prior to patient's discharge, the patient was scheduled an [facility] follow up appointment within 14 days of hospital discharge. Future Appointments Date Time Provider Department Center 06/25/2024 2:50 PM Vick Cortez MD [facility] 06/29/2024 12:30 PM A[facility] MFM RM 2 [facility] 75 ARCH MFM 06/29/2024 1:30 PM Gloria Ohara MD [facility] W[facility] None Normal [facility] Bacteria identified Cx Nom ( U)Ordered By: Ekaterina Ann on 06-16-2024 Interpretation and review of laboratory results Normal [facility] CBC W Auto Differential pane l (Bld)on 06-16-2024 Basophils (Bld) [#/Vol] 0.1 10*3/uL 0.0 - 0.2 10*3/uL [facility] Basophils/100 WBC (Bld) 1 % 0.0 - 2.0 % [facility] Eosinophils (Bld) [#/Vol] 0.3 10*3/uL 0.0 - 0.5 10*3/uL [facility] Eosinophils/100 WBC (Bld) 4.8 % 0.0 - 6.0 % [facility] Erythrocyte distribution width (RBC) [Ratio] 14.4 % 11.5 - 15.0 % [facility] Hematocrit (Bld) [Volume fraction] 31.9 % Low 35.0 - 47.0 % [facility] Hemoglobin (Bld) [Mass/Vol] 11 g/dL Low 11.7 - 16.0 g/dL [facility] Immature granulocytes (Bld) [#/Vol] 0 10*3/uL NINF - 0.1 10*3/uL [facility] Immature granulocytes/100 WBC (Bld) 0.7 % 0.0 - 2.0 % [facility] Interpretation and review of laboratory results Abnormal [facility] Lymphocytes (Bld) [#/Vol] 1.7 10*3/uL 1.0 - 4.3 10*3/uL [facility] Lymphocytes/100 WBC (Bld) 28.4 % 15.0 - 45.0 % [facility] MCH (RBC) [Entitic mass] 26.2 pg 26.0 - 34.0 pg [facility] MCHC (RBC) [Mass/Vol] 34.5 % 30.5 - 36.0 % [facility] MCV (RBC) [Entitic vol] 76 fL Low 77.0 - 99.0 fL [facility] Monocytes (Bld) [#/Vol] 0.7 10*3/uL 0.0 - 0.9 10*3/uL [facility] Monocytes/100 WBC (Bld) 11.5 % 5.0 - 13.0 % [facility] Neutrophils (Bld) [#/Vol] 3.2 10*3/uL 1.8 - 7.5 10*3/uL [facility] Neutrophils/100 WBC (Bld) 53.6 % 38.0 - 82.0 % [facility] Nucleated RBC/100 WBC (Bld) [Ratio] 0 % [facility] Platelet mean volume (Bld) [Entitic vol] 8.7 fL Low 9.0 - 12.7 fL [facility] Platelets (Bld) [#/Vol] 299 10*3/uL 140 - 440 10*3/uL [facility] RBC (Bld) [#/Vol] 4.2 10*6/uL 3.80 - 5.2 0 10*6/uL [facility] WBC (Bld) [#/Vol] 5.9 10*3/uL 3.6 - 10.7 10*3/uL [facility] CBC WITH AUTO DIFFERENTIALon 06-16-2024 Basophils (Bld) [#/Vol] 0.1 10*3/uL Normal 0.0-0.2 [facility] Comment on above: Performed By: #### L [id number] ####Application Security Specialist: ISABEL YUSUF ([phone])[facility] ([address] Basophils/100 WBC (Bld) 1.0 % Normal 0.0-2.0 [facility] Comment on above: Performed By: #### L [id number] ####Application Security Specialist: ISABEL YUSUF ([phone])[facility])[address] [place] [address] Eosinophils (Bld) [#/Vol] 0.3 10*3/uL Normal 0.0-0.5 [facility] Comment on above: Performed By: #### L [id number] ####Application Security Specialist: ISABEL YUSUF ([phone])[facility] ([facility])[address] [place] [address] Eosinophils/100 WBC (Bld) 4.8 % Normal 0.0-6.0 [facility] Comment on above: Performed By: #### L [id number] ####Application Security Specialist: ISABEL YUSUF ([phone])[facility])[address] [place] [address] Erythrocyte distribution width (RBC) [Ratio] 14.4 % Normal 11.5-15.0 [facility] Comment on above: Performed By: #### L [id number] ####Application Security Specialist: ISABEL YUSUF ([phone])[facility])[address] [place] [address] Hematocrit (Bld) [Volume fraction] 31.9 % Low 35.0-47.0 [facility] Comment on above: Performed By: #### L [id number] ####Application Security Specialist: ISABEL YUSUF ([phone])[facility])[address] [place] [address] Hemoglobin (Bld) [Mass/Vol] 11.0 g/dL Low 11.7-16.0 [facility] Comment on above: Performed By: #### L [id number] ####Application Security Specialist: ISABEL YUSUF ([phone])[facility])[address] [place] [address] IMMATURE GRANS % 0.7 % Normal 0.0-2.0 [facility] Comment on above: Performed By: #### L [id number] ####Application Security Specialist: ISABEL YUSUF ([phone])[facility])[address] [place] [address] IMMATURE GRANS ABSOLUTE 0.0 10*3/uL Normal <0.1 [facility] Comment on above: Performed By: #### L [id number] ####Application Security Specialist: ISABEL YUSUF ([phone])[facility])[address] [place] [address] Lymphocytes (Bld) [#/Vol] 1.7 10*3/uL Normal 1.0-4.3 [facility] Comment on above: Performed By: #### L [id number] ####Application Security Specialist: ISABEL YUSUF ([phone])[facility])[address] [place] [address] Lymphocytes/100 WBC (Bld) 28.4 % Normal 15.0-45.0 [facility] Comment on above: Performed By: #### L [id number] ####Application Security Specialist: ISABEL YUSUF ([phone])[facility])[address] [place] [address] MCH (RBC) [Entitic mass] 26.2 pg Normal 26.0-34.0 [facility] Comment on above: Performed By: #### L [id number] ####Application Security Specialist: ISABEL YUSUF ([phone])[facility])[address] [place] [address] MCHC 34.5 % Normal 30.5-36.0 [facility] Comment on above: Performed By: #### L [id number] ####Application Security Specialist: ISABEL YUSUF ([phone])[facility])[address] [place] [address] MCV (RBC) [Entitic vol] 76.0 fL Low 77.0-99.0 [facility] Comment on above: Performed By: #### L [id number] ####Application Security Specialist: ISABEL YUSUF ([phone])[facility])[address] [place] [address] Monocytes (Bld) [#/Vol] 0.7 10*3/uL Normal 0.0-0.9 [facility] Comment on above: Performed By: #### L [id number] ####Application Security Specialist: ISABEL YUSUF ([phone])[facility] [place] [address] Monocytes/100 WBC (Bld) 11.5 % Normal 5.0-13.0 [facility] Comment on above: Performed By: #### L [id number] ####Application Security Specialist: ISABEL YUSUF ([phone])[facility] ([facility])[address] [place] [address] NEUTROPHILS ABSOLUTE 3.2 10*3/uL Normal 1.8-7.5 [facility] Comment on above: Performed By: #### L [id number] ####Application Security Specialist: ISABEL YUSUF ([phone])[facility] ([facility])[address] [place] [address] Neutrophils/100 WBC (Bld) 53.6 % Normal 38.0-82.0 [facility] Comment on above: Performed By: #### L [id number] ####Application Security Specialist: ISABEL YUSUF ([phone])[facility] ([facility])[address] [place] [address] NRBC 0.0 /100 WBCs Normal 0.0-2.[address] [facility] Comment on above: Performed By: #### L [id number] ####Application Security Specialist: ISABEL YUSUF ([phone])[facility] ([facility])[address] [place] [address] Platelet mean volume (Bld) [Entitic vol] 8.7 fL Low 9.0-12.7 [facility] Comment on above: Performed By: #### L [id number] ####Application Security Specialist: ISABEL YUSUF ([phone])[facility] ([facility])[address] [place] [address] [place] Platelets (Bld) [#/Vol] 299 10*3/uL Normal 140-440 [facility] Comment on above: Performed By: #### L [id number] ####Application Security Specialist: ISABEL YUSUF ([phone])[facility])[address] [place] [address] RBC (Bld) [#/Vol] 4.20 10*6/uL Normal 3.80-5.20 [facility] Comment on above: Performed By: #### L [id number] ####Application Security Specialist: ISABEL YUSUF ([phone])[facility])[address] [place] [address] WBC (Bld) [#/Vol] 5.9 10*3/uL Normal 3.6-10.7 [facility] Comment on above: Performed By: #### L [id number] ####Application Security Specialist: ISABEL YUSUF ([phone])[facility])[address] [place] [address] COMPREHENSIVE METABOLIC PANE Jose Angel 06-16-2024 Albumin [Mass/Vol] 3.8 g/dL Normal 3.5-5.0 [facility] Comment on above: Performed By: #### L [id number] ####Application Security Specialist: ISABEL YUSUF ([phone])[facility])[address] [place] [address] ALP [Catalytic activity/Vol] 53 U/L Normal 40-150 [facility] Comment on above: Performed By: #### L [id number] ####Application Security Specialist: ISABEL YUSUF ([phone])[facility])[address] [place] [address] ALT [Catalytic activity/Vol] 25 U/L Normal <30 [facility] Comment on above: Performed By: #### L [id number] ####Application Security Specialist: ISABEL YUSUF ([phone])[facility])[address] [place] [address] Anion gap [Moles/Vol] 7 mmol/L Normal 3-13 [facility] Comment on above: Performed By: #### L [id number] ####Application Security Specialist: ISABEL YUSUF ([phone])[facility] [place] [address] [place] AST [Catalytic activity/Vol] 17 U/L Normal <34 [facility] Comment on above: Performed By: #### L [id number] ####Application Security Specialist: ISABEL YUSUF ([phone])[facility] [place] [address] [place] Bilirubin [Mass/Vol] 0.4 mg/dL Normal <1.2 [facility] Comment on above: Performed By: #### L [id number] ####Application Security Specialist: ISABEL YUSUF ([phone])[facility] ([facility])[address] [place] [address] Calcium [Mass/Vol] 8.8 mg/dL Normal 8.4-10.2 [facility] Comment on above: Performed By: #### L [id number] ####Application Security Specialist: ISABEL YUSUF ([phone])[facility] [place] [address] Chloride [Moles/Vol] 110 mmol/L High 98-107 [facility] Comment on above: Performed By: #### L [id number] ####Application Security Specialist: ISABEL YUSUF ([phone])[facility] ([facility])[address] [place] [address] CO2 [Moles/Vol] 18 mmol/L Low 22-29 [facility] Comment on above: Performed By: #### L [id number] ####Application Security Specialist: ISABEL YUSUF ([phone])[facility] ([facility])[address] [place] [address] [place] Creatinine [Mass/Vol] 0.63 mg/dL Normal 0.57-1.11 [facility] Comment on above: Performed By: #### L [id number] ####Application Security Specialist: ISABEL YUSUF ([phone])[facility] ([facility])[address] [place] [address] [place] GLOMERULAR FILTRATION RATE ML/MIN/1.73 SQ M.PREDICTED >90.0 Normal >60.0 [facility] Comment on above: Result Comment: Calc ulation based on the Chronic Kidney Disease Epidemiology Collaboration (CKD-EPI) equation refit without adjustment for race Performed By: #### L [id number] ####Application Security Specialist: ISABEL YUSUF ([phone])[facility] ([facility])[address] [place] [address] Glucose [Mass/Vol] 86 mg/dL Normal 74-100 [facility] Comment on above: Performed By: #### L [id number] ####Application Security Specialist: ISABEL YUSUF ([phone])[facility])[address] [place] [address] Potassium [Moles/Vol] 4.0 mmol/L Normal 3.5-5.1 [facility] Comment on above: Result Comment: [facility] potassium values may be up to 0.5 mmol/L lower than serum values. Performed By: #### L [id number] ####Application Security Specialist: ISABEL YUSUF ([phone])[facility] ([facility])[address] [place] [address] Protein [Mass/Vol] 6.5 g/dL Normal 6.4-8.3 [facility] Comment on above: Performed By: #### L [id number] ####Application Security Specialist: ISABEL YUSUF ([phone])[facility])[address] [place] [address] Sodium [Moles/Vol] 135 mmol/L Low 136-145 [facility] Comment on above: Performed By: #### L [id number] ####Application Security Specialist: ISABEL YUSUF ([phone])[facility])[address] [place] [address] [place] Urea nitrogen [Mass/Vol] 10 mg/dL Normal 8-21 [facility] Comment on above: Performed By: #### L [id number] ####Application Security Specialist: ISABEL YUSUF ([phone])[facility])[address] [place] [address] Comprehensive metabolic 1998 panelon 06-16-2024 Albumin [Mass/Vol] 3.8 g/dL 3.5 - 5.0 g/dL [facility] ALP [Catalytic activity/Vol] 53 U/L 40 - 150 U/L [facility] ALT [Catalytic activity/Vol] 25 U/L NINF - 30 U/L [facility] Anion gap [Moles/Vol] 7 mmol/L 3 - 13 mmol/L [facility] AST [Catalytic activity/Vol] 17 U/L NINF - 34 U/L [facility] Bilirubin [Mass/Vol] 0.4 mg/dL NINF - 1.2 mg/dL [facility] Calcium [Mass/Vol] 8.8 mg/dL 8.4 - 10. 2 mg/dL [facility] Chloride [Moles/Vol] 110 mmol/L High 98 - 107 mmol/L [facility] CO2 [Moles/Vol] 18 mmol/L Low 22 - 29 mmol/L [facility] Creatinine [Mass/Vol] 0.63 mg/dL 0.57 - 1.11 mg/dL [facility] GFR/1.73 sq M.predicted (S/P/Bld) [Vol rate/Area] - PINF [facility] Comment on above: Calculation based on the Chronic Kidney Disease Epidemiology Collaboration (CKD-EPI) equation refit without adjustment for race Glucose [Mass/Vol] 86 mg/dL 74 - 100 mg/dL [facility] Interpretation and review of laboratory results Abnormal [facility] Potassium [Moles/Vol] 4 mmol/L 3.5 - 5.1 mmol/L [facility] Comment on above: Plasma potassium jared ues may be up to 0.5 mmol/L lower than serum values. Protein [Mass/Vol] 6.5 g/dL 6.4 - 8.3 g/dL [facility] Sodium [Moles/Vol] 135 mmol/L Low 136 - 145 mmol/L [facility] Urea nitrogen [Mass/Vol] 10 mg/dL 8 - 21 mg/d L [facility] - Microbiology an d Antimicrobial susceptibilityOrdered By: Ekaterina Ann on 06-16-2024 Bacteria identified Cx Nom (U) No growth (<1,000 CFU/mL) [facility] Nursing Noteon 06-16-2024 Nursing Note Patients IV removed. This RN asked patient if another IV could be replaced. Patient refused. All risks dicussed with patient. Normal [facility] Progress Noteon 06-16-2024 Progress Note Nutrition rescreen completed. Patient referred to the Dietitian. BMI 17.64. Normal [facility] 30on 06-15-2024 30 Problem: Pain - [...] and maintained or improved Outcome: Progressing Normal [facility] CBC W Auto Differential pane l (Bld)on 06-15-2024 Basophils (Bld) [#/Vol] 0 10*3/uL 0.0 - 0.2 10*3/uL [facility] Basophils/100 WBC (Bld) 0.8 % 0.0 - 2.0 % [facility] Eosinophils (Bld) [#/Vol] 0.2 10*3/uL 0.0 - 0.5 10*3/uL [facility] Eosinophils/100 WBC (Bld) 3.7 % 0.0 - 6.0 % [facility] Erythrocyte distribution width (RBC) [Ratio] 14 % 11.5 - 15.0 % [facility] Hematocrit (Bld) [Volume fraction] 32.2 % Low 35.0 - 47.0 % [facility] Hemoglobin (Bld) [Mass/Vol] 10.6 g/dL Low 11.7 - 16.0 g/dL [facility] Immature granulocytes (Bld) [#/Vol] 0 10*3/uL NINF - 0.1 10*3/uL [facility] Immature granulocytes/100 WBC (Bld) 0.8 % 0.0 - 2.0 % [facility] Interpretation and review of laboratory results Abnormal [facility] Lymphocytes (Bld) [#/Vol] 1.2 10*3/uL 1.0 - 4.3 10*3/uL [facility] Lymphocytes/100 WBC (Bld) 22.6 % 15.0 - 45.0 % [facility] MCH (RBC) [Entitic mass] 25.7 pg Low 26.0 - 34.0 pg [facility] MCHC (RBC) [Mass/Vol] 32.9 % 30.5 - 36.0 % [facility] MCV (RBC) [Entitic vol] 78 fL 77.0 - 99.0 fL [facility] Monocytes (Bld) [#/Vol] 0.6 10*3/uL 0.0 - 0.9 10*3/uL [facility] Monocytes/100 WBC (Bld) 11.6 % 5.0 - 13.0 % [facility] Neutrophils (Bld) [#/Vol] 3.1 10*3/uL 1.8 - 7.5 10*3/uL [facility] Neutrophils/100 WBC (Bld) 60.5 % 38.0 - 82.0 % [facility] Nucleated RBC/100 WBC (Bld) [Ratio] 0 % [facility] Platelet mean volume (Bld) [Entitic vol] 8.7 fL Low 9.0 - 12.7 fL [facility] Platelets (Bld) [#/Vol] 295 10*3/uL 140 - 440 10*3/uL [facility] RBC (Bld) [#/Vol] 4.13 10*6/uL 3.80 - 5.2 0 10*6/uL [facility] WBC (Bld) [#/Vol] 5.1 10*3/uL 3.6 - 10.7 10*3/uL [facility] CBC WITH AUTO DIFFERENTIALon 06-15-2024 Basophils (Bld) [#/Vol] 0.0 10*3/uL Normal 0.0-0.2 [facility] Comment on above: Performed By: #### L [id number] ####Application Security Specialist: ISABEL YUSUF ([phone])[facility] ([facility])[address] [place] [address] Basophils/100 WBC (Bld) 0.8 % Normal 0.0-2.0 [facility] Comment on above: Performed By: #### L [id number] ####Application Security Specialist: ISABEL YUSUF ([phone])[facility] ([facility])[address] [place] [address] Eosinophils (Bld) [#/Vol] 0.2 10*3/uL Normal 0.0-0.5 [facility] Comment on above: Performed By: #### L [id number] ####Application Security Specialist: ISABEL YUSUF ([phone])[facility])[address] [place] [address] Eosinophils/100 WBC (Bld) 3.7 % Normal 0.0-6.0 [facility] Comment on above: Performed By: #### L [id number] ####Application Security Specialist: ISABEL YUSUF ([phone])[facility])[address] [place] [address] Erythrocyte distribution width (RBC) [Ratio] 14.0 % Normal 11.5-15.0 [facility] Comment on above: Performed By: #### L [id number] ####Application Security Specialist: ISABEL YUSUF ([phone])[address] Hematocrit (Bld) [Volume fraction] 32.2 % Low 35.0-47.0 [facility] Comment on above: Performed By: #### L [id number] ####Application Security Specialist: ISABEL YUSUF ([phone])[facility])[address] [place] [address] Hemoglobin (Bld) [Mass/Vol] 10.6 g/dL Low 11.7-16.0 [facility] Comment on above: Performed By: #### L [id number] ####Application Security Specialist: ISABEL YUSUF ([phone])[facility])[address] [place] [address] IMMATURE GRANS % 0.8 % Normal 0.0-2.0 [facility] Comment on above: Performed By: #### L [id number] ####Application Security Specialist: ISABEL YUSUF ([phone])[address] IMMATURE GRANS ABSOLUTE 0.0 10*3/uL Normal <0.1 [facility] Comment on above: Performed By: #### L [id number] ####Application Security Specialist: ISABEL YUSUF ([phone])[facility])[address] [place] [address] Lymphocytes (Bld) [#/Vol] 1.2 10*3/uL Normal 1.0-4.3 [facility] Comment on above: Performed By: #### L [id number] ####Application Security Specialist: ISABEL YUSUF ([phone])[facility])[address] [place] [address] Lymphocytes/100 WBC (Bld) 22.6 % Normal 15.0-45.0 [facility] Comment on above: Performed By: #### L [id number] ####Application Security Specialist: ISABEL YUSUF ([phone])[facility])[address] [place] [address] MCH (RBC) [Entitic mass] 25.7 pg Low 26.0-34.0 [facility] Comment on above: Performed By: #### L [id number] ####Application Security Specialist: ISABEL YUSUF ([phone])[facility])[address] [place] [address] MCHC 32.9 % Normal 30.5-36.0 [facility] Comment on above: Performed By: #### L [id number] ####Application Security Specialist: ISABEL YUSUF ([phone])[facility])[address] [place] [address] MCV (RBC) [Entitic vol] 78.0 fL Normal 77.0-99.0 [facility] Comment on above: Performed By: #### L [id number] ####Application Security Specialist: ISABEL YUSUF ([phone])[facility])[address] [place] [address] Monocytes (Bld) [#/Vol] 0.6 10*3/uL Normal 0.0-0.9 [facility] Comment on above: Performed By: #### L [id number] ####Application Security Specialist: ISABEL YUSUF ([phone])[facility])[address] [place] [address] Monocytes/100 WBC (Bld) 11.6 % Normal 5.0-13.0 [facility] Comment on above: Performed By: #### L [id number] ####Application Security Specialist: ISABEL YUSUF ([phone])[facility] ([facility])[address] [place] [address] NEUTROPHILS ABSOLUTE 3.1 10*3/uL Normal 1.8-7.5 [facility] Comment on above: Performed By: #### L [id number] ####Application Security Specialist: ISABEL YUSUF ([phone])[facility] ([facility])[address] [place] [address] Neutrophils/100 WBC (Bld) 60.5 % Normal 38.0-82.0 [facility] Comment on above: Performed By: #### L [id number] ####Application Security Specialist: ISABEL YUSUF ([phone])[facility] ([facility])[address] [place] [address] NRBC 0.0 /100 WBCs Normal 0.0-2.[address] [facility] Comment on above: Performed By: #### L [id number] ####Application Security Specialist: ISABEL YUSUF ([phone])[facility] ([facility])[address] [place] [address] Platelet mean volume (Bld) [Entitic vol] 8.7 fL Low 9.0-12.7 [facility] Comment on above: Performed By: #### L [id number] ####Application Security Specialist: ISABEL YUSUF ([phone])[facility] ([facility])[address] [place] [address] Platelets (Bld) [#/Vol] 295 10*3/uL Normal 140-440 [facility] Comment on above: Performed By: #### L [id number] ####Application Security Specialist: ISABEL YUSUF ([phone])[facility] ([facility])[address] [place] [address] RBC (Bld) [#/Vol] 4.13 10*6/uL Normal 3.80-5.20 [facility] Comment on above: Performed By: #### L [id number] ####Application Security Specialist: ISABEL YUSUF ([phone])[facility] ([facility])[address] [place] [address] WBC (Bld) [#/Vol] 5.1 10*3/uL Normal 3.6-10.7 [facility] Comment on above: Performed By: #### L [id number] ####Application Security Specialist: ISABEL YUSUF ([phone])[facility] ([facility])[address] [place] [address] COMPREHENSIVE METABOLIC PANE Jose Angel 06-15-2024 Albumin [Mass/Vol] 3.6 g/dL Normal 3.5-5.0 [facility] Comment on above: Performed By: #### L [id number] ####Application Security Specialist: ISABEL YUSUF ([phone])[facility] ([facility])[address] [place] [address] ALP [Catalytic activity/Vol] 51 U/L Normal 40-150 [facility] Comment on above: Performed By: #### L [id number] ####Application Security Specialist: ISABEL YUSUF ([phone])[facility] ([facility])[address] [place] [address] ALT [Catalytic activity/Vol] 25 U/L Normal <30 [facility] Comment on above: Performed By: #### L [id number] ####Application Security Specialist: ISABEL YUSUF ([phone])[facility] ([facility])[address] [place] [address] Anion gap [Moles/Vol] 7 mmol/L Normal 3-13 [facility] Comment on above: Performed By: #### L [id number] ####Application Security Specialist: ISABEL YUSUF ([phone])[facility])[address] [place] [address] AST [Catalytic activity/Vol] 21 U/L Normal <34 [facility] Comment on above: Performed By: #### L [id number] ####Application Security Specialist: ISABEL YUSUF ([phone])[facility])[address] [place] [address] Bilirubin [Mass/Vol] 0.3 mg/dL Normal <1.2 [facility] Comment on above: Performed By: #### L [id number] ####Application Security Specialist: ISABEL YUSUF ([phone])[facility] ([facility])[address] [place] [address] Calcium [Mass/Vol] 8.6 mg/dL Normal 8.4-10.2 [facility] Comment on above: Performed By: #### L [id number] ####Application Security Specialist: ISABEL YUSUF ([phone])[facility] ([facility])[address] [place] [address] Chloride [Moles/Vol] 110 mmol/L High 98-107 [facility] Comment on above: Performed By: #### L [id number] ####Application Security Specialist: ISABEL YUSUF ([phone])[facility] ([facility])[address] [place] [address] CO2 [Moles/Vol] 19 mmol/L Low 22-29 [facility] Comment on above: Performed By: #### L [id number] ####Application Security Specialist: ISABEL YUSUF ([phone])[facility])[address] [place] [address] Creatinine [Mass/Vol] 0.72 mg/dL Normal 0.57-1.11 [facility] Comment on above: Performed By: #### L [id number] ####Application Security Specialist: ISABEL YUSUF ([phone])[facility])[address] [place] [address] GLOMERULAR FILTRATION RATE ML/MIN/1.73 SQ M.PREDICTED >90.0 Normal >60.0 [facility] Comment on above: Result Comment: Calc ulation based on the Chronic Kidney Disease Epidemiology Collaboration (CKD-EPI) equation refit without adjustment for race Performed By: #### L [id number] ####Application Security Specialist: ISABEL YUSUF ([phone])[facility] ([facility])[address] [place] [address] Glucose [Mass/Vol] 130 mg/dL High 74-100 [facility] Comment on above: Performed By: #### L [id number] ####Application Security Specialist: ISABEL YUSUF ([phone])[facility])[address] [place] [address] Potassium [Moles/Vol] 3.7 mmol/L Normal 3.5-5.1 [facility] Comment on above: Result Comment: [facility] potassium values may be up to 0.5 mmol/L lower than serum values. Performed By: #### L [id number] ####Application Security Specialist: ISABEL YUSUF ([phone])[facility] ([facility])[address] [place] [address] Protein [Mass/Vol] 6.4 g/dL Normal 6.4-8.3 [facility] Comment on above: Performed By: #### L [id number] ####Application Security Specialist: ISABEL YUSUF ([phone])[facility])[address] [place] [address] Sodium [Moles/Vol] 136 mmol/L Normal 136-145 [facility] Comment on above: Performed By: #### L [id number] ####Application Security Specialist: ISABEL YUSUF ([phone])[facility])[address] [place] [address] Urea nitrogen [Mass/Vol] 9 mg/dL Normal 8-21 [facility] Comment on above: Performed By: #### L [id number] ####Application Security Specialist: ISABEL YUSUF ([phone])[facility])[address] [place] [address] Comprehensive metabolic 1998 panelon 06-15-2024 Albumin [Mass/Vol] 3.6 g/dL 3.5 - 5.0 g/dL [facility] ALP [Catalytic activity/Vol] 51 U/L 40 - 150 U/L [facility] ALT [Catalytic activity/Vol] 25 U/L NINF - 30 U/L [facility] Anion gap [Moles/Vol] 7 mmol/L 3 - 13 mmol/L [facility] AST [Catalytic activity/Vol] 21 U/L NINF - 34 U/L [facility] Bilirubin [Mass/Vol] 0.3 mg/dL NINF - 1.2 mg/dL [facility] Calcium [Mass/Vol] 8.6 mg/dL 8.4 - 10. 2 mg/dL [facility] Chloride [Moles/Vol] 110 mmol/L High 98 - 107 mmol/L [facility] CO2 [Moles/Vol] 19 mmol/L Low 22 - 29 mmol/L [facility] Creatinine [Mass/Vol] 0.72 mg/dL 0.57 - 1.11 mg/dL [facility] GFR/1.73 sq M.predicted (S/P/Bld) [Vol rate/Area] - PINF [facility] Comment on above: Calculation based on the Chronic Kidney Disease Epidemiology Collaboration (CKD-EPI) equation refit without adjustment for race Glucose [Mass/Vol] 130 mg/dL High 74 - 100 mg/dL [facility] Interpretation and review of laboratory results Abnormal [facility] Potassium [Moles/Vol] 3.7 mmol/L 3.5 - 5.1 mmol/L [facility] Comment on above: Plasma potassium jared ues may be up to 0.5 mmol/L lower than serum values. Protein [Mass/Vol] 6.4 g/dL 6.4 - 8.3 g/dL [facility] Sodium [Moles/Vol] 136 mmol/L 136 - 145 mmol/L [facility] Urea nitrogen [Mass/Vol] 9 mg/dL 8 - 21 mg/d L [facility] No Panel Informationon 06-15 Extra Tube Hold for add-ons. [facility] Comment on above: Auto resulted. [facility] URINE CULTUREon 06-15-2024 Bacteria identified Cx Nom (U) URINE CULTURE Reference No growth (<1,000 CFU/mL) [ S = SUSCEPTIBLE R = RESISTANT I = INTERMEDIATE S-DD = Susceptible-dose dependent NS = Non-susceptible NO = No Interpretation ] Normal [facility] Comment on above: Performed By: #### L [id number] #### Application Security Specialist: ISABEL YUSUF ([phone]) [facility] DIEUDONNE SAMUEL (SWRLAB) [address] [place] [address] 30on 06-14-2024 30 Problem: Pain - Adult [...] and maintained or improved Outcome: Progressing Normal [facility] BASIC METABOLIC PANELon 05-27 Anion gap [Moles/Vol] 7 mmol/L Normal 3-13 [facility] Comment on above: Performed By: #### L AB15, [id number], [id number] ####Application Security Specialist: ISABEL YUSUF ([phone])[facility] CRUZDIEUDONNE RITTMAN (SWRLAB)[address] Calcium [Mass/Vol] 8.8 mg/dL Normal 8.4-10.2 [facility] Comment on above: Performed By: #### L AB15, [id number], [id number] ####Application Security Specialist: ISABEL YUSUF ([phone])[facility] DIEUDONNE RITTMAN (SWRLAB)[address] [place] [address] [place] Chloride [Moles/Vol] 106 mmol/L Normal 98-107 [facility] Comment on above: Performed By: #### L AB15, [id number], [id number] ####Application Security Specialist: ISABEL YUSUF ([phone])[facility] DIEUDONNE RITTMAN (SWRLAB)[address] [place] [address] [place] CO2 [Moles/Vol] 22 mmol/L Normal 22-29 [facility] Comment on above: Performed By: #### L AB15, [id number], [id number] ####Application Security Specialist: ISABEL YUSUF ([phone])[facility]ITALJasmyn CRUZDIEUDONNE RITTMAN (SWRLAB)[address] [place] [address] [place] Creatinine [Mass/Vol] 0.73 mg/dL Normal 0.57-1.11 [facility] Comment on above: Performed By: #### L AB15, [id number], [id number] ####Application Security Specialist: ISABEL YUSUF ([phone])[facility] DIEUDONNE RITTMAN (SWRLAB)[address] GLOMERULAR FILTRATION RATE ML/MIN/1.73 SQ M.PREDICTED >90.0 Normal >60.0 [facility] Comment on above: Result Comment: Calc ulation based on the Chronic Kidney Disease Epidemiology Collaboration (CKD-EPI) equation refit without adjustment for race Performed By: #### Augustine AB15, [id number], [id number] ####Application Security Specialist: ISABEL YUSUF ([phone])[facility]ITAL[facility]asm[facility] BRO RITTMAN (SWRLAB)[address] Glucose [Mass/Vol] 110 mg/dL High 74-100 [facility] Comment on above: Performed By: #### Augustine AB15, [id number], [id number] ####Application Security Specialist: ISABEL YUSUF ([phone])[facility]ITAL[facility] BRO RITTMAN (SWRLAB)[address] [place] [address] Potassium [Moles/Vol] 4.0 mmol/L Normal 3.5-5.1 [facility] Comment on above: Result Comment: [facility] potassium values may be up to 0.5 mmol/L lower than serum values. Performed By: #### Augustine AB15, [id number], [id number] ####Application Security Specialist: ISABEL YUSUF ([phone])[facility]ITAL[facility] BRO RITTMAN (SWRLAB)[address] [place] [address] Sodium [Moles/Vol] 135 mmol/L Low 136-145 [facility] Comment on above: Performed By: #### L AB15, [id number], [id number] ####Application Security Specialist: ISABEL YUSUF ([phone])[facility]ITALJ[facility] BRO RITTMAN (SWRLAB)[address] [place] [address] [place] Urea nitrogen [Mass/Vol] 10 mg/dL Normal 8-21 [facility] Comment on above: Performed By: #### L AB15, [id number], [id number] ####Application Security Specialist: ISABEL YUSUF ([phone])[facility]ITAL[facility] BRO RITTMAN (SWRLAB)[address] Bacterial vaginosis and vagi nitis rRNA panel Probe (Vag fld)on 06-14-2024 Bacterial vaginosis Ql (Vag fld) [Interp] Not detected Not Detected [facility] C. glabrata DNA LATRICE+probe Ql (Vag fld) Not detected Not Detected [facility] Nicki sp DNA LATRICE+probe Ql (Vag fld) Detected Abnormal Not Detected [facility] Interpretation and review of laboratory results Abnormal [facility] T. vaginalis DNA LATRICE+probe Ql (Vag fld) Not detected Not Detected [facility] Methodology: real-time PCR A negative result does [...] sexual abuse or for other forensic purposes. [facility] Basic metabolic 1998 panelon 06-14-2024 Anion gap [Moles/Vol] 7 mmol/L 3 - 13 mmol/L [facility] Calcium [Mass/Vol] 8.8 mg/dL 8.4 - 10. 2 mg/dL [facility] Chloride [Moles/Vol] 106 mmol/L 98 - 107 mmol/L [facility] CO2 [Moles/Vol] 22 mmol/L 22 - 29 mmol/L [facility] Creatinine [Mass/Vol] 0.73 mg/dL 0.57 - 1.11 mg/dL [facility] GFR/1.73 sq M.predicted (S/P/Bld) [Vol rate/Area] - PINF [facility] Comment on above: Calculation based on the Chronic Kidney Disease Epidemiology Collaboration (CKD-EPI) equation refit without adjustment for race Glucose [Mass/Vol] 110 mg/dL High 74 - 100 mg/dL [facility] Interpretation and review of laboratory results Abnormal [facility] Potassium [Moles/Vol] 4 mmol/L 3.5 - 5.1 mmol/L [facility] Comment on above: Plasma potassium jared ues may be up to 0.5 mmol/L lower than serum values. Sodium [Moles/Vol] 135 mmol/L Low 136 - 145 mmol/L [facility] Urea nitrogen [Mass/Vol] 10 mg/dL 8 - 21 mg/d L [facility] CBC (HEMOGRAM)on 06-14-2024 Erythrocyte distribution width (RBC) [Ratio] 14.1 % Normal 11.5-15.0 [facility] Comment on above: Performed By: #### L [id number] #### Application Security Specialist: ISABEL YUSUF ([phone]) [facility] BRO RITTMAN (SWRLAB) [address] [place] [address] Hematocrit (Bld) [Volume fraction] 30.8 % Low 35.0-47.0 [facility] Comment on above: Performed By: #### L [id number] #### Application Security Specialist: ISABEL YUSUF ([phone]) [facility] BRO RITTMAN (SWRLAB) [address] [place] [address] Hemoglobin (Bld) [Mass/Vol] 10.5 g/dL Low 11.7-16.0 [facility] Comment on above: Performed By: #### L [id number] #### Application Security Specialist: ISABEL YUSUF ([phone]) [facility] BRO RITTMAN (SWRLAB) [address] [place] [address] MCH (RBC) [Entitic mass] 26.4 pg Normal 26.0-34.0 [facility] Comment on above: Performed By: #### L [id number] #### Application Security Specialist: IASBEL YUSUF ([phone]) [facility]ITALJ[facility] BRO RITTMAN (SWRLAB) [address] [place] [address] MCHC 34.1 % Normal 30.5-36.0 [facility] Comment on above: Performed By: #### L [id number] #### Application Security Specialist: ISABEL YUSUF ([phone]) [facility] BRO RITTMAN (SWRLAB) [address] [place] [address] MCV (RBC) [Entitic vol] 77.6 fL Normal 77.0-99.0 [facility] Comment on above: Performed By: #### L [id number] #### Application Security Specialist: ISABEL YUSUF ([id number]) BETTY BRO RITTMAN (SWRLAB) [address] [place] [address] Platelet mean volume (Bld) [Entitic vol] 8.5 fL Low 9.0-12.7 [facility] Comment on above: Result Comment: MPV is a calculated measurement using platelet volume ratio Performed By: #### L [id number] #### Application Security Specialist: ISABEL YUSUF ([phone]) [facility] BRO RITTMAN (SWRLAB) [address] [place] [address] Platelets (Bld) [#/Vol] 290 10*3/uL Normal 140-440 [facility] Comment on above: Performed By: #### L [id number] #### Application Security Specialist: ISABEL YUSUF ([phone]) [facility] BRO RITTM[facility] (SWRLAB) [address] [place] [address] RBC (Bld) [#/Vol] 3.97 10*6/uL Normal 3.80-5.20 [facility] Comment on above: Performed By: #### L [id number] #### Application Security Specialist: ISABEL YUSUF ([phone]) [facility] BR[facility] RIT[facility] (SWRLAB) [address] [place] [address] WBC (Bld) [#/Vol] 5.6 10*3/uL Normal 3.6-10.7 [facility] Comment on above: Performed By: #### L [id number] #### Application Security Specialist: ISABEL YUSUF ([phone]) [facility] BRO RITTM[facility] (SWRLAB) [address] [place] [address] CBC panel Auto (Bld)on 06-14 Erythrocyte distribution width (RBC) [Ratio] 14.1 % 11.5 - 15.0 % [facility] Hematocrit (Bld) [Volume fraction] 30.8 % Low 35.0 - 47.0 % [facility] Hemoglobin (Bld) [Mass/Vol] 10.5 g/dL Low 11.7 - 16.0 g/dL [facility] Interpretation and review of laboratory results Abnormal [facility] MCH (RBC) [Entitic mass] 26.4 pg 26.0 - 34.0 pg [facility] MCHC (RBC) [Mass/Vol] 34.1 % 30.5 - 36.0 % [facility] MCV (RBC) [Entitic vol] 77.6 fL 77.0 - 99.0 fL [facility] Platelet mean volume (Bld) [Entitic vol] 8.5 fL Low 9.0 - 12.7 fL [facility] Comment on above: MPV is a calculated measurement using platelet volume ratio Platelets (Bld) [#/Vol] 290 10*3/uL 140 - 440 10*3/uL [facility] RBC (Bld) [#/Vol] 3.97 10*6/uL 3.80 - 5.2 0 10*6/uL [facility] WBC (Bld) [#/Vol] 5.6 10*3/uL 3.6 - 10.7 10*3/uL [facility] CHLAMYDIA/GONORRHEAon 2024 CHLAMYDIA/GONORRHEA NEISSERIA GONORRHOEAE DNA PROBE [...] should be collected if clinically indicated. Normal [facility] Comment on above: Performed By: #### L [id number] ####Application Security Specialist: ISABEL YUSUF ([phone])[facility] ([facility])[address] [place] [address] COMPLETE URINALYSISon 2024 BACTERIA (#/HPF) IN URINE Moderate Abnormal Negative [facility] Comment on above: Performed By: #### L [id number] ####Application Security Specialist: ISABEL YUSUF ([phone])[facility] DIEUDONNE RITTMAN (SWRLAB)[address] [place] [address] [place] BILIRUBIN, TOTAL PRESENCE IN URINE Negative Normal Negative [facility] Comment on above: Performed By: #### L [id number] ####Application Security Specialist: ISABEL YUSUF ([phone])[facility] DIEUDONNE RITTMAN (SWRLAB)[address] Clarity (U) Clear Normal Clear [facility] Comment on above: Performed By: #### L [id number] ####Application Security Specialist: ISABEL YUSUF ([phone])[facility] DIEUDONNE RITTMAN (SWRLAB)[address] [place] [address] Color (U) Yellow Normal Lt. Yellow [facility] Comment on above: Performed By: #### L [id number] ####Application Security Specialist: ISABEL YUSUF ([phone])[facility] DIEUDONNE RITTMAN (SWRLAB)[address] [place] [address] [place] GLUCOSE (MG/DL) IN URINE Normal Normal Normal (<70 ) [facility] Comment on above: Performed By: #### L [id number] ####Application Security Specialist: ISABEL YUSUF ([phone])[facility] DIEUDONNE RITTMAN (SWRLAB)[address] [place] [address] [place] HEMOGLOBIN PRESENCE IN URINE Negative Normal Negative [facility] Comment on above: Performed By: #### L [id number] ####Application Security Specialist: ISABEL YUSUF ([phone])[facility] DIEUDONNE RITTMAN (SWRLAB)[address] [place] [address] [place] Ketones Ql (U) Negative Normal Negative [facility] Comment on above: Performed By: #### L [id number] ####Application Security Specialist: ISABEL YUSUF ([phone])[facility] DIEUDONNE RITTMAN (SWRLAB)[address] LEUKOCYTE ESTERASE PRESENCE IN URINE BY TEST STRIP 25 Herrera/uL Abnormal Negative [facility] Comment on above: Performed By: #### L [id number] ####Application Security Specialist: ISABEL YUSUF ([phone])[facility]ITALJasm[facility] BRO RITTMAN (SWRLAB)[address] [place] [address] [place] MUCUS (#/LPF) IN URINE SEDIMENT Few Normal Negative [facility] Comment on above: Performed By: #### L [id number] ####Application Security Specialist: ISABEL YUSUF ([phone])[facility]ITALJ[facility] BRO RITTMAN (SWRLAB)[address] NITRITE PRESENCE IN URINE Negative Normal Negative [facility] Comment on above: Performed By: #### L AB347 ####Application Security Specialist: ISABEL YUSUF ([phone])[facility]ITALJ[facility] BRO RITTMAN (SWRLAB)[address] [place] [address] pH (U) 6.0 [pH] Normal 5.0-8.0 [facility] Comment on above: Performed By: #### L [id number] ####Application Security Specialist: ISABEL YUSUF ([phone])[facility]ITAL[facility] BRO RITTMAN (SWRLAB)[address] [place] [address] Protein (U) [Mass/Vol] 20 mg/dL Abnormal Negative [facility] Comment on above: Performed By: #### L [id number] ####Application Security Specialist: ISABEL YUSUF ([phone])[facility]ITALJ[facility] BRO RITTMAN (SWRLAB)[address] [place] [address] [place] RBC (#/HPF) IN URINE SEDIMENT Negative Normal 0-2 [facility] Comment on above: Performed By: #### L [id number] ####Application Security Specialist: ISABEL YUSUF ([id number])[facility]ITALJ[facility] BRO RITTMAN (SWRLAB)[address] [place] [address] Specific gravity (U) [Rel density] 1.024 Normal 1.005-1.030 [facility] Comment on above: Performed By: #### L [id number] ####Application Security Specialist: ISABEL YUSUF ([phone])[facility]ITAL[facility] BR[facility] RIT[facility] (SWRLAB)[address] [place] [address] Specimen volume (U) 12 mL Normal [facility] Comment on above: Performed By: #### L [id number] ####Application Security Specialist: ISABEL YUSUF ([id number])[facility] DIEUDONNE RITTMAN (SWRLAB)[address] [place] [address] [place] SQUAMOUS EPITHELIAL CELLS (#/HPF) IN URINE SEDIMENT 3-5 Normal 3-5 [facility] Comment on above: Performed By: #### L [id number] ####Application Security Specialist: ISABEL YUSUF ([phone])[facility]ITAL[facility] BR[facility] RIT[facility] (SWRLAB)[address] [place] [address] UROBILINOGEN (MG/DL) IN URINE Normal Normal Normal (0-1) [facility] Comment on above: Performed By: #### L [id number] ####Application Security Specialist: ISABEL YUSUF ([phone])[facility]ITALJ[facility] BR[facility] RIT[facility] (SWRLAB)[address] [place] [address] WBC (LEUKOCYTE) (#/HPF) IN URINE SEDIMENT 0-2 Normal 0-5 [facility] Comment on above: Performed By: #### L [id number] ####Application Security Specialist: ISABEL YUSUF ([phone])[facility] BR[facility] (SWRLAB)[address] [place] [address] Consulton 06-14-2024 Consult ---- Attestation signed by Karrie Velásquez DO at 06/14/2024 5:52 PM Hospital Care (Present): I was present with the resident during the history and exam. I discussed the case with the resident and agree with the findings and plan as documented in the resident's note. ---- ENTERER Consult Patient Name: Sumit Green Patient : 2005 Room/Bed: Admission Date/Time: 06/14/2024 1:25 AM Primary Care Physician: Jeremy Vásquez HPI: Sumit Green is a 18 y.o. female presented to the [facility] emergency department after having suprapubic pain for the past 3 to 4 days and new onset flank pain with syncopal episodes at work and home. Patient also having vaginal discharge that she thought was yeast infection. hCG collected with +17,000. UA was positive for moderate bacteria and abdominal exam was positive for suprapubic pain and CVA tenderness. Patient received Rocephin prior to transfer [facility] for further evaluation Patient was transferred to [facility] for transvaginal ultrasound that showed gestational sac [...] Urine Date (more content not included)... Normal [facility] ECG 12-LEADon 06-14-2024 ECG 12-LEAD IMPRESSION: Sinus rhythm Borderline right axis deviation Electronically Signed On 06-14-2024 13:33:02 EST by Omar Dupree Normal [facility] ED Nursing Noteon 06-14-2024 ED Nursing Note Phoned [facility] ED. Hand off report given to charge nurse. Normal [facility] ED Nursing Note Transfer papers given to patient with instructions on how to get to [facility] ED. Patient verbalized understanding. Normal [facility] ED Nursing Note Patient arrived ambulatory to room 2 without difficulty. Patient complains of dizziness yesterday and passed out for a couple of seconds. Patient also complains of vaginal itching, swelling and pain x 3 days. Normal [facility] ED Provider Noteon ED Provider Note EMERGENCY DEPARTMENT ENCOUNTER Pt Name: Sumit Green Birthdate 2005 Date of evaluation: 06/14/2024 ED Provider: Abiodun Whitman DO CHIEF COMPLAINT Chief Complaint Patient presents with Dizziness Vaginal Itching HISTORY OF PRESENT ILLNESS (Location/Symptom, Timing/Onset, Context/Setting, Quality, Duration, Modifying Factors, Severity) Note limiting factors. I wore appropriate PPE for the entirety of this encounter. HPI Sumit Sadzewicz is a 18 y.o. female who presents [...] Alcohol use: Never Drug use: Never SCREENINGS [place]se[place] Coma Scale Best Eye Response: Spontaneous Best Verbal Response: Oriented Best Motor Response: Follows commands [place]se[place] Coma Scale Score: 15 PHYSICAL EXAM ED [...] Physician EKG interpretation can be found in [facility] RADIOLOGY (Per Emergency Physician): Interpretation per [...] with other cl (more content not included)... Normal [facility] ED Provider Note Emergency Department Encounter [facility] EMERGENCY DEPT Patient: Sumit Green : 2005 [...] the emergency department as a transfer from [facility] for suspected pyelonephritis. Brief ED course/MDM: Patient evaluated here by ENTERER. Recommend admission to medicine and continued antibiotics. [...] for clarification.) Omar Dupree MD Acute Care [facility] Omar Dupree MD 06/14/24 0858 [facility] ED Provider Note EMERGENCY DEPARTMENT ENCOUNTER [...] Response: Oriented Best Motor Response: Follows commands [place] Coma Scale Score: 15 PHYSICAL EXAM ED [...] Culture. Procedure Abnormality Status --------- ------ Complete Urinalysis[[id number]] Abnormal Final result Please view results [...] chorionic gonadotr (more content not included)... Normal [facility] HCG QUALITATIVE URINEon 05-27 Beta HCG ( test) Ql (U) Positive Normal Negative [facility] Comment on above: Result Comment: ORDE R COMMENTS: is the most common reason for HCG in urine, although choriocarcinoma, hydatidiform mole, and certain nontrophoblastic malignancies also result in detectable urinary HCG levels. Sensitivity = 20mIU/mL. Performed By: #### L [id number] ####Application Security Specialist: ISABEL YUSUF ([phone])[facility] JIMMIE (SWRLAB)[address] [place] [address] HCG QUANTITATIVE BLOODon HCG QUANTITATIVE 29659.3 mIU/mL Normal Females <5 [facility] Comment on above: Result Comment: KAREEMDanielito R COMMENTS: Values in should double every 2 [...] trophoblastic disease. Performed By: #### L AB15, [id number], [id number] ####Application Security Specialist: ISABEL YUSUF ([phone])[facility] (SWRLAB[address] HEPATITIS C ANTIBODYon 06-14 HCV Ab IA Ql Not detected Normal Not Detected [facility] Comment on above: Result Comment: Jina ents with DETECTED Hepatitis C Ab results should have a new specimen submitted for supplemental testing with a Hepatitis C Quantitative RNA assay (viral load), if clinically indicated. Performed By: #### L [id number] ####Application Security Specialist: ISABEL YUSUF ([phone])[facility] ([facility])[address] [place] [address] HIV1,2 COMBO ANTIGEN-ANTIBOD Y SCREENon 06-14-2024 HIV 1,2 COMBO ANTIGEN/ANTIBODY Non-Reactive Normal Nonreactive [facility] Comment on above: Result Comment: The specimen was non-reactive for HIV-1 and HIV-2 antibodies and p24 antigen using an FDA-cleared 4th generation HIV test. Based on this non-reactive screen result, further reflexive testing was not indicated and was, therefore, not performed. Performed By: #### L [id number] ####Application Security Specialist: ISABEL YUSUF ([phone])[facility] ([facility])[address] [place] [address] Laboratory - Chemistry and C hemistry - challengeon 06-14-2024 Procalcitonin [Mass/Vol] 0.03 ng/mL ZOILA F - 0.07 ng/mL [facility] [place] [address].3 m[IU]/mL Fema les <5 mIU/mL [facility] Laboratory - Chemistry and C hemistry - challengeOrdered By: Melony Woodson on 06-14-2024 Beta HCG ( test) Ql Positive Negative [facility] Beta HCG ( test) Ql (U) is the most common reason for HCG in urine, although choriocarcinoma, hydatidiform mole, and certain nontrophoblastic malignancies also result in detectable urinary HCG levels. Sensitivity = 20mIU/mL. [facility] Laboratory - Microbiology an d Antimicrobial susceptibilityon 06-14-2024 HCV Ab IA Ql Not detected Not Detected [facility] teo Comment on above: Patients with DETECT ED Hepatitis C Ab results should have a new specimen submitted for supplemental testing with a Hepatitis C Quantitative RNA assay (viral load), if clinically indicated. HIV 1+2 Ab+HIV1 p24 Ag IA Ql Non-Reactive Nonreactive [facility] Comment on above: The specimen was non -reactive for HIV-1 and HIV-2 antibodies and p24 antigen using an FDA-cleared 4th generation HIV test. Based on this non-reactive screen result, further reflexive testing was not indicated and was, therefore, not performed. N. gonorrhoeae DNA LATRICE+probe Ql (Cervical mucus)on 06-14-2024 C. trachomatis DNA LATRICE+probe Ql (Unsp spec) Not detected Not Detected [facility] Interpretation and review of laboratory results Normal [facility] N gonorrhoeae, DNA Probe Not detected Not Detec génesis [facility] Methodology: real-time PCR This test is intended [...] specimen should be collected if clinically indicated. [facility] No Panel Informationon 06-14 Interpretation and review of laboratory results Normal [facility] P Ethel 2 degrees [facility] NJ Interval 116 ms [facility] QRS Ethel 96 degrees [facility] QRSD Interval 92 ms [facility] QT Interval 390 ms [facility] QTC Interval 444 ms [facility] T Wave Ethel 21 degrees [facility] Sinus rhythm Borderline right axis deviation Electronically Signed On 06-14-2024 13:33:02 EST by Omar Dupree CV Omar Quijano MD - 06/14/2024 IMPRESSION: Sinus rhythm Borderline right axis deviation Electronically Signed On 06-14-2024 13:33:02 EST by Omar Dupree [facility] Values in should double every 2 to [...] or monitor tumors or gestational trophoblastic disease. [facility] No Panel InformationOrdered By: Melony Woodson on 06-14-2024 [facility] PROCALCITONIN TESTon 025 PROCALCITONIN 0.03 ng/mL Normal <0.07 [facility] [employer] [facility] [facility]ENTER Comment on above: Result Comment: IRENA Chairez COMMENTS: PCT <0.50 = Low risk of severe sepsis and/or septic shock. PCT >2.00 = High risk of severe sepsis and/or septic shock. Performed By: #### L [id number], [id number], [id number] ####Application Security Specialist: ISABEL YUSUF ([phone])[facility] (SWRLAB)[address] [place] [address] Procalcitonin [Mass/Vol]on 0 06-14-2024 Interpretation and review of laboratory results Normal [facility] PCT <0.50 = Low risk of severe sepsis and/or septic shock. PCT >2.00 = High risk of severe sepsis and/or septic shock. [facility] US PELVIS TRANSVAGINALon US PELVIS TRANSVAGINAL Patient Name: SUMIT GREEN : 2005 Exam Date/Time: 06/14/2024 05:38 Procedure: US PELVIS TRANSVAGINAL Ordering Provider: IVAN STEPHEN Reason For Exam: Pain/positive /quant [id number] EXAM TYPE: US PELVIS TRANSVAGINAL EXAM DATE [...] Electronically Signed Date/Time: 06/14/2024 6:45 AM EST [facility] US Pelvis transvaginalon Probable intrauterine gestational sac at proximal 6 weeks, 1 day gestational age. No pole is visualized. 1.8 cm subchorionic hemorrhage. Ectopic is not entirely excluded and follow-up beta-hCG and pelvic ultrasound are suggested. Report Dictated on Electronically Signed By: Suhail Card DO Electronically Signed Date/Time: 06/14/2024 6:45 AM EST [facility] SUMIT GREEN [facility] 2005 [id number] Exam Date/Time: 06/14/2024 05:38 Procedure: US PELVIS TRANSVAGINAL Ordering Provider: IVAN STEPHEN Reason For Exam: Pain/positive /quant [id number] EXAM TYPE: US PELVIS TRANSVAGINAL EXAM DATE [...] flow. FREE FLUID: Trace pelvic free fluid. [facility] Suhail Card DO - 06/14/2024 Patient Name: SUMIT GREEN : 2005 Exam Date/Time: 06/14/2024 05:38 Procedure: US PELVIS TRANSVAGINAL Ordering Provider: IVAN STEPHEN Reason For Exam: Pain/positive /quant [id number] EXAM TYPE: US PELVIS TRANSVAGINAL EXAM DATE [...] Electronically Signed Date/Time: 06/14/2024 6:45 AM EST [facility] Radiology Study observation (narrative) Matthew Jignesh alth US Pelvis transvaginalOrdere d By: Suhail Card on 06-14-2024 [facility] Work Phone: US RETROPERITONEALon 025 US RETROPERITONEAL [...] Electronically Signed Date/Time: 06/14/2024 1:53 PM EST Normal [facility] US Retroperitoneumon 025 Within limits of the examination, unremarkable exam Report Dictated on Electronically Signed By: Marcos Faye MD Electronically Signed Date/Time: 06/14/2024 1:53 PM [facility] Patient Name: SUMIT GREEN : 2005 [...] collection is seen adjacent to the kidneys. [facility] Marcos Faye MD - 06/14/2024 Patient Name: SUMIT GREEN [facility] 2005 [id number] Exam Date/Time: 06/14/2024 13:17 Procedure: US RETROPERITONEAL [...] Electronically Signed Date/Time: 06/14/2024 1:53 PM EST [facility] Radiology Study observation (narrative) [facility] alth US RetroperitoneumOrdered By : Marcos Faye on 06-14-2024 [facility] Work Phone: Urinalysis complete panel (U )on 06-14-2024 Bacteria LM.HPF (Urine sed) [#/Area] Moderate Abnormal Negative /HPF [facility] Bilirubin Ql (U) Negative Negative mg/dL [facility] Clarity (U) Clear Clear [facility] Color (U) Yellow Lt. Yellow [facility] Epithelial cells.squamous LM.HPF (Urine sed) [#/Area] 3-5 [facility] Ql (U) Normal Normal (<70) mg/dL [facility] Hemoglobin Ql (U) Negative Negative mg/dL [facility] Interpretation and review of laboratory results Abnormal [facility] Ketones (U) [Mass/Vol] Negative Negative mg/d L [facility] Leukocyte esterase Test strip Ql (U) 25 Abnormal Negative Herrera/uL [facility] Mucus LM.HPF (Urine sed) [#/Area] Few Negative /LPF [facility] Nitrite Ql (U) Negative Negative [facility] th pH (U) 6.0 [pH] 5.0 - 8.0 pH [facility] Protein (U) [Mass/Vol] 20 mg/dL Abnormal Negative [facility] RBC LM.HPF (Urine sed) [#/Area] Negative [facility] Specific gravity (U) [Rel density] 1.024 1.005 - 1.030 [facility] Urobilinogen (U) [Mass/Vol] Normal Normal (0-1) mg/dL [facility] Volume, Urine 12 mL [facility] WBC LM.HPF (Urine sed) [#/Area] 0-2 [facility] VAGINITIS PANEL MVP PCRon VAGINITIS PANEL MVP [...] abuse or for other forensic purposes. Normal [facility] Comment on above: Performed By: #### L [id number] #### Application Security Specialist: ISABEL YUSUF ([phone]) [facility] (SWRLAB) [address] Vital signson 06-14-2024 Heart rate 78 /min bpm [facility] COMPLETE URINALYSISon 2024 BACTERIA (#/HPF) IN URINE Many Abnormal Negative [facility] Comment on above: Performed By: #### L [id number] ####Application Security Specialist: ISABEL YUSUF ([phone])[facility] (SWRLAB)[address] [place] [address] BILIRUBIN, TOTAL PRESENCE IN URINE Negative Normal Negative [facility] Comment on above: Performed By: #### L [id number] ####Application Security Specialist: ISABEL YUSUF ([phone])[facility] (SWRLAB)[address] [place] [address] Clarity (U) Turbid Abnormal Clear [facility] Comment on above: Performed By: #### L [id number] ####Application Security Specialist: ISABEL YUSUF ([phone])[facility] (SWRLAB)[address] [place] [address] Color (U) Yellow Normal Lt. Yellow [facility] Comment on above: Performed By: #### L [id number] ####Application Security Specialist: ISABEL YUSUF ([phone])[facility] [place] (SWRLAB)[address] [place] [address] [place] GLUCOSE (MG/DL) IN URINE Normal Normal Normal (<70 ) [facility] Comment on above: Performed By: #### L [id number] ####Application Security Specialist: ISABEL YUSUF ([phone])[facility] (SWRLAB)[address] [place] [address] [place] HEMOGLOBIN PRESENCE IN URINE Negative Normal Negative [facility] Comment on above: Performed By: #### L [id number] ####Application Security Specialist: ISABEL YUSUF ([phone])[facility]ITAL[facility]asm[facility] (SWRLAB)[address] [place] [address] Ketones Ql (U) Negative Normal Negative [facility] Comment on above: Performed By: #### L [id number] ####Application Security Specialist: ISABEL YUSUF ([phone])[facility] (SWRLAB)[address] [place] [address] LEUKOCYTE ESTERASE PRESENCE IN URINE BY TEST STRIP Negative Normal Negative [facility] Comment on above: Performed By: #### L [id number] ####Application Security Specialist: ISABEL YUSUF ([phone])[facility] (SWRLAB)[address] [place] [address] [place] NITRITE PRESENCE IN URINE Negative Normal Negative [facility] Comment on above: Performed By: #### L [id number] ####Application Security Specialist: ISABEL YUSUF ([phone])[facility] (SWRLAB)[address] [place] [address] pH (U) 5.5 [pH] Normal 5.0-8.0 [facility] Comment on above: Performed By: #### L [id number] ####Application Security Specialist: ISABEL YUSUF ([phone])[facility] (SWRLAB)[address] [place] [address] Protein (U) [Mass/Vol] Negative Normal Negative [facility] Comment on above: Performed By: #### L [id number] ####Application Security Specialist: ISABEL YUSUF ([phone])[facility] (SWRLAB)[address] [place] [address] [place] RBC (#/HPF) IN URINE SEDIMENT 0-2 Normal 0-2 [facility] Comment on above: Performed By: #### L [id number] ####Application Security Specialist: ISABEL YUSUF ([phone])[facility] (SWRLAB)[address] [place] [address] Specific gravity (U) [Rel density] 1.022 Normal 1.005-1.030 [facility] Comment on above: Performed By: #### L [id number] ####Application Security Specialist: ISABEL YUSUF ([phone])[facility] (SWRLAB)[address] [place] [address] Specimen volume (U) 12 mL Normal [facility] Comment on above: Performed By: #### L [id number] ####Application Security Specialist: ISABEL YUSUF ([phone])[facility] (SWRLAB)[address] [place] [address] SQUAMOUS EPITHELIAL CELLS (#/HPF) IN URINE SEDIMENT 6-10 Abnormal 3-5 [facility] Comment on above: Performed By: #### L [id number] ####Application Security Specialist: ISABEL YUSUF ([phone])[facility] (SWRLAB)[address] [place] [address] UROBILINOGEN (MG/DL) IN URINE Normal Normal Normal (0-1) [facility] Comment on above: Performed By: #### L [id number] ####Application Security Specialist: ISABEL YUSUF ([phone])[facility] (SWRLAB)[address] [place] [address] WBC (LEUKOCYTE) (#/HPF) IN URINE SEDIMENT 0-2 Normal 0-5 [facility] Comment on above: Performed By: #### L [id number] ####Application Security Specialist: ISABEL YUSUF ([phone])[facility] (SWRLAB)[address] [place] [address] ED Nursing Noteon 05-27-2024 ED Nursing Note Pt ambulatory to room 6 with c/o flu like symptoms x 2 days with cough, sore throat, congestion . Pt reports having sweats last night that improved after shower. Pt reports having anterior left rib pain x 1 week. Normal [facility] ED Provider Noteon ED Provider Note [facility] ED EMERGENCY DEPARTMENT ENCOUNTER Pt Name: [...] culture. Procedure Abnormality Status --------- ------ Urine culture[[id number]] Urine Hold Cup[[id number]] Please view results for these tests on the individual orders. URINE CULTURE COMPLETE URINALYSIS WITH REFLEX TO CULTURE Narrative: The following orders were created for panel order Urinalysis complete with reflex to Culture. Procedure Abnormality Status --------- ------ Complete Urinalysis[[id number]] Abnormal Final result Please view results [...] Data Reviewed (more content not included)... Normal [facility] HCG QUALITATIVE URINEon Beta HCG ( test) Ql (U) Negative Normal Negative [facility] Comment on above: Result Comment: Plea se note: Very dilute urine specimens, as indicated by a low specific gravity, may not contain underwriting sales representative levels of hCG. If is still suspected, a first morning urine specimen should be collected 48 hours later and tested. ORDER COMMENTS: is the most common reason for HCG in urine, although choriocarcinoma, hydatidiform mole, and certain nontrophoblastic malignancies also result in detectable urinary HCG levels. Sensitivity = 20mIU/mL. Performed By: #### L [id number] ####Application Security Specialist: ISABEL YUSUF ([phone])[facility] ([facility])[address] [place] [address] Laboratory - Chemistry and C hemistry - challengeOrdered By: Russell Cárdenas on 05-27-2024 Beta HCG ( test) Ql Negative Negative [facility] Comment on above: Please note: Very di lute urine specimens, as indicated by a low specific gravity, may not contain underwriting sales representative levels of hCG. If is still suspected, a first morning urine specimen should be collected 48 hours later and tested. Beta HCG ( test) Ql (U) is the most common reason for HCG in urine, although choriocarcinoma, hydatidiform mole, and certain nontrophoblastic malignancies also result in detectable urinary HCG levels. Sensitivity = 20mIU/mL. [facility] truedash No Panel InformationOrdered By: Russell Cárdenas on 05-27-2024 [facility] Urinalysis complete panel (U )on 05-27-2024 Bacteria LM.HPF (Urine sed) [#/Area] Many Abnormal Negative /HPF [facility] Bilirubin Ql (U) Negative Negative mg/dL [facility] Clarity (U) Turbid Abnormal Clear [facility] Color (U) Yellow Lt. Yellow [facility] Epithelial cells.squamous LM.HPF (Urine sed) [#/Area] 6-10 Abnormal [facility] h Glucose Ql (U) Normal Normal (<70) mg/dL [facility] Hemoglobin Ql (U) Negative Negative mg/dL [facility] Interpretation and review of laboratory results Abnormal [facility] Ketones (U) [Mass/Vol] Negative Negative mg/d L [facility] Leukocyte esterase Test strip Ql (U) Negative Negative Herrera/uL [facility] Nitrite Ql (U) Negative Negative [facility] th pH (U) 5.5 [pH] 5.0 - 8.0 pH [facility] Protein (U) [Mass/Vol] Negative Negative mg/d L [facility] RBC LM.HPF (Urine sed) [#/Area] 0-2 [facility] Specific gravity (U) [Rel density] 1.022 1.005 - 1.030 [facility] Urobilinogen (U) [Mass/Vol] Normal Normal (0-1) mg/dL [facility] Volume, Urine 12 mL [facility] WBC LM.HPF (Urine sed) [#/Area] 0-2 [facility] XR Chest 2 Viewson No acute cardiopulmonary abnormality identified. Report Dictated on Electronically Signed By: Travis Harris MD Electronically Signed Date/Time: 05/27/2024 10:33 AM [facility] Patient Name: SUMIT GREEN : 2005 [id number] Exam Date/Time: 05/27/2024 10:19 Procedure: XR CHEST [...] pneumothorax. No acute osseous abnormality is demonstrated. [facility] Travis Harris MD - 05/27/2024 Patient Name: [...] Electronically Signed Date/Time: 05/27/2024 10:33 AM EST [facility] Radiology Study observation (narrative) [facility] 2 ViewsOrdered By: Travis Harris on 05-27-2024 [facility] Work Phone: Emergency Department Summary on 05-25-2024 Emergency Department Summary [facility] Medical Records Department [address] [place] [id number] Emergency Department Summary 05/25/24 MR#: [id number] Acct: [id number] Name: SUMIT GREEN JOSE ALEJANDRO Rep #: [id number] : 2005 18 From: Ronald Andrew MD [...] been on antibiotics recently and is taking ggoa-lra-gnynzia medications such as Tylenol and ibuprofen. She [...] dentist as soon as possible. Print Language: [place] Disposition Disposition: Home, Self Care Discharge Date/Time: 05/25/24 10:22 What to do if you have Problems For any increased pain, shortness of breath, bleeding, nausea or vomiting, chest pain, or any unexpected problems, contact your Primary Care Provider. Call [facility] ([phone]) or report to the closest Emergency Room. Call 911 if necessary. 05/25/24 1232 Cosigner Signature (if applicable): CC: No Primary Care Physician Signed Normal [facility] COMPLETE URINALYSISon 2024 BACTERIA (#/HPF) IN URINE Moderate Abnormal Negative [facility] truedash [facility] Comment on above: Performed By: #### L [id number] ####Application Security Specialist: ISABEL YUSUF ([phone])[facility] DIEUDONNE [employer] (RLAB)[address] [place] [address] BILIRUBIN, TOTAL PRESENCE IN URINE Negative Normal Negative [facility] [facility] Comment on above: Performed By: #### L [id number] ####Application Security Specialist: ISABEL YUSUF ([phone])[facility] DIEUDONNE [employer] (RLAB)[address] [place] [address] Clarity (U) Clear Normal Clear [facility] [employer] [facility] Comment on above: Performed By: #### L [id number] ####Application Security Specialist: ISABEL YUSUF ([phone])[facility] DIEUDONNE [place]TMAN (SWRLAB)[address] [place] [address] [place] Color (U) Yellow Normal Lt. Yellow [facility] Comment on above: Performed By: #### L [id number] ####Application Security Specialist: ISABEL YUSUF ([phone])[facility] (SWRLAB)[address] [place] [address] [place] GLUCOSE (MG/DL) IN URINE Normal Normal Normal (<70 ) [facility] Comment on above: Performed By: #### L [id number] ####Application Security Specialist: ISABEL YUSUF ([phone])[facility] (SWRLAB)[address] [place] [address] [place] HEMOGLOBIN PRESENCE IN URINE 0.5 mg/dL Abnormal Negative [facility] Comment on above: Performed By: #### L [id number] ####Application Security Specialist: ISABEL YUSUF ([phone])[facility] (SWRLAB)[address] [place] [address] [place] Ketones Ql (U) Negative Normal Negative [facility] Comment on above: Performed By: #### L [id number] ####Application Security Specialist: ISABEL YUSUF ([phone])[facility]ITALJasm[facility] (SWRLAB)[address] [place] [address] [place] LEUKOCYTE ESTERASE PRESENCE IN URINE BY TEST STRIP Negative Normal Negative [facility] Comment on above: Performed By: #### L [id number] ####Application Security Specialist: ISABEL UYSUF ([phone])[facility] (SWRLAB)[address] [place] [address] [place] MUCUS (#/LPF) IN URINE SEDIMENT Few Normal Negative [facility] Comment on above: Performed By: #### L [id number] ####Application Security Specialist: ISABEL YUSUF ([phone])[facility]ITALJasmyn CRUZDIEUDONNE RITTMAN (SWRLAB)[address] [place] [address] [place] NITRITE PRESENCE IN URINE Negative Normal Negative [facility] Comment on above: Performed By: #### L [id number] ####Application Security Specialist: ISABEL YUSUF ([phone])[facility]ITAL[facility] (SWRLAB)[address] [place] [address] pH (U) 7.0 [pH] Normal 5.0-8.0 [facility] Comment on above: Performed By: #### L [id number] ####Application Security Specialist: ISABEL YUSUF ([phone])[facility]ITALJasm[facility] (SWRLAB)[address] [place] [address] Protein (U) [Mass/Vol] 20 mg/dL Abnormal Negative [facility] Comment on above: Performed By: #### L [id number] ####Application Security Specialist: ISABEL YUSUF ([phone])[facility]ITALJasm[facility] [place] (SWRLAB)[address] [place] [address] RBC (#/HPF) IN URINE SEDIMENT 0-2 Normal 0-2 [facility] Comment on above: Performed By: #### L [id number] ####Application Security Specialist: ISABEL YUSUF ([phone])[facility]ITALJasmyn [facility] (SWRLAB)[address] [place] [address] Specific gravity (U) [Rel density] 1.029 Normal 1.005-1.030 [facility] Comment on above: Performed By: #### L [id number] ####Application Security Specialist: ISABEL YUSUF ([phone])[facility]ITALJasmyn [facility] (SWRLAB)[address] [place] [address] Specimen volume (U) 12 mL Normal [facility] Comment on above: Performed By: #### L [id number] ####Application Security Specialist: ISABEL YUSUF ([phone])[facility]ITALJasmyn [facility] (SWRLAB)[address] [place] [address] [place] SQUAMOUS EPITHELIAL CELLS (#/HPF) IN URINE SEDIMENT 0-2 Normal 3-5 [facility] Comment on above: Performed By: #### L [id number] ####Application Security Specialist: ISABEL YUSUF ([phone])[facility]ITALJasmyn CRUZDIEUDONNE RITTMAN (SWRLAB)[address] [place] [address] UROBILINOGEN (MG/DL) IN URINE Normal Normal Normal (0-1) [facility] Comment on above: Performed By: #### L [id number] ####Application Security Specialist: ISABEL MARILINHEATHER ([phone])[facility]ITALJasmyn CRUZDIEUDONNE RITTMAN (SWRLAB)[address] [place] [address] WBC (LEUKOCYTE) (#/HPF) IN URINE SEDIMENT 0-2 Normal 0-5 [facility] Comment on above: Performed By: #### L [id number] ####Application Security Specialist: ISABEL YUSUF ([phone])[facility]ITALJasmyn CRUZDIEUDONNE JUAN DAVIDTMAN (SWRLAB)[address] [place] [address] ED Provider Noteon ED Provider Note EMERGENCY [...] Culture. Procedure Abnormality Status --------- ------ Complete Urinalysis[[id number]] Abnormal Final result Please view results [...] to Culture hCG, urine, qualitative Complete Urinalysis [facility] MDM: 18 y.o. presented with abdominal pain. [...] no complete ileus no Severe pain at wi. R I discussed with the patient that [...] No peritone (more content not included)... Normal [facility] HCG QUALITATIVE URINEon 04-25 Beta HCG ( test) Ql (U) Negative Normal Negative [facility] Comment on above: Result Comment: Alison hubbard note: Very dilute urine specimens, as indicated by a low specific gravity, may not contain underwriting sales representative levels of hCG. If is still suspected, a first morning urine specimen should be collected 48 hours later and tested. ORDER COMMENTS: is the most common reason for HCG in urine, although choriocarcinoma, hydatidiform mole, and certain nontrophoblastic malignancies also result in detectable urinary HCG levels. Sensitivity = 20mIU/mL. Performed By: #### L [id number] ####Application Security Specialist: ISABEL YUSUF ([phone])[facility]ITALJasmyn SAMUEL ([facility])[address] [place] [address] Laboratory - Chemistry and C hemistry - challengeOrdered By: Russell Cárdenas on 05-06-2024 Beta HCG ( test) Ql Negative Negative [facility] Comment on above: Please note: Very di lute urine specimens, as indicated by a low specific gravity, may not contain underwriting sales representative levels of hCG. If is still suspected, a first morning urine specimen should be collected 48 hours later and tested. Beta HCG ( test) Ql (U) is the most common reason for HCG in urine, although choriocarcinoma, hydatidiform mole, and certain nontrophoblastic malignancies also result in detectable urinary HCG levels. Sensitivity = 20mIU/mL. [facility] No Panel InformationOrdered By: Russell Cárdenas on 05-06-2024 [facility] Urinalysis complete panel (U )on 05-06-2024 Bacteria LM.HPF (Urine sed) [#/Area] Moderate Abnormal Negative /HPF [facility] Bilirubin Ql (U) Negative Negative mg/dL [facility] Clarity (U) Clear Clear [facility] Color (U) Yellow Lt. Yellow [facility] Epithelial cells.squamous LM.HPF (Urine sed) [#/Area] 0-2 [facility] Glucose Ql (U) Normal Normal (<70) mg/dL [facility] Hemoglobin Ql (U) 0.5 mg/dL Abnormal Negative [facility] Interpretation and review of laboratory results Abnormal [facility] Ketones (U) [Mass/Vol] Negative Negative mg/d L [facility] Leukocyte esterase Test strip Ql (U) Negative Negative Herrera/uL [facility] Mucus LM.HPF (Urine sed) [#/Area] Few Negative /LPF [facility] Nitrite Ql (U) Negative Negative [facility] th pH (U) 7.0 [pH] 5.0 - 8.0 pH [facility] Protein (U) [Mass/Vol] 20 mg/dL Abnormal Negative [facility] RBC LM.HPF (Urine sed) [#/Area] 0-2 [facility] Specific gravity (U) [Rel density] 1.029 1.005 - 1.030 [facility] Urobilinogen (U) [Mass/Vol] Normal Normal (0-1) mg/dL [facility] Volume, Urine 12 mL [facility] WBC LM.HPF (Urine sed) [#/Area] 0-2 [facility] EMERGENCY REPORTon 4 EMERGENCY REPORT [facility] EMERGENCY ROOM REPORT NAME ACCOUNT SEX AGE ADMIT DISCHARGE PT MED. RECORD# NUMBER DATE DATE TYPE PETER [id number] F 17 07/25/23 07/25/23 3 SUMIT [id number] ROOM: ER DATE OF : 2005 DICTATING PHYSICIAN: Joe Farmer CHIEF COMPLAINT: Nausea, vomiting and abdominal pain. HISTORY OF PRESENT ILLNESS: The patient states that she has had some nausea and vomiting intermittently over the last couple of weeks. She was seen at [place] and was told she needed more testing. [...] did use marijuana fairly regularly over spring in the past week or two but [...] Joe Farmer MD 07/25/23 15:06 JOB #: [id number] Transcribed By: randa 07/25/23 15:19 Electronically signed by: DAVID Farmer M.D. 07/30/23 07:03 Page 2 of 2 SUMIT GREEN Emergency Room Report Normal [facility] C-REACTIVE PROTEINon 024 CRP 0.06 mg/dl Normal 0.00 - 0.90 [facility] Comment on above: Performed By: #### 2 98413 ####[facility],[address] [place] [address] CBC + DIFFon 07-25-2023 Baso # 0.02 x10EE3/UL Normal 0.00 - 0.10 [facility] Comment on above: Performed By: #### 2 63182 ####[facility],[address] [place] [address] Basophils/100 WBC (Bld) 0.3 % Normal 0.0 - 2.0 J [facility] Comment on above: Performed By: #### 2 38274 ####[facility],[address] [place] [address] CBC + DIFF Normal [facility] Comment on above: Result Comment: CBC- COMPLETE BLOOD COUNT Performed By: #### 2 83773 ####[facility],[address] [place] [address] EO # 0.09 x10EE3/UL Normal 0.00 - 0.50 [facility] Comment on above: Performed By: #### 2 50429 ####[facility],[address] [place] [address] Eosinophils/100 WBC (Bld) 1.2 % Normal 0.0 - 7.0 [facility] Comment on above: Performed By: #### 2 08740 ####[facility],[address] [place] [address] Erythrocyte distribution width (RBC) [Ratio] 17.1 % High 12.0 - 15.6 [facility] Comment on above: Performed By: #### 2 87134 ####[facility],[address] [place] [address] Hematocrit (Bld) [Volume fraction] 36.0 % Normal 34.0 - 46.0 [facility] Comment on above: Performed By: #### 2 48499 ####[facility],[address] [place] [address] Hemoglobin (Bld) [Mass/Vol] 12.0 g/dL Normal 12.0 - 16.0 [facility] Comment on above: Performed By: #### 2 17915 ####[facility],[address] [place] [address]69 Lymph # 0.85 x10EE3/UL Normal 0.80 - 2.80 [facility] Comment on above: Performed By: #### 2 61886 ####[facility],[address] [place] [address] 99243 Lymphocytes/100 WBC (Bld) 10.8 % Low 20.0 - 45.0 [facility] Comment on above: Performed By: #### 2 20229 ####[facility],[address] [place] [address] MANUAL DIFF N/A Normal [facility] Comment on above: Performed By: #### 2 03146 ####[facility],[address] [place] [address] MCH (RBC) [Entitic mass] 25 pg Low 27 - 33 [facility] Comment on above: Performed By: #### 2 06960 ####[facility],[address] [place] [address] MCHC 33 X10 3 Normal 32 - 36 [facility] Comment on above: Performed By: #### 2 33624 ####[facility],[address] [place] [address] MCV (RBC) [Entitic vol] 74 fL Low 80 - 99 J [facility] Comment on above: Performed By: #### 2 03849 ####[facility],[address] [place] [address] [place] # 0.70 x10EE3/UL Normal 0.20 - 1.00 [facility] Comment on above: Performed By: #### 2 23102 ####[facility],[address] [place] [address] MONOS % 9.0 % Normal 0.0 - 10.0 [facility] Comment on above: Performed By: #### 2 85509 ####[facility],[address] [place] [address] Morphology Zack (Bld) [Interp] N/A Normal [facility] Comment on above: Performed By: #### 2 22421 ####[facility],[address] [place] [address] Neut # 6.14 x10EE3/UL Normal 1.50 - 7.10 [facility] Comment on above: Performed By: #### 2 55419 ####[facility],[address] [place] [address] Neutrophils/100 WBC (Bld) 78.7 % High 46.0 - 76.0 [facility] Comment on above: Performed By: #### 2 42901 ####[facility],[address] [place] [address]6969 PLATELET 279 x10EE3/UL Normal 150 - 450 [facility] Comment on above: Performed By: #### 2 29962 ####[facility],[address] [place] [address]138 Platelet mean volume (Bld) [Entitic vol] 7.5 fL Normal 6.6 - 10.5 [facility] Comment on above: Result Comment: AUTO MATED DIFFERENTIAL Performed By: #### 2 78575 ####[facility],[address] [place] [address] 96147 RBC 4.87 x 10EE6/UL Normal 4.10 - 5.30 [facility] Comment on above: Performed By: #### 2 65170 ####[facility],[address] [place] [address]11 WBC 7.8 x 10EE3/UL Normal 4.5 - 10.8 [facility] Comment on above: Performed By: #### 2 69509 ####[facility],[address] [place] [address]105 CMP with eGFRon 07-25-2023 AGE 17 years Normal [facility] Comment on above: Performed By: #### 2 96041 #### [facility],[address] [place] [address] 60839 Albumin [Mass/Vol] 4.2 g/dL Normal 3.4 - 5.0 [facility] Comment on above: Performed By: #### 2 69054 #### [facility],[address] [place] [address] 27872 Albumin/Globulin [Mass ratio] 1.3 {ratio} Normal 0.9 - 1.6 [facility] Comment on above: Performed By: #### 2 34419 #### [facility],[address] [place] [address] 41496 ALK PHOS 64 U/L Normal 46 - 116 [facility] Comment on above: Performed By: #### 2 99420 #### [facility],[address] [place] [address] 37022 ALT [Catalytic activity/Vol] 18 U/L Normal 16 - 63 [facility] Comment on above: Performed By: #### 2 41446 #### [facility],[address] [place] [address] 90014 Anion gap [Moles/Vol] 12 mmol/L Normal 10 - 20 [facility] Comment on above: Performed By: #### 2 49540 #### [facility],[address] [place] [address] 39417 AST [Catalytic activity/Vol] 17 U/L Normal 13 - 39 [facility] Comment on above: Performed By: #### 2 26540 #### [facility],[address] [place] [address] 85800 B/C RATIO 5 ratio Normal 0 - 30 [facility] Comment on above: Performed By: #### 2 75434 #### [facility],[address] [place] [address] 97924 Bilirubin [Mass/Vol] 0.3 mg/dL Normal 0.2 - 1.0 [facility] Comment on above: Performed By: #### 2 64580 #### [facility],[address] [place] [address] 95087 Calcium [Mass/Vol] 8.7 mg/dL Normal 8.5 - 10.1 [facility] Comment on above: Performed By: #### 2 09888 #### [facility],[address] [place] [address] 89290 Chloride [Moles/Vol] 108 mmol/L High 98 - 107 [facility] Comment on above: Performed By: #### 2 33152 #### [facility],[address] [place] [address] 20010 CMP with eGFR Normal [facility] Comment on above: Result Comment: COMP REHENSIVE METABOLIC PANEL Performed By: #### 2 52522 #### [facility],[address] [place] [address] 51286 CO2 [Moles/Vol] 28.3 mmol/L Normal 21.0 - 32.0 [facility] Comment on above: Performed By: #### 2 57121 #### [facility],[address] [place] [address] 39105 Creatinine [Mass/Vol] 0.73 mg/dL Normal 0.55 - 1.02 [facility] Comment on above: Performed By: #### 2 36898 #### [facility],[address] [place] [address] 09654 GFR/1.73 sq M.predicted among non-blacks MDRD (S/P/Bld) [Vol rate/Area] mL/min/{1.73_m2} Normal 60 - 999 [facility] Comment on above: Performed By: #### 2 01188 #### [facility],[address] [place] [address] 10380 Result Comment: ACCO RDING TO THE NATIONAL KIDNEY DISEASE EDUCATION PROGRAM(NKDE), A NORMAL eGFR IS A VALUE GREATER THAN OR EQUAL TO 60 ML/MIN/1.73 SQ METERS. CHRONIC KIDNEY DISEASE: <60mL/MIN/1.73 SQ METERS KIDNEY FAILURE: <15mL/MIN/1.73 SQ METERS THIS TEST SHOULD ONLY BE USED FOR PATIENTS 18 YEARS OF AGE AND OLDER. Globulin (S) [Mass/Vol] 3.2 g/dL Normal 1.5 - 3.8 [facility] Comment on above: Performed By: #### 2 37367 #### [facility],[address] [place] [address] 13534 Glucose [Mass/Vol] 90 mg/dL Normal 74 - 106 [facility] Comment on above: Performed By: #### 2 93845 #### [facility],[address] [place] [address] 24568 Potassium [Moles/Vol] 4.1 mmol/L Normal 3.5 - 5.1 [facility] Comment on above: Performed By: #### 2 08272 #### [facility],[address] [place] [address] 67045 Protein [Mass/Vol] 7.4 g/dL Normal 6.4 - 8.2 [facility] Comment on above: Performed By: #### 2 79205 #### [facility],[address] [place] [address] 45869 Sodium [Moles/Vol] 144 mmol/L Normal 136 - 145 [facility] Comment on above: Performed By: #### 2 81628 #### [address] [address] Urea nitrogen [Mass/Vol] 4 mg/dL Low 7 - 18 [facility] Comment on above: Performed By: #### 2 80735 #### [facility],[address] [place], [place] [id number] CT ABDOMEN/PELVIS [facility] 2023 CT ABDOMEN/PELVIS [place] [address] Patient: SUMIT GREEN Phone#: : 2005 Age: 17 Gender: F Pt. Type: ER Account: [id number] Location: [facility] Ordering: JOE FARMER Exam Date: 07/25/2023/12:25 Family Phys: Charge Code: 660366 Physician: [place] Order #: [id number] Dose#: 9.00 PROCEDURE: CT ABDOMEN/PELVIS WITH CONTRAST [...] 17 Gender: F Pt. Type: ER Account: [id number] Location: [facility] Ordering: JOE FARMER Exam Date: 07/25/2023/12:25 Family Phys: Charge Code: [id number] Physician: [place] Order #: [id number] Dose#: 9.00 CONCLUSION: 1. Small amount of free fluid is present in the pelvis. 2. No other acute abdominal or pelvic abnormality is identified. Dictated by: Dhara Ruano MD on 07/25/2023 at 12:45 Approved by: Dhara Ruano MD on 07/25/2023 at 12:52 Normal [facility] DRUG SCREEN URINE MEDICon AMPHETAMINES Negative Normal [facility] Comment on above: Performed By: #### 2 52572 #### [place] [address] B-DIAZEPINES Negative Normal [facility] Comment on above: Performed By: #### 2 93105 #### [place] [id number] BARBITURATES Negative Normal [facility] Comment on above: Performed By: #### 2 84335 #### [facility],[address] [place] [address] COCAINE Negative Normal [facility] Comment on above: Performed By: #### 2 53566 #### [facility],[address] [place] [address] DRUG SCREEN URINE MEDIC Normal [facility] Comment on above: Result Comment: DRUG SCREEN - URINE Performed By: #### 2 41142 #### [facility],[address] [place] [address],[place] [address] METHADONE Negative Normal [facility] Comment on above: Performed By: #### 2 39255 #### [facility],[address] [place] [address] OPIATES Negative Normal [facility] Comment on above: Performed By: #### 2 45076 #### [facility],[address] [place] [address] PCP Negative Normal [facility] Comment on above: Performed By: #### 2 39548 #### [facility],[address] [place] [address] THC Positive Normal [facility] Comment on above: Result Comment: JINA ENTS RECEIVING PROTON PUMP INHIBITORS MAY DEMONSTRATE FALSE POSITIVE THC/CANNABINOID RESULTS. AN ALTERNATIVE CONFIRMATORY METHOD SHOULD BE CONSIDERED TO VERIFY POSITIVE RESULTS. Performed By: #### 2 16672 #### [facility],[address] [place] [address] LIPASEon 07-25-2023 Lipase [Catalytic activity/Vol] 15.0 U/L Normal 15.0 - 78.0 [facility] Comment on above: Result Comment: *PLE ASE NOTE THAT RANGES FOR LIPASE HAVE CHANGED OF 04/22/23 DUE TO AN ASSAY UPDATE BY THE FENDER MECHANIC APPRENTICE.THE NEW ASSAY RANGE IS 6-250 U/L, WITH A REFERENCE RANGE OF 16-77 U/L. Performed By: #### 2 41964 #### [facility],[address] [place] [address] URINEon 07-25-2023 Beta HCG ( test) Ql (U) Negative Normal NEGATIVE [facility] Comment on above: Performed By: #### 2 02834 #### [facility],[address] [place] [address] EXTERNAL QC DONE? YES Normal [facility] Comment on above: Performed By: #### 2 92740 #### [facility],[address] [place] [address] INTERNAL QC PASS Normal [facility] Comment on above: Performed By: #### 2 55324 #### [facility],[address] [place] [address] URINALYSISon 07-25-2023 Amorphous NONE Normal [facility] Comment on above: Performed By: #### 2 12778 #### [facility],[address] [place] [address] Bacteria 1+ Normal [facility] Comment on above: Performed By: #### 2 18541 #### [facility],[address] [place], [place] [id number] Bilirubin Ql (U) Negative Normal NORMAL: NEGATIVE [facility] Comment on above: Performed By: #### 2 18084 #### [facility],[address] [place], [place] [id number] Casts NONE Normal [facility] Comment on above: Performed By: #### 2 82598 #### [facility],[address] [place], [place] [address] Clarity (U) clear Normal NORMAL: CLEAR [facility] Comment on above: Performed By: #### 2 72300 #### [facility],[address] [place], [place] [id number] Color (U) yellow Normal NORMAL: YELLOW [facility] Comment on above: Performed By: #### 2 66824 #### [facility],[address],[place] [address] Crystals LM Nom (Urine sed) NONE Normal [facility] Comment on above: Performed By: #### 2 33513 #### [facility],[address] [place] [address] 37240 Epi Cells FEW Normal [facility] Comment on above: Performed By: #### 2 65221 #### [facility],[address] [place] [address] 81108 Glucose Ql (U) NORM Normal NORMAL: NORMAL [facility] Comment on above: Performed By: #### 2 11264 #### [facility],[address] [place] [address] 69913 Hemoglobin Ql (U) 250 Abnormal NORMAL: NEGATIVE [facility] Comment on above: Performed By: #### 2 29107 #### [facility],[address] [place] [address] 76129 Ketone Negative Normal NORMAL: NEGATIVE [facility] Comment on above: Performed By: #### 2 25926 #### [facility],[address] [place] [address] 65915 Leukocytes Negative Normal NORMAL: NEGATIVE [facility] Comment on above: Performed By: #### 2 74078 #### [facility],[address] [place] [address] 77359 Mucous 2+ Normal [facility] Comment on above: Performed By: #### 2 66422 #### [facility],[address] [place] [address] 68529 Nitrite Ql (U) Negative Normal NORMAL: NEGATIVE [facility] Comment on above: Performed By: #### 2 70397 #### [facility],[address] [place] [address] 34583 pH (U) 5 [pH] Normal NORMAL: 5.0-8.0 [facility] Comment on above: Performed By: #### 2 54577 #### [facility],[address] [place] [address] 41642 Protein Ql (U) 30 Abnormal NORMAL: NEGATIVE [facility] Comment on above: Performed By: #### 2 82363 #### [facility],[address] [place] [address] 22513 Rbc 5-10 Normal 0-3/hpf [facility] Comment on above: Performed By: #### 2 48599 #### [facility],[address] [place] [address] 66058 Sp [place] 1.025 Normal NORMAL: 1.010-1.030 [facility] Comment on above: Performed By: #### 2 78772 #### [facility],[address] [place] [address]343 Specimen Type Clean catch Normal [facility] Comment on above: Performed By: #### 2 74897 #### [facility],[address] [place] [address] Urinalysis dipstick W Reflex Microscopic panel (U) SEE BELOW Normal [facility] Comment on above: Result Comment: MICR OSCOPIC Performed By: #### 2 34261 #### [facility],[address] [place] [address] 48679 Urobilinog NORM Normal NORMAL: NORMAL [facility] Comment on above: Performed By: #### 2 45693 #### [facility],[address] [place] [address] 15455 Wbc 1-5 Normal 0-5/hpf [facility] Comment on above: Performed By: #### 2 15384 #### [facility],[address] [place] [address] 32831 Yeast NONE Normal [facility] Comment on above: Performed By: #### 2 39132 #### [facility],[address] [place] [address]651 US RUQ (GB/PANCREAS)on 07-24 US RUQ (GB/PANCREAS) [place] [address] Patient: SUMIT GREEN Phone#: : 2005 Age: 17 Gender: F Pt. Type: ER Account: [id number] Location: 2 Ordering: JOE FARMER Exam Date: 07/25/2023/13:39 Family Phys: JEREMY VÁSQUEZ Charge Code: 266352 Physician: [place] Order #: [id number] Dose#: PROCEDURE: RUQ (GB) ULTRASOUND COMPARISON: None. [...] JASSO MD ON 07/25/2023 AT 14:29 Normal [facility] Enteric Cultureon 07-22-2023 Enteric Culture Release to patient->Automatic 64694&Stool Enteric Culture: No Salmonella or Shigella isolated. [...] Shigella, Campylobacter and Shiga-toxin positive E.coli. Normal [facility] Comment on above: Performed By: #### S TOOL #### [address] [address] Giardia and Cryptosporidia S creenon 07-22-2023 Giardia and Cryptosporidia Screen Release to patient->Automatic 21156&Stool Giardia and Cryptosporidia Screen: Giardia lamblia Ag: NEGATIVE Source: STOOL Collected: 07/22/23 13:58 Site: Received : 07/22/23 20:50 Giardia and Cryptosporidia Screen FINAL 07/23/23 12:22 Giardia lamblia Ag: NEGATIVE Enzyme Immunoassay - Normal Result: Negative - Cryptosporidium Ag: NEGATIVE Enzyme Immunoassay - Normal Result: Negative Normal [facility] Comment on above: Performed By: #### C TNG #### [place] [address] Ironon 07-21-2023 %Saturation 8 % Low 13-59 [facility] Comment on above: Order Comment: Pleas e include TIBC. Release to patient->Automatic 71095&Blood Performed By: #### I CAR #### [place] [address] TIBC 427 ug/dL Normal 228-428 [facility] Comment on above: Order Comment: Pleas e include TIBC. Release to patient->Automatic 85801&Blood Performed By: #### I CAR #### [place] [address] Transglutaminase IgAon 07-20 Transglutaminase IgA <1.60 Normal 0.00-8.99 [facility] Comment on above: Order Comment: Relea se to patient->Automatic 76106&Blood Result Comment: NEGATIVE Interpretation of Results: Negative: <9.0 AU/mL Equivocal: 9.0-16.0 AU/mL Positive: >16.0 AU/mL Method: The anti-tTG antibodies were determined using an KARAN-based commercially available kit (Eu-tTG [facility]). Performed By: #### T RGLA #### [place] [address] C-Reactive Proteinon 024 CRP [Mass/Vol] mg/L Normal 0.0-1.0 [facility] Comment on above: Order Comment: Nitza nixon include TIBC. Release to patient->Automatic 88135&Blood Result Comment: CRP determinations in neonates should be interpreted with caution. CRP may be elevated in circumstances not associated with inflammation (e.g. difficult delivery, pneumothorax). In premature neonates CRP levels may not rise to abnormal levels even if sepsis is present; some speculate that immature liver function decreases the ability to generate a CRP response. Performed By: #### C RP #### [address] [address] C-reactive protein (Lab Jeannie ect)on 07-20-2023 CRP [Mass/Vol] mg/L 0.0 - 1.0 mg/dL [facility] Comment on above: CRP determinations i [...] external lab?->No Release to patient->Manual release only 83983&Urine-First Void^^^Urine&Urine C. trachomatis PCR on GeneXpert: NEGATIVE-Chlamydia [...] may result in reduced assay sensitivity. Normal [facility] Comment on above: Performed By: #### C TNG #### [place] [address] Comp Metabolic Panelon 07-19 Glucose [Mass/Vol] 84 mg/dL Normal 70-99 [facility] Comment on above: Order Comment: Pleas e include TIBC. Release to patient->Automatic 69136&Blood Result Comment: Regina menjivar for Diagnosis of Diabetes: Fasting Specimen (no caloric intake for at least 8 hours): <100 mg/dL Normal 100-125 mg/dL Increased risk for Diabetes >125 mg/dL Diagnostic for Diabetes Random Glucose (any time of day without regard to last meal): > or = 200 mg/dL plus Classic Symptoms of Diabetes Performed By: #### C MP #### [place] [address] Protein [Mass/Vol] 7.6 g/dL Normal 5.9-8.4 [facility] Comment on above: Order Comment: Pleas e include TIBC. Release to patient->Automatic 35697&Blood Performed By: #### C MP #### [place] [address] Urea nitrogen [Mass/Vol] 7 mg/dL Normal 4-19 [facility] Comment on above: Order Comment: Pleas e include TIBC. Release to patient->Automatic 90483&Blood Performed By: #### C MP #### [address] [address] Albumin [Mass/Vol] 4.8 g/dL Normal 3.5-5.0 [facility] Comment on above: Order Comment: Pleas e include TIBC. Release to patient->Automatic 08005&Blood Performed By: #### C MP #### [address] [address] ALP [Catalytic activity/Vol] 59 U/L Normal 43-83 [facility] Comment on above: Order Comment: Pleas e include TIBC. Release to patient->Automatic 79922&Blood Performed By: #### C MP #### [address] [address] ALT [Catalytic activity/Vol] 9 U/L Normal 0-34 [facility] Comment on above: Order Comment: Pleas e include TIBC. Release to patient->Automatic 10560&Blood Performed By: #### C MP #### [address] [address] AST [Catalytic activity/Vol] 21 U/L Normal 0-31 [facility] Comment on above: Order Comment: Pleas e include TIBC. Release to patient->Automatic 79596&Blood Performed By: #### C MP #### [address] [address] Bili,Total 0.2 mg/dL Normal 0.0-1.0 [facility] Comment on above: Order Comment: Pleas e include TIBC. Release to patient->Automatic 65272&Blood Performed By: #### C MP #### [address] [address] Calcium [Mass/Vol] 9.5 mg/dL Normal 7.6-11.0 [facility] Comment on above: Order Comment: Pleas e include TIBC. Release to patient->Automatic 88179&Blood Performed By: #### C MP #### [address] [address] CO2 [Moles/Vol] 21.9 mmol/L Low 22.0-29.0 [facility] Comment on above: Order Comment: Pleas e include TIBC. Release to patient->Automatic 53949&Blood Performed By: #### C MP #### [address] [address] Creatinine [Mass/Vol] 0.66 mg/dL Normal 0.50-1.00 [facility] Comment on above: Order Comment: Pleas e include TIBC. Release to patient->Automatic 54372&Blood Performed By: #### C MP #### [address] [address] Chloride [Moles/Vol] 104 mmol/L Normal 96-108 [facility] Comment on above: Order Comment: Pleas e include TIBC. Release to patient->Automatic 51325&Blood Performed By: #### C MP #### [address] [address] Potassium [Moles/Vol] 3.9 mmol/L Normal 3.3-5.1 [facility] Comment on above: Order Comment: Pleas e include TIBC. Release to patient->Automatic 07594&Blood Performed By: #### C MP #### [address] [address] Sodium [Moles/Vol] 138 mmol/L Normal 133-145 [facility] Comment on above: Order Comment: Pleas e include TIBC. Release to patient->Automatic 58757&Blood Performed By: #### C MP #### [address] [address] Complete Blood Counton 07-19 Differential Complete Automated Normal [facility] Comment on above: Order Comment: Relea se to patient->Automatic 19973&Blood Performed By: #### C BC #### [address] [address] Basophils/100 WBC (Bld) 0.50 % Normal 0.00-1.00 [facility] Comment on above: Order Comment: Relea se to patient->Automatic 44498&Blood Performed By: #### C BC #### [address] [address] Eosinophils/100 WBC (Bld) 2.00 % Normal 0.00-3.00 [facility] Comment on above: Order Comment: Relea se to patient->Automatic 09545&Blood Performed By: #### C BC #### [place] [address] Erythrocyte distribution width (RBC) [Ratio] 15.7 % High 0.0-14.4 [facility] Comment on above: Order Comment: Relea se to patient->Automatic 07062&Blood Performed By: #### C BC #### [place] [address] Hematocrit (Bld) [Volume fraction] 36.7 % Low 37.0-46.0 [facility] Comment on above: Order Comment: Relea se to patient->Automatic 98463&Blood Performed By: #### C BC #### [place] [address] Hemoglobin (Bld) [Mass/Vol] 11.7 g/dL Low 12.0-15.0 [facility] Comment on above: Order Comment: Relea se to patient->Automatic 40808&Blood Performed By: #### C BC #### [place] [address] Immature granulocytes/100 WBC (Bld) 0.50 % Normal [facility] Comment on above: Order Comment: Relea se to patient->Automatic 25046&Blood Result Comment: Melissa ture Granulocyte Percent includes promyelocytes, myelocytes, and metamyelocytes. IG% > 1.0 indicates a left shift is present. With automated differentials, bands are included in the neutrophil count and not in the Immature Granulocyte Percent. Performed By: #### C BC #### [address], [place] [id number] [phone] Lymphocytes/100 WBC (Bld) 35.5 % Normal 25.0-45.0 [facility] Comment on above: Order Comment: Relea se to patient->Automatic 87282&Blood Performed By: #### C BC #### [address] [address] MCH (RBC) [Entitic mass] 24.6 pg Low 25.0-35.0 [facility] Comment on above: Order Comment: Relea se to patient->Automatic 94610&Blood Performed By: #### C BC #### [address] [address] MCHC 31.9 % Normal 31.0-37.0 [facility] Comment on above: Order Comment: Relea se to patient->Automatic 42995&Blood Performed By: #### C BC #### [address] [address] MCV (RBC) [Entitic vol] 77.3 fL Low 78.0-96.0 [facility] Comment on above: Order Comment: Relea se to patient->Automatic 06296&Blood Performed By: #### C BC #### [address] [address] Monocytes/100 WBC (Bld) 12.30 % High 3.00-6.00 [facility] Comment on above: Order Comment: Relea se to patient->Automatic 89832&Blood Performed By: #### C BC #### [address] [address] Neutrophils (Bld) [#/Vol] 2.7 10*3/uL Normal 2.0-7.2 [facility] Comment on above: Order Comment: Relea se to patient->Automatic 67163&Blood Performed By: #### C BC #### [address] [address] Neutrophils/100 WBC (Bld) 49.2 % Normal 34.0-64.0 [facility] Comment on above: Order Comment: Relea se to patient->Automatic 91721&Blood Performed By: #### C BC #### [address] [address] Nucleated RBC/100 WBC (Bld) [Ratio] 0.0 % Normal -1.0-0.0 [facility] Comment on above: Order Comment: Relea se to patient->Automatic 03196&Blood Performed By: #### C BC #### [address] [address] Platelet mean volume (Bld) [Entitic vol] 9.8 fL Normal [facility] Comment on above: Order Comment: Relea se to patient->Automatic 88141&Blood Result Comment: MPV is platelet range and age dependent Performed By: #### C BC #### [address] [address] Platelets (Bld) [#/Vol] 266 10*3/uL Normal 150-450 [facility] Comment on above: Order Comment: Relea se to patient->Automatic 41381&Blood Performed By: #### C BC #### [address] [address] RBC 4.75 10E12/L Normal 4.10-4.80 [facility] Comment on above: Order Comment: Relea se to patient->Automatic 09688&Blood Performed By: #### C BC #### [address] [address] WBC (Bld) [#/Vol] 5.5 10*3/uL Normal 4.5-13.0 [facility] Comment on above: Order Comment: Relea se to patient->Automatic 94391&Blood Performed By: #### C BC #### [address] [address] Complete Blood Count with Di fferentialon 07-20-2023 Basophils/100 WBC (Bld) 0.50 % 0.00 - 1.00 % [facility] Differential Complete Automated [facility] on [facility] Eosinophils/100 WBC (Bld) 2.00 % 0.00 - 3.00 % [facility] Erythrocyte distribution width (RBC) [Ratio] 15.7 % High 0.0 - 14.4 % [facility] Hematocrit (Bld) [Volume fraction] 36.7 % Low 37.0 - 46.0 % [facility] Hemoglobin (Bld) [Mass/Vol] 11.7 g/dL Low 12.0 - 15.0 g/dl [facility] Immature granulocytes/100 WBC (Bld) 0.50 % [facility] Comment on above: Immature Granulocyte Percent includes promyelocytes, myelocytes, and metamyelocytes. IG% > 1.0 indicates a left shift is present. With automated differentials, bands are included in the neutrophil count and not in the Immature Granulocyte Percent. Interpretation and review of laboratory results Abnormal [facility] Lymphocytes/100 WBC (Bld) 35.5 % 25.0 - 45.0 % [facility] MCH (RBC) [Entitic mass] 24.6 pg Low 25.0 - 35.0 pg [facility] MCHC 31.9 % 31.0 - 37.0 % [facility] MCV (RBC) [Entitic vol] 77.3 fL Low 78.0 - 96.0 fl [facility] Monocytes/100 WBC (Bld) 12.30 % High 3.00 - 6.00 % [facility] Neutrophils (Bld) [#/Vol] 2.7 10*3/uL [facility] Neutrophils/100 WBC (Bld) 49.2 % 34.0 - 64.0 % [facility] Nucleated RBC/100 WBC (Bld) [Ratio] 0.0 % -1.0 - 0.0 % [facility] Platelet mean volume (Bld) [Entitic vol] 9.8 fL [facility] Comment on above: MPV is platelet range and age dependent Platelets (Bld) [#/Vol] 266 10*3/uL [facility] RBC (Bld) [#/Vol] 4.75 10*6/uL [facility] WBC (Bld) [#/Vol] 5.5 10*3/uL [facility] Release to patient->Automatic [facility] Comprehensive metabolic pane l (Lab Collect)on 07-20-2023 Albumin [Mass/Vol] 4.8 g/dL 3.5 - 5.0 g/dL [facility] ALP [Catalytic activity/Vol] 59 U/L 43 - 83 U/L [facility] ALT [Catalytic activity/Vol] 9 U/L 0 - 34 U/L [facility] AST [Catalytic activity/Vol] 21 U/L 0 - 31 U/L [facility] Bilirubin [Mass/Vol] 0.2 mg/dL 0.0 - 1.0 mg/dL [facility] Calcium [Mass/Vol] 9.5 mg/dL 7.6 - 11. 0 mg/dL [facility] Chloride [Moles/Vol] 104 mmol/L 96 - 108 mmol/L [facility] CO2 [Moles/Vol] 21.9 mmol/L Low 22.0 - 29.0 mmol/L [facility] Creatinine [Mass/Vol] 0.66 mg/dL 0.50 - 1.00 mg/dL [facility] Glucose [Mass/Vol] 84 mg/dL 70 - 99 mg/dL [facility] Comment on above: Criteria for Diagnos is of Diabetes: Fasting Specimen (no caloric intake for at least 8 hours): <100 mg/dL Normal 100-125 mg/dL Increased risk for Diabetes >125 mg/dL Diagnostic for Diabetes Random Glucose (any time of day without regard to last meal): > or = 200 mg/dL plus Classic Symptoms of Diabetes Potassium [Moles/Vol] 3.9 mmol/L 3.3 - 5.1 mmol/L [facility] Protein [Mass/Vol] 7.6 g/dL 5.9 - 8.4 g/dL [facility] Sodium [Moles/Vol] 138 mmol/L 133 - 145 mmol/L [facility] Urea nitrogen [Mass/Vol] 7 mg/dL 4 - 19 mg/d L [facility] Ferritinon 07-20-2023 Ferritin [Mass/Vol] 18 ng/mL Low 25-207 [facility] Comment on above: Order Comment: Pleas e include TIBC. Release to patient->Automatic 72904&Blood Performed By: #### F ERTN #### [place] [address] Ferritin (Lab Collect)on Ferritin [Mass/Vol] 18 ng/mL Low 25 - 207 ng/mL A [facility] Immunoglobulin Aon Immunoglobulin A 131 mg/dL Normal 61-348 [facility] Comment on above: Order Comment: Pleas e include TIBC. Release to patient->Automatic 68864&Blood Performed By: #### I GA #### [place] [address] Immunoglobulin A 131 mg/dL 61 - 348 mg/dL [facility] Ironon 07-20-2023 Iron [Mass/Vol] 34 ug/dL Normal 30-160 [facility] Comment on above: Order Comment: Pleas e include TIBC. Release to patient->Automatic 60019&Blood Performed By: #### I CAR #### [address] [address] Iron & TIBC (Lab Collect)on 07-20-2023 % Saturation 8 % Low 13 - 59 % [facility] Interpretation and review of laboratory results Abnormal [facility] Iron [Mass/Vol] 34 ug/dL 30 - 160 ug/dL [facility] TIBC 427 ug/dL 228 - 428 ug/dL [facility] Please include TIBC. Release to patient->Automatic [facility] No Panel Informationon 07-19 Interpretation and review of laboratory results Abnormal [facility] Please include TIBC. Release to patient->Automatic [facility] Progress Noteon 07-20-2023 Production [employer] Authentication Interface Message Text Patient ID: Sumit [...] (GI) Sees Mary Melton for anxiety in [place] Subjective HPI Comments: In ED 5 days--> [...] Blood, Urine Negative Negative POCT Urine Specific [place] 1.015 1.005 - 1.030 POCT Ketones, Urine Negative Negative mg/dl POCT Glucose, Urine Negative Negative mg/dl Normal [facility] TSH with Reflex to T4, Free (Lab Collect)on 07-20-2023 TSH with reflex to T4, Free 1.420 [facility] TSH with reflex T4FRon 07-19 TSH with reflex T4FR 1.420 uIU/mL Normal 0.500-4.300 [facility] Comment on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 mass index (BMI) [Ratio] 18.47 kg/m2 Ki Breen DO Work Phone: [facility] 08-10-2024 12:43-0400 Body weight 50.35 kg Kileah Breen DO Work Phone: [facility] 08-10-2024 12:43-0400 Diastolic blood pressure 64 mm[Hg] Kileah Jamisonovic DO Work Phone: [facility] 08-10-2024 12:43-0400 Heart rate 103 /min Ki Jamshid DO Work Phone: [facility] 08-10-2024 12:43-0400 Systolic blood pressure 93 mm[Hg] iK Breen DO Work Phone: [facility] 08-06-2024 13:00-0400 Diastolic blood pressure 63 mm[Hg] Marian Coughlin DO Work Phone: [facility] 08-06-2024 13:00-0400 Heart rate 97 /min Marian Coughlin DO Work Phone: [facility] 08-06-2024 13:00-0400 SaO2% (BldA) [Mass fraction] 100 % Marian Coughlin DO Work Phone: [facility] 08-06-2024 13:00-0400 Systolic blood pressure 94 mm[Hg] Marian Coughlin DO Work Phone: [facility] 08-06-2024 12:29-0400 Body temperature 98.1 [degF] Marian Coughlin DO Work Phone: [facility] 08-06-2024 12:29-0400 Respiratory rate 18 /min Marian Coughlin DO Work Phone: [facility] 06-25-2024 15:08-0500 Body height 165.1 cm Vick Cortez MD Work Phone: [facility] 06-25-2024 15:08-0500 Body mass index (BMI) [Ratio] 17.64 kg/m2 Vick Cortez MD Work Phone: [facility] 06-25-2024 15:08-0500 Body temperature 97.9 [degF] Vick Cortez MD Work Phone: [facility] 06-25-2024 15:08-0500 Body weight 48.08 kg Vick Cortez MD Work Phone: [facility] 06-25-2024 15:08-0500 Diastolic blood pressure 78 mm[Hg] Vick Cortez MD Work Phone: [facility] 06-25-2024 15:08-0500 Heart rate 79 /min Vick Cortez MD Work Phone: [facility] 06-25-2024 15:08-0500 SaO2% (BldA) [Mass fraction] 98 % Vick Cortez MD Work Phone: [facility] Comment on above: Ra 06-25-2024 15:08-0500 Systolic blood pressure 115 mm[Hg] Vick Cortez MD Work Phone: [facility] 06-16-2024 08:11-0500 Body temperature 98.6 [degF] [employer] DO Work Phone: [facility] 06-16-2024 08:11-0500 Diastolic blood pressure 63 mm[Hg] [employer] DO Work Phone: [facility] 06-16-2024 08:11-0500 Heart rate 77 /min [employer] DO Work Phone: [facility] 06-16-2024 08:11-0500 Respiratory rate 16 /min [employer] DO Work Phone: [facility] 06-16-2024 08:11-0500 SaO2% (BldA) [Mass fraction] 100 % [employer] DO Work Phone: [facility] 06-16-2024 08:11-0500 Systolic blood pressure 100 mm[Hg] [employer] DO Work Phone: [facility] 06-14-2024 18:44-0500 Body height 165.1 cm [employer] DO Work Phone: [facility] 06-14-2024 18:44-0500 Body mass index (BMI) [Ratio] 17.64 kg/m2 [employer] DO Work Phone: [facility] 06-14-2024 18:44-0500 Body weight 48.08 kg [employer] DO Work Phone: [facility] 05-27-2024 11:07-0500 Diastolic blood pressure 62 mm[Hg] Mikal Woodson MD Work Phone: [facility] 05-27-2024 11:07-0500 Heart rate 74 /min Mikal Woodson MD Work Phone: [facility] 05-27-2024 11:07-0500 Respiratory rate 16 /min Mikal Woodson MD Work Phone: [facility] 05-27-2024 11:07-0500 SaO2% (BldA) [Mass fraction] 98 % Mikal Woodson MD Work Phone: [facility] 05-27-2024 11:07-0500 Systolic blood pressure 108 mm[Hg] Mikal Woodson MD Work Phone: [facility] 05-27-2024 09:56-0500 Body height 170.2 cm Mikal Woodson MD Work Phone: [facility] 05-27-2024 09:56-0500 Body mass index (BMI) [Ratio] 16.6 kg/m2 Mikal Woodson MD Work Phone: [facility] 05-27-2024 09:56-0500 Body temperature 97.3 [degF] Mikal Woodson MD Work Phone: [facility] 05-27-2024 09:56-0500 Body weight 48.08 kg Mikal Woodson MD Work Phone: [facility] 05-06-2024 14:50-0500 Body height 167.6 cm Ovi Delacruz MD Work Phone: [facility] 05-06-2024 14:50-0500 Body mass index (BMI) [Ratio] 17.75 kg/m2 Ovi Delacruz MD Work Phone: [facility] 05-06-2024 14:50-0500 Body temperature 98.01 [degF] Ovi Delacruz MD Work Phone: [facility] 05-06-2024 14:50-0500 Body weight 49.9 kg Ovi Delacruz MD Work Phone: [facility] 05-06-2024 14:50-0500 Diastolic blood pressure 68 mm[Hg] Ovi Delacruz MD Work Phone: [facility] 05-06-2024 14:50-0500 Heart rate 78 /min Ovi Delacruz MD Work Phone: [facility] 05-06-2024 14:50-0500 Respiratory rate 16 /min Ovi Delacruz MD Work Phone: [facility] 05-06-2024 14:50-0500 SaO2% (BldA) [Mass fraction] 100 % Ovi Delacruz MD Work Phone: [facility] 05-06-2024 14:50-0500 Systolic blood pressure 115 mm[Hg] Ovi Delacruz MD Work Phone: [facility] 07-16-2023 20:45-0400 Body temperature 97.6 [degF] [facility] 07-16-2023 20:45-0400 Diastolic blood pressure 65 mm[Hg] [facility] 07-16-2023 20:45-0400 Heart rate 87 /min [facility] 07-16-2023 20:45-0400 Respiratory rate 16 /min [facility] 07-16-2023 20:45-0400 SaO2% (BldA) [Mass fraction] 97 % [facility] 07-16-2023 20:45-0400 Systolic blood pressure 100 mm[Hg] [facility] 07-16-2023 18:58-0400 Body height 167.64 cm [facility] 07-16-2023 18:58-0400 Body mass index (BMI) [Percentile] Per age and sex 0.7 % [facility] 07-16-2023 18:58-0400 Body mass index (BMI) [Ratio] 16.5 kg/m2 [facility] 07-16-2023 18:58-0400 Body weight 46.43 kg [facility] 12-08-2022 19:58-0400 Diastolic blood pressure 71 mm[Hg] [facility] 12-08-2022 19:58-0400 Heart rate 82 /min [facility] 12-08-2022 19:58-0400 Respiratory rate 14 /min [facility] 12-08-2022 19:58-0400 SaO2% (BldA) [Mass fraction] 98 % [facility] 12-08-2022 19:58-0400 Systolic blood pressure 101 mm[Hg] [facility] 12-08-2022 17:18-0400 Body height 167.64 cm [facility] 12-08-2022 17:18-0400 Body mass index (BMI) [Percentile] Per age and sex 1.4 % [facility] 12-08-2022 17:18-0400 Body mass index (BMI) [Ratio] 16.7 kg/m2 [facility] 12-08-2022 17:18-0400 Body temperature 97.5 [degF] [facility] 12-08-2022 17:18-0400 Body weight 47.21 kg [facility] 10-04-2022 12:36-0400 Body mass index (BMI) [Percentile] Per age and sex 3 % [facility] 10-04-2022 12:36-0400 Body mass index (BMI) [Ratio] 17.1 kg/m2 [facility] 10-04-2022 12:36-0400 Body temperature 96.9 [degF] [facility] 10-04-2022 12:36-0400 Body weight 48.2 kg [facility] 10-04-2022 12:36-0400 Diastolic blood pressure 68 mm[Hg] [facility] 10-04-2022 12:36-0400 Heart rate 70 /min [facility] 10-04-2022 12:36-0400 Respiratory rate 14 /min [facility] 10-04-2022 12:36-0400 SaO2% (BldA) [Mass fraction] 100 % [facility] 10-04-2022 12:36-0400 Systolic blood pressure 115 mm[Hg] [facility] 09-22-2022 22:17-0400 Heart rate 84 /min [facility] Work Phone: 01-14-2022 22:17-0400 Respiratory rate 17 /min [facility] Work Phone: 01-14-2022 22:17-0400 SaO2% (BldA) [Mass fraction] 97 % [facility] Work Phone: 01-14-2022 20:48-0400 Body height 167.64 cm [facility] Work Phone: 01-14-2022 20:48-0400 Body mass index (BMI) [Percentile] Per age and sex 19.5 % [facility] Work Phone: 01-14-2022 20:48-0400 Body mass index (BMI) [Ratio] 18.7 kg/m2 [facility] Work Phone: 01-14-2022 20:48-0400 Body temperature 98.4 [degF] [facility] Work Phone: 01-14-2022 20:48-0400 Body weight 52.6 kg [facility] Work Phone: 01-14-2022 20:48-0400 Diastolic blood pressure 79 mm[Hg] [facility] Work Phone: 01-14-2022 20:48-0400 Systolic blood pressure 118 mm[Hg] [facility] Work Phone: Encounters Encounter Date Encounter Type Care Provider Facility Start: 11-23-2024 End: 11-23-2024 Subsequent hospital visit by physician Lynda Neal MD Work Phone: [facility] Start: 11-22-2024 End: 11-23-[address] Reji Garcia MD Work Phone: [facility] Start: 11-22-2024 End: 11-23-[address] Alyx Navarro DO -[facility] Work Phone: Start: 11-08-2024 End: 11-08-2024 Office outpatient visit 15 minutes Modesto Cates DO Work Phone: [facility] Comment on above: care, first in second trimester (Primary Dx); Circumvallate placenta in second trimester; Hx of anorexia nervosa; Iron deficiency anemia, unspecified iron deficiency anemia type Start: 11-08-2024 End: 11-08-2024 ambulatory MODESTO CATES [facility] Start: 10-30-2024 End: 10-30-2024 ambulatory KI BREEN [facility] Start: 10-30-2024 End: 10-30-2024 Subsequent hospital visit by physician Stacey Crouch MD Work Phone: [facility] Comment on above: Circumvallate placen ta in second trimester Start: 10-10-2024 End: 10-10-2024 ambulatory MODESTO CATES [facility] Start: 10-10-2024 End: 10-10-2024 Office outpatient visit 15 minutes Modesto Cates DO Work Phone: [facility] Comment on above: care, first in second trimester (Primary Dx); Circumvallate placenta in second trimester; Vaping nicotine dependence, tobacco product; Hx of anorexia nervosa Start: 09-26-2024 End: 09-26-2024 Emergency department patient visit Dr. Reji Garcia MD Work Phone: -Emergency Department Work Phone: Start: 09-13-2024 End: 11-09-2024 Follow-up encounter Aurea Rodriguez DO Work Phone: [facility] Comment on above: Urine culture, Urina lysis with reflex microscopic, Glucose Challenge Screen, , CBC Start: 09-12-2024 End: 09-12-2024 Office outpatient visit 15 minutes Aurea Rodriguez DO Work Phone: [facility] Comment on above: care, first in second trimester (Primary Dx); Recurrent UTI (urinary tract infection) complicating , first trimester; Iron deficiency anemia, unspecified iron deficiency anemia type Start: 09-12-2024 End: 09-12-2024 ambulatory KI BREEN [facility] Start: 09-04-2024 End: 09-05-2024 Emergency department patient visit Ovi Delacruz MD Work Phone: [facility] EMERGENCY DEPT Comment on above: Acute cystitis with hematuria (Primary Dx); Calcium oxalate calculus; Bacterial vaginosis; Nicki vaginitis Start: 08-10-2024 End: 08-10-2024 ambulatory KI BREEN [facility] Start: 08-10-2024 End: 08-10-2024 Office outpatient visit 15 minutes Ki Shaheenclay DO Work Phone: [facility] Comment on above: Dysuria (Primary Dx) ; Encounter for supervision of normal first , first trimester; care, first in second trimester; Iron deficiency anemia secondary to inadequate dietary iron intake Start: 08-06-2024 End: 08-06-2024 Telephone encounter Gloria Ohara MD Work Phone: [facility] Start: 08-06-2024 End: 08-06-2024 ambulatory MARIAN COUGHLIN [facility] Start: 08-06-2024 End: 08-06-2024 Subsequent hospital visit by physician Marian Coughlin DO Work Phone: [facility] OB Triage H2 Start: 07-19-2024 End: 07-19-2024 ambulatory JEREMY VÁSQUEZ [facility] Start: 07-17-2024 End: 07-17-2024 Office outpatient visit 15 minutes Kaitlin Aiken DO Work Phone: [facility] Comment on above: Encounter for superv ision in primigravida, antepartum (Primary Dx); Vaping nicotine dependence, tobacco product Start: 07-17-2024 End: 07-17-2024 ambulatory KAITLIN AIKEN [facility] Start: 06-29-2024 End: 06-29-2024 Office outpatient new 30 minutes Gloria Ohara MD Work Phone: [facility] Comment on above: Recurrent UTI (urina ry tract infection) complicating , first trimester (Primary Dx); Amenorrhea Start: 06-29-2024 End: 06-29-2024 Subsequent hospital visit by physician Karrie Velásquez DO Work Phone: [facility] Comment on above: Threatened Start: 06-29-2024 End: 06-29-2024 ambulatory KARRIE [facility] Start: 06-26-2024 End: 06-26-2024 Orders Only Vick Cortez MD Work Phone: [facility] Comment on above: Recurrent UTI (urina ry tract infection) complicating , first trimester (Primary Dx) Start: 06-25-2024 End: 06-25-2024 ambulatory MAYO MAGUIRE [facility] Start: 06-25-2024 End: 06-25-2024 Transitional care manage srvc 14 day discharge Mayo Maguire MD Work Phone: [facility] Comment on above: Recurrent UTI (urina ry tract infection) complicating , first trimester (Primary Dx) Start: 06-14-2024 End: 06-14-2024 Orders Only Alli Sharif DO Work Phone: [facility] Comment on above: Threatened (Primary Dx) Start: 06-14-2024 End: 06-16-2024 [facility] Start: 06-14-2024 End: 06-16-2024 Emergency department patient visit Zahira Graham DO Work Phone: [facility] Observation Unit 5E Comment on above: Pyelonephritis affec ting , antepartum (Primary Dx) Start: 05-27-2024 End: 05-27-2024 Subsequent hospital visit by physician [facility] X[facility] Port[facility] Radiology Comment on above: Arrived Start: 05-27-2024 End: 05-27-2024 Emergency department patient visit Mikal Woodson MD Work Phone: [facility] ED Comment on above: Acute cough (Primary Dx); Dysuria Start: 05-25-2024 End: 05-25-2024 Emergency department patient visit Ronald Andrew Facility:[facility] Start: 05-06-2024 End: 05-06-2024 Emergency department patient visit Ovi Delacruz MD Work Phone: [facility] ED Comment on above: Lower abdominal pain (Primary Dx); Acute cystitis with hematuria Start: 07-25-2023 End: 07-25-2023 Emergency department patient visit JOE Aguilar FARMER [facility] Start: 07-22-2023 End: 07-23-2023 ambulatory [facility] Start: 07-22-2023 End: 07-22-2023 Subsequent hospital visit by physician Jeremy Vásquez MD Work Phone: [facility] Comment on above: Diarrhea, unspecifie d type Start: 07-20-2023 End: 07-21-2023 ambulatory [facility] Start: 07-20-2023 End: 07-20-2023 ambulatory [facility] Start: 07-20-2023 End: 07-20-2023 Subsequent hospital visit by physician Jeremy Vásquez MD Work Phone: [facility] [place] Comment on above: Weight loss Start: 07-16-2023 End: 07-16-2023 Emergency department patient visit [facility]-Emergency Department Work Phone: Start: 04-29-2023 End: 04-29-2023 ambulatory GABY VIOLETA Facility:[facility] Start: 04-05-2023 End: 04-05-2023 Emergency department patient visit JOE Aguilar [facility] Start: 12-09-2022 End: 12-09-2022 ambulatory STACEY Bradshaw OLY [facility] Start: 12-08-2022 End: 12-08-2022 Emergency department patient visit [facility]-Emergency Department Work Phone: Start: 10-04-2022 End: 10-04-2022 Emergency department patient visit [facility]-Emergency Department Work Phone: Start: 08-18-2022 End: 08-18-2022 ambulatory [facility] Work Phone: Start: 08-18-2022 End: 08-18-2022 Patient encounter procedure [facility] Ultrasound Start: 08-13-2022 End: 08-13-2022 ambulatory JEREMY Contreras VÁSQUEZ [facility] Start: 01-14-2022 End: 01-14-2022 Emergency department patient visit [facility]Emergency Department Procedures Date Procedure Procedure Detail Performing Clinician Start: 11-23-2024 Bacterial vaginosis and vaginitis rRNA panel - Vaginal fluid by Probe Aurea Rodriguez DO Work Phone: Start: 11-23-2024 URINE HOLD CUP Aurea lundberg DO Work Phone: Start: 11-23-2024 Urnls dip stick/tabl et reagent auto microscopy Aurea Rodriguez DO Work Phone: Start: 11-23-2024 Fern test Aurea arroyo DO Work Phone: Start: 11-23-2024 Ph body fluid not el sewhere specified Aurea Rodriguez DO Work Phone: Start: 11-23-2024 Measurement of pH in vaginal fluid specimen using nitrazine yellow for detection of rupture of amniotic membrane Dr. Reji Garcia MD Work Phone: Comment on above: Amniotic fluid not p resent indicates No Rupture of FetalMembranes at time of specimen collection. Start: 11-23-2024 Urnls dip stick/tabl et reagent auto microscopy Dr. Reji Garcia MD Work Phone: Start: 11-08-2024 Blood count complete automated Aurea [...] Glucose quantitative blood xcpt reagent strip Marian Galvez Roman DO Work Phone: Start: 06-29-2024 Antibody screen MODESTO NOLAN Comment on above: Performed By: #### L [id number], [id number] ####Application Security Specialist: ISABEL YUSUF ([phone])[facility] BLOOD [facility] ([facility])[address] [place] [address] Start: 06-29-2024 End: 06-29-2024 Antibody screen rbc each serum technique Gloria Ohara MD Work Phone: Start: 06-29-2024 Blood count complete automated Gloria Ohara MD Work Phone: Start: 06-29-2024 Iaad ia hepatitis b surface antigen Gloria Ohara MD Work Phone: Start: 06-29-2024 Us preg uterus real time w/image dcmtn transvag Alli Yohana Sharif DO Work Phone: Start: 06-25-2024 Culture bacterial quanttative colony count urine Vick Cortez MD Work Phone: Start: 06-16-2024 Comprehensive metabo lic panel Katiayvette Soliman DO Work Phone: Start: 06-15-2024 Culture [...] Phone: Start: 06-14-2024 Us transvaginal Jamari Ivan [employer]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 Work Phone: Start: 06-14-2024 Bacterial vaginosis and vaginitis rRNA panel - Vaginal fluid by Probe Zahira Vines Exoprise DO Work Phone: Start: 06-14-2024 Basic metabolic pane l calcium total Zahira A [employer]op[employer] DO Work Phone: Start: 06-14-2024 Hepatitis c antibody Ph yvette Soliman DO Work Phone: Start: 06-14-2024 Urinalysis complete panel - Urine Zahira Vines [employer]oprise DO Work Phone: Start: 06-14-2024 Urine test visual color cmprsn meths Zahira A [employer] DO Work Phone: Start: 06-14-2024 Urnls dip stick/tabl et reagent auto microscopy Zahira Vines [employer]oprise DO Work Phone: Start: 05-27-2024 Radiologic exam [...] Comment: URIN ALYSIS Performed By: #### [id number] #### [facility],[address] [place] [address] Start: 07-20-2023 C-reactive protein Jeremy Vásquez MD [...] for Adults (1 - 1-dose 75+ series) [facility] Start: 2054 Zoster Vaccines (1 of 2) Zoster Vacc rosendo (1 of 2) [facility] Start: 01-12-2026 DTaP/Tdap/Td Vaccine s (7 - Td or Tdap) DTaP/Tdap/Td Vaccines (7 - Td or Tdap) [facility] Start: 01-12-2026 Tetanus Diphtheria a nd Pertussis Vaccines (7 - Td or Tdap) Tetanus Diphtheria and Pertussis Vaccines (7 - Td or Tdap) [facility] Start: 09-04-2025 Screening for Chlamy demar trachomatis Chlamydia and Gonorrhea Screening [facility] Start: 06-29-2025 Screening for Chlamy demar trachomatis Chlamydia and Gonorrhea Screening [facility] Start: 02-19-2025 End: 02-19-2025 Patient encounter procedure 02/19/2025 10:30 AM EDT Appointment [facility] [address] [phone] Stacey Crouch MD [address] [address] [facility] Start: 01-22-2025 End: 01-22-2025 Patient encounter procedure 01/22/2025 10:30 AM EDT Appointment [facility] [address] [phone] Stacey Crouch MD 201 [facility] [address] [place] [address] [facility] Start: 12-25-2024 End: 12-25-2024 Patient encounter procedure 12/25/2024 11:00 AM EDT Appointment [facility] [address] [phone] Stacey Crouch MD [address] [facility] [address] [place] [address] [facility] Start: 2024 Influenza vaccination [facility] Start: 2024 RSV Immunization for Adults (1 - Risk 1-dose series) RSV Immunization for Adults (1 - Risk 1-dose series) [facility] Start: 12-05-2024 End: 12-05-2024 Patient encounter procedure 12/05/2024 8:15 AM EDT Routine [address] [phone] Eli Barrera DO [address] [place] [address] [facility] Start: 11-27-2024 End: 11-27-2024 Patient encounter procedure 11/27/2024 11:00 AM EDT Appointment [address] [phone] Stacey Crouch MD 201 [facility] [address] [place] [address] [facility] Start: 11-23-2024 End: 11-23-2024 [facility] Start: 11-23-2024 Nonstress test [facility] Start: 11-23-2024 Obstetric monitoring [facility] Start: 11-23-2024 Patient discharge [facility] Start: 11-23-2024 Vital signs measurements [facility] Start: 11-08-2024 End: 11-08-2024 Patient encounter procedure 11/08/2024 12:45 PM EDT Routine [address] [place] [phone] Modesto Cates, DO [address] [facility] [place] [address] [facility] Start: 10-30-2024 End: 10-30-2024 Patient encounter procedure 10/30/2024 10:30 AM EDT Appointment [facility] [address] [place] [phone] Stacey Crouch MD [address] [place], [place] [id number] [facility] Start: 10-24-2024 End: 12-11-2024 CBC panel - Blood by Automated count CBC Lab Routine care, first in second trimester Iron deficiency anemia, unspecified iron deficiency anemia type Expected: 10/24/2024 (Approximate), Expires: 12/11/2024 [facility] Comment on above: Expected: 10/24/2024 (Approximate), Expires: 12/11/2024 Start: 10-24-2024 End: 12-11-2024 Glucose Challenge Screen, Glucose Challenge Screen, Lab Routine care, first in second trimester Expected: 10/24/2024 (Approximate), Expires: 12/11/2024 [facility] Work Phone: Comment on above: Expected: 10/24/2024 (Approximate), Expires: 12/11/2024 Start: 10-10-2024 End: 10-10-2024 Patient encounter procedure 10/10/2024 8:40 AM EDT Routine [facility] [address] [place] [phone] Modesto Cates, DO [address] [place] [address] [facility] Start: 09-26-2024 [facility] Start: 09-12-2024 End: 09-12-2024 Patient encounter procedure [facility] Start: 09-12-2024 Subsequent hospital visit by physician 09/12/2024 9:00 AM EDT Hospital Encounter [facility] [address] [place] [phone] [facility] Start: 08-14-2024 End: 08-14-2024 Patient encounter procedure 08/14/2024 8:30 AM EDT Routine [facility] [address] [place] [phone] Karo Delcid, DO [address] [place] [address] [facility] Start: 08-10-2024 End: 08-10-2025 US for US OB 14+ weeks anatomy scan Imaging Routine Encounter for supervision of normal first , first trimester Expected: 08/10/2024, Expires: 08/10/2025 [facility] Work Phone: Comment on above: Expected: 08/10/2024 , Expires: 08/10/2025 Start: 08-10-2024 End: 08-10-2024 Patient encounter procedure 08/10/2024 12:30 PM EDT Routine [facility] [address] [place] [phone] [facility] Start: 07-19-2024 End: 07-19-2024 ambulatory 07/19/2024 9:00 AM EDT Initial [facility] [address] [place] [phone] [facility] Start: 07-17-2024 End: 07-17-2024 Patient encounter procedure 07/17/2024 8:40 AM EDT Routine [facility] [address] [place] [phone] Kaitlin Aiken, DO [address] [place] [address] [facility] Start: 06-29-2024 End: 06-29-2024 Patient encounter procedure [facility] Start: 06-29-2024 Subsequent hospital visit by physician 06/29/2024 12:30 PM EST Hospital Encounter [facility] [address] [place] [phone] Karrie Velásquez DO [address] [facility] [address] [place] [address] [facility] Start: 06-25-2024 End: 06-25-2024 Patient encounter procedure 06/25/2024 2:50 PM EST Office Visit [facility] [address] [place] [address] Vick Cortez MD [address] [place], [place] [phone] [facility] Start: 06-14-2024 End: 06-14-2025 US for US OB less than 14 weeks early Imaging Routine Threatened Expected: 06/14/2024, Expires: 06/14/2025 [facility] Work Phone: Comment on above: Expected: 06/14/2024 , Expires: 06/14/2025 Start: 12-25-2023 COVID-19 Vaccine ( season) COVID-19 Vaccine ( season) [facility] Start: 12-25-2023 Influenza vaccination Influenza Vacc ine (#1) [facility] Start: 07-16-2023 [facility] Start: 2022 COVID-19 (2022- 4 season) COVID-19 (2022- season) [facility] Start: 2022 FLU (#1) FLU (#1) [facility] Start: 2022 Hearing Screening Hearing Screening [facility] Start: 2022 Hepatitis C screening Hepatitis C Sc reening [facility] Start: 07-14-2022 Well Visit Well Visit [facility] Start: 01-14-2022 Meningococcal B Vacc ine (2 of 2 - Bexsero SCDM 2-dose series) Meningococcal B Vaccine (2 of 2 - Bexsero SCDM 2-dose series) [facility] Start: 08-11-2021 MenB (2 of 2 - MenB 2-Dose Series Bexsero) MenB (2 of 2 - MenB 2-Dose Series Bexsero) [facility] Start: 12-25-2019 Vision Screening Vision Screening [facility] Start: 2016 Depression Screening Depression Scre ening [facility] Start: 08-23-2005 Application of denta l fluoride varnish Fluoride Varnish [facility] Start: 2004 HIV screening HIV Screening [facility] End: 05-27-2024 Bacteria identified in Urine by Culture [facility] Work Phone: Comment on above: STAT (Lab) for 1 Occ urrences starting 05/27/2024 until 05/27/2024 Once for 1 Occurrenc es starting 05/27/2024 until 05/27/2024 End: 06-15-2024 Bacteria identified in Urine by Culture [facility] Work Phone: Comment on above: Once (Lab) for 1 Occ urrences starting 06/15/2024 until 06/15/2024 Once for 1 Occurrenc es starting 06/15/2024 until 06/15/2024 Bacteria identified in Urine by Culture Urine culture (clean catch) Microbiology Routine Recurrent UTI (urinary tract infection) complicating , first trimester 06/25/2024 3:33 PM [facility] Work Phone: Bacteria identified in Urine by Culture Urine culture Microbiology Routine Recurrent UTI (urinary tract infection) complicating , first trimester 06/29/2024 1:54 PM [facility] Work Phone: Bacteria identified in Urine by Culture Urine culture Microbiology Routine Dysuria 08/10/2024 2:53 PM EDT [facility] Bacteria identified in Urine by Culture Urine culture Microbiology Routine care, first in second trimester Recurrent UTI (urinary tract infection) complicating , first trimester 09/12/2024 11:09 AM EDT [facility] End: 11-23-2024 Bacteria identified in Urine by Culture [facility] Work Phone: Comment on above: Once (Lab) for 1 Occ urrences starting 11/23/2024 until 11/23/2024 ECG 12 lead ECG 12 lead CV E CG STAT 08/06/2024 12:55 PM EDT [facility] Hemoglobinopathy evaluation Hemoglobinopathy evaluation Lab Routine Amenorrhea 06/29/2024 1:54 PM EST [facility] Horizon 14 (Morel-Ethn ic Standard) Horizon 14 (Morel-Ethnic Standard) Lab Routine Encounter for supervision in primigravida, antepartum 07/17/2024 9:03 AM EDT [facility] Work Phone: PANORAMA TEST PANORAMA TEST Lab Routine Encounter for supervision in primigravida, antepartum 07/17/2024 9:03 AM EDT [facility] Patient Education [facility] Work Phone: Patient referral [facility] Work Phone: End: 08-06-2024 POCT Ketone, urine manually resulted [facility] System Work Phone: Comment on above: Once (Lab) for 1 Occ urrences starting 08/06/2024 until 08/06/2024 End: 07-22-2023 Stool Enteric culture (Lab Collect) [facility] Work Phone: Comment on above: 1 Occurrences starti ng 07/22/2023 until 07/22/2023 End: 07-22-2023 Stool Giardia and Cryptosporidium Screen [facility] Comment on above: 1 Occurrences starti ng 07/22/2023 until 07/22/2023 End: 07-20-2023 Transglutaminase IgA [facility] Work Phone: Comment on above: 1 Occurrences starti ng 07/20/2023 until 07/20/2023 End: 05-27-2024 Urine Hold Cup Urine Hold Cup Lab Timed Once for 1 Occurrences starting 05/27/2024 until 05/27/2024 [facility] Comment on above: Once for 1 Occurrenc es starting 05/27/2024 until 05/27/2024 End: 06-15-2024 Urine Hold Cup Urine Hold Cup Lab Timed Once for 1 Occurrences starting 06/15/2024 until 06/15/2024 [facility] Comment on above: Once for 1 Occurrenc es starting 06/15/2024 until 06/15/2024 End: 06-29-[address] [facility] Work Phone: Comment on above: Once for 1 Occurrenc es starting 06/29/2024 until 06/29/2024 End: 10-30-2024 for [facility] Work Phone: Comment on above: Once for 1 Occurrenc es starting 10/30/2024 until 10/30/2024 Immunizations Immunization Date Immunization Notes Care Provider [facility] 07-14-2021 influenza, injectabl e, quadrivalent, preservative free Jeremy Vásquez MD Work Phone: [facility] 07-14-2021 meningococcal B vacc ine, recombinant, OMV, adjuvanted Jeremy Vásquez MD Work Phone: [facility] 07-14-2021 meningococcal polysaccharide (groups A, C, Y and W-135) diphtheria toxoid conjugate vaccine (MCV4P) Jeremy Vásquez MD Work Phone: [facility] 07-14-2021 influenza virus vacc ine, unspecified formulation Ovi Delacruz MD Work Phone: [facility] 04-08-2020 influenza, injectabl e, quadrivalent, preservative free Jeremy Vásquez MD Work Phone: [facility] 03-19-2019 influenza, injectabl e, quadrivalent, preservative free Jeremy Vásquez MD Work Phone: [facility] 03-09-2018 hepatitis A vaccine, pediatric/adolescent dosage, 2 dose schedule Jeremy Vásquez MD Work Phone: [facility] 03-09-2018 influenza, injectabl e, quadrivalent, preservative free Jeremy Vásquez MD Work Phone: [facility] 01-17-2017 Human Papillomavirus 9-valent vaccine Jeremy Vásquez MD Work Phone: [facility] 01-17-2017 influenza, injectabl e, quadrivalent, preservative free Jeremy Vásquez MD Work Phone: [facility] 01-13-2016 Human Papillomavirus 9-valent vaccine Jeremy Vásquez MD Work Phone: [facility] 01-13-2016 meningococcal polysaccharide (groups A, C, Y and W-135) diphtheria toxoid conjugate vaccine (MCV4P) Jeremy Vásquez MD Work Phone: [facility] 01-13-2016 tetanus toxoid, redu nadja diphtheria toxoid, and acellular pertussis vaccine, adsorbed Jeremy Vásquez MD Work Phone: [facility] 04-10-2013 influenza, injectabl e, quadrivalent, preservative free Jeremy Vásquez MD Work Phone: [facility] 01-28-2012 influenza virus vacc ine, split virus (incl. purified surface antigen) Jeremy Vásquez MD Work Phone: [facility] 09-25-2009 diphtheria, tetanus toxoids and acellular pertussis vaccine Jeremy Vásquez MD Work Phone: [facility] 09-25-2009 measles, mumps, rube lla, and varicella virus vaccine Jeremy Vásquez MD Work Phone: [facility] 09-25-2009 poliovirus vaccine, inactivated Jeremy Vásquez MD Work Phone: [facility] 03-14-2007 influenza virus vacc ine, unspecified formulation Jeremy Vásquez MD Work Phone: [facility] 09-28-2006 hepatitis A vaccine, adult dosage Jeremy Vásquez MD Work Phone: [facility] 04-15-2006 diphtheria, tetanus toxoids and acellular pertussis vaccine Jeremy Vásquez MD Work Phone: [facility] 04-15-2006 hepatitis A vaccine, adult dosage Jeremy Vásquez MD Work Phone: [facility] 04-15-2006 influenza virus vacc ine, unspecified formulation Jeremy Vásquez MD Work Phone: [facility] 04-15-2006 pneumococcal conjuga te vaccine, 7 valent Jeremy Vásquez MD Work Phone: [facility] 01-10-2006 haemophilus influenz ae type b vaccine, PRP-T conjugate Jeremy Vásquez MD Work Phone: [facility] 01-10-2006 measles, mumps and rubella virus vaccine Jeremy Vásquez MD Work Phone: [facility] 01-10-2006 varicella virus vaccine Jeremy Vásquez MD Work Phone: [facility] 09-29-2005 diphtheria, tetanus toxoids and acellular pertussis vaccine Jeremy Vásquez MD Work Phone: [facility] 09-29-2005 haemophilus influenz ae type b vaccine, PRP-T conjugate Jeremy Vásquez MD Work Phone: [facility] 09-29-2005 hepatitis B vaccine, pediatric or pediatric/adolescent dosage Jeremy Vásquez MD Work Phone: [facility] 09-29-2005 pneumococcal conjuga te vaccine, 7 valent Jeremy Vásquez MD Work Phone: [facility] 09-29-2005 poliovirus vaccine, inactivated Jeremy Vásquez MD Work Phone: [facility] 06-29-2005 diphtheria, tetanus toxoids and acellular pertussis vaccine Jeremy Vásquez MD Work Phone: [facility] 06-29-2005 haemophilus influenz ae type b vaccine, PRP-T conjugate Jeremy Vásquez MD Work Phone: [facility] 06-29-2005 hepatitis B vaccine, pediatric or pediatric/adolescent dosage Jeremy Vásquez MD Work Phone: [facility] 06-29-2005 pneumococcal conjuga te vaccine, 7 valent Jeremy Vásquez MD Work Phone: [facility] 06-29-2005 poliovirus vaccine, inactivated eJremy Vásquez MD Work Phone: [facility] 05-16-2005 influenza virus vacc ine, unspecified formulation Jeremy Vásquez MD Work Phone: [facility] 03-08-2005 diphtheria, tetanus toxoids and acellular pertussis vaccine Jeremy Vásquez MD Work Phone: [facility] 03-08-2005 haemophilus influenz ae type b vaccine, PRP-T conjugate Jeremy Vásquez MD Work Phone: [facility] 03-08-2005 hepatitis B vaccine, pediatric or pediatric/adolescent dosage Jeremy Vásquez MD Work Phone: [facility] 03-08-2005 pneumococcal conjuga te vaccine, 7 valent Jeremy Vásquez MD Work Phone: [facility] 03-08-2005 poliovirus vaccine, inactivated Jeremy Vásquez MD Work Phone: [facility] 2004 hepatitis B vaccine, pediatric or pediatric/adolescent dosage Jeremy Vásquez MD Work Phone: [facility] Payers Date Payer Category Payer Medicaid [id number] 2024 Self-pay [id number] 2022 Medicaid HMO [id number] 2022 Unknown [id number] 2021 Unknown LASHONDA WILLIAMSON [facility] [id number] 2021-Present [address] [place] [address] [id number] 2004 Unknown [id number] 2004 Unknown [id number] 2004 Unknown [id number] 2004 Unknown [id number] 1979 Unknown [id number] 1979 Unknown [id number] Unknown LASHONDA [id number] Unknown [id number] Unknown [id number] Unknown [id number] Social History Date Type Detail Facility Start: 01-14-2022 End: 07-16-2023 Tobacco smoking status PRIS Unknown if ever smoked [facility] Start: 2004 Sex Assigned At Female [facility] Start: 04-06-2022 End: 07-19-2024 Tobacco smoking status NHIS Never smoked tobacco [facility] History of tobacco use Passive smoker [facility] Start: 04-06-2022 Tobacco use and exposure User of smokeless tobacco [facility] Start: 07-20-2023 Alcoholic beverage intake Not Asked [facility] Start: 07-20-2023 End: 07-19-2024 History of Social function [facility] Start: 07-20-2023 End: 07-19-2024 Tobacco use panel [facility] Adolescent depressio n screening assessment 3 [facility] Start: 2004 Sex assigned at Not on file A [facility] Start: 05-06-2024 End: 07-19-2024 Tobacco use and exposure Smokeless tobacco non-user [facility] Start: 05-06-2024 End: 07-17-2024 Alcoholic beverage intake Lifetime non-drinker (finding) [facility] How often to you hav e a drink containing alcohol? Never [facility] Start: 05-06-2024 Sex Female (finding) [facility] Has the [employer], oil, or water company threatened to shut off services in your home in past 12Mo No [facility] (I/We) worried whestefani er (my/our) food would run out before (I/we) got money to buy more. Never true [facility] Start: 08-06-2024 End: 11-23-2024 Alcoholic beverage intake Ex-drinker (finding) [facility] Are you now , , , , never or living with a partner? Never [facility] How hard is it for y ou to pay for the very basics like food, housing, medical care, and heating Not very hard [facility] Do you feel stress - tense, restless, nervous, or anxious, or unable to sleep at night because your mind is troubled all the time - these days [OSQ] To some extent [facility] Start: 07-19-2024 Alcohol Comment socially befor e [facility] Start: 05-23-2024 [facility] Start: 09-26-2024 Tobacco smoking stat NHIS Ex-smoker (finding) [facility] NEGATED: Highlighted row [facility] Work Phone: NEGATED: Highlighted row [facility] Goals Date Patient Goal Desired Activity /State Personal health goal Functional Status Date Assessment Result Facility 09-04-2024 Total score [AUDIT-C] 0 09/05/19 25 1:36 PM EDT Ami Palacios RN [facility] Mental Status Date Assessment Result Facility 09-26-2024 Cognitive function Level Of Cons ciousness Awake;Alert;Appropriate;Follow s Commands [facility] Work Phone: 07-16-2023 Cognitive function Level Of Cons ciousness Awake;Alert;Appropriate;Follow s Commands [facility] Work Phone: 12-08-2022 Cognitive function Level Of Cons ciousness Awake;Alert;Appropriate;Follow s Commands [facility] Work Phone: Clinical Notes 04-29-2023 to 11-23-2024 Discharge InstructionsAurea Rodriguez DO - 11/23/2024 6:44 PM EDTTelephone Encounter - Pepper Abdul RN - 11/23/2024 12:50 PM EDTTelephone Encounter - Pepper Abdul RN - 11/23/2024 12:50 PM EDT Note Date & Type Note Facility 11-23-2024 Hospital Discharg e instructions Aurea Rodriguez DO - 11/23/2024 8:01 PM EDT Follow up appointment with your doctor/district ranger - Keep next scheduled appointment Activity - Normal Activity Call your doctor/district ranger if you have: - leaking fluid - [...] and Delivery for a related visit on 11/23/24 . Aurea Rodriguez DO [facility] documented in this encounter [facility] 11-23-2024 History of Presen t illness Narrative Department of Obstetrics and Gynecology OB Emergency Department Note CHIEF CONCERN: cramping HISTORY OF PRESENT ILLNESS: The patient is a 18 y.o. at 28w2d who presents with the above chief concern. Presenting for cramping that started 3 days ago. She was seen at [place] [facility] last night where they gave her tylenol and checked her cervix. She reports that she was about 0.5cm dilated. She states today that the pain has not gone away. She has noticed increased watery vaginal discharge but denies any large gushes of fluid. She denies DFM/VB Estimated Due Date: Estimated Date of Delivery: 02/13/25 CARE: Complicated by: anemia, Hx Anorexia, Circumvallate Placenta DETAILED OB HISTORY: OB History Para Term AB Living 1 0 SAB IAB Ectopic Multiple Live Births # Outcome Date GA Lbr Morales/2nd Weight Sex Type Anes PTL Lv 1 Current Obstetric Comments Plans to breastfeed PAST MEDICAL HISTORY: Medical History[1] PAST SURGICAL HISTORY: Surgical History[2] MEDICATIONS: Prior to Admission medications Medication Sig Start Date End Date Taking? Authorizing Provider ferrous sulfate 325 (65 Fe) MG tablet Take 1 tablet (325 mg) by mouth every other day. 11/09/24 01/08/25 Yes Aurea Rodriguez DO 27-1 MG tablet Take 1 tablet by mouth daily. 06/16/24 Yes Katia Soliman DO albuterol 108 (90 Base) MCG/ACT inhaler Inhale 2 puffs every 4 hours as needed for wheezing. Patient not taking: Reported on 07/19/2024 05/27/24 06/26/24 Mikal Woodson MD doxylamine (Unisom) 25 MG tablet Take 1 tablet (25 mg) by mouth Nightly as needed for sleep. Patient not taking: Reported on 11/23/2024 08/10/24 12/08/24 Ki Breen, Nerve Stimulator (Standard TENS) device 1 Units as needed (hip pain). 10/10/24 Modesto Cates DO Nerve Stimulator (TENS Therapy Replace Back Pads) misc 2 Units as needed (hip pain). 10/10/24 Modesto Cates, DO nicotine (Nicoderm, Step 3) 7 MG/24HR patch Place 1 patch on the skin Every 24 hours. 06/29/24 10/27/24 Gloria Ohara MD REVIEW OF SYSTEMS: Pertinent items are noted in HPI. PHYSICAL EXAM: Vital Signs: VS wnl-reviewed/Respirations normal effort Vitals: 11/23/24 1831 11/23/24 1834 11/23/24 1835 11/23/24 1836 BP: 96/58 Pulse: 80 80 Resp: 16 Temp: 36.6 C (97.9 F) TempSrc: Oral Weight: 116 lb (52.6 kg) Height: 5' 5 (1.651 m) General: NAD alert and oriented Heart: RR Lungs: No resp distress Abdomen: soft, NT, ND, no rebound/guarding Uterus: gravid/non-tender Speculum Exam: no pooling of fluid seen, Nitrizine test is negative, Ferning test is negative, vaginal discharge thick and white in appearance Membranes: Intact Cervix: closed, posterior, thick, firm LE Edema: trace RESULTS: heart rate: Category I Contraction frequency: irregular GENERAL LABS: Recent Results (from the past 24 hours) POCT nitrazine paper test manually resulted Collection Time: 11/23/24 7:01 PM Result Value Ref Range Nitrazine Paper Test POC Negative (pH <= 6.5) POC Nitrazine Lot Number [id number] POCT Fern Test Collection Time: 11/23/24 7:03 PM Result Value Ref Range FERN PATTERN Fern pattern absent Complete Urinalysis with reflex to Culture Collection Time: 11/23/24 7:30 PM Result Value Ref Range Color, Urine Yellow Lt. Yellow Clarity, Urine Turbid (A) Clear pH, Urine 6.5 5.0 - 8.0 pH Leukocytes, Urine 500 (A) Negative Herrera/uL Nitrite, Urine Negative Negative Protein, Urine 30 (A) Negative mg/dL Glucose, Urine Normal Normal (<70) mg/dL Bilirubin, Urine Negative Negative mg/dL Ketones, Urine Negative Negative mg/dL Urobilinogen, Urine Normal Normal (0-1) mg/dL Blood, Urine Negative Negative mg/dL RBC, Urine 3-5 (A) 0 - 2 /HPF WBC, Urine 11-25 (A) 0 - 5 /HPF Squamous Epithelial, Urine 26-50 (A) 3 - 5 /HPF Bacteria, Urine Few (A) Negative /HPF Mucus, Urine Few Negative /LPF Hyaline Casts, Urine Negative Negative /LPF SPECIFIC GRAVITY OF URINE (NUMERIC) 1.026 1.005 - 1.030 TRIAGE COURSE: Presenting to triage for abdominal cramping. Overall comfortable appearing on bedside exam. Abdomen soft to palpation. Vertex on bedside ultrasound. Speculum exam overall unremarkable some thick vaginal discharge noted, vaginitis panel collected. UA showing concern for urinary tract infection. Urine culture sent. Cervix closed on digital exam. Tylenol Flexeril and lidocaine patch given. Patient feeling much better at this time after receiving these medications. Will discharge home with Keflex for concern for UTI. Will follow-up via MyChart if vaginitis panel results are positive. Periods of broken tracing due to maternal and movement. Very sporadic contractions noted, nothing consistent. Will obtain 20 minutes of a continuous strip. Will also discharge patient home with Tylenol lidocaine patches and a few days worth of Flexeril for any continued pain. Cat I and reactive. Stable for discharge. ESSION: UTI Patient seen and evaluated and plan discussed with in house Triage Attending Dr. Neal BLASTING WORKER PROVIDER: Bill Chao DISPOSITION: Discharge to Home [1] History reviewed. No pertinent past medical history. [2] History reviewed. No pertinent surgical history. Cosigned by Lynda Neal MD at 11/23/2024 9:18 PM EDT Associated attestation - Lynda Neal MD - 11/23/2024 9:18 PM EDT Hospital Care (Independent): I independently saw and evaluated the patient in the [facility]. I agree with the findings and plan of care as documented in the resident's note. Follow up as scheduled. Lynda Neal MD documented in this encounter [facility] 11-23-2024 Telephone encounter Note See previous TE S: Patient spoke with [facility] nurse regarding abdominal cramping B: Onset of symptoms/concern 11/23/24 A: States they are 28w2d EGA. States was seen at [facility] OB department yesterday for abdominal cramping. States they were told they are 1/2 centimeter dilated. Released to home. States today has ongoing intermittent abdominal cramping that is severe, causing nausea, and has had mucous like discharge. Denies vaginal bleeding, denies fluids from vagina, denies syncope, denies vomiting. R: Patient advised to go to [facility]. Patient states aware of location. Patient understands care advice and will go to [facility]. No further needs at this time. Patient instructed to call back with new or worsening symptoms. Reason for Disposition MODERATE-SEVERE abdominal pain (e.g., interferes with normal activities, awakens from sleep) Protocols used: - Abdominal Pain Greater Than 20 Weeks [id number] [facility] truedash 11-23-2024 Miscellaneous Notes See previous TE S: Patient spoke with [facility] nurse regarding abdominal cramping B: Onset of symptoms/concern 11/23/24 A: States they are 28w2d EGA. States was seen at [facility] OB department yesterday for abdominal cramping. States they were told they are 1/2 centimeter dilated. Released to home. States today has ongoing intermittent abdominal cramping that is severe, causing nausea, and has had mucous like discharge. Denies vaginal bleeding, denies fluids from vagina, denies syncope, denies vomiting. R: Patient advised to go to [facility]. Patient states aware of location. Patient understands care advice and will go to [facility]. No further needs at this time. Patient instructed to call back with new or worsening symptoms. Reason for Disposition MODERATE-SEVERE abdominal pain (e.g., interferes with normal activities, awakens from sleep) Protocols used: - Abdominal Pain Greater Than 20 Weeks [id number] S: [facility] with complaints of abdominal pain during . B: Symptoms began one day prior to call. Patient is 28W1D . A: Patient reporting 9/10 abdominal cramping pain, nausea, subjective fever, intermittent headaches, 5/10 urinary pain, and contractions. Pain is severe, and patient is lying on the floor at work during triage in an attempt to find relief. Patient reports contractions are fairly rare, estimates about one an hour. Patient states she used antacids, which provided relief yesterday, but not today. Denies reduced activity, vomiting, fever, vaginal bleeding, or vaginal discharge. R: Patient instructed to L&D for evaluation. Patient verbalizes understanding. Reason for Disposition MODERATE-SEVERE abdominal pain (e.g., interferes with normal activities, awakens from sleep) Protocols used: - Abdominal Pain Greater Than 20 Weeks [id number] documented in this encounter [facility] 11-22-2024 Telephone encounter Note S: [facility] with complaints of abdominal pain during . B: Symptoms began one day prior to call. Patient is 28W1D . A: Patient reporting 9/10 abdominal cramping pain, nausea, subjective fever, intermittent headaches, 5/10 urinary pain, and contractions. Pain is severe, and patient is lying on the floor at work during triage in an attempt to find relief. Patient reports contractions are fairly rare, estimates about one an hour. Patient states she used antacids, which provided relief yesterday, but not today. Denies reduced activity, vomiting, fever, vaginal bleeding, or vaginal discharge. R: Patient instructed to L&D for evaluation. Patient verbalizes understanding. Reason for Disposition MODERATE-SEVERE abdominal pain (e.g., interferes with normal activities, awakens from sleep) Protocols used: - Abdominal Pain Greater Than 20 Weeks [id number] [facility] 11-08-2024 Evaluation + Plan note Associated Problem(s): Iron deficiency anemia Cbc today [facility] 11-08-2024 Miscellaneous Notes Associated Problem(s): Iron deficiency [...] work Plan to get tens unit from [employer] [facility] at this time FHR 130 FH 26 10/30 US reviewed with patient, Est. FW: 899 gm 2 lb 66 % AC 86% Continue PNV RTO 4 wks documented in this encounter [facility] 11-08-2024 History of Presen t illness Narrative A smoking pipe coater was offered to be present during her exam. The patient: DECLINED Pt had blood drawn from her left arm. Pt tolerated well. (Bright and purple tubes) documented in this encounter [facility] 11-08-2024 Instructions Modesto Cates DO - 11/08/2024 [...] in your urine. documented in this encounter [facility] 11-07-2024 Evaluation + Plan note Associated Problem(s): Hx of anorexia nervosa Patient has been doing Okay with diet Reassurance provided Weight today ___ [facility] 11-07-2024 Evaluation + Plan note Associated Problem(s): Circumvallate placenta in second trimester 10/30 US: Est. FW: 899 gm 2 lb 66 % AC 86% [facility] 11-07-2024 Evaluation + Plan note Associated Problem(s): , supervision of first Doing well with no OB complaints Will get Gtt done today Right SI pain is better but now having upper back pain due to excessive strain at work Plan to get tens unit from [employer] [facility] at this time FHR 130 FH 26 /8 US reviewed with patient, Est. FW: 899 gm 2 lb 66 % AC 86% Continue PNV RTO 4 wks [facility] 10-30-2024 History of Presen t illness Narrative Patient presents for obstetrical ultrasound 24w6d for Nurse visit [facility] denies Headache Right upper quadrant pain Vision changes Chest pain Shortness of breath Vaginal bleeding Leaking of fluid Contractions LMP 05/09/2024 18 y.o. with no concerns today [facility] was instructed to keep her scheduled visit documented in this encounter [facility] 10-10-2024 Evaluation + Plan note Associated Problem(s): Hx of anorexia nervosa Discussed healthy eating in No longer in that toxic relationship [facility] 10-10-2024 Miscellaneous Notes Associated Problem(s): Hx of anorexia nervosa Discussed healthy eating in No longer in that toxic relationship Associated Problem(s): Circumvallate placenta in second trimester Discussed with patient what circumvallate placenta is Associated Problem(s): , supervision of first Doing well no Ob complaints Right SI pain and tenderness on palpation Discussed physiology and conservative measures Recommended Tylenol and home care and home health aides teacher Tens unit sent to pharmacy, patient to order on [employer] if not covered by insurance and too expensive Continue PNV Discussed healthy diet documented in this encounter [facility] 10-10-2024 Evaluation + Plan note Associated Problem(s): Circumvallate placenta in second trimester Discussed with patient what circumvallate placenta is [facility] 10-10-2024 Evaluation + Plan note Associated Problem(s): , supervision of first Doing well no Ob complaints Right SI pain and tenderness on palpation Discussed physiology and conservative measures Recommended Tylenol and home care and home health aides teacher Tens unit sent to pharmacy, patient to order on [employer] if not covered by insurance and too expensive Continue PNV Discussed healthy diet [facility] 10-10-2024 History of Presen t illness Narrative Shipping And Receiving Coordinator- declined Images from the original note were not included. Assessment and Plan: , supervision of first Doing well no Ob complaints Right SI pain and tenderness on palpation Discussed physiology and conservative measures Recommended Tylenol and home care and home health aides teacher Tens unit sent to pharmacy, patient to [...] Neal MD - 10/10/2024 1:15 PM EDT [facility]: This patient was seen in the [facility] by the resident. I reviewed and agree with the care provided by the resident during or immediately following the visit including the patient's medical history, the resident's finding in the physical exam, patient's diagnosis and treatment plan. documented in this encounter [facility] 10-10-2024 Instructions Modesto Cates DO - 10/10/2024 [...] in your urine. documented in this encounter [facility] 09-12-2024 History of Presen t illness Narrative [...] Neal MD - 09/12/2024 11:23 AM EDT [facility]: [facility] by [facility]. I reviewed and agree with the care provided by the resident during or immediately following the visit including the patient's medical history, the resident's finding in the physical exam, patient's diagnosis and treatment plan. Shipping And Receiving Coordinator- declined Pt had a bout with kidney stones recently and is asking about short term disability per her job. documented in this encounter [facility] 09-12-2024 Instructions Aurea MelendezDO danielito - 09/12/2024 10:00 AM EDT Your Second [...] in your urine. documented in this encounter [facility] 09-10-2024 Evaluation + Plan note Associated Problem(s): Recurrent UTI (urinary tract infection) complicating , first trimester Negative urine culture 09/04 Repeat UA and culture today as she feels like she might be having some UTI symptoms and also reports history of kidney stones [facility] 09-10-2024 Evaluation + Plan note Associated Problem(s): Iron deficiency anemia rCBC ordered for 24wk [facility] 09-10-2024 Miscellaneous Notes Associated Problem(s): Recurrent UTI [...] continued cessation encouraged documented in this encounter [facility] 09-10-2024 Evaluation + Plan note Associated Problem(s): , supervision of first Doing well, No OB complaints BP normotensive FHR: 150s Anatomy US today, read pending Reviewed triage precautions GTT and rCBC ordered for 24wk [facility] 09-10-2024 Evaluation + Plan note Associated Problem(s): Vaping nicotine dependence, tobacco product Patient states she is not using any type of nicotine product at this time she has slowly stopped using the patches continued cessation encouraged [facility] 09-05-2024 Emergency department Note Discharge instructions reviewed with pt and she had no further questions. Pt walked out with a steady gait observed and no distress noted. [facility] 09-05-2024 Emergency department Note Discharge instructions reviewed with pt and she had no further questions. Pt walked out with a steady gait observed and no distress noted. Patient and significant other exited [facility] ED for an ED to ED transfer to [facility] so that patient can get the ordered ultrasound. Patient IV in place upon leaving [facility] as per provider permission. Patient verbalized understanding [...] Response: Oriented Best Motor Response: Follows commands [place] Coma Scale Score: 15 Medical decision making [...] Prior medical records were reviewed: Ordered by ENTERER IUP [NM] 1342 Urine culture (08/11/24 1125) [...] Calcium oxalate calculus DISPOSITION/PLAN DISPOSITION Transfer To [facility] Ed 09/04/2024 06:41:20 PM To [facility] emergency department for renal retroperitoneal ultrasound [...] MD (electronically signed) Ovi Delacruz MD 09/04/24 4718 [1] Patient Active Problem List Diagnosis Recurrent [...] reports having diarrhea. documented in this encounter [facility] 09-05-2024 Hospital Discharg e instructions Sanchez Dickey MD - 09/05/2024 3:21 AM EDT You were diagnosed with a kidney stone, please take tylenol as needed for pain. You will also be sent home with a referral to Urology, please call and make an appointment. 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 You were also diagnosed with nicki vaginitis, a yeast infection, please use antifungal cream and apply as prescribed. Please follow up with your PCP and your OBGYN within the next 1 week. If Symptoms worsen, please return to ER. The following attachments cannot be sent through Care Everywhere.Kidney Stone, Adult ED (Central African)documented in this encounter [facility] 09-04-2024 Emergency department Note Patient and significant other exited [facility] ED for an ED to ED transfer to [facility] so that patient can get the ordered ultrasound. Patient IV in place upon leaving [facility] as per provider permission. Patient verbalized understanding of instructions and departed without incident. [facility] 09-04-2024 Emergency department Note Report called to Charge nurse Yin RN for ED to ED transfer. Pt traveling by private car. [facility] 09-04-2024 Emergency department Note heart tones assessed 153 bpm. [facility] 09-04-2024 Emergency department Triage note Pt ambulatory [...] denies any dysuria. Pt reports having diarrhea. [facility] 09-04-2024 Physician Emergency department Note EMERGENCY DEPARTMENT [...] Response: Oriented Best Motor Response: Follows commands [place]se[place] Coma Scale Score: 15 Medical decision making [...] in time range) ED Course as of 09/05/24313e September 04, 2024 1341 US OB less than 14 weeks early (06/29/24 1232) Prior medical records were reviewed: Ordered by ENTERER IUP [NM] 1342 Urine culture (08/11/24 1125) [...] Calcium oxalate calculus DISPOSITION/PLAN DISPOSITION Transfer To [facility] Ed 09/04/2024 06:41:20 PM To [facility] emergency department for renal retroperitoneal ultrasound [...] Currently Comment: socially before Drug use: Never [facility] 08-10-2024 Evaluation + Plan note Associated Problem(s): Iron deficiency anemia Hgb 11.0 on NOB labs, plan to repeat around 24 weeks. [facility] 08-10-2024 Miscellaneous Notes Associated Problem(s): Iron deficiency [...] Anatomy scan ordered and message sent to nut grinder. Having a boy. Complaining of dysuria today, she had a E coli UTI in May which was treated with Macrobid. Urine culture sent today. Would like work restrictions as she works at [employer]. Letter in chart. documented in this encounter [facility] 08-10-2024 Evaluation + Plan note Associated Problem(s): , supervision of first Patient doing well, having some mild nausea but does not want any stronger medications. She had a dating US but has not gotten NT, will not be able to get her in by 14 weeks. Anatomy scan ordered and message sent to nut grinder. Having a boy. Complaining of dysuria today, she had a E coli UTI in May which was treated with Macrobid. Urine culture sent today. Would like work restrictions as she works at [employer]. Letter in chart. [facility] 08-10-2024 History of Presen t illness Narrative Assessment and Plan: , supervision of first Patient doing well, having some mild nausea but does not want any stronger medications. She had a dating US but has not gotten NT, will not be able to get her in by 14 weeks. Anatomy scan ordered and message sent to nut grinder. Having a boy. Complaining of dysuria today, she had a E coli UTI in May which was treated with Macrobid. Urine culture sent today. Would like work restrictions as she works at [employer]. Letter in chart. Iron deficiency anemia Hgb [...] Ferrara MD - 08/10/2024 3:44 PM EDT [facility]: This patient was seen in the [facility] by the resident. I reviewed and agree with the care provided by the resident during or immediately following the visit including the patient's medical history, the resident's finding in the physical exam, patient's diagnosis and treatment plan. Sumit Green was seen in the Obstetrics ED. Please see chart note for details. documented in this encounter [facility] 08-10-2024 Instructions Ki Breen DO - 08/10/2024 [...] in your urine. documented in this encounter [facility] 08-06-2024 Nurse Note Patient educated on return precautions and discharged home at this time. Pt denies questions [facility] 08-06-2024 Nurse Note Patient educated on return precautions and discharged home at this time. Pt denies questions documented in this encounter [facility] 08-06-2024 Hospital Discharg e instructions Petra Machuca DO - 08/06/2024 1:20 PM EDT Follow up appointment with your doctor/district ranger - Keep next scheduled appointment Activity - Normal Activity Call your doctor/district ranger if you have: - leaking fluid - [...] visit on 08/06/24 . PETRA MACHUCA DO [facility] documented in this encounter [facility] 08-06-2024 History of Presen t illness Narrative [...] with in house Triage Attending Dr. Coughlin BLASTING WORKER PROVIDER: Dr. Machuca DISPOSITION: Discharge to Home [...] next 2-3 days. documented in this encounter [facility] 08-06-2024 Note Attempted to call efrain swanson to discuss her syncopal episodes and recommend evaluation in OB Triage. She did not respond, returned message on [employer]. Reached out to [facility] to get patient scheduled for MOHIT early this week. [facility] 08-06-2024 Telephone encounter Note Attempted to call patient to discuss her syncopal episodes and recommend evaluation in OB Triage. She did not respond, returned message on [employer]otal[employer]art. Reached out to [facility] to get patient scheduled for MOHIT early this week. [facility] 08-06-2024 Miscellaneous Notes Attempted to call patient to discuss her syncopal episodes and recommend evaluation in OB Triage. She did not respond, returned message on [employer]. Reached out to [facility] to get patient scheduled for MOHIT early this week. documented in this encounter [facility] 07-17-2024 Evaluation + Plan note Associated Problem(s): Vaping nicotine dependence, tobacco product Continue use of nicotine patches Counseling provided and cessation encouraged [facility] 07-17-2024 Note Continue use of иван elvia patches Counseling provided and cessation encouraged [facility] 07-17-2024 Miscellaneous Notes Associated Problem(s): Vaping nicotine dependence, tobacco product Continue use of nicotine patches Counseling provided and cessation encouraged Associated Problem(s): , supervision of first Patient doing well, denies OB sx Reviewed TVUS and NOB labs NIPT and Horizon ordered today Continue routine OB care Discussed return precautions documented in this encounter [facility] 07-17-2024 Evaluation + Plan note Associated Problem(s): , supervision of first Patient doing well, denies OB sx Reviewed TVUS and NOB labs NIPT and Horizon ordered today Continue routine OB care Discussed return precautions [facility] 07-17-2024 History of Presen t illness Narrative [...] No Drug Use: No 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 by the resident. I reviewed and agree with the care provided by the resident during or immediately following the visit including the patient's medical history, the resident's finding in the physical exam, patient's diagnosis and treatment plan. Pt had Joselyn drawn from the right arm. Pt tolerated well. documented in this encounter [facility] 07-17-2024 Instructions Kaitlin Aiken DO - 07/17/2024 [...] down or quit! Ask your doctor or district ranger about ways to quit. [place] with morning sickness Sip small amounts of [...] it easier to eat Bananas Rice Applesauce Elma Try nausea wristbands. These help some women [...] use during . documented in this encounter [facility] 06-29-2024 History of Presen t illness Narrative [...] She was recently seen on 06/25 in [facility] and endorses continued dysuria with a Ucx positive for 50-99329 CFU of E coli and per patient [...] daily, trying to cut back. Works in [employer] and has been given appropriate accomodation for lifiting OB History Para Term AB Living 1 SAB IAB Ectopic Multiple Live Births # Outcome Date GA Lbr Morales/2nd Weight Sex Type Anes PTL Lv 1 Current No past medical history on file. [employer] FINANCE SALES REP is required. Please contact your construction administrator to configure this SmartLink. No family [...] Ferrara MD - 06/29/2024 2:14 PM EST [facility]: [facility] by the resident. I reviewed and agree with the care provided by the resident during or immediately following the visit including the patient's medical history, the resident's finding in the physical exam, patient's diagnosis and treatment plan. VITALS- BP-100/68 HR-76 TEMP-98.2 F WEIGHT-105 LBS A smoking pipe coater was offered to be present during her exam. The patient: DECLINED documented in this encounter [facility] 06-29-2024 Instructions Gloria Ohara MD - 06/29/2024 [...] use during . documented in this encounter [facility] 06-26-2024 History of Presen t illness Narrative Based on Urine Culture Results showing growth of 50-90K E. Coli, will send in prescription for PO Macrobid 100 mg BID as this is the most safe in related UTI's. documented in this encounter [facility] 06-26-2024 Evaluation + Plan note Associated Problem(s): [...] Bacteria will decide on best treatment course [facility] 06-26-2024 Miscellaneous Notes Associated Problem(s): Recurrent UTI [...] best treatment course documented in this encounter [facility] 06-26-2024 Miscellaneous Notes Associated Problem(s): Recurrent UTI [...] best treatment course documented in this encounter [facility] 06-25-2024 History of Presen t illness Narrative [...] from the original note were not included. [facility] - [address] [facility] [address] Dept: [phone] Dept Loc: [phone] 06/25/2024 Visit type: inpatient follow up Reason [...] significant past medical history that presented to [facility] ED on 06/14/2024 with lightheadedness and nausea/vomiting [...] stable condition. Patient comes in to the [facility] today for regularly scheduled hospital follow up. [...] : 3 06/26/2024 documented in this encounter [facility] 06-25-2024 History of Presen t illness Narrative [...] so I don't want one) [x] other JOCELYNE time with patient 5 minutes TH Images from the original note were not included. [facility] - [address] [facility] [address] Dept: [phone] Dept Loc: [phone] 06/25/2024 Visit type: inpatient follow up Reason [...] significant past medical history that presented to [facility] ED on 06/14/2024 with lightheadedness and nausea/vomiting [...] stable condition. Patient comes in to the [facility] today for regularly scheduled hospital follow up. [...] the direction of a teaching physician (EUGENIO Modifier). Additional comments: Overall feels improved. She has noticed mild burning with urination mainly in evening for last few days so urine will be rechecked. Liza Whitman MD documented in this encounter [facility] 06-18-2024 Note Hospital discharge t o home noted. Please see separate patient outreach encounter. [facility] 06-16-2024 Note Internal Medicine: M ed [...] significant past medical history that presented to [facility] ED on 06/14/2024 with lightheadedness and nausea/vomiting [...] Your Medications These medications were sent to [facility] - [place], [place] - [address] [place] [id number] amoxicillin-clavulanate 875-125 MG tablet ferrous sulfate 325 (65 Fe) MG tablet 27-1 MG tablet prochlorperazine 5 MG tablet Notable Medication Changes & Reasoning: - Start vitamins - Start iron supplement - Oral antibiotics with Agumentin BID x 7 days - Compazine prn for nausea Consultants ENTERER Procedures Performed None Significant Laboratory/Radiographic Data: UA [...] CENT 06/29/2024 12:30 PM [facility] MFM 2 [facility] 75 ARCH MFM 06/29/2024 1:30 PM Gloria Ohara MD [facility] W[facility] None Items to Address at Followup Visit: - Ensure finish Augmentin 7 day course - establish care appt with [facility] afterwards - reassess yeast infection and prescribe terazol if needed - reassess UTI symptoms resolution - follow up on iron deficiency anemia Patient seen & examined on day of discharge. Please refer to note dated on the day of discharge (06/16/2024) for associated attestation, exam, and plan. My personal highlights or additions below noted in Green. [facility] 06-16-2024 Hospital course Narrative Internal Medicine: [...] significant past medical history that presented to [facility] ED on 06/14/2024 with lightheadedness and nausea/vomiting [...] Your Medications These medications were sent to [facility] - [place], [place] - [address] [place] [id number] amoxicillin-clavulanate 875-125 MG tablet ferrous sulfate 325 (65 Fe) MG tablet 27-1 MG tablet prochlorperazine 5 MG tablet Notable Medication Changes & Reasoning: - Start vitamins - Start iron supplement - Oral antibiotics with Agumentin BID x 7 days - Compazine prn for nausea Consultants ENTERER Procedures Performed None Significant Laboratory/Radiographic Data: UA [...] Vick Cortez MD [facility] 06/29/2024 12:30 PM [facility] MFM RM 2 [facility] 75 ARCH MFM 06/29/2024 1:30 PM Gloria Ohara MD SH [facility] WOM None Items to Address at [...] noted in Green. 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 Pt also asked about letter for work [...] 8.6 8.8 LFTs: Recent Labs 06/14/2413506/15/24 0532 06/16/246 AST -- 21 17 ALT -- PROT [...] 14.4 ABGs: No results for input(s): PHART, GOC2PQB, PO2ART, BEB0QDV, SO2ART, A9ZBOUGO in the last 72 hours. Lactic Acid: [...] - Procalcitonin 0.03, (more content not included)... 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 Pt also asked about letter for work [...] BMP: Recent Labs 06/14/24 0136 06/15/24 0532 06/16/24 0007 NA 135* 136 135* K 4.0 3.7 4.0 CL 106 110* 110* CO2 22 19* 18* BUN 10 9 10 CREATININE 0.73 0.72 0.63 CALCIUM 8.8 8.6 8.8 LFTs: Recent Labs 06/14/246 06/15/24 0532 06/16/24 0007 AST -- ALT -- PROT -- 6.4 6.5 ALBUMIN -- 3.6 3.8 BILITOT -- 0.3 0.4 BILIRUBINU Negative -- -- ALKPHOS -- 51 53 Glucose: Recent Labs 06/14/246 06/15/24 0532 06/16/24 0007 GLUCOSE 110* 130* 86 Procal: Recent Labs 06/14/24135 PROCAL 0.03 CBC: Recent Labs 06/14/2413506/15/24 0532 06/16/24 0007 WBC 5.6 5.1 5.9 HGB 10.5* 10.6* 11.0* HCT 30.8* 32.2* 31.9* PLT 290 295 299 MCV 77.6 78.0 76.0* RDW 14.1 14.0 14.4 ABGs: No results for input(s): PHART, HKZ0CFU, PO2ART, HFA2KFO, SO2ART, Q6NJXFLJ in the last 72 hours. Lactic Acid: [...] of Service: 06/16/24) 7AM-5PM: contact resident on [facility] Med A (find by hovering over attending's [...] 0.72 CALCIUM 8.8 8.6 LFTs: Recent Labs 06/14/246 06/15/24 0532 AST -- 21 ALT -- 25 PROT -- 6.4 ALBUMIN -- 3.6 BILITOT -- 0.3 BILIRUBINU Negative -- ALKPHOS -- 51 Glucose: Recent Labs 06/14/246 06/15/24 0532 GLUCOSE 110* 130* Procal: Recent Labs 06/14/24 013 PROCAL 0.03 CBC: Recent Labs 06/14/2413506/15/24 0532 WBC 5.6 5.1 HGB 10.5* 10.6* HCT 30.8* 32.2* PLT 290 295 MCV 77.6 78.0 RDW 14.1 14.0 ABGs: No results for input(s): PHART, YRZ2OVC, PO2ART, MOY7CIB, SO2ART, E8DAHPLB in the last 72 hours. Lactic Acid: [...] of Service: 06/15/24) 7AM-5PM: contact resident on [facility] Med A (find by hovering over attending's name on left side of patient's chart) 5PM-7AM: contact AI3 res documented in this encounter [facility] 06-16-2024 Nurse Note Patients IV removed. This RN asked patient if another IV could be replaced. Patient refused. All risks dicussed with patient. [facility] 06-16-2024 Nurse Note Patients IV removed. This RN asked patient if another IV could be replaced. Patient refused. All risks dicussed with patient. documented in this encounter [facility] 06-15-2024 Plan of care note Problem: Pain [...] monitored and maintained or improved Outcome: Progressing [facility] 06-15-2024 Miscellaneous Notes Problem: Pain - Adult [...] improved Outcome: Progressing documented in this encounter [facility] 06-15-2024 Note Formatting of this n ote might be different from the original. Pt admitted for tx/evaluation of recurrent UTI in . OB note- 6 weeks 1 day. Pyelonephritis- urine culture pending. Vaginitis panel- nicki. IV rocephin continued. Anticipate discharge home with no needs. [facility] 06-15-2024 Note Formatting of this n ote might be different from the original. Pt admitted for tx/evaluation of recurrent UTI in . OB note- 6 weeks 1 day. Pyelonephritis- urine culture pending. Vaginitis panel- nicki. IV rocephin continued. Anticipate discharge home with no needs. [facility] 06-15-2024 Note Pt admitted for tx/e valuation of recurrent UTI in . OB note- 6 weeks 1 day. Pyelonephritis- urine culture pending. Vaginitis panel- nicki. IV rocephin continued. Anticipate discharge home with no needs. [facility] 06-15-2024 Note Med Team Progress No jose j Sumit Fryallison : 2005(18 y.o.) Date: June 15, 2024 Med Team: aJsmyn Attending: Dr. Jef Fabian Chief Complaint: UTI [...] -- ALKPHOS -- 51 Glucose: Recent Labs 06/14/246 06/15/24 0532 GLUCOSE 110* 130* Procal: Recent Labs 06/14/24135 PROCAL 0.03 CBC: Recent Labs 06/14/2413506/15/24 0532 WBC 5.6 5.1 HGB 10.5* 10.6* HCT 30.8* 32.2* PLT 290 295 MCV 77.6 78.0 RDW 14.1 14.0 ABGs: No results for input(s): PHART, AJJ4GWR, PO2ART, XVA6QJG, SO2ART, S8IRGCMD in the last 72 hours. Lactic Acid: [...] 3 days IV (more content not included)... [facility] 06-14-2024 Plan of care note Problem: [...] maintained or improved Outcome: Progressing [facility] 06-14-2024 History and physical note Internal Medicine: [...] with no significant Pmhx that presented to [facility] on 06/14/2024 from home after feeling lightheaded [...] 14.1 ABGs: No results for input(s): PHART, VTI1BDV, PO2ART, UMG5LAP, SO2ART, M6GEDTTG in the last 72 hours. Lactic Acid: [...] on oral antibiotics. 7AM-5PM: contact resident on [facility] Med A (find by hovering over attending's name on left side of patient's chart) 5PM-7AM: contact AI3 res [facility] 06-14-2024 Note Internal Medicine: M ed Team [...] with no significant Pmhx that presented to [facility] on 06/14/2024 from home after feeling lightheaded [...] 290 MCV 77. (more content not included)... [facility] 06-14-2024 History and physical note Internal [...] with no significant Pmhx that presented to [facility] on 06/14/2024 from home after feeling lightheaded [...] 14.1 ABGs: No results for input(s): PHART, ECL3NKQ, PO2ART, JZM5EQP, SO2ART, X3DFXDCN in the last 72 hours. Lactic Acid: [...] on oral antibiotics. 7AM-5PM: contact resident on [facility] Med A (find by hovering over attending's name on left side of patient's chart) 5PM-7AM: contact AI3 res documented in this encounter [facility] 06-14-2024 Consult note Formatting of th is note is different from the original. Images from the original note were not included. ENTERER Consult Patient Name: Sumit Green Patient : 2005 Room/Bed: [facility] Admission Date/Time: 06/14/2024 1:25 AM Primary Care Physician: Jeremy Vásquez HPI: Sumit Green is a 18 y.o. female presented to the [place] emergency department after having suprapubic pain for the past 3 to 4 days and new onset flank pain with syncopal episodes at work and home. Patient also having vaginal discharge that she thought was yeast infection. hCG collected with +17,000. UA was positive for moderate bacteria and abdominal exam was positive for suprapubic pain and CVA tenderness. Patient received Rocephin prior to transfer [facility] for further evaluation Patient was transferred to [facility] for transvaginal ultrasound that showed gestational sac [...] 06/14/2024 Patient Name: [facility]IT [facility]EN [facility] 2005 [id number] Exam Date/Time: 06/14/2024 05:38 Procedure: US PELVIS TRANSVAGINAL Ordering Provider: IVAN STEPHEN Reason For Exam: Pain/positive /quant [id number] EXAM TYPE: US PELVIS TRANSVAGINAL EXAM DATE [...] y.o. female Pyelonephritis - Presented to the [facility] emergency department after having suprapubic pain for [...] - Patient received Rocephin prior to transfer [facility] for further evaluation - Patient was transferred to [facility] for transvaginal ultrasound that showed gestational sac measuring approximately 13mm with estimated gestational age of 6 weeks 1 day noted a 1.8 cm subchorionic hemorrhage. - Based on clinical exam and urinalysis concern for pyelonephritis and early - Recommend patient be admitted for IV antibiotics in the setting of pyelonephritis Early Subchorionic Hemorrhage - Patient was transferred to [facility] for transvaginal ultrasound that showed gestational sac [...] Velásquez, who is agreeable. Please page the [facility] OBGYN Call RES group via Secure Chat [...] plan as documented in the resident's note. [facility] [employer] Phone: 06-14-2024 Consult note Formatting of th is note is different from the original. Images from the original note were not included. ENTERER Consult Patient Name: Sumit Green Patient : 2005 Room/Bed: Admission Date/Time: 06/14/2024 1:25 AM Primary Care Physician: Jeremy Vásquez HPI: Sumit Green is a 18 y.o. female presented to the [facility] emergency department after having suprapubic pain for the past 3 to 4 days and new onset flank pain with syncopal episodes at work and home. Patient also having vaginal discharge that she thought was yeast infection. hCG collected with +17,000. UA was positive for moderate bacteria and abdominal exam was positive for suprapubic pain and CVA tenderness. Patient received Rocephin prior to transfer [facility] for further evaluation Patient was transferred to [facility] for transvaginal ultrasound that showed gestational sac [...] 06/14/2024 Patient Name: SUMIT GREEN [facility] 2005 [id number] Exam Date/Time: 06/14/2024 05:38 Procedure: US PELVIS TRANSVAGINAL Ordering Provider: IVAN STEPHEN Reason For Exam: Pain/positive /quant [id number] EXAM TYPE: US PELVIS TRANSVAGINAL EXAM DATE [...] y.o. female Pyelonephritis - Presented to the [facility] emergency department after having suprapubic pain for [...] - Patient received Rocephin prior to transfer [facility] for further evaluation - Patient was transferred to [facility] for transvaginal ultrasound that showed gestational sac measuring approximately 13mm with estimated gestational age of 6 weeks 1 day noted a 1.8 cm subchorionic hemorrhage. - Based on clinical exam and urinalysis concern for pyelonephritis and early - Recommend patient be admitted for IV antibiotics in the setting of pyelonephritis Early Subchorionic Hemorrhage - Patient was transferred to [facility] for transvaginal ultrasound that showed gestational sac [...] Velásquez, who is agreeable. Please page the [facility] OBGYN Call RES group via Secure Chat [...] the resident's note. documented in this encounter [facility] 06-14-2024 Emergency department Note Transfer papers given to patient with instructions on how to get to [facility] ED. Patient verbalized understanding. [facility] 06-14-2024 Emergency department Note Phoned [facility] ED. Hand off report given to charge nurse. [facility] 06-14-2024 Emergency department Note Transfer papers given to patient with instructions on how to get to [facility] ED. Patient verbalized understanding. Phoned [facility] ED. Hand off report given to charge [...] Alcohol use: Never Drug use: Never SCREENINGS [place] Coma Scale Best Eye Response: Spontaneous Best [...] Culture. Procedure Abnormality Status --------- ------ Complete Urinalysis[[id number]] Abnormal Final result Please view results for [...] for pyelonephritis.. I discussed their care with Baggage Security Checker ENTERER, recommended ED to ED transfer for transvaginal [...] Pyelonephritis affecting , antepartum DISPOSITION Transfer To [facility] 06/14/2024 03:42:53 AM PATIENT REFERRED TO: [facility] EMERGENCY DEPT [address] [place] [phone] Go today DISCHARGE MEDICATIONS: Current Discharge [...] [facility] (Per Emergency Physician): Interpretation per the [...] Culture. Procedure Abnormality Status --------- ------ Complete Urinalysis[[id number]] Abnormal Final result Please view results for [...] Mini-Bag Plus (0 g IntraVENous Stopped 06/14/24 0303) CONSULTS: None PROCEDURES: Unless otherwise noted below, none Procedures Patients symptoms are consistent with sepsis, severe sepsis, or septic shock (If yes use .sepsiscoremeasure): No FINAL IMPRESSION 1. Pyelonephritis affecting , antepartum DISPOSITION Transfer To [facility] 06/14/2024 03:42:53 AM PATIENT REFERRED TO: [facility] EMERGENCY DEPT [address] [place] [phone] Go today DISCHARGE MEDICATIONS: Current Discharge [...] 06/14/2024 1:15 PM EST Emergency Department Encounter [facility] EMERGENCY DEPT Patient: [...] the emergency department as a transfer from [facility] for suspected pyelonephritis. Brief ED course/MDM: Patient evaluated here by ENTERER. Recommend admission to medicine and continued antibiotics. [...] for clarification.) Omar Dupree MD Acute Care [facility] Omar Dupree MD 06/14/24 0858 Patient arrived ambulatory to room 2 without difficulty. Patient complains of dizziness yesterday and passed out for a couple of seconds. Patient also complains of vaginal itching, swelling and pain x 3 days. documented in this encounter [facility] 06-14-2024 Emergency department Triage note Patient arrived ambulatory to room 2 without difficulty. Patient complains of dizziness yesterday and passed out for a couple of seconds. Patient also complains of vaginal itching, swelling and pain x 3 days. [facility] 06-14-2024 Physician Emergency department Note EMERGENCY DEPARTMENT [...] Culture. Procedure Abnormality Status --------- ------ Complete Urinalysis[[id number]] Abnormal Final result Please view results for [...] for pyelonephritis.. I discussed their care with Baggage Security Checker ENTERER, recommended ED to ED transfer for transvaginal [...] Pyelonephritis affecting , antepartum DISPOSITION Transfer To [facility] 06/14/2024 03:42:53 AM PATIENT REFERRED TO: [facility] EMERGENCY DEPT [address] [place] [phone] Go today DISCHARGE MEDICATIONS: Current Discharge [...] Medicine Provider Zahira Graham DO 06/14/24 0349 [facility] 06-14-2024 Physician Emergency department Note EMERGENCY DEPARTMENT [...] Culture. Procedure Abnormality Status --------- ------ Complete Urinalysis[[id number]] Abnormal Final result Please view results for [...] Pyelonephritis affecting , antepartum DISPOSITION Transfer To [facility] 06/14/2024 03:42:53 AM PATIENT REFERRED TO: [facility] EMERGENCY DEPT [address] [place] [phone] Go today DISCHARGE MEDICATIONS: Current Discharge [...] Dupree MD at 06/14/2024 1:15 PM EST [facility] Work Phone: 06-14-2024 Physician Emergency department Note Emergency Department Encounter [facility] EMERGENCY DEPT Patient: Sumit Green : 2005 [...] the emergency department as a transfer from [facility] for suspected pyelonephritis. Brief ED course/MDM: Patient evaluated here by ENTERER. Recommend admission to medicine and continued antibiotics. [...] for clarification.) Omar Dupree MD Acute Care [facility] Omar Dupree MD 06/14/24 0858 [employer] Phone: 05-27-2024 Emergency department Note [facility] ED EMERGENCY DEPARTMENT ENCOUNTER Pt Name: [...] culture. Procedure Abnormality Status --------- ------ Urine culture[[id number]] Urine Hold Cup[[id number]] Please view results for these tests on the individual orders. URINE CULTURE COMPLETE URINALYSIS WITH REFLEX TO CULTURE Narrative: The following orders were created for panel order Urinalysis complete with reflex to Culture. Procedure Abnormality Status --------- ------ Complete Urinalysis[[id number]] Abnormal Final result Please view results for [...] she has had visits in 2023 with ENTERER. Radiologic diagnostics interpreted by me: film images [...] Discharge 05/27/2024 11:00:20 AM PATIENT REFERRED TO: [place] [address] In 1 week DISCHARGE MEDICATIONS: New Prescriptions ALBUTEROL 108 (90 BASE) MCG/ACT INHALER Inhale 2 puffs every 4 hours as needed for wheezing. BENZONATATE (TESSALON) 200 MG CAPSULE Take 1 capsule (200 mg) by mouth every 8 hours for 7 days. Do not crush or chew. PREDNISONE (DELTASONE) 20 MG TABLET Take 2 tablets (40 mg) by mouth daily for 5 days. @[facility]([id number]:LAST:1)@ (Comment: Please notethis report has been produced [...] x 1 week. documented in this encounter [facility] 05-27-2024 Emergency department Triage note Pt ambulatory to room 6 with c/o flu like symptoms x 2 days with cough, sore throat, congestion . Pt reports having sweats last night that improved after shower. Pt reports having anterior left rib pain x 1 week. [facility] 05-27-2024 Physician Emergency department Note [facility] ED EMERGENCY DEPARTMENT ENCOUNTER Pt Name: [...] culture. Procedure Abnormality Status --------- ------ Urine culture[[id number]] Urine Hold Cup[[id number]] Please view results for these tests on the individual orders. URINE CULTURE COMPLETE URINALYSIS WITH REFLEX TO CULTURE Narrative: The following orders were created for panel order Urinalysis complete with reflex to Culture. Procedure Abnormality Status --------- ------ Complete Urinalysis[[id number]] Abnormal Final result Please view results for [...] she has had visits in 2023 with ENTERER. Radiologic diagnostics interpreted by me: film images [...] Discharge 05/27/2024 11:00:20 AM PATIENT REFERRED TO: [place] [address] In 1 week DISCHARGE MEDICATIONS: New Prescriptions ALBUTEROL 108 (90 BASE) MCG/ACT INHALER Inhale 2 puffs every 4 hours as needed for wheezing. BENZONATATE (TESSALON) 200 MG CAPSULE Take 1 capsule (200 mg) by mouth every 8 hours for 7 days. Do not crush or chew. PREDNISONE (DELTASONE) 20 MG TABLET Take 2 tablets (40 mg) by mouth daily for 5 days. @[facility]([id number]:LAST:1)@ (Comment: Please notethis report has been produced [...] Emergency Physician Mikal Woodson MD 05/27/24 1102 [facility] 05-06-2024 Hospital Discharg e instructions Ovi Delacruz MD - 05/06/2024 5:04 PM EST Extra strength Tylenol every 6 hours as needed for pain The following attachments cannot be sent through Care Everywhere.Acute Cystitis Discharge Instructions (Central African)documented in this encounter [facility] 05-06-2024 Emergency department Note EMERGENCY DEPARTMENT ENCOUNTER [...] Culture. Procedure Abnormality Status --------- ------ Complete Urinalysis[[id number]] Abnormal Final result Please view results for [...] to Culture hCG, urine, qualitative Complete Urinalysis [facility] MDM: 18 y.o. presented with abdominal pain. [...] Discharge 05/06/2024 05:03:48 PM PATIENT REFERRED TO: [facility] [place] [id number] I prescribed: New Prescriptions CEPHALEXIN (KEFLEX) 500 [...] MD 05/06/24 1708 documented in this encounter [facility] 05-06-2024 Physician Emergency department Note EMERGENCY DEPARTMENT [...] Culture. Procedure Abnormality Status --------- ------ Complete Urinalysis[[id number]] Abnormal Final result Please view results for [...] to Culture hCG, urine, qualitative Complete Urinalysis [facility] MDM: 18 y.o. presented with abdominal pain. [...] Discharge 05/06/2024 05:03:48 PM PATIENT REFERRED TO: [address] [id number] I prescribed: New Prescriptions CEPHALEXIN (KEFLEX) 500 [...] (electronically signed) Ovi Delacruz MD 05/06/24 1708 [facility] 07-16-2023 Discharge summary Note Date/Time July 16, 2023 8:10pm [facility] Medical Records Department [address] [place] [address] Emergency Department Summary 07/16/23 MR#: [id number] Acct: [id number] Name: SUMIT GREEN Rep #:[id number] : 2005 17 From: Umer Messina MD [...] % (Auto) 50.2 Lymph % (Auto) 36.4 [place] % (Auto) 9.5 H Eos % (Auto) [...] is located on your insurance card issued [facility] by care source. In light of your constellation of symptoms and chronic diarrhea refer to Dr. Maloney who is the GI specialist on-call Disposition Disposition: Home, Self Care What to do if you have Problems For any increased pain, shortness of breath, bleeding, nausea or vomiting, chestpain, or any unexpected problems, contact your Primary Care Provider. Call [facility] ([phone]) or report to the closest Emergency Room. Call 911 if necessary. 07/16/232044 <Electronically signed by Umer Messina MD> Cosigner Signature (if applicable): CC: No Primary Care Physician ~ Signed [facility] Work Phone: 1(444) 757-944001-05-2024 NoteHNO ID: [id number] Author: GABY GONZALEZ APRN.GEAR MILLING MACHINE SET UP OPERATOR Service: ? Author Type: Nurse Practitioner Type: [...] OB History No obstetric history on file. Court Operations Clerk History LMP: Age at Menarche: Age at First : Age at Menopause: Court Operations Clerk History Comments: Sexual Activity: No sexual [...] external genitalia normal, normal Bartholin's glands, urethra, [place]'s glands, no vulvar lesions, no cervical lesions, [...] she would like to proceed Gaby Gonzalez APRN.[facility] noteNo assessment information availableWCincinnati Children's [facility] Work Phone: Evaluation note* Diagnosis Weight loss Loss of [facility] Diagnosis Diarrhea, unspecified type documented in this encounter [facility] note* Diagnosis Lower abdominal pain- Primary Abdominal pain, other specified site Acute cystitis with hematuria [facility] Acute cough- Primary Dysuria [facility] Diagnosis Threatened - Primary [facility]* Diagnosis Recurrent UTI (urinary tract infection) complicating , first trimester- Primary Pyelonephritis affecting , antepartum [facility] Diagnosis Recurrent UTI (urinary tract infection) complicating , first trimester- Primary [facility] Diagnosis Recurrent UTI (urinary tract infection) complicating , first trimester- Primary Recurrent UTI (urinary tract infection) complicating , first trimester- Primary [facility] Recurrent UTI (urinary tract infection) complicating , first trimester- Primary Recurrent UTI (urinary tract infection) complicating , first trimester- Primary Amenorrhea Absence of menstruation [facility] Diagnosis Recurrent UTI (urinary tract infection) complicating , first trimester- Primary Threatened [facility] Diagnosis Recurrent UTI (urinary tract infection) complicating , first trimester- Primary Encounter for supervision in primigravida, antepartum- Primary Vaping nicotine dependence, tobacco product [facility] Diagnosis Recurrent UTI (urinary tract infection) complicating , first trimester- Primary Encounter for supervision in primigravida, antepartum- Primary Vaping nicotine dependence, tobacco product Dysuria- Primary Encounter for supervision of normal first , first trimester care, first in second trimester Iron deficiency anemia secondary to inadequate dietary iron intake [facility] Diagnosis Recurrent UTI (urinary tract [...] vulva and vagina [facility] Diagnosis Recurrent UTI (urinary tract [...] [facility] Diagnosis Recurrent UTI (urinary tract [...] of anorexia nervosa [facility] Diagnosis Recurrent UTI (urinary tract [...] in second trimester [facility] [...] type [facility] Additional Instructions The name of your primary care doctor is located on your insurance card issued to you by care source. In light of your constellation of symptoms and chronic diarrhea refer to Dr. Maloney who is the GI specialist on-callWCincinnati Children's [facility] Work Phone: Hospital Discharge instructions* Attachments The following attachments cannot be sent through Care Everywhere. * Dysuria Discharge Instructions, Adult (Central African) * Cough Discharge Instructions, Adult (Central African) documented in [facility] Dis[facility] instructions Additional Instructions See attached list for safe medications you can take during .[facility] Work Phone: Reason for referral (narrative)No reason for referral information availableWCincinnati Children's [facility] Work Phone: Chief Complaint and Reason for Visit Chief Complaint R HAND Chief Complaint BILAT BREAST PAIN SUSAN MPS Chief Complaint BILAT BREAST PAIN SUSAN MPS vaginal syncope Chief Complaint FATIGUE Chief Complaint Admit Date vaginal discharge, congestion September 26, 2024 7:08am Chief Complaint Admit Date vaginal discharge, congestion September 26, 2024 7:08am R/O November 22, 2024 11:3 0pm Summary Purpose Family History No Family History Records FoundNo Family History Records FoundNo Family History Records FoundNo Family History Records FoundNo Family History Records Found Advance Directives No Advanced Directives Records Found Advance Directive Response Recorded Date/ Time Living Will No July 16, 2023 6:58pm Power of Quality Improvement Specialist No July 15 6:58pm Date Activated Date Inactivated Comments 06/14/2024 9:08 AM Date Activated Date Inactivated Comments 06/14/2024 9:08 AM 06/16/2024 5:12 PM Date Activated Date Inactivated Comments 06/14/2024 9:08 AM 06/16/2024 5:12 PM Advance Directive Response Recorded Date/ Time Do you have a Healthcare Power of Quality Improvement Specialist? No September 26, 2024 7:30am Additional Source [...] Physician Primary Care Provider Active Galina Valdez CONVEYOR BELT REPAIRER, CONVEYOR BELT REPAIRER-C Attending Provider, Referring Provider Active Team Status: [...] Primary Care Physician Primary Care Provider Active Personal Fitness Manager Relationship Specialty Start Date End Date Jeremy Vásquez MD [address] [place] [address] (Fax) PCP - General Pediatrics 04/03/20 Personal Fitness Manager Relationship Specialty Start Date End Date Jeremy Vásquez MD [address] [place] [address] (Fax) PCP - General Pediatrics 04/03/20 Personal Fitness Manager Relationship Specialty Start Date End Date Jeremy Vásquez [address] [place] [address] (Fax) PCP - General Pediatrics 06/14/24 Personal Fitness Manager Relationship Specialty Start Date End Date Jeremy Vásquez [address] [place] [address] (Fax) PCP - General Pediatrics 06/14/24 Personal Fitness Manager Relationship Specialty Start Date End Date Jeremy Vásquez [address] [place] [phone] PCP - General Pediatrics 06/14/24 Personal Fitness Manager Relationship Specialty Start Date End Date Jeremy Vásquez [address] [place] [phone] (Fax) PCP - General Pediatrics 06/14/24 Personal Fitness Manager Relationship Specialty Start Date End Date Jeremy Vásquez [address] [place] [phone] (Fax) PCP - General Pediatrics 06/14/24 Personal Fitness Manager Relationship Specialty Start Date End Date Jeremy Vásquez [address] [place] [phone] (Fax) PCP - General Pediatrics 06/14/24 Personal Fitness Manager Relationship Specialty Start Date End Date Jeremy Vásquez [address] [place] [phone] (Fax) PCP - General Pediatrics 06/14/24 Team Status: Inactive Member Role Status Dates Dr. Reji Garcia MD Emergency Provider Active Start: September 26, 2024 End: September 26, 2024 No Primary Care Physician Primary Care Provider Active Start: September 26, 2024 End: September 26, 2024 Team Status: Active Member Role/Relationship Status Dates No Primary Care Physician Primary Care Provider Active Team Status: Inactive Member Role/Relationship Status Dates Dr. Reji Garcia MD Attending Provider Active Start: September 26, 2024 End: September 26, 2024 Dr. Reji Garcia MD Emergency Provider Active Start: September 26, 2024 End: September 26, 2024 No Primary Care Physician Primary Care Provider Active Start: September 26, 2024 End: September 26, 2024 Team Status: Inactive Member Role/Relationship Status Dates No Primary Care Physician Primary Care Provider Active Start: November 22, 2024 End: November 23, 2024 Dr. Alyx Navarro DO Attending Provider Active Start: November 22, 2024 End: November 23, 2024 Dr. Alyx Navarro DO Referring Provider Active Start: November 22, 2024 End: November 23, 2024 INFORMATION SOURCE (unrecogn ized section and content) DATE CREATED AUTHOR 05/22/2023 [facility] DATE CREATED AUTHOR AUTHOR'S ORGANIZ ATION 07/29/2023 [facility] DATE CREATED AUTHOR AUTHOR'S ORGANIZ ATION 07/30/2023 [facility] DATE CREATED AUTHOR AUTHOR'S ORGANIZ ATION 11/23/2024 [facility] DATE CREATED AUTHOR AUTHOR'S ORGANIZ ATION 11/25/2024 [facility] Reason for Visit (unrecogniz ed section and content) Reason Comments Abdominal Pain Vaginal Bleeding Reason Comments Flu Symptoms Reason Comments Dizziness Vaginal Itching Specialty Diagnoses / Procedures Referred By Contac t Referred To Contact Diagnoses Pyelonephritis affecting , antepartum Recurrent UTI (urinary tract infection) complicating , first trimester Procedures . Jef Fabian DO [address] [address] Phone: tel: fax: [facility] EMERGENCY DEPT [address] [place] [address] Phone: tel: Referral ID Status Reason Start Date Expiration Date Visits Re quested Visits Authorized [id number] 1 Reason Comments Hospital Follow-up Uti, yeast infection , Reason Comments Follow-up U/S follow up Reason Comments Follow-up Reason Comments Dizziness Fainting Reason Comments Routine Visit 13 weeks, 2 days. No c/o. Reason Comments Abdominal Pain Reason Comments Routine Visit Discuss short ter m disability Reason Comments Routine Visit Reason Comments Follow-up Nurse visit Reason Onset Date Comments Abdominal Pain 11/22/2024 Reason Comments Contractions Rupture of Membranes Scheduled Active and Recently Administ ered Medications [...] Nereyda Woodson RN)0309 (Stopped - Provider: Nereyda Woodson, RN) cefTRIAXone (Rocephin) 1 g in sodium [...] at 1120 1313 (Given - Provider: Gaby Acuna, YUDI) 1231 (Given - Provider: Shamar Estes RN) 0925 (Given - Provider: Bella Gunn, YUDI) sodium chloride 0.9 % bolus 1,000 mL (COMPLETED) 1,000 mL, IntraVENous, at 1,000 mL/hr, Administer over 1 Hours, Once, On Chastity 06/14/24 at 0135, For 1 dose 0135 (New Bag - Provider: Nereyda Woodson RN)0310 (Stopped - Provider: Nereyda Woodson, RN) [...] Santos RN)1601 (See Alternative - Provider: Shamar Estes, RN) 0105 (See Alternative - Provider: Cecelia [...] Provider: Cecelia Santos RN)1601 (Given - Provider: Shmaar Estes, YUDI) 0105 (Given - Provider: Cecelia Santos RN) [...] (Select all that apply): Urinary Tract Infection 184 (Given - Provider: Vania Palacios RN) Scheduled Medication Order 11/21/2024 11/22/2024 11/23/2024 acetaminophen (Tylenol) tablet 1,000 mg (COMPLETED) 1,000 mg, Oral, Once, On Tue11/23/24 at 1845, For 1 dose, Maximum dose of acetaminophen is 4000 mg from all sources in 24 hours. 1925 (Given - Provid er: Sachi Wilkins RN) cyclobenzaprine (Flexeril) tablet 5 mg (COMPLETED) 5 mg, Oral, Once, On Tue11/23/24 at 1845, For 1 dose 1927 (Given - Provid er: Sachi Wilkins RN) Lidocaine 4 % patch 1 patch 1 patch, TransDERmal, Administer over 12 Hours, Daily, First dose on Tue11/23/24 at 1845, Apply patch to area of pain. Patch may remain in place for up to 12 hours in any 24 hour period. 193 (Medication Yoselin lied - Provider: Sachi Wilkins RN)2043 (Due: Medication Removed - Provider: Automatic Discharge Provider - Comment: Time automatically adjusted from order being discontinued) FOR RECORDS PERTAINING TO PATIENTS WHO ARE [...] BE BASED ON THE PRIMARY CLINICAL RECORDS. [facility]. provides no warranty or guarantee of the accuracy or completeness of information in this document.
--- NOTE | 2024-11-25 13:18 | CM.ED ---
Social Work Date of referral: 11/25/24 Reason for referral: Resources Referred by: Social Work Identification Patient provided consent to social work visit. Accounts Payable Specialist inquired about whether or not patient is connected to a dental provider which patient confirmed she is, through [facility] in [place]. Patient declined the need for any additional resources at this time. Ludivina Mariee, CLIENT SERVICES ACCOUNT MANAGER, [employer] SHIP[employer]
--- NOTE | 2024-11-25 13:30 | ED.VIS.DENTA ---
HPI History of Present Illness Chief Complaint: Dental Narrative Narrative: Chief complaint and HPI: Left upper and lower dental pain. 18-year-old female with past medical history of bipolar and currently 28 weeks presents for evaluation of left upper and lower dental pain. Patient states she is concerned that her wisdom teeth are infected. Onset of symptoms yesterday. She denies any fever, chills, shortness of breath, chest pain, difficulty speaking, difficulty swallowing. Follows regularly with a dentist. Review of systems: See HPI Medications: As listed on the chart Allergies: As listed on the chart PFSH: Per chart Vital signs: As listed on the chart. Reviewed. Physical exam: Gen: A&O x3, NAD Head: Normocephalic, atraumatic Eyes: No sclera icterus, conjunctiva clear, PERRL, EOMI ENT: TMs clear BL, moist mucous membranes, posterior oropharynx unremarkable, uvula midline, tonsils not enlarged, no tonsillar exudates, no submandibular swelling, no Darerl angina, no dental abscess, patient has mild gingiva irritation around tooth #17 -mildly tender to palpation. No foreign object. Tolerating secretions. Normal phonation. Neck: Trachea midline, No JVD, Full ROM, No meningismus no lymphadenopathy. No swelling. CV: RRR, no murmurs, no peripheral edema Resp: Lungs CTA BL, no w/r/c GI: Abd soft, non-distended, non-tender, no r/r/g Musc: Full ROM, no deformity Skin: Warm, dry, no rash Neuro: Alert, oriented, grossly intact, sensation intact Psych: Cooperative, appropriate mood and affect [facility] Medical History Bipolar 1 disorder Medical History no medical history Home Medications ?Medication ?Instructions ?Recorded ?Last Taken ?Type ibuprofen 600 mg tablet 600 mg PO Q8H PRN fever or pain 05/25/24 Unknown Rx #30 tabs miconazole nitrate 2 % vaginal 1 appful vaginal QHS 7 days #45 09/26/24 Unknown Rx cream (Miconazole-7) grams vit no.95-ferrous 1 tab PO DAILY 11/22/24 Unknown History fumarate 28 mg-folic acid 800 mcg tablet () cyclobenzaprine 5 mg tablet 5 mg PO TID PRN PRN muscle spasm 11/25/24 Unknown History lidocaine 5 % topical patch 2 patch topical DAILY 11/25/24 Unknown History terconazole 0.4 % vaginal cream 1 appful vaginal QHS 11/25/24 Unknown History Allergy/AdvReac Type Severity Reaction Status Date / Time No Known Allergies Allergy Verified 11/25/24 12:34 Social History household members: significant other Smoking Status: Former smoker EXAM Physical Exam Const Vital Signs: 11/25/24 12:31 Temperature 98.9 F Temperature Source Oral Pulse Rate 113 H Respiratory Rate 16 Blood Pressure 110/70 Blood Pressure Mean 83 Pulse Ox 98 Oxygen Delivery Method Room Air MDM MDM MDM Narrative Medical decision making narrative: 18-year-old female with past medical history of bipolar and currently 28 weeks presents for evaluation of left upper and lower dental pain. Patient states she is concerned that her wisdom teeth are infected. Onset of symptoms yesterday. She denies any fever, chills, shortness of breath, chest pain, difficulty speaking, difficulty swallowing. Follows regularly with a dentist. Differential diagnosis includes but is not limited to dental infection, dental abscess. Physical exam findings are consistent with likely early dental infection. No abscess for incision and drainage. Patient nontoxic-appearing. No acute distress. Tolerating p.o. intake. No systemic symptoms. I do not think any laboratory workup is needed. Patient stable to discharge home and follow-up outpatient with her dentist. Return precautions explained. Will place her on Augmentin which is safe in . First antibiotic given here. She confirmed understanding the plan. Tylenol and ice as needed for pain. Impression: 1. Left lower dental infection 2. 28 weeks Discharge Plan Triage Chief Complaint: Dental ED Provider: Momo Estrada Dx/Rx/DC Orders Prescriptions: No Action ibuprofen 600 mg tablet 600 mg PO Q8H PRN (Reason: fever or pain) Qty: 30 0RF miconazole nitrate [Miconazole-7] 2 % cream 1 appful vaginal QHS 7 Days Qty: 45 0RF PNV cmb#95-ferrous fumarate-FA [] 28 mg iron- 800 mcg tablet 1 tab PO DAILY cyclobenzaprine 5 mg tablet 5 mg PO TID PRN PRN (Reason: muscle spasm) terconazole 0.4 % cream 1 appful vaginal QHS lidocaine 5 % adhesive patch,medicated 2 patch topical DAILY Primary Care Provider: Care Physician,No Primary Referrals: Care Physician,No Primary [Primary Care Provider] - Print Language: [place]
[2024-11-25 13:48] VITALS: BP 102/68; PULSE 66; RESP 14; TEMP 36.7; O2SAT 97
== END 2024-11-25 13:49 | disposition home or self-care (01) ==
PROVIDERS: Emergency Provider Surgery; Visit Provider Surgery
DX: O99.613 Diseases of the digestive system complicating pregnancy, third trimester (principal); K04.7 Periapical abscess without sinus; Z87.891 Personal history of nicotine dependence; Z3A.28 28 weeks gestation of pregnancy; K08.89 Other specified disorders of teeth and supporting structures
CPT/HCPCS: 99282